=== PATIENT | female | born 1990 | race Caucasian/White ===

== ENCOUNTER 2016-11-18 11:09 | Inpatient (IN) | payer MEDICARE, MEDICAID ==
[~2016-11-18] VITALS: Ht 160 cm; Wt 78.8 kg
[~2016-11-18 11:09] MED LIST: /DIVA50TA PO; ABIL400I IM; ADDE10CA PO; AMBI10TA PO; AMBI6.25 PO; ATIV1TAB10 PO; ATIV1TAB7 PO; BENZ5TA PO; CIPRODEX AU; CITA20TA2 PO; COGENTIN PO; DEPA1TAB3 PO; DEPA500T2 PO; HALD5INJ2 IM; HALDOL PO; HALO1TA PO; LEVA750T PO; MINI1CAP PO; ORTHTAB5 PO; RISP1TAB21 PO; RISP1TAB3 PO; RISP1TAB41 PO; RISP25INJ IM; RISP4TAB33 PO; TRAZ50TA4 PO; TRIL1TAB PO; TYLE325T5 PO; ZIPR80CA12 PO; [UNRECOGNIZED DRUG - OTHER] PO; [UNRECOGNIZED DRUG - OTHER] PO; [UNRECOGNIZED DRUG - OTHER] PO; no home meds
[2016-11-18 12:23] LABS: MEAN CORPUSCULAR HEMOGLOBIN 28.3 pg (27.0-33.0); MEAN CORPUSCULAR HGB CONC 33.8 g/dl (32.0-36.5); MEAN CORPUSCULAR VOLUME 83.7 fl (80.0-96.0); RED CELL DISTRIBUTION WIDTH 12.8 % (11.5-14.5); WHITE BLOOD COUNT 10.8 K/mm3 (4.0-10.0)
[2016-11-18 12:34] LABS: CONTROL LINE HCG INT CTR LINE PRESENT
[2016-11-18] MEDS ORDERED: GEOD40CA2 PO (12:34)
[2016-11-18 12:39] LABS: METHADONE URINE NEGATIVE (NEGATIVE)
[2016-11-18 12:48] LABS: ALBUMIN 4.4 GM/DL (3.2-5.2); ALBUMIN/GLOBULIN RATIO 1.42 (1.00-1.93); ALKALINE PHOSPHATASE 72 U/L (45-117); ALT/SGPT 26 U/L (12-78); ANION GAP 10 MEQ/L (8-16); AST/SGOT 21 U/L (15-37); BILIRUBIN,DIRECT 0.1 MG/DL (0.0-0.2); BILIRUBIN,TOTAL 0.5 MG/DL (0.2-1.0); BLOOD UREA NITROGEN 12 MG/DL (7-18); CALCIUM LEVEL 9.2 MG/DL (8.5-10.1); CARBON DIOXIDE LEVEL 24 MEQ/L (21-32); CHLORIDE LEVEL 105 MEQ/L (98-107); CREATININE FOR GFR 0.75 MG/DL (0.55-1.02); GLOMERULAR FILTRATION RATE > 60.0 (>60); GLUCOSE, FASTING 132 MG/DL (70-105); POTASSIUM SERUM 3.9 MEQ/L (3.5-5.1); SODIUM LEVEL 139 MEQ/L (136-145); TOTAL PROTEIN 7.5 GM/DL (6.4-8.2)
[2016-11-18] MEDS ORDERED: ZIPR80CA12 PO (13:58)
[2016-11-18 15:35] VITALS: BP 130/90
[2016-11-18] MEDS ORDERED: traZODone 50 MG TAB PO PRN (16:30)
[2016-11-18] MEDS ORDERED: MAALOX 30 ML SUSP *UDC PO PRN (16:30)
[2016-11-18] MEDS ORDERED: ACETAMINOPHEN TAB 650MG DOSE (2X325MG) PO PRN (16:30)
[2016-11-18] MEDS ORDERED: MOM 30ML SUSPENSION UDC PO PRN (16:30)
[2016-11-18] MEDS: ZIPRASIDONE 80 MG CAP (GEODON) PO SCH (17:47)
[2016-11-19] MEDS ORDERED: diphenhydrAMINE INJ 50MG/ML VIAL (J1200) IM PRN (11:15)
[2016-11-19] MEDS ORDERED: HALOPERIDOL 5 MG/ML VIAL (J1630) IM PRN (11:15)
[2016-11-19] MEDS ORDERED: LORazepam 2 MG/ML VIAL (J2060) IM PRN (11:15)
[2016-11-19] MEDS ORDERED: HALOPERIDOL 5 MG TAB PO PRN (11:15)
[2016-11-19] MEDS ORDERED: LORazepam 2 MG TAB PO PRN (11:15)
[2016-11-19] MEDS ORDERED: diphenhydrAMINE 50 MG CAP PO PRN (11:15)
--- NOTE | 2016-11-19 11:38 | HPEPDOC ---
Medical History and Physical Date of Admission Nov 18, 2016 at 14:12 History and Physical PCP: None ATTENDING: Dr. Kam Hoffmann HPI: 26yoF admitted to [facility] for schizoaffective disorder, being medically examined today. Patient is currently lying on the floor next to her bed in her room. She is currently declining to participate with history or physical examination. History is taken from the chart. There were no verbalized complaints at this time. PMHx: Bipolar disorder Schizoaffective disorder Depression PTSD ADHD Chronic knee pain Chronic back pain PSHX: ear graft 1995 Tympanostomy tubes SOCHX: Resides in: [facility] Marital Status: Single Kids: [id number] son Employment: Unemployed Tobacco use: Prior smoker ETOH: denies Illicit Drugs: Denies IV Drug Use: Denies Tattoos done unprofessionally: Denies FAMHX: Mother: Alive, well Father: Alive, well Children: Alive, well ROS: Patient is unable to provide at this time. PE: Patient declines to participate at this time. EK04/05/16 Normal sinus rhythm with sinus arrhythmia Nonspecific ST-T wave abnormalities No significant change when compared to prior tracing of 06/04/2014 A&P: 26yoF admitted to [facility] for schizoaffective disorder. 1. Psych. Plan per Psychiatry. EKG on file. Will update. 2. History of Chronic knee pain and chronic back pain. Tylenol as needed. 3. Follow up. No Primary Care Provider. Will attempt to establish PCP on discharge. 4. Mild leukocytosis. Patient is afebrile. Likely stress response. Recheck CBC in a.m. 5. Staff member Abril MAYERS was present during attempt to complete history and physical exam. Vital Signs Vital Signs Date Time Temp Pulse Resp B/P Pulse Ox O2 Delivery O2 Flow Rate FiO2 11/18/16 15:35 99.0 90 16 130/90 98 Room Air Laboratory Data Labs 24H Laboratory Tests 2 11/18/16 12:02: Acetaminophen Level < 2.0L, Aspartate Amino Transf (AST/SGOT) 21, Alanine Aminotransferase (ALT/SGPT) 26, Alkaline Phosphatase 72, Total Bilirubin 0.5, Direct Bilirubin 0.1, Albumin 4.4, Albumin/Globulin Ratio 1.42, Anion Gap 10, Calcium Level 9.2, Ethyl Alcohol Level < 0.003, Glomerular Filtration Rate > 60.0, Human Chorionic Gonadotropin, Qual NEGATIVE, Salicylates Level < 1.7L, Thyroid Stimulating Hormone (TSH) 1.470, Total Protein 7.5, Urine Amphetamines Screen NEGATIVE, Urine Benzodiazepines Screen NEGATIVE, Urine Opiates Screen NEGATIVE, Urine Barbiturates Screen NEGATIVE, Urine Cannabinoids Screen NEGATIVE , Urine Cocaine Metabolite Screen NEGATIVE, Urine Methadone Screen NEGATIVE, Urine Phencyclidine Screen NEGATIVE CBC/BMP Laboratory Tests 11/18/16 12:02 Red Blood Count 5.30, Mean Corpuscular Volume 83.7, Mean Corpuscular Hemoglobin 28.3, Mean Corpuscular Hemoglobin Concent 33.8, Red Cell Distribution Width 12.8 Home Medications Scheduled Ziprasidone Hydrochloride (Ziprasidone HCl) 80 Mg Cap 80 MG PO QPM Allergies Coded Allergies: Amoxicillin (Verified Allergy, Intermediate, Hives , 11/01/13) Sulfa Drugs (Verified Allergy, Mild, Rash, fever, vomiting, 11/01/13) Azithromycin (Verified Allergy, Unknown, 11/18/16) interacts with Brittney Shrestha Nov 19, 2016 11:37
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
[2016-11-19] MEDS: ZIPRASIDONE 80 MG CAP (GEODON) PO SCH (17:41)
[2016-11-19 18:00] VITALS: BP 130/87
[2016-11-20 06:30] VITALS: BP 139/96
[2016-11-20 07:37] LABS: BASO % 0.4 % (0.0-1.0); EOS # 0.3 K/mm3 (0.0-0.50); EOS % 4.1 % (0.0-3.0); LARGE UNSTAINED CELL # 0.2 K/mm3 (0.0-0.4); LYMPH # 2.8 K/mm3 (1.5-6.5); MEAN CORPUSCULAR HEMOGLOBIN 28.6 pg (27.0-33.0); MEAN CORPUSCULAR HGB CONC 33.6 g/dl (32.0-36.5); MEAN CORPUSCULAR VOLUME 85.1 fl (80.0-96.0); MONO # 0.3 K/mm3 (0.0-0.8); MONO % 4.4 % (0.0-5.0); NEUTROPHILS # 3.8 K/mm3 (1.8-7.7); PLATELET COUNT, AUTOMATED 299 k/mm3 (150-450); RED CELL DISTRIBUTION WIDTH 12.9 % (11.5-14.5); WHITE BLOOD COUNT 7.3 K/mm3 (4.0-10.0)
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
[2016-11-20] MEDS: ZIPRASIDONE 80 MG CAP (GEODON) PO SCH (17:40)
[2016-11-20] MEDS ORDERED: ZIPRASIDONE 20MG CAPSULE (GEODON) PO SCH (18:00)
[2016-11-21 06:25] VITALS: BP 143/100
--- NOTE | 2016-11-21 13:52 | IPNPDOC ---
[facility] Progress Note Progress Note DATE OF SERVICE: 11/21/16 HISTORY: Day 4 of admission for Bipolar I disorder VITAL SIGNS: See below. NEW TEST RESULTS: na CURRENT MEDICATIONS: See below. MENTAL STATUS EXAMINATION: Patient is a 26-year old female, who is being treated for delusions and paranoia with fast onset earlier this week. Pt is observed on the unit pacing rapidly through the hallways much of the time. Speech: Is deliberate and fluent Language skills are very good Thought processes include: paranoia, suspicion, delusions of identify, persecution. Can be logical when talking about her past, or her education. Thought content: answered questions appropriately Abstract reasoning, and computation: good Description of abnormal or psychotic thoughts: persistent belief that she is here illegally, the "police illegally entered my home". Judgment: fair Insight: poor Orientation: oriented to day, time and situation and person Recent and remote memory: intact Attention span and concentration: about 10 minutes Fund of knowledge: very good Mood:"Okay. I'm stable". Affect: hyper DIAGNOSES: 1. bipolar I, current episode depressed with delusional features, denies voices or visions 2. 3. ASSESSMENT:Pt is complying with medication increase. She has taken 2 dose of Geodon at 100 mg (increased from 80 mg on admission). Will continue to titrate Geodon upwards. Outpatient provider, Lesa, at [facility] states that on the day prior to admission, Latrice was "really good, the best we have seen her". They are perplexed by her decompensation. To their knowledge she was taking her medications as prescribed. No release on file to contact family to see if they can verify this. Pt has tolerated the increase in geodon without difficulty. MANAGEMENT PLAN: Raise geodon to 120mg tonight with dinner. 80 mg and 40 mg. Pt was agreeable to talking with web content writer this morning but declined to talk this afternoon when she was going to be informed of her dose increase. We hope she will accept the increase without any difficulty. Dosing discussed with Dr. Bernal. TIME SPENT: 30 minutes. Vital Signs Vital Signs Date Time Temp Pulse Resp B/P Pulse Ox O2 Delivery O2 Flow Rate FiO2 11/21/16 06:25 98.5 76 16 143/100 11/18/16 15:35 98 Room Air Current Medications Current Medications Acetaminophen (Tylenol Tab) 650 mg Q6HP PRN PO HEADACHE or DISCOMFORT; Start at 16:30; Stop 12/18/16 at 16:29 Al Hydrox/Mg Hydrox/Simethicone (Mylanta) 30 ml Q4HP PRN PO HEARTBURN/ INDIGESTION; Start 11/18/16 at 16:30; Stop 12/18/16 at 16:29 Diphenhydramine HCl (Benadryl) 50 mg Q6HP PRN IM AGITATION; Start 11/19/16 at 11:15; Stop 12/19/16 at 11:14; Status Cancel Diphenhydramine HCl (Benadryl) 50 mg Q8HP PRN PO AGITATION; Start 11/19/16 at 11:15; Stop 12/19/16 at 11:14 Haloperidol (Haldol) 5 mg Q8HP PRN IM AGITATION; Start 11/19/16 at 11:15; Stop 12/19/16 at 11:14; Status Cancel Haloperidol (Haldol) 5 mg Q8HP PRN PO AGITATION; Start 11/19/16 at 11:15; Stop 12/19/16 at 11:14 Home Med (Med Rec Complete!) ASDIRECTED XX ; Start 11/18/16 at 14:00; Stop 05/27 at 14:01; Status DC Lorazepam (Ativan) 2 mg Q6HP PRN IM AGITATION; Start 11/19/16 at 11:15; Stop at 11:14; Status Cancel Lorazepam (Ativan) 2 mg Q8HP PRN PO AGITATION; Start 11/19/16 at 11:15; Stop at 11:14 Magnesium Hydroxide (Milk Of Magnesia) 30 ml DAILYPRN PRN PO CONSTIPATION; Start 11/18/16 at 16:30; Stop 12/18/16 at 16:29 Trazodone HCl (Desyrel) 50 mg QHSP PRN PO INSOMNIA; Start 11/18/16 at 16:30; Stop 12/18/16 at 16:29 Ziprasidone (Geodon) 20 mg DAILY@18 PO Last administered on 11/20/16t 17:40; Start 11/20/16 at 18:00; Stop 12/20/16 at 17:59 Ziprasidone (Geodon) 80 mg DAILY@18 PO Last administered on 11/20/16t 17:40; Start 11/18/16 at 18:00; Stop 12/18/16 at 17:59 Allergies Coded Allergies: Amoxicillin (Verified Allergy, Intermediate, Hives , 11/01/13) Sulfa Drugs (Verified Allergy, Mild, Rash, fever, vomiting, 11/01/13) Azithromycin (Verified Allergy, Unknown, 11/18/16) interacts with Leticia Hurley Nov 21, 2016 13:52
[2016-11-21] MEDS: ZIPRASIDONE 20MG CAPSULE (GEODON) PO SCH (17:58)
[2016-11-21] MEDS: ZIPRASIDONE 80 MG CAP (GEODON) PO SCH (17:58)
[2016-11-21 18:00] VITALS: BP 153/91
[2016-11-22] MEDS ORDERED: HALOPERIDOL 5 MG/ML VIAL (J1630) IM STA (01:57)
[2016-11-22] MEDS ORDERED: diphenhydrAMINE INJ 50MG/ML VIAL (J1200) IM STA (01:57)
[2016-11-22] MEDS ORDERED: LORazepam 2 MG/ML VIAL (J2060) IM STA (01:57)
[2016-11-22] MEDS: **PENDING PPD ENTRY XX SCH (09:00)
--- NOTE | 2016-11-22 10:19 | IPNPDOC ---
[facility] Progress Note Progress Note DATE OF SERVICE: 11/22/16 HISTORY: day 6 of admission VITAL SIGNS: See below. NEW TEST RESULTS: none CURRENT MEDICATIONS: See below. MENTAL STATUS EXAMINATION: Patient is a 26-year old female, who is being tx for bipolar disorder, current episode depressed with delusions. Pt had a very poor evening and night last night. She believed the med nurse was attempting to give her "a date rape drug" when in fact it was her Geodon. She states the medication was not taken out of the machine so she refused to take it. She became agitated later in the night, running toward the exit and had to be redirected by staff. She threatened to kill staff and picked up a chair. agitation orders were obtained from lead mason tender M.D. and pt was medicated with haldol 10 mg, ativan 2 mg and benadryl 50 mg IM. She was placed in the seclusion room and given time to calm and get her thoughts and behavior together. This morning she would not talk to advertising copy writer when initially assessed. Later after she slept more she asked to be returned to her room which nursing staff allowed. [employer] again attempted to engage her and she insists on being here illegally and accuses staff of trying to drug her. She does not offer any assurances that she will keep her behavior under control while on the unit. She began to talk very loudly. She is pacing. She remains delusional about staff intentions, medications and unit activities. Pt must have been concealing the fact she had stopped her medications prior to admission. She again denied advertising copy writer permission to speak with her family. It has been explained to her that her failure to cooperate with request for information is delaying her release from the hospital. She does not offer any insight into how sick she currently is. Speech: Is loud, rapid Language skills are spontaneous when she wants to be Thought processes include: delusions, fear, suspicions, persecution, identity theft. Thought content: "my parents have stolen my identity" "I am not an idiot. What you are ding here is illegal". Abstract reasoning, and computation: poor Description of associations: fair Description of abnormal or psychotic thoughts: delusions of persecution, denies SI, HI and hallucinations. she did appear at one time to be watching something not observed by advertising copy writer. Judgment: poor Insight: very limited, poor. Orientation: "I'm not an idiot". Recent and remote memory: good Attention span and concentration: fair Language: good Fund of knowledge: good Mood: angry/depressed Affect: irritable DIAGNOSES: 1. Bipolar II disorder, current episode depressed with delusions 2. Cluster B traits 3. ASSESSMENT: pt was not compliant to medication regime last night when she was to receive an increased dose of geodon. She received IM's last night as she was DTS/DTO. She denies any threats were made by her to the staff offering, "I was only trying to defend myself". Pt remains delusional and agitated. She is visible in the milieu and attending and participating in groups. Pt reports eating and sleeping well. Confirmed by staff. MANAGEMENT PLAN: will see about getting a geodon level, continue geodon at 120 mg with food at 1800, continue close observation, keep trying to get pts consent to speak with parents. Pt would benifit from IM medication as an outpatient but is not rationale or logical enough at this time to have this conversation about changing her meds. She cannot be trusted to take oral medications without strict supervision. This would include observing her after ingestion to make sure she does not vomit. Pt would benefit from supervised housing if she refuses IM meds to help with medication compliance. Will discuss with discharge planners. Pt will be referred to [facility] for ongoing treatment as it appears her inpatient stay will be prolonged. She is not demonstrating much progress since her admission and in fact seems to be getting more delusional. Her delusions are penetrating every area of her life and she is not cooperating with discharge planning. TIME SPENT: minutes. Vital Signs Vital Signs Date Time Temp Pulse Resp B/P Pulse Ox O2 Delivery O2 Flow Rate FiO2 11/21/16 18:00 99.2 95 16 153/91 11/18/16 15:35 98 Room Air Current Medications Current Medications Acetaminophen (Tylenol Tab) 650 mg Q6HP PRN PO HEADACHE or DISCOMFORT; Start at 16:30; Stop 12/18/16 at 16:29 Al Hydrox/Mg Hydrox/Simethicone (Mylanta) 30 ml Q4HP PRN PO HEARTBURN/ INDIGESTION; Start 11/18/16 at 16:30; Stop 12/18/16 at 16:29 Diphenhydramine HCl (Benadryl) 50 mg Q6HP PRN IM AGITATION; Start 11/19/16 at 11:15; Stop 12/19/16 at 11:14; Status Cancel Diphenhydramine HCl (Benadryl) 50 mg Q8HP PRN PO AGITATION; Start 11/19/16 at 11:15; Stop 12/19/16 at 11:14 Haloperidol (Haldol) 5 mg Q8HP PRN IM AGITATION; Start 11/19/16 at 11:15; Stop 12/19/16 at 11:14; Status Cancel Haloperidol (Haldol) 5 mg Q8HP PRN PO AGITATION; Start 11/19/16 at 11:15; Stop 12/19/16 at 11:14 Home Med (Med Rec Complete!) ASDIRECTED XX ; Start 11/18/16 at 14:00; Stop 05/27 at 14:01; Status DC Lorazepam (Ativan) 2 mg Q6HP PRN IM AGITATION; Start 11/19/16 at 11:15; Stop at 11:14; Status Cancel Lorazepam (Ativan) 2 mg Q8HP PRN PO AGITATION; Start 11/19/16 at 11:15; Stop at 11:14 Magnesium Hydroxide (Milk Of Magnesia) 30 ml DAILYPRN PRN PO CONSTIPATION; Start 11/18/16 at 16:30; Stop 12/18/16 at 16:29 Trazodone HCl (Desyrel) 50 mg QHSP PRN PO INSOMNIA; Start 11/18/16 at 16:30; Stop 12/18/16 at 16:29 Ziprasidone (Geodon) 20 mg DAILY@18 PO Last administered on 11/20/16 17:40; Start 11/20/16 at 18:00; Stop 11/21/16 at 14:14; Status DC Ziprasidone (Geodon) 40 mg DAILY@18 PO ; Start 11/21/16 at 18:00; Stop 12/21/16 at 17:59 Ziprasidone (Geodon) 80 mg DAILY@18 PO Last administered on 11/20/16 17:40; Start 11/18/16 at 18:00; Stop 12/18/16 at 17:59 Allergies Coded Allergies: Amoxicillin (Verified Allergy, Intermediate, Hives , 11/01/13) Sulfa Drugs (Verified Allergy, Mild, Rash, fever, vomiting, 11/01/13) Azithromycin (Verified Allergy, Unknown, 11/18/16) interacts with Leticia Hurley Nov 22, 2016 10:19
[2016-11-22] MEDS: ZIPRASIDONE 80 MG CAP (GEODON) PO SCH (17:29)
[2016-11-22] MEDS: ZIPRASIDONE 20MG CAPSULE (GEODON) PO SCH (17:29)
[2016-11-23 06:36] VITALS: BP 149/107
[2016-11-23] MEDS: **PENDING PPD ENTRY XX SCH (07:36)
[2016-11-23] MEDS ORDERED: TUBERCULIN PPD 5 UNITS/0.1 ML ID ONE (10:00)
[2016-11-23] MEDS: ZIPRASIDONE 80 MG CAP (GEODON) PO SCH (17:44)
[2016-11-23] MEDS: ZIPRASIDONE 20MG CAPSULE (GEODON) PO SCH (17:44)
[2016-11-23 18:00] VITALS: BP 157/101
[2016-11-24] MEDS: **PENDING PPD ENTRY XX SCH (09:00)
[2016-11-24] MEDS ORDERED: PPD DOCUMENTATION ENTRY MISC XX SCH (10:00)
[2016-11-24] MEDS: ZIPRASIDONE 20MG CAPSULE (GEODON) PO SCH (17:43)
[2016-11-24] MEDS: ZIPRASIDONE 80 MG CAP (GEODON) PO SCH (17:43)
[2016-11-25] MEDS: **PENDING PPD ENTRY XX SCH (09:00)
--- NOTE | 2016-11-25 13:50 | IPNPDOC ---
[facility] Progress Note Progress Note DATE OF SERVICE: 11/25/16 HISTORY:day 8 of admission. Pt admitted due to delusions with continue to be problematic. VITAL SIGNS: See below. Diastolic BP continues to record as elevated. Likely due to her persistent pacing. NEW TEST RESULTS: pt is refusing to allow ziprazodone level. CURRENT MEDICATIONS: See below. MENTAL STATUS EXAMINATION: Patient is a 26 year old female, who is being treated for bipolar I disorder. Pt is observed frequently pacing the hallways, not interacting with others. Speech: Is terse. Language skills are good Thought processes including: delusions. irrational and illogical Thought content: "there are no guidelines for that according to the [facility]. I'm going to call them right now", in reference to our discussion about her refusal to allow the blood draw. Abstract reasoning, and computation: poor Description of associations: good "I' m not an idiot". Description of abnormal or psychotic thoughts: delusions of persecution Judgment: poor Insight: very limited. Orientation: not assessed today. Recent and remote memory: intact Attention span and concentration: poor. Fund of knowledge: adequate Mood: irritable at times, pleasant other times. Affect: labile. DIAGNOSES: 1. bipolar I disorder, current episode depressed. 2. 3. ASSESSMENT:Pts affect remains labile but early in the day she was smiling and pleasant. She abruptly ended our conversation after about 3 mins when trying to discuss her refusal for labs. She got up and walked out of the room stating she was calling the [facility]. MANAGEMENT PLAN: will raise ziprazodone to 140 mg tonight and reassess for any improvement in thinking, rationalizing. Will add cogentin prn if pt has any c/o EPS. Needs to be converted to 2PC status and informed of plan to send her to [facility] but she will not remain engaged long enough to have the discussion. TIME SPENT: 30 minutes. Vital Signs Vital Signs Date Time Temp Pulse Resp B/P Pulse Ox O2 Delivery O2 Flow Rate FiO2 11/23/16 18:00 99.4 112 16 157/101 Current Medications Current Medications Acetaminophen (Tylenol Tab) 650 mg Q6HP PRN PO HEADACHE or DISCOMFORT; Start at 16:30; Stop 12/18/16 at 16:29 Al Hydrox/Mg Hydrox/Simethicone (Mylanta) 30 ml Q4HP PRN PO HEARTBURN/ INDIGESTION; Start 11/18/16 at 16:30; Stop 12/18/16 at 16:29 Diphenhydramine HCl (Benadryl) 50 mg Q6HP PRN IM AGITATION; Start 11/19/16 at 11:15; Stop 12/19/16 at 11:14; Status Cancel Diphenhydramine HCl (Benadryl) 50 mg Q8HP PRN PO AGITATION; Start 11/19/16 at 11:15; Stop 12/19/16 at 11:14 Haloperidol (Haldol) 5 mg Q8HP PRN IM AGITATION; Start 11/19/16 at 11:15; Stop 12/19/16 at 11:14; Status Cancel Haloperidol (Haldol) 5 mg Q8HP PRN PO AGITATION; Start 11/19/16 at 11:15; Stop 12/19/16 at 11:14 Home Med (Med Rec Complete!) ASDIRECTED XX ; Start 11/18/16 at 14:00; Stop 05/27 at 14:01; Status DC Lorazepam (Ativan) 2 mg Q6HP PRN IM AGITATION; Start 11/19/16 at 11:15; Stop at 11:14; Status Cancel Lorazepam (Ativan) 2 mg Q8HP PRN PO AGITATION; Start 11/19/16 at 11:15; Stop at 11:14 Magnesium Hydroxide (Milk Of Magnesia) 30 ml DAILYPRN PRN PO CONSTIPATION; Start 11/18/16 at 16:30; Stop 12/18/16 at 16:29 Non-Formulary Medication ( See Comment Field Below ) SEE COMMENTS SECT... 1T @10 XX ; Start 11/24/16 at 10:00; Stop 11/25/16 at 09:59; Status UNV Non-Formulary Medication ( See Comment Field Below ) SEE LABEL COMMENTS DAILY XX ; Start 11/22/16 at 09:00; Stop 12/22/16 at 08:59 Trazodone HCl (Desyrel) 50 mg QHSP PRN PO INSOMNIA; Start 11/18/16 at 16:30; Stop 12/18/16 at 16:29 Ziprasidone (Geodon) 20 mg DAILY@18 PO Last administered on 11/20/16 17:40; Start 11/20/16 at 18:00; Stop 11/21/16 at 14:14; Status DC Ziprasidone (Geodon) 40 mg DAILY@18 PO Last administered on 11/24/16 17:43; Start 11/21/16 at 18:00; Stop 12/21/16 at 17:59 Ziprasidone (Geodon) 80 mg DAILY@18 PO Last administered on 11/24/16 17:43; Start 11/18/16 at 18:00; Stop 12/18/16 at 17:59 Allergies Coded Allergies: Amoxicillin (Verified Allergy, Intermediate, Hives , 11/01/13) Sulfa Drugs (Verified Allergy, Mild, Rash, fever, vomiting, 11/01/13) Azithromycin (Verified Allergy, Unknown, 11/18/16) interacts with Leticia Hurley Nov 25, 2016 13:50
[2016-11-25] MEDS ORDERED: LORazepam 2 MG TAB PO PRN (14:00)
[2016-11-25] MEDS ORDERED: BENZTROPINE 1 MG TAB PO PRN (16:15)
[2016-11-25] MEDS: ZIPRASIDONE 80 MG CAP (GEODON) PO SCH (18:12)
[2016-11-25] MEDS: ZIPRASIDONE 20MG CAPSULE (GEODON) PO SCH (18:16)
[2016-11-26] MEDS: **PENDING PPD ENTRY XX SCH (08:53)
--- NOTE | 2016-11-26 16:15 | IPNPDOC ---
[facility] Progress Note Progress Note DATE OF SERVICE: 11/26/16 HISTORY: day 9 of admission. Pt remains non compliant with labs, pacing in cary , and continues to decompensate. VITAL SIGNS: See below. NEW TEST RESULTS: na CURRENT MEDICATIONS: See below. MENTAL STATUS EXAMINATION: Patient is a 26 year old female, who is under care for bipolar I disorder, current episode depressed with psychotic features. Speech: Is terse, spontaneous Language skills are grossly intact Thought processes including:delusions "I am a missing person. The [facility] troopers are looking for me". Thought content: distracted. Abstract reasoning, and computation: poor Description of associations: poor Description of abnormal or psychotic thoughts: persistent delusions, appears to be responding to internal stimuli today. Observed talking to self, giggling and smiling. Judgment: poor Insight: poor. Orientation: not assessed Recent and remote memory: intact Attention span and concentration: poor Fund of knowledge: unable to assess Mood: irritable, angry Affect: labile DIAGNOSES: Bipolar I disorder, current episode depressed. ASSESSMENT:Pt is no longer complying with medication increasing. Refused some of her meds yesterday at 1800 hrs. Mouth checks done as staff observes the same decline in pts mental status that engineering writer is documenting. She appears to be getting worse instead of better. She appears to be more psychotic than when she was admitted. Not compliant with request for geodon level. MANAGEMENT PLAN: 2 PC paperwork initiated today. Pt aware of plan to transfer her to long-term care. Would not discuss with engineering writer. Insists she is stable. Walks out in the middle of discussion. TIME SPENT: 15 minutes. Vital Signs Vital Signs Date Time Temp Pulse Resp B/P Pulse Ox O2 Delivery O2 Flow Rate FiO2 11/25/16 18:00 98.6 16 11/23/16 18:00 112 157/101 Current Medications Current Medications Acetaminophen (Tylenol Tab) 650 mg Q6HP PRN PO HEADACHE or DISCOMFORT; Start at 16:30; Stop 12/18/16 at 16:29 Al Hydrox/Mg Hydrox/Simethicone (Mylanta) 30 ml Q4HP PRN PO HEARTBURN/ INDIGESTION; Start 11/18/16 at 16:30; Stop 12/18/16 at 16:29 Benztropine Mesylate (Cogentin) 1 mg DAILY PRN PO EPS; Start 11/25/16 at 16:15 ; Stop 12/25/16 at 16:14 Diphenhydramine HCl (Benadryl) 50 mg Q6HP PRN IM AGITATION; Start 11/19/16 at 11:15; Stop 12/19/16 at 11:14; Status Cancel Diphenhydramine HCl (Benadryl) 50 mg Q8HP PRN PO AGITATION; Start 11/19/16 at 11:15; Stop 12/19/16 at 11:14 Haloperidol (Haldol) 5 mg Q8HP PRN IM AGITATION; Start 11/19/16 at 11:15; Stop 12/19/16 at 11:14; Status Cancel Haloperidol (Haldol) 5 mg Q8HP PRN PO AGITATION; Start 11/19/16 at 11:15; Stop 12/19/16 at 11:14 Home Med (Med Rec Complete!) ASDIRECTED XX ; Start 11/18/16 at 14:00; Stop 05/27 at 14:01; Status DC Lorazepam (Ativan) 2 mg Q6HP PRN IM AGITATION; Start 11/19/16 at 11:15; Stop at 11:14; Status Cancel Lorazepam (Ativan) 2 mg Q8HP PRN PO AGITATION; Start 11/19/16 at 11:15; Stop at 13:53; Status DC Lorazepam (Ativan) 2 mg Q8HP PRN PO AGITATION; Start 11/25/16 at 14:00; Stop at 11:14 Magnesium Hydroxide (Milk Of Magnesia) 30 ml DAILYPRN PRN PO CONSTIPATION; Start 11/18/16 at 16:30; Stop 12/18/16 at 16:29 Non-Formulary Medication ( See Comment Field Below ) SEE COMMENTS SECT... 1T @10 XX ; Start 11/24/16 at 10:00; Stop 11/25/16 at 09:59; Status UNV Non-Formulary Medication ( See Comment Field Below ) SEE LABEL COMMENTS DAILY XX ; Start 11/22/16 at 09:00; Stop 12/22/16 at 08:59 Trazodone HCl (Desyrel) 50 mg QHSP PRN PO INSOMNIA; Start 11/18/16 at 16:30; Stop 12/18/16 at 16:29 Ziprasidone (Geodon) 20 mg DAILY@18 PO Last administered on 11/20/16 17:40; Start 11/20/16 at 18:00; Stop 11/21/16 at 14:14; Status DC Ziprasidone (Geodon) 40 mg DAILY@18 PO Last administered on 11/24/16 17:43; Start 11/21/16 at 18:00; Stop 11/25/16 at 13:53; Status DC Ziprasidone (Geodon) 60 mg DAILY@18 PO Last administered on 11/25/16 18:16; Start 11/25/16 at 18:00; Stop 12/25/16 at 17:59 Ziprasidone (Geodon) 80 mg DAILY@18 PO Last administered on 11/25/16 18:12; Start 11/18/16 at 18:00; Stop 12/18/16 at 17:59 Allergies Coded Allergies: Amoxicillin (Verified Allergy, Intermediate, Hives , 11/01/13) Sulfa Drugs (Verified Allergy, Mild, Rash, fever, vomiting, 11/01/13) Azithromycin (Verified Allergy, Unknown, 11/18/16) interacts with Leticia Hurley Nov 26, 2016 16:15
[2016-11-26] MEDS: ZIPRASIDONE 20MG CAPSULE (GEODON) PO SCH (17:54)
[2016-11-26] MEDS: ZIPRASIDONE 80 MG CAP (GEODON) PO SCH (17:54)
[2016-11-27] MEDS: **PENDING PPD ENTRY XX SCH (08:57)
--- NOTE | 2016-11-27 09:51 | IPNPDOC ---
[facility] Progress Note Progress Note DATE OF SERVICE: 11/27/16 HISTORY: Day 10 of admission. Pt wanted to meet and talk in the cary today. Conversation did not last 5 minutes. VITAL SIGNS: See below. NEW TEST RESULTS: none CURRENT MEDICATIONS: See below. MENTAL STATUS EXAMINATION: Patient is a 26-year old female, who is dx with Bipolar I disorder. Today she tells me she understands why she is going to [place] and she also stated she was taking her medication everyday. She is dressed in hospital attire and pacing the halls frequently. Her demeanor was pleasant. Speech: Is spontaneous, reasonable rate and rhythm, good volume. Language skills are adequate Thought processes including: remains delusional and paranoid. Thought content: "I'm here illegally". Abstract reasoning, and computation: poor Description of associations: adequate. Description of abnormal or psychotic thoughts: Judgment: poor Insight: poor. Orientation: Recent and remote memory: good Attention span and concentration: poor attention span. concentration poor Fund of knowledge: adequate. Mood:euthymic. Affect: incongruent. DIAGNOSES: 1. Bipolar I disorder, depressed with delusions 2. Cluster B traits. ASSESSMENT:Pt states she is taking her medication and despite her persistent paranoia and delusions we cannot prove that she is not taking them. MANAGEMENT PLAN: 2 PC paperwork initiated. Pt is aware of plan to transfer and requests a hearing. This will take place tomorrow. TIME SPENT: minutes. Vital Signs Vital Signs Date Time Temp Pulse Resp B/P Pulse Ox O2 Delivery O2 Flow Rate FiO2 11/25/16 18:00 98.6 16 11/23/16 18:00 112 157/101 Current Medications Current Medications Acetaminophen (Tylenol Tab) 650 mg Q6HP PRN PO HEADACHE or DISCOMFORT; Start at 16:30; Stop 12/18/16 at 16:29 Al Hydrox/Mg Hydrox/Simethicone (Mylanta) 30 ml Q4HP PRN PO HEARTBURN/ INDIGESTION; Start 11/18/16 at 16:30; Stop 12/18/16 at 16:29 Benztropine Mesylate (Cogentin) 1 mg DAILY PRN PO EPS; Start 11/25/16 at 16:15 ; Stop 12/25/16 at 16:14 Diphenhydramine HCl (Benadryl) 50 mg Q6HP PRN IM AGITATION; Start 11/19/16 at 11:15; Stop 12/19/16 at 11:14; Status Cancel Diphenhydramine HCl (Benadryl) 50 mg Q8HP PRN PO AGITATION; Start 11/19/16 at 11:15; Stop 12/19/16 at 11:14 Haloperidol (Haldol) 5 mg Q8HP PRN IM AGITATION; Start 11/19/16 at 11:15; Stop 12/19/16 at 11:14; Status Cancel Haloperidol (Haldol) 5 mg Q8HP PRN PO AGITATION; Start 11/19/16 at 11:15; Stop 12/19/16 at 11:14 Home Med (Med Rec Complete!) ASDIRECTED XX ; Start 11/18/16 at 14:00; Stop 05/27 at 14:01; Status DC Lorazepam (Ativan) 2 mg Q6HP PRN IM AGITATION; Start 11/19/16 at 11:15; Stop at 11:14; Status Cancel Lorazepam (Ativan) 2 mg Q8HP PRN PO AGITATION; Start 11/19/16 at 11:15; Stop at 13:53; Status DC Lorazepam (Ativan) 2 mg Q8HP PRN PO AGITATION; Start 11/25/16 at 14:00; Stop at 11:14 Magnesium Hydroxide (Milk Of Magnesia) 30 ml DAILYPRN PRN PO CONSTIPATION; Start 11/18/16 at 16:30; Stop 12/18/16 at 16:29 Non-Formulary Medication ( See Comment Field Below ) SEE COMMENTS SECT... 1T @10 XX ; Start 11/24/16 at 10:00; Stop 11/25/16 at 09:59; Status UNV Non-Formulary Medication ( See Comment Field Below ) SEE LABEL COMMENTS DAILY XX ; Start 11/22/16 at 09:00; Stop 12/22/16 at 08:59 Trazodone HCl (Desyrel) 50 mg QHSP PRN PO INSOMNIA; Start 11/18/16 at 16:30; Stop 12/18/16 at 16:29 Ziprasidone (Geodon) 20 mg DAILY@18 PO Last administered on 11/20/16 17:40; Start 11/20/16 at 18:00; Stop 11/21/16 at 14:14; Status DC Ziprasidone (Geodon) 40 mg DAILY@18 PO Last administered on 11/24/16 17:43; Start 11/21/16 at 18:00; Stop 11/25/16 at 13:53; Status DC Ziprasidone (Geodon) 60 mg DAILY@18 PO Last administered on 11/26/16 17:54; Start 11/25/16 at 18:00; Stop 12/25/16 at 17:59 Ziprasidone (Geodon) 80 mg DAILY@18 PO Last administered on 11/26/16 17:54; Start 11/18/16 at 18:00; Stop 12/18/16 at 17:59 Allergies Coded Allergies: Amoxicillin (Verified Allergy, Intermediate, Hives , 11/01/13) Sulfa Drugs (Verified Allergy, Mild, Rash, fever, vomiting, 11/01/13) Azithromycin (Verified Allergy, Unknown, 11/18/16) interacts with Leticia Hurley Nov 27, 2016 09:51 Leticia Garcia Nov 27, 2016 09:51
[2016-11-27] MEDS: ZIPRASIDONE 20MG CAPSULE (GEODON) PO SCH (17:57)
[2016-11-27] MEDS: ZIPRASIDONE 80 MG CAP (GEODON) PO SCH (17:57)
[2016-11-28] MEDS: **PENDING PPD ENTRY XX SCH (08:00)
--- NOTE | 2016-11-28 10:54 | IPNPDOC ---
[facility] Progress Note Progress Note DATE OF SERVICE: 11/28/16 HISTORY: Day 11 of admission. Administrative hearing scheduled for today. VITAL SIGNS: See below. NEW TEST RESULTS: na CURRENT MEDICATIONS: See below. MENTAL STATUS EXAMINATION: Patient is a 26-year old female, who is dx with bipolar I disorder. attempted to engage her in conversation this morning. She is pacing and dressed in Hospital garb. Speech: Is spontaneous, terse Language skills are intact Thought processes: paranoid, delusional "I am here in illegally. The customer engagement representative got a ibanez to my house". Thought content: "I don't want a hearing. You can have a hearing. I don't want a rotary filter operator. I'm not going". Abstract reasoning, and computation: poor Description of associations: not addressed Description of abnormal or psychotic thoughts: delusions of persecution Judgment: poor Insight: poor. Orientation: oriented to person and place. Recent and remote memory: pt would not engage Attention span and concentration: limited Fund of knowledge: full Mood:irritable. Affect: anxious, hostile DIAGNOSES: 1. Bipolar I disorder 2. Cluster B traits ASSESSMENT:Pt is taking medication. Staff did mouth check yesterday and pt appears to be complying. She continues to refuse labs. She refuses to sign JOSE to contact family or CPS. Pt does not remain in conversation long enough to discuss plans for transfer or discharge. She does not present as ready for discharge as no improvement is noticeable. She is as delusional as she was on admission and we suspect she may be more psychotic with perceptual disturbances occurring. She will not address our concerns, refusing to speak and walking away. She is observed sleeping at night. She is eating at meal times. She is refusing vital signs about one a day. Pt was visited by the real estate attorney from mental hygiene legal services and refused to participate in the hearing today. MANAGEMENT PLAN: Will try to get her consent to raise the Geodon to 160 mg in the evening. Will attempt to get her cooperation to take 80 mg bid with food. Will attempt to discuss a change in medication with her. Would like to obtain BP when pt is at rest not pacing but she is not cooperative to this simple request. TIME SPENT: 30minutes. Vital Signs Vital Signs Date Time Temp Pulse Resp B/P Pulse Ox O2 Delivery O2 Flow Rate FiO2 11/25/16 18:00 98.6 16 4/15/17 18:00 112 157/101 Current Medications Current Medications Acetaminophen (Tylenol Tab) 650 mg Q6HP PRN PO HEADACHE or DISCOMFORT; Start at 16:30; Stop 12/18/16 at 16:29 Al Hydrox/Mg Hydrox/Simethicone (Mylanta) 30 ml Q4HP PRN PO HEARTBURN/ INDIGESTION; Start 11/18/16 at 16:30; Stop 12/18/16 at 16:29 Benztropine Mesylate (Cogentin) 1 mg DAILY PRN PO EPS; Start 11/25/16 at 16:15 ; Stop 12/25/16 at 16:14 Diphenhydramine HCl (Benadryl) 50 mg Q6HP PRN IM AGITATION; Start 11/19/16 at 11:15; Stop 12/19/16 at 11:14; Status Cancel Diphenhydramine HCl (Benadryl) 50 mg Q8HP PRN PO AGITATION; Start 11/19/16 at 11:15; Stop 12/19/16 at 11:14 Haloperidol (Haldol) 5 mg Q8HP PRN IM AGITATION; Start 11/19/16 at 11:15; Stop 12/19/16 at 11:14; Status Cancel Haloperidol (Haldol) 5 mg Q8HP PRN PO AGITATION; Start 11/19/16 at 11:15; Stop 12/19/16 at 11:14 Home Med (Med Rec Complete!) ASDIRECTED XX ; Start 11/18/16 at 14:00; Stop 05/27 at 14:01; Status DC Lorazepam (Ativan) 2 mg Q6HP PRN IM AGITATION; Start 11/19/16 at 11:15; Stop at 11:14; Status Cancel Lorazepam (Ativan) 2 mg Q8HP PRN PO AGITATION; Start 11/19/16 at 11:15; Stop at 13:53; Status DC Lorazepam (Ativan) 2 mg Q8HP PRN PO AGITATION; Start 11/25/16 at 14:00; Stop at 11:14 Magnesium Hydroxide (Milk Of Magnesia) 30 ml DAILYPRN PRN PO CONSTIPATION; Start 11/18/16 at 16:30; Stop 12/18/16 at 16:29 Non-Formulary Medication ( See Comment Field Below ) SEE COMMENTS SECT... 1T @10 XX ; Start 11/24/16 at 10:00; Stop 11/25/16 at 09:59; Status UNV Non-Formulary Medication ( See Comment Field Below ) SEE LABEL COMMENTS DAILY XX ; Start 11/22/16 at 09:00; Stop 12/22/16 at 08:59 Trazodone HCl (Desyrel) 50 mg QHSP PRN PO INSOMNIA; Start 11/18/16 at 16:30; Stop 12/18/16 at 16:29 Ziprasidone (Geodon) 20 mg DAILY@18 PO Last administered on 11/20/16 17:40; Start 11/20/16 at 18:00; Stop 11/21/16 at 14:14; Status DC Ziprasidone (Geodon) 40 mg DAILY@18 PO Last administered on 11/24/16 17:43; Start 11/21/16 at 18:00; Stop 11/25/16 at 13:53; Status DC Ziprasidone (Geodon) 60 mg DAILY@18 PO Last administered on 11/27/16 17:57; Start 11/25/16 at 18:00; Stop 12/25/16 at 17:59 Ziprasidone (Geodon) 80 mg DAILY@18 PO Last administered on 11/27/16 17:57; Start 11/18/16 at 18:00; Stop 12/18/16 at 17:59 Allergies Coded Allergies: Amoxicillin (Verified Allergy, Intermediate, Hives , 11/01/13) Sulfa Drugs (Verified Allergy, Mild, Rash, fever, vomiting, 11/01/13) Azithromycin (Verified Allergy, Unknown, 11/18/16) interacts with Leticia Hurley Nov 28, 2016 10:54
[2016-11-28] MEDS: ZIPRASIDONE 80 MG CAP (GEODON) PO SCH (18:00)
[2016-11-28] MEDS: ZIPRASIDONE 20MG CAPSULE (GEODON) PO SCH (18:00)
[2016-11-29] MEDS: **PENDING PPD ENTRY XX SCH (08:35)
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
[2016-11-29] MEDS ORDERED: diphenhydrAMINE INJ 50MG/ML VIAL (J1200) IM STA (13:44)
[2016-11-29] MEDS ORDERED: HALOPERIDOL 10 MG TAB PO STA (13:44)
[2016-11-29] MEDS ORDERED: LORazepam 2 MG/ML VIAL (J2060) IV STA (13:44)
[2016-11-29] MEDS ORDERED: HALOPERIDOL 5 MG/ML VIAL (J1630) IM ONE (14:00)
[2016-11-29] MEDS: ZIPRASIDONE 20MG CAPSULE (GEODON) PO SCH (18:00)
[2016-11-29] MEDS: ZIPRASIDONE 80 MG CAP (GEODON) PO SCH (18:00)
[2016-11-30 06:22] VITALS: BP 138/84
[2016-11-30] MEDS: **PENDING PPD ENTRY XX SCH (09:00)
[2016-11-30] MEDS: ZIPRASIDONE 20MG CAPSULE (GEODON) PO SCH (17:42)
[2016-11-30] MEDS: ZIPRASIDONE 80 MG CAP (GEODON) PO SCH (17:42)
[2016-12-01 06:59] VITALS: BP 157/94
[2016-12-01] MEDS: **PENDING PPD ENTRY XX SCH (08:49)
[2016-12-01] MEDS: ZIPRASIDONE 20MG CAPSULE (GEODON) PO SCH (17:47)
[2016-12-01] MEDS: ZIPRASIDONE 80 MG CAP (GEODON) PO SCH (17:47)
[2016-12-01 18:00] VITALS: BP 132/83
[2016-12-02 06:22] VITALS: BP 146/81
[2016-12-02] MEDS: **PENDING PPD ENTRY XX SCH (08:51)
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
[2016-12-02] MEDS: ZIPRASIDONE 80 MG CAP (GEODON) PO SCH (17:40)
[2016-12-02] MEDS: ZIPRASIDONE 20MG CAPSULE (GEODON) PO SCH (17:40)
[2016-12-03] MEDS: **PENDING PPD ENTRY XX SCH (09:00)
--- NOTE | 2016-12-03 17:37 | IPNPDOC ---
[facility] Progress Note Progress Note DATE OF SERVICE: 12/03/16 HISTORY: Day 16 of admission. Awaiting word of acceptance with transfer to [facility]. VITAL SIGNS: See below. NEW TEST RESULTS: na CURRENT MEDICATIONS: See below. MENTAL STATUS EXAMINATION: Patient is a 26 year old female, who is being treated for Bipolar I disorder, current episode mixed with psychotic features. Speech: Is spontaneous Language skills are good Thought processes : delusions persist. Thought content: "If you show me where the FDA has approved a Geodon level I will consider it." Abstract reasoning, and computation: poor. Description of associations: good. Description of abnormal or psychotic thoughts: "I am suing you. I am fine. I am stable and need to get out of here." Judgment:poor Insight: poor Orientation: good to person and place. Recent and remote memory: intact Attention span and concentration: limited, interactions are very short. Fund of knowledge: full but distorted Mood: "I'm fine" Affect: hostile. DIAGNOSES: 1. Bipolar I disorder current episode mixed 2. Cluster B traits ASSESSMENT:Pt is being most difficult and uncooperative with many aspects of treatment. Is not stable enough to participate in groups and unit milieu. MANAGEMENT PLAN: Pt has resumed taking Geodon at 1800 hrs. TIME SPENT: 15 minutes. Vital Signs Vital Signs Date Time Temp Pulse Resp B/P Pulse Ox O2 Delivery O2 Flow Rate FiO2 12/02/16 06:22 98.7 97 16 146/81 Room Air Current Medications Current Medications Acetaminophen (Tylenol Tab) 650 mg Q6HP PRN PO HEADACHE or DISCOMFORT; Start at 16:30; Stop 12/18/16 at 16:29 Al Hydrox/Mg Hydrox/Simethicone (Mylanta) 30 ml Q4HP PRN PO HEARTBURN/ INDIGESTION; Start 11/18/16 at 16:30; Stop 12/18/16 at 16:29 Benztropine Mesylate (Cogentin) 1 mg DAILY PRN PO EPS; Start 11/25/16 at 16:15 ; Stop 12/25/16 at 16:14 Diphenhydramine HCl (Benadryl) 50 mg Q6HP PRN IM AGITATION; Start 11/19/16 at 11:15; Stop 12/19/16 at 11:14; Status Cancel Diphenhydramine HCl (Benadryl) 50 mg Q8HP PRN PO AGITATION; Start 11/19/16 at 11:15; Stop 12/19/16 at 11:14 Haloperidol (Haldol) 5 mg Q8HP PRN IM AGITATION; Start 11/19/16 at 11:15; Stop 12/19/16 at 11:14; Status Cancel Haloperidol (Haldol) 5 mg Q8HP PRN PO AGITATION; Start 11/19/16 at 11:15; Stop 12/19/16 at 11:14 Home Med (Med Rec Complete!) ASDIRECTED XX ; Start 11/18/16 at 14:00; Stop 05/27 at 14:01; Status DC Lorazepam (Ativan) 2 mg Q6HP PRN IM AGITATION; Start 11/19/16 at 11:15; Stop at 11:14; Status Cancel Lorazepam (Ativan) 2 mg Q8HP PRN PO AGITATION; Start 11/19/16 at 11:15; Stop at 13:53; Status DC Lorazepam (Ativan) 2 mg Q8HP PRN PO AGITATION; Start 11/25/16 at 14:00; Stop at 11:14 Magnesium Hydroxide (Milk Of Magnesia) 30 ml DAILYPRN PRN PO CONSTIPATION; Start 11/18/16 at 16:30; Stop 12/18/16 at 16:29 Non-Formulary Medication ( See Comment Field Below ) SEE COMMENTS SECT... 1T @10 XX ; Start 11/24/16 at 10:00; Stop 11/25/16 at 09:59; Status UNV Non-Formulary Medication ( See Comment Field Below ) SEE LABEL COMMENTS DAILY XX ; Start 11/22/16 at 09:00; Stop 12/22/16 at 08:59 Trazodone HCl (Desyrel) 50 mg QHSP PRN PO INSOMNIA; Start 11/18/16 at 16:30; Stop 12/18/16 at 16:29 Ziprasidone (Geodon) 20 mg DAILY@18 PO Last administered on 11/20/16t 17:40; Start 11/20/16 at 18:00; Stop 11/21/16 at 14:14; Status DC Ziprasidone (Geodon) 40 mg DAILY@18 PO Last administered on 11/24/16 17:43; Start 11/21/16 at 18:00; Stop 11/25/16 at 13:53; Status DC Ziprasidone (Geodon) 60 mg DAILY@18 PO Last administered on 12/02/16 17:40; Start 11/25/16 at 18:00; Stop 12/25/16 at 17:59 Ziprasidone (Geodon) 80 mg DAILY@18 PO Last administered on 12/02/16 17:40; Start 11/18/16 at 18:00; Stop 12/18/16 at 17:59 Allergies Coded Allergies: Amoxicillin (Verified Allergy, Intermediate, Hives , 11/01/13) Sulfa Drugs (Verified Allergy, Mild, Rash, fever, vomiting, 11/01/13) Azithromycin (Verified Allergy, Unknown, 11/18/16) interacts with Leticia Hurley Dec 03, 2016 17:37
[2016-12-03] MEDS: ZIPRASIDONE 20MG CAPSULE (GEODON) PO SCH (17:48)
[2016-12-03] MEDS: ZIPRASIDONE 80 MG CAP (GEODON) PO SCH (17:48)
[2016-12-04] MEDS: **PENDING PPD ENTRY XX SCH (08:56)
--- NOTE | 2016-12-04 12:07 | IPNPDOC ---
[facility] Progress Note Progress Note DATE OF SERVICE: 12/04/16 HISTORY: Day 16 of admission. No improvement. VITAL SIGNS: See below. NEW TEST RESULTS: still refusing Geodon level. CURRENT MEDICATIONS: See below. MENTAL STATUS EXAMINATION: Patient is a 26-year old female, who is dx with Bipolar I disorder, current episode is determined to be mixed in presentation. Wearing hospital pj bottoms and a T-shirt. Long hair, clean, paces frequently. Speech: Is terse Language skills are adequate Thought processes : paranoid, suspicious, delusional. Thought content: "You are not my doctor anymore. I am going to emma you. I am fine. I am stable on my meds". Abstract reasoning, and computation: poor Description of associations: adequate. Description of abnormal or psychotic thoughts: denies SI, has resumed taking Geodon and does not show psychosis when observed. Judgment:poor Insight: poor. Orientation: refused to participate Recent and remote memory: appears intact Attention span and concentration: short span of attention, concentration adequate. Fund of knowledge: good Mood: pleasant Affect: angry DIAGNOSES: 1. Bipolar I with mixed features 2. Cluster B traits ASSESSMENT:Yesterday pt told magnetic tape typewriter operator she would consider a Geodon level if magnetic tape typewriter operator provided information from the FDA that it is approved. No such information exists as the FDA is not in the laboratory business. She then told magnetic tape typewriter operator she was going to emma. She is stable and wants to be discharged. She added "that's all we need to talk about today" and left the area. Tub Tender will ask nursing staff to talk to pt to make sure she is not having akathesia related to the increase in Geodon. Pt refuses to consider any other antipsychotic for treament of bipolar. She refuses to discuss medications at all with magnetic tape typewriter operator. MANAGEMENT PLAN: TIME SPENT:15 minutes. Vital Signs Vital Signs Date Time Temp Pulse Resp B/P (MAP) Pulse Ox O2 Delivery O2 Flow Rate FiO2 12/02/16 06:22 98.7 97 16 146/81 (102) Room Air Current Medications Current Medications Acetaminophen (Tylenol Tab) 650 mg Q6HP PRN PO HEADACHE or DISCOMFORT; Start at 16:30; Stop 12/18/16 at 16:29 Al Hydrox/Mg Hydrox/Simethicone (Mylanta) 30 ml Q4HP PRN PO HEARTBURN/ INDIGESTION; Start 11/18/16 at 16:30; Stop 12/18/16 at 16:29 Benztropine Mesylate (Cogentin) 1 mg DAILY PRN PO EPS; Start 11/25/16 at 16:15 ; Stop 12/25/16 at 16:14 Diphenhydramine HCl (Benadryl) 50 mg Q6HP PRN IM AGITATION; Start 11/19/16 at 11:15; Stop 12/19/16 at 11:14; Status Cancel Diphenhydramine HCl (Benadryl) 50 mg Q8HP PRN PO AGITATION; Start 11/19/16 at 11:15; Stop 12/19/16 at 11:14 Diphenhydramine HCl (Benadryl) 50 mg STAT STAT IM Last administered on 02:18; Start 11/22/16 at 01:57; Stop 11/22/16 at 01:59; Status DC Diphenhydramine HCl (Benadryl) 50 mg STAT STAT IM Last administered on 14:08; Start 11/29/16 at 13:44; Stop 11/29/16 at 13:48; Status DC Haloperidol (Haldol) 5 mg Q8HP PRN IM AGITATION; Start 11/19/16 at 11:15; Stop 12/19/16 at 11:14; Status Cancel Haloperidol (Haldol) 5 mg Q8HP PRN PO AGITATION; Start 11/19/16 at 11:15; Stop 12/19/16 at 11:14 Haloperidol (Haldol) 10 mg STAT STAT IM Last administered on 11/22/16 02:18; Start 11/22/16 at 01:57; Stop 11/22/16 at 01:59; Status DC Haloperidol (Haldol) 10 mg STAT STAT PO ; Start 11/29/16 at 13:44; Stop at 13:45; Status Cancel Home Med (Med Rec Complete!) ASDIRECTED XX ; Start 11/18/16 at 14:00; Stop 05/27 at 14:01; Status DC Lorazepam (Ativan) 1 mg STAT STAT IV Last administered on 11/29/16 14:08; Start 11/29/16 at 13:44; Stop 11/29/16 at 13:48; Status DC Lorazepam (Ativan) 2 mg Q6HP PRN IM AGITATION; Start 11/19/16 at 11:15; Stop at 11:14; Status Cancel Lorazepam (Ativan) 2 mg Q8HP PRN PO AGITATION; Start 11/19/16 at 11:15; Stop at 13:53; Status DC Lorazepam (Ativan) 2 mg Q8HP PRN PO AGITATION; Start 11/25/16 at 14:00; Stop at 11:14 Lorazepam (Ativan) 2 mg STAT STAT IM Last administered on 11/22/16 02:18; Start 11/22/16 at 01:57; Stop 11/22/16 at 01:59; Status DC Magnesium Hydroxide (Milk Of Magnesia) 30 ml DAILYPRN PRN PO CONSTIPATION; Start 11/18/16 at 16:30; Stop 12/18/16 at 16:29 Non-Formulary Medication ( See Comment Field Below ) SEE COMMENTS SECT... 1T @10 XX ; Start 11/24/16 at 10:00; Stop 11/25/16 at 09:59; Status UNV Non-Formulary Medication ( See Comment Field Below ) SEE LABEL COMMENTS DAILY XX ; Start 11/22/16 at 09:00; Stop 12/22/16 at 08:59 Trazodone HCl (Desyrel) 50 mg QHSP PRN PO INSOMNIA; Start 11/18/16 at 16:30; Stop 12/18/16 at 16:29 Ziprasidone (Geodon) 20 mg DAILY@18 PO Last administered on 11/20/16 17:40; Start 11/20/16 at 18:00; Stop 11/21/16 at 14:14; Status DC Ziprasidone (Geodon) 40 mg DAILY@18 PO Last administered on 11/24/16 17:43; Start 11/21/16 at 18:00; Stop 11/25/16 at 13:53; Status DC Ziprasidone (Geodon) 60 mg DAILY@18 PO Last administered on 12/03/16 17:48; Start 11/25/16 at 18:00; Stop 12/25/16 at 17:59 Ziprasidone (Geodon) 80 mg DAILY@18 PO Last administered on 12/03/16t 17:48; Start 11/18/16 at 18:00; Stop 12/18/16 at 17:59 Allergies Coded Allergies: Amoxicillin (Verified Allergy, Intermediate, Hives , 11/01/13) Sulfa Drugs (Verified Allergy, Mild, Rash, fever, vomiting, 11/01/13) Azithromycin (Verified Allergy, Unknown, 11/18/16) interacts with Leticia Hurley Dec 04, 2016 12:07
[2016-12-04] MEDS: ZIPRASIDONE 20MG CAPSULE (GEODON) PO SCH (18:15)
[2016-12-04] MEDS: ZIPRASIDONE 80 MG CAP (GEODON) PO SCH (18:15)
[2016-12-05] MEDS: **PENDING PPD ENTRY XX SCH (09:00)
--- NOTE | 2016-12-05 14:47 | IPNPDOC ---
[facility] Progress Note Progress Note DATE OF SERVICE: 12/05/16 HISTORY: Day 18 of admission. "I'm refusing all care". VITAL SIGNS: See below. NEW TEST RESULTS: na CURRENT MEDICATIONS: See below. MENTAL STATUS EXAMINATION: Patient is a 26-year old female, who is dressed in hospital attire, very long brown hair, pacing and keeping to herself. Speech: Is spontaneous. Language skills are good. Thought processes including: suspicions, paranoia Thought content: "I'm am refusing all care." Abstract reasoning, and computation : not addressed. Description of associations: not addressed. Description of abnormal or psychotic thoughts: Pt has started to refuse her vital signs. Staff is again reporting that pt is laughing and talking to herself. this has not been observed by the marine underwriter but marine underwriter has no reason to doubt the staff. Judgment: poor Insight: poor. Orientation:will not provide information Recent and remote memory: unable to assess. Attention span and concentration: poor. Fund of knowledge: unable to assess. Mood: angry Affect: calm. DIAGNOSES: 1. Bipolar I disorder, current episode mixed, severe. 2. Cluster B traits ASSESSMENT: continue treatment plan. marine underwriter has asked nursing staff to assess pt for akathesia due to increase in geodon dose. MANAGEMENT PLAN: awaiting transfer to [facility]. will continue to attempt to engage pts participation in treatment. TIME SPENT: 15 minutes. Vital Signs Vital Signs Date Time Temp Pulse Resp B/P (MAP) Pulse Ox O2 Delivery O2 Flow Rate FiO2 12/02/16 06:22 98.7 97 16 146/81 (102) Room Air Current Medications Current Medications Acetaminophen (Tylenol Tab) 650 mg Q6HP PRN PO HEADACHE or DISCOMFORT; Start at 16:30; Stop 12/18/16 at 16:29 Al Hydrox/Mg Hydrox/Simethicone (Mylanta) 30 ml Q4HP PRN PO HEARTBURN/ INDIGESTION; Start 11/18/16 at 16:30; Stop 12/18/16 at 16:29 Benztropine Mesylate (Cogentin) 1 mg DAILY PRN PO EPS; Start 11/25/16 at 16:15 ; Stop 12/25/16 at 16:14 Diphenhydramine HCl (Benadryl) 50 mg Q6HP PRN IM AGITATION; Start 11/19/16 at 11:15; Stop 12/19/16 at 11:14; Status Cancel Diphenhydramine HCl (Benadryl) 50 mg Q8HP PRN PO AGITATION; Start 11/19/16 at 11:15; Stop 12/19/16 at 11:14 Diphenhydramine HCl (Benadryl) 50 mg STAT STAT IM Last administered on 02:18; Start 11/22/16 at 01:57; Stop 11/22/16 at 01:59; Status DC Diphenhydramine HCl (Benadryl) 50 mg STAT STAT IM Last administered on 14:08; Start 11/29/16 at 13:44; Stop 11/29/16 at 13:48; Status DC Haloperidol (Haldol) 5 mg Q8HP PRN IM AGITATION; Start 11/19/16 at 11:15; Stop 12/19/16 at 11:14; Status Cancel Haloperidol (Haldol) 5 mg Q8HP PRN PO AGITATION; Start 11/19/16 at 11:15; Stop 12/19/16 at 11:14 Haloperidol (Haldol) 10 mg STAT STAT IM Last administered on 11/22/16 02:18; Start 11/22/16 at 01:57; Stop 11/22/16 at 01:59; Status DC Haloperidol (Haldol) 10 mg STAT STAT PO ; Start 11/29/16 at 13:44; Stop at 13:45; Status Cancel Home Med (Med Rec Complete!) ASDIRECTED XX ; Start 11/18/16 at 14:00; Stop 05/27 at 14:01; Status DC Lorazepam (Ativan) 1 mg STAT STAT IV Last administered on 11/29/16 14:08; Start 11/29/16 at 13:44; Stop 11/29/16 at 13:48; Status DC Lorazepam (Ativan) 2 mg Q6HP PRN IM AGITATION; Start 11/19/16 at 11:15; Stop at 11:14; Status Cancel Lorazepam (Ativan) 2 mg Q8HP PRN PO AGITATION; Start 11/19/16 at 11:15; Stop at 13:53; Status DC Lorazepam (Ativan) 2 mg Q8HP PRN PO AGITATION; Start 11/25/16 at 14:00; Stop at 11:14 Lorazepam (Ativan) 2 mg STAT STAT IM Last administered on 11/22/16 02:18; Start 11/22/16 at 01:57; Stop 11/22/16 at 01:59; Status DC Magnesium Hydroxide (Milk Of Magnesia) 30 ml DAILYPRN PRN PO CONSTIPATION; Start 11/18/16 at 16:30; Stop 12/18/16 at 16:29 Non-Formulary Medication ( See Comment Field Below ) SEE COMMENTS SECT... 1T @10 XX ; Start 11/24/16 at 10:00; Stop 11/25/16 at 09:59; Status UNV Non-Formulary Medication ( See Comment Field Below ) SEE LABEL COMMENTS DAILY XX ; Start 11/22/16 at 09:00; Stop 12/22/16 at 08:59 Trazodone HCl (Desyrel) 50 mg QHSP PRN PO INSOMNIA; Start 11/18/16 at 16:30; Stop 12/18/16 at 16:29 Ziprasidone (Geodon) 20 mg DAILY@18 PO Last administered on 11/20/16 17:40; Start 11/20/16 at 18:00; Stop 11/21/16 at 14:14; Status DC Ziprasidone (Geodon) 40 mg DAILY@18 PO Last administered on 11/24/16 17:43; Start 11/21/16 at 18:00; Stop 11/25/16 at 13:53; Status DC Ziprasidone (Geodon) 60 mg DAILY@18 PO Last administered on 12/04/16 18:15; Start 11/25/16 at 18:00; Stop 12/25/16 at 17:59 Ziprasidone (Geodon) 80 mg DAILY@18 PO Last administered on 12/04/16 18:15; Start 11/18/16 at 18:00; Stop 12/18/16 at 17:59 Allergies Coded Allergies: Amoxicillin (Verified Allergy, Intermediate, Hives , 11/01/13) Sulfa Drugs (Verified Allergy, Mild, Rash, fever, vomiting, 11/01/13) Azithromycin (Verified Allergy, Unknown, 11/18/16) interacts with Leticia Hurley Dec 05, 2016 14:47
[2016-12-05] MEDS: ZIPRASIDONE 20MG CAPSULE (GEODON) PO SCH (17:39)
[2016-12-05] MEDS: ZIPRASIDONE 80 MG CAP (GEODON) PO SCH (17:39)
[2016-12-05 18:00] VITALS: BP 141/102
[2016-12-06 07:17] VITALS: BP 132/77
[2016-12-06] MEDS: **PENDING PPD ENTRY XX SCH (09:00)
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
[2016-12-06] MEDS: ZIPRASIDONE 20MG CAPSULE (GEODON) PO SCH (17:41)
[2016-12-06] MEDS: ZIPRASIDONE 80 MG CAP (GEODON) PO SCH (17:41)
[2016-12-06 18:00] VITALS: BP 138/84
[2016-12-07 06:33] VITALS: BP 138/89
[2016-12-07] MEDS: **PENDING PPD ENTRY XX SCH (08:35)
[2016-12-07] MEDS: ZIPRASIDONE 80 MG CAP (GEODON) PO SCH (17:49)
[2016-12-07] MEDS: ZIPRASIDONE 20MG CAPSULE (GEODON) PO SCH (17:49)
[2016-12-08 07:00] VITALS: BP 153/105
[2016-12-08] MEDS: **PENDING PPD ENTRY XX SCH (08:53)
[2016-12-08] MEDS ORDERED: diphenhydrAMINE INJ 50MG/ML VIAL (J1200) As Ordered ONE (09:03)
[2016-12-08] MEDS ORDERED: HALOPERIDOL 5 MG/ML VIAL (J1630) As Ordered ONE (09:03)
[2016-12-08] MEDS ORDERED: LORazepam 2 MG/ML VIAL (J2060) As Ordered ONE (09:03)
[2016-12-08] MEDS: ZIPRASIDONE 80 MG CAP (GEODON) PO SCH (18:00)
[2016-12-08] MEDS: ZIPRASIDONE 20MG CAPSULE (GEODON) PO SCH (18:00)
[2016-12-09] MEDS: **PENDING PPD ENTRY XX SCH (08:40)
--- NOTE | 2016-12-09 15:54 | IPNPDOC ---
[facility] Progress Note Progress Note DATE OF SERVICE: 12/09/16 HISTORY: Day 22 of admission VITAL SIGNS: See below. NEW TEST RESULTS: na CURRENT MEDICATIONS: See below. MENTAL STATUS EXAMINATION: Patient is a 26-year old female, who is seclusive to her room, hollering when staff does the safety checks and once again decompensating. Speech: Is yelling Language skills are intact Thought processes including: delusions Thought content: "Get out of here you bitch". Abstract reasoning, and computation: poorDescription of associations: poor Description of abnormal or psychotic thoughts: pt unable to cooperate with exam today Judgment: poor Insight: poor Orientation: pt unable to participate in evaluation Recent and remote memory: unable to assess. Attention span and concentration: poor Fund of knowledge: poor. Mood:irritable. Affect: congruent DIAGNOSES: 1. Bipolar I disorder, most recent episode mixed. 2. Cluster B traits ASSESSMENT:Pt has refused her medications all weekend. She had some outburts over the weekend, yelling at staff, yelling when they knocked on her door for safety checks. Her mother came on the unit and she refused to see her. This may have been a trigger for her as she makes delusionary comments about how she stole her identity. Administrative Support Clerk knocked on door to try and confer with pt but she cursed and directed designer writer to leave. MANAGEMENT PLAN: continue to offer meds. continue observation, continue to encourage involvement with groups, awaiting transfer to [facility] [place]. TIME SPENT: 15 minutes. Vital Signs Vital Signs Date Time Temp Pulse Resp B/P (MAP) Pulse Ox O2 Delivery O2 Flow Rate FiO2 12/09/16 15:34 Room Air 12/08/16 07:00 98.0 103 20 153/105 (121) Current Medications Current Medications Acetaminophen (Tylenol Tab) 650 mg Q6HP PRN PO HEADACHE or DISCOMFORT; Start at 16:30; Stop 12/18/16 at 16:29 Al Hydrox/Mg Hydrox/Simethicone (Mylanta) 30 ml Q4HP PRN PO HEARTBURN/ INDIGESTION; Start 11/18/16 at 16:30; Stop 12/18/16 at 16:29 Benztropine Mesylate (Cogentin) 1 mg DAILY PRN PO EPS; Start 11/25/16 at 16:15 ; Stop 12/25/16 at 16:14 Diphenhydramine HCl (Benadryl) 50 mg Q6HP PRN IM AGITATION; Start 11/19/16 at 11:15; Stop 12/19/16 at 11:14; Status Cancel Diphenhydramine HCl (Benadryl) 50 mg Q8HP PRN PO AGITATION; Start 11/19/16 at 11:15; Stop 12/19/16 at 11:14 Diphenhydramine HCl (Benadryl) 50 mg STAT STAT IM Last administered on 02:18; Start 11/22/16 at 01:57; Stop 11/22/16 at 01:59; Status DC Diphenhydramine HCl (Benadryl) 50 mg STAT STAT IM Last administered on 14:08; Start 11/29/16 at 13:44; Stop 11/29/16 at 13:48; Status DC Haloperidol (Haldol) 5 mg Q8HP PRN IM AGITATION; Start 11/19/16 at 11:15; Stop 12/19/16 at 11:14; Status Cancel Haloperidol (Haldol) 5 mg Q8HP PRN PO AGITATION; Start 11/19/16 at 11:15; Stop 12/19/16 at 11:14 Haloperidol (Haldol) 10 mg STAT STAT IM Last administered on 11/22/16 02:18; Start 11/22/16 at 01:57; Stop 11/22/16 at 01:59; Status DC Haloperidol (Haldol) 10 mg STAT STAT PO ; Start 11/29/16 at 13:44; Stop at 13:45; Status Cancel Home Med (Med Rec Complete!) ASDIRECTED XX ; Start 11/18/16 at 14:00; Stop 05/27 at 14:01; Status DC Lorazepam (Ativan) 1 mg STAT STAT IV Last administered on 11/29/16 14:08; Start 11/29/16 at 13:44; Stop 11/29/16 at 13:48; Status DC Lorazepam (Ativan) 2 mg Q6HP PRN IM AGITATION; Start 11/19/16 at 11:15; Stop at 11:14; Status Cancel Lorazepam (Ativan) 2 mg Q8HP PRN PO AGITATION; Start 11/19/16 at 11:15; Stop at 13:53; Status DC Lorazepam (Ativan) 2 mg Q8HP PRN PO AGITATION; Start 11/25/16 at 14:00; Stop at 11:14; Status DC Lorazepam (Ativan) 2 mg STAT STAT IM Last administered on 11/22/16 02:18; Start 11/22/16 at 01:57; Stop 11/22/16 at 01:59; Status DC Magnesium Hydroxide (Milk Of Magnesia) 30 ml DAILYPRN PRN PO CONSTIPATION; Start 11/18/16 at 16:30; Stop 12/18/16 at 16:29 Non-Formulary Medication ( See Comment Field Below ) SEE COMMENTS SECT... 1T @10 XX ; Start 11/24/16 at 10:00; Stop 11/25/16 at 09:59; Status UNV Non-Formulary Medication ( See Comment Field Below ) SEE LABEL COMMENTS DAILY XX ; Start 11/22/16 at 09:00; Stop 12/22/16 at 08:59 Trazodone HCl (Desyrel) 50 mg QHSP PRN PO INSOMNIA; Start 11/18/16 at 16:30; Stop 12/18/16 at 16:29 Ziprasidone (Geodon) 20 mg DAILY@18 PO Last administered on 11/20/16 17:40; Start 11/20/16 at 18:00; Stop 11/21/16 at 14:14; Status DC Ziprasidone (Geodon) 40 mg DAILY@18 PO Last administered on 11/24/16 17:43; Start 11/21/16 at 18:00; Stop 11/25/16 at 13:53; Status DC Ziprasidone (Geodon) 60 mg DAILY@18 PO Last administered on 12/07/16 17:49; Start 11/25/16 at 18:00; Stop 12/25/16 at 17:59 Ziprasidone (Geodon) 80 mg DAILY@18 PO Last administered on 12/07/16 17:49; Start 11/18/16 at 18:00; Stop 12/18/16 at 17:59 Allergies Coded Allergies: Amoxicillin (Verified Allergy, Intermediate, Hives , 11/01/13) Sulfa Drugs (Verified Allergy, Mild, Rash, fever, vomiting, 11/01/13) Azithromycin (Verified Allergy, Unknown, 11/18/16) interacts with Leticia Hurley December 09, 2016 15:54
[2016-12-09] MEDS: ZIPRASIDONE 80 MG CAP (GEODON) PO SCH (18:15)
[2016-12-09] MEDS: ZIPRASIDONE 20MG CAPSULE (GEODON) PO SCH (18:15)
[2016-12-09] MEDS ORDERED: HALOPERIDOL 5 MG/ML VIAL (J1630) IM STA (18:58)
[2016-12-09] MEDS ORDERED: diphenhydrAMINE INJ 50MG/ML VIAL (J1200) IM STA (18:58)
[2016-12-09] MEDS ORDERED: LORazepam 2 MG/ML VIAL (J2060) IM STA (18:58)
[2016-12-09 19:25] VITALS: BP 139/82
[2016-12-09 19:35] VITALS: BP 127/78
[2016-12-09 19:50] VITALS: BP 137/83
[2016-12-09 20:05] VITALS: BP 134/80
[2016-12-09 20:20] VITALS: BP 131/78
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
[2016-12-09 21:10] VITALS: BP 134/72
[2016-12-10] MEDS: **PENDING PPD ENTRY XX SCH (09:00)
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
[2016-12-10] MEDS: ZIPRASIDONE 80 MG CAP (GEODON) PO SCH (17:49)
[2016-12-11 06:55] VITALS: BP 142/88
[2016-12-11] MEDS ORDERED: diphenhydrAMINE 25 MG CAP PO PRN (08:30)
[2016-12-11] MEDS: **PENDING PPD ENTRY XX SCH (08:38)
--- NOTE | 2016-12-11 11:42 | IPNPDOC ---
[facility] Progress Note Progress Note DATE OF SERVICE: 12/11/16 HISTORY: Day 24 of admission VITAL SIGNS: See below. NEW TEST RESULTS: PPD and Geodon level still pending as pt refuses CURRENT MEDICATIONS: See below. MENTAL STATUS EXAMINATION: Patient is a 26 year old female, who is dressed in hospital clothing, long dark hair, adequate hygiene who is being treated for Bipolar I disorder - mixed episode Speech: Is fluent Language skills are intact Thought processes including: persecution, delusions, suspicion and paranoia Thought content: "Can I go to groups today"? . Abstract reasoning, and computation: fair Description of associations: fair Description of abnormal or psychotic thoughts: denies dts or dto, denies suicidal or homicidal thoughts, denies voices or visions. Pt paces much of the day, does not engage with peers, rarely responds to staff. Sometimes observed laughing or talking to self. Judgment: poor Insight: poor. Orientation: Recent and remote memory: intact Attention span and concentration: poor Fund of knowledge: adequate/impaired Mood: euthymic. Affect: flat DIAGNOSES: 1. Bipolar I disorder, current episode mixed. 2. Cluster B traits. ASSESSMENT:Pt approached account underwriter asking to attend groups. Pt denies she will strike out at others or endanger others. Pt agrees to remain calm in group and demonstrate appropriate behavior. Will allow her to attend and will discontinue 1:1 observation now. Pt did take Geodon 80 mg last night. RN reports akathesia and benadryl order in place. Pt informed. She states she will use if she needs it but she does not feel she needs it now. Pt slept last night and is eating at most meals. MANAGEMENT PLAN: Pt is still awaitng transfer to [facility]. TOO discussed with Dr. Villeda however pt has once again resumed taking her antipsychotic. It jimenez snot appear that 1) the meds is helpful to her 1) that the dose of the medication is adequate. Was not able to get it up to 160 mg only got as high as 140 mg and pt seemed to tolerate but did not show any significant improvement on the higher dose. TOO has been discussed with another provider as well today. pt was informed that we may be taking her to court for treatment over objection. she declined to discuss this saying, "I refuse. I won't go to court and got up to leave. Lining Caser asked her to stay and discuss but she left. Will review her chart to see if she was ever offered a long acting injectable that may help her condition. TIME SPENT: 15minutes. Vital Signs Vital Signs Date Time Temp Pulse Resp B/P (MAP) Pulse Ox O2 Delivery O2 Flow Rate FiO2 12/11/16 06:55 98.1 100 142/88 (106) 12/09/16 21:10 20 Room Air 12/09/16 20:20 98 Current Medications Current Medications Acetaminophen (Tylenol Tab) 650 mg Q6HP PRN PO HEADACHE or DISCOMFORT; Start at 16:30; Stop 12/18/16 at 16:29 Al Hydrox/Mg Hydrox/Simethicone (Mylanta) 30 ml Q4HP PRN PO HEARTBURN/ INDIGESTION; Start 11/18/16 at 16:30; Stop 12/18/16 at 16:29 Benztropine Mesylate (Cogentin) 1 mg DAILY PRN PO EPS; Start 11/25/16 at 16:15 ; Stop 12/25/16 at 16:14; Status Cancel Diphenhydramine HCl (Benadryl) 25 mg Q4H PRN PO akathesia; Start 12/11/16 at 08: 30; Stop 01/10/17 at 08:29 Diphenhydramine HCl (Benadryl) 50 mg Q6HP PRN IM AGITATION; Start 11/19/16 at 11:15; Stop 12/19/16 at 11:14; Status Cancel Diphenhydramine HCl (Benadryl) 50 mg Q8HP PRN PO AGITATION; Start 11/19/16 at 11:15; Stop 12/19/16 at 11:14 Diphenhydramine HCl (Benadryl) 50 mg STAT STAT IM Last administered on t 02:18; Start 11/22/16 at 01:57; Stop 11/22/16 at 01:59; Status DC Diphenhydramine HCl (Benadryl) 50 mg STAT STAT IM Last administered on t 14:08; Start 11/29/16 at 13:44; Stop 11/29/16 at 13:48; Status DC Diphenhydramine HCl (Benadryl) 50 mg STAT STAT IM Last administered on 19:09; Start 12/09/16 at 18:58; Stop 12/09/16 at 19:01; Status DC Haloperidol (Haldol) 5 mg Q8HP PRN IM AGITATION; Start 11/19/16 at 11:15; Stop 12/19/16 at 11:14; Status Cancel Haloperidol (Haldol) 5 mg Q8HP PRN PO AGITATION; Start 11/19/16 at 11:15; Stop 12/19/16 at 11:14 Haloperidol (Haldol) 10 mg STAT STAT IM Last administered on 11/22/16 02:18; Start 11/22/16 at 01:57; Stop 11/22/16 at 01:59; Status DC Haloperidol (Haldol) 10 mg STAT STAT IM Last administered on 12/09/16 19:09; Start 12/09/16 at 18:58; Stop 12/09/16 at 19:01; Status DC Haloperidol (Haldol) 10 mg STAT STAT PO ; Start 11/29/16 at 13:44; Stop at 13:45; Status Cancel Home Med (Med Rec Complete!) ASDIRECTED XX ; Start 11/18/16 at 14:00; Stop 05/27 at 14:01; Status DC Lorazepam (Ativan) 1 mg STAT STAT IV Last administered on 11/29/16 14:08; Start 11/29/16 at 13:44; Stop 11/29/16 at 13:48; Status DC Lorazepam (Ativan) 2 mg Q6HP PRN IM AGITATION; Start 11/19/16 at 11:15; Stop at 11:14; Status Cancel Lorazepam (Ativan) 2 mg Q8HP PRN PO AGITATION; Start 11/19/16 at 11:15; Stop at 13:53; Status DC Lorazepam (Ativan) 2 mg Q8HP PRN PO AGITATION; Start 11/25/16 at 14:00; Stop at 11:14; Status DC Lorazepam (Ativan) 2 mg STAT STAT IM Last administered on 11/22/16 02:18; Start 11/22/16 at 01:57; Stop 11/22/16 at 01:59; Status DC Lorazepam (Ativan) 2 mg STAT STAT IM Last administered on 12/09/16 19:09; Start 12/09/16 at 18:58; Stop 12/09/16 at 19:01; Status DC Magnesium Hydroxide (Milk Of Magnesia) 30 ml DAILYPRN PRN PO CONSTIPATION; Start 11/18/16 at 16:30; Stop 12/18/16 at 16:29 Non-Formulary Medication ( See Comment Field Below ) SEE COMMENTS SECT... 1T @10 XX ; Start 11/24/16 at 10:00; Stop 11/25/16 at 09:59; Status UNV Non-Formulary Medication ( See Comment Field Below ) SEE LABEL COMMENTS DAILY XX ; Start 11/22/16 at 09:00; Stop 12/22/16 at 08:59 Trazodone HCl (Desyrel) 50 mg QHSP PRN PO INSOMNIA; Start 11/18/16 at 16:30; Stop 12/18/16 at 16:29 Ziprasidone (Geodon) 20 mg DAILY@18 PO Last administered on 11/20/16 17:40; Start 11/20/16 at 18:00; Stop 11/21/16 at 14:14; Status DC Ziprasidone (Geodon) 40 mg DAILY@18 PO Last administered on 11/24/16 17:43; Start 11/21/16 at 18:00; Stop 11/25/16 at 13:53; Status DC Ziprasidone (Geodon) 60 mg DAILY@18 PO Last administered on 12/07/16 17:49; Start 11/25/16 at 18:00; Stop 12/10/16 at 12:19; Status DC Ziprasidone (Geodon) 80 mg DAILY@18 PO Last administered on 12/10/16 17:49; Start 11/18/16 at 18:00; Stop 12/18/16 at 17:59 Allergies Coded Allergies: Amoxicillin (Verified Allergy, Intermediate, Hives , 11/01/13) Sulfa Drugs (Verified Allergy, Mild, Rash, fever, vomiting, 11/01/13) Azithromycin (Verified Allergy, Unknown, 11/18/16) interacts with Leticia Hurley December 11, 2016 11:42
[2016-12-11] MEDS: ZIPRASIDONE 80 MG CAP (GEODON) PO SCH (17:47)
[2016-12-12] MEDS: **PENDING PPD ENTRY XX SCH (09:00)
--- NOTE | 2016-12-12 16:09 | IPNPDOC ---
[facility] Progress Note Progress Note DATE OF SERVICE: 12/12/16 HISTORY: day 25 of admission. VITAL SIGNS: See below. NEW TEST RESULTS: na CURRENT MEDICATIONS: See below. MENTAL STATUS EXAMINATION: Patient is a 26-year old female, who is wearing hospital clothing, long dark hair, no eye contact, pacing prn. Speech: silent, refuses to speak or engage in discussion Language skills are intact Thought processes including: refuses to engage Thought content: not able to assess Abstract reasoning, and computation: unable to assess. Description of associations: refuses to talk. Description of abnormal or psychotic thoughts: refuses attempts to communicate Judgment: poor Insight: . poor Orientation: refuses to answer Recent and remote memory: unable to assess Attention span and concentration: refuses to engage Fund of knowledge: unable to assess Mood: euthymic. Affect:controlled. DIAGNOSES: 1. Bipolar I disorder, current episode mixed 2. Cluster B traits 3. h/o substance abuse 4. h/o nicotine dependence. ASSESSMENT:pt did take 80 mg of geodon last night. no episodes of violence toward others reported. pt is refusing to engage with ad copy writer but has kept her behavior under control. she is observed in the hallways and has been attending some of the therapeutic groups on the unit. She is eating at meal times. She is sleeping or appears to be during the nighttime. MANAGEMENT PLAN: TOO was started yesterday. Will order Risperidone M-Tab 2 mg qd to start and adjust as tolerated. Begin depakote 250 mg bid. Will begin Geodon taper TIME SPENT: 15 minutes. Vital Signs Vital Signs Date Time Temp Pulse Resp B/P (MAP) Pulse Ox O2 Delivery O2 Flow Rate FiO2 12/11/16 06:55 98.1 100 142/88 (106) 12/09/16 21:10 20 Room Air 12/09/16 20:20 98 Current Medications Current Medications Acetaminophen (Tylenol Tab) 650 mg Q6HP PRN PO HEADACHE or DISCOMFORT; Start at 16:30; Stop 12/18/16 at 16:29 Al Hydrox/Mg Hydrox/Simethicone (Mylanta) 30 ml Q4HP PRN PO HEARTBURN/ INDIGESTION; Start 11/18/16 at 16:30; Stop 12/18/16 at 16:29 Benztropine Mesylate (Cogentin) 1 mg DAILY PRN PO EPS; Start 11/25/16 at 16:15 ; Stop 12/25/16 at 16:14; Status Cancel Diphenhydramine HCl (Benadryl) 25 mg Q4H PRN PO akathesia; Start 12/11/16 at 08: 30; Stop 01/10/17 at 08:29 Diphenhydramine HCl (Benadryl) 50 mg Q6HP PRN IM AGITATION; Start 11/19/16 at 11:15; Stop 12/19/16 at 11:14; Status Cancel Diphenhydramine HCl (Benadryl) 50 mg Q8HP PRN PO AGITATION; Start 11/19/16 at 11:15; Stop 12/19/16 at 11:14 Diphenhydramine HCl (Benadryl) 50 mg STAT STAT IM Last administered on 02:18; Start 11/22/16 at 01:57; Stop 11/22/16 at 01:59; Status DC Diphenhydramine HCl (Benadryl) 50 mg STAT STAT IM Last administered on 14:08; Start 11/29/16 at 13:44; Stop 11/29/16 at 13:48; Status DC Diphenhydramine HCl (Benadryl) 50 mg STAT STAT IM Last administered on 19:09; Start 12/09/16 at 18:58; Stop 12/09/16 at 19:01; Status DC Haloperidol (Haldol) 5 mg Q8HP PRN IM AGITATION; Start 11/19/16 at 11:15; Stop 12/19/16 at 11:14; Status Cancel Haloperidol (Haldol) 5 mg Q8HP PRN PO AGITATION; Start 11/19/16 at 11:15; Stop 12/19/16 at 11:14 Haloperidol (Haldol) 10 mg STAT STAT IM Last administered on 11/22/16 02:18; Start 11/22/16 at 01:57; Stop 11/22/16 at 01:59; Status DC Haloperidol (Haldol) 10 mg STAT STAT IM Last administered on 12/09/16 19:09; Start 12/09/16 at 18:58; Stop 12/09/16 at 19:01; Status DC Haloperidol (Haldol) 10 mg STAT STAT PO ; Start 11/29/16 at 13:44; Stop at 13:45; Status Cancel Home Med (Med Rec Complete!) ASDIRECTED XX ; Start 11/18/16 at 14:00; Stop 05/27 at 14:01; Status DC Lorazepam (Ativan) 1 mg STAT STAT IV Last administered on 11/29/16t 14:08; Start 11/29/16 at 13:44; Stop 11/29/16 at 13:48; Status DC Lorazepam (Ativan) 2 mg Q6HP PRN IM AGITATION; Start 11/19/16 at 11:15; Stop at 11:14; Status Cancel Lorazepam (Ativan) 2 mg Q8HP PRN PO AGITATION; Start 11/19/16 at 11:15; Stop at 13:53; Status DC Lorazepam (Ativan) 2 mg Q8HP PRN PO AGITATION; Start 11/25/16 at 14:00; Stop at 11:14; Status DC Lorazepam (Ativan) 2 mg STAT STAT IM Last administered on 11/22/16 02:18; Start 11/22/16 at 01:57; Stop 11/22/16 at 01:59; Status DC Lorazepam (Ativan) 2 mg STAT STAT IM Last administered on 12/09/16 19:09; Start 12/09/16 at 18:58; Stop 12/09/16 at 19:01; Status DC Magnesium Hydroxide (Milk Of Magnesia) 30 ml DAILYPRN PRN PO CONSTIPATION; Start 11/18/16 at 16:30; Stop 12/18/16 at 16:29 Non-Formulary Medication ( See Comment Field Below ) SEE COMMENTS SECT... 1T @10 XX ; Start 11/24/16 at 10:00; Stop 11/25/16 at 09:59; Status UNV Non-Formulary Medication ( See Comment Field Below ) SEE LABEL COMMENTS DAILY XX ; Start 11/22/16 at 09:00; Stop 12/22/16 at 08:59 Trazodone HCl (Desyrel) 50 mg QHSP PRN PO INSOMNIA; Start 11/18/16 at 16:30; Stop 12/18/16 at 16:29 Ziprasidone (Geodon) 20 mg DAILY@18 PO Last administered on 11/20/16 17:40; Start 11/20/16 at 18:00; Stop 11/21/16 at 14:14; Status DC Ziprasidone (Geodon) 40 mg DAILY@18 PO Last administered on 11/24/16 17:43; Start 11/21/16 at 18:00; Stop 11/25/16 at 13:53; Status DC Ziprasidone (Geodon) 60 mg DAILY@18 PO Last administered on 12/07/16 17:49; Start 11/25/16 at 18:00; Stop 12/10/16 at 12:19; Status DC Ziprasidone (Geodon) 80 mg DAILY@18 PO Last administered on 12/11/16 17:47; Start 11/18/16 at 18:00; Stop 12/18/16 at 17:59 Allergies Coded Allergies: Amoxicillin (Verified Allergy, Intermediate, Hives , 11/01/13) Sulfa Drugs (Verified Allergy, Mild, Rash, fever, vomiting, 11/01/13) Azithromycin (Verified Allergy, Unknown, 11/18/16) interacts with Leticia Hurley December 12, 2016 16:09
[2016-12-12] MEDS: ZIPRASIDONE 20MG CAPSULE (GEODON) PO SCH (17:36)
[2016-12-12] MEDS: DIVALPROEX 250 MG TAB PO SCH (21:00)
[2016-12-12] MEDS: risperiDONE 1 MG M-TAB PO SCH (21:00)
[2016-12-13 06:34] VITALS: BP 157/94
[2016-12-13] MEDS: DIVALPROEX 250 MG TAB PO SCH ×2 (08:20→21:00)
[2016-12-13] MEDS: **PENDING PPD ENTRY XX SCH (08:20)
--- NOTE | 2016-12-13 15:04 | MHIPNPDOC ---
[facility] Progress Note Progress Note DATE OF SERVICE: 12/13/16 HISTORY: Day 26 of admission VITAL SIGNS: See below. NEW TEST RESULTS: na CURRENT MEDICATIONS: See below. MENTAL STATUS EXAMINATION: Patient is a 26-year old female, who is dressed in hospital attire with long brown hair, medium frame, poor eye contact, adequate hygiene. Speech: Is spontaneous Language skills are intact Thought processes including: appears internally preoccupied, not talking today, won't agree to an interview. Thought content: threats, called travel writer "dumb" Abstract reasoning, and computation: unable to assess Description of associations: unable to assess Description of abnormal or psychotic thoughts: won't participate in interview. Judgment: poor Insight: poor. Orientation: unable to assess, pt won't participate Recent and remote memory: unable to assess Attention span and concentration: poor Fund of knowledge: unable to assess Mood: no answer. Affect: flat DIAGNOSES: 1. bipolar I disorder, current episode mixed 2. Cluster B traits 3. h/o cannabis abuse 4. h/o nicotine dependence ASSESSMENT: pt is not cooperative with treatment plan. pt is at times a danger to others. her refusal to take the medications ordered for her put her at risk for worsening symptoms of bipolar disorder. Psychotic symptoms appear to be present but she is not forthcoming in discussing what she is thinking about. She is observed doing funny finger movements with her right hand. Is she counting? She will not answer questions or provide information. Everyday effort is made to engage her. She has minimal tolerance for interaction and cuts it off very quickly. She was pleasant on approach this a.m. When travel writer when to meet with her in the afternoon she was asleep. MANAGEMENT PLAN: continue to offer risperidone M-tab, depakote and geodon. Pt on the list for [facility]. TOO is being worked up. TIME SPENT: 15 minutes. Vital Signs Vital Signs Date Time Temp Pulse Resp B/P (MAP) Pulse Ox O2 Delivery O2 Flow Rate FiO2 12/13/16 06:34 98.0 107 20 157/94 (115) 12/09/16 21:10 Room Air 12/09/16 20:20 98 Current Medications Current Medications Acetaminophen (Tylenol Tab) 650 mg Q6HP PRN PO HEADACHE or DISCOMFORT; Start at 16:30; Stop 12/18/16 at 16:29 Al Hydrox/Mg Hydrox/Simethicone (Mylanta) 30 ml Q4HP PRN PO HEARTBURN/ INDIGESTION; Start 11/18/16 at 16:30; Stop 12/18/16 at 16:29 Benztropine Mesylate (Cogentin) 1 mg DAILY PRN PO EPS; Start 11/25/16 at 16:15 ; Stop 12/25/16 at 16:14; Status Cancel Diphenhydramine HCl (Benadryl) 25 mg Q4H PRN PO akathesia; Start 12/11/16 at 08: 30; Stop 01/10/17 at 08:29 Diphenhydramine HCl (Benadryl) 50 mg Q6HP PRN IM AGITATION; Start 11/19/16 at 11:15; Stop 12/19/16 at 11:14; Status Cancel Diphenhydramine HCl (Benadryl) 50 mg Q8HP PRN PO AGITATION; Start 11/19/16 at 11:15; Stop 12/19/16 at 11:14 Diphenhydramine HCl (Benadryl) 50 mg STAT STAT IM Last administered on 02:18; Start 11/22/16 at 01:57; Stop 11/22/16 at 01:59; Status DC Diphenhydramine HCl (Benadryl) 50 mg STAT STAT IM Last administered on 14:08; Start 11/29/16 at 13:44; Stop 11/29/16 at 13:48; Status DC Diphenhydramine HCl (Benadryl) 50 mg STAT STAT IM Last administered on 19:09; Start 12/09/16 at 18:58; Stop 12/09/16 at 19:01; Status DC Divalproex Sodium (Depakote) 250 mg BID PO ; Start 12/12/16 at 21:00; Stop at 20:59 Haloperidol (Haldol) 5 mg Q8HP PRN IM AGITATION; Start 11/19/16 at 11:15; Stop 12/19/16 at 11:14; Status Cancel Haloperidol (Haldol) 5 mg Q8HP PRN PO AGITATION; Start 11/19/16 at 11:15; Stop 12/19/16 at 11:14 Haloperidol (Haldol) 10 mg STAT STAT IM Last administered on 11/22/16 02:18; Start 11/22/16 at 01:57; Stop 11/22/16 at 01:59; Status DC Haloperidol (Haldol) 10 mg STAT STAT IM Last administered on 12/09/16 19:09; Start 12/09/16 at 18:58; Stop 12/09/16 at 19:01; Status DC Haloperidol (Haldol) 10 mg STAT STAT PO ; Start 11/29/16 at 13:44; Stop at 13:45; Status Cancel Home Med (Med Rec Complete!) ASDIRECTED XX ; Start 11/18/16 at 14:00; Stop 05/27 at 14:01; Status DC Lorazepam (Ativan) 1 mg STAT STAT IV Last administered on 11/29/16 14:08; Start 11/29/16 at 13:44; Stop 11/29/16 at 13:48; Status DC Lorazepam (Ativan) 2 mg Q6HP PRN IM AGITATION; Start 11/19/16 at 11:15; Stop at 11:14; Status Cancel Lorazepam (Ativan) 2 mg Q8HP PRN PO AGITATION; Start 11/19/16 at 11:15; Stop at 13:53; Status DC Lorazepam (Ativan) 2 mg Q8HP PRN PO AGITATION; Start 11/25/16 at 14:00; Stop at 11:14; Status DC Lorazepam (Ativan) 2 mg STAT STAT IM Last administered on 11/22/16 02:18; Start 11/22/16 at 01:57; Stop 11/22/16 at 01:59; Status DC Lorazepam (Ativan) 2 mg STAT STAT IM Last administered on 12/09/16 19:09; Start 12/09/16 at 18:58; Stop 12/09/16 at 19:01; Status DC Magnesium Hydroxide (Milk Of Magnesia) 30 ml DAILYPRN PRN PO CONSTIPATION; Start 11/18/16 at 16:30; Stop 12/18/16 at 16:29 Non-Formulary Medication ( See Comment Field Below ) SEE COMMENTS SECT... 1T @10 XX ; Start 11/24/16 at 10:00; Stop 11/25/16 at 09:59; Status UNV Non-Formulary Medication ( See Comment Field Below ) SEE LABEL COMMENTS DAILY XX ; Start 11/22/16 at 09:00; Stop 12/22/16 at 08:59 Risperidone (RisperDAL M-TAB) 2 mg QHS PO ; Start 12/12/16 at 21:00; Stop at 20:59 Trazodone HCl (Desyrel) 50 mg QHSP PRN PO INSOMNIA; Start 11/18/16 at 16:30; Stop 12/18/16 at 16:29 Ziprasidone (Geodon) 20 mg DAILY@18 PO Last administered on 11/20/16 17:40; Start 11/20/16 at 18:00; Stop 11/21/16 at 14:14; Status DC Ziprasidone (Geodon) 40 mg DAILY@18 PO Last administered on 11/24/16 17:43; Start 11/21/16 at 18:00; Stop 11/25/16 at 13:53; Status DC Ziprasidone (Geodon) 60 mg DAILY@18 PO Last administered on 12/07/16 17:49; Start 11/25/16 at 18:00; Stop 12/10/16 at 12:19; Status DC Ziprasidone (Geodon) 60 mg DAILY@18 PO Last administered on 12/12/16 17:36; Start 12/12/16 at 18:00; Stop 01/11/17 at 17:59 Ziprasidone (Geodon) 80 mg DAILY@18 PO Last administered on 12/11/16 17:47; Start 11/18/16 at 18:00; Stop 12/12/16 at 16:11; Status DC Allergies Coded Allergies: Amoxicillin (Verified Allergy, Intermediate, Hives , 11/01/13) Sulfa Drugs (Verified Allergy, Mild, Rash, fever, vomiting, 11/01/13) Azithromycin (Verified Allergy, Unknown, 11/18/16) interacts with Leticia Hurley December 13, 2016 15:04
[2016-12-13] MEDS: ZIPRASIDONE 20MG CAPSULE (GEODON) PO SCH (17:44)
[2016-12-13] MEDS: risperiDONE 1 MG M-TAB PO SCH (21:00)
[2016-12-14 06:03] VITALS: BP 133/93
[2016-12-14] MEDS: DIVALPROEX 250 MG TAB PO SCH ×2 (08:05→21:00)
[2016-12-14] MEDS: **PENDING PPD ENTRY XX SCH (08:06)
[2016-12-14] MEDS: ZIPRASIDONE 20MG CAPSULE (GEODON) PO SCH (17:58)
[2016-12-14] MEDS: risperiDONE 1 MG M-TAB PO SCH (21:00)
[2016-12-15] MEDS: **PENDING PPD ENTRY XX SCH (08:13)
[2016-12-15] MEDS: DIVALPROEX 250 MG TAB PO SCH ×2 (08:13→21:00)
[2016-12-15] MEDS: ZIPRASIDONE 20MG CAPSULE (GEODON) PO SCH (19:44)
[2016-12-15] MEDS: risperiDONE 1 MG M-TAB PO SCH (21:00)
[2016-12-16 07:00] VITALS: BP 138/98
[2016-12-16] MEDS: DIVALPROEX 250 MG TAB PO SCH ×2 (08:59→21:00)
[2016-12-16] MEDS: **PENDING PPD ENTRY XX SCH (08:59)
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
[2016-12-16] MEDS: ZIPRASIDONE 20MG CAPSULE (GEODON) PO SCH (17:34)
[2016-12-16] MEDS: risperiDONE 1 MG M-TAB PO SCH (21:00)
[2016-12-17] MEDS: **PENDING PPD ENTRY XX SCH (09:00)
[2016-12-17] MEDS: DIVALPROEX 250 MG TAB PO SCH ×2 (09:00→20:59)
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
[2016-12-17] MEDS: ZIPRASIDONE 80 MG CAP (GEODON) PO SCH (18:15)
[2016-12-17] MEDS: risperiDONE 1 MG M-TAB PO SCH (20:59)
[2016-12-18] MEDS: **PENDING PPD ENTRY XX SCH (09:00)
[2016-12-18] MEDS: DIVALPROEX 250 MG TAB PO SCH ×2 (09:00→20:20)
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
[2016-12-18] MEDS: ZIPRASIDONE 80 MG CAP (GEODON) PO SCH (18:00)
[2016-12-18] MEDS: risperiDONE 1 MG M-TAB PO SCH (20:20)
[2016-12-19] MEDS: DIVALPROEX 250 MG TAB PO SCH (09:00)
[2016-12-19] MEDS: **PENDING PPD ENTRY XX SCH (09:00)
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
[2016-12-19] MEDS ORDERED: HALOPERIDOL 5 MG/ML VIAL (J1630) IM STA (14:05)
[2016-12-19] MEDS ORDERED: LORazepam 2 MG/ML VIAL (J2060) IM STA (14:05)
[2016-12-19] MEDS ORDERED: diphenhydrAMINE INJ 50MG/ML VIAL (J1200) IM STA (14:05)
== END 2016-12-19 14:35 | DRG 885 ==
LOC: M ED 12:25 → M ED INP 14:12 → M PSY 15:28
PROVIDERS: ADMIT Psychiatry & Neurology Psychiatry; ATTEND Psychiatry & Neurology Child & Adolescent Psychiatry
DX: F31.64 Bipolar disorder, current episode mixed, severe, with psychotic features (principal); F43.10 Post-traumatic stress disorder, unspecified; Z87.891 Personal history of nicotine dependence; Z91.14 Patient's other noncompliance with medication regimen; Z88.0 Allergy status to penicillin; Z88.2 Allergy status to sulfonamides; Z88.8 Allergy status to other drugs, medicaments and biological substances; Z79.899 Other long term (current) drug therapy

== ENCOUNTER 2017-06-19 07:43 | Inpatient (IN) | payer MEDICARE, MEDICAID ==
[~2017-06-19 07:43] MED LIST changes: -ADDE10CA PO; +ADDE10CA3 PO; +GEOD40CA2 PO; +HALOPERIDOL 5 MG/ML VIAL (J1630) As Ordered ONE; -LEVA750T PO; +LEVA750T7 PO; -RISP1TAB41 PO; +RISP1TAB42 PO; +TRAZ50TA11 PO; -TRAZ50TA4 PO; +diphenhydrAMINE INJ 50MG/ML VIAL (J1200) As Ordered ONE
[2017-06-19] MEDS ORDERED: LORazepam 2 MG/ML VIAL (J2060) As Ordered ONE (07:44)
[2017-06-19] MEDS ORDERED: HALOPERIDOL 5 MG/ML VIAL (J1630) IM STA (07:47)
[2017-06-19] MEDS ORDERED: LORazepam 2 MG/ML VIAL (J2060) IM STA (07:47)
[2017-06-19] MEDS ORDERED: diphenhydrAMINE INJ 50MG/ML VIAL (J1200) IM STA (07:47)
[2017-06-19 09:01] LABS: MEAN CORPUSCULAR HEMOGLOBIN 28.5 pg (27.0-33.0); MEAN CORPUSCULAR HGB CONC 33.8 g/dl (32.0-36.5); MEAN CORPUSCULAR VOLUME 84.3 fl (80.0-96.0); PLATELET COUNT, AUTOMATED 359 10^3/uL (150-450); WHITE BLOOD COUNT 16.2 10^3/uL (4.0-10.0)
[2017-06-19 09:28] LABS: CONTROL LINE HCG INT CTR LINE PRESENT
[2017-06-19 09:45] LABS: ALBUMIN 4.1 GM/DL (3.2-5.2); ALBUMIN/GLOBULIN RATIO 1.46 (1.00-1.93); ALKALINE PHOSPHATASE 76 U/L (45-117); ALT/SGPT 21 U/L (12-78); ANION GAP 19 MEQ/L (8-16); AST/SGOT 21 U/L (7-37); BILIRUBIN,DIRECT 0.2 MG/DL (0.0-0.2); BILIRUBIN,TOTAL 0.6 MG/DL (0.2-1.0); BLOOD UREA NITROGEN 8 MG/DL (7-18); CALCIUM LEVEL 8.8 MG/DL (8.5-10.1); CARBON DIOXIDE LEVEL 17 MEQ/L (21-32); CHLORIDE LEVEL 106 MEQ/L (98-107); CREATININE FOR GFR 1.04 MG/DL (0.55-1.02); GLOMERULAR FILTRATION RATE > 60.0 (>60); GLUCOSE, FASTING 100 MG/DL (70-105); POTASSIUM SERUM 3.5 MEQ/L (3.5-5.1); SODIUM LEVEL 142 MEQ/L (136-145); TOTAL PROTEIN 6.9 GM/DL (6.4-8.2)
[2017-06-19] MEDS ORDERED: NS 1,000 ML IV ONE ×3 (10:00→11:45)
[2017-06-19] MEDS ORDERED: CLON0.5T (11:09)
[2017-06-19] MEDS ORDERED: HALO10AM (11:09)
[2017-06-19] MEDS ORDERED: NYST50SS (11:09)
[2017-06-19] MEDS ORDERED: BENZ-52 PO (11:09)
[2017-06-19] MEDS ORDERED: VITA400T15 PO (11:09)
[2017-06-19 13:13] LABS: ANION GAP 10 MEQ/L (8-16); BLOOD UREA NITROGEN 7 MG/DL (7-18); CARBON DIOXIDE LEVEL 22 MEQ/L (21-32); CHLORIDE LEVEL 112 MEQ/L (98-107); GLOMERULAR FILTRATION RATE > 60.0 (>60); GLUCOSE, FASTING 70 MG/DL (70-105); SODIUM LEVEL 144 MEQ/L (136-145)
[2017-06-19 13:18] LABS: METHADONE URINE NEGATIVE (NEGATIVE)
[2017-06-19] MEDS ORDERED: MOM 30ML SUSPENSION UDC PO PRN (16:45)
[2017-06-19] MEDS ORDERED: traZODone 50 MG TAB PO PRN (16:45)
[2017-06-19] MEDS ORDERED: MAALOX 30 ML SUSP *UDC PO PRN (16:45)
[2017-06-19] MEDS ORDERED: HALOPERIDOL 5 MG TAB PO PRN (16:45)
[2017-06-19] MEDS ORDERED: LORazepam 2 MG TAB PO PRN (17:00)
[2017-06-19] MEDS ORDERED: diphenhydrAMINE 50 MG CAP PO PRN (17:00)
[2017-06-19 18:44] VITALS: BP 136/92
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
[2017-06-20] MEDS: BENZTROPINE 1 MG TAB PO SCH ×2 (09:00→21:45)
[2017-06-20] MEDS: NYSTATIN 500,000 U/5 ML SUSP UDC SS SCH ×4 (09:00→21:46)
[2017-06-20] MEDS: DIVALPROEX 500MG *ER* TAB PO SCH ×2 (09:00→21:00)
[2017-06-20] MEDS: clonazePAM 0.5 MG TAB PO SCH ×2 (09:00→21:45)
[2017-06-20] MEDS ORDERED: LORazepam 2 MG/ML VIAL (J2060) IM STA (11:54)
[2017-06-20] MEDS ORDERED: OLANZapine INTRAMUSCULAR 10 MG VIAL (S0166) IM STA (11:54)
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
[2017-06-20 12:45] VITALS: BP 136/87
[2017-06-20 13:00] VITALS: BP 136/87
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
[2017-06-21] MEDS: DIVALPROEX 500MG *ER* TAB PO SCH ×2 (08:19→21:00)
[2017-06-21] MEDS ORDERED: OLANZapine INTRAMUSCULAR 10 MG VIAL (S0166) IM STA (08:25)
[2017-06-21] MEDS ORDERED: LORazepam 1 MG TAB PO STA (08:25)
[2017-06-21] MEDS ORDERED: LORazepam 2 MG/ML VIAL (J2060) IM STA (08:28)
[2017-06-21] MEDS: NYSTATIN 500,000 U/5 ML SUSP UDC SS SCH ×4 (09:25→21:00)
[2017-06-21] MEDS: clonazePAM 0.5 MG TAB PO SCH ×2 (09:27→21:23)
[2017-06-21] MEDS: BENZTROPINE 1 MG TAB PO SCH ×2 (09:28→21:23)
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
[2017-06-22] MEDS: BENZTROPINE 1 MG TAB PO SCH ×2 (08:52→20:36)
[2017-06-22] MEDS: clonazePAM 0.5 MG TAB PO SCH ×2 (08:53→20:36)
[2017-06-22] MEDS: NYSTATIN 500,000 U/5 ML SUSP UDC SS SCH ×4 (08:56→20:37)
[2017-06-22] MEDS: DIVALPROEX 500MG *ER* TAB PO SCH ×2 (08:56→20:37)
[2017-06-22] MEDS ORDERED: OLANZapine INTRAMUSCULAR 10 MG VIAL (S0166) IM ONE ×2 (10:15)
[2017-06-22] MEDS ORDERED: ZIPRASIDONE 20 MG/ML VIAL *GEODON* (J3486) IM ONE (10:15)
[2017-06-22] MEDS ORDERED: LORazepam 2 MG/ML VIAL (J2060) IM ONE ×2 (10:15)
[2017-06-22 18:00] VITALS: BP 148/97
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
[2017-06-23] MEDS: DIVALPROEX 500MG *ER* TAB PO SCH ×2 (09:00→21:00)
[2017-06-23] MEDS: NYSTATIN 500,000 U/5 ML SUSP UDC SS SCH ×4 (09:00→21:00)
[2017-06-23] MEDS: BENZTROPINE 1 MG TAB PO SCH ×2 (10:00→22:49)
[2017-06-23] MEDS: clonazePAM 0.5 MG TAB PO SCH ×2 (10:00→22:50)
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
[2017-06-23] MEDS: LORazepam 1 MG TAB PO PRN ×2 (16:37→22:48)
[2017-06-23] MEDS ORDERED: LORazepam 2 MG/ML VIAL (J2060) IM STA (16:57)
[2017-06-23] MEDS ORDERED: OLANZapine INTRAMUSCULAR 10 MG VIAL (S0166) IM ONE (17:00)
[2017-06-23] MEDS ORDERED: OLANZapine INTRAMUSCULAR 10 MG VIAL (S0166) As Ordered ONE (17:00)
[2017-06-23 17:15] VITALS: BP 154/89
[2017-06-23 17:30] VITALS: BP 180/116
[2017-06-23 17:45] VITALS: BP 154/89
[2017-06-23 18:00] VITALS: BP_SYST 140; BP_SYST 159; BP_DIAS 105; BP_DIAS 86
[2017-06-23 18:15] VITALS: BP 137/99
[2017-06-23] MEDS: LITHIUM CARBONATE 300 MG CAP PO SCH (21:00)
[2017-06-23] MEDS: OLANZapine 5 MG TAB PO PRN ×2 (22:49→22:51)
[2017-06-24 06:48] VITALS: BP 121/66
[2017-06-24] MEDS: **PENDING PPD ENTRY XX SCH (09:00)
[2017-06-24] MEDS: LITHIUM CARBONATE 300 MG CAP PO SCH ×2 (09:00→21:00)
[2017-06-24] MEDS: DIVALPROEX 500MG *ER* TAB PO SCH ×2 (09:00→21:00)
[2017-06-24] MEDS: clonazePAM 0.5 MG TAB PO SCH ×2 (09:00→21:00)
[2017-06-24] MEDS: NYSTATIN 500,000 U/5 ML SUSP UDC SS SCH ×4 (09:00→21:00)
[2017-06-24] MEDS: BENZTROPINE 1 MG TAB PO SCH ×2 (09:13→21:00)
[2017-06-24] MEDS ORDERED: MUPIROCIN 2% OINT 22 GM TUBE TOP PRN (10:00)
[2017-06-24] MEDS ORDERED: OLANZapine INTRAMUSCULAR 10 MG VIAL (S0166) IM STA (10:56)
[2017-06-24] MEDS ORDERED: LORazepam 2 MG/ML VIAL (J2060) IM STA ×2 (10:56→19:54)
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
[2017-06-24] MEDS ORDERED: HALOPERIDOL 5 MG/ML VIAL (J1630) IM STA (19:54)
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
[2017-06-24 21:30] VITALS: BP 143/91
[2017-06-25] MEDS: DIVALPROEX 500MG *ER* TAB PO SCH ×2 (09:00→21:00)
[2017-06-25] MEDS: BENZTROPINE 1 MG TAB PO SCH ×2 (09:00→21:00)
[2017-06-25] MEDS: LITHIUM CARBONATE 300 MG CAP PO SCH ×2 (09:00→21:00)
[2017-06-25] MEDS: clonazePAM 0.5 MG TAB PO SCH ×2 (09:00→21:00)
[2017-06-25] MEDS: **PENDING PPD ENTRY XX SCH (09:00)
[2017-06-25] MEDS: NYSTATIN 500,000 U/5 ML SUSP UDC SS SCH ×4 (09:00→21:00)
[2017-06-25] MEDS ORDERED: LORazepam 2 MG/ML VIAL (J2060) IM STA (09:29)
[2017-06-25] MEDS ORDERED: OLANZapine INTRAMUSCULAR 10 MG VIAL (S0166) IM STA (09:29)
[2017-06-25] MEDS ORDERED: TUBERCULIN PPD 5 UNITS/0.1 ML ID ONE (10:00)
[2017-06-25 12:09] VITALS: BP 143/91
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
[2017-06-26] MEDS ORDERED: ZIPRASIDONE 20 MG/ML VIAL *GEODON* (J3486) IM STA (06:39)
[2017-06-26] MEDS ORDERED: diphenhydrAMINE INJ 50MG/ML VIAL (J1200) IM STA (07:38)
[2017-06-26] MEDS: NYSTATIN 500,000 U/5 ML SUSP UDC SS SCH ×4 (09:00→21:00)
[2017-06-26] MEDS: BENZTROPINE 1 MG TAB PO SCH ×2 (09:00→21:00)
[2017-06-26] MEDS: DIVALPROEX 500MG *ER* TAB PO SCH ×2 (09:00→21:00)
[2017-06-26] MEDS: **PENDING PPD ENTRY XX SCH (09:00)
[2017-06-26] MEDS: LITHIUM CARBONATE 300 MG CAP PO SCH ×2 (09:00→21:00)
[2017-06-26] MEDS: clonazePAM 0.5 MG TAB PO SCH ×2 (09:00→21:00)
[2017-06-26 09:15] VITALS: BP 155/113
[2017-06-26] MEDS ORDERED: PPD DOCUMENTATION ENTRY MISC XX SCH (10:00)
[2017-06-26] MEDS: LORazepam 1 MG TAB PO PRN (14:29)
[2017-06-26 18:00] VITALS: BP 90/54
[2017-06-27] MEDS: LORazepam 1 MG TAB PO PRN (06:49)
[2017-06-27] MEDS: DIVALPROEX 500MG *ER* TAB PO SCH ×2 (09:00→21:00)
[2017-06-27] MEDS: clonazePAM 0.5 MG TAB PO SCH ×2 (09:00→21:00)
[2017-06-27] MEDS: LITHIUM CARBONATE 300 MG CAP PO SCH ×2 (09:00→21:00)
[2017-06-27] MEDS: **PENDING PPD ENTRY XX SCH (09:00)
[2017-06-27] MEDS: NYSTATIN 500,000 U/5 ML SUSP UDC SS SCH ×4 (09:00→21:00)
[2017-06-27] MEDS: BENZTROPINE 1 MG TAB PO SCH ×2 (09:00→21:00)
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
--- NOTE | 2017-06-27 16:00 | IPN ---
DATE: 06/27/2017 HISTORY: A 27-year-old female with history of biopolar disorder, admitted with a full-blown manic episode. The patient was exhibiting dangerous behavior on the highway. She was [place] walking [place] [address]foot and in her pajamas. She was delusional, paranoid, angry and uncooperative. MEDICATIONS: - Haldol decanoate 200 mg intramuscular (IM) every four weeks - Cogentin 1 mg by mouth twice a day - Klonopin 0.5 mg by mouth twice a day - Depakote ER 500 mg by mouth twice a day SUBJECTIVE: "I cannot take Zyprexa." OBJECTIVE: The patient continues manic, irritable and impulsive. At times is aggressive. Needs frequent redirection. She is in a one-to-one because of aggressive behavior. The patient has very little insight. Continues delusional and grandiose with pressured speech. MENTAL STATUS EXAMINATION: The patient is partially cooperative, irritable, at times angry. Has poor eye contact. Speech is pressured. Mood is manic. Affect is expansive. Continues grandiose and delusional. No evidence of auditory or visual hallucinations. Memory, attention and concentration are impaired. Insight and judgment are poor. ASSESSMENT: Bipolar disorder, manic episode. PLAN: 1. Continue Haldol decanoate 200 mg IM every four weeks. 2. Continue Cogentin 1 mg by mouth twice a day. 3. Continue Klonopin 0.5 mg by mouth twice a day. 4. Continue Depakote ER twice a day.
[2017-06-28] MEDS: LORazepam 1 MG TAB PO PRN ×2 (04:40→21:14)
[2017-06-28] MEDS: LITHIUM CARBONATE 300 MG CAP PO SCH ×2 (09:00→21:00)
[2017-06-28] MEDS: NYSTATIN 500,000 U/5 ML SUSP UDC SS SCH ×4 (09:00→21:00)
[2017-06-28] MEDS: DIVALPROEX 500MG *ER* TAB PO SCH ×2 (09:00→21:00)
[2017-06-28] MEDS: **PENDING PPD ENTRY XX SCH (09:00)
[2017-06-28] MEDS: clonazePAM 0.5 MG TAB PO SCH ×2 (09:00→21:00)
[2017-06-28] MEDS: BENZTROPINE 1 MG TAB PO SCH ×2 (09:00→21:13)
[2017-06-28] MEDS: OLANZapine 5 MG TAB PO PRN (21:14)
[2017-06-29] MEDS: DIVALPROEX 500MG *ER* TAB PO SCH ×2 (08:56→21:00)
[2017-06-29] MEDS: NYSTATIN 500,000 U/5 ML SUSP UDC SS SCH ×4 (08:56→21:00)
[2017-06-29] MEDS: BENZTROPINE 1 MG TAB PO SCH ×3 (08:56→22:36)
[2017-06-29] MEDS: LITHIUM CARBONATE 300 MG CAP PO SCH ×2 (08:56→21:00)
[2017-06-29] MEDS: clonazePAM 0.5 MG TAB PO SCH ×4 (08:56→21:00)
[2017-06-29] MEDS: **PENDING PPD ENTRY XX SCH (08:57)
[2017-06-29] MEDS: LORazepam 1 MG TAB PO PRN (09:28)
[2017-06-29] MEDS ORDERED: LORazepam 2 MG/ML VIAL (J2060) IM STA ×2 (16:29→23:18)
[2017-06-29] MEDS ORDERED: HALOPERIDOL 5 MG/ML VIAL (J1630) IM STA (16:29)
[2017-06-29] MEDS ORDERED: diphenhydrAMINE INJ 50MG/ML VIAL (J1200) IM STA ×2 (16:29→23:18)
--- NOTE | 2017-06-29 16:36 | MHIR ---
General Date: Jun 29, 2017 Time Initiated: 04:30 Restraint Documentation Order/Evaluation Face to Face: Yes. Physician Assessment: Patient was very agitated and threatening Date/Time of order initiated: 16:30 Reason for restraint: Patient poses imminent danger of harming others or self harm by: Aggressive 9verbally), agitated, pacing down the hallways, threatening De-escalation interventions attempted before use of restraints: Talked to her to calm her down but she requested meedications because she needed to calm down. Type of restraint used: Chemical Length of time ordered in restraint: It starts acting after 20 minutes approximately. patient will be monitored after administration When to discontinue restraint: When patient is not longer a danger to self or others. Post evaluation of restraint due for the next 6-8 hours LOBITO AGUERO MD Jun 29, 2017 16:36
[2017-06-29] MEDS: ACETAMINOPHEN TAB 650MG DOSE (2X325MG) PO PRN (22:39)
[2017-06-30] MEDS: **PENDING PPD ENTRY XX SCH (09:00)
[2017-06-30] MEDS: NYSTATIN 500,000 U/5 ML SUSP UDC SS SCH ×4 (09:00→21:00)
[2017-06-30] MEDS: LITHIUM CARBONATE 300 MG CAP PO SCH (09:00)
[2017-06-30] MEDS: BENZTROPINE 1 MG TAB PO SCH ×2 (09:00→21:00)
[2017-06-30] MEDS: DIVALPROEX 500MG *ER* TAB PO SCH (09:00)
[2017-06-30] MEDS: clonazePAM 0.5 MG TAB PO SCH ×2 (09:00→21:00)
[2017-06-30] MEDS: ACETAMINOPHEN TAB 650MG DOSE (2X325MG) PO PRN (10:30)
[2017-06-30] MEDS ORDERED: diphenhydrAMINE INJ 50MG/ML VIAL (J1200) IM ONE (13:00)
[2017-06-30] MEDS ORDERED: ZIPRASIDONE 20 MG/ML VIAL *GEODON* (J3486) IM ONE (13:00)
--- NOTE | 2017-06-30 17:25 | MHIPN ---
DATE: 06/30/2017 HISTORY: A 27-year-old female with a history of bipolar disorder, admitted with a full blown manic episode. The patient was exhibiting dangerous behavior on the highway. She was [place] walking [place] [address]foot and in her pajamas. She was delusional, paranoid, angry and uncooperative. MEDICATIONS: - Haldol decanoate 200 mg intramuscularly (IM) every 4 weeks - Cogentin 1 mg by mouth twice a day - Klonopin 0.5 mg by mouth twice a day - Depakote ER 500 mg by mouth twice a day SUBJECTIVE: "I only can take the medications that Dr. Miles prescribed." OBJECTIVE: The patient continues manic, impulsive, irritable and in need of one-to-one observation and in need of frequent redirection. The patient is delusional and grandiose, poor insight. The patient had to be medicated early this morning because of agitation. The patient received Geodon 20 mg IM plus Benadryl 100 mg IM. The patient was very agitated, threatening other patients and staff and yelling in the hallway. The patient could not be redirected and had to be medicated, as stated above. MENTAL STATUS EXAMINATION: The patient is partially cooperative, irritable, angry at times, has poor eye contact, unable to follow formal one-to-one or mental status. Speech is pressured. Mood is manic. Affect is expansive. Continues delusional and grandiose. There is no evidence of auditory or visual hallucinations. Memory, attention and concentration are poor. Insight and judgment are poor. ASSESSMENT: Bipolar disorder, manic episode. PLAN: Continue Haldol decanoate 200 mg IM every 4 weeks, Cogentin 1 mg by mouth twice a day, Klonopin 0.5 mg by mouth twice a day.
[2017-06-30] MEDS ORDERED: LORazepam 2 MG/ML VIAL (J2060) IM STA (20:48)
[2017-06-30] MEDS ORDERED: HALOPERIDOL 5 MG/ML VIAL (J1630) IM STA (20:48)
[2017-06-30] MEDS ORDERED: diphenhydrAMINE INJ 50MG/ML VIAL (J1200) IM STA (20:48)
[2017-07-01 06:41] VITALS: BP 110/59
[2017-07-01] MEDS: NYSTATIN 500,000 U/5 ML SUSP UDC SS SCH ×4 (09:00→21:00)
[2017-07-01] MEDS: clonazePAM 0.5 MG TAB PO SCH ×2 (09:00→21:00)
[2017-07-01] MEDS: **PENDING PPD ENTRY XX SCH (09:00)
[2017-07-01] MEDS: BENZTROPINE 1 MG TAB PO SCH ×2 (09:00→21:00)
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
[2017-07-01] MEDS ORDERED: HALOPERIDOL 5 MG/ML VIAL (J1630) IM STA (23:34)
[2017-07-01] MEDS ORDERED: diphenhydrAMINE INJ 50MG/ML VIAL (J1200) IM STA (23:34)
[2017-07-01] MEDS ORDERED: LORazepam 2 MG/ML VIAL (J2060) IM STA (23:34)
[2017-07-02] MEDS: clonazePAM 0.5 MG TAB PO SCH ×2 (09:00→21:00)
[2017-07-02] MEDS: **PENDING PPD ENTRY XX SCH (09:00)
[2017-07-02] MEDS: BENZTROPINE 1 MG TAB PO SCH ×2 (09:00→21:00)
[2017-07-02] MEDS: NYSTATIN 500,000 U/5 ML SUSP UDC SS SCH ×4 (09:00→21:00)
[2017-07-02] MEDS ORDERED: HALOPERIDOL DECANOATE 100 MG/ML VIAL (J1631) IM ONE (09:00)
--- NOTE | 2017-07-02 16:29 | MHIPN ---
DATE: 07/02/2017 HISTORY: A 27-year-old female with a history of bipolar disorder, admitted with a full blown manic episode. The patient was exhibiting dangerous behavior on the highway. She was found walking on [address]foot and in her pajamas. She was delusional, paranoid, angry and uncooperative. MEDICATIONS: - Haldol decanoate 200 mg intramuscularly (IM) every four weeks - Cogentin 1 mg by mouth twice a day - Klonopin 0.5 mg by mouth twice a day SUBJECTIVE: "I need to go to [place]." OBJECTIVE: The patient continues manic, impulsive, in need of one-to-one redirection, at times agitated, angry, irritable, pressured speech, flight of ideas, paranoid delusions, at times threatens other patients and staff. MENTAL STATUS EXAMINATION: The patient is not able to cooperative with formal mental status. The patient continues irritable, angry, with poor eye contact, flight of ideas, very poor judgment and insight. She is manic, expansive, delusional and grandiose. ASSESSMENT: Bipolar disorder, manic episode. PLAN: 1. Continue Haldol decanoate 200 mg intramuscular (IM) every four weeks. 2. Continue Cogentin 1 mg by mouth twice a day. 3. Continue Klonopin 0.5 mg by mouth twice a day.
[2017-07-03] MEDS: BENZTROPINE 1 MG TAB PO SCH ×2 (09:00→20:58)
[2017-07-03] MEDS: NYSTATIN 500,000 U/5 ML SUSP UDC SS SCH ×4 (09:00→20:59)
[2017-07-03] MEDS: clonazePAM 0.5 MG TAB PO SCH ×2 (09:00→20:58)
[2017-07-03] MEDS: **PENDING PPD ENTRY XX SCH (09:00)
[2017-07-03] MEDS ORDERED: HALOPERIDOL 5 MG/ML VIAL (J1630) IM STA (12:20)
[2017-07-03] MEDS ORDERED: diphenhydrAMINE INJ 50MG/ML VIAL (J1200) IM STA (12:20)
[2017-07-03] MEDS ORDERED: LORazepam 2 MG/ML VIAL (J2060) IM STA (12:20)
[2017-07-04] MEDS: BENZTROPINE 1 MG TAB PO SCH ×2 (08:26→19:00)
[2017-07-04] MEDS: clonazePAM 0.5 MG TAB PO SCH ×2 (08:26→21:00)
[2017-07-04] MEDS: **PENDING PPD ENTRY XX SCH (08:27)
[2017-07-04] MEDS: NYSTATIN 500,000 U/5 ML SUSP UDC SS SCH ×4 (08:27→21:00)
--- NOTE | 2017-07-04 12:00 | MHIPN ---
DATE: 07/03/2017 HISTORY: 27-year-old female with a history of bipolar disorder admitted with a full blown manic episode. The patient was exhibiting dangerous behavior on the highway. She was found walking on [address] barefoot and in her pajamas. She was delusional, paranoid, angry and uncooperative. MEDICATIONS: - Haldol decanoate 200 mg intramuscularly every 4 weeks - Cogentin 1 mg by mouth twice a day - Klonopin 0.5 mg by mouth twice a day SUBJECTIVE: "Hey dude, how are you doing?" OBJECTIVE: The patient continues manic, impulsive, in need of one-to-one, angry, irritable at times with pressured speech, flight of ideas, and paranoid delusions. The patient was very agitated and had to be medicated in the afternoon. The patient tolerated it well the medication and fell asleep shortly after. MENTAL STATUS EXAMINATION: The patient is not able to cooperate with formal mental status. Continues irritable, angry, manic with very poor judgment and insight. The patient continues to be expansive, delusional, and grandiose. ASSESSMENT: Bipolar disorder, manic episode. PLAN: 1. Continue Haldol decanoate 200 mg intramuscularly every 4 weeks. 2. Continue Cogentin 1 mg by mouth twice a day. 3. Continue Klonopin 0.5 mg by mouth twice a day.
[2017-07-04] MEDS ORDERED: HALOPERIDOL DECANOATE 100 MG/ML VIAL (J1631) IM SCH (14:00)
--- NOTE | 2017-07-05 04:10 | MHIPN ---
DATE OF SERVICE: 07/04/2017 HISTORY: 27-year-old female with a history of bipolar disorder admitted with a full blown manic episode. The patient was exhibiting dangerous behavior on the highway. Patient was barefoot and in her pajamas. She was delusional, paranoid, angry, and very uncooperative. MEDICATIONS: - Haldol decanoate 200 mg intramuscularly every 4 weeks - Cogentin 1 mg by mouth twice a day - Klonopin 0.5 mg by mouth twice a day SUBJECTIVE: "I want to go to [place]." OBJECTIVE: Patient continues displaying manic behavior, impulsive, needs frequent redirection and one-to-one, at times becomes angry and irritable, at times is agitated and needs to have medication for this agitation. Patient appears to tolerate the medication well. MENTAL STATUS EXAMINATION: Patient is mostly non-cooperative with the one-to-one. She is manic with pressured speech, irritable and impulsive, very poor judgment and insight. Patient continues paranoid, delusional, and grandiose. ASSESSMENT: Bipolar disorder, manic episode. PLAN: 1. Continue Haldol decanoate 200 mg intramuscularly every 4 weeks. 2. Continue Cogentin 1 mg by mouth twice a day. 3. Continue Klonopin 0.5 mg by mouth twice a day.
[2017-07-05] MEDS: clonazePAM 0.5 MG TAB PO SCH ×2 (08:30→21:00)
[2017-07-05] MEDS: NYSTATIN 500,000 U/5 ML SUSP UDC SS SCH ×4 (08:30→21:00)
[2017-07-05] MEDS: BENZTROPINE 1 MG TAB PO SCH ×2 (08:30→17:22)
[2017-07-05] MEDS: **PENDING PPD ENTRY XX SCH (08:30)
[2017-07-05] MEDS: ACETAMINOPHEN TAB 650MG DOSE (2X325MG) PO PRN (10:45)
[2017-07-06] MEDS: BENZTROPINE 1 MG TAB PO SCH ×2 (08:58→20:09)
[2017-07-06] MEDS: clonazePAM 0.5 MG TAB PO SCH ×2 (08:58→20:09)
[2017-07-06] MEDS: NYSTATIN 500,000 U/5 ML SUSP UDC SS SCH ×4 (08:58→20:09)
[2017-07-06] MEDS: **PENDING PPD ENTRY XX SCH (08:59)
[2017-07-07] MEDS: BENZTROPINE 1 MG TAB PO SCH ×2 (08:59→20:11)
[2017-07-07] MEDS: NYSTATIN 500,000 U/5 ML SUSP UDC SS SCH ×2 (08:59→13:00)
[2017-07-07] MEDS: clonazePAM 0.5 MG TAB PO SCH (08:59)
[2017-07-07] MEDS: **PENDING PPD ENTRY XX SCH (09:00)
--- NOTE | 2017-07-07 15:43 | MHIPN ---
DATE: 07/07/2017 HISTORY: A 27-year-old female with a history of bipolar disorder admitted with a full blown manic episode. The patient was exhibiting dangerous behavior on the highway. The patient was barefoot and in her pajamas. She was delusional, paranoid, angry, and uncooperative. MEDICATIONS: - Haldol decanoate 200 mg intramuscularly (IM) every four weeks - Cogentin 1 mg by mouth twice a day - Klonopin 0.5 mg by mouth twice a day SUBJECTIVE: "I had a seizure yesterday." OBJECTIVE: The patient has been in better behavior control for the last 48 hours. The patient continues displaying hypomanic behavior. However, she is less impulsive, although she is still delusional and paranoid. No side effects from the medication. MENTAL STATUS EXAMINATION: The patient is slightly more cooperative, although she is unable to hold one-to-one interaction. The patient has pressured speech and flight of ideas. She is delusional and paranoid, somewhat grandiose. Insight and judgment are very poor. ASSESSMENT: Bipolar disorder, manic episode. PLAN: 1. Continue Haldol decanoate 200 mg intramuscularly (IM) every four weeks. 2. Continue Cogentin 1 mg by mouth twice a day. 3. Continue Klonopin 0.5 mg by mouth twice a day.
[2017-07-08] MEDS: BENZTROPINE 1 MG TAB PO SCH ×3 (08:57→20:57)
[2017-07-08] MEDS: **PENDING PPD ENTRY XX SCH (08:58)
--- NOTE | 2017-07-08 16:33 | MHIPN ---
DATE: 07/08/2017 HISTORY: 27-year-old female with history of bipolar disorder admitted with a full blown manic episode. Patient was exhibiting dangerous behavior on the highway. Patient was barefoot and in her pajamas. She was delusional, paranoid, angry and uncooperative. MEDICATIONS: - Haldol decanoate 200 mg intramuscularly (IM) every four weeks - Cogentin 1 mg by mouth twice a day SUBJECTIVE: "I do not have bipolar." OBJECTIVE: The patient is improving as far as her behavior. Not as agitated. She has bene off the 1 to 1 close observation for 24-hours. She continues delusional, paranoid and impulsive but can be redirected better. MENTAL STATUS EXAMINATION: The patient is slightly more cooperative. Patient continues with flight of ideas, impulsive, pressure speech, paranoid, grandiose. Insight and judgment are very poor. ASSESSMENT: Bipolar disorder, manic episode. PLAN: 1. Continue Haldol decanoate 200 mg intramuscularly (IM) every four weeks. 2. Continue Cogentin 1 mg by mouth twice a day. 3. Continue medication management, individual, and group therapy.
[2017-07-08 18:00] VITALS: BP 133/83
[2017-07-09] MEDS: BENZTROPINE 1 MG TAB PO SCH ×2 (08:55→21:00)
[2017-07-09] MEDS: **PENDING PPD ENTRY XX SCH (08:55)
--- NOTE | 2017-07-09 16:12 | MHIPN ---
DATE: 07/09/2017 HISTORY: A 27-year-old female with history of bipolar disorder admitted with a full-blown manic episode. Patient was exhibiting dangerous behavior on the highway. Patient was barefoot and in her pajamas. She was delusional, paranoid, angry and uncooperative. MEDICATIONS: - Haldol Decanoate 200 mg intramuscularly (IM) every four weeks - Cogentin 1 mg by mouth twice a day SUBJECTIVE: "I need to go to [facility]." OBJECTIVE: Patient is improving slowly. Patient is no longer agitated, although she has very low insight about her illness. Continues with flight of ideas and pressured speech. Patient is compliant with the medication. MENTAL STATUS EXAMINATION: Patient is cooperative today during the interview. Patient continues with flight of ideas, is less impulsive. Continues with pressured speech. Continues delusional and paranoid. Insight and judgment continues to be poor. ASSESSMENT: Bipolar disorder, manic episode. PLAN: 1. Continue Haldol Decanoate 200 mg IM every four weeks. 2. Continue Cogentin 1 mg by mouth twice a day. 3. Continue medication management, individual and group therapy.
[2017-07-10 06:51] VITALS: BP 132/90
[2017-07-10] MEDS: BENZTROPINE 1 MG TAB PO SCH ×2 (09:00→21:00)
[2017-07-10] MEDS: **PENDING PPD ENTRY XX SCH (09:00)
--- NOTE | 2017-07-10 16:15 | MHIPN ---
DATE: 07/10/2017 HISTORY: 27-year-old female with a history of bipolar disorder, admitted to our unit with a full blown manic episode. The patient was [place] dangerous behavior on the highway. The patient was barefoot and in her pajamas. She was delusional, paranoid, angry and uncooperative. MEDICATIONS: - Haldol decanoate 200 mg intramuscularly every 4 weeks - Cogentin 1 mg by mouth twice a day SUBJECTIVE: "I am from [facility]." OBJECTIVE: Although the patient continues delusional and paranoid and has flight of ideas, the patient's manic behavior is significantly improved. The patient is more redirectable. She is talkative with pressured speech. Continues with low insight. She is compliant with the medications. MENTAL STATUS EXAMINATION: The patient is dressed in [facility]. The patient is partially cooperative. The patient continues having flight of ideas and being talkative, but she is less impulsive. Continues having pressured speech. Continues delusional and paranoid. Insight and judgment continues to be poor. ASSESSMENT: 1. Bipolar disorder, manic episode. PLAN: 1. Continue Haldol decanoate 200 mg intramuscularly every 4 weeks. 2. Continue Cogentin 1 mg by mouth twice a day. 3. Continue medication management, individual and group therapy.
[2017-07-11] MEDS: BENZTROPINE 1 MG TAB PO SCH ×2 (08:35→21:00)
[2017-07-11] MEDS: **PENDING PPD ENTRY XX SCH (08:36)
--- NOTE | 2017-07-11 15:40 | MHIPN ---
DATE OF SERVICE: 07/11/2017 HISTORY: A 27-year-old female with a history of bipolar disorder, admitted to our unit with a full blown manic episode. The patient was exhibiting dangerous behavior on the highway. The patient was barefoot and in her pajamas. She was delusional, paranoid, angry and uncooperative. MEDICATIONS: - Haldol decanoate 200 mg intramuscularly every 4 weeks - Cogentin 1 mg by mouth twice a day SUBJECTIVE: "How are you doing dude". OBJECTIVE: A Patient is improving slowly. She is redirectable. Continues to be impulsive with pressured speech and flight of ideas, but no longer angry and irritable. Patient continues with very low insight into her psychiatric illness. MENTAL STATUS EXAMINATION: The patient is dressed in [facility]. She is cooperative during the interview having continues with flight of ideas, she is talkative, she is less impulsive, continues with pressured speech, continues with paranoid delusions, somewhat grandiose. Insight and judgment is poor. ASSESSMENT: 1. Bipolar disorder, manic episode. PLAN: 1. Continue Haldol decanoate 200 mg intramuscularly every 4 weeks. 2. Continue Cogentin 1 mg by mouth twice a day. 3. Continue medication management, individual and group therapy.
[2017-07-12 07:02] VITALS: BP 129/70
[2017-07-12] MEDS: **PENDING PPD ENTRY XX SCH (09:00)
[2017-07-12] MEDS: BENZTROPINE 1 MG TAB PO SCH ×2 (09:00→21:00)
[2017-07-13 06:47] VITALS: BP 123/78
[2017-07-13] MEDS: **PENDING PPD ENTRY XX SCH (09:00)
[2017-07-13] MEDS: BENZTROPINE 1 MG TAB PO SCH ×2 (09:00→21:00)
[2017-07-14] MEDS: **PENDING PPD ENTRY XX SCH (08:29)
[2017-07-14] MEDS: BENZTROPINE 1 MG TAB PO SCH ×2 (08:29→21:00)
--- NOTE | 2017-07-14 18:41 | MHIPN ---
DATE OF SERVICE: 07/14/2017 HISTORY: 27-year-old female with a history of bipolar disorder, admitted to our unit with a full-blown manic episode. The patient was exhibiting dangerous behavior on the highway. The patient was barefoot and in her pajamas. She was delusional, paranoid, angry, and uncooperative. MEDICATIONS: - Haldol decanoate 200 mg intramuscularly every 4 weeks - Cogentin 1 mg by mouth twice a day SUBJECTIVE: "Am I going to [place]?" OBJECTIVE: The patient is improving very slowly. She is more redirectable. No anger or explosive behavior for several days. The patient continues with pressured speech and flight of ideas and continues to express paranoid delusions. There are no side effects from the medication. MENTAL STATUS EXAMINATION: The patient dressed in [facility]. The patient is partially cooperative but continues to have flight of ideas and being tangential. The patient is talkative, less impulsive, continues with pressured speech, continues with paranoid delusions, somewhat grandiose. Insight and judgment is poor. ASSESSMENT: Bipolar disorder, manic episode. PLAN: 1. Continue Haldol decanoate 200 mg intramuscularly every 4 weeks. 2. Continue Cogentin 1 mg by mouth twice a day. 3. Continue medication management, individual and group therapy. [facility]
[2017-07-15] MEDS: BENZTROPINE 1 MG TAB PO SCH ×2 (09:00→21:00)
[2017-07-15] MEDS: **PENDING PPD ENTRY XX SCH (09:00)
--- NOTE | 2017-07-15 16:44 | MHIPN ---
DATE: 07/15/2017 HISTORY: 27-year-old female with a history of bipolar disorder, admitted to our unit with a full blown manic episode. The patient was exhibiting dangerous behavior on the highway. THe patient was barefoot and in her pajamas. She was delusional, paranoid, angry, and uncooperative. MEDICATIONS: - Haldol decanoate 200 mg intramuscularly every 4 weeks - Cogentin 1 mg by mouth twice a day OBJECTIVE: The patient continues to improve very slow. She is redirectable and no longer manic, but hypomanic. She continues with flight of ideas and paranoid delusions. Denies side effects from the medication. MENTAL STATUS EXAMINATION: The patient is dressed in [facility]. The patient is partially cooperative. Continues with flight of ideas and pressured speech. She is talkative. She is less impulsive. Continues with paranoid delusions. Insight and judgment are poor. ASSESSMENT: 1. Bipolar disorder, manic episode. PLAN: 1. Continue Haldol decanoate 200 mg intramuscularly every 4 weeks. 2. Continue with Cogentin 1 mg by mouth twice a day. 3. Continue medication management, individual and group therapy. [facility]
[2017-07-16] MEDS: BENZTROPINE 1 MG TAB PO SCH ×2 (09:00→21:00)
[2017-07-16] MEDS: **PENDING PPD ENTRY XX SCH (09:00)
--- NOTE | 2017-07-16 15:31 | MHIPN ---
DATE OF SERVICE: 07/16/2017 HISTORY: 27-year-old female with history of bipolar disorder, admitted to our unit with a full blown manic episode. Patient was exhibiting dangerous behavior on the highway. Patient was barefoot and in her pajamas. She was delusional, paranoid, angry and uncooperative. MEDICATIONS: - Haldol decanoate 200 mg intramuscularly every 4 weeks - Cogentin 1 mg by mouth twice a day SUBJECTIVE: "I cannot take pills." OBJECTIVE: Patient is improving. She is no longer manic but continues with symptoms compatible with hypomania. Patient has flight of ideas. Continues being paranoid, tangential. Very low insight. MENTAL STATUS EXAMINATION: Patient dressed in [facility]. Patient is partially cooperative. Continues with flight of ideas, pressured speech. Been talkative, tangential. She is less impulsive. Can be easily redirected. Continues paranoid. Insight and judgment are poor. ASSESSMENT: Bipolar disorder, manic episode. PLAN: 1. Continue Haldol decanoate 200 mg IM every 4 weeks. 2. Continue Cogentin 1 mg by mouth twice a day. 3. Continue medication management, individual and group therapy.
[2017-07-17] MEDS: **PENDING PPD ENTRY XX SCH (08:39)
[2017-07-17] MEDS: BENZTROPINE 1 MG TAB PO SCH (08:39)
[2017-07-17] MEDS ORDERED: BENZTROPINE 1 MG TAB PO PRN (09:30)
[2017-07-17] MEDS ORDERED: BENZ-52 PO (09:34)
[2017-07-17] MEDS ORDERED: HALO10AM IM (09:34)
--- NOTE | 2017-07-17 09:39 | MHDS ---
DATE OF ADMISSION: 06/19/2017 DATE OF DISCHARGE: 07/17/2017 HISTORY OF PRESENT ILLNESS: 27-year-old female with a history of bipolar disorder admitted to our unit for treatment of full blown manic episode. According to the record, the patient was brought to our emergency department by the police. The patient was exhibiting dangerous behavior on the highway. Apparently, she was found walking on [address] barefoot in her pajamas. Her behavior is described as manic, delusional paranoid, hostile, uncooperative. The patient was required to be placed in four-point restraints and medicated during the emergency department evaluation. The patient was unable to cooperate with history and physical and mental status examination in our unit after admission. She continued to be very delusional, paranoids, hostile, angry with pressured speech, very expansive, walking the hallways back and fourth. She showed very poor insight and judgment. The patient was admitted to our service in November 2016 with similar symptoms. At that time, she was sent to [facility]. LABS AT ADMISSION: Her CBC showed WBC 16.2. The rest was unremarkable. CMP was unremarkable except CPK of 267. TSH was within normal limits. test was negative. Her blood alcohol level was negative and urine drug screen was also negative. HOSPITAL COURSE: After the evaluation, the patient had to be medicated several times for agitation and aggression. After a few days, she started to accept her outpatient treatment which was Haldol decanoate 200 mg IM every 28 days and Cogentin 1 mg by mouth twice a day. She has continued in manic behavior for more than 2 weeks. After she got her second IM Haldol decanoate injection, she started to improve slowly and progressively. At this point, the patient is no longer manic but continues to have pressured speech and flight of ideas. The patient is redirectable. The patient was in need of a one-to-one close observation but now she no longer needs this level of care. The patient remains with low insight on her psychiatric illness and continues to be paranoid, at times grandiose and at times laughs inappropriately. The patient is not having side effects from the Haldol decanoate. At this point, she wants to be transferred to [facility] under the care of Dr. Miles who was her psychiatrist during the last admission. From the medical point of view, she is stable. MENTAL STATUS EXAMINATION: The patient is dressed in casual clothes. The patient is partially cooperative. Speech is pressured, talkative, jumping from subject to subject. Has fair eye contact. Mood is hypomanic. Affect is congruent with mood. The patient is oriented to time, first person and situation. Attention, concentration and memory are still impaired due to her hypomania. No evidence of auditory or visual hallucinations. The patient continues with paranoid delusions. The patient denies suicidal or homicidal ideation. Judgment and insight are poor. DISCHARGE MEDICATIONS: - Haldol decanoate 200 mg IM every 4 weeks - Cogentin 1 mg by mouth twice a day as needed for extrapyramidal symptoms (EPS). DIAGNOSES: AXIS I: Bipolar disorder, manic episode. AXIS II: Deferred. AXIS III: None acute. INSTRUCTIONS TO THE PATIENT: The patient will be transferred to [facility] today.
== END 2017-07-17 12:10 | DRG 885 ==
LOC: M ED 07:43 → M ED INP 16:40 → M PSY 18:07
PROVIDERS: ADMIT Psychiatry & Neurology Psychiatry; ATTEND Psychiatry & Neurology Psychiatry
DX: F31.2 Bipolar disorder, current episode manic severe with psychotic features (principal); B37.0 Candidal stomatitis; D72.829 Elevated white blood cell count, unspecified; M54.5 Low back pain; Z88.2 Allergy status to sulfonamides; Z88.0 Allergy status to penicillin; Z88.8 Allergy status to other drugs, medicaments and biological substances; Z79.899 Other long term (current) drug therapy

== ENCOUNTER → 2017-11-04 | Outpatient (CLI) | payer MEDICARE, MEDICAID ==
[2017-11-04 19:54] LABS: HEMATOCRIT 46.3 % (36.0-47.0); HEMOGLOBIN 15.1 g/dl (12.0-16.0); MEAN CORPUSCULAR HEMOGLOBIN 28.2 pg (27.0-33.0); MEAN CORPUSCULAR HGB CONC 32.6 g/dl (32.0-36.5); MEAN CORPUSCULAR VOLUME 86.5 fl (80.0-96.0); PLATELET COUNT, AUTOMATED 359 10^3/uL (150-450); RED BLOOD COUNT 5.35 10^6/uL (4.00-5.40); RED CELL DISTRIBUTION WIDTH 12.3 % (11.5-14.5); WHITE BLOOD COUNT 9.9 10^3/uL (4.0-10.0)
[2017-11-04 20:13] LABS: ESTIMATED AVERAGE GLUCOSE 97 MG/DL (60-110)
[2017-11-04 20:16] LABS: ALBUMIN 4.3 GM/DL (3.2-5.2); ALKALINE PHOSPHATASE 76 U/L (45-117); ALT/SGPT 18 U/L (12-78); ANION GAP 10 MEQ/L (8-16); AST/SGOT 15 U/L (7-37); BILIRUBIN,TOTAL 0.6 MG/DL (0.2-1.0); BLOOD UREA NITROGEN 13 MG/DL (7-18); CALCIUM LEVEL 9.1 MG/DL (8.5-10.1); CARBON DIOXIDE LEVEL 26 MEQ/L (21-32); CHLORIDE LEVEL 104 MEQ/L (98-107); CHOLESTEROL LEVEL 201 MG/DL (<200); CREATININE FOR GFR 0.81 MG/DL (0.55-1.30); GLOMERULAR FILTRATION RATE > 60.0 (>60); GLUCOSE, FASTING 71 MG/DL (70-100); HDL CHOLESTEROL 67 MG/DL (>40); NON-HDL-C 134 MG/DL; POTASSIUM SERUM 4.4 MEQ/L (3.5-5.1); SODIUM LEVEL 140 MEQ/L (136-145); TOTAL PROTEIN 7.6 GM/DL (6.4-8.2); TRIGLYCERIDES LEVEL 90 MG/DL (<150)
== END ==
LOC: M WUC 15:22
DX: Z51.81 Encounter for therapeutic drug level monitoring (principal); Z79.899 Other long term (current) drug therapy
CPT/HCPCS: 80053

== ENCOUNTER → 2018-02-09 | Outpatient (REF) | payer MEDICARE, MEDICAID ==
[2018-02-09 17:33] LABS: CONTROL LINE UCG INT CTR LINE PRESENT; URINE PREG TEST NEGATIVE (NEGATIVE)
== END ==
LOC: M LAB REF 16:41
DX: Z32.00 Encounter for pregnancy test, result unknown (principal)
CPT/HCPCS: 84703

== ENCOUNTER → 2018-03-26 | Outpatient (REF) | payer MEDICARE, MEDICAID | LOC: M LAB REF 16:53 | DX: J02.9 Acute pharyngitis, unspecified (principal) | CPT/HCPCS: 87077 ==

== ENCOUNTER 2018-06-03 11:30 | Emergency (ER) | payer MEDICARE, MEDICAID ==
[2018-06-03] MEDS ORDERED: HALOPERIDOL 5 MG/ML VIAL (J1630) As Ordered (11:57)
[2018-06-03] MEDS ORDERED: LORazepam 2 MG/ML VIAL (J2060) As Ordered (11:58)
[2018-06-03] MEDS: HALOPERIDOL 5 MG/ML VIAL (J1630) IM (12:15)
[2018-06-03] MEDS: LORazepam 2 MG/ML VIAL (J2060) IM (12:16)
[2018-06-03] MEDS ORDERED: LORazepam 2 MG/ML VIAL (J2060) IM (13:50)
[2018-06-03 14:58] LABS: HEMATOCRIT 45.1 % (36.0-47.0); HEMOGLOBIN 15.1 g/dl (12.0-15.5); MEAN CORPUSCULAR HEMOGLOBIN 28.2 pg (27.0-33.0); MEAN CORPUSCULAR HGB CONC 33.5 g/dl (32.0-36.5); MEAN CORPUSCULAR VOLUME 84.1 fl (80.0-96.0); PLATELET COUNT, AUTOMATED 339 10^3/uL (150-450); RED BLOOD COUNT 5.36 10^6/uL (4.00-5.40); RED CELL DISTRIBUTION WIDTH 12.7 % (11.5-14.5); WHITE BLOOD COUNT 7.8 10^3/uL (4.0-10.0)
[2018-06-03 15:25] LABS: ACETAMINOPHEN LEVEL < 2.0 UG/ML (10.0-30.0); ALBUMIN 4.3 GM/DL (3.2-5.2); ALKALINE PHOSPHATASE 69 U/L (45-117); ALT/SGPT 21 U/L (12-78); ANION GAP 5 MEQ/L (8-16); AST/SGOT 20 U/L (7-37); BILIRUBIN,DIRECT 0.1 MG/DL (0.0-0.2); BILIRUBIN,TOTAL 0.4 MG/DL (0.2-1.0); BLOOD UREA NITROGEN 10 MG/DL (7-18); CALCIUM LEVEL 9.4 MG/DL (8.5-10.1); CARBON DIOXIDE LEVEL 30 MEQ/L (21-32); CHLORIDE LEVEL 108 MEQ/L (98-107); CREATININE FOR GFR 0.99 MG/DL (0.55-1.30); ETHYL ALCOHOL (ETHANOL) < 0.003 % (0.000-0.010); GLOMERULAR FILTRATION RATE > 60.0 (>60); GLUCOSE, FASTING 83 MG/DL (70-100); POTASSIUM SERUM 3.9 MEQ/L (3.5-5.1); SALICYLATE LEVEL < 1.7 MG/DL (5.0-30.0); SODIUM LEVEL 143 MEQ/L (136-145); TOTAL PROTEIN 7.6 GM/DL (6.4-8.2)
[2018-06-03 17:45] LABS: AMPHETAMINES LEVEL URINE NEGATIVE (NEGATIVE); BARBITURATES URINE NEGATIVE (NEGATIVE); BENZODIAZEPINES URINE POSITIVE (NEGATIVE); CANNABINOIDS URINE NEGATIVE (NEGATIVE); COCAINE METABOLITE URINE NEGATIVE (NEGATIVE); METHADONE URINE NEGATIVE (NEGATIVE); OPIATES URINE NEGATIVE (NEGATIVE); PHENCYCLIDINE URINE NEGATIVE (NEGATIVE)
[2018-06-04] MEDS: LORazepam 2 MG TAB PO (00:50)
[2018-06-04] MEDS: diphenhydrAMINE 50 MG CAP PO (04:00)
[2018-06-04] MEDS: HALOPERIDOL 5 MG TAB PO (04:00)
[2018-06-04 14:30] LABS: CONTROL LINE HCG INT CTR LINE PRESENT; HCG, SERUM QUALITATIVE NEGATIVE (NEGATIVE)
== END 2018-06-04 04:15 ==
LOC: M ED 06-04 04:15
DX: F31.9 Bipolar disorder, unspecified (principal); Z88.0 Allergy status to penicillin; Z88.1 Allergy status to other antibiotic agents; Z88.2 Allergy status to sulfonamides
CPT/HCPCS: J1630

== ENCOUNTER 2018-06-29 03:22 | Inpatient (IN) | payer MEDICARE, MEDICAID ==
[2018-06-29] MEDS: HALOPERIDOL 5 MG/ML VIAL (J1630) IM ×2 (03:54→05:00)
[2018-06-29] MEDS: diphenhydrAMINE INJ 50MG/ML VIAL (J1200) IM (03:54)
[2018-06-29 04:01] LABS: HEMOGLOBIN 14.3 g/dl (12.0-15.5); MEAN CORPUSCULAR HEMOGLOBIN 27.7 pg (27.0-33.0); MEAN CORPUSCULAR HGB CONC 32.5 g/dl (32.0-36.5); MEAN CORPUSCULAR VOLUME 85.1 fl (80.0-96.0); PLATELET COUNT, AUTOMATED 391 10^3/uL (150-450); RED BLOOD COUNT 5.17 10^6/uL (4.00-5.40); RED CELL DISTRIBUTION WIDTH 12.8 % (11.5-14.5); WHITE BLOOD COUNT 8.2 10^3/uL (4.0-10.0)
[2018-06-29 04:37] LABS: ACETAMINOPHEN LEVEL < 2.0 UG/ML (10.0-30.0); ALBUMIN/GLOBULIN RATIO 1.21 (1.00-1.93); ALKALINE PHOSPHATASE 84 U/L (45-117); ALT/SGPT 31 U/L (12-78); ANION GAP 11 MEQ/L (8-16); AST/SGOT 25 U/L (7-37); BILIRUBIN,DIRECT 0.1 MG/DL (0.0-0.2); BILIRUBIN,TOTAL 0.4 MG/DL (0.2-1.0); BLOOD UREA NITROGEN 10 MG/DL (7-18); CALCIUM LEVEL 8.9 MG/DL (8.5-10.1); CARBON DIOXIDE LEVEL 24 MEQ/L (21-32); CHLORIDE LEVEL 107 MEQ/L (98-107); CPK CREATINE PHOSPHOKINASE 241 U/L (26-192); CREATININE FOR GFR 1.08 MG/DL (0.55-1.30); ETHYL ALCOHOL (ETHANOL) < 0.003 % (0.000-0.010); GLOMERULAR FILTRATION RATE > 60.0 (>60); GLUCOSE, FASTING 108 MG/DL (70-100); POTASSIUM SERUM 4.7 MEQ/L (3.5-5.1); SALICYLATE LEVEL < 1.7 MG/DL (5.0-30.0); SODIUM LEVEL 142 MEQ/L (136-145); THYROID STIMULATING HORMONE 0.922 uIU/ML (0.358-3.740); TOTAL PROTEIN 7.3 GM/DL (6.4-8.2)
[2018-06-29 06:00] LABS: AMPHETAMINES LEVEL URINE NEGATIVE (NEGATIVE); BARBITURATES URINE NEGATIVE (NEGATIVE); BENZODIAZEPINES URINE NEGATIVE (NEGATIVE); CANNABINOIDS URINE NEGATIVE (NEGATIVE); COCAINE METABOLITE URINE NEGATIVE (NEGATIVE); METHADONE URINE NEGATIVE (NEGATIVE); OPIATES URINE NEGATIVE (NEGATIVE); PHENCYCLIDINE URINE NEGATIVE (NEGATIVE)
[2018-06-29] MEDS: chlorproMAZINE INJ 50MG/2ML AMP (J3230) IM (06:32)
[2018-06-29] MEDS ORDERED: MOM 30ML SUSPENSION UDC PO (13:30)
[2018-06-29] MEDS ORDERED: OLANZapine ORAL DISINTEGRATING TAB 5MG PO (13:30)
[2018-06-30] MEDS: ARIPiprazole 10 MG TAB PO ×3 (09:00→21:00)
[2018-06-30 10:55] LABS: CONTROL LINE HCG INT CTR LINE PRESENT; HCG, SERUM QUALITATIVE NEGATIVE (NEGATIVE)
[2018-06-30] MEDS: LORazepam 2 MG TAB PO ×2 (11:30→21:32)
[2018-06-30] MEDS: OLANZapine ORAL DISINTEGRATING TAB 5MG PO (11:31)
[2018-07-01] MEDS: LORazepam 2 MG TAB PO ×2 (06:43→15:19)
[2018-07-01] MEDS: ARIPiprazole 10 MG TAB PO (09:27)
[2018-07-01] MEDS: OLANZapine ORAL DISINTEGRATING TAB 5MG PO (09:56)
[2018-07-01] MEDS: MAALOX 30 ML SUSP *UDC PO (10:37)
[2018-07-01] MEDS: LITHIUM CARBONATE 450 MG **CR** TAB PO ×2 (15:29→21:00)
[2018-07-01] MEDS: PALIPERIDONE 3 MG ER TAB (INVEGA) PO ×2 (15:53→21:00)
[2018-07-02] MEDS: LORazepam 2 MG TAB PO ×3 (01:32→19:31)
[2018-07-02] MEDS: OLANZapine ORAL DISINTEGRATING TAB 5MG PO ×2 (05:06→19:31)
[2018-07-02] MEDS: LITHIUM CARBONATE 450 MG **CR** TAB PO ×2 (08:36→21:00)
[2018-07-02] MEDS: PALIPERIDONE 3 MG ER TAB (INVEGA) PO ×2 (09:00→21:00)
[2018-07-03] MEDS: LORazepam 2 MG TAB PO ×3 (02:27→16:01)
[2018-07-03] MEDS: LITHIUM CARBONATE 450 MG **CR** TAB PO ×2 (09:00→21:00)
[2018-07-03] MEDS: PALIPERIDONE 3 MG ER TAB (INVEGA) PO ×2 (09:00→21:00)
[2018-07-04] MEDS: LITHIUM CARBONATE 450 MG **CR** TAB PO ×2 (08:19→21:00)
[2018-07-04] MEDS: PALIPERIDONE 3 MG ER TAB (INVEGA) PO ×2 (08:19→21:00)
[2018-07-04] MEDS: LORazepam 2 MG TAB PO (22:30)
[2018-07-04] MEDS: HALOPERIDOL 5 MG/ML VIAL (J1630) IM (22:41)
[2018-07-04] MEDS: LORazepam 2 MG/ML VIAL (J2060) IM (22:41)
[2018-07-04] MEDS: diphenhydrAMINE INJ 50MG/ML VIAL (J1200) IM (22:41)
[2018-07-05] MEDS: cloNIDine 0.1 MG TAB PO (00:40)
[2018-07-05] MEDS: LITHIUM CARBONATE 450 MG **CR** TAB PO ×3 (09:00→21:42)
[2018-07-05] MEDS: PALIPERIDONE 3 MG ER TAB (INVEGA) PO ×2 (09:00→21:00)
[2018-07-05] MEDS: traZODone 50 MG TAB PO (21:42)
[2018-07-05] MEDS: LORazepam 2 MG TAB PO (21:42)
[2018-07-05] MEDS: OLANZapine ORAL DISINTEGRATING TAB 5MG PO (21:42)
[2018-07-06] MEDS: LITHIUM CARBONATE 450 MG **CR** TAB PO ×2 (09:00→21:00)
[2018-07-06] MEDS: PALIPERIDONE 3 MG ER TAB (INVEGA) PO ×2 (09:00→21:00)
[2018-07-06] MEDS: chlorproMAZINE INJ 50MG/2ML AMP (J3230) IM ×3 (12:10→20:35)
[2018-07-06] MEDS: LORazepam 2 MG/ML VIAL (J2060) IM ×4 (12:11→22:16)
[2018-07-06] MEDS: diphenhydrAMINE INJ 50MG/ML VIAL (J1200) IM ×3 (12:11→22:16)
[2018-07-06] MEDS: HALOPERIDOL 5 MG/ML VIAL (J1630) IM ×2 (20:10→22:16)
[2018-07-07] MEDS: LITHIUM CARBONATE 450 MG **CR** TAB PO ×2 (09:00→22:29)
[2018-07-07] MEDS: PALIPERIDONE 3 MG ER TAB (INVEGA) PO ×2 (09:00→21:00)
[2018-07-07] MEDS: LORazepam 2 MG TAB PO ×2 (16:11→22:29)
[2018-07-08] MEDS: LITHIUM CARBONATE 450 MG **CR** TAB PO ×2 (07:55→21:00)
[2018-07-08] MEDS: LORazepam 2 MG TAB PO ×2 (07:55→12:15)
[2018-07-08] MEDS: PALIPERIDONE 3 MG ER TAB (INVEGA) PO ×2 (09:00→21:00)
[2018-07-08] MEDS: chlorproMAZINE 25 MG TAB (Q0161) PO (12:15)
[2018-07-08] MEDS ORDERED: chlorproMAZINE INJ 50MG/2ML AMP (J3230) IM (12:18)
[2018-07-08] MEDS: LORazepam 2 MG/ML VIAL (J2060) IM (12:18)
[2018-07-08] MEDS: chlorproMAZINE INJ 50MG/2ML AMP (J3230) IM (15:20)
[2018-07-08] MEDS: ONDANSETRON 4MG/2ML VIAL (J2405) IM (15:30)
[2018-07-09] MEDS: PALIPERIDONE 3 MG ER TAB (INVEGA) PO ×2 (09:00→21:00)
[2018-07-09] MEDS: LITHIUM CARBONATE 450 MG **CR** TAB PO ×2 (09:00→21:00)
[2018-07-09] MEDS: LORazepam 2 MG/ML VIAL (J2060) IM ×3 (09:35→22:36)
[2018-07-09] MEDS: chlorproMAZINE INJ 50MG/2ML AMP (J3230) IM ×2 (09:35→22:35)
[2018-07-09] MEDS: ACETAMINOPHEN TAB 650MG DOSE (2X325MG) PO (18:17)
[2018-07-09] MEDS ORDERED: HALOPERIDOL 5 MG/ML VIAL (J1630) IM (23:52)
[2018-07-09] MEDS ORDERED: LORazepam 2 MG/ML VIAL (J2060) IM (23:52)
[2018-07-09] MEDS ORDERED: diphenhydrAMINE INJ 50MG/ML VIAL (J1200) IM (23:52)
[2018-07-10] MEDS: LITHIUM CARBONATE 450 MG **CR** TAB PO ×2 (09:00→21:00)
[2018-07-10] MEDS: PALIPERIDONE 3 MG ER TAB (INVEGA) PO ×2 (09:00→21:00)
[2018-07-10] MEDS: cefTRIAXone SOD 1 GM VIAL (J0696) IM (11:00)
[2018-07-10] MEDS: chlorproMAZINE INJ 50MG/2ML AMP (J3230) IM ×3 (11:11→22:16)
[2018-07-10] MEDS: LORazepam 2 MG/ML VIAL (J2060) IM (21:43)
[2018-07-11] MEDS: LORazepam 2 MG/ML VIAL (J2060) IM (00:16)
[2018-07-11] MEDS: LITHIUM CARBONATE 450 MG **CR** TAB PO ×2 (09:00→20:51)
[2018-07-11] MEDS: PALIPERIDONE 3 MG ER TAB (INVEGA) PO ×2 (09:00→20:51)
[2018-07-11] MEDS: LORazepam 2 MG TAB PO (20:49)
[2018-07-12] MEDS: LORazepam 2 MG TAB PO (05:14)
[2018-07-12] MEDS: MAALOX 30 ML SUSP *UDC PO (08:35)
[2018-07-12] MEDS: PALIPERIDONE 3 MG ER TAB (INVEGA) PO ×2 (09:00→21:00)
[2018-07-12] MEDS: LITHIUM CARBONATE 450 MG **CR** TAB PO ×3 (09:00→21:00)
[2018-07-12] MEDS: chlorproMAZINE INJ 50MG/2ML AMP (J3230) IM ×3 (12:56→19:15)
[2018-07-12] MEDS: ALPRAZolam 0.5 MG TAB PO (17:45)
[2018-07-13] MEDS: LITHIUM CARBONATE 450 MG **CR** TAB PO ×2 (07:40→21:06)
[2018-07-13] MEDS: PALIPERIDONE 3 MG ER TAB (INVEGA) PO ×2 (09:00→21:00)
[2018-07-13] MEDS: chlorproMAZINE INJ 50MG/2ML AMP (J3230) IM ×3 (09:10→22:48)
[2018-07-13] MEDS: OLANZapine INTRAMUSCULAR 10 MG VIAL (S0166) IM (10:39)
[2018-07-13] MEDS: LORazepam 2 MG/ML VIAL (J2060) IM ×2 (10:39→22:48)
[2018-07-14] MEDS: PALIPERIDONE 3 MG ER TAB (INVEGA) PO ×2 (09:00→21:00)
[2018-07-14] MEDS: LITHIUM CARBONATE 450 MG **CR** TAB PO ×2 (09:00→21:08)
[2018-07-14] MEDS: chlorproMAZINE 25 MG TAB (Q0161) PO (10:28)
[2018-07-14] MEDS: chlorproMAZINE INJ 50MG/2ML AMP (J3230) IM ×2 (15:32→20:05)
[2018-07-14] MEDS: LORazepam 2 MG/ML VIAL (J2060) IM (20:13)
[2018-07-15] MEDS: LITHIUM CARBONATE 450 MG **CR** TAB PO ×2 (10:50→21:15)
[2018-07-15] MEDS: PALIPERIDONE 3 MG ER TAB (INVEGA) PO ×2 (10:52→21:00)
[2018-07-15] MEDS: OLANZapine INTRAMUSCULAR 10 MG VIAL (S0166) IM ×2 (13:30→19:06)
[2018-07-15] MEDS: LORazepam 2 MG TAB PO (22:12)
[2018-07-16] MEDS: PALIPERIDONE 3 MG ER TAB (INVEGA) PO ×2 (09:00→21:00)
[2018-07-16] MEDS: LITHIUM CARBONATE 450 MG **CR** TAB PO ×2 (09:33→21:00)
[2018-07-16] MEDS: OLANZapine INTRAMUSCULAR 10 MG VIAL (S0166) IM (13:48)
[2018-07-16] MEDS: chlorproMAZINE 25 MG TAB (Q0161) PO (15:30)
[2018-07-16] MEDS: chlorproMAZINE INJ 50MG/2ML AMP (J3230) IM ×2 (16:28→21:54)
[2018-07-16] MEDS: LORazepam 2 MG/ML VIAL (J2060) IM (21:54)
[2018-07-17] MEDS: PALIPERIDONE 3 MG ER TAB (INVEGA) PO ×2 (09:00→21:28)
[2018-07-17] MEDS: LITHIUM CARBONATE 450 MG **CR** TAB PO ×2 (09:58→21:28)
[2018-07-17] MEDS: chlorproMAZINE INJ 50MG/2ML AMP (J3230) IM (12:27)
[2018-07-17] MEDS: LORazepam 2 MG TAB PO (19:16)
[2018-07-18] MEDS: PALIPERIDONE 3 MG ER TAB (INVEGA) PO ×2 (09:00→23:10)
[2018-07-18] MEDS: LITHIUM CARBONATE 450 MG **CR** TAB PO ×2 (09:05→23:10)
[2018-07-18] MEDS: chlorproMAZINE INJ 50MG/2ML AMP (J3230) IM (19:29)
[2018-07-19] MEDS: PALIPERIDONE 3 MG ER TAB (INVEGA) PO ×2 (09:00→21:00)
[2018-07-19] MEDS: LITHIUM CARBONATE 450 MG **CR** TAB PO ×2 (11:58→21:00)
[2018-07-20] MEDS: PALIPERIDONE 3 MG ER TAB (INVEGA) PO ×2 (09:00→21:00)
[2018-07-20] MEDS: LITHIUM CARBONATE 450 MG **CR** TAB PO ×2 (10:06→21:00)
[2018-07-20] MEDS: LORazepam 2 MG TAB PO (16:48)
[2018-07-21] MEDS: PALIPERIDONE 3 MG ER TAB (INVEGA) PO ×2 (09:00→20:42)
[2018-07-21] MEDS: LITHIUM CARBONATE 450 MG **CR** TAB PO ×2 (09:41→20:42)
[2018-07-21] MEDS: OLANZapine ORAL DISINTEGRATING TAB 5MG PO ×4 (10:20→20:41)
[2018-07-21] MEDS: chlorproMAZINE 25 MG TAB (Q0161) PO ×2 (11:11→20:58)
[2018-07-21] MEDS: LORazepam 2 MG TAB PO (18:13)
[2018-07-22] MEDS: LITHIUM CARBONATE 450 MG **CR** TAB PO ×2 (08:52→20:49)
[2018-07-22] MEDS: PALIPERIDONE 3 MG ER TAB (INVEGA) PO (08:53)
[2018-07-22] MEDS: OLANZapine ORAL DISINTEGRATING TAB 5MG PO (08:53)
[2018-07-22] MEDS: chlorproMAZINE 25 MG TAB (Q0161) PO ×4 (11:27→21:31)
[2018-07-23] MEDS: ACETAMINOPHEN TAB 650MG DOSE (2X325MG) PO (02:20)
[2018-07-23] MEDS: LORazepam 2 MG TAB PO (07:31)
[2018-07-23] MEDS: LITHIUM CARBONATE 450 MG **CR** TAB PO ×2 (08:03→21:00)
[2018-07-23] MEDS: chlorproMAZINE 25 MG TAB (Q0161) PO ×4 (11:00→21:00)
[2018-07-24] MEDS: LITHIUM CARBONATE 450 MG **CR** TAB PO ×2 (08:04→21:05)
[2018-07-24] MEDS: chlorproMAZINE 25 MG TAB (Q0161) PO ×4 (08:04→21:05)
[2018-07-25] MEDS: LITHIUM CARBONATE 450 MG **CR** TAB PO ×2 (08:54→20:35)
[2018-07-25] MEDS: chlorproMAZINE 25 MG TAB (Q0161) PO ×4 (08:54→21:05)
[2018-07-25 13:37] LABS: ANION GAP 8 MEQ/L (8-16); BLOOD UREA NITROGEN 7 MG/DL (7-18); CARBON DIOXIDE LEVEL 26 MEQ/L (21-32); CHLORIDE LEVEL 105 MEQ/L (98-107); CPK CREATINE PHOSPHOKINASE 82 U/L (26-192); CREATININE FOR GFR 0.68 MG/DL (0.55-1.30); GLOMERULAR FILTRATION RATE > 60.0 (>60); GLUCOSE, FASTING 92 MG/DL (70-100); LITHIUM LEVEL 0.57 MEQ/L (0.60-1.20); POTASSIUM SERUM 4.5 MEQ/L (3.5-5.1); SODIUM LEVEL 139 MEQ/L (136-145)
[2018-07-26] MEDS: LITHIUM CARBONATE 450 MG **CR** TAB PO ×2 (08:43→20:43)
[2018-07-26] MEDS: chlorproMAZINE 25 MG TAB (Q0161) PO ×4 (10:15→20:42)
[2018-07-27] MEDS: LITHIUM CARBONATE 450 MG **CR** TAB PO (08:51)
[2018-07-27] MEDS: chlorproMAZINE 25 MG TAB (Q0161) PO ×5 (08:51→20:08)
[2018-07-27] MEDS ORDERED: HALOPERIDOL 10 MG TAB PO (09:00)
[2018-07-27] MEDS: PALIPERIDONE PALMITATE 234 MG/1.5 ML INJ (INVEGA SUSTENNA)(J2426) IM (12:17)
[2018-07-27] MEDS: LITHIUM CARBONATE 300 MG **CR** TAB PO (20:08)
[2018-07-28] MEDS: LITHIUM CARBONATE 300 MG **CR** TAB PO ×2 (08:35→20:16)
[2018-07-28] MEDS: chlorproMAZINE 25 MG TAB (Q0161) PO ×4 (08:35→20:17)
[2018-07-28] MEDS ORDERED: MAALOX 30 ML SUSP *UDC PO (15:45)
[2018-07-28] MEDS ORDERED: MOM 30ML SUSPENSION UDC PO (15:45)
[2018-07-28] MEDS: LORazepam 2 MG TAB PO (20:16)
[2018-07-29] MEDS: LITHIUM CARBONATE 300 MG **CR** TAB PO ×2 (08:57→20:03)
[2018-07-29] MEDS: chlorproMAZINE 25 MG TAB (Q0161) PO ×4 (09:37→20:03)
[2018-07-30] MEDS: LITHIUM CARBONATE 300 MG **CR** TAB PO ×2 (08:14→20:45)
[2018-07-30] MEDS: chlorproMAZINE 25 MG TAB (Q0161) PO ×4 (08:15→20:45)
[2018-07-30] MEDS: PALIPERIDONE PALMITATE 156 MG/1ML INJ(INVEGA SUSTENNA)(J2426) IM (10:46)
[2018-07-30] MEDS: LORazepam 2 MG TAB PO (22:02)
[2018-07-31] MEDS: chlorproMAZINE 25 MG TAB (Q0161) PO ×3 (08:50→20:58)
[2018-07-31] MEDS: LITHIUM CARBONATE 300 MG **CR** TAB PO ×2 (08:50→20:58)
[2018-08-01] MEDS: chlorproMAZINE 25 MG TAB (Q0161) PO ×3 (08:24→20:19)
[2018-08-01] MEDS: LITHIUM CARBONATE 300 MG **CR** TAB PO ×2 (09:15→20:19)
[2018-08-02] MEDS: chlorproMAZINE 25 MG TAB (Q0161) PO ×3 (08:34→20:50)
[2018-08-02] MEDS: LITHIUM CARBONATE 300 MG **CR** TAB PO ×2 (08:35→20:51)
[2018-08-03] MEDS: chlorproMAZINE 25 MG TAB (Q0161) PO (08:56)
[2018-08-03] MEDS: LITHIUM CARBONATE 300 MG **CR** TAB PO ×2 (08:56→20:53)
[2018-08-03] MEDS ORDERED: chlorproMAZINE 25 MG TAB (Q0161) PO (10:45)
[2018-08-03 13:00] LABS: LITHIUM LEVEL 0.99 MEQ/L (0.60-1.20)
[2018-08-03] MEDS: LORazepam 2 MG TAB PO (21:53)
[2018-08-03] MEDS: traZODone 50 MG TAB PO (21:53)
[2018-08-04] MEDS: LITHIUM CARBONATE 300 MG **CR** TAB PO ×2 (09:00→20:48)
[2018-08-04] MEDS: ACETAMINOPHEN TAB 650MG DOSE (2X325MG) PO (15:25)
[2018-08-05] MEDS: LITHIUM CARBONATE 300 MG **CR** TAB PO (08:48)
== END 2018-08-05 11:55 | disposition home or self-care (01) | DRG 885 ==
LOC: M ED 03:22 → M ED INP 13:28 → M PSY 14:29
DX: F31.2 Bipolar disorder, current episode manic severe with psychotic features (principal); Z88.2 Allergy status to sulfonamides; Z88.0 Allergy status to penicillin; F43.10 Post-traumatic stress disorder, unspecified; F90.9 Attention-deficit hyperactivity disorder, unspecified type; F17.200 Nicotine dependence, unspecified, uncomplicated

== ENCOUNTER 2018-08-10 01:42 | Inpatient (IN) | payer MEDICARE, MEDICAID ==
[~2018-08-10] VITALS: Ht 160 cm; Wt 73.4 kg
[~2018-08-10 01:42] MED LIST changes: +ABIL10TA9; +ALPR0.5T3; +ARIP1TAB; +ARIP1TAB PO; +BENZ-52 PO; +CEFUROXIME; +CHLO25TA38 PO; +CHLOR25TA PO; +CLON0.5T8; +GEOD40CA13 PO; -GEOD40CA2 PO; +HALO10AM; +HALO10AM IM; -HALOPERIDOL 5 MG/ML VIAL (J1630) As Ordered ONE; +INVE234I IM; +LITH1TAB PO; +LITH300C PO; +NYST50SS; +TRAZ-160 PO; -TRAZ50TA11 PO; +TRAZO50TA PO; +VIST50CA PO; +VITA400T15 PO; +VITA50005; -diphenhydrAMINE INJ 50MG/ML VIAL (J1200) As Ordered ONE
[2018-08-10] MEDS ORDERED: HALOPERIDOL 5 MG/ML VIAL (J1630) IM ONE (02:00)
[2018-08-10] MEDS ORDERED: LORazepam 2 MG/ML VIAL (J2060) IM ONE ×2 (02:00→10:00)
[2018-08-10] MEDS ORDERED: diphenhydrAMINE INJ 50MG/ML VIAL (J1200) IM ONE (02:00)
[2018-08-10 02:50] LABS: HEMATOCRIT 45.6 % (36.0-47.0); HEMOGLOBIN 14.9 g/dl (12.0-15.5); MEAN CORPUSCULAR HEMOGLOBIN 26.9 pg (27.0-33.0); MEAN CORPUSCULAR HGB CONC 32.7 g/dl (32.0-36.5); MEAN CORPUSCULAR VOLUME 82.5 fl (80.0-96.0); PLATELET COUNT, AUTOMATED 380 10^3/uL (150-450); RED BLOOD COUNT 5.53 10^6/uL (4.00-5.40); WHITE BLOOD COUNT 15.4 10^3/uL (4.0-10.0)
[2018-08-10 03:12] LABS: HCG, SERUM QUALITATIVE NEGATIVE (NEGATIVE)
[2018-08-10 04:15] LABS: ALBUMIN 4.2 GM/DL (3.2-5.2); ALT/SGPT 66 U/L (12-78); BILIRUBIN,DIRECT < 0.1 MG/DL (0.0-0.2); BILIRUBIN,TOTAL 0.4 MG/DL (0.2-1.0); BLOOD UREA NITROGEN 12 MG/DL (7-18); CARBON DIOXIDE LEVEL 24 MEQ/L (21-32); CHLORIDE LEVEL 103 MEQ/L (98-107); CREATININE FOR GFR 0.96 MG/DL (0.55-1.30); GLOMERULAR FILTRATION RATE > 60.0 (>60); GLUCOSE, FASTING 50 MG/DL (70-100); LITHIUM LEVEL < 0.20 MEQ/L (0.60-1.20); POTASSIUM SERUM 3.2 MEQ/L (3.5-5.1); SALICYLATE LEVEL < 1.7 MG/DL (5.0-30.0); SODIUM LEVEL 137 MEQ/L (136-145); TOTAL PROTEIN 8.1 GM/DL (6.4-8.2)
[2018-08-10 04:16] LABS: ACETAMINOPHEN LEVEL < 2.0 UG/ML (10.0-30.0); ETHYL ALCOHOL (ETHANOL) < 0.003 % (0.000-0.010)
[2018-08-10 04:34] LABS: AMPHETAMINES LEVEL URINE POSITIVE (NEGATIVE); BARBITURATES URINE NEGATIVE (NEGATIVE); BENZODIAZEPINES URINE NEGATIVE (NEGATIVE); CANNABINOIDS URINE NEGATIVE (NEGATIVE); COCAINE METABOLITE URINE NEGATIVE (NEGATIVE); METHADONE URINE NEGATIVE (NEGATIVE); OPIATES URINE NEGATIVE (NEGATIVE); PHENCYCLIDINE URINE NEGATIVE (NEGATIVE)
[2018-08-10] MEDS ORDERED: traZODone 50 MG TAB PO PRN ×2 (06:45→09:45)
[2018-08-10] MEDS ORDERED: OLANZapine ORAL DISINTEGRATING TAB 5MG PO PRN (06:45)
[2018-08-10] MEDS ORDERED: MAALOX 30 ML SUSP *UDC PO PRN ×2 (06:45→09:45)
[2018-08-10] MEDS ORDERED: MOM 30ML SUSPENSION UDC PO PRN ×2 (06:45→09:45)
[2018-08-10] MEDS ORDERED: hydrOXYzine 50 MG TAB PO PRN ×2 (06:45→09:45)
[2018-08-10] MEDS ORDERED: CHLOR25TA PO (07:50)
[2018-08-10] MEDS ORDERED: HYDR50CA2 PO (07:50)
[2018-08-10] MEDS ORDERED: TRAZ-160 PO (07:50)
[2018-08-10] MEDS ORDERED: INVE234I IM (07:50)
[2018-08-10] MEDS ORDERED: LITH300C PO (07:50)
[2018-08-10] MEDS ORDERED: PATIENT COMMENTS (07:54)
[2018-08-10 08:45] VITALS: BP 134/100
--- NOTE | 2018-08-10 09:43 | MHHPEPDOC ---
General Date Of Admission: Aug 10, 2018 Legal Status: 9.39 Chief Complaint "psychotiic" History of Present Illness HISTORY OF THE PRESENT ILLNESS: Patient is a 28 -year-old , female, with a history of schizoaffective d/o just d/c [facility] last week after 1.5 month stay for linda with psychosis who brought to ED yesterday by police after 911 called for pt acting bizarre and paranoid in the community. In the ED pt was agitated and had to be medicated. She appeared psychotic, talking to herself with fight of ideas and tangential thought. Pt utox postive amphetamines. [place] subtherapeutic at 0.20 when it was 0.99 upon d/c last week. Pt seen today and appearing psychotic with fight of ideas, hyperverbal speech, and tangential thoughts. Delusional with pseudocyesis. Pt is a poor historian with poor ability to participate adequately with interview most likely due to methamphetamine/amphetamine use and medication noncompliance. History gathered from previous records. Psychiatric Review of Systems Depression (2 or more weeks): denies Linda (4 or more days of): irritable/elevated mood, expansive mood, grandiosity, decreased need for sleep, talkativity, pressured, flight of ideas, distractibility, goal-directed activities, engages in risky behavior Psychosis: auditory hallucination, delusions, paranoia, disorganization PTSD: denies Anxiety: situational anxiety, stressor related anxiety Anxiety/ 6 months or more of: restlessness, keyed up, difficulty concentrating, irritability, sleep disturbance Past Psychiatric History Previous Psychiatric Diagnosis: Schizoaffective d/o Previous Psychiatric Admissions: previous admissions [facility] 11/25 and 07/27 for linda, transferred to [facility] under court order during 11/25 admission. Just d/c [facility] 08/05/18 after 1.5mo stay for linda with psychosis Suicide Attempts: none known Psychiatric Follow-up: unknown Psychiatric medications: invega sustenna, lithium, thorazIne Past Medical History Medical Problems knee and back pain, neck C4-C5 injury ear graft in 1995 with tympanostomy. Head Injury: No Seizures: No Hospitalizations: Yes Surgeries: Yes Family Medical/Psychiatric HX Medical Problems noncontributory Psychiatric Disorders: No Addiction: No Suicide Attemps/Completions: No Addiction History amphetamines (u tox postive), methamphetamines (u tox positive) Social History Childhood: unable to assess Abuse/Trauma:unable to assess Current Living Situation: lives in [place] Education: unable to assess Employment: on disability Social Support: brother Legal: none known Marital: single, no kids Mental Status Examination General Appearance: well groomed, appears stated age, hospital scubs/clothing Build: average Demeanor: very figety, other (manic) Eye Contact: average Activity: anxious, other (manic) Behavior: cooperative, impulsive, hyperactive Speech: pressured, normal volume Mood: anxious, other (manic) Mood manic Affect: inappropriate, labile, anxious, disorganized Thought Process: tangential, loose, associative, flight of ideas, racing, derailment Thought Content (Delusions): bizarre, delusions (pseudocyesis, metal plates in body) Thought Content (Other): preoccupied, obsessional, ideas of reference, internal-stimuli, appears paranoid Thought Content (Aggressive): none reported Perception (Hallucinations): auditory Perception (Other): none reported Cognition (Impairment of): attention/concentration, ability to abstract Cognition(Intelligence Est.): average Oriented: Awake, Alert, Oriented times three Insight: poor Judgment: Poor Psychosis: Associations, Abstract Thinking, Psychotic Perceptions Diagnoses Schizoaffective d/o Assessment Pt is manic, uncooperative, and emotionally labile due to medication non- compliance most likely. Will restart lithium, thorazine, atarax, ativan. Initial Treatment Plan 1. Patient was admitted on a 9.39 status. 2. Complete history was obtained. 3. With patients permission, family will be contacted and database will be expanded. 4. Patients medication regimen will be reviewed and changed accordingly. 5. Patient will be provided with protected environment. 6. Patient will be treated with individual, group, and milieu therapies. 7. Patient will receive supportive psych-education. 8. Discharge planning will commence immediately. 9. Outpatient follow-up treatment will be strongly recommended. 10. The initial treatment plan will focus initially on: * Depression. * Risk for suicide. * Substance abuse 11. restart lithium, thorazine, atarax, ativan. ESTIMATED LENGTH OF STAY: 7-9 DAYS. TIME SPENT COUNSELING AND COORDINATING INITIAL CARE: 60 minutes. Vital Signs Vital Signs Date Time Temp Pulse Resp B/P (MAP) Pulse Ox O2 Delivery O2 Flow Rate FiO2 12/31/18 08:17 97.6 120 20 133/88 (103) 100 08/10/18 05:56 Room Air Laboratory Data 24H Labs Laboratory Tests 2 08/10/18 02:41: Nucleated Red Blood Cells % (auto) 0.0, Anion Gap 10, Glomerular Filtration Rate > 60.0, Calcium Level 9.0, Aspartate Amino Transf (AST/SGOT) 25, Alanine Am inotransferase (ALT/SGPT) 66, Alkaline Phosphatase 109, Total Bilirubin 0.4, Direct Bilirubin < 0.1, Total Protein 8.1, Albumin 4.2, Albumin/Globulin Ratio 1.08, Thyroid Stimulating Hormone (TSH) 5.680H, Human Chorionic Gonadotropin, Qual NEGATIVE, Salicylates Level < 1.7L, Urine Amphetamines Screen POSITIVEH, Urine Benzodiazepines Screen NEGATIVE, Urine Opiates Screen NEGATIVE, Urine Methadone Screen NEGATIVE, Acetaminophen Level < 2.0L, Urine Barbiturates Screen NEGATIVE, Urine Phencyclidine Screen NEGATIVE, [place] Level < 0.20L, Urine Cocaine Metabolite Screen NEGATIVE, Urine Cannabinoids Screen NEGATIVE, Ethyl Alcohol Level < 0.003 08/10/18 04:53: Bedside Glucose (Misc Panel) 121H CBC/BMP Laboratory Tests 08/10/18 02:41 Red Blood Count 5.53 H, Mean Corpuscular Volume 82.5, Mean Corpuscular Hemoglobin 26.9 L, Mean Corpuscular Hemoglobin Concent 32.7, Red Cell Distribution Width 14.0 Medications Scheduled Chlorpromazine HCl (Chlorpromazine HCl) 25 Mg Tab, 25 MG PO TID, (Reported) Hydroxyzine Pamoate (Hydroxyzine Pamoate) 50 Mg Cap, 50 MG PO TID, (Reported) [place] Carbonate ([place] Carbonate) 300 Mg Cap, 600 MG PO BID, (Reported) Paliperidone Palmitate (Invega Sustenna) 234 Mg/1.5 Ml Inj, 234 MG IM QMONTH, (Reported) Scheduled PRN Trazodone HCl (Trazodone HCl) 50 Mg Tab, 50 MG PO QHS PRN for INSOMNIA, (Reported) Miscellaneous Medications [Patient Comments] , (Reported) PATIENT IS POOR HISTORIAN. UNABLE AT THIS TIME TO HAVE A CONVERSATION ABOUT MEDICATION HISTORY Allergies Coded Allergies: Amoxicillin (Verified Allergy, Intermediate, Hives , 11/01/13) Sulfa Drugs (Verified Allergy, Mild, Rash, fever, vomiting, 11/01/13) Azithromycin (Verified Allergy, Unknown, 11/18/16) interacts with DUSTIN Ac DO Aug 10, 2018 9:43 am
[2018-08-10] MEDS ORDERED: ACETAMINOPHEN TAB 650MG DOSE (2X325MG) PO PRN (09:45)
[2018-08-10] MEDS ORDERED: chlorproMAZINE INJ 50MG/2ML AMP (J3230) IM ONE (10:00)
[2018-08-10] MEDS: LITHIUM CARBONATE 600 MG CAP PO SCH ×2 (10:38→21:44)
[2018-08-10] MEDS: chlorproMAZINE 25 MG TAB (Q0161) PO SCH ×2 (16:00→21:00)
[2018-08-11] MEDS: LITHIUM CARBONATE 600 MG CAP PO SCH ×2 (09:00→21:00)
[2018-08-11] MEDS: chlorproMAZINE 25 MG TAB (Q0161) PO SCH ×3 (09:31→21:00)
--- NOTE | 2018-08-11 15:27 | MHIPN ---
DATE: 08/11/2018 SUBJECTIVE: The patient is grossly psychotic, responding to internal stimuli, speaking incoherently. OBJECTIVE: She is a 28-year-old female with history of bipolar disorder with psychosis. She has been recently discharged and was re-admitted in four days. MENTAL STATUS EXAMINATION: Appearance is bizarre. Behavior is bizarre. She is cooperative but not able to focus on any topic of discussion. Poor eye contact. Speech is tangential, circumstantial. Thought process: Disorganized. Mood is anxious. Affect is blunted. Denied any suicidal or homicidal thoughts. Insight and judgment are impaired. VITAL SIGNS: Temperature 97.9, pulse is 131, respiratory rate is 20. Her blood pressure is 134/100. Pulse oximetry 97%. DIAGNOSIS: Bipolar disorder with psychosis. PLAN: Continue current medication. Continue individual and group therapy.
[2018-08-11 18:00] VITALS: BP 132/101
[2018-08-12] MEDS ORDERED: LORazepam 2 MG/ML VIAL (J2060) IM ONE (02:30)
[2018-08-12] MEDS ORDERED: diphenhydrAMINE INJ 50MG/ML VIAL (J1200) IM ONE (02:30)
[2018-08-12] MEDS ORDERED: HALOPERIDOL 5 MG/ML VIAL (J1630) IM STA (06:40)
[2018-08-12] MEDS ORDERED: diphenhydrAMINE INJ 50MG/ML VIAL (J1200) IM STA (06:40)
[2018-08-12] MEDS ORDERED: LORazepam 2 MG/ML VIAL (J2060) IM STA (06:40)
[2018-08-12] MEDS: chlorproMAZINE 25 MG TAB (Q0161) PO SCH ×3 (09:00→20:01)
[2018-08-12 09:02] LABS: BASO % 0.4 % (0.0-1.0); EOS # 0.4 10^3/uL (0.0-0.50); EOS % 4.7 % (0.0-3.0); HEMATOCRIT 34.3 % (36.0-47.0); HEMOGLOBIN 11.2 g/dl (12.0-15.5); LYMPH # 2.1 10^3/uL (1.5-4.5); LYMPH % 28.4 % (24.0-44.0); MEAN CORPUSCULAR HEMOGLOBIN 27.3 pg (27.0-33.0); MEAN CORPUSCULAR HGB CONC 32.7 g/dl (32.0-36.5); MEAN CORPUSCULAR VOLUME 83.5 fl (80.0-96.0); MONO # 0.5 10^3/uL (0.0-0.8); NEUTROPHILS # 4.4 10^3/uL (1.8-7.7); NEUTROPHILS % 59.1 % (36.0-66.0); PLATELET COUNT, AUTOMATED 270 10^3/uL (150-450); RED BLOOD COUNT 4.11 10^6/uL (4.00-5.40); WHITE BLOOD COUNT 7.5 10^3/uL (4.0-10.0)
[2018-08-12 09:40] LABS: FREE THYROXINE INDEX 3.2 % (1.3-4.8); THYROID STIMULATING HORMONE 4.52 uIU/ML (0.358-3.740); THYROXINE (T4) 9.5 UG/DL (4.5-12.0)
--- NOTE | 2018-08-12 12:23 | MHIPNPDOC ---
[facility] Progress Note Progress Note DATE OF SERVICE: 08/12/18 HISTORY:Patient is a 28 -year-old , female, with a history of schizoaffective d/o just d/c [facility] week after 1.5 month stay for wang with psychosis who brought to ED yesterday by police after 911 called for pt acting bizarre and paranoid in the community. In the ED pt was agitated and had to be medicated. She appeared psychotic, talking to herself with fight of ideas and tangential thought. Pt utox postive amphetamines. [place] subtherapeutic at 0.20 when it was 0.99 upon d/c last week. Pt seen today and appearing psychotic with fight of ideas, hyperverbal speech, and tangential thoughts. Delusional with pseudocyesis. Pt is a poor historian with poor ability to participate adequately with interview most likely due to methamphetamine/amphetamine use and medication noncompliance. History gathered from previous records. VITAL SIGNS: See below. NEW TEST RESULTS: See below. CURRENT MEDICATIONS: See below. MENTAL STATUS EXAMINATION: Unable to assess currently due to pt sleeping. Previous seen and: General Appearance: well groomed, appears stated age, hospital scrubs/clothing Build: average Demeanor: very figety, other (manic) Eye Contact: average Activity: anxious, other (manic) Behavior: cooperative, impulsive, hyperactive Speech: pressured, normal volume Mood: anxious, other (manic) Mood manic Affect: inappropriate, labile, anxious, disorganized Thought Process: tangential, loose, associative, flight of ideas, racing, derailment Thought Content (Delusions): bizarre, delusions (pseudocyesis, metal plates in body) Thought Content (Other): preoccupied, obsessional, ideas of reference, internal-stimuli, appears paranoid Thought Content (Aggressive): none reported Perception (Hallucinations): auditory Perception (Other): none reported Cognition (Impairment of): attention/concentration, ability to abstract Cognition(Intelligence Est.): average Oriented: Awake, Alert, Oriented times three Insight: poor Judgment: Poor Psychosis: Associations, Abstract Thinking, Psychotic Perceptions DIAGNOSES: Schizoaffective d/o Amphetamine/methamphetamine use d/o ASSESSMENT:Pt coded this morning for psychosis/agitation/attempting to start a fight with another pt. Pt seen in room sleeping and left sleeping due to severe psychosis and agitation. MANAGEMENT PLAN: Continue current plan. [place] level Friday. Medications: invega sustenna 234mg im qmonth next dose 08/30/18 thorazine 50mg tid lithium 600mg bid atarax 25mg q6hr prn anxiety trazodone 50mg qhs prn insomnia ativan 2mg q6hr prn anxiety agitation ZyPREXA ZYDIS 5 mg Q6HP PRN PO anxiety/agitation TIME SPENT: 30 minutes. Vital Signs Vital Signs Date Time Temp Pulse Resp B/P (MAP) Pulse Ox O2 Delivery O2 Flow Rate FiO2 08/11/18 18:00 97.7 118 16 132/101 (111) 08/10/18 08:45 97 08/10/18 05:56 Room Air Laboratory Data 24H Labs Laboratory Tests 2 08/12/18 08:39: Immature Granulocyte % (Auto) 0.4, White Blood Count 7.5, Red Blood Count 4.11, Hemoglobin 11.2L, Hematocrit 34.3L, Mean Corpuscular Volume 83.5, Mean Corpuscular Hemoglobin 27.3, Mean Corpuscular Hemoglobin Concent 32.7, Red Cell Distribution Width 13.9, Platelet Count 270, Neutrophils (%) (Auto) 59.1, Lymphocytes (%) (Auto) 28.4, Monocytes (%) (Auto) 7.0H, Eosinophils (%) (Auto) 4.7H, Basophils (%) (Auto) 0.4, Neutrophils # (Auto) 4.4, Lymphocytes # (Auto) 2.1, Monocytes # (Auto) 0.5, Eosinophils # (Auto) 0.4, Basophils # (Auto) 0.0, Nucleated Red Blood Cells % (auto) 0.0, Thyroid Stimulating Hormone (TSH) 4.520H, Free Thyroxine Index 3.2, Thyroxine (T4) 9.5, Triiodothyronine (T3) Uptake 34 CBC/BMP Laboratory Tests 08/12/18 08:39 Red Blood Count 4.11, Mean Corpuscular Volume 83.5, Mean Corpuscular Hemoglobin 27.3, Mean Corpuscular Hemoglobin Concent 32.7, Red Cell Distribution Width 13.9, Neutrophils (%) (Auto) 59.1, Lymphocytes (%) (Auto) 28.4, Monocytes (%) (Auto) 7.0 H, Eosinophils (%) (Auto) 4.7 H, Basophils (%) (Auto) 0.4, Neutrophils # (Auto) 4.4, Lymphocytes # (Auto) 2.1, Monocytes # (Auto) 0.5, Eosinophils # (Auto) 0.4, Basophils # (Auto) 0.0 Current Medications Current Medications Acetaminophen (Tylenol Tab) 650 mg Q6HP PRN PO HEADACHE or DISCOMFORT; Start 08/10/18 at 06:45 Acetaminophen (Tylenol Tab) 650 mg Q6HP PRN PO HEADACHE or DISCOMFORT; Start 08/10/18 at 09:45; Status UNV Al Hydrox/Mg Hydrox/Simethicone (Mylanta) 30 ml Q4HP PRN PO HEARTBURN/INDIGESTION; Start 08/10/18 at 06:45 Al Hydrox/Mg Hydrox/Simethicone (Mylanta) 30 ml Q4HP PRN PO HEARTBURN/INDIGESTION; Start 08/10/18 at 09:45; Status UNV Chlorpromazine HCl (Thorazine) 25 mg TID PO Last administered on 08/11/18at 21:00; Start 08/10/18 at 09:00; Status Future hold Diphenhydramine HCl (Benadryl) 50 mg STAT STAT IM Last administered on 08/12/18at 06:54; Start 08/12/18 at 06:40; Stop 08/12/18 at 06:44; Status DC Haloperidol (Haldol) 5 mg STAT STAT IM Last administered on 08/12/18at 06:54; Start 08/12/18 at 06:40; Stop 08/12/18 at 06:43; Status DC Home Med (Med Rec Complete!) ASDIRECTED XX ; Start 08/10/18 at 08:00; Stop 08/10/18 at 08:00; Status DC Hydroxyzine HCl (Atarax) 50 mg Q6HP PRN PO anxiety/agitation; Start 08/10/18 at 06:45; Stop 08/10/18 at 09:57; Status DC Hydroxyzine HCl (Atarax) 50 mg TIDP PRN PO ANXIETY/AGITATION; Start 08/10/18 at 09:45 [place] Carbonate ([place] Carbonate) 600 mg BID PO Last administered on 08/10/18at 21:44; Start 08/10/18 at 09:00 Lorazepam (Ativan) 2 mg STAT STAT IM Last administered on 08/12/18at 06:54; Start 08/12/18 at 06:40; Stop 08/12/18 at 06:43; Status DC Magnesium Hydroxide (Milk Of Magnesia) 30 ml DAILYPRN PRN PO CONSTIPATION; Start 08/10/18 at 06:45 Magnesium Hydroxide (Milk Of Magnesia) 30 ml DAILYPRN PRN PO CONSTIPATION; Start 08/10/18 at 09:45; Status UNV Olanzapine (ZyPREXA ZYDIS) 5 mg Q6HP PRN PO anxiety/agitation; Start 1 at 06:45 Paliperidone Palmitate (Invega Sustenna) 234 mg Q30D IM ; Start 08/27/18 at 09:00 Trazodone HCl (Desyrel) 50 mg QHSP PRN PO INSOMNIA; Start 08/10/18 at 06:45 Trazodone HCl (Desyrel) 50 mg QHSP PRN PO INSOMNIA; Start 08/10/18 at 09:45; Status UNV Allergies Coded Allergies: Amoxicillin (Verified Allergy, Intermediate, Hives , 11/01/13) Sulfa Drugs (Verified Allergy, Mild, Rash, fever, vomiting, 11/01/13) Azithromycin (Verified Allergy, Unknown, 11/18/16) interacts with DUSTIN Ac DO Aug 12, 2018 12:23 pm
[2018-08-12] MEDS: LITHIUM CARBONATE 600 MG CAP PO SCH ×2 (13:44→21:00)
--- NOTE | 2018-08-12 16:06 | HPE ---
DATE OF ADMISSION: 08/10/2018 HISTORY OF PRESENT ILLNESS (HPI): Please refer to psychiatric history and examination for further details on this admission. This examination and history is intended for medical issues, which may need treatment, followup or consult on this 28-year-old female who was discharged 5 days ago from the inpatient mental health unit. ALLERGIES: AMOXICILLIN, AZITHROMYCIN, SULFA DRUGS. PAST MEDICAL HISTORY: 1. Bipolar disorder. 2. Schizoaffective disorder. 3. Depression. 4. Post traumatic stress disorder (PTSD). 5. Attention deficit hyperactivity disorder (ADHD). 6. Chronic knee pain. 7. Chronic back pain. PAST SURGICAL HISTORY: Ear graft 1995, tympanostomy tubes. SOCIAL HISTORY: She is single. She lives in [place]. She has a 6-year-old son. She smokes approximately 10 cigarettes per day. Ethyl alcohol (EtOH) none. Recreational drug use none. EKG 04/05/2015, normal sinus rhythm with sinus with sinus arrhythmia. LABORATORY STUDIES: WBC 15.4, hemoglobin 14.9, hematocrit 45.6. Sodium 137, potassium 3.2, chloride 103, CO2 24, BUN 12, creatinine 0.96. TSH was slightly elevated at 5.681. Urine was positive for amphetamines. [place] was less than 0.20. HOME MEDICATIONS: - chlorpromazine 25 mg by mouth three times a day - hydroxyzine 50 mg by mouth three times a day - lithium 600 mg by mouth twice a day - Invega Sustenna 234 mg intramuscular monthly - trazodone 50 mg by mouth nightly as needed for sleep 10 systems review was done. Patient had no complaints at this time. PHYSICAL EXAMINATION: 28-year-old female, in no acute distress. Height 63 inches. Weight 67.7 kg. Body mass index (BMI) 26.4. Patient is currently alert and oriented. Pupils equal and reactive to light. Extraocular movements (EOMS) intact. Cornea and sclerae clear. Conjunctiva is normal. No facial asymmetry. Pharynx, tongue and gums pink and moist. Tongue is midline. Neck is supple, without lymphadenopathy. No thyromegaly. No goiter. Carotids 2+ without bruits. Chest clear to auscultation, without wheeze or retraction. Heart is regular. Abdomen benign. Bowel sounds positive. Genitourinary ()/rectal not done. Extremities show equal strength, full range of motion. No cyanosis, clubbing or edema. Peripheral pulse equal and palpable bilaterally. Skin is warm and dry. IMPRESSION/PLAN: 1. Leukocytosis. No signs or symptoms of infection. It may be from agitation. Will recheck in the a.m. 2. Abnormal thyroid-stimulating hormone (TSH). Will get a thyroid profile. 3. Chronic knee and back pain. Tylenol as needed. 4. No acute medical issues.
[2018-08-13 06:29] VITALS: BP 122/82
[2018-08-13] MEDS: chlorproMAZINE 25 MG TAB (Q0161) PO SCH ×3 (08:35→22:35)
--- NOTE | 2018-08-13 08:54 | MHIPNPDOC ---
[facility] Progress Note Progress Note DATE OF SERVICE: 08/13/18 HISTORY: Patient is a 28 -year-old , female, with a history of schizoaffective d/o just d/c [facility] last week after 1.5 month stay for wang with psychosis who brought to ED yesterday by police after 911 called for pt acting bizarre and paranoid in the community. In the ED pt was agitated and had to be medicated. She appeared psychotic, talking to herself with fight of ideas and tangential thought. Pt utox postive amphetamines. [place] subtherapeutic at 0.20 when it was 0.99 upon d/c last week. Pt seen today and appearing psychotic with fight of ideas, hyperverbal speech, and tangential thoughts. Delusional with pseudocyesis. Pt is a poor historian with poor ability to participate adequately with interview most likely due to methamphetamine/amphetamine use and medication noncompliance. History gathered from previous records. VITAL SIGNS: See below. NEW TEST RESULTS: See below. CURRENT MEDICATIONS: See below. MENTAL STATUS EXAMINATION: General Appearance: bizarre/messy hair, disheveled, wearing 3-4 t-shirts, appears stated age, hospital scrubs/clothing Build: average Demeanor: very fidgety, other (manic) Eye Contact: average Activity: anxious, other (manic) Behavior: cooperative, impulsive, hyperactive Speech: pressured, normal volume Mood: anxious, other (manic) Mood manic Affect: inappropriate, labile, anxious, disorganized Thought Process: tangential, loose, associative, flight of ideas, racing, derailment Thought Content (Delusions): bizarre, delusions (pseudocyesis, metal plates in body) Thought Content (Other): preoccupied, obsessional, ideas of reference, internal-stimuli, appears paranoid Thought Content (Aggressive): none reported Perception (Hallucinations): auditory Perception (Other): none reported Cognition (Impairment of): attention/concentration, ability to abstract Cognition(Intelligence Est.): average Oriented: Awake, Alert, Oriented times three Insight: poor Judgment: Poor Psychosis: Associations, Abstract Thinking, Psychotic Perceptions DIAGNOSES: Schizoaffective d/o Amphetamine/methamphetamine use d/o ASSESSMENT:No codes thru the night. Pt seen and hyperverbal, tangential, talking about some arely yelling at her and then some arely hitting her, calling for someone named "Christian" and saying "where are you at?" Not making sense. Hair is very bizarre and messy. Is manic with psychosis. Delusions of pseudocyesis. She is compliant with her medication. MANAGEMENT PLAN: Continue current plan. [place] level Friday. Medications: invega sustenna 234mg im qmonth next dose 08/30/18 thorazine 50mg tid lithium 600mg bid atarax 25mg q6hr prn anxiety trazodone 50mg qhs prn insomnia ativan 2mg q6hr prn anxiety agitation ZyPREXA ZYDIS 5 mg Q6HP PRN PO anxiety/agitation TIME SPENT: 30 minutes. Vital Signs Vital Signs Date Time Temp Pulse Resp B/P (MAP) Pulse Ox O2 Delivery O2 Flow Rate FiO2 08/13/18 06:29 97.5 107 20 122/82 (95) Room Air 08/10/18 08:45 97 Current Medications Current Medications Acetaminophen (Tylenol Tab) 650 mg Q6HP PRN PO HEADACHE or DISCOMFORT; Start 08/10/18 at 06:45 Acetaminophen (Tylenol Tab) 650 mg Q6HP PRN PO HEADACHE or DISCOMFORT; Start 08/10/18 at 09:45; Status UNV Al Hydrox/Mg Hydrox/Simethicone (Mylanta) 30 ml Q4HP PRN PO HE ARTBURN/INDIGESTION; Start 08/10/18 at 06:45 Al Hydrox/Mg Hydrox/Simethicone (Mylanta) 30 ml Q4HP PRN PO HEARTBURN/INDIGESTION; Start 08/10/18 at 09:45; Status UNV Chlorpromazine HCl (Thorazine) 25 mg TID PO Last administered on 08/11/18at 21:00; Start 08/10/18 at 09:00; Stop 08/12/18 at 12:25; Status DC Chlorpromazine HCl (Thorazine) 50 mg TID PO Last administered on 08/13/18at 08:35; Start 08/12/18 at 16:00 Diphenhydramine HCl (Benadryl) 50 mg STAT STAT IM Last administered on 08/12/18at 06:54; Start 08/12/18 at 06:40; Stop 08/12/18 at 06:44; Status DC Haloperidol (Haldol) 5 mg STAT STAT IM Last administered on 08/12/18at 06:54; Start 08/12/18 at 06:40; Stop 08/12/18 at 06:43; Status DC Home Med (Med Rec Complete!) ASDIRECTED XX ; Start 08/10/18 at 08:00; Stop 08/10/18 at 08:00; Status DC Hydroxyzine HCl (Atarax) 50 mg Q6HP PRN PO anxiety/agitation; Start 08/10/18 at 06:45; Stop 08/10/18 at 09:57; Status DC Hydroxyzine HCl (Atarax) 50 mg TIDP PRN PO ANXIETY/AGITATION; Start 08/10/18 at 09:45 [place] Carbonate ([place] Carbonate) 600 mg BID PO Last administered on 08/12/18at 13:44; Start 08/10/18 at 09:00 Lorazepam (Ativan) 2 mg STAT STAT IM Last administered on 08/12/18at 06:54; Start 08/12/18 at 06:40; Stop 08/12/18 at 06:43; Status DC Magnesium Hydroxide (Milk Of Magnesia) 30 ml DAILYPRN PRN PO CONSTIPATION; Start 08/10/18 at 06:45 Magnesium Hydroxide (Milk Of Magnesia) 30 ml DAILYPRN PRN PO CONSTIPATION; Start 08/10/18 at 09:45; Status UNV Olanzapine (ZyPREXA ZYDIS) 5 mg Q6HP PRN PO anxiety/agitation; Start 08/10/18 at 06:45 Paliperidone Palmitate (Invega Sustenna) 234 mg Q30D IM ; Start 08/27/18 at 09:00 Trazodone HCl (Desyrel) 50 mg QHSP PRN PO INSOMNIA; Start 08/10/18 at 06:45 Trazodone HCl (Desyrel) 50 mg QHSP PRN PO INSOMNIA; Start 08/10/18 at 09:45; Status UNV Allergies Coded Allergies: Amoxicillin (Verified Allergy, Intermediate, Hives , 11/01/13) Sulfa Drugs (Verified Allergy, Mild, Rash, fever, vomiting, 11/01/13) Azithromycin (Verified Allergy, Unknown, 11/18/16) interacts with DUSTIN Ac 3, 2019 8:54 am
[2018-08-13] MEDS: LITHIUM CARBONATE 600 MG CAP PO SCH ×2 (09:00→21:00)
[2018-08-13 18:00] VITALS: BP 146/90
[2018-08-14] MEDS: LITHIUM CARBONATE 600 MG CAP PO SCH ×3 (09:00→21:50)
[2018-08-14] MEDS: chlorproMAZINE 25 MG TAB (Q0161) PO SCH ×3 (09:01→21:50)
--- NOTE | 2018-08-14 09:36 | MHIPNPDOC ---
[facility] Progress Note Progress Note DATE OF SERVICE: 08/14/18 HISTORY: Patient is a 28 -year-old , female, with a history of schizoaffective d/o just d/[facility] week after 1.5 month stay for wnag with psychosis who brought to ED yesterday by police after 911 called for pt acting bizarre and paranoid in the community. In the ED pt was agitated and had to be medicated. She appeared psychotic, talking to herself with fight of ideas and tangential thought. Pt utox postive amphetamines. [place] subtherapeutic at 0.20 when it was 0.99 upon d/c last week. Pt seen today and appearing psychotic with fight of ideas, hyperverbal speech, and tangential thoughts. Delusional with pseudocyesis. Pt is a poor historian with poor ability to participate adequately with interview most likely due to methamphetamine/amphetamine use and medication noncompliance. History gathered from previous records. VITAL SIGNS: See below. NEW TEST RESULTS: See below. CURRENT MEDICATIONS: See below. MENTAL STATUS EXAMINATION: General Appearance: combed hair, disheveled, wearing 3-4 t-shirts, appears stated age, hospital scrubs/clothing Build: average Demeanor: cooperative Eye Contact: average Activity: manic at times Behavior: cooperative, occasionally impulsive, hyperactive Speech: less pressured, normal volume Mood: fatigued after taking medications Mood "I'm going to lay down" Affect: inappropriate, labile, anxious, disorganized Thought Process: less tangential, loose, associative, flight of ideas, racing, derailment Thought Content (Delusions): less bizarre, delusions (denies pseudocyesis, metal plates in body) Thought Content (Other): less preoccupied, obsessional, ideas of reference, internal-stimuli, appears paranoid Thought Content (Aggressive): none reported Perception (Hallucinations): auditory Perception (Other): none reported Cognition (Impairment of): attention/concentration, ability to abstract Cognition(Intelligence Est.): average Oriented: Awake, Alert, Oriented times three Insight: poor Judgment: Poor Psychosis: Associations, Abstract Thinking, Psychotic Perceptions DIAGNOSES: Schizoaffective d/o Amphetamine/methamphetamine use d/o ASSESSMENT:No codes thru the night. Pt seen and less hyperverbal, tangential. Attention is still poor. Took her thorazine this morning and states now she's going to clean her room or lay down. Hair is combed. Is less manic with less psychosis. Denies delusions of pseudocyesis. She is only partially compliant with her thorazine and if continues will proceed with TOO. Will refer pt to [facility] for long term care pharmacist psychiatric stabilization . MANAGEMENT PLAN: Continue current plan. [place] level Friday. Medications: invega sustenna 234mg im qmonth next dose 08/30/18 thorazine 100mg tid lithium 600mg bid atarax 25mg q6hr prn anxiety trazodone 50mg qhs prn insomnia ativan 2mg q6hr prn anxiety agitation ZyPREXA ZYDIS 5 mg Q6HP PRN PO anxiety/agitation TIME SPENT: 30 minutes. Vital Signs Vital Signs Date Time Temp Pulse Resp B/P (MAP) Pulse Ox O2 Delivery O2 Flow Rate FiO2 08/13/18 18:00 97.6 103 18 146/90 (108) 08/13/18 06:29 Room Air 08/10/18 08:45 97 Current Medications Current Medications Acetaminophen (Tylenol Tab) 650 mg Q6HP PRN PO HEADACHE or DISCOMFORT; Start 08/10/18 at 06:45 Acetaminophen (Tylenol Tab) 650 mg Q6HP PRN PO HEADACHE or DISCOMFORT; Start 08/10/18 at 09:45; Status UNV Al Hydrox/Mg Hydrox/Simethicone (Mylanta) 30 ml Q4HP PRN PO HEARTBURN/INDIGESTION; Start 08/10/18 at 06:45 Al Hydrox/Mg Hydrox/Simethicone (Mylanta) 30 ml Q4HP PRN PO HEARTBURN/INDIGESTION; Start 08/10/18 at 09:45; Status UNV Chlorpromazine HCl (Thorazine) 25 mg TID PO Last administered on 08/11/18at 21:00; Start 08/10/18 at 09:00; Stop 08/12/18 at 12:25; Status DC Chlorpromazine HCl (Thorazine) 50 mg TID PO Last administered on 08/13/18at 08:35; Start 08/12/18 at 16:00; Stop 08/13/18 at 08:56; Status DC Chlorpromazine HCl (Thorazine) 100 mg TID PO Last administered on 08/14/18at 09:01; Start 08/13/18 at 16:00 Diphenhydramine HCl (Benadryl) 50 mg STAT STAT IM Last administered on 08/12/18at 06:54; Start 08/12/18 at 06:40; Stop 08/12/18 at 06:44; Status DC Haloperidol (Haldol) 5 mg STAT STAT IM Last administered on 08/12/18at 06:54; Start 08/12/18 at 06:40; Stop 08/12/18 at 06:43; Status DC Home Med (Med Rec Complete!) ASDIRECTED XX ; Start 08/10/18 at 08:00; Stop at 08:00; Status DC Hydroxyzine HCl (Atarax) 50 mg Q6HP PRN PO anxiety/agitation; Start 08/10/18 at 06:45; Stop 08/10/18 at 09:57; Status DC Hydroxyzine HCl (Atarax) 50 mg TIDP PRN PO ANXIETY/AGITATION; Start 08/10/18 at 09:45 [place] Carbonate ([place] Carbonate) 600 mg BID PO Last administered on 08/12/18at 13:44; Start 08/10/18 at 09:00 Lorazepam (Ativan) 2 mg STAT STAT IM Last administered on 08/12/18at 06:54; Start 08/12/18 at 06:40; Stop 08/12/18 at 06:43; Status DC Magnesium Hydroxide (Milk Of Magnesia) 30 ml DAILYPRN PRN PO CONSTIPATION; Start 08/10/18 at 06:45 Magnesium Hydroxide (Milk Of Magnesia) 30 ml DAILYPRN PRN PO CONSTIPATION; Start 08/10/18 at 09:45; Status UNV Olanzapine (ZyPREXA ZYDIS) 5 mg Q6HP PRN PO anxiety/agitation; Start 08/10/18 at 06:45 Paliperidone Palmitate (Invega Sustenna) 234 mg Q30D IM ; Start 08/27/18 at 09:00 Trazodone HCl (Desyrel) 50 mg QHSP PRN PO INSOMNIA; Start 08/10/18 at 06:45 Trazodone HCl (Desyrel) 50 mg QHSP PRN PO INSOMNIA; Start 08/10/18 at 09:45; Status UNV Allergies Coded Allergies: Amoxicillin (Verified Allergy, Intermediate, Hives , 11/01/13) Sulfa Drugs (Verified Allergy, Mild, Rash, fever, vomiting, 11/01/13) Azithromycin (Verified Allergy, Unknown, 11/18/16) interacts with DUSTIN Ac DO Aug 14, 2018 9:36 am
[2018-08-15] MEDS: chlorproMAZINE 25 MG TAB (Q0161) PO SCH ×4 (07:41→21:00)
[2018-08-15] MEDS: LITHIUM CARBONATE 600 MG CAP PO SCH ×2 (09:00→23:53)
[2018-08-16] VITALS (7 sets, daily range): BP systolic 130–145; BP diastolic 74–94
[2018-08-16] MEDS ORDERED: chlorproMAZINE INJ 50MG/2ML AMP (J3230) IM STA (04:14)
[2018-08-16] MEDS ORDERED: LORazepam 2 MG/ML VIAL (J2060) IM STA ×2 (04:14→04:45)
--- NOTE | 2018-08-16 04:45 | MHIR ---
General Date: Aug 16, 2018 Time Initiated: 04:42 Restraint Documentation Order/Evaluation FACE TO FACE: yes PHYSICIAN ASSESSMENT: yelling and screaming on the unit jumping on her bed REASON FOR RESTRAINT: Patient poses imminent danger of harming self or others: jumping on her bed, slamming doors, urinating on self, taking clothes off in halls DE-ESCALATION INTERVENTIONS ATTEMPTED BEFORE USE OF RESTRAINTS: staff support and redirection [MECHANICAL AND/OR CHEMICAL] RESTRAINTS USED: chemical and mechanical. thorazine 100mg im and ativan 2mg im LENGTH OF TIME ORDERED IN RESTRAINTS: 4 hours WHEN TO DISCONTINUE RESTRAINTS: When the patient is no longer a threat to themselves or others. Post evaluation of restraint due in 24 hours. DUSTIN DINH DO Aug 16, 2018 4:45 am
[2018-08-16] MEDS: LITHIUM CARBONATE 600 MG CAP PO SCH ×2 (10:11→21:00)
[2018-08-16] MEDS ORDERED: LORazepam 2 MG/ML VIAL (J2060) IM ONE (10:30)
[2018-08-16] MEDS ORDERED: chlorproMAZINE INJ 50MG/2ML AMP (J3230) IM ONE (10:30)
[2018-08-16] MEDS: chlorproMAZINE 25 MG TAB (Q0161) PO SCH ×3 (12:20→21:00)
--- NOTE | 2018-08-16 14:43 | MHPR ---
General Date: Aug 16, 2018 Time: 09:00 Post-Restraint Evaluation THE OUTCOME OF THE RESTRAINT: good EFFECTIVENESS OF THE RESTRAINT: Mechanical and/or chemical: Positive. ANY EVIDENCE THAT THE PATIENT WAS AFFECTED EMOTIONALLY: no ANY NEED FOR COUNSELING/ASSISTANCE: no CHANGES IN TREATMENT PLAN: continue current treatment, meds, staff support RECOMMENDATIONS FOR FUTURE INCIDENTS: continue current practises DUSTIN DINH DO Aug 16, 2018 2:43 pm
[2018-08-16] MEDS: LORazepam 2 MG TAB PO SCH ×2 (16:00→21:00)
[2018-08-17] MEDS: LORazepam 2 MG TAB PO SCH ×4 (09:00→20:51)
[2018-08-17] MEDS ORDERED: **PENDING PPD ENTRY XX SCH (09:00)
[2018-08-17] MEDS: LITHIUM CARBONATE 600 MG CAP PO SCH (09:00)
[2018-08-17] MEDS: chlorproMAZINE 25 MG TAB (Q0161) PO SCH ×4 (09:00→20:51)
[2018-08-17] MEDS ORDERED: chlorproMAZINE INJ 50MG/2ML AMP (J3230) IM ONE ×3 (11:00→20:30)
[2018-08-17] MEDS ORDERED: TUBERCULIN PPD 5 UNITS/0.1 ML ID ONE ×3 (11:00→12:00)
[2018-08-17] MEDS ORDERED: LORazepam 2 MG/ML VIAL (J2060) IM ONE ×3 (11:00→22:30)
--- NOTE | 2018-08-17 11:23 | MHIPNPDOC ---
[facility] Progress Note Progress Note DATE OF SERVICE: 08/17/18 HISTORY: Patient is a 28 -year-old , female, with a history of schizoaffective d/o just d/c [facility] last week after 1.5 month stay for wang with psychosis who brought to ED yesterday by police after 911 called for pt acting bizarre and paranoid in the community. In the ED pt was agitated and had to be medicated. She appeared psychotic, talking to herself with fight of ideas and tangential thought. Pt utox postive amphetamines. [place] subtherapeutic at 0.20 when it was 0.99 upon d/c last week. Pt seen today and appearing psychotic with fight of ideas, hyperverbal speech, and tangential thoughts. Delusional with pseudocyesis. Pt is a poor historian with poor ability to participate adequately with interview most likely due to methamphetamine/amphetamine use and medication noncompliance. History gathered from previous records. VITAL SIGNS: See below. NEW TEST RESULTS: lithium level 0.29 not therapeutic due to lack of complete compliance with oral lithium CURRENT MEDICATIONS: See below. MENTAL STATUS EXAMINATION: General Appearance: bizarre/messy hair, disheveled, wearing 3-4 t-shirts, appears stated age, hospital scrubs/clothing Build: average Demeanor: cooperative Eye Contact: average Activity: manic at times Behavior: cooperative, occasionally impulsive, hyperactive Speech: pressured, variable volume, nonsensical at times Mood: manic/bizarre/fighting off sleep/reactive Mood not fully making sense and unable to answer question logically Affect: inappropriate, labile, anxious, disorganized Thought Process: tangential, loose, associative, flight of ideas, racing, derailment Thought Content (Delusions): bizarre, delusions (denies pseudocyesis, metal plates in body) Thought Content (Other): preoccupied, obsessional, ideas of reference, internal-stimuli, appears paranoid Thought Content (Aggressive): none reported Perception (Hallucinations): auditory Perception (Other): none reported Cognition (Impairment of): attention/concentration, ability to abstract Cognition(Intelligence Est.): average Oriented: Awake, Alert, Oriented times three Insight: poor Judgment: Poor Psychosis: Associations, Abstract Thinking, Psychotic Perceptions DIAGNOSES: Schizoaffective d/o Amphetamine/methamphetamine use d/o ASSESSMENT:No codes thru the night. Did code Friday AM at 4am requiring mechanical and chemical restraint as pt screaming and yelling in halls, jumping on bed, slamming doors, urinated on self, taking clothes off in halls. Pt tolerated restraints well and symptoms improved after, no longer agitated/bizarre. Pt seen today and getting easily activated by another pt yelling and screaming in halls requiring that other pt to be coded. Latrice was able to follow staff redirection and calm down. Refusing oral thorazine and ativan but agreeable to IM. Due to lack of full compliance with oral meds will proceed with TOO. Pt seen and continues to be hyperverbal, tangential, delusional, bizarre. Attention is still poor. Hair is bizarre and messing. Pt putting and leaving soap all over her body and hair, attempting to use and put honey in hair for unknown reason. Staff continually aiding pt and proper and completely daily showers. Is manic with psychotic. Denies delusions of pseu docyesis. 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 MANAGEMENT PLAN: Continue current plan. [place] level Friday. Medications: invega sustenna 234mg im qmonth next dose 08/30/18 thorazine 100mg qid lithium 600mg bid atarax 25mg q6hr prn anxiety trazodone 50mg qhs prn insomnia ativan 2mg tid ZyPREXA ZYDIS 5 mg Q6HP PRN PO anxiety/agitation TIME SPENT: 30 minutes. Vital Signs Vital Signs Date Time Temp Pulse Resp B/P (MAP) Pulse Ox O2 Delivery O2 Flow Rate FiO2 08/17/18 06:40 98.1 16 08/16/18 06:55 89 136/74 (94) 08/16/18 05:45 97 Room Air Current Medications Current Medications Acetaminophen (Tylenol Tab) 650 mg Q6HP PRN PO HEADACHE or DISCOMFORT; Start 08/10/18 at 06:45 Acetaminophen (Tylenol Tab) 650 mg Q6HP PRN PO HEADACHE or DISCOMFORT; Start 08/10/18 at 09:45; Status UNV Al Hydrox/Mg Hydrox/Simethicone (Mylanta) 30 ml Q4HP PRN PO HEARTBURN /INDIGESTION; Start 08/10/18 at 06:45 Al Hydrox/Mg Hydrox/Simethicone (Mylanta) 30 ml Q4HP PRN PO HEARTBURN/INDIGESTION; Start 08/10/18 at 09:45; Status UNV Chlorpromazine HCl (Thorazine) 25 mg TID PO Last administered on 08/11/18at 21:00; Start 08/10/18 at 09:00; Stop 08/12/18 at 12:25; Status DC Chlorpromazine HCl (Thorazine) 50 mg TID PO Last administered on 08/13/18at 08:35; Start 08/12/18 at 16:00; Stop 08/13/18 at 08:56; Status DC Chlorpromazine HCl (Thorazine) 100 mg QID PO ; Start 08/16/18 at 13:00 Chlorpromazine HCl (Thorazine) 100 mg STAT STAT IM Last administered on 08/16/18at 04:21; Start 08/16/18 at 04:14; Stop 08/16/18 at 04:16; Status DC Chlorpromazine HCl (Thorazine) 100 mg TID PO Last administered on 08/15/18at 09:52; Start 08/13/18 at 16:00; Stop 08/16/18 at 10:25; Status DC Diphenhydramine HCl (Benadryl) 50 mg STAT STAT IM Last administered on 08/12/18at 06:54; Start 08/12/18 at 06:40; Stop 08/12/18 at 06:44; Status DC Haloperidol (Haldol) 5 mg STAT STAT IM Last administered on 08/12/18at 06:54; Start 08/12/18 at 06:40; Stop 08/12/18 at 06:43; Status DC Home Med (Med Rec Complete!) ASDIRECTED XX ; Start 08/10/18 at 08:00; Stop 08/10/18 at 08:00; Status DC Hydroxyzine HCl (Atarax) 50 mg Q6HP PRN PO anxiety/agitation; Start 08/10/18 at 06:45; Stop 08/10/18 at 09:57; Status DC Hydroxyzine HCl (Atarax) 50 mg TIDP PRN PO ANXIETY/AGITATION; Start 08/10/18 at 09:45 [place] Carbonate ([place] Carbonate) 600 mg BID PO Last administered on 08/16/18at 10:11; Start 08/10/18 at 09:00 Lorazepam (Ativan) 2 mg STAT STAT IM Last administered on 08/12/18at 06:54; Start 08/12/18 at 06:40; Stop 08/12/18 at 06:43; Status DC Lorazepam (Ativan) 2 mg STAT STAT IM Last administered on 08/16/18at 04:21; Start 08/16/18 at 04:14; Stop 08/16/18 at 04:16; Status DC Lorazepam (Ativan) 2 mg STAT STAT IM Last administered on 08/16/18at 04:53; Start 08/16/18 at 04:45; Stop 08/16/18 at 04:47; Status DC Lorazepam (Ativan) 2 mg TID PO ; Start 08/16/18 at 16:00 Magnesium Hydroxide (Milk Of Magnesia) 30 ml DAILYPRN PRN PO CONSTIPATION; Start 08/10/18 at 06:45 Magnesium Hydroxide (Milk Of Magnesia) 30 ml DAILYPRN PRN PO CONSTIPATION; Start 08/10/18 at 09:45; Status UNV Non-Formulary Medication ( See Comment Field Below ) SEE COMMENTS SECTION 1T@10 XX ; Start 08/19/18 at 10:00; Stop 08/19/18 at 10:00; Status DC Non-Formulary Medication ( See Comment Field Below ) SEE LABEL COMMENTS DAILY XX ; Start 08/17/18 at 09:00 Olanzapine (ZyPREXA ZYDIS) 5 mg Q6HP PRN PO anxiety/agitation; Start 08/10/18 at 06:45 Paliperidone Palmitate (Invega Sustenna) 234 mg Q30D IM ; Start 08/27/18 at 09:00 Trazodone HCl (Desyrel) 50 mg QHSP PRN PO INSOMNIA; Start 08/10/18 at 06:45 Trazodone HCl (Desyrel) 50 mg QHSP PRN PO INSOMNIA; Start 08/10/18 at 09:45; Status UNV Allergies Coded Allergies: Amoxicillin (Verified Allergy, Intermediate, Hives , 11/01/13) Sulfa Drugs (Verified Allergy, Mild, Rash, fever, vomiting, 11/01/13) Azithromycin (Verified Allergy, Unknown, 11/18/16) interacts with DUSTIN Ac DO Aug 17, 2018 11:23 am
[2018-08-17 18:00] VITALS: BP 126/86
[2018-08-17] MEDS: LITHIUM CARBONATE 300MG/5ML(8MEQ/5ML)ORAL SOLUTION UDC PO SCH (19:48)
[2018-08-17] MEDS ORDERED: diphenhydrAMINE INJ 50MG/ML VIAL (J1200) IM ONE (22:30)
[2018-08-18] MEDS ORDERED: LORazepam 2 MG/ML VIAL (J2060) IM ONE ×2 (01:00→16:15)
[2018-08-18] MEDS ORDERED: diphenhydrAMINE INJ 50MG/ML VIAL (J1200) IM ONE (01:00)
[2018-08-18] MEDS ORDERED: LORazepam 2 MG/ML VIAL (J2060) IV ONE (09:45)
[2018-08-18] MEDS ORDERED: OLANZapine INTRAMUSCULAR 10 MG VIAL (S0166) IM ONE (09:45)
[2018-08-18] MEDS: LORazepam 2 MG TAB PO SCH ×3 (09:52→21:00)
[2018-08-18] MEDS: chlorproMAZINE 25 MG TAB (Q0161) PO SCH ×4 (09:53→21:00)
[2018-08-18] MEDS: LITHIUM CARBONATE 300MG/5ML(8MEQ/5ML)ORAL SOLUTION UDC PO SCH ×2 (09:53→23:03)
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
[2018-08-18] MEDS ORDERED: HALOPERIDOL 5 MG/ML VIAL (J1630) IM ONE (16:15)
[2018-08-18 18:00] VITALS: BP 138/82
--- NOTE | 2018-08-18 18:48 | NUR ---
Seen for confirmatory consult, see Certificate of Physician Examination
[2018-08-18] MEDS ORDERED: HALOPERIDOL 2 MG TAB PO ONE (22:45)
[2018-08-18] MEDS ORDERED: diphenhydrAMINE 50 MG CAP PO ONE (23:30)
[2018-08-19] MEDS: ACETAMINOPHEN TAB 650MG DOSE (2X325MG) PO PRN ×2 (05:43→18:17)
[2018-08-19 06:23] VITALS: BP 131/82
[2018-08-19] MEDS: LORazepam 2 MG TAB PO SCH ×3 (06:48→20:46)
[2018-08-19 07:11] LABS: BASO % 0.2 % (0.0-1.0); EOS # 0.3 10^3/uL (0.0-0.50); EOS % 3.7 % (0.0-3.0); HEMATOCRIT 36.1 % (36.0-47.0); HEMOGLOBIN 11.9 g/dl (12.0-15.5); LYMPH # 2.6 10^3/uL (1.5-4.5); LYMPH % 30.1 % (24.0-44.0); MEAN CORPUSCULAR HEMOGLOBIN 27.2 pg (27.0-33.0); MEAN CORPUSCULAR VOLUME 82.6 fl (80.0-96.0); MONO # 0.6 10^3/uL (0.0-0.8); MONO % 6.8 % (0.0-5.0); NEUTROPHILS # 5.2 10^3/uL (1.8-7.7); PLATELET COUNT, AUTOMATED 365 10^3/uL (150-450); RED BLOOD COUNT 4.37 10^6/uL (4.00-5.40); WHITE BLOOD COUNT 8.7 10^3/uL (4.0-10.0)
[2018-08-19 07:43] LABS: ALBUMIN 3.1 GM/DL (3.2-5.2); ALT/SGPT 28 U/L (12-78); BILIRUBIN,TOTAL 0.3 MG/DL (0.2-1.0); BLOOD UREA NITROGEN 14 MG/DL (7-18); CALCIUM LEVEL 8.7 MG/DL (8.5-10.1); CARBON DIOXIDE LEVEL 23 MEQ/L (21-32); CHLORIDE LEVEL 105 MEQ/L (98-107); CPK CREATINE PHOSPHOKINASE 627 U/L (26-192); CREATININE FOR GFR 0.85 MG/DL (0.55-1.30); GLOMERULAR FILTRATION RATE > 60.0 (>60); GLUCOSE, FASTING 111 MG/DL (70-100); POTASSIUM SERUM 4.1 MEQ/L (3.5-5.1); SODIUM LEVEL 137 MEQ/L (136-145); TOTAL PROTEIN 6.6 GM/DL (6.4-8.2)
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
[2018-08-19] MEDS: HALOPERIDOL 10 MG TAB PO SCH ×3 (09:00→21:00)
[2018-08-19] MEDS ORDERED: PPD DOCUMENTATION ENTRY MISC XX SCH (10:00)
[2018-08-19] MEDS: diphenhydrAMINE 50 MG CAP PO SCH ×3 (10:56→20:46)
[2018-08-19] MEDS: LITHIUM CARBONATE 300MG/5ML(8MEQ/5ML)ORAL SOLUTION UDC PO SCH ×2 (10:56→20:46)
[2018-08-19] MEDS ORDERED: PPD DOCUMENTATION ENTRY MISC XX ONE ×2 (11:00→12:00)
[2018-08-19] MEDS ORDERED: diphenhydrAMINE INJ 50MG/ML VIAL (J1200) IM ONE (13:00)
[2018-08-19] MEDS ORDERED: HALOPERIDOL 10 MG TAB PO ONE (13:00)
[2018-08-19] MEDS ORDERED: HALOPERIDOL 5 MG/ML VIAL (J1630) IM ONE (14:00)
[2018-08-19] MEDS ORDERED: HALOPERIDOL 5 MG/ML VIAL (J1630) IM STA (14:24)
[2018-08-19] MEDS ORDERED: diphenhydrAMINE INJ 50MG/ML VIAL (J1200) IM STA (14:24)
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
[2018-08-19 14:45] VITALS: BP 145/90
[2018-08-19 15:00] VITALS: BP 187/96
[2018-08-19 15:15] VITALS: BP 172/107
[2018-08-19 18:00] VITALS: BP 127/88
[2018-08-20] VITALS (11 sets, daily range): BP systolic 133–181; BP diastolic 81–114
[2018-08-20] MEDS: ACETAMINOPHEN TAB 650MG DOSE (2X325MG) PO PRN (03:40)
[2018-08-20] MEDS: LITHIUM CARBONATE 300MG/5ML(8MEQ/5ML)ORAL SOLUTION UDC PO SCH ×2 (08:36→20:46)
[2018-08-20] MEDS: diphenhydrAMINE 50 MG CAP PO SCH ×3 (09:00→21:00)
[2018-08-20] MEDS: LORazepam 2 MG TAB PO SCH ×3 (09:00→20:42)
[2018-08-20] MEDS: HALOPERIDOL 10 MG TAB PO SCH ×3 (09:00→20:42)
[2018-08-20] MEDS ORDERED: diphenhydrAMINE INJ 50MG/ML VIAL (J1200) IM STA (09:28)
[2018-08-20] MEDS ORDERED: OLANZapine INTRAMUSCULAR 10 MG VIAL (S0166) IM STA (09:28)
[2018-08-20] MEDS ORDERED: LORazepam 2 MG/ML VIAL (J2060) IM STA (09:28)
--- NOTE | 2018-08-20 09:41 | MHIPNPDOC ---
[facility] Progress Note Progress Note DATE OF SERVICE: 08/20/18 HISTORY: Patient is a 28 -year-old , female, with a history of schizoaffective d/o just d/c [facility] last week after 1.5 month stay for wang with psychosis who brought to ED yesterday by police after 911 called for pt acting bizarre and paranoid in the community. In the ED pt was agitated and had to be medicated. She appeared psychotic, talking to herself with fight of ideas and tangential thought. Pt utox postive amphetamines. [place] subtherapeutic at 0.20 when it was 0.99 upon d/c last week. Pt seen today and appearing psychotic with fight of ideas, hyperverbal speech, and tangential thoughts. Delusional with pseudocyesis. Pt is a poor historian with poor ability to participate adequately with interview most likely due to methamphetamine/amphetamine use and medication noncompliance. History gathered from previous records. VITAL SIGNS: See below. NEW TEST RESULTS: lithium level 0.29 CK 629, lfts and cbc wnl CURRENT MEDICATIONS: See below. MENTAL STATUS EXAMINATION: General Appearance: bizarre/messy hair, disheveled, wearing 3-4 t-shirts, appears stated age, hospital scrubs/clothing Build: average Demeanor: cooperative Eye Contact: average Activity: manic at times Behavior: cooperative, occasionally impulsive, hyperactive Speech: pressured, variable volume, nonsensical at times Mood: manic/bizarre/fighting off sleep/reactive Mood not fully making sense and unable to answer question logically Affect: inappropriate, labile, anxious, disorganized Thought Process: tangential, loose, associative, flight of ideas, racing, derailment Thought Content (Delusions): bizarre, delusions (denies pseudocyesis, metal plates in body) Thought Content (Other): preoccupied, obsessional, ideas of reference, internal-stimuli, appears paranoid Thought Content (Aggressive): none reported Perception (Hallucinations): auditory Perception (Other): none reported Cognition (Impairment of): attention/concentration, ability to abstract Cognition(Intelligence Est.): average Oriented: Awake, Alert, Oriented times three Insight: poor Judgment: Poor Psychosis: Associations, Abstract Thinking, Psychotic Perceptions DIAGNOSES: Schizoaffective d/o Amphetamine/methamphetamine use d/o ASSESSMENT:Pt had no codes thru out the night, but had code yesterday for manic/agitated behavior, hitting nurse. Mechanical hold and release after chemical restraint given. Pt tolerated well. Took lithium this am but refusing haldol saying she's (pseudocyesis), going to , "has the right to " Code called for mechanical and chemical restraint that pt was nonviolent thru. Gave zyprexa im instead of haldol this time with ativan and benadryl and will see if this concktail is more beneficial as haldol doesn't appear very affective to reduce wang, psychosis, impulsive lability/agitation. Pt is manic, delusional, paranoid, and is having a hard time following redirection. Will see if must proceed to TOO in future as pt only partially compliant on meds and needs a lot of staff support/continuous redirection to finally take them. Pt continues to be hyperverbal, tangential, delusional, bizarre. Attention is still poor. Hair is bizarre and messing. Pt putting and leaving soap all over her body, face, and hair, attempting to use and put honey in hair for unknown reason, yogurt on face she states as a mask. Staff continually aiding pt and proper and completely daily showers. Is manic and psychotic. Has delusions of pseudocyesis. Haldol doesn't appear very effective so will d/c and attempt Prolixin 10mg bid to see if more beneficial. Will refer pt to [facility] for detention psychiatric stabilization . MANAGEMENT PLAN: Continue current plan. d/c oral thorazine due to elevated CK and start haldol 10mg tid Medications: invega sustenna 234mg im qmonth next dose 08/30/18 Prolixin 10mg tid benadryl 50mg tid lithium 600mg bid atarax 25mg q6hr prn anxiety trazodone 50mg qhs prn insomnia ativan 2mg tid ZyPREXA ZYDIS 5 mg Q6HP PRN PO anxiety/agitation TIME SPENT: 30 minutes. Vital Signs Vital Signs Date Time Temp Pulse Resp B/P (MAP) Pulse Ox O2 Delivery O2 Flow Rate FiO2 08/20/18 07:17 98.4 18 08/19/18 18:00 88 127/88 (101) 08/19/18 15:15 Room Air 08/16/18 05:45 97 Current Medications Current Medications Acetaminophen (Tylenol Tab) 650 mg Q6HP PRN PO HEADACHE or DISCOMFORT Last administered on 08/20/18at 03:40; Start 08/10/18 at 06:45 Acetaminophen (Tylenol Tab) 650 mg Q6HP PRN PO HEADACHE or DISCOMFORT; Start 08/10/18 at 09:45; Status UNV Al Hydrox/Mg Hydrox/Simethicone (Mylanta) 30 ml Q4HP PRN PO HEARTBURN/INDIGESTION; Start 08/10/18 at 06:45 Al Hydrox/Mg Hydrox/Simethicone (Mylanta) 30 ml Q4HP PRN PO HEARTBURN/INDIGESTION; Start 08/10/18 at 09:45; Status UNV Chlorpromazine HCl (Thorazine) 25 mg TID PO Last administered on 08/11/18at 21:00; Start 08/10/18 at 09:00; Stop 08/12/18 at 12:25; Status DC Chlorpromazine HCl (Thorazine) 50 mg TID PO Last administered on 08/13/18at 08:35; Start 08/12/18 at 16:00; Stop 08/13/18 at 08:56; Status DC Chlorpromazine HCl (Thorazine) 100 mg QID PO Last administered on 08/18/18at 12:55; Start 08/16/18 at 13:00; Stop 08/19/18 at 10:01; Status DC Chlorpromazine HCl (Thorazine) 100 mg STAT STAT IM Last administered on 08/16/18at 04:21; Start 08/16/18 at 04:14; Stop 08/16/18 at 04:16; Status DC Chlorpromazine HCl (Thorazine) 100 mg TID PO Last administered on 08/15/18at 09:52; Start 08/13/18 at 16:00; Stop 08/16/18 at 10:25; Status DC Diphenhydramine HCl (Benadryl) 50 mg STAT STAT IM Last administered on 08/12/18at 06:54; Start 08/12/18 at 06:40; Stop 08/12/18 at 06:44; Status DC Diphenhydramine HCl (Benadryl) 50 mg TID PO Last administered on 08/19/18 20:46; Start 08/19/18 at 09:00 Diphenhydramine HCl (Benadryl) 100 mg STAT STAT IM Last administered on 08/19/18 14:30; Start 08/19/18 at 14:24; Stop 08/19/18 at 14:29; Status DC Haloperidol (Haldol) 5 mg STAT STAT IM Last administered on 08/12/18 06:54; Start 08/12/18 at 06:40; Stop 08/12/18 at 06:43; Status DC Haloperidol (Haldol) 10 mg STAT STAT IM Last administered on 08/19/18 14:31; Start 08/19/18 at 14:24; Stop 08/19/18 at 14:29; Status DC Haloperidol (Haldol) 10 mg TID PO Last administered on 08/19/18 15:51; Start 08/19/18 at 09:00 Home Med (Med Rec Complete!) ASDIRECTED XX ; Start 08/10/18 at 08:00; Stop 08/10/18 at 08:00; Status DC Hydroxyzine HCl (Atarax) 50 mg Q6HP PRN PO anxiety/agitation; Start 08/10/18 at 06:45; Stop 08/10/18 at 09:57; Status DC Hydroxyzine HCl (Atarax) 50 mg TIDP PRN PO ANXIETY/AGITATION; Start 08/10/18 at 09:45 [place] Carbonate (Eskalith Oral Solution) 600 mg BID PO Last administered on 08/20/18at 08:36; Start 08/17/18 at 21:00 [place] Carbonate ([place] Carbonate) 600 mg BID PO Last administered on 08/16/18 10:11; Start 08/10/18 at 09:00; Stop 08/17/18 at 13:42; Status DC Lorazepam (Ativan) 2 mg STAT STAT IM Last administered on 08/12/18 06:54; Start 08/12/18 at 06:40; Stop 08/12/18 at 06:43; Status DC Lorazepam (Ativan) 2 mg STAT STAT IM Last administered on 08/16/18 04:21; Start 08/16/18 at 04:14; Stop 08/16/18 at 04:16; Status DC Lorazepam (Ativan) 2 mg STAT STAT IM Last administered on 08/16/18at 04:53; Start 08/16/18 at 04:45; Stop 08/16/18 at 04:47; Status DC Lorazepam (Ativan) 2 mg TID PO Last administered on 08/19/18at 20:46; Start 08/16/18 at 16:00 Magnesium Hydroxide (Milk Of Magnesia) 30 ml DAILYPRN PRN PO CONSTIPATION; Start 08/10/18 at 06:45 Magnesium Hydroxide (Milk Of Magnesia) 30 ml DAILYPRN PRN PO CONSTIPATION; Start 08/10/18 at 09:45; Status UNV Non-Formulary Medication ( See Comment Field Below ) SEE COMMENTS SECTION 1T@10 XX ; Start 08/19/18 at 10:00; Stop 08/19/18 at 10:00; Status DC Non-Formulary Medication ( See Comment Field Below ) SEE LABEL COMMENTS DAILY XX ; Start 08/17/18 at 09:00; Stop 08/17/18 at 11:11; Status DC Olanzapine (ZyPREXA ZYDIS) 5 mg Q6HP PRN PO anxiety/agitation; Start 08/10/18 at 06:45 Paliperidone Palmitate (Invega Sustenna) 234 mg Q30D IM ; Start 08/27/18 at 09:00 Trazodone HCl (Desyrel) 50 mg QHSP PRN PO INSOMNIA; Start 08/10/18 at 06:45 Trazodone HCl (Desyrel) 50 mg QHSP PRN PO INSOMNIA; Start 08/10/18 at 09:45; Status UNV Allergies Coded Allergies: Amoxicillin (Verified Allergy, Intermediate, Hives , 11/01/13) Sulfa Drugs (Verified Allergy, Mild, Rash, fever, vomiting, 11/01/13) Azithromycin (Verified Allergy, Unknown, 11/18/16) interacts with DUSTIN Ac DO Aug 20, 2018 9:28 am
--- NOTE | 2018-08-20 09:44 | MHPR ---
General Date: Aug 19, 2018 Time: 17:30 Post-Restraint Evaluation TTHE OUTCOME OF THE RESTRAINT: good EFFECTIVENESS OF THE RESTRAINT: Mechanical and/or chemical: Positive. ANY EVIDENCE THAT THE PATIENT WAS AFFECTED EMOTIONALLY: no ANY NEED FOR COUNSELING/ASSISTANCE: no CHANGES IN TREATMENT PLAN: continue current treatment, meds, staff support RECOMMENDATIONS FOR FUTURE INCIDENTS: continue current practises DUSTIN DINH DO Aug 20, 2018 9:44 am
--- NOTE | 2018-08-20 09:46 | MHIR ---
General Date: Aug 20, 2018 Time Initiated: 09:44 Restraint Documentation Order/Evaluation FACE TO FACE: yes PHYSICIAN ASSESSMENT: manic, disruptive, yelling, slamming doors REASON FOR RESTRAINT: Patient poses imminent danger of harming self or others: slamming doors, agitated, psychotic [MECHANICAL AND/OR CHEMICAL] RESTRAINTS USED: chemical and mechanical. Zyprexa 10mg im, ativan 2mg im, and benadryl 100mg im LENGTH OF TIME ORDERED IN RESTRAINTS: until pt no longer a danger to self or others WHEN TO DISCONTINUE RESTRAINTS: until pt no longer a danger to self or others Post evaluation of restraint due in 24 hours. DUSTIN DINH DO Aug 20, 2018 9:46 am
[2018-08-20] MEDS ORDERED: LORazepam 2 MG/ML VIAL (J2060) IM ONE (11:30)
[2018-08-21] MEDS: diphenhydrAMINE 50 MG CAP PO SCH ×3 (09:00→21:00)
[2018-08-21] MEDS ORDERED: CEPACOL LOZENGE PO PRN (09:30)
[2018-08-21] MEDS: HALOPERIDOL 10 MG TAB PO SCH (09:42)
[2018-08-21] MEDS: LORazepam 2 MG TAB PO SCH ×3 (09:42→20:46)
[2018-08-21] MEDS: LITHIUM CARBONATE 300MG/5ML(8MEQ/5ML)ORAL SOLUTION UDC PO SCH ×2 (09:43→20:03)
--- NOTE | 2018-08-21 10:51 | MHPR ---
General Date: Aug 20, 2018 Time: 12:00 Post-Restraint Evaluation TTHE OUTCOME OF THE RESTRAINT: good EFFECTIVENESS OF THE RESTRAINT: Mechanical and/or chemical: Positive. ANY EVIDENCE THAT THE PATIENT WAS AFFECTED EMOTIONALLY: no ANY NEED FOR COUNSELING/ASSISTANCE: no CHANGES IN TREATMENT PLAN: continue current treatment, meds, staff support RECOMMENDATIONS FOR FUTURE INCIDENTS: continue current practises DUSTIN DINH DO Aug 21, 2018 10:51 am
--- NOTE | 2018-08-21 10:57 | MHIPNPDOC ---
[facility] Progress Note Progress Note DATE OF SERVICE: 08/21/18 HISTORY: Patient is a 28 -year-old , female, with a history of schizoaffective d/o just d/c [facility] last week after 1.5 month stay for wang with psychosis who brought to ED yesterday by police after 911 called for pt acting bizarre and paranoid in the community. In the ED pt was agitated and had to be medicated. She appeared psychotic, talking to herself with fight of ideas and tangential thought. Pt utox postive amphetamines. [place] subtherapeutic at 0.20 when it was 0.99 upon d/c last week. Pt seen today and appearing psychotic with fight of ideas, hyperverbal speech, and tangential thoughts. Delusional with pseudocyesis. Pt is a poor historian with poor ability to participate adequately with interview most likely due to methamphetamine/amphetamine use and medication noncompliance. History gathered from previous records. VITAL SIGNS: See below. NEW TEST RESULTS: lithium level 0.29 CK 629, lfts and cbc wnl CURRENT MEDICATIONS: See below. MENTAL STATUS EXAMINATION: Pt asleep and unable to assess currently Per yesterday's MSE: {General Appearance: bizarre/messy hair, disheveled, wearing 3-4 t-shirts, appears stated age, hospital scrubs/clothing Build: average Demeanor: cooperative Eye Contact: average Activity: manic at times Behavior: cooperative, occasionally impulsive, hyperactive Speech: pressured, variable volume, nonsensical at times Mood: manic/bizarre/fighting off sleep/reactive Mood not fully making sense and unable to answer question logically Affect: inappropriate, labile, anxious, disorganized Thought Process: tangential, loose, associative, flight of ideas, racing, derailment Thought Content (Delusions): bizarre, delusions (denies pseudocyesis, metal plates in body) Thought Content (Other): preoccupied, obsessional, ideas of reference, internal-stimuli, appears paranoid Thought Content (Aggressive): none reported Perception (Hallucinations): auditory Perception (Other): none reported Cognition (Impairment of): attention/concentration, ability to abstract Cognition(Intelligence Est.): average Oriented: Awake, Alert, Oriented times three Insight: poor Judgment: Poor Psychosis: Associations, Abstract Thinking, Psychotic Perceptions} DIAGNOSES: Schizoaffective d/o Amphetamine/methamphetamine use d/o ASSESSMENT:Per staff, pt showered this morning with clothes on, found to be w earing 3 bras from other female pts. Walking around this morning holding a sports bra. Took all her medications. Pt now sleeping with mattress off bed and on the floor. Prolixin appears to be beneficial for pt and will continue to monitor progress with all current meds. Per yesterday's note "Pt had no codes thru out the night, but had code yesterday for manic/agitated behavior, hitting nurse. Mechanical hold and release after chemical restraint given. Pt tolerated well. Took lithium this am but refusing haldol saying she's (pseudocyesis), going to , "has the right to " Code called for mechanical and chemical restraint that pt was nonviolent thru. Gave zyprexa im instead of haldol this time with ativan and benadryl and will see if this cocktail is more beneficial as haldol doesn't appear very affective to reduce wang, psychosis, impulsive lability/agitation. Pt is manic, delusional, paranoid, and is having a hard time following redirection. Will see if must proceed to TOO in future as pt only partially compliant on meds and needs a lot of staff support/continuous redirection to finally take them. Pt continues to be hyperverbal, tangential, delusional, bizarre. Attention is still poor. Hair is bizarre and messing. Pt putting and leaving soap all over her body, face, and hair, attempting to use and put honey in hair for unknown reason, yogurt on face she states as a mask. Staff continually aiding pt and proper and completely daily showers. Is manic and psychotic. Has delusions of pseudocyesis. Haldol doesn't appear very effective so will d/c and attempt Prolixin 10mg bid to see if more beneficial. Will refer pt to [facility] for nursing home psychiatric stabilization" . MANAGEMENT PLAN: Continue current plan. Yesterday I d/c haldol and started prolixin 10mg tid. Will recheck CPK level today and lithium level Medications: invega sustenna 234mg im qmonth next dose 08/30/18 Prolixin 10mg tid benadryl 50mg tid lithium 600mg bid atarax 25mg q6hr prn anxiety trazodone 50mg qhs prn insomnia ativan 2mg tid ZyPREXA ZYDIS 5 mg Q6HP PRN PO anxiety/agitation TIME SPENT: 30 minutes. Vital Signs Vital Signs Date Time Temp Pulse Resp B/P (MAP) Pulse Ox O2 Delivery O2 Flow Rate FiO2 08/20/18 22:00 18 08/20/18 11:45 101 153/99 Room Air 08/20/18 11:20 97.8 08/20/18 10:01 98 Current Medications Current Medications Acetaminophen (Tylenol Tab) 650 mg Q6HP PRN PO HEADACHE or DISCOMFORT Last administered on 08/20/18at 03:40; Start 08/10/18 at 06:45 Acetaminophen (Tylenol Tab) 650 mg Q6HP PRN PO HEADACHE or DISCOMFORT; Start 08/10/18 at 09:45; Status UNV Al Hydrox/Mg Hydrox/Simethicone (Mylanta) 30 ml Q4HP PRN PO HEARTBURN/INDIGESTION; Start 08/10/18 at 06:45 Al Hydrox/Mg Hydrox/Simethicone (Mylanta) 30 ml Q4HP PRN PO HEARTBURN/INDIGE STION; Start 08/10/18 at 09:45; Status UNV Cetylpyridinium Chloride (Cepacol) 1 yadi Q4HP PRN PO COUGH Last administered on 08/21/18at 09:43; Start 08/21/18 at 09:30 Chlorpromazine HCl (Thorazine) 25 mg TID PO Last administered on 08/11/18at 21:00; Start 08/10/18 at 09:00; Stop 08/12/18 at 12:25; Status DC Chlorpromazine HCl (Thorazine) 50 mg TID PO Last administered on 08/13/18at 08:35; Start 08/12/18 at 16:00; Stop 08/13/18 at 08:56; Status DC Chlorpromazine HCl (Thorazine) 100 mg QID PO Last administered on 08/18/18at 12:55; Start 08/16/18 at 13:00; Stop 08/19/18 at 10:01; Status DC Chlorpromazine HCl (Thorazine) 100 mg STAT STAT IM Last administered on 08/16/18at 04:21; Start 08/16/18 at 04:14; Stop 08/16/18 at 04:16; Status DC Chlorpromazine HCl (Thorazine) 100 mg TID PO Last administered on 08/15/18at 09:52; Start 08/13/18 at 16:00; Stop 08/16/18 at 10:25; Status DC Diphenhydramine HCl (Benadryl) 50 mg STAT STAT IM Last administered on 08/12/18at 06:54; Start 08/12/18 at 06:40; Stop 08/12/18 at 06:44; Status DC Diphenhydramine HCl (Benadryl) 50 mg TID PO Last administered on 08/19/18at 20:46; Start 08/19/18 at 09:00 Diphenhydramine HCl (Benadryl) 100 mg STAT STAT IM Last administered on 08/20/18at 09:38; Start 08/20/18 at 09:28; Stop 08/20/18 at 09:30; Status DC Diphenhydramine HCl (Benadryl) 100 mg STAT STAT IM Last administered on 08/19/18at 14:30; Start 08/19/18 at 14:24; Stop 08/19/18 at 14:29; Status DC Haloperidol (Haldol) 5 mg STAT STAT IM Last administered on 08/12/18at 06:54; Start 08/12/18 at 06:40; Stop 08/12/18 at 06:43; Status DC Haloperidol (Haldol) 10 mg STAT STAT IM Last administered on 08/19/18at 14:31; Start 08/19/18 at 14:24; Stop 08/19/18 at 14:29; Status DC Haloperidol (Haldol) 10 mg TID PO Last administered on 08/21/18at 09:42; Start 08/19/18 at 09:00 Home Med (Med Rec Complete!) ASDIRECTED XX ; Start 08/10/18 at 08:00; Stop 08/10/18 at 08:00; Status DC Hydroxyzine HCl (Atarax) 50 mg Q6HP PRN PO anxiety/agitation; Start 08/10/18 at 06:45; Stop 08/10/18 at 09:57; Status DC Hydroxyzine HCl (Atarax) 50 mg TIDP PRN PO ANXIETY/AGITATION; Start 08/10/18 at 09:45 [place] Carbonate (Eskalith Oral Solution) 600 mg BID PO Last administered on 08/21/18at 09:43; Start 08/17/18 at 21:00 [place] Carbonate ([place] Carbonate) 600 mg BID PO Last administered on 08/16/18at 10:11; Start 08/10/18 at 09:00; Stop 08/17/18 at 13:42; Status DC Lorazepam (Ativan) 2 mg STAT STAT IM Last administered on 08/20/18at 09:38; Start 08/20/18 at 09:28; Stop 08/20/18 at 09:30; Status DC Lorazepam (Ativan) 2 mg STAT STAT IM Last administered on 08/12/18at 06:54; Start 08/12/18 at 06:40; Stop 08/12/18 at 06:43; Status DC Lorazepam (Ativan) 2 mg STAT STAT IM Last administered on 08/16/18at 04:21; Start 08/16/18 at 04:14; Stop 08/16/18 at 04:16; Status DC Lorazepam (Ativan) 2 mg STAT STAT IM Last administered on 08/16/18at 04:53; Start 08/16/18 at 04:45; Stop 08/16/18 at 04:47; Status DC Lorazepam (Ativan) 2 mg TID PO Last administered on 08/21/18at 09:42; Start 08/16/18 at 16:00 Magnesium Hydroxide (Milk Of Magnesia) 30 ml DAILYPRN PRN PO CONSTIPATION; Start 08/10/18 at 06:45 Magnesium Hydroxide (Milk Of Magnesia) 30 ml DAILYPRN PRN PO CONSTIPATION; S tart 08/10/18 at 09:45; Status UNV Non-Formulary Medication ( See Comment Field Below ) SEE COMMENTS SECTION 1T@10 XX ; Start 08/19/18 at 10:00; Stop 08/19/18 at 10:00; Status DC Non-Formulary Medication ( See Comment Field Below ) SEE LABEL COMMENTS DAILY XX ; Start 08/17/18 at 09:00; Stop 08/17/18 at 11:11; Status DC Olanzapine (ZyPREXA ZYDIS) 5 mg Q6HP PRN PO anxiety/agitation; Start 08/10/18 at 06:45 Olanzapine (Zyprexa Intramuscular) 10 mg STAT STAT IM Last administered on 08/20/18at 09:37; Start 08/20/18 at 09:28; Stop 08/20/18 at 09:30; Status DC Paliperidone Palmitate (Invega Sustenna) 234 mg Q30D IM ; Start 08/27/18 at 09:00 Trazodone HCl (Desyrel) 50 mg QHSP PRN PO INSOMNIA; Start 08/10/18 at 06:45 Trazodone HCl (Desyrel) 50 mg QHSP PRN PO INSOMNIA; Start 08/10/18 at 09:45; Status UNV Allergies Coded Allergies: Amoxicillin (Verified Allergy, Intermediate, Hives , 11/01/13) Sulfa Drugs (Verified Allergy, Mild, Rash, fever, vomiting, 11/01/13) Azithromycin (Verified Allergy, Unknown, 11/18/16) interacts with DUSTIN Ac DO Aug 21, 2018 10:57 am
[2018-08-22] MEDS: diphenhydrAMINE 50 MG CAP PO SCH ×3 (09:00→21:00)
[2018-08-22] MEDS: LORazepam 2 MG TAB PO SCH ×3 (09:57→21:28)
[2018-08-22] MEDS: LITHIUM CARBONATE 300MG/5ML(8MEQ/5ML)ORAL SOLUTION UDC PO SCH ×2 (09:58→21:28)
[2018-08-23 06:42] VITALS: BP 142/104
[2018-08-23] MEDS ORDERED: cloNIDine 0.1 MG TAB PO ONE (07:15)
[2018-08-23] MEDS: diphenhydrAMINE 50 MG CAP PO SCH ×3 (09:00→21:00)
[2018-08-23] MEDS: LORazepam 2 MG TAB PO SCH ×3 (09:00→22:23)
[2018-08-23] MEDS: LITHIUM CARBONATE 300MG/5ML(8MEQ/5ML)ORAL SOLUTION UDC PO SCH ×2 (11:36→22:23)
[2018-08-23] MEDS ORDERED: BENZTROPINE 1 MG TAB PO ONE (17:00)
[2018-08-24] MEDS: diphenhydrAMINE 50 MG CAP PO SCH ×3 (09:00→20:07)
[2018-08-24] MEDS: LITHIUM CARBONATE 300MG/5ML(8MEQ/5ML)ORAL SOLUTION UDC PO SCH ×2 (09:20→20:06)
[2018-08-24] MEDS: LORazepam 2 MG TAB PO SCH ×3 (09:20→20:06)
--- NOTE | 2018-08-24 10:04 | MHIPNPDOC ---
[facility] Progress Note Progress Note DATE OF SERVICE: 08/24/18 HISTORY: Patient is a 28 -year-old , female, with a history of schizoaffective d/o just d/c [facility] last week after 1.5 month stay for wang with psychosis who brought to ED yesterday by police after 911 called for pt acting bizarre and paranoid in the community. In the ED pt was agitated and had to be medicated. She appeared psychotic, talking to herself with fight of ideas and tangential thought. Pt utox postive amphetamines. [place] subtherapeutic at 0.20 when it was 0.99 upon d/c last week. Pt seen today and appearing psychotic with fight of ideas, hyperverbal speech, and tangential thoughts. Delusional with pseudocyesis. Pt is a poor historian with poor ability to participate adequately with interview most likely due to methamphetamine/amphetamine use and medication noncompliance. History gathered from previous records. VITAL SIGNS: See below. NEW TEST RESULTS: lithium level 0.29 CK 629, lfts and cbc wnl CURRENT MEDICATIONS: See below. MENTAL STATUS EXAMINATION: Pt asleep and unable to assess currently Per ' MSE: {General Appearance: bizarre/messy hair, disheveled, wearing 3-4 t-shirts, appears stated age, hospital scrubs/clothing Build: average Demeanor: cooperative Eye Contact: average Activity: manic at times Behavior: cooperative, occasionally impulsive, hyperactive Speech: pressured, variable volume, nonsensical at times Mood: manic/bizarre/fighting off sleep/reactive Mood not fully making sense and unable to answer question logically Affect: inappropriate, labile, anxious, disorganized Thought Process: tangential, loose, associative, flight of ideas, racing, derailment Thought Content (Delusions): bizarre, delusions (denies pseudocyesis, metal plates in body) Thought Content (Other): preoccupied, obsessional, ideas of reference, internal-stimuli, appears paranoid Thought Content (Aggressive): none reported Perception (Hallucinations): auditory Perception (Other): none reported Cognition (Impairment of): attention/concentration, ability to abstract Cognition(Intelligence Est.): average Oriented: Awake, Alert, Oriented times three Insight: poor Judgment: Poor Psychosis: Associations, Abstract Thinking, Psychotic Perceptions} DIAGNOSES: Schizoaffective d/o Amphetamine/methamphetamine use d/o ASSESSMENT:Per staff, pt coded over the weekend and experienced an episode of EPS. Pt currently asleep so unable to assess. Left sleeping as sleep is still erratic and no complete. Will d/c prolixin as possible cause of EPS (eye rolling) and restart haldol 10mg tid. Will continue to assess pt daily and encourage med compliance. Did take her lithium this morning. Continues to be manic, delusional, paranoid, and having a hard time following redirection. Will see if must proceed to TOO in future as pt only partially compliant on meds and needs a lot of staff support/continuous redirection to finally take them. Pt continues to be hyperverbal, tangential, delusional, bizarre. Attention is still poor. Hair is bizarre and messing. Pt putting and leaving soap all over her body, face, and hair, attempting to use and put honey in hair for unknown reason, yogurt on face she states as a mask. Staff continually aiding pt and proper and completely daily showers. Is manic and psychotic. Has delusions of pseudocyesis. Haldol doesn't appear very effective so will d/c and attempt Prolixin 10mg bid to see if more beneficial. Will refer pt to [facility] for long-term psychiatric stabilization" . MANAGEMENT PLAN: Continue current plan. d/c prolixin due to EPSl and restart haldol 10mg tid. Will recheck CPK level today and lithium level Medications: invega sustenna 234mg im qmonth next dose 08/30/18 haldol 10mg tid benadryl 50mg tid lithium 600mg bid atarax 25mg q6hr prn anxiety trazodone 50mg qhs prn insomnia ativan 2mg tid ZyPREXA ZYDIS 5 mg Q6HP PRN PO anxiety/agitation TIME SPENT: 30 minutes. Vital Signs Vital Signs Date Time Temp Pulse Resp B/P (MAP) Pulse Ox O2 Delivery O2 Flow Rate FiO2 08/23/18 06:42 96.9 107 20 142/104 (117) 08/20/18 11:45 Room Air 08/20/18 10:01 98 Current Medications Current Medications Acetaminophen (Tylenol Tab) 650 mg Q6HP PRN PO HEADACHE or DISCOMFORT Last administered on 08/20/18at 03:40; Start 08/10/18 at 06:45 Acetaminophen (Tylenol Tab) 650 mg Q6HP PRN PO HEADACHE or DISCOMFORT; Start 08/10/18 at 09:45; Status UNV Al Hydrox/Mg Hydrox/Simethicone (Mylanta) 30 ml Q4HP PRN PO HEARTBURN/INDIGESTION; Start 08/10/18 at 06:45 Al Hydrox/Mg Hydrox/Simethicone (Mylanta) 30 ml Q4HP PRN PO HEARTBURN/INDIGESTION; Start 08/10/18 at 09:45; Status UNV Cetylpyridinium Chloride (Cepacol) 1 yadi Q4HP PRN PO COUGH Last administered on 08/21/18at 09:43; Start 08/21/18 at 09:30 Chlorpromazine HCl (Thorazine) 25 mg TID PO Last administered on 08/11/18at 21:00; Start 08/10/18 at 09:00; Stop 08/12/18 at 12:25; Status DC Chlorpromazine HCl (Thorazine) 50 mg TID PO Last administered on 08/13/18at 08:35; Start 08/12/18 at 16:00; Stop 08/13/18 at 08:56; Status DC Chlorpromazine HCl (Thorazine) 100 mg QID PO Last administered on 08/18/18at 12:55; Start 08/16/18 at 13:00; Stop 08/19/18 at 10:01; Status DC Chlorpromazine HCl (Thorazine) 100 mg STAT STAT IM Last administered on 08/16/18at 04:21; Start 08/16/18 at 04:14; Stop 08/16/18 at 04:16; Status DC Chlorpromazine HCl (Thorazine) 100 mg TID PO Last administered on 08/15/18at 09:52; Start 08/13/18 at 16:00; Stop 08/16/18 at 10:25; Status DC Diphenhydramine HCl (Benadryl) 50 mg STAT STAT IM Last administered on 08/12/18at 06:54; Start 08/12/18 at 06:40; Stop 08/12/18 at 06:44; Status DC Diphenhydramine HCl (Benadryl) 50 mg TID PO Last administered on 08/19/18at 20:46; Start 08/19/18 at 09:00 Diphenhydramine HCl (Benadryl) 100 mg STAT STAT IM Last administered on 08/20/18at 09:38; Start 08/20/18 at 09:28; Stop 08/20/18 at 09:30; Status DC Diphenhydramine HCl (Benadryl) 100 mg STAT STAT IM Last administered on 08/19/18at 14:30; Start 08/19/18 at 14:24; Stop 08/19/18 at 14:29; Status DC Fluphenazine HCl (Prolixin) 10 mg TID PO Last administered on 08/23/18at 16:05; Start 08/21/18 at 11:00 Haloperidol (Haldol) 5 mg STAT STAT IM Last administered on 08/12/18at 06:54; Start 08/12/18 at 06:40; Stop 08/12/18 at 06:43; Status DC Haloperidol (Haldol) 10 mg STAT STAT IM Last administered on 08/19/18at 14:31; Start 08/19/18 at 14:24; Stop 08/19/18 at 14:29; Status DC Haloperidol (Haldol) 10 mg TID PO Last administered on 08/21/18at 09:42; Start 08/19/18 at 09:00; Stop 08/21/18 at 11:00; Status DC Home Med (Med Rec Complete!) ASDIRECTED XX ; Start 08/10/18 at 08:00; Stop 08/10/18 at 08:00; Status DC Hydroxyzine HCl (Atarax) 50 mg Q6HP PRN PO anxiety/agitation; Start 08/10/18 at 06:45; Stop 08/10/18 at 09:57; Status DC Hydroxyzine HCl (Atarax) 50 mg TIDP PRN PO ANXIETY/AGITATION; Start 08/10/18 at 09:45 [place] Carbonate (Eskalith Oral Solution) 600 mg BID PO Last administered on 08/24/18at 09:20; Start 08/17/18 at 21:00 [place] Carbonate ([place] Carbonate) 600 mg BID PO Last administered on 08/16/18at 10:11; Start 08/10/18 at 09:00; Stop 08/17/18 at 13:42; Status DC Lorazepam (Ativan) 2 mg STAT STAT IM Last administered on 08/20/18at 09:38; Start 08/20/18 at 09:28; Stop 08/20/18 at 09:30; Status DC Lorazepam (Ativan) 2 mg STAT STAT IM Last administered on 08/12/18at 06:54; Start 08/12/18 at 06:40; Stop 08/12/18 at 06:43; Status DC Lorazepam (Ativan) 2 mg STAT STAT IM Last administered on 08/16/18at 04:21; Start 08/16/18 at 04:14; Stop 08/16/18 at 04:16; Status DC Lorazepam (Ativan) 2 mg STAT STAT IM Last administered on 08/16/18at 04:53; Start 08/16/18 at 04:45; Stop 08/16/18 at 04:47; Status DC Lorazepam (Ativan) 2 mg TID PO Last administered on 08/24/18at 09:20; Start 08/16/18 at 16:00 Magnesium Hydroxide (Milk Of Magnesia) 30 ml DAILYPRN PRN PO CONSTIPATION; Start 08/10/18 at 06:45 Magnesium Hydroxide (Milk Of Magnesia) 30 ml DAILYPRN PRN PO CONSTIPATION; Start 08/10/18 at 09:45; Status UNV Miscellaneous (Unresolved Clarification Entry) SEE LABEL COMMENTS DAILY XX ; Start 08/22/18 at 09:00; Stop 08/22/18 at 17:02; Status DC Non-Formulary Medication ( See Comment Field Below ) SEE COMMENTS SECTION 1T@10 XX ; Start 08/19/18 at 10:00; Stop 08/19/18 at 10:00; Status DC Non-Formulary Medication ( See Comment Field Below ) SEE LABEL COMMENTS DAILY XX ; Start 08/17/18 at 09:00; Stop 08/17/18 at 11:11; Status DC Olanzapine (ZyPREXA ZYDIS) 5 mg Q6HP PRN PO anxiety/agitation; Start 08/10/18 at 06:45 Olanzapine (Zyprexa Intramuscular) 10 mg STAT STAT IM Last administered on 08/20/18at 09:37; Start 08/20/18 at 09:28; Stop 08/20/18 at 09:30; Status DC Paliperidone Palmitate (Invega Sustenna) 234 mg Q30D IM ; Start 08/27/18 at 09:00 Trazodone HCl (Desyrel) 50 mg QHSP PRN PO INSOMNIA; Start 08/10/18 at 06:45 Trazodone HCl (Desyrel) 50 mg QHSP PRN PO INSOMNIA; Start 08/10/18 at 09:45; Status UNV Allergies Coded Allergies: Amoxicillin (Verified Allergy, Intermediate, Hives , 11/01/13) Sulfa Drugs (Verified Allergy, Mild, Rash, fever, vomiting, 11/01/13) Azithromycin (Verified Allergy, Unknown, 11/18/16) interacts with DUSTIN Ac DO Aug 24, 2018 10:03 am
[2018-08-24] MEDS: HALOPERIDOL 10 MG TAB PO SCH ×3 (10:33→20:06)
[2018-08-24] MEDS: ACETAMINOPHEN TAB 650MG DOSE (2X325MG) PO PRN (16:04)
[2018-08-24 18:00] VITALS: BP 128/86
[2018-08-25] MEDS: LORazepam 2 MG TAB PO SCH ×3 (08:12→20:53)
[2018-08-25] MEDS: LITHIUM CARBONATE 300MG/5ML(8MEQ/5ML)ORAL SOLUTION UDC PO SCH ×2 (08:12→20:53)
[2018-08-25] MEDS: diphenhydrAMINE 50 MG CAP PO SCH ×3 (08:13→20:54)
[2018-08-25] MEDS: HALOPERIDOL 10 MG TAB PO SCH ×3 (08:13→20:53)
[2018-08-25 08:21] LABS: LITHIUM LEVEL 0.47 MEQ/L (0.60-1.20)
[2018-08-25 18:00] VITALS: BP 136/80
[2018-08-26 06:43] VITALS: BP 126/63
[2018-08-26] MEDS: HALOPERIDOL 10 MG TAB PO SCH ×3 (08:52→20:04)
[2018-08-26] MEDS: LORazepam 2 MG TAB PO SCH ×3 (08:52→20:04)
[2018-08-26] MEDS: LITHIUM CARBONATE 300MG/5ML(8MEQ/5ML)ORAL SOLUTION UDC PO SCH ×2 (08:52→20:03)
[2018-08-26] MEDS: diphenhydrAMINE 50 MG CAP PO SCH ×3 (08:54→20:05)
--- NOTE | 2018-08-26 09:56 | MHIPNPDOC ---
[facility] Progress Note Progress Note DATE OF SERVICE: 08/26/18 HISTORY: Patient is a 28 -year-old , female, with a history of schizoaffective d/o just d/c [facility] last week after 1.5 month stay for wang with psychosis who brought to ED yesterday by police after 911 called for pt acting bizarre and paranoid in the community. In the ED pt was agitated and had to be medicated. She appeared psychotic, talking to herself with fight of ideas and tangential thought. Pt utox postive amphetamines. [place] subtherapeutic at 0.20 when it was 0.99 upon d/c last week. Pt seen today and appearing psychotic with fight of ideas, hyperverbal speech, and tangential thoughts. Delusional with pseudocyesis. Pt is a poor historian with poor ability to participate adequately with interview most likely due to methamphetamine/amphetamine use and medication noncompliance. History gathered from previous records. VITAL SIGNS: See below. NEW TEST RESULTS: lithium level 0.47 CK 72, lfts and cbc wnl CURRENT MEDICATIONS: See below. MENTAL STATUS EXAMINATION: General Appearance: brushed hair, disheveled, wearing 3-4 t-shirts, appears stated age, hospital scrubs/clothing Build: average Demeanor: cooperative Eye Contact: average Activity: manic at times Behavior: cooperative, occasionally impulsive, hyperactive Speech: less pressured, variable volume Mood: less manic/bizarre/reactive Mood good Affect: at times inappropriate, labile, anxious, disorganized Thought Process: improved tangential, loose, associative, flight of ideas, racing, derailment Thought Content (Delusions): improved bizarre, delusions (denies pseudocyesis, metal plates in body) Thought Content (Other): improved preoccupied, obsessional, ideas of reference, internal-stimuli, appears paranoid Thought Content (Aggressive): none reported Perception (Hallucinations): improved auditory Perception (Other): none reported Cognition (Impairment of): improved attention/concentration, ability to abstract Cognition(Intelligence Est.): average Oriented: Awake, Alert, Oriented times three Insight: poor Judgment: Poor Psychosis: improved Associations, Abstract Thinking, Psychotic Perceptions DIAGNOSES: Schizoaffective d/o Amphetamine/methamphetamine use d/o ASSESSMENT:No codes yesterday and thru the night. Pt seen in office and states she taking all her medication and finding that it's helpful. Per record pt is compliant on morning meds. CK normal and lithium almost therapeutic, should continue to rise with compliance as when last d/c on current dose was 0.99. Continues to have periods of manic, delusional, paranoid, hard time following redirection at times. Will see if must proceed to TOO in future as pt only partially compliant on meds and needs a lot of staff support/continuous redirection to finally take them. Pt is less hyperverbal but has periods of tangential, delusional, bizarre behavior usually when not compliant with her meds. Attention is improving slowly. She doesn't appear to be putting and leaving soap all over her body, face, and hair, attempting to use and put honey in hair for unknown reason, yogurt on face she states as a mask. Staff continually aiding pt and proper and completely daily showers. Has delusions of pseudocyesis. Will refer pt to [facility] for terminal clerk psychiatric stabilization" . MANAGEMENT PLAN: Continue current plan. Medications: invega sustenna 234mg im qmonth next dose 08/30/18 haldol 10mg tid benadryl 50mg tid lithium 600mg bid atarax 25mg q6hr prn anxiety trazodone 50mg qhs prn insomnia ativan 2mg tid ZyPREXA ZYDIS 5 mg Q6HP PRN PO anxiety/agitation TIME SPENT: 30 minutes. Vital Signs Vital Signs Date Time Temp Pulse Resp B/P (MAP) Pulse Ox O2 Delivery O2 Flow Rate FiO2 08/26/18 08:32 Room Air 08/26/18 06:43 97.8 96 16 126/63 (84) 08/20/18 10:01 98 Current Medications Current Medications Acetaminophen (Tylenol Tab) 650 mg Q6HP PRN PO HEADACHE or DISCOMFORT Last administered on 08/24/18at 16:04; Start 08/10/18 at 06:45 Acetaminophen (Tylenol Tab) 650 mg Q6HP PRN PO HEADACHE or DISCOMFORT; Start 08/10/18 at 09:45; Status UNV Al Hydrox/Mg Hydrox/Simethicone (Mylanta) 30 ml Q4HP PRN PO HEARTBURN/INDIGESTION; Start 08/10/18 at 06:45 Al Hydrox/Mg Hydrox/Simethicone (Mylanta) 30 ml Q4HP PRN PO HEARTBURN/INDIGESTION; Start 08/10/18 at 09:45; Status UNV Cetylpyridinium Chloride (Cepacol) 1 yadi Q4HP PRN PO COUGH Last administered on 08/21/18at 09:43; Start 08/21/18 at 09:30 Chlorpromazine HCl (Thorazine) 25 mg TID PO Last administered on 08/11/18at 21:00; Start 08/10/18 at 09:00; Stop 08/12/18 at 12:25; Status DC Chlorpromazine HCl (Thorazine) 50 mg TID PO Last administered on 08/13/18at 08:35; Start 08/12/18 at 16:00; Stop 08/13/18 at 08:56; Status DC Chlorpromazine HCl (Thorazine) 100 mg QID PO Last administered on 08/18/18at 12:55; Start 08/16/18 at 13:00; Stop 08/19/18 at 10:01; Status DC Chlorpromazine HCl (Thorazine) 100 mg STAT STAT IM Last administered on 08/16/18at 04:21; Start 08/16/18 at 04:14; Stop 08/16/18 at 04:16; Status DC Chlorpromazine HCl (Thorazine) 100 mg TID PO Last administered on 08/15/18at 09:52; Start 08/13/18 at 16:00; Stop 08/16/18 at 10:25; Status DC Diphenhydramine HCl (Benadryl) 50 mg STAT STAT IM Last administered on 08/12/18at 06:54; Start 08/12/18 at 06:40; Stop 08/12/18 at 06:44; Status DC Diphenhydramine HCl (Benadryl) 50 mg TID PO Last administered on 08/19/18at 20:46; Start 08/19/18 at 09:00 Diphenhydramine HCl (Benadryl) 100 mg STAT STAT IM Last administered on 08/20/18at 09:38; Start 08/20/18 at 09:28; Stop 08/20/18 at 09:30; Status DC Diphenhydramine HCl (Benadryl) 100 mg STAT STAT IM Last administered on 08/19/18 14:30; Start 08/19/18 at 14:24; Stop 08/19/18 at 14:29; Status DC Fluphenazine HCl (Prolixin) 10 mg TID PO Last administered on 08/23/18 16:05; Start 08/21/18 at 11:00; Stop 08/24/18 at 10:05; Status DC Haloperidol (Haldol) 5 mg STAT STAT IM Last administered on 08/12/18 06:54; Start 08/12/18 at 06:40; Stop 08/12/18 at 06:43; Status DC Haloperidol (Haldol) 10 mg STAT STAT IM Last administered on 08/19/18 14:31; Start 08/19/18 at 14:24; Stop 08/19/18 at 14:29; Status DC Haloperidol (Haldol) 10 mg TID PO Last administered on 08/26/18 08:52; Start 08/24/18 at 09:00 Haloperidol (Haldol) 10 mg TID PO Last administered on 08/21/18 09:42; Start 08/19/18 at 09:00; Stop 08/21/18 at 11:00; Status DC Home Med (Med Rec Complete!) ASDIRECTED XX ; Start 08/10/18 at 08:00; Stop 08/10/18 at 08:00; Status DC Hydroxyzine HCl (Atarax) 50 mg Q6HP PRN PO anxiety/agitation; Start 08/10/18 at 06:45; Stop 08/10/18 at 09:57; Status DC Hydroxyzine HCl (Atarax) 50 mg TIDP PRN PO ANXIETY/AGITATION; Start 08/10/18 at 09:45 [place] Carbonate (Eskalith Oral Solution) 600 mg BID PO Last administered on 08/26/18 08:52; Start 08/17/18 at 21:00 [place] Carbonate ([place] Carbonate) 600 mg BID PO Last administered on 08/16/18 10:11; Start 08/10/18 at 09:00; Stop 08/17/18 at 13:42; Status DC Lorazepam (Ativan) 2 mg STAT STAT IM Last administered on 08/20/18at 09:38; Start 08/20/18 at 09:28; Stop 08/20/18 at 09:30; Status DC Lorazepam (Ativan) 2 mg STAT STAT IM Last administered on 08/12/18at 06:54; Start 08/12/18 at 06:40; Stop 08/12/18 at 06:43; Status DC Lorazepam (Ativan) 2 mg STAT STAT IM Last administered on 08/16/18at 04:21; Start 08/16/18 at 04:14; Stop 08/16/18 at 04:16; Status DC Lorazepam (Ativan) 2 mg STAT STAT IM Last administered on 08/16/18at 04:53; Start 08/16/18 at 04:45; Stop 08/16/18 at 04:47; Status DC Lorazepam (Ativan) 2 mg TID PO Last administered on 08/26/18at 08:52; Start 08/16/18 at 16:00 Magnesium Hydroxide (Milk Of Magnesia) 30 ml DAILYPRN PRN PO CONSTIPATION; Start 08/10/18 at 06:45 Magnesium Hydroxide (Milk Of Magnesia) 30 ml DAILYPRN PRN PO CONSTIPATION; Start 08/10/18 at 09:45; Status UNV Miscellaneous (Unresolved Clarification Entry) SEE LABEL COMMENTS DAILY XX ; Start 08/22/18 at 09:00; Stop 08/22/18 at 17:02; Status DC Non-Formulary Medication ( See Comment Field Below ) SEE COMMENTS SECTION 1T@10 XX ; Start 08/19/18 at 10:00; Stop 08/19/18 at 10:00; Status DC Non-Formulary Medication ( See Comment Field Below ) SEE LABEL COMMENTS DAILY XX ; Start 08/17/18 at 09:00; Stop 08/17/18 at 11:11; Status DC Olanzapine (ZyPREXA ZYDIS) 5 mg Q6HP PRN PO anxiety/agitation; Start 08/10/18 at 06:45 Olanzapine (Zyprexa Intramuscular) 10 mg STAT STAT IM Last administered on 08/20/18at 09:37; Start 08/20/18 at 09:28; Stop 08/20/18 at 09:30; Status DC Paliperidone Palmitate (Invega Sustenna) 234 mg Q30D IM ; Start 08/27/18 at 09:00 Trazodone HCl (Desyrel) 50 mg QHSP PRN PO INSOMNIA; Start 08/10/18 at 06:45 Trazodone HCl (Desyrel) 50 mg QHSP PRN PO INSOMNIA; Start 08/10/18 at 09:45; Status UNV Allergies Coded Allergies: Amoxicillin (Verified Allergy, Intermediate, Hives , 11/01/13) Sulfa Drugs (Verified Allergy, Mild, Rash, fever, vomiting, 11/01/13) Azithromycin (Verified Allergy, Unknown, 11/18/16) interacts with DUSTIN Ac DO Aug 26, 2018 9:56 am
[2018-08-26] MEDS: ACETAMINOPHEN TAB 650MG DOSE (2X325MG) PO PRN (13:40)
[2018-08-26 18:00] VITALS: BP 142/83
[2018-08-27] MEDS: diphenhydrAMINE 50 MG CAP PO SCH ×3 (08:31→19:24)
[2018-08-27] MEDS: HALOPERIDOL 10 MG TAB PO SCH ×3 (08:31→19:24)
[2018-08-27] MEDS: LORazepam 2 MG TAB PO SCH ×3 (08:31→19:24)
[2018-08-27] MEDS: LITHIUM CARBONATE 300MG/5ML(8MEQ/5ML)ORAL SOLUTION UDC PO SCH ×2 (08:32→19:23)
[2018-08-27] MEDS ORDERED: PALIPERIDONE PALMITATE 234 MG/1.5 ML INJ (INVEGA SUSTENNA)(J2426) IM SCH (09:00)
--- NOTE | 2018-08-27 09:49 | MHIPNPDOC ---
[facility] Progress Note Progress Note DATE OF SERVICE: 08/27/18 HISTORY: Patient is a 28 -year-old , female, with a history of schizoaffective d/o just d/c [facility] last week after 1.5 month stay for wang with psychosis who brought to ED yesterday by police after 911 called for pt acting bizarre and paranoid in the community. In the ED pt was agitated and had to be medicated. She appeared psychotic, talking to herself with fight of ideas and tangential thought. Pt utox postive amphetamines. [place] subtherapeutic at 0.20 when it was 0.99 upon d/c last week. Pt seen today and appearing psychotic with fight of ideas, hyperverbal speech, and tangential thoughts. Delusional with pseudocyesis. Pt is a poor historian with poor ability to participate adequately with interview most likely due to methamphetamine/amphetamine use and medication noncompliance. History gathered from previous records. VITAL SIGNS: See below. NEW TEST RESULTS: lithium level 0.47 CK 72, lfts and cbc wnl CURRENT MEDICATIONS: See below. MENTAL STATUS EXAMINATION: General Appearance: brushed hair, clean, appears stated age, hospital scrubs/clothing Build: average Demeanor: cooperative Eye Contact: average Activity: improving to average Behavior: cooperative, occasionally impulsive, hyperactive Speech: less pressured, reg volume Mood: less manic/bizarre/reactive Mood good Affect: less inappropriate, labile, anxious, no longer disorganized Thought Process: improving tangential, loose, associative, flight of ideas, racing, derailment Thought Content (Delusions): improving bizarre, delusions (denies pseudocyesis, metal plates in body) Thought Content (Other): improving preoccupied, obsessional, ideas of r eference, internal-stimuli, appears paranoid Thought Content (Aggressive): none reported Perception (Hallucinations): improved auditory Perception (Other): none reported Cognition (Impairment of): improving attention/concentration, ability to abstract Cognition(Intelligence Est.): average Oriented: Awake, Alert, Oriented times three Insight: poor Judgment: Poor Psychosis: improving Associations, Abstract Thinking, Psychotic Perceptions DIAGNOSES: Schizoaffective d/o Amphetamine/methamphetamine use d/o ASSESSMENT:No codes yesterday and thru the night. Pt seen in office and states she's good, taking all her medication that appear to be beneficial helpful as wang and psychosis improving slowing and progressively. Per record pt is comp liant on morning meds. CK normal and lithium almost therapeutic. [place] should continue to rise with compliance as when last d/c on current dose was 0.99. She is having less periods of manic, delusional, paranoid behavior and they are less dramatic and severe as previous when not compliant on meds. She is able to follow redirection most of the time. Will see if must proceed to TOO in future if pt not compliant on meds. Pt is less hyperverbal than yesterday and is having less periods of tangential, delusional, bizarre behavior usually when not compliant with her meds. Attention is improving slowly. She doesn't appear to be putting and leaving soap all over her body, face, and hair, attempting to use and put honey in hair for unknown reason, yogurt on face she states as a mask. Staff continually aiding pt as needed with ADLs but is caring for them more on her own now. Denies delusions of pseudocyesis. 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 Insight and Judgement continue to be poor. . MANAGEMENT PLAN: Continue current plan. Medications: invega sustenna 234mg im qmonth next dose 08/30/18 haldol 10mg tid benadryl 50mg tid lithium 600mg bid atarax 25mg q6hr prn anxiety trazodone 50mg qhs prn insomnia ativan 2mg tid ZyPREXA ZYDIS 5 mg Q6HP PRN PO anxiety/agitation TIME SPENT: 30 minutes. Vital Signs Vital Signs Date Time Temp Pulse Resp B/P (MAP) Pulse Ox O2 Delivery O2 Flow Rate FiO2 08/26/18 18:00 97.9 80 18 142/83 (102) 08/26/18 08:32 Room Air Current Medications Current Medications Acetaminophen (Tylenol Tab) 650 mg Q6HP PRN PO HEADACHE or DISCOMFORT Last administered on 08/26/18at 13:40; Start 08/10/18 at 06:45 Acetaminophen (Tylenol Tab) 650 mg Q6HP PRN PO HEADACHE or DISCOMFORT; Start 08/10/18 at 09:45; Status UNV Al Hydrox/Mg Hydrox/Simethicone (Mylanta) 30 ml Q4HP PRN PO HEART BURN/INDIGESTION; Start 08/10/18 at 06:45 Al Hydrox/Mg Hydrox/Simethicone (Mylanta) 30 ml Q4HP PRN PO HEARTBURN/INDIGESTION; Start 08/10/18 at 09:45; Status UNV Cetylpyridinium Chloride (Cepacol) 1 yadi Q4HP PRN PO COUGH Last administered on 08/21/18at 09:43; Start 08/21/18 at 09:30 Chlorpromazine HCl (Thorazine) 25 mg TID PO Last administered on 08/11/18at 21:00; Start 08/10/18 at 09:00; Stop 08/12/18 at 12:25; Status DC Chlorpromazine HCl (Thorazine) 50 mg TID PO Last administered on 08/13/18at 08:35; Start 08/12/18 at 16:00; Stop 08/13/18 at 08:56; Status DC Chlorpromazine HCl (Thorazine) 100 mg QID PO Last administered on 08/18/18at 12:55; Start 08/16/18 at 13:00; Stop 08/19/18 at 10:01; Status DC Chlorpromazine HCl (Thorazine) 100 mg STAT STAT IM Last administered on 08/16/18at 04:21; Start 08/16/18 at 04:14; Stop 08/16/18 at 04:16; Status DC Chlorpromazine HCl (Thorazine) 100 mg TID PO Last administered on 08/15/18at 09:52; Start 08/13/18 at 16:00; Stop 08/16/18 at 10:25; Status DC Diphenhydramine HCl (Benadryl) 50 mg STAT STAT IM Last administered on 08/12/18at 06:54; Start 08/12/18 at 06:40; Stop 08/12/18 at 06:44; Status DC Diphenhydramine HCl (Benadryl) 50 mg TID PO Last administered on 08/27/18at 08:31; Start 08/19/18 at 09:00 Diphenhydramine HCl (Benadryl) 100 mg STAT STAT IM Last administered on 08/20/18at 09:38; Start 08/20/18 at 09:28; Stop 08/20/18 at 09:30; Status DC Diphenhydramine HCl (Benadryl) 100 mg STAT STAT IM Last administered on 08/19/18 14:30; Start 08/19/18 at 14:24; Stop 08/19/18 at 14:29; Status DC Fluphenazine HCl (Prolixin) 10 mg TID PO Last administered on 08/23/18at 16:05; Start 08/21/18 at 11:00; Stop 08/24/18 at 10:05; Status DC Haloperidol (Haldol) 5 mg STAT STAT IM Last administered on 08/12/18at 06:54; Start 08/12/18 at 06:40; Stop 08/12/18 at 06:43; Status DC Haloperidol (Haldol) 10 mg STAT STAT IM Last administered on 08/19/18 14:31; Start 08/19/18 at 14:24; Stop 08/19/18 at 14:29; Status DC Haloperidol (Haldol) 10 mg TID PO Last administered on 08/27/18at 08:31; Start 08/24/18 at 09:00 Haloperidol (Haldol) 10 mg TID PO Last administered on 08/21/18at 09:42; Start 08/19/18 at 09:00; Stop 08/21/18 at 11:00; Status DC Home Med (Med Rec Complete!) ASDIRECTED XX ; Start 08/10/18 at 08:00; Stop 08/10/18 at 08:00; Status DC Hydroxyzine HCl (Atarax) 50 mg Q6HP PRN PO anxiety/agitation; Start 08/10/18 at 06:45; Stop 08/10/18 at 09:57; Status DC Hydroxyzine HCl (Atarax) 50 mg TIDP PRN PO ANXIETY/AGITATION; Start 08/10/18 at 09:45 [place] Carbonate (Eskalith Oral Solution) 600 mg BID PO Last administered on 08/27/18at 08:32; Start 08/17/18 at 21:00 [place] Carbonate ([place] Carbonate) 600 mg BID PO Last administered on 08/16/18at 10:11; Start 08/10/18 at 09:00; Stop 08/17/18 at 13:42; Status DC Lorazepam (Ativan) 2 mg STAT STAT IM Last administered on 08/20/18at 09:38; Start 08/20/18 at 09:28; Stop 08/20/18 at 09:30; Status DC Lorazepam (Ativan) 2 mg STAT STAT IM Last administered on 08/12/18at 06:54; Start 08/12/18 at 06:40; Stop 08/12/18 at 06:43; Status DC Lorazepam (Ativan) 2 mg STAT STAT IM Last administered on 08/16/18at 04:21; Start 08/16/18 at 04:14; Stop 08/16/18 at 04:16; Status DC Lorazepam (Ativan) 2 mg STAT STAT IM Last administered on 08/16/18at 04:53; Start 08/16/18 at 04:45; Stop 08/16/18 at 04:47; Status DC Lorazepam (Ativan) 2 mg TID PO Last administered on 08/27/18at 08:31; Start 08/16/18 at 16:00 Magnesium Hydroxide (Milk Of Magnesia) 30 ml DAILYPRN PRN PO CONSTIPATION; Start 08/10/18 at 06:45 Magnesium Hydroxide (Milk Of Magnesia) 30 ml DAILYPRN PRN PO CONSTIPATION; Start 08/10/18 at 09:45; Status UNV Miscellaneous (Unresolved Clarification Entry) SEE LABEL COMMENTS DAILY XX ; Start 08/22/18 at 09:00; Stop 08/22/18 at 17:02; Status DC Non-Formulary Medication ( See Comment Field Below ) SEE COMMENTS SECTION 1T@10 XX ; Start 08/19/18 at 10:00; Stop 08/19/18 at 10:00; Status DC Non-Formulary Medication ( See Comment Field Below ) SEE LABEL COMMENTS DAILY XX ; Start 08/17/18 at 09:00; Stop 08/17/18 at 11:11; Status DC Olanzapine (ZyPREXA ZYDIS) 5 mg Q6HP PRN PO anxiety/agitation; Start 08/10/18 at 06:45 Olanzapine (Zyprexa Intramuscular) 10 mg STAT STAT IM Last administered on 08/20/18at 09:37; Start 08/20/18 at 09:28; Stop 08/20/18 at 09:30; Status DC Paliperidone Palmitate (Invega Sustenna) 234 mg Q30D IM ; Start 08/27/18 at 09:00 Trazodone HCl (Desyrel) 50 mg QHSP PRN PO INSOMNIA; Start 08/10/18 at 06:45 Trazodone HCl (Desyrel) 50 mg QHSP PRN PO INSOMNIA; Start 08/10/18 at 09:45; Status UNV Allergies Coded Allergies: Amoxicillin (Verified Allergy, Intermediate, Hives , 11/01/13) Sulfa Drugs (Verified Allergy, Mild, Rash, fever, vomiting, 11/01/13) Azithromycin (Verified Allergy, Unknown, 11/18/16) interacts with DUSTIN Ac DO Aug 27, 2018 9:49 am
[2018-08-27 18:00] VITALS: BP 137/77
[2018-08-28] MEDS: LITHIUM CARBONATE 300MG/5ML(8MEQ/5ML)ORAL SOLUTION UDC PO SCH ×2 (09:14→20:24)
[2018-08-28] MEDS: HALOPERIDOL 10 MG TAB PO SCH (09:14)
[2018-08-28] MEDS: diphenhydrAMINE 50 MG CAP PO SCH ×3 (09:14→20:24)
[2018-08-28] MEDS: LORazepam 2 MG TAB PO SCH ×3 (09:14→20:24)
--- NOTE | 2018-08-28 10:05 | MHIPNPDOC ---
[facility] Progress Note Progress Note DATE OF SERVICE: 08/28/18 HISTORY: Patient is a 28 -year-old , female, with a history of schizoaffective d/o just d/c [facility] last week after 1.5 month stay for wang with psychosis who brought to ED yesterday by police after 911 called for pt acting bizarre and paranoid in the community. In the ED pt was agitated and had to be medicated. She appeared psychotic, talking to herself with fight of ideas and tangential thought. Pt utox postive amphetamines. [place] subtherapeutic at 0.20 when it was 0.99 upon d/c last week. Pt seen today and appearing psychotic with fight of ideas, hyperverbal speech, and tangential thoughts. Delusional with pseudocyesis. Pt is a poor historian with poor ability to participate adequately with interview most likely due to methamphetamine/amphetamine use and medication noncompliance. History gathered from previous records. VITAL SIGNS: See below. NEW TEST RESULTS: lithium level 0.47 CK 72, lfts and cbc wnl CURRENT MEDICATIONS: See below. MENTAL STATUS EXAMINATION: General Appearance: brushed hair, clean, appears stated age, hospital scrubs/clothing Build: average Demeanor: cooperative Eye Contact: average Activity: improving to average Behavior: cooperative, no longer impulsive, hyperactive Speech: reg rate, reg volume Mood: more euthymic Mood good Affect: improving to appropriate Thought Process: improving to linear/logical, concrete Thought Content (Delusions): inone reported Thought Content (Other): none reported Thought Content (Aggressive): none reported Perception (Hallucinations): none reported Perception (Other): none reported Cognition (Impairment of): fair attention/concentration, ability to abstract Cognition(Intelligence Est.): average Oriented: Awake, Alert, Oriented times three Insight: improving to fair Judgment: improving to fair Psychosis: none reported DIAGNOSES: Schizoaffective d/o Amphetamine/methamphetamine use d/o ASSESSMENT:No codes yesterday and thru the night. Pt continues to by compliant with all her medications causing wang and psychosis to greatly improve progressively to now being able to maintain fair attention and think in a more logical, linear manor. Insight and judgement are improving. Pt seen in office and states she's good. She is having no periods of manic, delusional, paranoid behavior due to medication compliance. She is able to follow redirection. Attention is improving to fair. She is cleaning and maintaining her hygiene on her own without aid. Denies delusions of pseudocyesis. Stressed to pt the importance of her staying compliant with all her medications and not using any type of illicit substance for her to remain stable and not need readmission should she be d/c next week as pt progressing improving to point that [facility] admission most likely not necessary. Pt agrees to be compliant on meds but wants lithium liquid to take outpatient as it's easier for her to take. Agreeable to haldol decanoate today for compliance once d/c. . MANAGEMENT PLAN: Continue current plan. Will give haldol decanoate 100mg im today for compliance, decrease oral haldol to 5mg tid after decanoate given. Check lithium level now that pt compliant with it. Medications: invega sustenna 234mg im qmonth next dose 08/30/18 haldol 5mg tid benadryl 50mg tid lithium 600mg bid atarax 25mg q6hr prn anxiety trazodone 50mg qhs prn insomnia ativan 2mg tid ZyPREXA ZYDIS 5 mg Q6HP PRN PO anxiety/agitation Haldol decanoate 100mg im today TIME SPENT: 30 minutes. Vital Signs Vital Signs Date Time Temp Pulse Resp B/P (MAP) Pulse Ox O2 Delivery O2 Flow Rate FiO2 08/27/18 18:00 98.2 88 16 137/77 (97) 08/26/18 08:32 Room Air Current Medications Current Medications Acetaminophen (Tylenol Tab) 650 mg Q6HP PRN PO HEADACHE or DISCOMFORT Last administered on 08/26/18at 13:40; Start 08/10/18 at 06:45 Acetaminophen (Tylenol Tab) 650 mg Q6HP PRN PO HEADACHE or DISCOMFORT; Start 08/10/18 at 09:45; Status UNV Al Hydrox/Mg Hydrox/Simethicone (Mylanta) 30 ml Q4HP PRN PO HEARTBURN/INDIGESTION; Start 08/10/18 at 06:45 Al Hydrox/Mg Hydrox/Simethicone (Mylanta) 30 ml Q4HP PRN PO HEARTBURN/INDIGESTION; Start 08/10/18 at 09:45; Status UNV Cetylpyridinium Chloride (Cepacol) 1 yadi Q4HP PRN PO COUGH Last administered on 08/21/18at 09:43; Start 08/21/18 at 09:30 Chlorpromazine HCl (Thorazine) 25 mg TID PO Last administered on 08/11/18at 21:00; Start 08/10/18 at 09:00; Stop 08/12/18 at 12:25; Status DC Chlorpromazine HCl (Thorazine) 50 mg TID PO Last administered on 08/13/18at 08:35; Start 08/12/18 at 16:00; Stop 08/13/18 at 08:56; Status DC Chlorpromazine HCl (Thorazine) 100 mg QID PO Last administered on 08/18/18at 12:55; Start 08/16/18 at 13:00; Stop 08/19/18 at 10:01; Status DC Chlorpromazine HCl (Thorazine) 100 mg STAT STAT IM Last administered on 08/16/18at 04:21; Start 08/16/18 at 04:14; Stop 08/16/18 at 04:16; Status DC Chlorpromazine HCl (Thorazine) 100 mg TID PO Last administered on 08/15/18at 09:52; Start 08/13/18 at 16:00; Stop 08/16/18 at 10:25; Status DC Diphenhydramine HCl (Benadryl) 50 mg STAT STAT IM Last administered on 08/12/18at 06:54; Start 08/12/18 at 06:40; Stop 08/12/18 at 06:44; Status DC Diphenhydramine HCl (Benadryl) 50 mg TID PO Last administered on 08/28/18at 09:14; Start 08/19/18 at 09:00 Diphenhydramine HCl (Benadryl) 100 mg STAT STAT IM Last administered on 08/20/18at 09:38; Start 08/20/18 at 09:28; Stop 08/20/18 at 09:30; Status DC Diphenhydramine HCl (Benadryl) 100 mg STAT STAT IM Last administered on 08/19/18at 14:30; Start 08/19/18 at 14:24; Stop 08/19/18 at 14:29; Status DC Fluphenazine HCl (Prolixin) 10 mg TID PO Last administered on 08/23/18at 16:05; Start 08/21/18 at 11:00; Stop 08/24/18 at 10:05; Status DC Haloperidol (Haldol) 5 mg STAT STAT IM Last administered on 08/12/18 06:54; Start 08/12/18 at 06:40; Stop 08/12/18 at 06:43; Status DC Haloperidol (Haldol) 10 mg STAT STAT IM Last administered on 08/19/18at 14:31; Start 08/19/18 at 14:24; Stop 08/19/18 at 14:29; Status DC Haloperidol (Haldol) 10 mg TID PO Last administered on 08/28/18 09:14; Start 08/24/18 at 09:00 Haloperidol (Haldol) 10 mg TID PO Last administered on 08/21/18at 09:42; Start 08/19/18 at 09:00; Stop 08/21/18 at 11:00; Status DC Home Med (Med Rec Complete!) ASDIRECTED XX ; Start 08/10/18 at 08:00; Stop 08/10/18 at 08:00; Status DC Hydroxyzine HCl (Atarax) 50 mg Q6HP PRN PO anxiety/agitation; Start 08/10/18 at 06:45; Stop 08/10/18 at 09:57; Status DC Hydroxyzine HCl (Atarax) 50 mg TIDP PRN PO ANXIETY/AGITATION; Start 08/10/18 at 09:45 [place] Carbonate (Eskalith Oral Solution) 600 mg BID PO Last administered on 08/28/18at 09:14; Start 08/17/18 at 21:00 [place] Carbonate ([place] Carbonate) 600 mg BID PO Last administered on 08/16/18at 10:11; Start 08/10/18 at 09:00; Stop 08/17/18 at 13:42; Status DC Lorazepam (Ativan) 2 mg STAT STAT IM Last administered on 08/20/18at 09:38; Start 08/20/18 at 09:28; Stop 08/20/18 at 09:30; Status DC Lorazepam (Ativan) 2 mg STAT STAT IM Last administered on 08/12/18 06:54; Start 08/12/18 at 06:40; Stop 08/12/18 at 06:43; Status DC Lorazepam (Ativan) 2 mg STAT STAT IM Last administered on 08/16/18at 04:21; Start 08/16/18 at 04:14; Stop 08/16/18 at 04:16; Status DC Lorazepam (Ativan) 2 mg STAT STAT IM Last administered on 08/16/18at 04:53; Start 08/16/18 at 04:45; Stop 08/16/18 at 04:47; Status DC Lorazepam (Ativan) 2 mg TID PO Last administered on 08/28/18at 09:14; Start 08/16/18 at 16:00 Magnesium Hydroxide (Milk Of Magnesia) 30 ml DAILYPRN PRN PO CONSTIPATION; Start 08/10/18 at 06:45 Magnesium Hydroxide (Milk Of Magnesia) 30 ml DAILYPRN PRN PO CONSTIPATION; Start 08/10/18 at 09:45; Status UNV Miscellaneous (Unresolved Clarification Entry) SEE LABEL COMMENTS DAILY XX ; Start 08/22/18 at 09:00; Stop 08/22/18 at 17:02; Status DC Non-Formulary Medication ( See Comment Field Below ) SEE COMMENTS SECTION 1T@10 XX ; Start 08/19/18 at 10:00; Stop 08/19/18 at 10:00; Status DC Non-Formulary Medication ( See Comment Field Below ) SEE LABEL COMMENTS DAILY XX ; Start 08/17/18 at 09:00; Stop 08/17/18 at 11:11; Status DC Olanzapine (ZyPREXA ZYDIS) 5 mg Q6HP PRN PO anxiety/agitation; Start 08/10/18 at 06:45 Olanzapine (Zyprexa Intramuscular) 10 mg STAT STAT IM Last administered on 08/20/18at 09:37; Start 08/20/18 at 09:28; Stop 08/20/18 at 09:30; Status DC Paliperidone Palmitate (Invega Sustenna) 234 mg Q30D IM Last administered on 08/27/18at 09:57; Start 08/27/18 at 09:00 Trazodone HCl (Desyrel) 50 mg QHSP PRN PO INSOMNIA; Start 08/10/18 at 06:45 Trazodone HCl (Desyrel) 50 mg QHSP PRN PO INSOMNIA; Start 08/10/18 at 09:45; Status UNV Allergies Coded Allergies: Amoxicillin (Verified Allergy, Intermediate, Hives , 11/01/13) Sulfa Drugs (Verified Allergy, Mild, Rash, fever, vomiting, 11/01/13) Azithromycin (Verified Allergy, Unknown, 11/18/16) interacts with DUSTIN Ac DO Aug 28, 2018 10:05 am
[2018-08-28] MEDS ORDERED: HALOPERIDOL DECANOATE 100 MG/ML VIAL (J1631) IM ONE (11:00)
[2018-08-28] MEDS: HALOPERIDOL 5 MG TAB PO SCH ×2 (15:25→20:24)
[2018-08-29] MEDS: LORazepam 2 MG TAB PO SCH ×3 (09:21→20:13)
[2018-08-29] MEDS: diphenhydrAMINE 50 MG CAP PO SCH ×3 (09:21→20:13)
[2018-08-29] MEDS: LITHIUM CARBONATE 300MG/5ML(8MEQ/5ML)ORAL SOLUTION UDC PO SCH ×2 (09:21→20:13)
[2018-08-29] MEDS: HALOPERIDOL 5 MG TAB PO SCH ×3 (09:21→20:13)
[2018-08-29 18:00] VITALS: BP 136/77
[2018-08-30] MEDS: HALOPERIDOL 5 MG TAB PO SCH ×3 (09:30→20:20)
[2018-08-30] MEDS: LITHIUM CARBONATE 300MG/5ML(8MEQ/5ML)ORAL SOLUTION UDC PO SCH ×2 (09:30→20:19)
[2018-08-30] MEDS: LORazepam 2 MG TAB PO SCH ×3 (09:30→20:20)
[2018-08-30] MEDS: diphenhydrAMINE 50 MG CAP PO SCH ×3 (09:30→20:20)
[2018-08-30 18:05] VITALS: BP 125/86
[2018-08-31] MEDS: LITHIUM CARBONATE 300MG/5ML(8MEQ/5ML)ORAL SOLUTION UDC PO SCH ×2 (10:16→19:46)
[2018-08-31] MEDS: diphenhydrAMINE 50 MG CAP PO SCH ×3 (10:17→19:47)
[2018-08-31] MEDS: HALOPERIDOL 5 MG TAB PO SCH ×3 (10:17→19:47)
[2018-08-31] MEDS: LORazepam 2 MG TAB PO SCH ×3 (10:17→19:47)
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
[2018-09-01] MEDS: HALOPERIDOL 5 MG TAB PO SCH ×3 (09:23→20:06)
[2018-09-01] MEDS: LITHIUM CARBONATE 300MG/5ML(8MEQ/5ML)ORAL SOLUTION UDC PO SCH ×2 (09:23→20:06)
[2018-09-01] MEDS: diphenhydrAMINE 50 MG CAP PO SCH ×3 (09:23→20:06)
[2018-09-01] MEDS: LORazepam 2 MG TAB PO SCH ×3 (09:23→20:06)
--- NOTE | 2018-09-01 11:01 | MHIPNPDOC ---
[facility] Progress Note Progress Note DATE OF SERVICE: 09/01/18 HISTORY: Patient is a 28 -year-old , female, with a history of schizoaffective d/o just d/c [facility] last week after 1.5 month stay for wang with psychosis who brought to ED yesterday by police after 911 called for pt acting bizarre and paranoid in the community. In the ED pt was agitated and had to be medicated. She appeared psychotic, talking to herself with fight of ideas and tangential thought. Pt utox postive amphetamines. [place] subtherapeutic at 0.20 when it was 0.99 upon d/c last week. Pt seen today and appearing psychotic with fight of ideas, hyperverbal speech, and tangential thoughts. Delusional with pseudocyesis. Pt is a poor historian with poor ability to participate adequately with interview most likely due to methamphetamine/amphetamine use and medication noncompliance. History gathered from previous records. VITAL SIGNS: See below. NEW TEST RESULTS: lithium level 0.97 therapeutic CURRENT MEDICATIONS: See below. MENTAL STATUS EXAMINATION: General Appearance: brushed hair, clean, appears stated age, hospital scrubs/clothing Build: average Demeanor: cooperative Eye Contact: average Activity: improving to average Behavior: cooperative, no longer impulsive, hyperactive Speech: reg rate, reg volume Mood: more euthymic Mood good Affect: improving to appropriate Thought Process: improving to linear/logical, concrete Thought Content (Delusions): none reported Thought Content (Other): none reported Thought Content (Aggressive): none reported Perception (Hallucinations): none reported Perception (Other): none reported Cognition (Impairment of): fair attention/concentration, ability to abstract Cognition(Intelligence Est.): average Oriented: Awake, Alert, Oriented times three Insight: improving to fair Judgment: improving to fair Psychosis: none reported DIAGNOSES: Schizoaffective d/o Amphetamine/methamphetamine use d/o ASSESSMENT:No codes yesterday and thru the night. Pt continues to by compliant with all her medications causing wang and psychosis to greatly improve progressively to now being able to maintain good attention and think in a more logical, linear manor. Insight and judgement are improving. Pt seen with d/c wedding planner to discuss d/c tomorrow to [facility] for emergency housing and then [facility] housing. Greatly emphasized to pt that it is not a good idea for her to stay with a friend as that friend also has psychiatric problems. Pt had been staying with a friend prior to this admission which which led to med noncompliance, substance use, and decompensation. Pt is agreeable and acknowledges she understands reasonings. She is having no periods of manic, delusional, paranoid behavior due to medication compliance. She is able to follow redirection. Attention is improving to good. She is cleaning and maintaining her hygiene on her own without aid. Denies delusions of pseudocyesis. Stressed to pt the importance of her staying compliant with all her medications and not using any type of illicit substance for her to remain stable. Pt agrees to be compliant on meds but wants lithium liquid to take outpatient as it's easier for her to take. MANAGEMENT PLAN: Continue current plan. Medications: invega sustenna 234mg im qmonth next dose 08/30/18 haldol 5mg tid benadryl 50mg tid lithium 600mg bid atarax 25mg q6hr prn anxiety trazodone 50mg qhs prn insomnia ativan 2mg tid ZyPREXA ZYDIS 5 mg Q6HP PRN PO anxiety/agitation Haldol decanoate 100mg im 08/28/18 TIME SPENT: 30 minutes. Vital Signs Vital Signs Date Time Temp Pulse Resp B/P (MAP) Pulse Ox O2 Delivery O2 Flow Rate FiO2 09/01/18 07:00 14 08/30/18 18:05 98.7 110 125/86 (99) 08/26/18 08:32 Room Air Current Medications Current Medications Acetaminophen (Tylenol Tab) 650 mg Q6HP PRN PO HEADACHE or DISCOMFORT Last administered on 08/26/18at 13:40; Start 08/10/18 at 06:45 Acetaminophen (Tylenol Tab) 650 mg Q6HP PRN PO HEADACHE or DISCOMFORT; Start 08/10/18 at 09:45; Status UNV Al Hydrox/Mg Hydrox/Simethicone (Mylanta) 30 ml Q4HP PRN PO HEARTBURN/INDIGESTION; Start 08/10/18 at 06:45 Al Hydrox/Mg Hydrox/Simethicone (Mylanta) 30 ml Q4HP PRN PO HEARTBURN/INDIGESTION; Start 08/10/18 at 09:45; Status UNV Cetylpyridinium Chloride (Cepacol) 1 yadi Q4HP PRN PO COUGH Last administered on 08/21/18at 09:43; Start 08/21/18 at 09:30 Chlorpromazine HCl (Thorazine) 25 mg TID PO Last administered on 08/11/18at 21:00; Start 08/10/18 at 09:00; Stop 08/12/18 at 12:25; Status DC Chlorpromazine HCl (Thorazine) 50 mg TID PO Last administered on 08/13/18at 08:35; Start 08/12/18 at 16:00; Stop 08/13/18 at 08:56; Status DC Chlorpromazine HCl (Thorazine) 100 mg QID PO Last administered on 08/18/18at 12:55; Start 08/16/18 at 13:00; Stop 08/19/18 at 10:01; Status DC Chlorpromazine HCl (Thorazine) 100 mg STAT STAT IM Last administered on 08/16/18at 04:21; Start 08/16/18 at 04:14; Stop 08/16/18 at 04:16; Status DC Chlorpromazine HCl (Thorazine) 100 mg TID PO Last administered on 08/15/18at 09:52; Start 08/13/18 at 16:00; Stop 08/16/18 at 10:25; Status DC Diphenhydramine HCl (Benadryl) 50 mg STAT STAT IM Last administered on 08/12/18at 06:54; Start 08/12/18 at 06:40; Stop 08/12/18 at 06:44; Status DC Diphenhydramine HCl (Benadryl) 50 mg TID PO Last administered on 09/01/18at 09:23; Start 08/19/18 at 09:00 Diphenhydramine HCl (Benadryl) 100 mg STAT STAT IM Last administered on 08/20/18at 09:38; Start 08/20/18 at 09:28; Stop 08/20/18 at 09:30; Status DC Diphenhydramine HCl (Benadryl) 100 mg STAT STAT IM Last administered on 08/19/18at 14:30; Start 08/19/18 at 14:24; Stop 08/19/18 at 14:29; Status DC Fluphenazine HCl (Prolixin) 10 mg TID PO Last administered on 08/23/18 16:05; Start 08/21/18 at 11:00; Stop 08/24/18 at 10:05; Status DC Haloperidol (Haldol) 5 mg STAT STAT IM Last administered on 08/12/18 06:54; Start 08/12/18 at 06:40; Stop 08/12/18 at 06:43; Status DC Haloperidol (Haldol) 5 mg TID PO Last administered on 09/01/18 09:23; Start 08/28/18 at 16:00 Haloperidol (Haldol) 10 mg STAT STAT IM Last administered on 08/19/18 14:31; Start 08/19/18 at 14:24; Stop 08/19/18 at 14:29; Status DC Haloperidol (Haldol) 10 mg TID PO Last administered on 08/28/18at 09:14; Start 08/24/18 at 09:00; Stop 08/28/18 at 10:06; Status DC Haloperidol (Haldol) 10 mg TID PO Last administered on 08/21/18at 09:42; Start 08/19/18 at 09:00; Stop 08/21/18 at 11:00; Status DC Home Med (Med Rec Complete!) ASDIRECTED XX ; Start 08/10/18 at 08:00; Stop 08/10/18 at 08:00; Status DC Hydroxyzine HCl (Atarax) 50 mg Q6HP PRN PO anxiety/agitation; Start 08/10/18 at 06:45; Stop 08/10/18 at 09:57; Status DC Hydroxyzine HCl (Atarax) 50 mg TIDP PRN PO ANXIETY/AGITATION; Start 08/10/18 at 09:45 [place] Carbonate ([place]al[place] Oral Solution) 600 mg BID PO Last administered on 09/01/18 09:23; Start 08/17/18 at 21:00 [place] Carbonate ([place] Carbonate) 600 mg BID PO Last administered on 08/16/18at 10:11; Start 08/10/18 at 09:00; Stop 08/17/18 at 13:42; Status DC Lorazepam (Ativan) 2 mg STAT STAT IM Last administered on 08/20/18at 09:38; Start 08/20/18 at 09:28; Stop 08/20/18 at 09:30; Status DC Lorazepam (Ativan) 2 mg STAT STAT IM Last administered on 08/12/18at 06:54; Start 08/12/18 at 06:40; Stop 08/12/18 at 06:43; Status DC Lorazepam (Ativan) 2 mg STAT STAT IM Last administered on 08/16/18at 04:21; Start 08/16/18 at 04:14; Stop 08/16/18 at 04:16; Status DC Lorazepam (Ativan) 2 mg STAT STAT IM Last administered on 08/16/18at 04:53; Start 08/16/18 at 04:45; Stop 08/16/18 at 04:47; Status DC Lorazepam (Ativan) 2 mg TID PO Last administered on 09/01/18at 09:23; Start 08/29/18 at 21:00 Lorazepam (Ativan) 2 mg TID PO Last administered on 08/29/18at 16:06; Start 08/16/18 at 16:00; Stop 08/29/18 at 16:51; Status DC Magnesium Hydroxide (Milk Of Magnesia) 30 ml DAILYPRN PRN PO CONSTIPATION; Sta rt 08/10/18 at 06:45 [place] Hydroxide (Milk Of Magnesia) 30 ml DAILYPRN PRN PO CONSTIPATION; Start 08/10/18 at 09:45; Status UNV Miscellaneous (Unresolved Clarification Entry) SEE LABEL COMMENTS DAILY XX ; Start 08/22/18 at 09:00; Stop 08/22/18 at 17:02; Status DC Miscellaneous (Unresolved Clarification Entry) SEE LABEL COMMENTS DAILY XX ; Start 08/28/18 at 09:00; Stop 08/29/18 at 10:31; Status DC Miscellaneous (Unresolved Clarification Entry) SEE LABEL COMMENTS DAILY XX ; Start 08/29/18 at 09:00; Stop 08/29/18 at 17:21; Status DC Non-Formulary Medication ( See Comment Field Below ) SEE COMMENTS SECTION 1T@10 XX ; Start 08/19/18 at 10:00; Stop 08/19/18 at 10:00; Status DC Non-Formulary Medication ( See Comment Field Below ) SEE LABEL COMMENTS DAILY XX ; Start 08/17/18 at 09:00; Stop 08/17/18 at 11:11; Status DC Olanzapine (ZyPREXA ZYDIS) 5 mg Q6HP PRN PO anxiety/agitation; Start 08/10/18 at 06:45 Olanzapine (Zyprexa Intramuscular) 10 mg STAT STAT IM Last administered on 08/20/18at 09:37; Start 08/20/18 at 09:28; Stop 08/20/18 at 09:30; Status DC Paliperidone Palmitate (Invega Sustenna) 234 mg Q30D IM Last administered on 08/27/18at 09:57; Start 08/27/18 at 09:00 Trazodone HCl (Desyrel) 50 mg QHSP PRN PO INSOMNIA; Start 08/10/18 at 06:45 Trazodone HCl (Desyrel) 50 mg QHSP PRN PO INSOMNIA; Start 08/10/18 at 09:45; Status UNV Allergies Coded Allergies: Amoxicillin (Verified Allergy, Intermediate, Hives , 11/01/13) Sulfa Drugs (Verified Allergy, Mild, Rash, fever, vomiting, 11/01/13) Azithromycin (Verified Allergy, Unknown, 11/18/16) interacts with DUSTIN Ac DO Sep 01, 2018 11:01 am
[2018-09-02] MEDS: HALOPERIDOL 5 MG TAB PO SCH (09:08)
[2018-09-02] MEDS: diphenhydrAMINE 50 MG CAP PO SCH (09:08)
[2018-09-02] MEDS: LITHIUM CARBONATE 300MG/5ML(8MEQ/5ML)ORAL SOLUTION UDC PO SCH (09:08)
[2018-09-02] MEDS: LORazepam 2 MG TAB PO SCH (09:08)
--- NOTE | 2018-09-02 09:54 | MHDSPDOC ---
[facility] Discharge Summary Discharge Summary DATE OF ADMISSION: Aug 10, 2018 at 6:34 am DATE OF DISCHARGE: Sep 02, 2018 DISCHARGE DIAGNOSES: 1. Schizoaffective D/O 2. Amphetamine/methamphetamine use d/o REASON FOR ADMISSION: Patient is a 28 -year-old , female, with a history of schizoaffective d/o just d/c [facility] last week after 1.5 month stay for wang with psychosis who brought to ED yesterday by police after 911 called for pt acting bizarre and paranoid in the community. In the ED pt was agitated and had to be medicated. She appeared psychotic, talking to herself with fight of ideas and tangential thought. Pt utox postive amphetamines. [place] subtherapeutic at 0.20 when it was 0.99 upon d/c last week. Pt seen today and appearing psychotic with fight of ideas, hyperverbal speech, and tangential thoughts. Delusional with pseudocyesis. Pt is a poor historian with poor ability to participate adequately with interview most likely due to methamphetamine/amphetamine use and medication noncompliance. History gathered from previous records. CONSULTANTS INVOLVED: none TEST RESULTS: lithium level 0.97 therapeutic HOSPITAL COURSE: Pt was admitted to [facility], seen for psychiatric assessment and started on thorazine 100mg qid and lithium 600mg bid that she refused to take at first but would request to take thorazine 100mg IM and ativan 2mg IM for agitation/psychosis. Pt had to be given chemical and mechanical restraints multiple times during her admission for wang/psychosis/agitation. Pt was also very inconsistent with her compliance with medication refusing it frequently due to delusions it would poison her or she was allergic to it. Thorazine had to be discontined due to elevation on Ck greater than 600. CK decreased to normal limits once thorazine discontinued. She was started on haldol 10mg tid instead that she tolerated well and found beneficial once she started maintaining her compliance with medication. Her lithium was changed to liquid dosing which g reatly aided in her compliance of lithium as she didn't like to take the pills. With tolerance and benefit of haldol that improved psychosis she was administer haldol decanoate 100mg im that she was agreeable to, tolerated, and appeared to be beneficial. After haldol decanoate administered her oral haldol was decreased to 5mg tid that she tolerated w/o any emergence of psychosis. Her wang improved with lithium compliance and her lithium level was therapeutic at 0.97 upon d/c. Pt's symptoms of wang and psychosis improved greatly with medication treatment. During her stay she was provided zyprexa zydis 5mg q6hr prn agitation, ativan 2mg q6hr prn anxiety/agitation, vistaril 25mg q4hr prn anxiety, benadyl 50mg q6hr prn anxiety, and trazodone 50mg qhs prn insomnia. Pt found her medications beneficial and tolerated them well. She attended groups daily during her stay when her symptoms improved. Her symptoms improved greatly with treatment. On day of discharge she denied depression, anxiety, insomnia, SI/HI, hallucinations, delusions, wang, psychosis. She was discharged to [facility] for emergency housing with follow-up at [facility]. It was emphasized to pt multiple times to stay compliant on her medications and not use substances to prevent rehospitalization and to maintain psychiatric stability. She felt safe for discharge DISCHARGE ASSESSMENT: Pt continues to by compliant with all her medications causing wang and psychosis to greatly improve progressively to now being able to maintain good attention and think in a more logical, linear manor. Insight and judgement are improving. Pt seen today and states her mood is good, thoughts are clear, and she looking forward to being discharged to [facility] for emergency housing with eventual [facility] housing in the future. Greatly emphasized to pt that it is not a good idea for her to stay with a friend as that friend also has psychiatric problems. Pt had been staying with a friend prior to this admission which which led to med noncompliance, substance use, and decompensation. Pt is agreeable and acknowledges she understands reasonings. She is having no periods of manic, delusional, paranoid behavior due to medication compliance. She is able to follow redirection. Attention is good. She is cleaning and maintaining her hygiene on her own without aid. Denies delusions of pseudocyesis. Stressed to pt the importance of her staying compliant with all her medications and not using any type of illicit substance for her to remain stable. Pt agrees to be compliant on meds and sober for illicit substances. She feels safe to be discharged to [facility] for housing services. MENTAL STATUS EXAMINATION ON DISCHARGE: General Appearance: brushed hair, clean, appears stated age, hospital scrubs/clothing Build: average Demeanor: cooperative Eye Contact: average Activity: improving to average Behavior: cooperative, no longer impulsive, hyperactive Speech: reg rate, reg volume Mood: euthymic Mood good Affect: euthymic, appropriate Thought Process: linear/logical, concrete Thought Content (Delusions): none reported Thought Content (Other): none reported Thought Content (Aggressive): none reported Perception (Hallucinations): none reported Perception (Other): none reported Cognition (Impairment of): good Cognition(Intelligence Est.): average Oriented: Awake, Alert, Oriented times three Insight: fair to good Judgment: fair to good Psychosis: none reported MEDICATIONS ON DISCHARGE: invega sustenna 234mg im qmonth next dose 08/30/18 haldol 5mg tid benadryl 50mg tid lithium 600mg bid atarax 25mg q6hr prn anxiety trazodone 50mg qhs prn insomnia Haldol decanoate 100mg im 08/28/18 PLAN/FOLLOWUP ARRANGEMENTS: D/c home with follow-up at [facility]. The amount of time spent in the coordination of care for this patient was approximately 30 minutes. Vital Signs/I&Os Vital Signs Date Time Temp Pulse Resp B/P (MAP) Pulse Ox O2 Delivery O2 Flow Rate FiO2 09/01/18 18:26 16 08/30/18 18:05 98.7 110 125/86 (99) Medications Scheduled Chlorpromazine HCl (Chlorpromazine HCl) 25 Mg Tab, 25 MG PO TID, (Reported) Hydroxyzine Pamoate (Hydroxyzine Pamoate) 50 Mg Cap, 50 MG PO TID for 30 Days, (Reported) [place] Carbonate ([place] Carbonate) 300 Mg Cap, 600 MG PO BID, (Reported) Paliperidone Palmitate (Invega Sustenna) 234 Mg/1.5 Ml Inj, 234 MG IM QMONTH, (Reported) Scheduled PRN Trazodone HCl (Trazodone HCl) 50 Mg Tab, 50 MG PO QHS PRN for INSOMNIA, (Reported) Miscellaneous Medications [Patient Comments] , (Reported) PATIENT IS POOR HISTORIAN. UNABLE AT THIS TIME TO HAVE A CONVERSATION ABOUT MEDICATION HISTORY Allergies Coded Allergies: Amoxicillin (Verified Allergy, Intermediate, Hives , 11/01/13) Sulfa Drugs (Verified Allergy, Mild, Rash, fever, vomiting, 11/01/13) Azithromycin (Verified Allergy, Unknown, 11/18/16) interacts with DUSTIN Ac DO Sep 02, 2018 9:54 am
[2018-09-02] MEDS ORDERED: DIPH50CA PO (10:00)
[2018-09-02] MEDS ORDERED: LITHIUM PO (10:00)
[2018-09-02] MEDS ORDERED: TRAZO50TA PO (10:00)
[2018-09-02] MEDS ORDERED: HALO5TA PO (10:00)
[2018-09-02] MEDS ORDERED: HALD100I2 IM (10:00)
[2018-09-02] MEDS ORDERED: HYDRO50TAB PO (10:00)
[2018-09-02] MEDS ORDERED: INVE234I IM (10:00)
[2018-09-02] MEDS ORDERED: KLON0.5T PO (10:01)
== END 2018-09-02 11:23 | disposition home or self-care (01) | DRG 885 ==
LOC: M ED 01:42 → M ED INP 06:34 → M PSY 08:35
PROVIDERS: ADMIT Psychiatry & Neurology Psychiatry; ATTEND Psychiatry & Neurology Psychiatry
DX: F25.0 Schizoaffective disorder, bipolar type (principal); F17.210 Nicotine dependence, cigarettes, uncomplicated; F15.10 Other stimulant abuse, uncomplicated; Z79.899 Other long term (current) drug therapy; Z88.0 Allergy status to penicillin; Z88.2 Allergy status to sulfonamides; Z88.1 Allergy status to other antibiotic agents; Z91.14 Patient's other noncompliance with medication regimen

== ENCOUNTER 2018-09-08 23:18 | Inpatient (IN) | payer MEDICARE, MEDICAID ==
[~2018-09-08] VITALS: Ht 160 cm; Wt 76.0 kg
[~2018-09-08 23:18] MED LIST changes: +DIPH50CA PO; +HALD100I2 IM; +HALO5TA PO; +HYDR50CA2 PO; +HYDRO50TAB PO; +KLON0.5T PO; +LITHIUM PO; +PATIENT COMMENTS
[2018-09-08] MEDS ORDERED: chlorproMAZINE 25 MG TAB (Q0161) PO ONE (23:45)
[2018-09-09 00:33] LABS: HEMATOCRIT 39.5 % (36.0-47.0); MEAN CORPUSCULAR HEMOGLOBIN 27.1 pg (27.0-33.0); MEAN CORPUSCULAR HGB CONC 32.9 g/dl (32.0-36.5); MEAN CORPUSCULAR VOLUME 82.5 fl (80.0-96.0); PLATELET COUNT, AUTOMATED 422 10^3/uL (150-450); RED BLOOD COUNT 4.79 10^6/uL (4.00-5.40); WHITE BLOOD COUNT 11.5 10^3/uL (4.0-10.0)
[2018-09-09 00:46] LABS: AMPHETAMINES LEVEL URINE NEGATIVE (NEGATIVE); BARBITURATES URINE NEGATIVE (NEGATIVE); BENZODIAZEPINES URINE NEGATIVE (NEGATIVE); CANNABINOIDS URINE POSITIVE (NEGATIVE); COCAINE METABOLITE URINE NEGATIVE (NEGATIVE); METHADONE URINE NEGATIVE (NEGATIVE); OPIATES URINE NEGATIVE (NEGATIVE); PHENCYCLIDINE URINE NEGATIVE (NEGATIVE)
[2018-09-09 00:55] LABS: HCG, SERUM QUALITATIVE NEGATIVE (NEGATIVE)
[2018-09-09 00:56] LABS: ACETAMINOPHEN LEVEL < 2.0 UG/ML (10.0-30.0); ALT/SGPT 26 U/L (12-78); BILIRUBIN,DIRECT 0.1 MG/DL (0.0-0.2); BILIRUBIN,TOTAL 0.3 MG/DL (0.2-1.0); BLOOD UREA NITROGEN 8 MG/DL (7-18); CALCIUM LEVEL 8.1 MG/DL (8.5-10.1); CARBON DIOXIDE LEVEL 25 MEQ/L (21-32); CHLORIDE LEVEL 105 MEQ/L (98-107); CREATININE FOR GFR 0.91 MG/DL (0.55-1.30); ETHYL ALCOHOL (ETHANOL) 0.006 % (0.000-0.010); GLOMERULAR FILTRATION RATE > 60.0 (>60); GLUCOSE, FASTING 99 MG/DL (70-100); POTASSIUM SERUM 4.1 MEQ/L (3.5-5.1); SALICYLATE LEVEL < 1.7 MG/DL (5.0-30.0); SODIUM LEVEL 139 MEQ/L (136-145); TOTAL PROTEIN 7.3 GM/DL (6.4-8.2)
[2018-09-09 01:23] LABS: LITHIUM LEVEL < 0.20 MEQ/L (0.60-1.20)
[2018-09-09] MEDS ORDERED: HALOPERIDOL 10 MG TAB PO ONE (07:30)
[2018-09-09] MEDS ORDERED: diphenhydrAMINE 50 MG CAP PO ONE (07:30)
[2018-09-09] MEDS ORDERED: clonazePAM 0.5 MG TAB PO ONE (07:30)
[2018-09-09] MEDS ORDERED: MAALOX 30 ML SUSP *UDC PO PRN (14:30)
[2018-09-09] MEDS ORDERED: OLANZapine 5 MG TAB PO PRN (14:30)
[2018-09-09] MEDS ORDERED: MOM 30ML SUSPENSION UDC PO PRN (14:30)
[2018-09-09] MEDS ORDERED: HALOPERIDOL 5 MG TAB PO PRN (14:30)
[2018-09-09] MEDS: clonazePAM 0.5 MG TAB PO SCH ×2 (15:40→21:00)
[2018-09-09 15:45] VITALS: BP 124/79
[2018-09-09] MEDS: diphenhydrAMINE 50 MG CAP PO SCH ×2 (15:50→21:00)
[2018-09-09] MEDS: chlorproMAZINE 25 MG TAB (Q0161) PO SCH ×2 (16:31→21:00)
[2018-09-09 18:00] VITALS: BP 124/79
[2018-09-09] MEDS: LITHIUM CARBONATE 600 MG CAP PO SCH (21:00)
[2018-09-09] MEDS: ACETAMINOPHEN TAB 650MG DOSE (2X325MG) PO PRN (21:32)
[2018-09-10 06:00] VITALS: BP 128/70
[2018-09-10] MEDS: clonazePAM 0.5 MG TAB PO SCH ×3 (08:00→21:32)
[2018-09-10] MEDS: LITHIUM CARBONATE 600 MG CAP PO SCH (08:00)
--- NOTE | 2018-09-10 09:19 | HPEPDOC ---
[facility] Medical History & Physical Date of Admission Sep 10, 2018 History and Physical PCP: None ATTENDING: Dr. Mina Arroyo HPI: 28yoF admitted to [facility] for Bipolar disorder, being medically examined today. The patient had apparently been brought to the emergency department by police officers after attempting to get into someone else's apartment, walking with numerous bags and was found huddling in a store front doorway according to emergency department records. This morning the patient is noted to be ambulating around the hallways, agitated at times. The patient declines to participate with history of physical exam at this time. History is taken from the chart. PMHx: Bipolar disorder Schizoaffective disorder Depression PTSD ADHD Chronic knee pain Chronic back pain PSHX: ear graft 1996 Tympanostomy tubes SOCHX: Resides in: [facility] Marital Status: Single Kids: [id number] son Employment: Unemployed Tobacco use: 10 per day ETOH: denies Illicit Drugs: Denies IV Drug Use: Denies Tattoos done unprofessionally: Denies FAMHX: Mother: Alive, well Father: Alive, well Children: Alive, well ROS: Patient declines to participate with history at this time. PE: The patient is observed ambulating through the halls, agitated at times. Patient declines to participate with physical exam at this time. Vital Signs Label Value Date Time Patient Temperature 98.1 degrees F 09/10/18 0600 Temperature Source Temporal 09/10/18 0600 Pulse 62 09/10/18 0600 Respiratory Rate 16 bpm 09/10/18 0600 Blood Pressure Assessment 128/70 (89) 09/10/18 0600 Bedside Pulse Oximetry 98 % 09/09/18 1446 Item Value Date Time Oxygen Delivery Method Room Air 09/09/18 1545 EKG: Normal sinus rhythm with sinus arrhythmia Nonspecific ST-T wave abnormalities No significant change when compared to prior tracing of 06/04/2014 Electronically Signed On 04-07-2016 8:52:59 EDT by Leland Felix: 26yoF admitted to [facility] for unspecified psychotic disorder. 1. Psych. Plan per Psychiatry. EKG on file. 2. History of Chronic knee pain and chronic back pain. Tylenol as needed. 3. Arrange Follow up with PCP on discharge. 4. Leukocytosis. Patient is afebrile. No apparent symptoms. Recheck CBC in a.m. Possible stress response. 5. Staff member Ed was present during attempt to complete history and physical exam. Vital Signs Vital Signs Date Time Temp Pulse Resp B/P (MAP) Pulse Ox O2 Delivery O2 Flow Rate FiO2 09/10/18 06:00 98.1 62 16 128/70 (89) 09/09/18 15:45 Room Air 09/09/18 14:46 98 Laboratory Data Labs 24H Item Value Date Time White Blood Count 11.5 10^3/uL H 09/09/18 0011 Red Blood Count 4.79 10^6/uL 09/09/18 0011 Hemoglobin 13.0 g/dl 09/09/18 0011 Hematocrit 39.5 % 09/09/18 0011 Mean Corpuscular Volume 82.5 fl 09/09/18 0011 Mean Corpuscular Hemoglobin 27.1 pg 09/09/18 0011 Mean Corpuscular Hemoglobin Concent 32.9 g/dl 09/09/18 0011 Red Cell Distribution Width 14.1 % 09/09/18 0011 Platelet Count 422 10^3/uL 09/09/18 0011 Sodium Level 139 MEQ/L 09/09/18 0011 Potassium Level 4.1 MEQ/L 09/09/18 0011 Chloride Level 105 MEQ/L 09/09/18 0011 Carbon Dioxide Level 25 MEQ/L 09/09/18 0011 Anion Gap 9 MEQ/L 09/09/18 0011 Blood Urea Nitrogen 8 MG/DL 09/09/18 0011 Creatinine 0.91 MG/DL 09/09/18 0011 Glomerular Filtration Rate > 60.0 09/09/18 0011 Fasting Glucose 99 MG/DL 09/09/18 0011 Calcium Level 8.1 MG/DL L 09/09/18 0011 Total Bilirubin 0.3 MG/DL 09/09/18 0011 Direct Bilirubin 0.1 MG/DL 09/09/18 0011 Aspartate Amino Transf (AST/SGOT) 25 U/L 09/09/18 0011 Alanine Aminotransferase (ALT/SGPT) 26 U/L 09/09/18 0011 Alkaline Phosphatase 115 U/L 09/09/18 0011 Total Protein 7.3 GM/DL 09/09/18 0011 Albumin 4.0 GM/DL 09/09/18 0011 Albumin/Globulin Ratio 1.21 09/09/1810 Thyroid Stimulating Hormone (TSH) 2.220 uIU/ML 09/09/1810 Human Chorionic Gonadotropin, Qual NEGATIVE 09/09/1810 Salicylates Level < 1.7 MG/DL L 09/09/1810 Urine Opiates Screen NEGATIVE 09/09/1810 Urine Methadone Screen NEGATIVE 09/09/1810 Acetaminophen Level < 2.0 UG/ML L 09/09/1810 Urine Barbiturates Screen NEGATIVE 09/09/1810 Urine Phencyclidine Screen NEGATIVE 09/09/1810 Urine Amphetamines Screen NEGATIVE 09/09/1810 Urine Benzodiazepines Screen NEGATIVE 09/09/1810 Blunt Level < 0.20 MEQ/L L 09/09/1810 Urine Cocaine Metabolite Screen NEGATIVE 09/09/1810 Urine Cannabinoids Screen POSITIVE H 09/09/1810 Ethyl Alcohol Level 0.006 % 09/09/1810 Home Medications Scheduled Clonazepam (Klonopin) 0.5 Mg Tab, 0.5 MG PO TID for anxiety Diphenhydramine HCl (Diphenhydramine HCl) 50 Mg Cap, 50 MG PO TID for anxiety Haloperidol (Haloperidol) 5 Mg Tab, 5 MG PO TID for psychosis Haloperidol Decanoate (Haldol Decanoate 100) 100 Mg/Ml Inj, 100 MG IM QMONTH for psychosis Paliperidone Palmitate (Invega Sustenna) 234 Mg/1.5 Ml Inj, 234 MG IM QMONTH Paliperidone Palmitate (Invega Sustenna) 234 Mg/1.5 Ml Inj, 234 MG IM Q30D for psychosis [[place] Oral Solution] 300 MG/5 ML SOLN, 600 MG PO BID for mood Scheduled PRN Hydroxyzine HCl (Hydroxyzine HCl) 50 Mg Tab, 50 MG PO TIDP PRN for ANXIETY/AGITATION Trazodone HCl (Trazodone HCl) 50 Mg Tab, 50 MG PO QHSP PRN for INSOMNIA Miscellaneous Medications [Patient Comments] PATIENT IS POOR HISTORIAN. UNABLE AT THIS TIME TO HAVE A CONVERSATION ABOUT MEDICATION HISTORY Allergies Coded Allergies: Amoxicillin (Verified Allergy, Intermediate, Hives , 11/01/13) Sulfa Drugs (Verified Allergy, Mild, Rash, fever, vomiting, 11/01/13) Azithromycin (Verified Allergy, Unknown, 11/18/16) interacts with Brittney Shrestha Sep 10, 2018 09:19
[2018-09-10] MEDS: diphenhydrAMINE 50 MG CAP PO SCH ×3 (09:26→21:00)
[2018-09-10] MEDS: chlorproMAZINE 25 MG TAB (Q0161) PO SCH (09:26)
[2018-09-10] MEDS ORDERED: OLANZapine INTRAMUSCULAR 10 MG VIAL (S0166) IM ONE (09:30)
[2018-09-10] MEDS ORDERED: LORazepam 2 MG/ML VIAL (J2060) IM ONE (09:30)
--- NOTE | 2018-09-10 09:54 | MHHPEPDOC ---
General Date Of Admission: Sep 09, 2018 Legal Status: 9.39 Chief Complaint "psychosis" History of Present Illness HISTORY OF THE PRESENT ILLNESS: Patient is a 28 -year-old , female, with a history of schizoaffective d/o just d/c [facility] last week after 1 month stay for linda with psychosis 09/02/18 who brought to ED yesterday by police under9.41 order after friend called police stating pt was cutting herself and threatening suicide. Pt ED record pt attempted to break into an appt and was then spotted walking down road with numerous bags, found outside storefront huddled in the the cold having no place to go. Per ED, when pt arrived she was floridly psychotic, bizarre, talking to self in room, calling staff numerous names, having flight of ideas, rapid speech, tangential, and easily distracted. Pt did except medications in ED when offered. Pt also spit water on the floor. Pt utox positive cannabis. [place] subtherapeutic at 0.20 when it was 0.97 upon d/c last week. Pt obviously noncompliant on her medication again and abusing substances. Pt seen today and appearing psychotic with fight of ideas, hyperverbal speech, and tangential thoughts. Delusional with pseudocyesis and stating she has undiagnosed epilepsy. Pt behaviorally reactive throwing water in med room. Ag reeable to im zyprexa and ativan x1 when offered. Pt is a poor historian with poor ability to participate adequately with interview most likely due to linda/psychosis and medication noncompliance. History gathered from previous records. Psychiatric Review of Systems Depression (2 or more weeks): denies Linda (4 or more days of): irritable/elevated mood, expansive mood, grandiosity, decreased need for sleep, talkativity, pressured, flight of ideas, distractibility, goal-directed activities, engages in risky behavior Psychosis: auditory hallucination, delusions, paranoia, disorganization PTSD: denies Anxiety: situational anxiety, stressor related anxiety Anxiety/ 6 months or more of: restlessness, keyed up, difficulty concentrating, irritability Past Psychiatric History Previous Psychiatric Diagnosis: Schizoaffective d/o Previous Psychiatric Admissions: previous admissions [facility] 11/25 and 07/27 for linda/psychosis, transferred [place] [facility] under court order during 4/17 admission. Recent admissions [facility] 08/05/18 after 1.5mo stay and 09/02/18 for linda with psychosis Suicide Attempts: none known Psychiatric Follow-up: [facility] Psychiatric medications: invega sustenna, lithium, haldol decanoate Past Medical History Medical Problems knee and back pain, neck C4-C5 injury ear graft in 1995 with tympanostomy. Head Injury: No Seizures: No Hospitalizations: Yes Surgeries: Yes Family Medical/Psychiatric HX Medical Problems noncontributory Psychiatric Disorders: No Addiction: No Suicide Attemps/Completions: No Addiction History amphetamines, methamphetamines, other (utox positive cannabis) Social History Childhood: unable to assess Abuse/Trauma:unable to assess Current Living Situation: lives in [place] Education: unable to assess Employment: on disability Social Support: brother mother Legal: none known Marital: single, infant son living with pt's mother and pt's mother has custody of son Mental Status Examination General Appearance: unkempt, disheveled, appears stated age, hospital scubs/clothing Build: overweight Demeanor: mistrustful, preoccupied, very figety, other (bizarre, impulsive, manic) Eye Contact: poor Activity: agitated, anxious Behavior: uncooperative, agitated, impulsive, hyperactive, restless Speech: rapid, pressured Mood: anxious, elevated, hypomanic (manic), other (bizarre, reactive) Affect: inappropriate, labile, anxious, disorganized Thought Process: tangential, loose, associative, flight of ideas, racing, derailment Thought Content (Delusions): grandiose, bizarre, denies SI, HI, AVH (seen talking to self in room), paranoia, delusions Thought Content (Other): preoccupied, obsessional, ideas of reference, appears paranoid Thought Content (Aggressive): none reported Perception (Hallucinations): auditory Perception (Other): none reported Cognition (Impairment of): attention/concentration, ability to abstract, unable to assess Cognition(Intelligence Est.): borderline Oriented: Awake, Alert, Oriented times three Insight: poor Judgment: Poor Psychosis: Associations, Abstract Thinking, Psychotic Perceptions Diagnoses Schizoaffective d/o Cannabis use d/o Assessment Pt is manic/psychotic, bizarre, delusional, experiencing AH, uncooperative, and emotionally labile due to medication non-compliance most likely. Will restart lithium, haldol, atarax, ativan, zyprexa. Initial Treatment Plan 1. Patient was admitted on a 9.39 status. 2. Complete history was obtained. 3. With patients permission, family will be contacted and database will be expanded. 4. Patients medication regimen will be reviewed and changed accordingly. 5. Patient will be provided with protected environment. 6. Patient will be treated with individual, group, and milieu therapies. 7. Patient will receive supportive psych-education. 8. Discharge planning will commence immediately. 9. Outpatient follow-up treatment will be strongly recommended. 10. The initial treatment plan will focus initially on: Depression. Risk for suicide. Substance abuse 11. restart lithium, haldol, atarax, ativan, zyrexa. ESTIMATED LENGTH OF STAY: 7-9 DAYS. TIME SPENT COUNSELING AND COORDINATING INITIAL CARE: 60 minutes. Vital Signs Vital Signs Date Time Temp Pulse Resp B/P (MAP) Pulse Ox O2 Delivery O2 Flow Rate FiO2 09/10/18 06:00 98.1 62 16 128/70 (89) 09/09/18 15:45 Room Air 09/09/18 14:46 98 Medications Scheduled Clonazepam (Klonopin) 0.5 Mg Tab, 0.5 MG PO TID for anxiety Diphenhydramine HCl (Diphenhydramine HCl) 50 Mg Cap, 50 MG PO TID for anxiety Haloperidol (Haloperidol) 5 Mg Tab, 5 MG PO TID for psychosis Haloperidol Decanoate (Haldol Decanoate 100) 100 Mg/Ml Inj, 100 MG IM QMONTH for psychosis Paliperidone Palmitate (Invega Sustenna) 234 Mg/1.5 Ml Inj, 234 MG IM QMONTH, (Reported) Paliperidone Palmitate (Invega Sustenna) 234 Mg/1.5 Ml Inj, 234 MG IM Q30D for psychosis [[place] Oral Solution] 300 MG/5 ML SOLN, 600 MG PO BID for mood Scheduled PRN Hydroxyzine HCl (Hydroxyzine HCl) 50 Mg Tab, 50 MG PO TIDP PRN for ANXIETY/AGITATION Trazodone HCl (Trazodone HCl) 50 Mg Tab, 50 MG PO QHSP PRN for INSOMNIA Miscellaneous Medications [Patient Comments] , (Reported) PATIENT IS POOR HISTORIAN. UNABLE AT THIS TIME TO HAVE A CONVERSATION ABOUT MEDICATION HISTORY Allergies Coded Allergies: Amoxicillin (Verified Allergy, Intermediate, Hives , 11/01/13) Sulfa Drugs (Verified Allergy, Mild, Rash, fever, vomiting, 11/01/13) Azithromycin (Verified Allergy, Unknown, 11/18/16) interacts with DUSTIN Ac DO Sep 10, 2018 09:54
[2018-09-10] MEDS: HALOPERIDOL 10 MG TAB PO SCH ×4 (10:03→21:00)
[2018-09-10] MEDS: LITHIUM CARBONATE 300MG/5ML(8MEQ/5ML)ORAL SOLUTION UDC PO SCH (21:32)
[2018-09-11 07:48] VITALS: BP 143/89
[2018-09-11] MEDS: diphenhydrAMINE 50 MG CAP PO SCH (09:00)
[2018-09-11] MEDS: HALOPERIDOL 10 MG TAB PO SCH ×4 (09:00→21:00)
[2018-09-11] MEDS: clonazePAM 0.5 MG TAB PO SCH ×3 (10:53→21:00)
[2018-09-11] MEDS: LITHIUM CARBONATE 300MG/5ML(8MEQ/5ML)ORAL SOLUTION UDC PO SCH ×2 (10:57→21:00)
--- NOTE | 2018-09-11 10:59 | MHIPNPDOC ---
[facility] [place] DATE OF SERVICE: 09/11/18 HISTORY: Patient is a 28 -year-old , female, with a history of schizoaffective d/o just d/c [facility] last week after 1 month stay for wang with psychosis 09/02/18 who brought to ED yesterday by police under9.41 order after friend called police stating pt was cutting herself and threatening suicide. Pt ED record pt attempted to break into an appt and was then spotted walking down road with numerous bags, found outside storefront huddled in the the cold having no place to go. Per ED, when pt arrived she was floridly psychotic, bizarre, talking to self in room, calling staff numerous names, having flight of ideas, rapid speech, tangential, and easily distracted. Pt did except medications in ED when offered. Pt also spit water on the floor. Pt utox positive cannabis. [place] subtherapeutic at 0.20 when it was 0.97 upon d/c last week. Pt obviously noncompliant on her medication again and abusing substances. Pt seen today and appearing psychotic with fight of ideas, hyperverbal speech, and tangential thoughts. Delusional with pseudocyesis and stating she has undiagnosed epilepsy. Pt behaviorally reactive throwing water in med room. Agreeable to im zyprexa and ativan x1 when offered. Pt is a poor historian with poor ability to participate adequately with interview most likely due to wang/psychosis and medication noncompliance. History gathered from previous records. VITAL SIGNS: See below. NEW TEST RESULTS: See below. CURRENT MEDICATIONS: See below. MENTAL STATUS EXAMINATION: General Appearance: unkempt, disheveled, appears stated age, hospital scrubs/clothing Build: overweight Demeanor: preoccupied, very fidgety, other (bizarre, impulsive, manic) Eye Contact: poor Activity: agitated, anxious Behavior: cooperative, impulsive, hyperactive, restless Speech: rapid, pressured, mumbling unintelligibly, disorganized Mood: anxious, elevated, hypomanic (manic), other (bizarre, reactive) Affect: inappropriate, labile, anxious, disorganized Thought Process: tangential, loose, associative, flight of ideas, racing, derailment Thought Content (Delusions): grandiose, bizarre, denies SI, HI, AVH (mumbling to self), paranoia, delusions (somatic, states has "undiagnosed epilepsy") Thought Content (Other): preoccupied, obsessional, ideas of reference, appears paranoid Thought Content (Aggressive): none reported Perception (Hallucinations): auditory, mumbling to self Perception (Other): none reported Cognition (Impairment of): attention/concentration, ability to abstract, unable to assess Cognition(Intelligence Est.): borderline Oriented: Awake, Alert, Oriented times three Insight: poor Judgment: Poor Psychosis: Associations, Abstract Thinking, Psychotic Perceptions DIAGNOSES: Schizoaffective d/o Cannabis use d/o ASSESSMENT: No codes thru the night. Pt seen mumbling to self unintelligibly and disorganized, spilling coffee on the floor that got on a pillow that she then tore off the cover and attempted to wash it with water from the cooling. States someone "stole my Klonopin" that she was prescribed the last time she left the hospital. Had to be redirected a few times to throw the cover away when I asked her as she attempted to walk off stating "No this is clean." She is very bizarre. Hair is messy. [place]aines manic/psychotic, bizarre, delusional, experiencing AH, uncooperative, and emotionally labile. Delusions of "undiagnosed epilepsy." She is compliant with her medication except oral haldol and encouraged to maintain compliance with all her meds. Took haldol decanoate yesterday and tolerating well. MANAGEMENT PLAN: Continue current plan. [place] level Friday. Medications: invega sustenna 234mg im qmonth given 08/30/18 haldol decanoate 100mg im given 09/10/18 haldol 10mg tid lithium 600mg bid atarax 25mg q6hr prn anxiety trazodone 50mg qhs prn insomnia ativan 2mg q6hr prn anxiety agitation ZyPREXA ZYDIS 5 mg Q6HP PRN PO anxiety/agitation TIME SPENT: 30 minutes. Vital Signs Vital Signs Date Time Temp Pulse Resp B/P (MAP) Pulse Ox O2 Delivery O2 Flow Rate FiO2 09/11/18 07:48 97.6 79 16 143/89 (107) 09/09/18 15:45 Room Air 09/09/18 14:46 98 Current Medications Current Medications Acetaminophen (Tylenol Tab) 650 mg Q6HP PRN PO HEADACHE or DISCOMFORT Last administered on 09/09/18at 21:32; Start 09/09/18 at 14:30 Al Hydrox/Mg Hydrox/Simethicone (Mylanta) 30 ml Q4HP PRN PO HEARTBURN/INDIGESTION; Start 09/09/18 at 14:30 Chlorpromazine HCl (Thorazine) 25 mg TID PO Last administered on 09/10/18at 09:26; Start 09/09/18 at 16:00; Stop 09/10/18 at 09:31; Status DC Clonazepam (KlonoPIN) 0.5 mg TID PO Last administered on 09/10/18at 21:32; Start 09/09/18 at 16:00 Diphenhydramine HCl (Benadryl) 50 mg TID PO Last administered on 09/10/18at 09:26; Start 09/09/18 at 16:00 Haloperidol (Haldol) 5 mg TID PRN PO ANXIETY/AGITATION; Start 09/09/18 at 14:30 Haloperidol (Haldol) 10 mg QID PO Last administered on 09/10/18at 16:11; Start 09/10/18 at 09:00 Haloperidol Decanoate (Haldol Decanoate) 100 mg Q28D IM ; Start 09/25/18 at 09:00 Hydroxyzine HCl (Atarax) 50 mg TIDP PRN PO ANXIETY; Start 09/09/18 at 14:30 [place] Carbonate (Eskalith Oral Solution) 600 mg BID PO Last administered on 09/10/18at 21:32; Start 09/10/18 at 21:00 [place] Carbonate ([place] Carbonate) 600 mg BID PO Last administered on 09/10/18at 08:00; Start 09/09/18 at 21:00; Stop 09/10/18 at 09:31; Status DC Magnesium Hydroxide (Milk Of Magnesia) 30 ml DAILYPRN PRN PO CONSTIPATION; Start 09/09/18 at 14:30 Olanzapine (ZyPREXA) 5 mg Q4HP PRN PO AGITATION; Start 09/09/18 at 14:30 Paliperidone Palmitate (Invega Sustenna) 234 mg Q30D@0900 IM ; Start 09/24/18 at 09:00 Trazodone HCl (Desyrel) 50 mg QHSP PRN PO INSOMNIA; Start 09/09/18 at 14:30 Allergies Coded Allergies: Amoxicillin (Verified Allergy, Intermediate, Hives , 11/01/13) Sulfa Drugs (Verified Allergy, Mild, Rash, fever, vomiting, 11/01/13) Azithromycin (Verified Allergy, Unknown, 11/18/16) interacts with DUSTIN Ac DO Sep 11, 2018 10:59 am
[2018-09-11] MEDS ORDERED: OLANZapine INTRAMUSCULAR 10 MG VIAL (S0166) IM STA ×2 (12:19→21:09)
[2018-09-11] MEDS ORDERED: LORazepam 2 MG/ML VIAL (J2060) IM STA ×2 (12:19→21:09)
[2018-09-11] MEDS ORDERED: LORazepam 2 MG/ML VIAL (J2060) As Ordered ONE (12:25)
[2018-09-11] MEDS ORDERED: HALOPERIDOL 10 MG TAB PO STA (15:47)
[2018-09-11] MEDS ORDERED: HALOPERIDOL 5 MG/ML VIAL (J1630) IM STA (15:55)
[2018-09-11] MEDS ORDERED: diphenhydrAMINE 12.5MG/5ML ELIXIR UDC PO ONE (17:00)
[2018-09-11 18:00] VITALS: BP 146/87
[2018-09-11] MEDS ORDERED: diphenhydrAMINE INJ 50MG/ML VIAL (J1200) IM STA (21:09)
[2018-09-11 22:15] VITALS: BP 138/22
[2018-09-12] MEDS: ACETAMINOPHEN TAB 650MG DOSE (2X325MG) PO PRN ×2 (04:50→19:48)
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
[2018-09-12] MEDS: LITHIUM CARBONATE 300MG/5ML(8MEQ/5ML)ORAL SOLUTION UDC PO SCH ×2 (09:57→19:48)
[2018-09-12] MEDS: clonazePAM 0.5 MG TAB PO SCH ×3 (09:57→19:43)
[2018-09-12] MEDS: HALOPERIDOL 10 MG TAB PO SCH ×4 (09:57→19:51)
[2018-09-12] MEDS ORDERED: OLANZapine INTRAMUSCULAR 10 MG VIAL (S0166) IM ONE ×2 (11:00→23:30)
[2018-09-12] MEDS ORDERED: diphenhydrAMINE INJ 50MG/ML VIAL (J1200) IM ONE ×2 (11:00→23:45)
[2018-09-12] MEDS ORDERED: LORazepam 2 MG/ML VIAL (J2060) IM ONE ×2 (11:00→23:30)
[2018-09-12] MEDS: hydrOXYzine 50 MG TAB PO PRN ×2 (12:36→15:21)
[2018-09-12 18:00] VITALS: BP 142/92
[2018-09-12] MEDS ORDERED: diphenhydrAMINE 50 MG CAP PO ONE (23:30)
[2018-09-12] MEDS ORDERED: diphenhydrAMINE INJ 50MG/ML VIAL (J1200) As Ordered ONE (23:43)
[2018-09-13] MEDS: ACETAMINOPHEN TAB 650MG DOSE (2X325MG) PO PRN ×2 (02:08→16:31)
[2018-09-13] MEDS ORDERED: chlorproMAZINE INJ 50MG/2ML AMP (J3230) IM ONE ×2 (02:30→17:30)
[2018-09-13] MEDS: clonazePAM 0.5 MG TAB PO SCH ×3 (10:03→21:00)
[2018-09-13] MEDS: HALOPERIDOL 10 MG TAB PO SCH ×4 (10:10→21:00)
[2018-09-13] MEDS: LITHIUM CARBONATE 300MG/5ML(8MEQ/5ML)ORAL SOLUTION UDC PO SCH ×2 (10:10→21:00)
[2018-09-13] MEDS ORDERED: ONDANSETRON 4 MG ORAL DISINTEGRATING TAB (Q0162 PER 1MG) PO PRN (12:00)
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
[2018-09-14] MEDS: HALOPERIDOL 10 MG TAB PO SCH ×4 (09:00→20:26)
[2018-09-14] MEDS: **PENDING PPD ENTRY XX SCH (09:00)
--- NOTE | 2018-09-14 09:30 | MHIPNPDOC ---
[facility] Progress Note Progress Note DATE OF SERVICE: 09/14/18 HISTORY: Patient is a 28 -year-old , female, with a history of schizoaffective d/o just d/c [facility] last week after 1 month stay for wang with psychosis 09/02/18 who brought to ED yesterday by police under9.41 order after friend called police stating pt was cutting herself and threatening suicide. Pt ED record pt attempted to break into an appt and was then spotted walking down road with numerous bags, found outside storefront huddled in the the cold having no place to go. Per ED, when pt arrived she was floridly psychotic, bizarre, talking to self in room, calling staff numerous names, having flight of ideas, rapid speech, tangential, and easily distracted. Pt did except medications in ED when offered. Pt also spit water on the floor. Pt utox positive cannabis. Christiana subtherapeutic at 0.20 when it was 0.97 upon d/c last week. Pt obviously noncompliant on her medication again and abusing substances. Pt seen today and appearing psychotic with fight of ideas, hyperverbal speech, and tangential thoughts. Delusional with pseudocyesis and stating she has undiagnosed epilepsy. Pt behaviorally reactive throwing water in med room. Agreeable to im zyprexa and ativan x1 when offered. Pt is a poor historian with poor ability to participate adequately with interview most likely due to wang/psychosis and medication noncompliance. History gathered from previous records. VITAL SIGNS: See below. NEW TEST RESULTS: lithium level 0.39 subtherapeutic but should improve with compliance once N/V improves. Pending u/a and urine culture. CURRENT MEDICATIONS: See below. MENTAL STATUS EXAMINATION: (unable to assess as pt sleeping so below is 09/11/18 MSE) General Appearance: unkempt, disheveled, appears stated age, hospital scrubs/clothing Build: overweight Demeanor: preoccupied, very fidgety, other (bizarre, impulsive, manic) Eye Contact: poor Activity: agitated, anxious Behavior: cooperative, impulsive, hyperactive, restless Speech: rapid, pressured, mumbling unintelligibly, disorganized Mood: anxious, elevated, hypomanic (manic), other (bizarre, reactive) Affect: inappropriate, labile, anxious, disorganized Thought Process: tangential, loose, associative, flight of ideas, racing, derailment Thought Content (Delusions): grandiose, bizarre, denies SI, HI, AVH (mumbling to self), paranoia, delusions (somatic, states has "undiagnosed epilepsy") Thought Content (Other): preoccupied, obsessional, ideas of reference, appears paranoid Thought Content (Aggressive): none reported Perception (Hallucinations): auditory, mumbling to self Perception (Other): none reported Cognition (Impairment of): attention/concentration, ability to abstract, unable to assess Cognition(Intelligence Est.): borderline Oriented: Awake, Alert, Oriented times three Insight: poor Judgment: Poor Psychosis: Associations, Abstract Thinking, Psychotic Perceptions DIAGNOSES: Schizoaffective d/o Cannabis use d/o ASSESSMENT: Pt vomited multiple times yesterday all over herself and the floor refusing to go to the bathroom. She refused many of her oral medication due to being sick. Pt current asleep with her matrass on the floor which usually means she plans to sleep for a long time. Pt most likely exhausted due to being physically ill yesterday. She is currently on liquid diet until N/V improve and is receiving zofran prn to improve symptoms. Will put in order for transfer to [facility] as this is the second time pt has had rapid readmission with severe wang and psychosis secondary to med noncompliance despite deaconate meds given prior to last d/c. Had no codes last night and is willingly accept im medication. Pt placed on 1:1 sitter still. Unable to assess fully. MANAGEMENT PLAN: Continue current plan. Medications: zofran q4hr prn N/V haldol decanoate 100mg im given 09/10/18 haldol 10mg tid lithium 600mg bid atarax 25mg q6hr prn anxiety trazodone 50mg qhs prn insomnia ativan 2mg q6hr prn anxiety agitation zyprexa zydis 5mg qam and 10mg qhs ZyPREXA ZYDIS 5 mg Q6HP PRN PO anxiety/agitation TIME SPENT: 30 minutes. Vital Signs Vital Signs Date Time Temp Pulse Resp B/P (MAP) Pulse Ox O2 Delivery O2 Flow Rate FiO2 09/13/18 18:00 99.8 09/12/18 18:00 86 20 142/92 (109) 09/09/18 15:45 Room Air 09/09/18 14:46 98 Laboratory Data 24H Labs Laboratory Tests 2 09/13/18 12:05: Urine Color STRAW, Urine Appearance CLEAR, Urine pH 7.0, Urine Specific [place] 1.011, Urine Protein NEGATIVE, Urine Glucose (UA) NEGATIVE, Urine Ketones NEGATIVE, Urine Blood 2+H, Urine Nitrite NEGATIVE, Urine Bilirubin NEGATIVE, Urine Urobilinogen 0.2, Urine Leukocyte Esterase TRACEH, Urine WBC (Auto) 4H, Urine RBC (Auto) 0, Urine Hyaline Casts (Auto) 0, Urine Bacteria (Auto) NEGATIVE, Urine Squamous Epithelial Cells 1, Urine Sperm (Auto) 09/13/18 16:54: Christiana Level 0.39L Current Medications Current Medications Acetaminophen (Tylenol Tab) 650 mg Q6HP PRN PO HEADACHE or DISCOMFORT Last administered on 09/13/18 16:31; Start 09/09/18 at 14:30 Al Hydrox/Mg Hydrox/Simethicone (Mylanta) 30 ml Q4HP PRN PO HEARTBURN/I NDIGESTION; Start 09/09/18 at 14:30 Chlorpromazine HCl (Thorazine) 25 mg TID PO Last administered on 09/10/18 09:26; Start 09/09/18 at 16:00; Stop 09/10/18 at 09:31; Status DC Clonazepam (KlonoPIN) 0.5 mg TID PO Last administered on 09/13/18 16:25; Start 09/09/18 at 16:00 Diphenhydramine HCl (Benadryl) 50 mg TID PO Last administered on 09/10/18 09:26; Start 09/09/18 at 16:00; Stop 09/11/18 at 15:28; Status DC Diphenhydramine HCl (Benadryl) 100 mg STAT STAT IM Last administered on 09/11/18 21:54; Start 09/11/18 at 21:09; Stop 09/11/18 at 21:11; Status DC Haloperidol (Haldol) 5 mg TID PRN PO ANXIETY/AGITATION Last administered on 09/12/18 19:03; Start 09/09/18 at 14:30 Haloperidol (Haldol) 10 mg QID PO Last administered on 09/12/18 17:13; Start 09/10/18 at 09:00 Haloperidol (Haldol) 10 mg STAT STAT IM Last administered on 09/11/18at 16:08; Start 09/11/18 at 15:55; Stop 09/11/18 at 15:57; Status DC Haloperidol (Haldol) 10 mg STAT STAT PO ; Start 09/11/18 at 15:47; Stop 09/11/18 at 15:48; Status DC Haloperidol Decanoate (Haldol Decanoate) 100 mg Q28D IM ; Start 09/25/18 at 09:00 Hydroxyzine HCl (Atarax) 50 mg TIDP PRN PO ANXIETY Last administered on 09/12/18 15:21; Start 09/09/18 at 14:30 Christiana Carbonate (Eskalith Oral Solution) 600 mg BID PO Last administered on 09/13/18 10:10; Start 09/10/18 at 21:00 Christiana Carbonate (Christiana Carbonate) 600 mg BID PO Last administered on at 08:00; Start 09/09/18 at 21:00; Stop 09/10/18 at 09:31; Status DC Lorazepam (Ativan) 2 mg STAT STAT IM Last administered on 09/11/18 12:32; Start 09/11/18 at 12:19; Stop 09/11/18 at 12:27; Status DC Lorazepam (Ativan) 2 mg STAT STAT IM Last administered on 09/11/18at 21:53; Start 09/11/18 at 21:09; Stop 09/11/18 at 21:11; Status DC Magnesium Hydroxide (Milk Of Magnesia) 30 ml DAILYPRN PRN PO CONSTIPATION; Start 09/09/18 at 14:30 Olanzapine (ZyPREXA) 5 mg Q4HP PRN PO AGITATION; Start 09/09/18 at 14:30 Olanzapine (Zyprexa Intramuscular) 10 mg STAT STAT IM Last administered on 09/11/18at 12:32; Start 09/11/18 at 12:19; Stop 09/11/18 at 12:21; Status DC Olanzapine (Zyprexa Intramuscular) 10 mg STAT STAT IM Last administered on 09/11/18at 21:55; Start 09/11/18 at 21:09; Stop 09/11/18 at 21:11; Status DC Ondansetron HCl (Zofran Odt) 4 mg Q6HP PRN PO NAUSEA OR VOMITING; Start 09/13/18 at 12:00 Paliperidone Palmitate (Invega Sustenna) 234 mg Q30D@0900 IM ; Start 09/24/18 at 09:00; Status Cancel Trazodone HCl (Desyrel) 50 mg QHSP PRN PO INSOMNIA; Start 09/09/18 at 14:30 Allergies Coded Allergies: Amoxicillin (Verified Allergy, Intermediate, Hives , 11/01/13) Sulfa Drugs (Verified Allergy, Mild, Rash, fever, vomiting, 11/01/13) Azithromycin (Verified Allergy, Unknown, 11/18/16) interacts with DUSTIN Ac DO Sep 14, 2018 9:30 am
[2018-09-14] MEDS ORDERED: TUBERCULIN PPD 5 UNITS/0.1 ML ID ONE (10:00)
[2018-09-14] MEDS: clonazePAM 0.5 MG TAB PO SCH ×3 (10:10→20:00)
[2018-09-14] MEDS: LITHIUM CARBONATE 300MG/5ML(8MEQ/5ML)ORAL SOLUTION UDC PO SCH ×2 (10:16→20:00)
[2018-09-14] MEDS ORDERED: chlorproMAZINE INJ 50MG/2ML AMP (J3230) IM ONE ×2 (15:30→20:00)
[2018-09-14] MEDS ORDERED: diphenhydrAMINE INJ 50MG/ML VIAL (J1200) IM ONE ×3 (15:30→22:00)
[2018-09-14 18:00] VITALS: BP 140/90
[2018-09-14] MEDS: hydrOXYzine 50 MG TAB PO PRN (20:46)
[2018-09-14] MEDS: traZODone 50 MG TAB PO PRN (20:48)
[2018-09-14] MEDS ORDERED: OLANZapine INTRAMUSCULAR 10 MG VIAL (S0166) IM ONE (22:00)
[2018-09-15] VITALS (12 sets, daily range): BP systolic 112–162; BP diastolic 70–99
[2018-09-15] MEDS ORDERED: HALOPERIDOL 5 MG/ML VIAL (J1630) IM ONE (01:45)
[2018-09-15] MEDS ORDERED: LORazepam 2 MG TAB PO STA (02:25)
[2018-09-15] MEDS: hydrOXYzine 50 MG TAB PO PRN ×2 (06:54→21:34)
[2018-09-15] MEDS: clonazePAM 0.5 MG TAB PO SCH ×3 (08:08→21:34)
[2018-09-15] MEDS: HALOPERIDOL 10 MG TAB PO SCH ×4 (08:11→21:34)
[2018-09-15] MEDS: LITHIUM CARBONATE 300MG/5ML(8MEQ/5ML)ORAL SOLUTION UDC PO SCH ×2 (08:11→19:40)
[2018-09-15] MEDS: **PENDING PPD ENTRY XX SCH (08:12)
--- NOTE | 2018-09-15 09:48 | MHIPNPDOC ---
[facility] Progress Note Progress Note DATE OF SERVICE: 09/15/18 HISTORY: Patient is a 28 -year-old , female, with a history of schizoaffective d/o just d/c [facility] last week after 1 month stay for wang with psychosis 09/02/18 who brought to ED yesterday by police under9.41 order after friend called police stating pt was cutting herself and threatening suicide. Pt ED record pt attempted to break into an appt and was then spotted walking down road with numerous bags, found outside storefront huddled in the the cold having no place to go. Per ED, when pt arrived she was floridly psychotic, bizarre, talking to self in room, calling staff numerous names, having flight of ideas, rapid speech, tangential, and easily distracted. Pt did except medications in ED when offered. Pt also spit water on the floor. Pt utox positive cannabis. Lesage subtherapeutic at 0.20 when it was 0.97 upon d/c last week. Pt obviously noncompliant on her medication again and abusing substances. Pt seen today and appearing psychotic with fight of ideas, hyperverbal speech, and tangential thoughts. Delusional with pseudocyesis and stating she has undiagnosed epilepsy. Pt behaviorally reactive throwing water in med room. Agreeable to im zyprexa and ativan x1 when offered. Pt is a poor historian with poor ability to participate adequately with interview most likely due to wang/psychosis and medication noncompliance. History gathered from previous records. VITAL SIGNS: See below. NEW TEST RESULTS: lithium level 0.39 subtherapeutic but should improve with compliance once N/V improves. Pending u/a and urine culture. CURRENT MEDICATIONS: See below. MENTAL STATUS EXAMINATION: (unable to assess, MSE from last week) General Appearance: unkempt, disheveled, appears stated age, hospital scrubs/clothing Build: overweight Demeanor: preoccupied, very fidgety, other (bizarre, impulsive, manic) Eye Contact: poor Activity: agitated, anxious Behavior: cooperative, impulsive, hyperactive, restless Speech: rapid, pressured, mumbling unintelligibly, disorganized Mood: anxious, elevated, hypomanic (manic), other (bizarre, reactive) Affect: inappropriate, labile, anxious, disorganized Thought Process: tangential, loose, associative, flight of ideas, racing, derailment Thought Content (Delusions): grandiose, bizarre, denies SI, HI, AVH (mumbling to self), paranoia, delusions (somatic, states has "undiagnosed epilepsy") Thought Content (Other): preoccupied, obsessional, ideas of reference, appears paranoid Thought Content (Aggressive): none reported Perception (Hallucinations): auditory, mumbling to self Perception (Other): none reported Cognition (Impairment of): attention/concentration, ability to abstract, unable to assess Cognition(Intelligence Est.): borderline Oriented: Awake, Alert, Oriented times three Insight: poor Judgment: Poor Psychosis: Associations, Abstract Thinking, Psychotic Perceptions DIAGNOSES: Schizoaffective d/o Cannabis use d/o ASSESSMENT: Pt slept most of the day yesterday. Did get up in afternoon and was manic, psychotic, agitated. Took thorazine 50mg im and benadryl 100mg im willingly and calmed down, went back to bed. Pt currently sleeping again today, per 1:1 sitter went to bed 30min ago. Pt left sleeping as has had N/V recently and been manic and psychotic so most likely needs sleep. Per 1:1 sitter pt also not sleeping well at night and was given meds at 2:30am this morning to calm her psychosis, wang, and agitation. Pt with no N/V yesterday or this morning. Will order cmp and cbc to ensure pt not dehydrated. Put in order for transfer to [facility] [place]ster[place] as this is the second time pt has had rapid readmission with severe wang and psychosis secondary to med noncompliance despite deaconate meds given prior to last d/c. Had no codes last night and is willingly accept im medication. Pt placed on 1:1 sitter still. Unable to assess fully. MANAGEMENT PLAN: Continue current plan. Medications: zofran q4hr prn N/V haldol decanoate 100mg im given 09/10/18 haldol 10mg tid lithium 600mg bid atarax 25mg q6hr prn anxiety trazodone 50mg qhs prn insomnia ativan 2mg q6hr prn anxiety agitation zyprexa zydis 5mg qam and 10mg qhs ZyPREXA ZYDIS 5 mg Q6HP PRN PO anxiety/agitation TIME SPENT: 30 minutes. Vital Signs Vital Signs Date Time Temp Pulse Resp B/P (MAP) Pulse Ox O2 Delivery O2 Flow Rate FiO2 09/14/18 18:00 98.9 108 16 140/90 (107) 09/09/18 15:45 Room Air 09/09/18 14:46 98 Current Medications Current Medications Acetaminophen (Tylenol Tab) 650 mg Q6HP PRN PO HEADACHE or DISCOMFORT Last administered on 09/13/18 16:31; Start 09/09/18 at 14:30 Al Hydrox/Mg Hydrox/Simethicone (Mylanta) 30 ml Q4HP PRN PO HEARTBURN/INDIGESTION; Start 09/09/18 at 14:30 Chlorpromazine HCl (Thorazine) 25 mg TID PO Last administered on 09/10/18 09:26; Start 09/09/18 at 16:00; Stop 09/10/18 at 09:31; Status DC Clonazepam (KlonoPIN) 0.5 mg TID PO Last administered on 09/15/18 08:08; Start 09/09/18 at 16:00 Diphenhydramine HCl (Benadryl) 50 mg TID PO Last administered on 09/10/18 09: 26; Start 09/09/18 at 16:00; Stop 09/11/18 at 15:28; Status DC Diphenhydramine HCl (Benadryl) 100 mg STAT STAT IM Last administered on 09/11/18 21:54; Start 09/11/18 at 21:09; Stop 09/11/18 at 21:11; Status DC Haloperidol (Haldol) 5 mg TID PRN PO ANXIETY/AGITATION Last administered on 09/12/18 19:03; Start 09/09/18 at 14:30 Haloperidol (Haldol) 10 mg QID PO Last administered on 09/12/18 17:13; Start 09/10/18 at 09:00 Haloperidol (Haldol) 10 mg STAT STAT IM Last administered on 09/11/18 16:08; Start 09/11/18 at 15:55; Stop 09/11/18 at 15:57; Status DC Haloperidol (Haldol) 10 mg STAT STAT PO ; Start 09/11/18 at 15:47; Stop 09/11/18 at 15:48; Status DC Haloperidol Decanoate (Haldol Decanoate) 100 mg Q28D IM ; Start 09/25/18 at 09:00 Hydroxyzine HCl (Atarax) 50 mg TIDP PRN PO ANXIETY Last administered on 09/15/18at 06:54; Start 09/09/18 at 14:30 Lesage Carbonate (Eskalith Oral Solution) 600 mg BID PO Last administered on 09/15/18at 08:11; Start 09/10/18 at 21:00 Lesage Carbonate (Lesage Carbonate) 600 mg BID PO Last administered on 09/10/18at 08:00; Start 09/09/18 at 21:00; Stop 09/10/18 at 09:31; Status DC Lorazepam (Ativan) 2 mg STAT STAT IM Last administered on 09/11/18at 12:32; Start 09/11/18 at 12:19; Stop 09/11/18 at 12:27; Status DC Lorazepam (Ativan) 2 mg STAT STAT IM Last administered on 09/11/18at 21:53; Start 09/11/18 at 21:09; Stop 09/11/18 at 21:11; Status DC Lorazepam (Ativan) 2 mg STAT STAT PO Last administered on 09/15/18at 02:25; Start 09/15/18 at 02:25; Stop 09/15/18 at 02:26; Status DC Magnesium Hydroxide (Milk Of Magnesia) 30 ml DAILYPRN PRN PO CONSTIPATION; Start 09/09/18 at 14:30 Non-Formulary Medication ( See Comment Field Below ) SEE COMMENTS SECTION 1T@10 XX ; Start 09/16/18 at 10:00; Stop 09/16/18 at 10:00; Status DC Non-Formulary Medication ( See Comment Field Below ) SEE LABEL COMMENTS DAILY XX ; Start 09/14/18 at 09:00 Olanzapine (ZyPREXA) 5 mg Q4HP PRN PO AGITATION; Start 09/09/18 at 14:30 Olanzapine (Zyprexa Intramuscular) 10 mg STAT STAT IM Last administered on 09/11/18at 12:32; Start 09/11/18 at 12:19; Stop 09/11/18 at 12:21; Status DC Olanzapine (Zyprexa Intramuscular) 10 mg STAT STAT IM Last administered on 09/11/18at 21:55; Start 09/11/18 at 21:09; Stop 09/11/18 at 21:11; Status DC Ondansetron HCl (Zofran Odt) 4 mg Q6HP PRN PO NAUSEA OR VOMITING; Start 09/13/18 at 12:00 Paliperidone Palmitate (Invega Sustenna) 234 mg Q30D@0900 IM ; Start 09/24/18 at 09:00; Status Cancel Trazodone HCl (Desyrel) 50 mg QHSP PRN PO INSOMNIA Last administered on 09/14/18at 20:48; Start 09/09/18 at 14:30 Allergies Coded Allergies: Amoxicillin (Verified Allergy, Intermediate, Hives , 11/01/13) Sulfa Drugs (Verified Allergy, Mild, Rash, fever, vomiting, 11/01/13) Azithromycin (Verified Allergy, Unknown, 11/18/16) interacts with DUSTIN Ac DO Sep 15, 2018 09:48
[2018-09-15 10:56] LABS: BASO % 0.2 % (0.0-1.0); EOS # 0.2 10^3/uL (0.0-0.50); EOS % 2.9 % (0.0-3.0); HEMATOCRIT 38.8 % (36.0-47.0); HEMOGLOBIN 12.4 g/dl (12.0-15.5); LYMPH % 23.5 % (24.0-44.0); MEAN CORPUSCULAR HEMOGLOBIN 26.6 pg (27.0-33.0); MEAN CORPUSCULAR VOLUME 83.1 fl (80.0-96.0); MONO # 0.7 10^3/uL (0.0-0.8); MONO % 7.8 % (0.0-5.0); NEUTROPHILS # 5.4 10^3/uL (1.8-7.7); NEUTROPHILS % 65.2 % (36.0-66.0); PLATELET COUNT, AUTOMATED 267 10^3/uL (150-450); RED BLOOD COUNT 4.67 10^6/uL (4.00-5.40); WHITE BLOOD COUNT 8.3 10^3/uL (4.0-10.0)
[2018-09-15 11:31] LABS: ALBUMIN 3.5 GM/DL (3.2-5.2); ALT/SGPT 30 U/L (12-78); BILIRUBIN,TOTAL 0.2 MG/DL (0.2-1.0); BLOOD UREA NITROGEN 11 MG/DL (7-18); CALCIUM LEVEL 8.7 MG/DL (8.5-10.1); CARBON DIOXIDE LEVEL 27 MEQ/L (21-32); CHLORIDE LEVEL 107 MEQ/L (98-107); CREATININE FOR GFR 0.68 MG/DL (0.55-1.30); GLOMERULAR FILTRATION RATE > 60.0 (>60); GLUCOSE, FASTING 87 MG/DL (70-100); POTASSIUM SERUM 4.4 MEQ/L (3.5-5.1); SODIUM LEVEL 140 MEQ/L (136-145); TOTAL PROTEIN 6.4 GM/DL (6.4-8.2)
[2018-09-15] MEDS ORDERED: cefTRIAXone SOD 2 GM VIAL (J0696) IM ONE (13:00)
[2018-09-15] MEDS ORDERED: LIDOCAINE 1% SDV 5 ML VIAL DILUENT ONE (13:00)
[2018-09-15] MEDS: ACETAMINOPHEN TAB 650MG DOSE (2X325MG) PO PRN (15:56)
--- NOTE | 2018-09-15 18:45 | NUR ---
Seen for confirmatory consult. See Certificate of Examining Physician.
[2018-09-15] MEDS ORDERED: LORazepam 2 MG/ML VIAL (J2060) IM STA (20:23)
[2018-09-15] MEDS ORDERED: chlorproMAZINE INJ 50MG/2ML AMP (J3230) IM STA (20:23)
[2018-09-15] MEDS ORDERED: chlorproMAZINE INJ 50MG/2ML AMP (J3230) IM ONE (21:00)
[2018-09-15] MEDS: traZODone 50 MG TAB PO PRN (21:34)
[2018-09-16] VITALS (10 sets, daily range): BP systolic 120–161; BP diastolic 73–99
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
[2018-09-16] MEDS: LITHIUM CARBONATE 300MG/5ML(8MEQ/5ML)ORAL SOLUTION UDC PO SCH ×2 (09:00→21:20)
[2018-09-16] MEDS: clonazePAM 0.5 MG TAB PO SCH (09:00)
[2018-09-16] MEDS: **PENDING PPD ENTRY XX SCH (09:00)
[2018-09-16] MEDS: HALOPERIDOL 10 MG TAB PO SCH (09:00)
[2018-09-16] MEDS ORDERED: chlorproMAZINE 25 MG TAB (Q0161) PO PRN (09:15)
--- NOTE | 2018-09-16 09:17 | MHIPNPDOC ---
[facility] Progress Note Progress Note DATE OF SERVICE: 09/16/18 HISTORY:Patient is a 28 -year-old , female, with a history of schizoaffective d/o just d/c [facility] last week after 1 month stay for wang with psychosis 09/02/18 who brought to ED yesterday by police under9.41 order after friend called police stating pt was cutting herself and threatening suicide. Pt ED record pt attempted to break into an appt and was then spotted walking down road with numerous bags, found outside storefront huddled in the the cold having no place to go. Per ED, when pt arrived she was floridly psychotic, bizarre, talking to self in room, calling staff numerous names, having flight of ideas, rapid speech, tangential, and easily distracted. Pt did except medications in ED when offered. Pt also spit water on the floor. Pt utox positive cannabis. [place] subtherapeutic at 0.20 when it was 0.97 upon d/c last week. Pt obviously noncompliant on her medication again and abusing substances. Pt seen today and appearing psychotic with fight of ideas, hyperverbal speech, and tangential thoughts. Delusional with pseudocyesis and stating she has undiagnosed epilepsy. Pt behaviorally reactive throwing water in med room. Agreeable to im zyprexa and ativan x1 when offered. Pt is a poor historian with poor ability to participate adequately with interview most likely due to wang/psychosis and medication noncompliance. History gathered from previous records. VITAL SIGNS: See below. NEW TEST RESULTS: lithium level 0.39 subtherapeutic but should improve with c ompliance once N/V improves. Pending urine culture. CMP and CBC wnl. Pending HIV screening. CURRENT MEDICATIONS: See below. MENTAL STATUS EXAMINATION: General Appearance: unkempt, disheveled, appears stated age, hospital scrubs/clothing Build: overweight Demeanor: preoccupied, very fidgety, other (bizarre, impulsive, manic) Eye Contact: poor Activity: agitated, anxious Behavior: cooperative, impulsive, hyperactive, restless Speech: rapid, pressured, mumbling unintelligibly, disorganized Mood: anxious, elevated, hypomanic (manic), other (bizarre, reactive) Affect: inappropriate, labile, anxious, disorganized Thought Process: tangential, loose, associative, flight of ideas, racing, derailment Thought Content (Delusions): grandiose, bizarre, denies SI, HI, AVH (mumbling to self), paranoia, delusions (somatic, states has "undiagnosed epilepsy") Thought Content (Other): preoccupied, obsessional, ideas of reference, appears paranoid Thought Content (Aggressive): none reported Perception (Hallucinations): auditory, mumbling to self Perception (Other): none reported Cognition (Impairment of): attention/concentration, ability to abstract, unable to assess Cognition(Intelligence Est.): borderline Oriented: Awake, Alert, Oriented times three Insight: poor Judgment: Poor Psychosis: Associations, Abstract Thinking, Psychotic Perceptions DIAGNOSES: Schizoaffective d/o Cannabis use d/o ASSESSMENT: Per Dr. Samson: "I was called by staff, RIANA Brandon, she informed me that the patient had been agitated, and was willing to take injectable medication, and 50 mg of Thorazine was ordered. I was called later, informed that she had been given the injection by the nurse, Rakan, but that as he was pulling the needle out, she apparently grabbed the injection from him and stuck him with it, and was agitated even further. In view of this, and the agitation, she was placed on four point restraints. I came in to see her soon afterwards, she had just been placed in restraints, she was talking rapidly, trying to get out of the restraints, and tangential in thought, and has been given further Thorazine, 50 mg, as well as Ativan 1 mg intramuscular, to help decrease the agitation. She will be monitored according to protocol, and the patient will be monitored, and restraints will be removed as soon as possible, per protocol, and clinical need." Pt asleep currently after restrained chemical and mechanical due to stated event above. Got consent from pt this am for HIV testing after sticking needle in nurse Rakan after receiving im thorazine willingly. Pt remains manic, psychotic, agitated, and impulsive. Only partially compliant on medication and will encourage full compliance. Pt with no N/V last 2 days. Received Rocephin 2gm IM for UTI. Will order cmp and cbc to ensure pt not dehydrated. Put in order for transfer to [facility] Friday as this is the second time pt has had rapid readmission with severe wang and psychosis secondary to med noncompliance despite deaconate meds given prior to last d/c. Had no codes last night and is willingly accept im medication. Pt placed on 1:1 sitter still. Will have pts hands held each time administered medicine IM for now on. MANAGEMENT PLAN: Pending HIV screening. D/c oral haldol and start thorzaine 50mg qid and q6hr prn anxiety/agitation as haldol appears ineffective currently. Medications: zofran q4hr prn N/V haldol decanoate 100mg im given 09/10/18 thorazine 50mg qid lithium 600mg bid atarax 25mg q6hr prn anxiety trazodone 50mg qhs prn insomnia ativan 2mg q6hr prn anxiety agitation zyprexa zydis 5mg qam and 10mg qhs ZyPREXA ZYDIS 5 mg Q6HP PRN PO anxiety/agitation TIME SPENT: 30 minutes. Vital Signs Vital Signs Date Time Temp Pulse Resp B/P (MAP) Pulse Ox O2 Delivery O2 Flow Rate FiO2 09/16/18 06:19 97.8 97 20 136/73 (94) Laboratory Data 24H Labs Laboratory Tests 2 09/15/18 10:27: Immature Granulocyte % (Auto) 0.4, White Blood Count 8.3, Red Blood Count 4.67, Hemoglobin 12.4, Hematocrit 38.8, Mean Corpuscular Volume 83.1, Mean Corpuscular Hemoglobin 26.6L, Mean Corpuscular Hemoglobin Concent 32.0, Red Cell Distribution Width 14.2, Platelet Count 267, Neutrophils (%) (Auto) 65.2, Lymphocytes (%) (Auto) 23.5L, Monocytes (%) (Auto) 7.8H, Eosinophils (%) (Auto) 2.9, Basophils (%) (Auto) 0.2, Neutrophils # (Auto) 5.4, Lymphocytes # (Auto) 2.0, Monocytes # (Auto) 0.7, Eosinophils # (Auto) 0.2, Basophils # (Auto) 0.0, Nucleated Red Blood Cells % (auto) 0.0, Anion Gap 6L, Glomerular Filtration Rate > 60.0, Blood Urea Nitrogen 11, Creatinine 0.68, Sodium Level 140, Potassium Level 4.4, Chloride Level 107, Carbon Dioxide Level 27, Calcium Level 8.7, Aspartate Amino Transf (AST/SGOT) 39H, Alanine Aminotransferase (ALT/SGPT) 30, Alkaline Phosphatase 80, Total Bilirubin 0.2, Total Protein 6.4, Albumin 3.5, Albumin/Globulin Ratio 1.21 CBC/BMP Laboratory Tests 09/15/18 10:27 Red Blood Count 4.67, Mean Corpuscular Volume 83.1, Mean Corpuscular Hemoglobin 26.6 L, Mean Corpuscular Hemoglobin Concent 32.0, Red Cell Distribution Width 14.2, Neutrophils (%) (Auto) 65.2, Lymphocytes (%) (Auto) 23.5 L, Monocytes (%) (Auto) 7.8 H, Eosinophils (%) (Auto) 2.9, Basophils (%) (Auto) 0.2, Neutrophils # (Auto) 5.4, Lymphocytes # (Auto) 2.0, Monocytes # (Auto) 0.7, Eosinophils # (Auto) 0.2, Basophils # (Auto) 0.0, Calcium Level 8.7, Aspartate Amino Transf (AST/SGOT) 39 H, Alanine Aminotransferase (ALT/SGPT) 30, Alkaline Phosphatase 80, Total Bilirubin 0.2, Total Protein 6.4, Albumin 3.5 Current Medications Current Medications Acetaminophen (Tylenol Tab) 650 mg Q6HP PRN PO HEADACHE or DISCOMFORT Last administered on 09/15/18at 15:56; Start 09/09/18 at 14:30 Al Hydrox/Mg Hydrox/Simethicone (Mylanta) 30 ml Q4HP PRN PO HEARTBURN/INDIGESTION; Start 09/09/18 at 14:30 Chlorpromazine HCl (Thorazine) 25 mg TID PO Last administered on 09/10/18at 09:26; Start 09/09/18 at 16:00; Stop 09/10/18 at 09:31; Status DC Chlorpromazine HCl (Thorazine) 50 mg STAT STAT IM Last administered on 09/15/18at 20:34; Start 09/15/18 at 20:23; Stop 09/15/18 at 20:27; Status DC Clonazepam (KlonoPIN) 0.5 mg TID PO Last administered on 09/15/18at 21:34; Start 09/09/18 at 16:00 Diphenhydramine HCl (Benadryl) 50 mg TID PO Last administered on 09/10/18at 09:26; Start 09/09/18 at 16:00; Stop 09/11/18 at 15:28; Status DC Diphenhydramine HCl (Benadryl) 100 mg STAT STAT IM Last administered on 09/11/18 at 21:54; Start 09/11/18 at 21:09; Stop 09/11/18 at 21:11; Status DC Haloperidol (Haldol) 5 mg TID PRN PO ANXIETY/AGITATION Last administered on 09/12/18 19:03; Start 09/09/18 at 14:30 Haloperidol (Haldol) 10 mg QID PO Last administered on 09/15/18 21:34; Start 09/10/18 at 09:00 Haloperidol (Haldol) 10 mg STAT STAT IM Last administered on 09/11/18at 16:08; Start 09/11/18 at 15:55; Stop 09/11/18 at 15:57; Status DC Haloperidol (Haldol) 10 mg STAT STAT PO ; Start 09/11/18 at 15:47; Stop 09/11/18 at 15:48; Status DC Haloperidol Decanoate (Haldol Decanoate) 100 mg Q28D IM ; Start 09/25/18 at 09:00 Hydroxyzine HCl (Atarax) 50 mg TIDP PRN PO ANXIETY Last administered on 09/15/18 21:34; Start 09/09/18 at 14:30 [place] Carbonate (Eskalith Oral Solution) 600 mg BID PO Last administered on 09/15/18at 19:40; Start 09/10/18 at 21:00 [place] Carbonate ([place] Carbonate) 600 mg BID PO Last administered on 09/10/18at 08:00; Start 09/09/18 at 21:00; Stop 09/10/18 at 09:31; Status DC Lorazepam (Ativan) 1 mg STAT STAT IM Last administered on 09/15/18at 20:34; Start 09/15/18 at 20:23; Stop 09/15/18 at 20:27; Status DC Lorazepam (Ativan) 2 mg STAT STAT IM Last administered on 09/11/18at 12:32; Start 09/11/18 at 12:19; Stop 09/11/18 at 12:27; Status DC Lorazepam (Ativan) 2 mg STAT STAT IM Last administered on 09/11/18at 21:53; Start 09/11/18 at 21:09; Stop 09/11/18 at 21:11; Status DC Lorazepam (Ativan) 2 mg STAT STAT PO Last administered on 09/15/18at 02:25; Start 09/15/18 at 02:25; Stop 09/15/18 at 02:26; Status DC Magnesium Hydroxide (Milk Of Magnesia) 30 ml DAILYPRN PRN PO CONSTIPATION; Sta rt 09/09/18 at 14:30 Miscellaneous (Unresolved Clarification Entry) SEE LABEL COMMENTS DAILY XX ; St art 09/15/18 at 09:00; Stop 09/16/18 at 06:38; Status DC Miscellaneous (Unresolved Clarification Entry) SEE LABEL COMMENTS DAILY XX ; Start 09/16/18 at 09:00 Non-Formulary Medication ( See Comment Field Below ) SEE COMMENTS SECTION 1T@10 XX ; Start 09/16/18 at 10:00; Stop 09/16/18 at 10:00; Status DC Non-Formulary Medication ( See Comment Field Below ) SEE LABEL COMMENTS DAILY XX ; Start 09/14/18 at 09:00 Olanzapine (ZyPREXA) 5 mg Q4HP PRN PO AGITATION; Start 09/09/18 at 14:30 Olanzapine (Zyprexa Intramuscular) 10 mg STAT STAT IM Last administered on 09/11/18at 12:32; Start 09/11/18 at 12:19; Stop 09/11/18 at 12:21; Status DC Olanzapine (Zyprexa Intramuscular) 10 mg STAT STAT IM Last administered on 09/11/18at 21:55; Start 09/11/18 at 21:09; Stop 09/11/18 at 21:11; Status DC Ondansetron HCl (Zofran Odt) 4 mg Q6HP PRN PO NAUSEA OR VOMITING; Start 09/13/18 at 12:00 Paliperidone Palmitate (Invega Sustenna) 234 mg Q30D@0900 IM ; Start 09/24/18 at 09:00; Status Cancel Trazodone HCl (Desyrel) 50 mg QHSP PRN PO INSOMNIA Last administered on 09/15/18at 21:34; Start 09/09/18 at 14:30 Allergies Coded Allergies: Amoxicillin (Verified Allergy, Intermediate, Hives , 11/01/13) Sulfa Drugs (Verified Allergy, Mild, Rash, fever, vomiting, 11/01/13) Azithromycin (Verified Allergy, Unknown, 11/18/16) interacts with DUSTIN Ac DO Sep 16, 2018 9:17 am
[2018-09-16] MEDS ORDERED: PPD DOCUMENTATION ENTRY MISC XX SCH (10:00)
[2018-09-16 11:14] LABS: HEP C VIRUS AB INDEX SOURCE PT 0.1 INDEX (0.0-0.8); HEPATITIS B SURFACE ANTIGEN NEGATIVE (NEGATIVE)
[2018-09-16] MEDS: chlorproMAZINE 25 MG TAB (Q0161) PO SCH ×3 (13:00→21:28)
[2018-09-16] MEDS ORDERED: cefTRIAXone SOD 2 GM in D5W MINI-BAG PLUS 50 ML IV ONE (14:00)
[2018-09-16] MEDS ORDERED: cefTRIAXone SOD 2 GM VIAL (J0696) IM ONE (14:00)
[2018-09-16] MEDS ORDERED: LIDOCAINE 1% SDV 5 ML VIAL IM ONE (14:00)
[2018-09-16] MEDS ORDERED: chlorproMAZINE INJ 50MG/2ML AMP (J3230) IM STA ×2 (18:21→18:58)
[2018-09-16] MEDS ORDERED: diphenhydrAMINE INJ 50MG/ML VIAL (J1200) IM ONE ×2 (18:30→20:45)
--- NOTE | 2018-09-16 19:02 | MHIR ---
General Date: Sep 16, 2018 Time Initiated: 19:00 Restraint Documentation Order/Evaluation FACE TO FACE: yes. PHYSICIAN ASSESSMENT: throwing things at staff and attempting to kick staff, set 2 fire alarms off, and threw herself on the floor REASON FOR RESTRAINT: Patient poses imminent danger of harming self or others: yes as described above DE-ESCALATION INTERVENTIONS ATTEMPTED BEFORE USE OF RESTRAINTS: redirection, staff support, prn medication [MECHANICAL AND/OR CHEMICAL] RESTRAINTS USED: chemical and mechanical. LENGTH OF TIME ORDERED IN RESTRAINTS: When the patient is no longer a threat to themselves or others WHEN TO DISCONTINUE RESTRAINTS: When the patient is no longer a threat to themselves or others. Post evaluation of restraint due in 24 hours. DUSTIN DINH DO Sep 16, 2018 7:02 pm
[2018-09-17] MEDS: traZODone 50 MG TAB PO PRN ×2 (00:15→22:43)
[2018-09-17] MEDS: ACETAMINOPHEN TAB 650MG DOSE (2X325MG) PO PRN (03:47)
[2018-09-17] MEDS ORDERED: LORazepam 2 MG/ML VIAL (J2060) IM ONE (04:30)
[2018-09-17] MEDS ORDERED: diphenhydrAMINE INJ 50MG/ML VIAL (J1200) IM ONE (04:30)
[2018-09-17] MEDS ORDERED: chlorproMAZINE INJ 50MG/2ML AMP (J3230) IM ONE (04:30)
[2018-09-17 06:23] VITALS: BP 149/92
[2018-09-17] MEDS: **PENDING PPD ENTRY XX SCH (09:00)
[2018-09-17] MEDS: LITHIUM CARBONATE 300MG/5ML(8MEQ/5ML)ORAL SOLUTION UDC PO SCH ×2 (09:02→20:29)
[2018-09-17] MEDS: chlorproMAZINE 25 MG TAB (Q0161) PO SCH ×4 (09:02→20:27)
--- NOTE | 2018-09-17 09:56 | MHPR ---
General Date: Sep 16, 2018 Time: 22:30 Post-Restraint Evaluation THE OUTCOME OF THE RESTRAINT: good EFFECTIVENESS OF THE RESTRAINT: Mechanical and/or chemical: both positive ANY EVIDENCE THAT THE PATIENT WAS AFFECTED EMOTIONALLY: no ANY NEED FOR COUNSELING/ASSISTANCE: no CHANGES IN TREATMENT PLAN: no RECOMMENDATIONS FOR FUTURE INCIDENTS: continue redirection, prn medication DUSTIN DINH DO Sep 17, 2018 9:56 am
--- NOTE | 2018-09-17 10:06 | MHIPNPDOC ---
[facility] Progress Note Progress Note DATE OF SERVICE: 09/17/18 HISTORY: Patient is a 28 -year-old , female, with a history of schizoaffective d/o just d/c [facility] last week after 1 month stay for wang with psychosis 09/02/18 who brought to ED yesterday by police under9.41 order after friend called police stating pt was cutting herself and threatening suicide. Pt ED record pt attempted to break into an appt and was then spotted walking down road with numerous bags, found outside storefront huddled in the the cold having no place to go. Per ED, when pt arrived she was floridly psychotic, bizarre, talking to self in room, calling staff numerous names, having flight of ideas, rapid speech, tangential, and easily distracted. Pt did except medications in ED when offered. Pt also spit water on the floor. Pt utox positive cannabis. [place] subtherapeutic at 0.20 when it was 0.97 upon d/c last week. Pt obviously noncompliant on her medication again and abusing substances. Pt seen today and appearing psychotic with fight of ideas, hyperverbal speech, and tangential thoughts. Delusional with pseudocyesis and stating she has undiagnosed epilepsy. Pt behaviorally reactive throwing water in med room. Agreeable to im zyprexa and ativan x1 when offered. Pt is a poor historian with poor ability to participate adequately with interview most likely due to wang/psychosis and medication noncompliance. History gathered from previous records. VITAL SIGNS: See below. NEW TEST RESULTS: lithium level 0.39 subtherapeutic but should improve with compliance once N/V improves. Pending urine culture. CMP and CBC wnl. Pending HIV screening. CURRENT MEDICATIONS: See below. MENTAL STATUS EXAMINATION: General Appearance: unkempt, disheveled, appears stated age, hospital scrubs/clothing Build: overweight Demeanor: preoccupied, very fidgety, other (bizarre, impulsive, manic) Eye Contact: fair Activity: agitated, anxious Behavior: cooperative, impulsive, hyperactive, restless Speech: rapid, pressured, disorganized Mood: anxious, elevated, hypomanic (manic), other (bizarre, reactive) Affect: inappropriate, labile, anxious, disorganized Thought Process: tangential, loose, associative, flight of ideas, racing, derailment Thought Content (Delusions): grandiose, bizarre, denies SI, HI, AVH , paranoia, delusions (somatic, states has "metal plates in body") Thought Content (Other): preoccupied, obsessional, ideas of reference, appears paranoid Thought Content (Aggressive): none reported Perception (Hallucinations): auditory, mumbling to self Perception (Other): none reported Cognition (Impairment of): attention/concentration, ability to abstract, unable to assess Cognition(Intelligence Est.): borderline Oriented: Awake, Alert, Oriented times three Insight: poor Judgment: Poor Psychosis: Associations, Abstract Thinking, Psychotic Perceptions DIAGNOSES: Schizoaffective d/o Cannabis use d/o ASSESSMENT: Pt restrained chemical and mechanical last night due to throwing things at staff, attempting to kick staff, throwing self to floor, being a danger to herself and others due to agitation and aggression. Pt tolerated restraints well with improvement in agitation and aggression. Pt did not sleep during the night though. Pt up this am and manic with pressured, disorganized speech and psychosis stating she has metal plates in her body and has been diagnosed with anorexia and bulimia (no history of this). Pt did take all her medication with my support to aid med nurse. Easily distracted and had to be redirected multiple times to take meds. Med nurse has been mixing pt's lithium into her yogurt for her to take so not getting whole does. Informed nurse that pt must drink her lithium first and then take her lithium to make sure she getti ng her whole does of lithium. Pt remains manic, psychotic, delusion, and impulsive. She is less agitated and not aggressive this am. Only partially compliant on medication and will encourage full compliance. Does take meds when I'm am there to make sure she takes them. Pt with no N/V last 3 days. Received Rocephin 2gm IM for UTI again yesterday. Will check cpk as pt has been getting a lot of thorazine recently for agitation and aggression. Put in order for transfer to [facility] Friday as this is the second time pt has had rapid readmission with severe wang and psychosis secondary to med noncompliance despite deaconate meds given prior to last d/c. Pt placed on 1:1 sitter still. Will have pts hands held each time administered medicine IM for now on. MANAGEMENT PLAN: Pending HIV screening. D/c oral haldol and start thorzaine 50mg qid and q6hr prn anxiety/agitation as haldol appears ineffective currently. Medications: zofran q4hr prn N/V haldol decanoate 100mg im given 09/10/18 thorazine 50mg qid lithium 600mg bid atarax 25mg q6hr prn anxiety trazodone 50mg qhs prn insomnia ativan 2mg q6hr prn anxiety agitation zyprexa zydis 5mg qam and 10mg qhs ZyPREXA ZYDIS 5 mg Q6HP PRN PO anxiety/agitation TIME SPENT: 30 minutes. Vital Signs Vital Signs Date Time Temp Pulse Resp B/P (MAP) Pulse Ox O2 Delivery O2 Flow Rate FiO2 09/17/18 06:23 97.8 97 20 149/92 (111) Current Medications Current Medications Acetaminophen (Tylenol Tab) 650 mg Q6HP PRN PO HEADACHE or DISCOMFORT Last administered on 09/17/18at 03:47; Start 09/09/18 at 14:30 Al Hydrox/Mg Hydrox/Simethicone (Mylanta) 30 ml Q4HP PRN PO HEARTBURN/INDIGESTION; Start 09/09/18 at 14:30 Chlorpromazine HCl (Thorazine) 25 mg TID PO Last administered on 09/10/18at 09:26; Start 09/09/18 at 16:00; Stop 09/10/18 at 09:31; Status DC Chlorpromazine HCl (Thorazine) 50 mg Q6HP PRN PO AGITATION; Start 09/16/18 at 09:15 Chlorpromazine HCl (Thorazine) 50 mg QID PO Last administered on 09/17/18at 09:02; Start 09/16/18 at 13:00 Chlorpromazine HCl (Thorazine) 50 mg STAT STAT IM Last administered on 09/15/18at 20:34; Start 09/15/18 at 20:23; Stop 09/15/18 at 20:27; Status DC Chlorpromazine HCl (Thorazine) 100 mg STAT STAT IM Last administered on 09/16/18at 18:48; Start 09/16/18 at 18:21; Stop 09/16/18 at 18:24; Status DC Chlorpromazine HCl (Thorazine) 100 mg STAT STAT IM Last administered on 09/16/18at 20:31; Start 09/16/18 at 18:58; Stop 09/16/18 at 19:00; Status DC Clonazepam (KlonoPIN) 0.5 mg TID PO Last administered on 09/15/18 21:34; Start 09/09/18 at 16:00; Stop 09/16/18 at 13:10; Status DC Diphenhydramine HCl (Benadryl) 50 mg TID PO Last administered on 09/10/18at 09:26; Start 09/09/18 at 16:00; Stop 09/11/18 at 15:28; Status DC Diphenhydramine HCl (Benadryl) 100 mg STAT STAT IM Last administered on 09/11/18at 21:54; Start 09/11/18 at 21:09; Stop 09/11/18 at 21:11; Status DC Haloperidol (Haldol) 5 mg TID PRN PO ANXIETY/AGITATION Last administered on 09/12/18 19:03; Start 09/09/18 at 14:30; Stop 09/16/18 at 09:15; Status DC Haloperidol (Haldol) 10 mg QID PO Last administered on 09/15/18 21:34; Start 09/10/18 at 09:00; Stop 09/16/18 at 09:15; Status DC Haloperidol (Haldol) 10 mg STAT STAT IM Last administered on 09/11/18at 16:08; Start 09/11/18 at 15:55; Stop 09/11/18 at 15:57; Status DC Haloperidol (Haldol) 10 mg STAT STAT PO ; Start 09/11/18 at 15:47; Stop 09/11/18 at 15:48; Status DC Haloperidol Decanoate (Haldol Decanoate) 100 mg Q28D IM ; Start 09/25/18 at 09:00 Hydroxyzine HCl (Atarax) 50 mg TIDP PRN PO ANXIETY Last administered on 09/15/18 21:34; Start 09/09/18 at 14:30 [place] Carbonate ([place]al[place] Oral Solution) 600 mg BID PO Last administered on 09/17/18at 09:02; Start 09/10/18 at 21:00 [place] Carbonate ([place] Carbonate) 600 mg BID PO Last administered on 09/10/18at 08:00; Start 09/09/18 at 21:00; Stop 09/10/18 at 09:31; Status DC Lorazepam (Ativan) 1 mg STAT STAT IM Last administered on 09/15/18at 20:34; Start 09/15/18 at 20:23; Stop 09/15/18 at 20:27; Status DC Lorazepam (Ativan) 2 mg STAT STAT IM Last administered on 09/11/18at 12:32; Start 09/11/18 at 12:19; Stop 09/11/18 at 12:27; Status DC Lorazepam (Ativan) 2 mg STAT STAT IM Last administered on 09/11/18at 21:53; Start 09/11/18 at 21:09; Stop 09/11/18 at 21:11; Status DC Lorazepam (Ativan) 2 mg STAT STAT PO Last administered on 09/15/18at 02:25; Start 09/15/18 at 02:25; Stop 09/15/18 at 02:26; Status DC Magnesium Hydroxide (Milk Of Magnesia) 30 ml DAILYPRN PRN PO CONSTIPATION; Start 09/09/18 at 14:30 Miscellaneous (Unresolved Clarification Entry) SEE LABEL COMMENTS DAILY XX ; Start 09/15/18 at 09:00; Stop 09/16/18 at 06:38; Status DC Miscellaneous (Unresolved Clarification Entry) SEE LABEL COMMENTS DAILY XX ; Start 09/16/18 at 09:00; Stop 09/16/18 at 09:25; Status DC Non-Formulary Medication ( See Comment Field Below ) SEE COMMENTS SECTION 1T@10 XX ; Start 09/16/18 at 10:00; Stop 09/16/18 at 10:00; Status DC Non-Formulary Medication ( See Comment Field Below ) SEE LABEL COMMENTS DAILY XX ; Start 09/14/18 at 09:00 Olanzapine (ZyPREXA) 5 mg Q4HP PRN PO AGITATION; Start 09/09/18 at 14:30 Olanzapine (Zyprexa Intramuscular) 10 mg STAT STAT IM Last administered on 09/11/18at 12:32; Start 09/11/18 at 12:19; Stop 09/11/18 at 12:21; Status DC Olanzapine (Zyprexa Intramuscular) 10 mg STAT STAT IM Last administered on 09/11/18at 21:55; Start 09/11/18 at 21:09; Stop 09/11/18 at 21:11; Status DC Ondansetron HCl (Zofran Odt) 4 mg Q6HP PRN PO NAUSEA OR VOMITING; Start 09/13/18 at 12:00 Paliperidone Palmitate (Invega Sustenna) 234 mg Q30D@0900 IM ; Start 09/24/18 at 09:00; Status Cancel Trazodone HCl (Desyrel) 50 mg QHSP PRN PO INSOMNIA Last administered on 09/17/18at 00:15; Start 09/09/18 at 14:30 Allergies Coded Allergies: Amoxicillin (Verified Allergy, Intermediate, Hives , 11/01/13) Sulfa Drugs (Verified Allergy, Mild, Rash, fever, vomiting, 11/01/13) Azithromycin (Verified Allergy, Unknown, 11/18/16) interacts with DUSTIN Ac DO Sep 17, 2018 10:06 am
[2018-09-17] MEDS: diphenhydrAMINE 12.5MG/5ML ELIXIR UDC PO SCH ×3 (11:28→20:30)
[2018-09-17] MEDS: hydrOXYzine 50 MG TAB PO PRN (22:44)
[2018-09-18] MEDS: **PENDING PPD ENTRY XX SCH (09:00)
[2018-09-18] MEDS: chlorproMAZINE 25 MG TAB (Q0161) PO SCH ×4 (09:55→21:45)
[2018-09-18] MEDS: diphenhydrAMINE 12.5MG/5ML ELIXIR UDC PO SCH ×3 (09:55→21:45)
[2018-09-18] MEDS: LITHIUM CARBONATE 300MG/5ML(8MEQ/5ML)ORAL SOLUTION UDC PO SCH ×2 (09:55→21:06)
[2018-09-18] MEDS: ACETAMINOPHEN TAB 650MG DOSE (2X325MG) PO PRN ×2 (10:14→18:28)
--- NOTE | 2018-09-18 10:22 | MHIPNPDOC ---
[facility] Progress Note Progress Note DATE OF SERVICE: 09/18/18 HISTORY: Patient is a 28 -year-old , female, with a history of schizoaffective d/o just d/c [facility] last week after 1 month stay for wang with psychosis 09/02/18 who brought to ED yesterday by police under9.41 order after friend called police stating pt was cutting herself and threatening suicide. Pt ED record pt attempted to break into an appt and was then spotted walking down road with numerous bags, found outside storefront huddled in the the cold having no place to go. Per ED, when pt arrived she was floridly psychotic, bizarre, talking to self in room, calling staff numerous names, having flight of ideas, rapid speech, tangential, and easily distracted. Pt did except medications in ED when offered. Pt also spit water on the floor. Pt utox positive cannabis. [place] subtherapeutic at 0.20 when it was 0.97 upon d/c last week. Pt obviously noncompliant on her medication again and abusing substances. Pt seen today and appearing psychotic with fight of ideas, hyperverbal speech, and tangential thoughts. Delusional with pseudocyesis and stating she has undiagnosed epilepsy. Pt behaviorally reactive throwing water in med room. Agreeable to im zyprexa and ativan x1 when offered. Pt is a poor historian with poor ability to participate adequately with interview most likely due to wang/psychosis and medication noncompliance. History gathered from previous records. VITAL SIGNS: See below. NEW TEST RESULTS: lithium level 0.39 subtherapeutic but should improve with compliance once N/V improves. urine culture negative. CMP and CBC wnl. HIV and hep C and B screening negative. CURRENT MEDICATIONS: See below. MENTAL STATUS EXAMINATION: General Appearance: unkempt, disheveled, appears stated age, hospital scrubs/clothing Build: overweight Demeanor: preoccupied, very fidgety, other (bizarre, impulsive, manic) Eye Contact: fair Activity: agitated, anxious Behavior: cooperative, impulsive, hyperactive, restless Speech: rapid, pressured, disorganized Mood: anxious, elevated, hypomanic (manic), other (bizarre, reactive) Affect: inappropriate, labile, anxious, disorganized Thought Process: tangential, loose, associative, flight of ideas, racing, derailment Thought Content (Delusions): grandiose, bizarre, denies SI, HI, AVH , paranoia, delusions (somatic, states has "metal plates in body") Thought Content (Other): preoccupied, obsessional, ideas of reference, appears paranoid Thought Content (Aggressive): none reported Perception (Hallucinations): auditory, mumbling to self Perception (Other): none reported Cognition (Impairment of): attention/concentration, ability to abstract, unable to assess Cognition(Intelligence Est.): borderline Oriented: Awake, Alert, Oriented times three Insight: poor Judgment: Poor Psychosis: Associations, Abstract Thinking, Psychotic Perceptions DIAGNOSES: Schizoaffective d/o Cannabis use d/o ASSESSMENT: No codes during the night. Per staff pt slept from 11pm to roughly 10am this am after being awake all day. Got pt up with med nurse and aided nurse in having pt take all her meds. Had to be redirected numerous times but did take them willingly. Pt encouraged to stay awake all day again today to promote full sleep at night and reduce codes during the night. Pt continues to be manic with pressured, disorganized speech and psychosis stating she is anorexic and bulimic still. Does deny pseudocyesis this admission. Pt remains manic, psychotic, delusion, and impulsive. She is less agitated and not aggressive this am. Compliant on all medication but does require continually redirection to take them. Does take meds when I'm am there to make sure she takes them. Pt with no N/V last 4 days. Received Rocephin 2gm IM for UTI again yesterday. Urine culture negative. Will check cpk as pt has been getting a lot of thorazine recently for agitation and aggression. Had administrative meeting yesterday for admission to [facility] [place] and agreed to go. This is the second time pt has had rapid readmission with severe wang and psychosis secondary to med noncompliance despite deaconate meds given prior to last d/c. Pt placed on 1:1 sitter still. Will have pts hands held each time administered medicine IM for now on. MANAGEMENT PLAN: Pending HIV screening. D/c oral haldol and start thorzaine 50mg qid and q6hr prn anxiety/agitation as haldol appears ineffective currently. Pending CPK Medications: zofran q4hr prn N/V haldol decanoate 100mg im given 09/10/18 thorazine 50mg qid lithium 600mg bid atarax 25mg q6hr prn anxiety trazodone 50mg qhs prn insomnia ativan 2mg q6hr prn anxiety agitation zyprexa zydis 5mg qam and 10mg qhs ZyPREXA ZYDIS 5 mg Q6HP PRN PO anxiety/agitation TIME SPENT: 30 minutes. Vital Signs Vital Signs Date Time Temp Pulse Resp B/P (MAP) Pulse Ox O2 Delivery O2 Flow Rate FiO2 09/17/18 06:23 97.8 97 20 149/92 (111) Current Medications Current Medications Acetaminophen (Tylenol Tab) 650 mg Q6HP PRN PO HEADACHE or DISCOMFORT Last administered on 09/17/18at 03:47; Start 09/09/18 at 14:30 Al Hydrox/Mg Hydrox/Simethicone (Mylanta) 30 ml Q4HP PRN PO HEARTBURN/INDIGESTION; Start 09/09/18 at 14:30 Cetylpyridinium Chloride (Cepacol) 1 yadi Q2HP PRN PO COUGH; Start 09/17/18 at 14:30 Chlorpromazine HCl (Thorazine) 25 mg TID PO Last administered on 09/10/18at 09:26; Start 09/09/18 at 16:00; Stop 09/10/18 at 09:31; Status DC Chlorpromazine HCl (Thorazine) 50 mg Q6HP PRN PO AGITATION; Start 09/16/18 at 09:15 Chlorpromazine HCl (Thorazine) 50 mg QID PO Last administered on 09/17/18at 20:27; Start 09/16/18 at 13:00 Chlorpromazine HCl (Thorazine) 50 mg STAT STAT IM Last administered on 09/15/18at 20:34; Start 09/15/18 at 20:23; Stop 09/15/18 at 20:27; Status DC Chlorpromazine HCl (Thorazine) 100 mg STAT STAT IM Last administered on 09/16/18at 18:48; Start 09/16/18 at 18:21; Stop 09/16/18 at 18:24; Status DC Chlorpromazine HCl (Thorazine) 100 mg STAT STAT IM Last administered on 09/16/18at 20:31; Start 09/16/18 at 18:58; Stop 09/16/18 at 19:00; Status DC Clonazepam (KlonoPIN) 0.5 mg TID PO Last administered on 09/15/18 21:34; Start 09/09/18 at 16:00; Stop 09/16/18 at 13:10; Status DC Diphenhydramine HCl (Benadryl Elixir) 50 mg Q6HP PRN PO ANXIETY; Start 09/17/18 at 10:45 Diphenhydramine HCl (Benadryl Elixir) 50 mg TID PO Last administered on 09/17/18at 20:30; Start 09/17/18 at 09:00 Diphenhydramine HCl (Benadryl) 50 mg TID PO Last administered on 09/10/18at 09:26; Start 09/09/18 at 16:00; Stop 09/11/18 at 15:28; Status DC Diphenhydramine HCl (Benadryl) 100 mg STAT STAT IM Last administered on 09/11/18at 21:54; Start 09/11/18 at 21:09; Stop 09/11/18 at 21:11; Status DC Haloperidol (Haldol) 5 mg TID PRN PO ANXIETY/AGITATION Last administered on 09/12/18 19:03; Start 09/09/18 at 14:30; Stop 09/16/18 at 09:15; Status DC Haloperidol (Haldol) 10 mg QID PO Last administered on 09/15/18 21:34; Start 09/10/18 at 09:00; Stop 09/16/18 at 09:15; Status DC Haloperidol (Haldol) 10 mg STAT STAT IM Last administered on 09/11/18at 16:08; Start 09/11/18 at 15:55; Stop 09/11/18 at 15:57; Status DC Haloperidol (Haldol) 10 mg STAT STAT PO ; Start 09/11/18 at 15:47; Stop 09/11/18 at 15:48; Status DC Haloperidol Decanoate (Haldol Decanoate) 100 mg Q28D IM ; Start 09/25/18 at 09:00 Hydroxyzine HCl (Atarax) 50 mg TIDP PRN PO ANXIETY Last administered on 09/17/18at 22:44; Start 09/09/18 at 14:30 [place]upora Carbonate (Eskalith Oral Solution) 600 mg BID PO Last administered on 09/17/18at 20:29; Start 09/10/18 at 21:00 Eupora Carbonate (Eupora Carbonate) 600 mg BID PO Last administered on 09/10/18at 08:00; Start 09/09/18 at 21:00; Stop 09/10/18 at 09:31; Status DC Lorazepam (Ativan) 1 mg STAT STAT IM Last administered on 09/15/18at 20:34; Start 09/15/18 at 20:23; Stop 09/15/18 at 20:27; Status DC Lorazepam (Ativan) 2 mg STAT STAT IM Last administered on 09/11/18at 12:32; Start 09/11/18 at 12:19; Stop 09/11/18 at 12:27; Status DC Lorazepam (Ativan) 2 mg STAT STAT IM Last administered on 09/11/18at 21:53; Start 09/11/18 at 21:09; Stop 09/11/18 at 21:11; Status DC Lorazepam (Ativan) 2 mg STAT STAT PO Last administered on 09/15/18at 02:25; Start 09/15/18 at 02:25; Stop 09/15/18 at 02:26; Status DC Magnesium Hydroxide (Milk Of Magnesia) 30 ml DAILYPRN PRN PO CONSTIPATION; Sta rt 09/09/18 at 14:30 Miscellaneous (Unresolved Clarification Entry) SEE LABEL COMMENTS DAILY XX ; Start 09/15/18 at 09:00; Stop 09/16/18 at 06:38; Status DC Miscellaneous (Unresolved Clarification Entry) SEE LABEL COMMENTS DAILY XX ; Start 09/16/18 at 09:00; Stop 09/16/18 at 09:25; Status DC Non-Formulary Medication ( See Comment Field Below ) SEE COMMENTS SECTION 1T@10 XX ; Start 09/16/18 at 10:00; Stop 09/16/18 at 10:00; Status DC Non-Formulary Medication ( See Comment Field Below ) SEE LABEL COMMENTS DAILY XX ; Start 09/14/18 at 09:00 Olanzapine (ZyPREXA) 5 mg Q4HP PRN PO AGITATION; Start 09/09/18 at 14:30 Olanzapine (Zyprexa Intramuscular) 10 mg STAT STAT IM Last administered on 09/11/18at 12:32; Start 09/11/18 at 12:19; Stop 09/11/18 at 12:21; Status DC Olanzapine (Zyprexa Intramuscular) 10 mg STAT STAT IM Last administered on 09/11/18at 21:55; Start 09/11/18 at 21:09; Stop 09/11/18 at 21:11; Status DC Ondansetron HCl (Zofran Odt) 4 mg Q6HP PRN PO NAUSEA OR VOMITING; Start 09/13/18 at 12:00 Paliperidone Palmitate (Invega Sustenna) 234 mg Q30D@0900 IM ; Start 09/24/18 at 09:00; Status Cancel Trazodone HCl (Desyrel) 50 mg QHSP PRN PO INSOMNIA Last administered on 09/17/18at 22:43; Start 09/09/18 at 14:30 Allergies Coded Allergies: Amoxicillin (Verified Allergy, Intermediate, Hives , 11/01/13) Sulfa Drugs (Verified Allergy, Mild, Rash, fever, vomiting, 11/01/13) Azithromycin (Verified Allergy, Unknown, 11/18/16) interacts with DUSTIN Ac DO Sep 18, 2018 9:03 am
[2018-09-18] MEDS: hydrOXYzine 50 MG TAB PO PRN ×3 (10:57→21:06)
[2018-09-18 18:00] VITALS: BP 136/84
[2018-09-19] MEDS: ACETAMINOPHEN TAB 650MG DOSE (2X325MG) PO PRN ×4 (02:14→23:34)
[2018-09-19] MEDS: CEPACOL LOZENGE PO PRN ×3 (02:17→15:28)
[2018-09-19] MEDS: diphenhydrAMINE 12.5MG/5ML ELIXIR UDC PO PRN (02:38)
[2018-09-19] MEDS ORDERED: hydrOXYzine 50 MG TAB PO ONE (02:45)
[2018-09-19] MEDS ORDERED: LORazepam 1 MG TAB PO ONE (03:15)
[2018-09-19] MEDS ORDERED: chlorproMAZINE INJ 50MG/2ML AMP (J3230) IM ONE ×2 (03:15→17:00)
[2018-09-19] MEDS: LITHIUM CARBONATE 300MG/5ML(8MEQ/5ML)ORAL SOLUTION UDC PO SCH ×2 (08:45→20:10)
[2018-09-19] MEDS: diphenhydrAMINE 12.5MG/5ML ELIXIR UDC PO SCH ×3 (08:46→21:42)
[2018-09-19] MEDS: **PENDING PPD ENTRY XX SCH (08:48)
[2018-09-19] MEDS: chlorproMAZINE 25 MG TAB (Q0161) PO SCH ×3 (09:00→21:41)
[2018-09-19] MEDS: hydrOXYzine 50 MG TAB PO PRN ×2 (13:26→20:11)
[2018-09-19] MEDS ORDERED: zolPIDEM TARTRATE 5 MG TAB PO ONE (21:00)
[2018-09-20] MEDS: hydrOXYzine 50 MG TAB PO PRN ×3 (03:21→21:21)
[2018-09-20] MEDS: **PENDING PPD ENTRY XX SCH (09:00)
[2018-09-20] MEDS: chlorproMAZINE 25 MG TAB (Q0161) PO SCH ×4 (09:00→21:00)
[2018-09-20] MEDS: LITHIUM CARBONATE 300MG/5ML(8MEQ/5ML)ORAL SOLUTION UDC PO SCH ×2 (11:19→21:21)
[2018-09-20] MEDS: diphenhydrAMINE 12.5MG/5ML ELIXIR UDC PO SCH ×3 (11:21→21:00)
[2018-09-20] MEDS: diphenhydrAMINE 12.5MG/5ML ELIXIR UDC PO PRN (13:41)
[2018-09-20] MEDS: ACETAMINOPHEN TAB 650MG DOSE (2X325MG) PO PRN ×2 (16:23→22:41)
[2018-09-20] MEDS ORDERED: OLANZapine INTRAMUSCULAR 10 MG VIAL (S0166) IM STA (18:47)
[2018-09-20] MEDS ORDERED: diphenhydrAMINE INJ 50MG/ML VIAL (J1200) IM STA (21:51)
[2018-09-20] MEDS ORDERED: chlorproMAZINE INJ 50MG/2ML AMP (J3230) IM STA (21:51)
[2018-09-20] MEDS ORDERED: LORazepam 2 MG/ML VIAL (J2060) IM ONE (22:45)
[2018-09-20 23:00] VITALS: BP 140/91
[2018-09-20 23:15] VITALS: BP 150/89
[2018-09-20 23:30] VITALS: BP 138/86
[2018-09-20 23:45] VITALS: BP 146/90
[2018-09-21] VITALS: BP 132/74
[2018-09-21 00:15] VITALS: BP 138/82
[2018-09-21] MEDS: chlorproMAZINE 25 MG TAB (Q0161) PO SCH ×3 (10:27→16:22)
[2018-09-21] MEDS: diphenhydrAMINE 12.5MG/5ML ELIXIR UDC PO SCH ×2 (10:27→16:00)
[2018-09-21] MEDS: **PENDING PPD ENTRY XX SCH (10:27)
[2018-09-21] MEDS: hydrOXYzine 50 MG TAB PO PRN ×3 (10:27→21:33)
[2018-09-21] MEDS: LITHIUM CARBONATE 300MG/5ML(8MEQ/5ML)ORAL SOLUTION UDC PO SCH ×2 (10:27→20:03)
--- NOTE | 2018-09-21 10:29 | MHIPNPDOC ---
[facility] [place] Progress Note DATE OF SERVICE: 09/21/18 HISTORY: Patient is a 28 -year-old , female, with a history of schizoaffective d/o just d/c [facility] last week after 1 month stay for wang with psychosis 09/02/18 who brought to ED yesterday by police under9.41 order after friend called police stating pt was cutting herself and threatening suicide. Pt ED record pt attempted to break into an appt and was then spotted walking down road with numerous bags, found outside storefront huddled in the the cold having no place to go. Per ED, when pt arrived she was floridly psychotic, bizarre, talking to self in room, calling staff numerous names, having flight of ideas, rapid speech, tangential, and easily distracted. Pt did except medications in ED when offered. Pt also spit water on the floor. Pt utox positive cannabis. [place] subtherapeutic at 0.20 when it was 0.97 upon d/c last week. Pt obviously noncompliant on her medication again and abusing substances. Pt seen today and appearing psychotic with fight of ideas, hyperverbal speech, and tangential thoughts. Delusional with pseudocyesis and stating she has undiagnosed epilepsy. Pt behaviorally reactive throwing water in med room. Agreeable to im zyprexa and ativan x1 when offered. Pt is a poor historian with poor ability to participate adequately with interview most likely due to wang/psychosis and medication noncompliance. History gathered from previous records. VITAL SIGNS: See below. NEW TEST RESULTS: lithium level 0.39 subtherapeutic but should improve with compliance once N/V improves. urine culture negative. CMP and CBC wnl. HIV and hep C and B screening negative. CURRENT MEDICATIONS: See below. MENTAL STATUS EXAMINATION: General Appearance: unkempt, disheveled, appears stated age, hospital scrubs/clothing Build: overweight Demeanor: less preoccupied, less fidgety, other (bizarre, impulsive, less manic) Eye Contact: fair Activity: annoyed I'm waking her up, irritable Behavior: cooperative, impulsive, less hyperactive, less restless Speech: less rapid, pressured, disorganized Mood: irritable, less elevated, hypomanic, other (bizarre, reactive) Affect: inappropriate, labile, disorganized at times Thought Process: tangential, loose, associative, flight of ideas, racing, derailment Thought Content (Delusions): grandiose, bizarre, denies SI, HI, AVH , paranoia, delusions (somatic, states has "metal plates in body") Thought Content (Other): preoccupied, obsessional, ideas of reference, appears paranoid Thought Content (Aggressive): none reported Perception (Hallucinations): auditory, mumbling to self Perception (Other): none reported Cognition (Impairment of): attention/concentration, ability to abstract, unable to assess Cognition(Intelligence Est.): borderline Oriented: Awake, Alert, Oriented times three Insight: poor Judgment: Poor Psychosis: Associations, Abstract Thinking, Psychotic Perceptions DIAGNOSES: Schizoaffective d/o Cannabis use d/o ASSESSMENT: Pt coded (chemical and mechanical) Friday afternoon for agitation, aggression toward staff, and psychosis. Refused po meds but did take im meds willingly. NO codes last night. Got pt up this morning which took a few times of redirection to get her up for the day. Continuing to awake pt every morning as shown beneficial in preventing agitation, psychosis, codes in afternoon and night as well as gives pt the ability to sleep at night. Pt encouraged to stay awake all day again today to promote full sleep at night and reduce codes during the night. Pt appears less manic with pressured, disorganized speech but remains psychotic and reactive at times. Does deny pseudocyesis this admission. Pt remains psychotic, delusion, and impulsive. She is less agitated and not aggressive this am. Compliant on all medication but does require continually redirection to take them. Does take meds when I'm am there to make sure she takes them. Will check cpk as pt refused first lab order as pt has been getting a lot of thorazine recently for agitation and aggression. Pt has agreed on admission to [facility]. This is the second time pt has had rapid readmission with severe wang and psychosis secondary to med noncompliance despite deaconate meds given prior to last d/c. Pt placed on 1:1 sitter still. Will have pts hands held each time administered medicine IM for now on. MANAGEMENT PLAN: Pending HIV screening. D/c oral haldol and start thorzaine 50mg qid and q6hr prn anxiety/agitation as haldol appears ineffective currently. Pending CPK and lithium level. Medications: zofran q4hr prn N/V haldol decanoate 100mg im given 09/10/18 thorazine 50mg qid lithium 600mg bid atarax 25mg q6hr prn anxiety trazodone 50mg qhs prn insomnia ativan 2mg q6hr prn anxiety agitation zyprexa zydis 5mg qam and 10mg qhs ZyPREXA ZYDIS 5 mg Q6HP PRN PO anxiety/agitation TIME SPENT: 30 minutes. Vital Signs Vital Signs Date Time Temp Pulse Resp B/P (MAP) Pulse Ox O2 Delivery O2 Flow Rate FiO2 09/21/18 00:15 101 16 138/82 09/20/18 23:30 98.0 Current Medications Current Medications Acetaminophen (Tylenol Tab) 650 mg Q6HP PRN PO HEADACHE or DISCOMFORT Last administered on 09/20/18at 22:41; Start 09/09/18 at 14:30 Al Hydrox/Mg Hydrox/Simethicone (Mylanta) 30 ml Q4HP PRN PO HEARTBURN/INDIGESTION; Start 09/09/18 at 14:30 Cetylpyridinium Chloride (Cepacol) 1 yadi Q2HP PRN PO COUGH Last administered on 09/19/18at 15:28; Start 09/17/18 at 14:30 Chlorpromazine HCl (Thorazine) 25 mg TID PO Last administered on 09/10/18at 09:26; Start 09/09/18 at 16:00; Stop 09/10/18 at 09:31; Status DC Chlorpromazine HCl (Thorazine) 50 mg Q6HP PRN PO AGITATION; Start 09/16/18 at 09:15 Chlorpromazine HCl (Thorazine) 50 mg QID PO Last administered on 09/19/18at 21:41; Start 09/16/18 at 13:00; Status Future hold Chlorpromazine HCl (Thorazine) 50 mg STAT STAT IM Last administered on 09/20/18at 22:06; Start 09/20/18 at 21:51; Stop 09/20/18 at 21:53; Status DC Chlorpromazine HCl (Thorazine) 50 mg STAT STAT IM Last administered on 09/15/18at 20:34; Start 09/15/18 at 20:23; Stop 09/15/18 at 20:27; Status DC Chlorpromazine HCl (Thorazine) 100 mg STAT STAT IM Last administered on 09/16/18 18:48; Start 09/16/18 at 18:21; Stop 09/16/18 at 18:24; Status DC Chlorpromazine HCl (Thorazine) 100 mg STAT STAT IM Last administered on 09/16/18 20:31; Start 09/16/18 at 18:58; Stop 09/16/18 at 19:00; Status DC Clonazepam (KlonoPIN) 0.5 mg TID PO Last administered on 09/15/18 21:34; Start 09/09/18 at 16:00; Stop 09/16/18 at 13:10; Status DC Diphenhydramine HCl (Benadryl Elixir) 50 mg Q6HP PRN PO ANXIETY Last administered on 09/20/18 13:41; Start 09/17/18 at 10:45 Diphenhydramine HCl (Benadryl Elixir) 50 mg TID PO Last administered on 09/20/18 11:21; Start 09/17/18 at 09:00 Diphenhydramine HCl (Benadryl) 50 mg STAT STAT IM Last administered on 09/20/18 22:06; Start 09/20/18 at 21:51; Stop 09/20/18 at 21:53; Status DC Diphenhydramine HCl (Benadryl) 50 mg TID PO Last administered on 09/10/18 09:26; Start 09/09/18 at 16:00; Stop 09/11/18 at 15:28; Status DC Diphenhydramine HCl (Benadryl) 100 mg STAT STAT IM Last administered on 09/11/18 21:54; Start 09/11/18 at 21:09; Stop 09/11/18 at 21:11; Status DC Haloperidol (Haldol) 5 mg TID PRN PO ANXIETY/AGITATION Last administered on 09/12/18 19:03; Start 09/09/18 at 14:30; Stop 09/16/18 at 09:15; Status DC Haloperidol (Haldol) 10 mg QID PO Last administered on 09/15/18at 21:34; Start 09/10/18 at 09:00; Stop 09/16/18 at 09:15; Status DC Haloperidol (Haldol) 10 mg STAT STAT IM Last administered on 09/11/18at 16:08; Start 09/11/18 at 15:55; Stop 09/11/18 at 15:57; Status DC Haloperidol (Haldol) 10 mg STAT STAT PO ; Start 09/11/18 at 15:47; Stop 09/11/18 at 15:48; Status DC Haloperidol Decanoate (Haldol Decanoate) 100 mg Q28D IM ; Start 09/25/18 at 09:00 Hydroxyzine HCl (Atarax) 50 mg TIDP PRN PO ANXIETY Last administered on 9at 21:21; Start 09/09/18 at 14:30 Universal Carbonate (Eskalith Oral Solution) 600 mg BID PO Last administered on 09/20/18at 21:21; Start 09/10/18 at 21:00 Universal Carbonate (Universal Carbonate) 600 mg BID PO Last administered on 09/10/18at 08:00; Start 09/09/18 at 21:00; Stop 09/10/18 at 09:31; Status DC Lorazepam (Ativan) 1 mg STAT STAT IM Last administered on 09/15/18at 20:34; S tart 09/15/18 at 20:23; Stop 09/15/18 at 20:27; Status DC Lorazepam (Ativan) 2 mg STAT STAT IM Last administered on 09/11/18at 12:32; Start 09/11/18 at 12:19; Stop 09/11/18 at 12:27; Status DC Lorazepam (Ativan) 2 mg STAT STAT IM Last administered on 09/11/18at 21:53; Start 09/11/18 at 21:09; Stop 09/11/18 at 21:11; Status DC Lorazepam (Ativan) 2 mg STAT STAT PO Last administered on 09/15/18at 02:25; Start 09/15/18 at 02:25; Stop 09/15/18 at 02:26; Status DC Magnesium Hydroxide (Milk Of Magnesia) 30 ml DAILYPRN PRN PO CONSTIPATION; Start 09/09/18 at 14:30 Miscellaneous (Unresolved Clarification Entry) SEE LABEL COMMENTS DAILY XX ; Start 09/15/18 at 09:00; Stop 09/16/18 at 06:38; Status DC Miscellaneous (Unresolved Clarification Entry) SEE LABEL COMMENTS DAILY XX ; Start 09/16/18 at 09:00; Stop 09/16/18 at 09:25; Status DC Non-Formulary Medication ( See Comment Field Below ) SEE COMMENTS SECTION 1T@10 XX ; Start 09/16/18 at 10:00; Stop 09/16/18 at 10:00; Status DC Non-Formulary Medication ( See Comment Field Below ) SEE LABEL COMMENTS DAILY XX ; Start 09/14/18 at 09:00 Olanzapine (ZyPREXA) 5 mg Q4HP PRN PO AGITATION; Start 09/09/18 at 14:30 Olanzapine (Zyprexa Intramuscular) 10 mg STAT STAT IM Last administered on 09/11/18at 12:32; Start 09/11/18 at 12:19; Stop 09/11/18 at 12:21; Status DC Olanzapine (Zyprexa Intramuscular) 10 mg STAT STAT IM Last administered on 09/11/18at 21:55; Start 09/11/18 at 21:09; Stop 09/11/18 at 21:11; Status DC Olanzapine (Zyprexa Intramuscular) 10 mg STAT STAT IM Last administered on 09/20/18at 19:00; Start 09/20/18 at 18:47; Stop 09/20/18 at 18:49; Status DC Ondansetron HCl (Zofran Odt) 4 mg Q6HP PRN PO NAUSEA OR VOMITING; Start 09/13/18 at 12:00 Paliperidone Palmitate (Invega Sustenna) 234 mg Q30D@0900 IM ; Start 09/24/18 at 09:00; Status Cancel Trazodone HCl (Desyrel) 50 mg QHSP PRN PO INSOMNIA Last administered on 09/17/18at 22:43; Start 09/09/18 at 14:30 Allergies Coded Allergies: Amoxicillin (Verified Allergy, Intermediate, Hives , 11/01/13) Sulfa Drugs (Verified Allergy, Mild, Rash, fever, vomiting, 11/01/13) Azithromycin (Verified Allergy, Unknown, 11/18/16) interacts with DUSTIN Ac 11, 2019 10:29 am
[2018-09-21] MEDS ORDERED: OLANZapine INTRAMUSCULAR 10 MG VIAL (S0166) IM ONE (14:15)
[2018-09-21] MEDS ORDERED: chlorproMAZINE INJ 50MG/2ML AMP (J3230) IM ONE (14:15)
[2018-09-21] MEDS: CEPACOL LOZENGE PO PRN (21:24)
[2018-09-21] MEDS: ACETAMINOPHEN TAB 650MG DOSE (2X325MG) PO PRN (21:24)
[2018-09-22] MEDS: diphenhydrAMINE 12.5MG/5ML ELIXIR UDC PO SCH ×4 (01:03→21:00)
[2018-09-22] MEDS: chlorproMAZINE 25 MG TAB (Q0161) PO SCH ×5 (03:07→21:00)
[2018-09-22 06:44] VITALS: BP 122/62
--- NOTE | 2018-09-22 06:45 | MHIPN ---
DATE OF VISIT: 09/20/2018 I was called this evening, the patient has been agitated, aggressive and not amenable to directions, had been offered the day's medications and received them including diphenhydramine 50 mg she received intramuscular during the day, had declined the oral diphenhydramine, and later on, agitated and was given further anti-agitation medications which included chlorpromazine 50 mg intramuscularly at 4 p.m., but has essentially not responded to these measures. She became further agitated, aggressive, not amenable to further redirection and in order to maintain her safety and those of others, was placed in 4-point restraints. I came to see her soon afterwards, within about 15 minutes, and she was in restraints by then, was calmer than she had been during the day. She had displayed a labile affect, somewhat less labile at present. She will be monitored in the setting, and will be assessed. The restraints will be removed at the earliest possible time, as long as it is safe. She had taken oral [place] earlier today. She received Atarax 50 mg by mouth as well. She was given Zyprexa 10 mg intramuscularly this evening, at about 7 p.m. The most recent medications she has received include lorazepam 2 mg intramuscular, chlorpromazine 50 mg intramuscular, diphenhydramine 50 mg intramuscular. Vital signs are being monitored, most recent ones include: Blood pressure 140/91, pulse 104, temperature 97.7. She has required regular interventions, daily, and essentially needs long-term care given her recent several hospitalizations, outpatient care is not effective for this patient. Given the patterns of her clinical condition, the agitation, the intrusiveness and her inability to maintain safety, I strongly recommend considering treatment over objection as well, and making an application for it.
[2018-09-22] MEDS: **PENDING PPD ENTRY XX SCH (09:00)
[2018-09-22] MEDS: hydrOXYzine 50 MG TAB PO PRN ×3 (09:20→22:17)
[2018-09-22] MEDS: LITHIUM CARBONATE 300MG/5ML(8MEQ/5ML)ORAL SOLUTION UDC PO SCH ×2 (09:21→21:06)
--- NOTE | 2018-09-22 11:56 | MHIPNPDOC ---
[facility] Progress Note Progress Note DATE OF SERVICE: 09/22/18 HISTORY: Patient is a 28 -year-old , female, with a history of schizoaffective d/o just d/c [facility] last week after 1 month stay for wang with psychosis 09/02/18 who brought to ED yesterday by police under9.41 order after friend called police stating pt was cutting herself and threatening suicide. Pt ED record pt attempted to break into an appt and was then spotted walking down road with numerous bags, found outside storefront huddled in the the cold having no place to go. Per ED, when pt arrived she was floridly psychotic, bizarre, talking to self in room, calling staff numerous names, having flight of ideas, rapid speech, tangential, and easily distracted. Pt did except medications in ED when offered. Pt also spit water on the floor. Pt utox positive cannabis. [place] subtherapeutic at 0.20 when it was 0.97 upon d/c last week. Pt obviously noncompliant on her medication again and abusing substances. Pt seen today and appearing psychotic with fight of ideas, hyperverbal speech, and tangential thoughts. Delusional with pseudocyesis and stating she has undiagnosed epilepsy. Pt behaviorally reactive throwing water in med room. Agreeable to im zyprexa and ativan x1 when offered. Pt is a poor historian with poor ability to participate adequately with interview most likely due to wang/psychosis and medication noncompliance. History gathered from previous records. VITAL SIGNS: See below. NEW TEST RESULTS: lithium level 0.39 subtherapeutic but should improve with compliance once N/V improves. urine culture negative. CMP and CBC wnl. HIV and hep C and B screening negative. CURRENT MEDICATIONS: See below. MENTAL STATUS EXAMINATION: General Appearance: improved cleanliness, appears stated age, hospital scrubs/clothing Build: overweight Demeanor: less preoccupied, less fidgety, other (bizarre, impulsive, less manic) Eye Contact: fair Activity: annoyed I'm waking her up, irritable Behavior: cooperative, impulsive, less hyperactive, less restless Speech: less rapid, pressured, disorganized, unable to make out at times due to rambling Mood: irritable, less elevated, hypomanic, other (bizarre, reactive) Affect: inappropriate, labile, disorganized at times Thought Process: tangential, loose, associative, flight of ideas, racing, derailment Thought Content (Delusions): grandiose, bizarre, denies SI, HI, AVH , paranoia, delusions (somatic, states has "metal plates in body") Thought Content (Other): preoccupied, obsessional, ideas of reference, appears paranoid Thought Content (Aggressive): none reported Perception (Hallucinations): auditory, mumbling to self Perception (Other): none reported Cognition (Impairment of): attention/concentration, ability to abstract, unable to assess Cognition(Intelligence Est.): borderline Oriented: Awake, Alert, Oriented times three Insight: poor Judgment: Poor Psychosis: Associations, Abstract Thinking, Psychotic Perceptions DIAGNOSES: Schizoaffective d/o Cannabis use d/o ASSESSMENT: Pt was not coded last night. She was compliant with all her medication yesterday. Encouraged to take oral meds each time due. Pt encouraged to get up this am which she did w/o redirection multiple times to get up out of bed. Still rambling nonsensically to no one in particular in the milieu. Continuing to awake pt every morning as shown beneficial in preventing agitation, psychosis, codes in afternoon and night as well as gives pt the ability to sleep at night. Pt encouraged to stay awake all day again today to promote full sleep at night and reduce codes during the night. Pt appears less manic with pressured, disorganized speech but remains psychotic and reactive at times. Does deny pseudocyesis this admission. Pt remains psychotic, delusion, and impulsive. She is less agitated and not aggressive this am. Compliant on most medication but does require continually redirection to take them. Does take meds when I'm am there to make sure she takes them. Will check cpk and lithium as pt refused first lab orders on Friday or Friday. (states will do today) as pt has been getting a lot of thorazine recently for agitation and aggression. Pt also encouraged to have labs done as she's endorsing foot pain per nurse (possibly due to hard floors) and will have slippers brought in to pt by family and need CK level to make sure it's not elevated and causing muscle pain. Pt has agreed on admission to [facility]. This is the second time pt has had rapid readmission with severe wang and psychosis secondary to med noncompliance despite deaconate meds given prior to last d/c. Pt placed on 1:1 sitter still. Will have pts hands held each time administered medicine IM for now on. MANAGEMENT PLAN: Pending HIV screening. D/c oral haldol and start thorzaine 50mg qid and q6hr prn anxiety/agitation as haldol appears ineffective currently. Pending CPK and lithium level. Medications: zofran q4hr prn N/V haldol decanoate 100mg im given 09/10/18 thorazine 50mg qid lithium 600mg bid atarax 25mg q6hr prn anxiety trazodone 50mg qhs prn insomnia ativan 2mg q6hr prn anxiety agitation zyprexa zydis 5mg qam and 10mg qhs ZyPREXA ZYDIS 5 mg Q6HP PRN PO anxiety/agitation TIME SPENT: 30 minutes. Vital Signs Vital Signs Date Time Temp Pulse Resp B/P (MAP) Pulse Ox O2 Delivery O2 Flow Rate FiO2 09/22/18 06:44 98.0 66 12 122/62 (82) Current Medications Current Medications Acetaminophen (Tylenol Tab) 650 mg Q6HP PRN PO HEADACHE or DISCOMFORT Last administered on 09/21/18at 21:24; Start 09/09/18 at 14:30 Al Hydrox/Mg Hydrox/Simethicone (Mylanta) 30 ml Q4HP PRN PO HEARTBURN/INDIGESTION; Start 09/09/18 at 14:30 Cetylpyridinium Chloride (Cepacol) 1 yadi Q2HP PRN PO COUGH Last administered on 09/21/18at 21:24; Start 09/17/18 at 14:30 Chlorpromazine HCl (Thorazine) 25 mg TID PO Last administered on 09/10/18at 09:26; Start 09/09/18 at 16:00; Stop 09/10/18 at 09:31; Status DC Chlorpromazine HCl (Thorazine) 50 mg Q6HP PRN PO AGITATION; Start 09/16/18 at 09:15 Chlorpromazine HCl (Thorazine) 50 mg QID PO Last administered on 09/21/18at 16:22; Start 09/16/18 at 13:00; Status Future hold Chlorpromazine HCl (Thorazine) 50 mg STAT STAT IM Last administered on 22:06; Start 09/20/18 at 21:51; Stop 09/20/18 at 21:53; Status DC Chlorpromazine HCl (Thorazine) 50 mg STAT STAT IM Last administered on 09/15/18 20:34; Start 09/15/18 at 20:23; Stop 09/15/18 at 20:27; Status DC Chlorpromazine HCl (Thorazine) 100 mg STAT STAT IM Last administered on 09/16/18at 18:48; Start 09/16/18 at 18:21; Stop 09/16/18 at 18:24; Status DC Chlorpromazine HCl (Thorazine) 100 mg STAT STAT IM Last administered on 09/16/18 20:31; Start 09/16/18 at 18:58; Stop 09/16/18 at 19:00; Status DC Clonazepam (KlonoPIN) 0.5 mg TID PO Last administered on 09/15/18 21:34; Start 09/09/18 at 16:00; Stop 09/16/18 at 13:10; Status DC Diphenhydramine HCl (Benadryl Elixir) 50 mg Q6HP PRN PO ANXIETY Last administered on 09/20/18at 13:41; Start 09/17/18 at 10:45 Diphenhydramine HCl (Benadryl Elixir) 50 mg TID PO Last administered on 09/22/18at 01:03; Start 09/17/18 at 09:00 Diphenhydramine HCl (Benadryl) 50 mg STAT STAT IM Last administered on 09/20/18at 22:06; Start 09/20/18 at 21:51; Stop 09/20/18 at 21:53; Status DC Diphenhydramine HCl (Benadryl) 50 mg TID PO Last administered on 09/10/18at 09:26; Start 09/09/18 at 16:00; Stop 09/11/18 at 15:28; Status DC Diphenhydramine HCl (Benadryl) 100 mg STAT STAT IM Last administered on 09/11/18at 21:54; Start 09/11/18 at 21:09; Stop 09/11/18 at 21:11; Status DC Haloperidol (Haldol) 5 mg TID PRN PO ANXIETY/AGITATION Last administered on 09/12/18 19:03; Start 09/09/18 at 14:30; Stop 09/16/18 at 09:15; Status DC Haloperidol (Haldol) 10 mg QID PO Last administered on 09/15/18at 21:34; Start 09/10/18 at 09:00; Stop 09/16/18 at 09:15; Status DC Haloperidol (Haldol) 10 mg STAT STAT IM Last administered on 09/11/18at 16:08; Start 09/11/18 at 15:55; Stop 09/11/18 at 15:57; Status DC Haloperidol (Haldol) 10 mg STAT STAT PO ; Start 09/11/18 at 15:47; Stop 09/11/18 at 15:48; Status DC Haloperidol Decanoate (Haldol Decanoate) 100 mg Q28D IM ; Start 09/25/18 at 09:00 Hydroxyzine HCl (Atarax) 50 mg TIDP PRN PO ANXIETY Last administered on 09/22/18at 09:20; Start 09/09/18 at 14:30 [place]ony Carbonate (Eskalith Oral Solution) 600 mg BID PO Last administered on 09/22/18at 09:21; Start 09/10/18 at 21:00 [place]ony Carbonate ([place] Carbonate) 600 mg BID PO Last administered on 09/10/18at 08:00; Start 09/09/18 at 21:00; Stop 09/10/18 at 09:31; Status DC Lorazepam (Ativan) 1 mg STAT STAT IM Last administered on 09/15/18at 20:34; Start 09/15/18 at 20:23; Stop 09/15/18 at 20:27; Status DC Lorazepam (Ativan) 2 mg STAT STAT IM Last administered on 09/11/18at 12:32; Start 09/11/18 at 12:19; Stop 09/11/18 at 12:27; Status DC Lorazepam (Ativan) 2 mg STAT STAT IM Last administered on 09/11/18at 21:53; Start 09/11/18 at 21:09; Stop 09/11/18 at 21:11; Status DC Lorazepam (Ativan) 2 mg STAT STAT PO Last administered on 09/15/18at 02:25; Start 09/15/18 at 02:25; Stop 09/15/18 at 02:26; Status DC Magnesium Hydroxide (Milk Of Magnesia) 30 ml DAILYPRN PRN PO CONSTIPATION; Start 09/09/18 at 14:30 Miscellaneous (Unresolved Clarification Entry) SEE LABEL COMMENTS DAILY XX ; Start 09/15/18 at 09:00; Stop 09/16/18 at 06:38; Status DC Miscellaneous (Unresolved Clarification Entry) SEE LABEL COMMENTS DAILY XX ; Start 09/16/18 at 09:00; Stop 09/16/18 at 09:25; Status DC Non-Formulary Medication ( See Comment Field Below ) SEE COMMENTS SECTION 1T@10 XX ; Start 09/16/18 at 10:00; Stop 09/16/18 at 10:00; Status DC Non-Formulary Medication ( See Comment Field Below ) SEE LABEL COMMENTS DAILY XX ; Start 09/14/18 at 09:00 Olanzapine (ZyPREXA) 5 mg Q4HP PRN PO AGITATION; Start 09/09/18 at 14:30 Olanzapine (Zyprexa Intramuscular) 10 mg STAT STAT IM Last administered on 09/11/18at 12:32; Start 09/11/18 at 12:19; Stop 09/11/18 at 12:21; Status DC Olanzapine (Zyprexa Intramuscular) 10 mg STAT STAT IM Last administered on 09/11/18at 21:55; Start 09/11/18 at 21:09; Stop 09/11/18 at 21:11; Status DC Olanzapine (Zyprexa Intramuscular) 10 mg STAT STAT IM Last administered on 09/20/18at 19:00; Start 09/20/18 at 18:47; Stop 09/20/18 at 18:49; Status DC Ondansetron HCl (Zofran Odt) 4 mg Q6HP PRN PO NAUSEA OR VOMITING; Start 09/13/18 at 12:00 Paliperidone Palmitate (Invega Sustenna) 234 mg Q30D@0900 IM ; Start 09/24/18 at 09:00; Status Cancel Trazodone HCl (Desyrel) 50 mg QHSP PRN PO INSOMNIA Last administered on 09/17/18at 22:43; Start 09/09/18 at 14:30 Allergies Coded Allergies: Amoxicillin (Verified Allergy, Intermediate, Hives , 11/01/13) Sulfa Drugs (Verified Allergy, Mild, Rash, fever, vomiting, 11/01/13) Azithromycin (Verified Allergy, Unknown, 11/18/16) interacts with DUSTIN Ac DO Sep 22, 2018 11:56 am
[2018-09-22] MEDS: ACETAMINOPHEN TAB 650MG DOSE (2X325MG) PO PRN (12:38)
[2018-09-23] MEDS: chlorproMAZINE 25 MG TAB (Q0161) PO SCH ×4 (09:00→20:30)
[2018-09-23] MEDS: diphenhydrAMINE 12.5MG/5ML ELIXIR UDC PO SCH ×3 (09:00→20:32)
[2018-09-23] MEDS: **PENDING PPD ENTRY XX SCH (09:00)
[2018-09-23] MEDS: hydrOXYzine 50 MG TAB PO PRN ×2 (10:32→20:30)
[2018-09-23] MEDS: LITHIUM CARBONATE 300MG/5ML(8MEQ/5ML)ORAL SOLUTION UDC PO SCH ×2 (10:33→20:31)
[2018-09-23] MEDS: ACETAMINOPHEN TAB 650MG DOSE (2X325MG) PO PRN (11:32)
[2018-09-23 12:24] LABS: ALBUMIN 3.7 GM/DL (3.2-5.2); BILIRUBIN,DIRECT 0.1 MG/DL (0.0-0.2); BILIRUBIN,TOTAL 0.4 MG/DL (0.2-1.0); LITHIUM LEVEL 1.23 MEQ/L (0.60-1.20); TOTAL PROTEIN 6.8 GM/DL (6.4-8.2)
[2018-09-24] MEDS: chlorproMAZINE 25 MG TAB (Q0161) PO SCH ×4 (08:03→20:59)
[2018-09-24] MEDS: LITHIUM CARBONATE 300MG/5ML(8MEQ/5ML)ORAL SOLUTION UDC PO SCH (08:03)
[2018-09-24] MEDS: hydrOXYzine 50 MG TAB PO PRN ×2 (08:03→20:30)
[2018-09-24] MEDS: diphenhydrAMINE 12.5MG/5ML ELIXIR UDC PO SCH ×3 (08:04→21:00)
[2018-09-24] MEDS ORDERED: PALIPERIDONE PALMITATE 234 MG/1.5 ML INJ (INVEGA SUSTENNA)(J2426) IM SCH (09:00)
[2018-09-24] MEDS: **PENDING PPD ENTRY XX SCH (09:00)
--- NOTE | 2018-09-24 10:08 | MHIPNPDOC ---
[facility] Progress Note Progress Note DATE OF SERVICE: 09/24/18 HISTORY: Patient is a 28 -year-old , female, with a history of schizoaffective d/o just d/c [facility] last week after 1 month stay for wang with psychosis 09/02/18 who brought to ED yesterday by police under9.41 order after friend called police stating pt was cutting herself and threatening suicide. Pt ED record pt attempted to break into an appt and was then spotted walking down road with numerous bags, found outside storefront huddled in the the cold having no place to go. Per ED, when pt arrived she was floridly psychotic, bizarre, talking to self in room, calling staff numerous names, having flight of ideas, rapid speech, tangential, and easily distracted. Pt did except medications in ED when offered. Pt also spit water on the floor. Pt utox positive cannabis. [place] subtherapeutic at 0.20 when it was 0.97 upon d/c last week. Pt obviously noncompliant on her medication again and abusing substances. Pt seen today and appearing psychotic with fight of ideas, hyperverbal speech, and tangential thoughts. Delusional with pseudocyesis and stating she has undiagnosed epilepsy. Pt behaviorally reactive throwing water in med room. Agreeable to im zyprexa and ativan x1 when offered. Pt is a poor historian with poor ability to participate adequately with interview most likely due to wang/psychosis and medication noncompliance. History gathered from previous records. VITAL SIGNS: See below. NEW TEST RESULTS: lithium level 123 to high will hold evening dose and change to 900mg qhs starting 09/25/18. urine culture negative. CMP and CBC wnl. HIV and hep C and B screening negative. CK 192, liver profile wnl CURRENT MEDICATIONS: See below. MENTAL STATUS EXAMINATION: General Appearance: improved cleanliness, appears stated age, hospital scrubs/clothing Build: overweight Demeanor: less preoccupied, less fidgety, other (bizarre, impulsive, less manic) Eye Contact: fair Activity: in bed asking for 5 min more before she gets up Behavior: cooperative, impulsive, less hyperactive, less restless Speech: less rapid, pressured, disorganized, unable to make out at times due to rambling Mood: irritable, less elevated, hypomanic, other (bizarre, reactive) Affect: inappropriate, labile, disorganized at times Thought Process: tangential, loose, associative, flight of ideas, racing, aubree ailment Thought Content (Delusions): grandiose, bizarre, denies SI, HI, AVH , paranoia, delusions (somatic, states has "metal plates in body") Thought Content (Other): preoccupied, obsessional, ideas of reference, appears paranoid Thought Content (Aggressive): none reported Perception (Hallucinations): auditory, mumbling to self Perception (Other): none reported Cognition (Impairment of): attention/concentration, ability to abstract, unable to assess Cognition(Intelligence Est.): borderline Oriented: Awake, Alert, Oriented times three Insight: poor Judgment: Poor Psychosis: Associations, Abstract Thinking, Psychotic Perceptions DIAGNOSES: Schizoaffective d/o Cannabis use d/o ASSESSMENT: Pt was not coded last night. She was compliant with all her medication again yesterday. Encouraged to take oral meds each time due. Pt encouraged to get up this am which she did w/o redirection multiple times to get up out of bed. Still rambling nonsensically to no one in particular in the milieu at times. Continuing to awake pt every morning as shown beneficial in preventing agitation, psychosis, codes in afternoon and night as well as gives pt the ability to sleep at night. Pt is sleeping thru the night currently. Pt encouraged to stay awake all day again today to promote full sleep at night and reduce codes during the night. Pt appears less manic with pressured, disorganized speech but remains psychotic and reactive at times. Does deny pseudocyesis this admission. Pt remains psychotic, delusion, and impulsive. She is less agitated and not aggressive this am. Compliant on most medication but does require continually redirection to take them. Does take meds when I'm am there to make sure she takes them. Will check cpk and lithium as pt refused first lab orders on Friday or Friday. (states will do today) as pt has been getting a lot of thorazine recently for agitation and aggression. Pt also encouraged to have labs done as she's endorsing foot pain per nurse (possibly due to hard floors) and will have slippers brought in to pt by family and need CK level to make sure it's not elevated and causing muscle pain. Pt has agreed on admission to [facility]. This is the second time pt has had rapid readmission with severe wang and psychosis secondary to med noncompliance despite deaconate meds given prior to last d/c. Pt placed on 1:1 sitter still. Will have pts hands held each time administered medicine IM for now on. MANAGEMENT PLAN: Pending HIV screening. D/c oral haldol and start thorzaine 50mg qid and q6hr prn anxiety/agitation as haldol appears ineffective currently. Medications: zofran q4hr prn N/V haldol decanoate 100mg im given 09/22/18 thorazine 50mg qid lithium 900mg qhs starting 09/25/18 atarax 25mg q6hr prn anxiety trazodone 50mg qhs prn insomnia ativan 2mg q6hr prn anxiety agitation zyprexa zydis 5mg qam and 10mg qhs ZyPREXA ZYDIS 5 mg Q6HP PRN PO anxiety/agitation TIME SPENT: 30 minutes. Vital Signs Vital Signs Date Time Temp Pulse Resp B/P (MAP) Pulse Ox O2 Delivery O2 Flow Rate FiO2 09/22/18 06:44 98.0 66 12 122/62 (82) Laboratory Data 24H Labs Laboratory Tests 2 09/23/18 11:24: Aspartate Amino Transf (AST/SGOT) 20, Alanine Aminotransferase (ALT/SGPT) 32, Alkaline Phosphatase 82, Total Bilirubin 0.4, Direct Bilirubin 0.1, Total Creatine Kinase 172, Total Protein 6.8, Albumin 3.7, Albumin/Globulin Ratio 1.19, [place] Level 1.23H Current Medications Current Medications Acetaminophen (Tylenol Tab) 650 mg Q6HP PRN PO HEADACHE or DISCOMFORT Last admi nistered on 09/23/18at 11:32; Start 09/09/18 at 14:30 Al Hydrox/Mg Hydrox/Simethicone (Mylanta) 30 ml Q4HP PRN PO HEARTBURN/LAURA GESTION; Start 09/09/18 at 14:30 Cetylpyridinium Chloride (Cepacol) 1 yadi Q2HP PRN PO COUGH Last administered on 09/21/18at 21:24; Start 09/17/18 at 14:30 Chlorpromazine HCl (Thorazine) 25 mg TID PO Last administered on 09/10/18 09:26; Start 09/09/18 at 16:00; Stop 09/10/18 at 09:31; Status DC Chlorpromazine HCl (Thorazine) 50 mg Q6HP PRN PO AGITATION; Start 09/16/18 at 09:15 Chlorpromazine HCl (Thorazine) 50 mg QID PO Last administered on 09/24/18 08:03; Start 09/16/18 at 13:00; Status Future hold Chlorpromazine HCl (Thorazine) 50 mg STAT STAT IM Last administered on 09/20/18 22:06; Start 09/20/18 at 21:51; Stop 09/20/18 at 21:53; Status DC Chlorpromazine HCl (Thorazine) 50 mg STAT STAT IM Last administered on 09/15/18 20:34; Start 09/15/18 at 20:23; Stop 09/15/18 at 20:27; Status DC Chlorpromazine HCl (Thorazine) 100 mg STAT STAT IM Last administered on 09/16/18 18:48; Start 09/16/18 at 18:21; Stop 09/16/18 at 18:24; Status DC Chlorpromazine HCl (Thorazine) 100 mg STAT STAT IM Last administered on 09/16/18 20:31; Start 09/16/18 at 18:58; Stop 09/16/18 at 19:00; Status DC Clonazepam (KlonoPIN) 0.5 mg TID PO Last administered on 09/15/18 21:34; Start 09/09/18 at 16:00; Stop 09/16/18 at 13:10; Status DC Diphenhydramine HCl (Benadryl Elixir) 50 mg Q6HP PRN PO ANXIETY Last administered on 09/20/18 13:41; Start 09/17/18 at 10:45 Diphenhydramine HCl (Benadryl Elixir) 50 mg TID PO Last administered on 09/24/18 08:04; Start 09/17/18 at 09:00 Diphenhydramine HCl (Benadryl) 50 mg STAT STAT IM Last administered on 09/20/18 22:06; Start 09/20/18 at 21:51; Stop 09/20/18 at 21:53; Status DC Diphenhydramine HCl (Benadryl) 50 mg TID PO Last administered on 09/10/18 09:26; Start 09/09/18 at 16:00; Stop 09/11/18 at 15:28; Status DC Diphenhydramine HCl (Benadryl) 100 mg STAT STAT IM Last administered on 09/11/18at 21:54; Start 09/11/18 at 21:09; Stop 09/11/18 at 21:11; Status DC Haloperidol (Haldol) 5 mg TID PRN PO ANXIETY/AGITATION Last administered on 09/12/18 19:03; Start 09/09/18 at 14:30; Stop 09/16/18 at 09:15; Status DC Haloperidol (Haldol) 10 mg QID PO Last administered on 09/15/18 21:34; Start 09/10/18 at 09:00; Stop 09/16/18 at 09:15; Status DC Haloperidol (Haldol) 10 mg STAT STAT IM Last administered on 09/11/18at 16:08; Start 09/11/18 at 15:55; Stop 09/11/18 at 15:57; Status DC Haloperidol (Haldol) 10 mg STAT STAT PO ; Start 09/11/18 at 15:47; Stop 09/11/18 at 15:48; Status DC Haloperidol Decanoate (Haldol Decanoate) 100 mg Q28D IM ; Start 09/25/18 at 09:00 Hydroxyzine HCl (Atarax) 50 mg TIDP PRN PO ANXIETY Last administered on 09/24/18at 08:03; Start 09/09/18 at 14:30 [place] Carbonate (Eskalith Oral Solution) 600 mg BID PO Last administered on 09/24/18 08:03; Start 09/10/18 at 21:00 [place] Carbonate ([place] Carbonate) 600 mg BID PO Last administered on 09/10/18at 08:00; Start 09/09/18 at 21:00; Stop 09/10/18 at 09:31; Status DC Lorazepam (Ativan) 1 mg STAT STAT IM Last administered on 09/15/18 20:34; Start 09/15/18 at 20:23; Stop 09/15/18 at 20:27; Status DC Lorazepam (Ativan) 2 mg STAT STAT IM Last administered on 09/11/18at 12:32; Start 09/11/18 at 12:19; Stop 09/11/18 at 12:27; Status DC Lorazepam (Ativan) 2 mg STAT STAT IM Last administered on 09/11/18at 21:53; Start 09/11/18 at 21:09; Stop 09/11/18 at 21:11; Status DC Lorazepam (Ativan) 2 mg STAT STAT PO Last administered on 09/15/18at 02:25; Start 09/15/18 at 02:25; Stop 09/15/18 at 02:26; Status DC Magnesium Hydroxide (Milk Of Magnesia) 30 ml DAILYPRN PRN PO CONSTIPATION; Start 09/09/18 at 14:30 Miscellaneous (Unresolved Clarification Entry) SEE LABEL COMMENTS DAILY XX ; Start 09/15/18 at 09:00; Stop 09/16/18 at 06:38; Status DC Miscellaneous (Unresolved Clarification Entry) SEE LABEL COMMENTS DAILY XX ; Start 09/16/18 at 09:00; Stop 09/16/18 at 09:25; Status DC Non-Formulary Medication ( See Comment Field Below ) SEE COMMENTS SECTION 1T@10 XX ; Start 09/16/18 at 10:00; Stop 09/16/18 at 10:00; Status DC Non-Formulary Medication ( See Comment Field Below ) SEE LABEL COMMENTS DAILY XX ; Start 09/14/18 at 09:00 Olanzapine (ZyPREXA) 5 mg Q4HP PRN PO AGITATION; Start 09/09/18 at 14:30 Olanzapine (Zyprexa Intramuscular) 10 mg STAT STAT IM Last administered on 09/11/18at 12:32; Start 09/11/18 at 12:19; Stop 09/11/18 at 12:21; Status DC Olanzapine (Zyprexa Intramuscular) 10 mg STAT STAT IM Last administered on 09/11/18at 21:55; Start 09/11/18 at 21:09; Stop 09/11/18 at 21:11; Status DC Olanzapine (Zyprexa Intramuscular) 10 mg STAT STAT IM Last administered on 09/20/18at 19:00; Start 09/20/18 at 18:47; Stop 09/20/18 at 18:49; Status DC Ondansetron HCl (Zofran Odt) 4 mg Q6HP PRN PO NAUSEA OR VOMITING; Start 09/13/18 at 12:00 Paliperidone Palmitate (Invega Sustenna) 234 mg Q30D@0900 IM ; Start 09/24/18 at 09:00; Status Cancel Trazodone HCl (Desyrel) 50 mg QHSP PRN PO INSOMNIA Last administered on at 22:43; Start 09/09/18 at 14:30 Allergies Coded Allergies: Amoxicillin (Verified Allergy, Intermediate, Hives , 11/01/13) Sulfa Drugs (Verified Allergy, Mild, Rash, fever, vomiting, 11/01/13) Azithromycin (Verified Allergy, Unknown, 11/18/16) interacts with DUSTIN Ac DO Sep 24, 2018 10:08 am
--- NOTE | 2018-09-24 10:13 | MHPR ---
General Date: Sep 12, 2018 Time: 00:30 Post-Restraint Evaluation THE OUTCOME OF THE RESTRAINT: reduction in harmful behavior toward staff and self, reduction in agitation/aggression EFFECTIVENESS OF THE RESTRAINT: Mechanical and/or chemical: both Positive ANY EVIDENCE THAT THE PATIENT WAS AFFECTED EMOTIONALLY: no ANY NEED FOR COUNSELING/ASSISTANCE: no CHANGES IN TREATMENT PLAN: no RECOMMENDATIONS FOR FUTURE INCIDENTS: redirection, prn medication DUSTIN DINH DO Sep 24, 2018 10:13 am
[2018-09-24 18:00] VITALS: BP 130/87
[2018-09-25] MEDS: **PENDING PPD ENTRY XX SCH (09:00)
[2018-09-25] MEDS ORDERED: HALOPERIDOL DECANOATE 100 MG/ML VIAL (J1631) IM SCH (09:00)
[2018-09-25] MEDS: chlorproMAZINE 25 MG TAB (Q0161) PO SCH ×4 (09:43→20:24)
[2018-09-25] MEDS: diphenhydrAMINE 12.5MG/5ML ELIXIR UDC PO SCH ×3 (09:44→20:24)
--- NOTE | 2018-09-25 10:08 | MHIPNPDOC ---
[facility] Progress Note Progress Note DATE OF SERVICE: 09/25/18 HISTORY: Patient is a 28 -year-old , female, with a history of schizoaffective d/o just d/c [facility] last week after 1 month stay for wang with psychosis 09/02/18 who brought to ED yesterday by police under9.41 order after friend called police stating pt was cutting herself and threatening suicide. Pt ED record pt attempted to break into an appt and was then spotted walking down road with numerous bags, found outside storefront huddled in the the cold having no place to go. Per ED, when pt arrived she was floridly psychotic, bizarre, talking to self in room, calling staff numerous names, having flight of ideas, rapid speech, tangential, and easily distracted. Pt did except medications in ED when offered. Pt also spit water on the floor. Pt utox positive cannabis. [place] subtherapeutic at 0.20 when it was 0.97 upon d/c last week. Pt obviously noncompliant on her medication again and abusing substances. Pt seen today and appearing psychotic with fight of ideas, hyperverbal speech, and tangential thoughts. Delusional with pseudocyesis and stating she has undiagnosed epilepsy. Pt behaviorally reactive throwing water in med room. Agreeable to im zyprexa and ativan x1 when offered. Pt is a poor historian with poor ability to participate adequately with interview most likely due to wang/psychosis and medication noncompliance. History gathered from previous records. VITAL SIGNS: See below. NEW TEST RESULTS: lithium level 123 to high will hold evening dose and change to 900mg qhs starting 09/25/18. urine culture negative. CMP and CBC wnl. HIV and hep C and B screening negative. CK 192, liver profile wnl CURRENT MEDICATIONS: See below. MENTAL STATUS EXAMINATION: General Appearance: improved cleanliness, appears stated age, hospital scrubs/clothing Build: overweight Demeanor: less preoccupied, less fidgety, other (bizarre, impulsive, less manic) Eye Contact: fair Activity: in bed asking for 10 min more before she gets up Behavior: cooperative, less impulsive, less hyperactive, less restless Speech: more normal and regulate rate, with improved rambling/mumbling Mood: calm and cooperative, more euthymic, other (less reactive) Affect: more euthymic and calm Thought Process: improved tangential, loose, associative, flight of ideas, racing, derailment Thought Content (Delusions): improved grandiose, bizarre, denies SI, HI, AVH , paranoia, delusions Thought Content (Other): improved preoccupied, obsessional, ideas of reference, appears paranoid Thought Content (Aggressive): none reported Perception (Hallucinations): auditory, mumbling to self Perception (Other): none reported Cognition (Impairment of): improved attention/concentration, ability to abstract, unable to assess Cognition(Intelligence Est.): borderline Oriented: Awake, Alert, Oriented times three Insight: poor Judgment: Poor Psychosis: improved Associations, Abstract Thinking, Psychotic Perceptions DIAGNOSES: Schizoaffective d/o Cannabis use d/o ASSESSMENT: Pt was not coded last night. She was compliant with all her medication again yesterday. Encouraged to take oral meds each time due. Pt encouraged to get up this am which she did after asking for 10min more. Improved rambling nonsensically. Continuing to awake pt every morning as shown beneficial in preventing agitation, psychosis, codes in afternoon and night as well as gives pt the ability to sleep at night. Pt is sleeping thru the night currently. Pt encouraged to stay awake all day again today to promote full sleep at night and reduce codes during the night. Pt appears more euthymic, less psychotic, and less reactive. Pt has improved psychosis, delusion, and impulsivity. She is more calm and cooperative. Compliant on most medication but does require continually redirection to take them. Pt [place] agreed [place] [facility] [place] been accepted there just waiting for a bed there as they are currently full. This is the second time pt has had rapid readmission with severe wang and psychosis secondary to med noncompliance despite deaconate meds given prior to last d/c. Pt placed on 1:1 sitter still. Will have pts hands held each time administered medicine IM for now on. [place] [facility] [place] Medications: zofran q4hr prn N/V haldol decanoate 100mg im given 09/22/18 thorazine 50mg qid lithium 900mg qhs starting 09/25/18 atarax 25mg q6hr prn anxiety trazodone 50mg qhs prn insomnia ativan 2mg q6hr prn anxiety agitation zyprexa zydis 5mg qam and 10mg qhs ZyPREXA ZYDIS 5 mg Q6HP PRN PO anxiety/agitation TIME SPENT: 30 minutes. Vital Signs Vital Signs Date Time Temp Pulse Resp B/P (MAP) Pulse Ox O2 Delivery O2 Flow Rate FiO2 09/24/18 18:00 98.8 97 16 130/87 (101) Current Medications Current Medications Acetaminophen (Tylenol Tab) 650 mg Q6HP PRN PO HEADACHE or DISCOMFORT Last administered on 09/23/18at 11:32; Start 09/09/18 at 14:30 Al Hydrox/Mg Hydrox/Simethicone (Mylanta) 30 ml Q4HP PRN PO HEARTBURN/INDIGESTION; Start 09/09/18 at 14:30 Cetylpyridinium Chloride (Cepacol) 1 yadi Q2HP PRN PO COUGH Last administered on 09/21/18at 21:24; Start 09/17/18 at 14:30 Chlorpromazine HCl (Thorazine) 25 mg TID PO Last administered on 09/10/18at 09:26; Start 09/09/18 at 16:00; Stop 09/10/18 at 09:31; Status DC Chlorpromazine HCl (Thorazine) 50 mg Q6HP PRN PO AGITATION; Start 09/16/18 at 09:15 Chlorpromazine HCl (Thorazine) 50 mg QID PO Last administered on 09/24/18at 20:59; Start 09/16/18 at 13:00; Status Future hold Chlorpromazine HCl (Thorazine) 50 mg STAT STAT IM Last administered on 09/20/18at 22:06; Start 09/20/18 at 21:51; Stop 09/20/18 at 21:53; Status DC Chlorpromazine HCl (Thorazine) 50 mg STAT STAT IM Last administered on 09/15/18at 20:34; Start 09/15/18 at 20:23; Stop 09/15/18 at 20:27; Status DC Chlorpromazine HCl (Thorazine) 100 mg STAT STAT IM Last administered on 09/16/18at 18:48; Start 09/16/18 at 18:21; Stop 09/16/18 at 18:24; Status DC Chlorpromazine HCl (Thorazine) 100 mg STAT STAT IM Last administered on 09/16/18 20:31; Start 09/16/18 at 18:58; Stop 09/16/18 at 19:00; Status DC Clonazepam (KlonoPIN) 0.5 mg TID PO Last administered on 09/15/18 21:34; Start 09/09/18 at 16:00; Stop 09/16/18 at 13:10; Status DC Diphenhydramine HCl (Benadryl Elixir) 50 mg Q6HP PRN PO ANXIETY Last administered on 09/20/18 13:41; Start 09/17/18 at 10:45 Diphenhydramine HCl (Benadryl Elixir) 50 mg TID PO Last administered on 09/24/18 21:00; Start 09/17/18 at 09:00 Diphenhydramine HCl (Benadryl) 50 mg STAT STAT IM Last administered on 09/20/18 22:06; Start 09/20/18 at 21:51; Stop 09/20/18 at 21:53; Status DC Diphenhydramine HCl (Benadryl) 50 mg TID PO Last administered on 09/10/18at 09:26; Start 09/09/18 at 16:00; Stop 09/11/18 at 15:28; Status DC Diphenhydramine HCl (Benadryl) 100 mg STAT STAT IM Last administered on 09/11/18 21:54; Start 09/11/18 at 21:09; Stop 09/11/18 at 21:11; Status DC Haloperidol (Haldol) 5 mg TID PRN PO ANXIETY/AGITATION Last administered on 09/12/18 19:03; Start 09/09/18 at 14:30; Stop 09/16/18 at 09:15; Status DC Haloperidol (Haldol) 10 mg QID PO Last administered on 09/15/18 21:34; Start 09/10/18 at 09:00; Stop 09/16/18 at 09:15; Status DC Haloperidol (Haldol) 10 mg STAT STAT IM Last administered on 09/11/18 16:08; Start 09/11/18 at 15:55; Stop 09/11/18 at 15:57; Status DC Haloperidol (Haldol) 10 mg STAT STAT PO ; Start 09/11/18 at 15:47; Stop 09/11/18 at 15:48; Status DC Haloperidol Decanoate (Haldol Decanoate) 100 mg Q28D IM ; Start 09/25/18 at 09:00 Hydroxyzine HCl (Atarax) 50 mg TIDP PRN PO ANXIETY Last administered on 09/24/18at 20:30; Start 09/09/18 at 14:30 [place] Carbonate (Eskalith Oral Solution) 600 mg BID PO Last administered on 09/24/18at 08:03; Start 09/10/18 at 21:00; Stop 09/24/18 at 10:09; Status DC [place] Carbonate (Eskalith Oral Solution) 900 mg QHS PO ; Start 09/25/18 at 21:00 [place] Carbonate ([place] Carbonate) 600 mg BID PO Last administered on 09/10/18at 08:00; Start 09/09/18 at 21:00; Stop 09/10/18 at 09:31; Status DC Lorazepam (Ativan) 1 mg STAT STAT IM Last administered on 09/15/18at 20:34; Start 09/15/18 at 20:23; Stop 09/15/18 at 20:27; Status DC Lorazepam (Ativan) 2 mg STAT STAT IM Last administered on 09/11/18at 12:32; Start 09/11/18 at 12:19; Stop 09/11/18 at 12:27; Status DC Lorazepam (Ativan) 2 mg STAT STAT IM Last administered on 09/11/18at 21:53; Start 09/11/18 at 21:09; Stop 09/11/18 at 21:11; Status DC Lorazepam (Ativan) 2 mg STAT STAT PO Last administered on 09/15/18at 02:25; Start 09/15/18 at 02:25; Stop 09/15/18 at 02:26; Status DC Magnesium Hydroxide (Milk Of Magnesia) 30 ml DAILYPRN PRN PO CONSTIPATION; Start 09/09/18 at 14:30 Miscellaneous (Unresolved Clarification Entry) SEE LABEL COMMENTS DAILY XX ; Start 09/15/18 at 09:00; Stop 09/16/18 at 06:38; Status DC Miscellaneous (Unresolved Clarification Entry) SEE LABEL COMMENTS DAILY XX ; Start 09/16/18 at 09:00; Stop 09/16/18 at 09:25; Status DC Non-Formulary Medication ( See Comment Field Below ) SEE COMMENTS SECTION 1T@10 XX ; Start 09/16/18 at 10:00; Stop 09/16/18 at 10:00; Status DC Non-Formulary Medication ( See Comment Field Below ) SEE LABEL COMMENTS D AILY XX ; Start 09/14/18 at 09:00 Olanzapine (ZyPREXA) 5 mg Q4HP PRN PO AGITATION; Start 09/09/18 at 14:30 Olanzapine (Zyprexa Intramuscular) 10 mg STAT STAT IM Last administered on 09/11/18at 12:32; Start 09/11/18 at 12:19; Stop 09/11/18 at 12:21; Status DC Olanzapine (Zyprexa Intramuscular) 10 mg STAT STAT IM Last administered on 09/11/18at 21:55; Start 09/11/18 at 21:09; Stop 09/11/18 at 21:11; Status DC Olanzapine (Zyprexa Intramuscular) 10 mg STAT STAT IM Last administered on 09/20/18at 19:00; Start 09/20/18 at 18:47; Stop 09/20/18 at 18:49; Status DC Ondansetron HCl (Zofran Odt) 4 mg Q6HP PRN PO NAUSEA OR VOMITING; Start 09/13/18 at 12:00 Paliperidone Palmitate (Invega Sustenna) 234 mg Q30D@0900 IM ; Start 09/24/18 at 09:00; Status Cancel Trazodone HCl (Desyrel) 50 mg QHSP PRN PO INSOMNIA Last administered on 09/17/18at 22:43; Start 09/09/18 at 14:30 Allergies Coded Allergies: Amoxicillin (Verified Allergy, Intermediate, Hives , 11/01/13) Sulfa Drugs (Verified Allergy, Mild, Rash, fever, vomiting, 11/01/13) Azithromycin (Verified Allergy, Unknown, 11/18/16) interacts with DUSTIN Ac DO Sep 25, 2018 9:15 am
[2018-09-25] MEDS: ACETAMINOPHEN TAB 650MG DOSE (2X325MG) PO PRN (13:55)
[2018-09-25] MEDS: hydrOXYzine 50 MG TAB PO PRN (16:54)
[2018-09-25] MEDS: LITHIUM CARBONATE 300MG/5ML(8MEQ/5ML)ORAL SOLUTION UDC PO SCH (20:24)
[2018-09-26] MEDS: diphenhydrAMINE 12.5MG/5ML ELIXIR UDC PO SCH ×3 (09:00→21:37)
[2018-09-26] MEDS: **PENDING PPD ENTRY XX SCH (09:00)
[2018-09-26] MEDS: chlorproMAZINE 25 MG TAB (Q0161) PO SCH ×4 (10:56→21:37)
[2018-09-26] MEDS: traZODone 50 MG TAB PO PRN (21:37)
[2018-09-26] MEDS: LITHIUM CARBONATE 300MG/5ML(8MEQ/5ML)ORAL SOLUTION UDC PO SCH (21:40)
[2018-09-27] MEDS: diphenhydrAMINE 12.5MG/5ML ELIXIR UDC PO SCH ×3 (09:00→21:00)
[2018-09-27] MEDS: **PENDING PPD ENTRY XX SCH (09:00)
[2018-09-27] MEDS: chlorproMAZINE 25 MG TAB (Q0161) PO SCH ×4 (09:13→21:00)
[2018-09-27] MEDS: ACETAMINOPHEN TAB 650MG DOSE (2X325MG) PO PRN (12:39)
[2018-09-27] MEDS: LITHIUM CARBONATE 300MG/5ML(8MEQ/5ML)ORAL SOLUTION UDC PO SCH (21:00)
[2018-09-28] MEDS: **PENDING PPD ENTRY XX SCH (09:00)
[2018-09-28] MEDS: diphenhydrAMINE 12.5MG/5ML ELIXIR UDC PO SCH ×3 (09:00→20:05)
[2018-09-28] MEDS: chlorproMAZINE 25 MG TAB (Q0161) PO SCH ×4 (09:26→20:03)
--- NOTE | 2018-09-28 10:48 | MHIPNPDOC ---
[facility] Progress Note Progress Note DATE OF SERVICE: 09/28/18 HISTORY: Patient is a 28 -year-old , female, with a history of schizoaffective d/o just d/c [facility] last week after 1 month stay for wang with psychosis 09/02/18 who brought to ED yesterday by police under9.41 order after friend called police stating pt was cutting herself and threatening suicide. Pt ED record pt attempted to break into an appt and was then spotted walking down road with numerous bags, found outside storefront huddled in the the cold having no place to go. Per ED, when pt arrived she was floridly psychotic, bizarre, talking to self in room, calling staff numerous names, having flight of ideas, rapid speech, tangential, and easily distracted. Pt did except medications in ED when offered. Pt also spit water on the floor. Pt utox positive cannabis. [place] subtherapeutic at 0.20 when it was 0.97 upon d/c last week. Pt obviously noncompliant on her medication again and abusing substances. Pt seen today and appearing psychotic with fight of ideas, hyperverbal speech, and tangential thoughts. Delusional with pseudocyesis and stating she has undiagnosed epilepsy. Pt behaviorally reactive throwing water in med room. Agreeable to im zyprexa and ativan x1 when offered. Pt is a poor historian with poor ability to participate adequately with interview most likely due to wang/psychosis and medication noncompliance. History gathered from previous records. VITAL SIGNS: See below. NEW TEST RESULTS: lithium level 123 to high will hold evening dose and change to 900mg qhs starting 09/25/18. urine culture negative. CMP and CBC wnl. HIV and hep C and B screening negative. CK 192, liver profile wnl CURRENT MEDICATIONS: See below. MENTAL STATUS EXAMINATION: General Appearance: improved cleanliness, appears stated age, hospital scrubs/clothing Build: overweight Demeanor: cooperative and calm Eye Contact: fair Activity: in bed asking for 10 min more before she gets up Behavior: cooperative, less impulsive, less hyperactive, less restless Speech: more normal and regulate rate, no longer rambling/mumbling Mood: calm and cooperative, more euthymic, other (less reactive) Affect: more euthymic and calm Thought Process: improved tangential, loose, associative, flight of ideas, racing, derailment Thought Content (Delusions): improving grandiose, bizarre, denies SI, HI, AVH , denies paranoia, denies delusions Thought Content (Other): improved preoccupation, denies paranoid Thought Content (Aggressive): none reported Perception (Hallucinations): improved auditory, no longer mumbling to self Perception (Other): none reported Cognition (Impairment of): improved attention/concentration, ability to abstract, unable to assess Cognition(Intelligence Est.): borderline Oriented: Awake, Alert, Oriented times three Insight: poor Judgment: Poor Psychosis: improved Associations, Abstract Thinking, Psychotic Perceptions DIAGNOSES: Schizoaffective d/o Cannabis use d/o ASSESSMENT: Pt was not coded last night. She was compliant with all her medication again except benadryl last night. More cooperative and able to stay focused on taking meds per med nurse. Encouraged to take oral meds each time due. Pt encouraged to get up this am which she did after asking for 10min more. Continued improved rambling nonsensically. Continuing to awake pt every morning as shown beneficial in preventing agitation, psychosis, codes in afternoon and night as well as gives pt the ability to sleep at night. Pt is sleeping thru the night currently. Pt encouraged to stay awake all day again today to promote full sleep at night and reduce codes during the night. Pt appears more euthymic, less psychotic, and less reactive. Pt has improved psychosis, delusion, and impulsivity. She is more calm and cooperative. Compliant on most medication but does require continually redirection to take them. Pt has agreed on [place] [facility] [place] been accepted there just waiting for a bed there as they are currently full. This is the second time pt has had rapid readmission with severe wang and psychosis secondary to med noncompliance despite deaconate meds given prior to last d/c. Pt placed on 1:1 sitter still. Will have pts hands held each time administered medicine IM for now on. MANAG[place] PLAN[place] [facility] [place] Medications: zofran q4hr prn N/V haldol decanoate 100mg im given 09/22/18 thorazine 50mg qid lithium 900mg qhs starting 09/25/18 atarax 25mg q6hr prn anxiety trazodone 50mg qhs prn insomnia ativan 2mg q6hr prn anxiety agitation zyprexa zydis 5mg qam and 10mg qhs ZyPREXA ZYDIS 5 mg Q6HP PRN PO anxiety/agitation TIME SPENT: 30 minutes. Vital Signs Vital Signs Date Time Temp Pulse Resp B/P (MAP) Pulse Ox O2 Delivery O2 Flow Rate FiO2 09/24/18 18:00 98.8 97 16 130/87 (101) Current Medications Current Medications Acetaminophen (Tylenol Tab) 650 mg Q6HP PRN PO HEADACHE or DISCOMFORT Last administered on 09/27/18at 12:39; Start 09/09/18 at 14:30 Al Hydrox/Mg Hydrox/Simethicone (Mylanta) 30 ml Q4HP PRN PO HEARTBURN/INDIGESTION; Start 09/09/18 at 14:30 Cetylpyridinium Chloride (Cepacol) 1 yadi Q2HP PRN PO COUGH Last administered on 09/21/18at 21:24; Start 09/17/18 at 14:30 Chlorpromazine HCl (Thorazine) 25 mg TID PO Last administered on 09/10/18at 09:26; Start 09/09/18 at 16:00; Stop 09/10/18 at 09:31; Status DC Chlorpromazine HCl (Thorazine) 50 mg Q6HP PRN PO AGITATION; Start 09/16/18 at 09:15 Chlorpromazine HCl (Thorazine) 50 mg QID PO Last administered on 09/28/18at 09:26; Start 09/16/18 at 13:00; Status Future hold Chlorpromazine HCl (Thorazine) 50 mg STAT STAT IM Last administered on 09/20/18at 22:06; Start 09/20/18 at 21:51; Stop 09/20/18 at 21:53; Status DC Chlorpromazine HCl (Thorazine) 50 mg STAT STAT IM Last administered on 09/15/18at 20:34; Start 09/15/18 at 20:23; Stop 09/15/18 at 20:27; Status DC Chlorpromazine HCl (Thorazine) 100 mg STAT STAT IM Last administered on 09/16/18at 18:48; Start 09/16/18 at 18:21; Stop 09/16/18 at 18:24; Status DC Chlorpromazine HCl (Thorazine) 100 mg STAT STAT IM Last administered on 09/16 20:31; Start 09/16/18 at 18:58; Stop 09/16/18 at 19:00; Status DC Clonazepam (KlonoPIN) 0.5 mg TID PO Last administered on 09/15/18 21:34; Start 09/09/18 at 16:00; Stop 09/16/18 at 13:10; Status DC Diphenhydramine HCl (Benadryl Elixir) 50 mg Q6HP PRN PO ANXIETY Last administered on 09/20/18at 13:41; Start 09/17/18 at 10:45 Diphenhydramine HCl (Benadryl Elixir) 50 mg TID PO Last administered on 09/26/18 21:37; Start 09/17/18 at 09:00 Diphenhydramine HCl (Benadryl) 50 mg STAT STAT IM Last administered on 09/20/18 22:06; Start 09/20/18 at 21:51; Stop 09/20/18 at 21:53; Status DC Diphenhydramine HCl (Benadryl) 50 mg TID PO Last administered on 09/10/18at 09:26; Start 09/09/18 at 16:00; Stop 09/11/18 at 15:28; Status DC Diphenhydramine HCl (Benadryl) 100 mg STAT STAT IM Last administered on 09/11/18at 21:54; Start 09/11/18 at 21:09; Stop 09/11/18 at 21:11; Status DC Haloperidol (Haldol) 5 mg TID PRN PO ANXIETY/AGITATION Last administered on 09/12/18 19:03; Start 09/09/18 at 14:30; Stop 09/16/18 at 09:15; Status DC Haloperidol (Haldol) 10 mg QID PO Last administered on 09/15/18 21:34; Start 09/10/18 at 09:00; Stop 09/16/18 at 09:15; Status DC Haloperidol (Haldol) 10 mg STAT STAT IM Last administered on 09/11/18 16:08; Start 09/11/18 at 15:55; Stop 09/11/18 at 15:57; Status DC Haloperidol (Haldol) 10 mg STAT STAT PO ; Start 09/11/18 at 15:47; Stop 09/11/18 at 15:48; Status DC Haloperidol Decanoate (Haldol Decanoate) 100 mg Q28D IM Last administered on 09/25/18at 10:05; Start 09/25/18 at 09:00 Hydroxyzine HCl (Atarax) 50 mg TIDP PRN PO ANXIETY Last administered on 09/25/18 16:54; Start 09/09/18 at 14:30 [place] Carbonate (Eskalith Oral Solution) 600 mg BID PO Last administered on 09/24/18at 08:03; Start 09/10/18 at 21:00; Stop 09/24/18 at 10:09; Status DC [place] Carbonate (Eskalith Oral Solution) 900 mg QHS PO Last administered on 09/26/18at 21:40; Start 09/25/18 at 21:00 [place] Carbonate ([place] Carbonate) 600 mg BID PO Last administered on 09/10/18at 08:00; Start 09/09/18 at 21:00; Stop 09/10/18 at 09:31; Status DC Lorazepam (Ativan) 1 mg STAT STAT IM Last administered on 09/15/18at 20:34; Start 09/15/18 at 20:23; Stop 09/15/18 at 20:27; Status DC Lorazepam (Ativan) 2 mg STAT STAT IM Last administered on 09/11/18at 12:32; Start 09/11/18 at 12:19; Stop 09/11/18 at 12:27; Status DC Lorazepam (Ativan) 2 mg STAT STAT IM Last administered on 09/11/18at 21:53; Start 09/11/18 at 21:09; Stop 09/11/18 at 21:11; Status DC Lorazepam (Ativan) 2 mg STAT STAT PO Last administered on 09/15/18at 02:25; Start 09/15/18 at 02:25; Stop 09/15/18 at 02:26; Status DC Magnesium Hydroxide (Milk Of Magnesia) 30 ml DAILYPRN PRN PO CONSTIPATION; Start 09/09/18 at 14:30 Miscellaneous (Unresolved Clarification Entry) SEE LABEL COMMENTS DAILY XX ; Start 09/15/18 at 09:00; Stop 09/16/18 at 06:38; Status DC Miscellaneous (Unresolved Clarification Entry) SEE LABEL COMMENTS DAILY XX ; Start 09/16/18 at 09:00; Stop 09/16/18 at 09:25; Status DC Non-Formulary Medication ( See Comment Field Below ) SEE COMMENTS SECTION 1T@10 XX ; Start 09/16/18 at 10:00; Stop 09/16/18 at 10:00; Status DC Non-Formulary Medication ( See Comment Field Below ) SEE LABEL COMMENTS DAILY XX ; Start 09/14/18 at 09:00 Olanzapine (ZyPREXA) 5 mg Q4HP PRN PO AGITATION; Start 09/09/18 at 14:30 Olanzapine (Zyprexa Intramuscular) 10 mg STAT STAT IM Last administered on 09/11/18at 12:32; Start 09/11/18 at 12:19; Stop 09/11/18 at 12:21; Status DC Olanzapine (Zyprexa Intramuscular) 10 mg STAT STAT IM Last administered on 09/11/18at 21:55; Start 09/11/18 at 21:09; Stop 09/11/18 at 21:11; Status DC Olanzapine (Zyprexa Intramuscular) 10 mg STAT STAT IM Last administered on 09/20/18at 19:00; Start 09/20/18 at 18:47; Stop 09/20/18 at 18:49; Status DC Ondansetron HCl (Zofran Odt) 4 mg Q6HP PRN PO NAUSEA OR VOMITING; Start 09/13/18 at 12:00 Paliperidone Palmitate (Invega Sustenna) 234 mg Q30D@0900 IM ; Start 09/24/18 at 09:00; Status Cancel Trazodone HCl (Desyrel) 50 mg QHSP PRN PO INSOMNIA Last administered on 09/26/18at 21:37; Start 09/09/18 at 14:30 Allergies Coded Allergies: Amoxicillin (Verified Allergy, Intermediate, Hives , 11/01/13) Sulfa Drugs (Verified Allergy, Mild, Rash, fever, vomiting, 11/01/13) Azithromycin (Verified Allergy, Unknown, 11/18/16) interacts with DUSTIN Ac DO Sep 28, 2018 10:48 am
[2018-09-28] MEDS: LITHIUM CARBONATE 300MG/5ML(8MEQ/5ML)ORAL SOLUTION UDC PO SCH (20:03)
[2018-09-29 08:10] LABS: LITHIUM LEVEL 0.65 MEQ/L (0.60-1.20)
[2018-09-29] MEDS: chlorproMAZINE 25 MG TAB (Q0161) PO SCH ×4 (08:46→21:44)
[2018-09-29] MEDS: **PENDING PPD ENTRY XX SCH (08:46)
[2018-09-29] MEDS: diphenhydrAMINE 12.5MG/5ML ELIXIR UDC PO SCH (08:46)
--- NOTE | 2018-09-29 09:22 | MHIPNPDOC ---
[facility] Progress Note Progress Note DATE OF SERVICE: 09/29/18 HISTORY: Patient is a 28 -year-old , female, with a history of schizoaffective d/o just d/c [facility] last week after 1 month stay for wang with psychosis 09/02/18 who brought to ED yesterday by police under9.41 order after friend called police stating pt was cutting herself and threatening suicide. Pt ED record pt attempted to break into an appt and was then spotted walking down road with numerous bags, found outside storefront huddled in the the cold having no place to go. Per ED, when pt arrived she was floridly psychotic, bizarre, talking to self in room, calling staff numerous names, having flight of ideas, rapid speech, tangential, and easily distracted. Pt did except medications in ED when offered. Pt also spit water on the floor. Pt utox positive cannabis. [place] subtherapeutic at 0.20 when it was 0.97 upon d/c last week. Pt obviously noncompliant on her medication again and abusing substances. Pt seen today and appearing psychotic with fight of ideas, hyperverbal speech, and tangential thoughts. Delusional with pseudocyesis and stating she has undiagnosed epilepsy. Pt behaviorally reactive throwing water in med room. Agreeable to im zyprexa and ativan x1 when offered. Pt is a poor historian with poor ability to participate adequately with interview most likely due to wang/psychosis and medication noncompliance. History gathered from previous records. VITAL SIGNS: See below. NEW TEST RESULTS: lithium level 0.65 low will resume 600mg bid. urine culture negative. CMP and CBC wnl. HIV and hep C and B screening negative. CK 42, liver profile wnl CURRENT MEDICATIONS: See below. MENTAL STATUS EXAMINATION: General Appearance: clean, appears stated age, hospital scrubs/clothing Build: overweight Demeanor: cooperative and calm Eye Contact: good Activity: calm, cooperative Behavior: cooperative, less impulsive, less hyperactive, less restless Speech: more normal and regulate rate, no longer rambling/mumbling Mood: calm and cooperative, more euthymic, other (less reactive) Affect: more euthymic and calm Thought Process: improved tangential, loose, associative, flight of ideas, racing, derailment Thought Content (Delusions): improving grandiose, bizarre, denies SI, HI, AVH , denies paranoia, denies delusions Thought Content (Other): improved preoccupation, denies paranoid Thought Content (Aggressive): none reported Perception (Hallucinations): improved auditory, no longer mumbling to self Perception (Other): none reported Cognition (Impairment of): improved attention/concentration, ability to abstract, unable to assess Cognition(Intelligence Est.): borderline Oriented: Awake, Alert, Oriented times three Insight: poor Judgment: Poor Psychosis: improved Associations, Abstract Thinking, Psychotic Perceptions DIAGNOSES: Schizoaffective d/o Cannabis use d/o ASSESSMENT: Pt was not coded last night. She was compliant with all her medication again except benadryl and would like to take it at night only which she was told is possible. More cooperative and able to stay focused on taking meds per med nurse. Encouraged to take oral meds each time due. Pt encouraged to get up this am which she did after asked. Continuing to awake pt every morning as shown beneficial in preventing agitation, psychosis, codes in afternoon and night as well as gives pt the ability to sleep at night. Pt is sleeping thru the night currently. Pt encouraged to stay awake all day again today to promote full sleep at night and reduce codes during the night. Pt appears more euthymic, less psychotic, and less reactive. Pt has improved psychosis, delusion, and impulsivity. She is more calm and cooperative. Pt has agreed on admission to [facility] [place] and has been accepted there just waiting for a bed there as they are currently full. This is the second time pt has had rapid readmission with severe wang and psychosis secondary to med noncompliance despite deaconate meds given prior to last d/c. Will have pts hands held each time administered medicine IM for now on. MANAGEMENT PLAN: awaiting [facility] [place] admission. Medications: zofran q4hr prn N/V haldol decanoate 100mg im given 09/22/18 thorazine 50mg qid lithium 600mg bid atarax 25mg q6hr prn anxiety trazodone 50mg qhs prn insomnia ativan 2mg q6hr prn anxiety agitation zyprexa zydis 5mg qam and 10mg qhs ZyPREXA ZYDIS 5 mg Q6HP PRN PO anxiety/agitation benadryl 50ml qhs TIME SPENT: 30 minutes. Vital Signs Vital Signs Date Time Temp Pulse Resp B/P (MAP) Pulse Ox O2 Delivery O2 Flow Rate FiO2 09/24/18 18:00 98.8 97 16 130/87 (101) Laboratory Data 24H Labs Laboratory Tests 2 09/29/18 07:15: Total Creatine Kinase 42, [place] Level 0.65 Current Medications Current Medications Acetaminophen (Tylenol Tab) 650 mg Q6HP PRN PO HEADACHE or DISCOMFORT Last administered on 09/27/18at 12:39; Start 09/09/18 at 14:30 Al Hydrox/Mg Hydrox/Simethicone (Mylanta) 30 ml Q4HP PRN PO HEARTBURN/INDIGESTION; Start 09/09/18 at 14:30 Cetylpyridinium Chloride (Cepacol) 1 yadi Q2HP PRN PO COUGH Last administered on 09/21/18at 21:24; Start 09/17/18 at 14:30 Chlorpromazine HCl (Thorazine) 25 mg TID PO Last administered on 09/10/18at 09:26; Start 09/09/18 at 16:00; Stop 09/10/18 at 09:31; Status DC Chlorpromazine HCl (Thorazine) 50 mg Q6HP PRN PO AGITATION; Start 09/16/18 at 09:15 Chlorpromazine HCl (Thorazine) 50 mg QID PO Last administered on 09/29/18at 08:46; Start 09/16/18 at 13:00; Status Future hold Chlorpromazine HCl (Thorazine) 50 mg STAT STAT IM Last administered on 09/20/18at 22:06; Start 09/20/18 at 21:51; Stop 09/20/18 at 21:53; Status DC Chlorpromazine HCl (Thorazine) 50 mg STAT STAT IM Last administered on 09/15/18at 20:34; Start 09/15/18 at 20:23; Stop 09/15/18 at 20:27; Status DC Chlorpromazine HCl (Thorazine) 100 mg STAT STAT IM Last administered on 09/16/18at 18:48; Start 09/16/18 at 18:21; Stop 09/16/18 at 18:24; Status DC Chlorpromazine HCl (Thorazine) 100 mg STAT STAT IM Last administered on 2/6/19at 20:31; Start 09/16/18 at 18:58; Stop 09/16/18 at 19:00; Status DC Clonazepam (KlonoPIN) 0.5 mg TID PO Last administered on 09/15/18 21:34; Start 09/09/18 at 16:00; Stop 09/16/18 at 13:10; Status DC Diphenhydramine HCl (Benadryl Elixir) 50 mg Q6HP PRN PO ANXIETY Last administered on 09/20/18at 13:41; Start 09/17/18 at 10:45 Diphenhydramine HCl (Benadryl Elixir) 50 mg TID PO Last administered on 09/28/18at 20:05; Start 09/17/18 at 09:00 Diphenhydramine HCl (Benadryl) 50 mg STAT STAT IM Last administered on 09/20/18 22:06; Start 09/20/18 at 21:51; Stop 09/20/18 at 21:53; Status DC Diphenhydramine HCl (Benadryl) 50 mg TID PO Last administered on 09/10/18at 09:26; Start 09/09/18 at 16:00; Stop 09/11/18 at 15:28; Status DC Diphenhydramine HCl (Benadryl) 100 mg STAT STAT IM Last administered on 09/11/18 at 21:54; Start 09/11/18 at 21:09; Stop 09/11/18 at 21:11; Status DC Haloperidol (Haldol) 5 mg TID PRN PO ANXIETY/AGITATION Last administered on 09/12/18 19:03; Start 09/09/18 at 14:30; Stop 09/16/18 at 09:15; Status DC Haloperidol (Haldol) 10 mg QID PO Last administered on 09/15/18 21:34; Start 09/10/18 at 09:00; Stop 09/16/18 at 09:15; Status DC Haloperidol (Haldol) 10 mg STAT STAT IM Last administered on 09/11/18at 16:08; Start 09/11/18 at 15:55; Stop 09/11/18 at 15:57; Status DC Haloperidol (Haldol) 10 mg STAT STAT PO ; Start 09/11/18 at 15:47; Stop 09/11/18 at 15:48; Status DC Haloperidol Decanoate (Haldol Decanoate) 100 mg Q28D IM Last administered on 09/25/18at 10:05; Start 09/25/18 at 09:00 Hydroxyzine HCl (Atarax) 50 mg TIDP PRN PO ANXIETY Last administered on 09/25/18at 16:54; Start 09/09/18 at 14:30 [place] Carbonate (Eskalith Oral Solution) 600 mg BID PO Last administered on 09/24/18at 08:03; Start 09/10/18 at 21:00; Stop 09/24/18 at 10:09; Status DC [place] Carbonate (Eskalith Oral Solution) 900 mg QHS PO Last administered on 09/28/18at 20:03; Start 09/25/18 at 21:00 [place] Carbonate ([place] Carbonate) 600 mg BID PO Last administered on 09/10/18at 08:00; Start 09/09/18 at 21:00; Stop 09/10/18 at 09:31; Status DC Lorazepam (Ativan) 1 mg STAT STAT IM Last administered on 09/15/18at 20:34; Start 09/15/18 at 20:23; Stop 09/15/18 at 20:27; Status DC Lorazepam (Ativan) 2 mg STAT STAT IM Last administered on 09/11/18at 12:32; Start 09/11/18 at 12:19; Stop 09/11/18 at 12:27; Status DC Lorazepam (Ativan) 2 mg STAT STAT IM Last administered on 09/11/18at 21:53; Start 09/11/18 at 21:09; Stop 09/11/18 at 21:11; Status DC Lorazepam (Ativan) 2 mg STAT STAT PO Last administered on 09/15/18at 02:25; Start 09/15/18 at 02:25; Stop 09/15/18 at 02:26; Status DC Magnesium Hydroxide (Milk Of Magnesia) 30 ml DAILYPRN PRN PO CONSTIPATION; Start 09/09/18 at 14:30 Miscellaneous (Unresolved Clarification Entry) SEE LABEL COMMENTS DAILY XX ; Start 09/15/18 at 09:00; Stop 09/16/18 at 06:38; Status DC Miscellaneous (Unresolved Clarification Entry) SEE LABEL COMMENTS DAILY XX ; Start 09/16/18 at 09:00; Stop 09/16/18 at 09:25; Status DC Non-Formulary Medication ( See Comment Field Below ) SEE COMMENTS SECTION 1T@10 XX ; Start 09/16/18 at 10:00; Stop 09/16/18 at 10:00; Status DC Non-Formulary Medication ( See Comment Field Below ) SEE LABEL COMMENTS DAILY XX ; Start 09/14/18 at 09:00 Olanzapine (ZyPREXA) 5 mg Q4HP PRN PO AGITATION; Start 09/09/18 at 14:30 Olanzapine (Zyprexa Intramuscular) 10 mg STAT STAT IM Last administered on 09/11/18at 12:32; Start 09/11/18 at 12:19; Stop 09/11/18 at 12:21; Status DC Olanzapine (Zyprexa Intramuscular) 10 mg STAT STAT IM Last administered on 09/11/18at 21:55; Start 09/11/18 at 21:09; Stop 09/11/18 at 21:11; Status DC Olanzapine (Zyprexa Intramuscular) 10 mg STAT STAT IM Last administered on 09/20/18at 19:00; Start 09/20/18 at 18:47; Stop 09/20/18 at 18:49; Status DC Ondansetron HCl (Zofran Odt) 4 mg Q6HP PRN PO NAUSEA OR VOMITING; Start 09/13/18 at 12:00 Paliperidone Palmitate (Invega Sustenna) 234 mg Q30D@0900 IM ; Start 09/24/18 at 09:00; Status Cancel Trazodone HCl (Desyrel) 50 mg QHSP PRN PO INSOMNIA Last administered on 09/26/18at 21:37; Start 09/09/18 at 14:30 Allergies Coded Allergies: Amoxicillin (Verified Allergy, Intermediate, Hives , 11/01/13) Sulfa Drugs (Verified Allergy, Mild, Rash, fever, vomiting, 11/01/13) Azithromycin (Verified Allergy, Unknown, 11/18/16) interacts with DUSTIN Ac DO Sep 29, 2018 9:22 am
[2018-09-29] MEDS ORDERED: diphenhydrAMINE 12.5MG/5ML ELIXIR UDC PO PRN (09:30)
[2018-09-29] MEDS ORDERED: LITHIUM CARBONATE 300MG/5ML(8MEQ/5ML)ORAL SOLUTION UDC PO ONE (10:00)
[2018-09-29 18:00] VITALS: BP 126/84
[2018-09-29] MEDS: traZODone 50 MG TAB PO PRN (21:44)
[2018-09-29] MEDS: LITHIUM CARBONATE 300MG/5ML(8MEQ/5ML)ORAL SOLUTION UDC PO SCH (21:45)
[2018-09-30] MEDS: **PENDING PPD ENTRY XX SCH (09:00)
[2018-09-30] MEDS: LITHIUM CARBONATE 300MG/5ML(8MEQ/5ML)ORAL SOLUTION UDC PO SCH ×2 (09:11→22:02)
[2018-09-30] MEDS: chlorproMAZINE 25 MG TAB (Q0161) PO SCH ×4 (09:11→22:01)
--- NOTE | 2018-09-30 09:27 | MHIPNPDOC ---
[facility] Progress Note Progress Note DATE OF SERVICE: 09/30/18 HISTORY: Patient is a 28 -year-old , female, with a history of schizoaffective d/o just d/c [facility] last week after 1 month stay for wang with psychosis 09/02/18 who brought to ED yesterday by police under9.41 order after friend called police stating pt was cutting herself and threatening suicide. Pt ED record pt attempted to break into an appt and was then spotted walking down road with numerous bags, found outside storefront huddled in the the cold having no place to go. Per ED, when pt arrived she was floridly psychotic, bizarre, talking to self in room, calling staff numerous names, having flight of ideas, rapid speech, tangential, and easily distracted. Pt did except medications in ED when offered. Pt also spit water on the floor. Pt utox positive cannabis. [place] subtherapeutic at 0.20 when it was 0.97 upon d/c last week. Pt obviously noncompliant on her medication again and abusing substances. Pt seen today and appearing psychotic with fight of ideas, hyperverbal speech, and tangential thoughts. Delusional with pseudocyesis and stating she has undiagnosed epilepsy. Pt behaviorally reactive throwing water in med room. Agreeable to im zyprexa and ativan x1 when offered. Pt is a poor historian with poor ability to participate adequately with interview most likely due to wang/psychosis and medication noncompliance. History gathered from previous records. VITAL SIGNS: See below. NEW TEST RESULTS: lithium level 0.65 low will resume 600mg bid. urine culture negative. CMP and CBC wnl. HIV and hep C and B screening negative. CK 42, liver profile wnl CURRENT MEDICATIONS: See below. MENTAL STATUS EXAMINATION: General Appearance: clean, appears stated age, hospital scrubs/clothing Build: overweight Demeanor: cooperative and calm Eye Contact: good Activity: calm, cooperative Behavior: cooperative, less impulsive, less hyperactive, less restless Speech: more normal and regulate rate, no longer rambling/mumbling Mood: calm and cooperative, more euthymic, other (less reactive) Affect: more euthymic and calm Thought Process: improved tangential, loose, associative, flight of ideas, racing, derailment Thought Content (Delusions): improving grandiose, bizarre, denies SI, HI, AVH , denies paranoia, denies delusions Thought Content (Other): improved preoccupation, denies paranoid Thought Content (Aggressive): none reported Perception (Hallucinations): improved auditory, no longer mumbling to self Perception (Other): none reported Cognition (Impairment of): improved attention/concentration, ability to abstract, unable to assess Cognition(Intelligence Est.): borderline Oriented: Awake, Alert, Oriented times three Insight: poor Judgment: Poor Psychosis: improved Associations, Abstract Thinking, Psychotic Perceptions DIAGNOSES: Schizoaffective d/o Cannabis use d/o ASSESSMENT: Pt was not coded last night. She was compliant with all her medication again except benadryl and would like to take it at night only which she was told is possible. More cooperative and able to stay focused on taking meds per med nurse. Encouraged to take oral meds each time due. Pt up this morning without encouragement and eating breakfast. Continuing to awake pt every morning as shown beneficial in preventing agitation, psychosis, codes in afternoon and night as well as gives pt the ability to sleep at night. Pt is sleeping thru the night currently. Pt encouraged to stay awake all day again today to promote full sleep at night and reduce codes during the night. Pt appears more euthymic, less psychotic, and less reactive. Pt has improved psychosis, delusion, and impulsivity. She is more calm and cooperative. Pt has agreed on admission to [facility] [place] and has been accepted there just waiting for a bed there as they are currently full. This is the second time pt has had rapid readmission with severe wang and psychosis secondary to med noncompliance despite deaconate meds given prior to last d/c. Will have pts hands held each time administered medicine IM for now on. MANAGEMENT PLAN: awaiting [facility] [place] admission. Medications: zofran q4hr prn N/V haldol decanoate 100mg im given 09/22/18 thorazine 50mg qid lithium 600mg bid atarax 25mg q6hr prn anxiety trazodone 50mg qhs prn insomnia ativan 2mg q6hr prn anxiety agitation zyprexa zydis 5mg qam and 10mg qhs ZyPREXA ZYDIS 5 mg Q6HP PRN PO anxiety/agitation benadryl 50ml qhs TIME SPENT: 30 minutes. Vital Signs Vital Signs Date Time Temp Pulse Resp B/P (MAP) Pulse Ox O2 Delivery O2 Flow Rate FiO2 09/29/18 18:00 98.1 84 18 126/84 (98) Current Medications Current Medications Acetaminophen (Tylenol Tab) 650 mg Q6HP PRN PO HEADACHE or DISCOMFORT Last administered on 09/27/18at 12:39; Start 09/09/18 at 14:30 Al Hydrox/Mg Hydrox/Simethicone (Mylanta) 30 ml Q4HP PRN PO HEARTBURN/INDIGESTION; Start 09/09/18 at 14:30 Cetylpyridinium Chloride (Cepacol) 1 yadi Q2HP PRN PO COUGH Last administered on 09/21/18at 21:24; Start 09/17/18 at 14:30 Chlorpromazine HCl (Thorazine) 25 mg TID PO Last administered on 09/10/18at 09:26; Start 09/09/18 at 16:00; Stop 09/10/18 at 09:31; Status DC Chlorpromazine HCl (Thorazine) 50 mg Q6HP PRN PO AGITATION; Start 09/16/18 at 09:15 Chlorpromazine HCl (Thorazine) 50 mg QID PO Last administered on 09/30/18at 09:11; Start 09/16/18 at 13:00; Status Future hold Chlorpromazine HCl (Thorazine) 50 mg STAT STAT IM Last administered on 09/20/18at 22:06; Start 09/20/18 at 21:51; Stop 09/20/18 at 21:53; Status DC Chlorpromazine HCl (Thorazine) 50 mg STAT STAT IM Last administered on 09/15/18at 20:34; Start 09/15/18 at 20:23; Stop 09/15/18 at 20:27; Status DC Chlorpromazine HCl (Thorazine) 100 mg STAT STAT IM Last administered on 09/16/18at 18:48; Start 09/16/18 at 18:21; Stop 09/16/18 at 18:24; Status DC Chlorpromazine HCl (Thorazine) 100 mg STAT STAT IM Last administered on 09/16/18at 20:31; Start 09/16/18 at 18:58; Stop 09/16/18 at 19:00; Status DC Clonazepam (KlonoPIN) 0.5 mg TID PO Last administered on 09/15/18 21:34; Start 09/09/18 at 16:00; Stop 09/16/18 at 13:10; Status DC Diphenhydramine HCl (Benadryl Elixir) 25 mg QHSP PRN PO INSOMNIA/AGITATION; Start 09/29/18 at 09:30 Diphenhydramine HCl (Benadryl Elixir) 50 mg Q6HP PRN PO ANXIETY Last administered on 09/20/18at 13:41; Start 09/17/18 at 10:45 Diphenhydramine HCl (Benadryl Elixir) 50 mg TID PO Last administered on 09/28/18at 20:05; Start 09/17/18 at 09:00; Stop 09/29/18 at 09:25; Status DC Diphenhydramine HCl (Benadryl) 50 mg STAT STAT IM Last administered on 09/20/18 22:06; Start 09/20/18 at 21:51; Stop 09/20/18 at 21:53; Status DC Diphenhydramine HCl (Benadryl) 50 mg TID PO Last administered on 09/10/18at 09:26; Start 09/09/18 at 16:00; Stop 09/11/18 at 15:28; Status DC Diphenhydramine HCl (Benadryl) 100 mg STAT STAT IM Last administered on 09/11/18 21:54; Start 09/11/18 at 21:09; Stop 09/11/18 at 21:11; Status DC Haloperidol (Haldol) 5 mg TID PRN PO ANXIETY/AGITATION Last administered on 19:03; Start 09/09/18 at 14:30; Stop 09/16/18 at 09:15; Status DC Haloperidol (Haldol) 10 mg QID PO Last administered on 09/15/18 21:34; Start 09/10/18 at 09:00; Stop 09/16/18 at 09:15; Status DC Haloperidol (Haldol) 10 mg STAT STAT IM Last administered on 09/11/18 16:08; Start 09/11/18 at 15:55; Stop 09/11/18 at 15:57; Status DC Haloperidol (Haldol) 10 mg STAT STAT PO ; Start 09/11/18 at 15:47; Stop 09/11/18 at 15:48; Status DC Haloperidol Decanoate (Haldol Decanoate) 100 mg Q28D IM Last administered on 09/25/18at 10:05; Start 09/25/18 at 09:00 Hydroxyzine HCl (Atarax) 50 mg TIDP PRN PO ANXIETY Last administered on 9at 16:54; Start 09/09/18 at 14:30 [place] Carbonate (Eskalith Oral Solution) 600 mg BID PO Last administered on 09/24/18at 08:03; Start 09/10/18 at 21:00; Stop 09/24/18 at 10:09; Status DC [place] Carbonate (Eskalith Oral Solution) 600 mg BID PO Last administered on 09/30/18at 09:11; Start 09/29/18 at 21:00 [place] Carbonate (Eskalith Oral Solution) 900 mg QHS PO Last administered on 09/28/18at 20:03; Start 09/25/18 at 21:00; Stop 09/29/18 at 09:25; Status DC [place] Carbonate ([place] Carbonate) 600 mg BID PO Last administered on 09/10/18at 08:00; Start 09/09/18 at 21:00; Stop 09/10/18 at 09:31; Status DC Lorazepam (Ativan) 1 mg STAT STAT IM Last administered on 09/15/18at 20:34; Start 09/15/18 at 20:23; Stop 09/15/18 at 20:27; Status DC Lorazepam (Ativan) 2 mg STAT STAT IM Last administered on 09/11/18at 12:32; Start 09/11/18 at 12:19; Stop 09/11/18 at 12:27; Status DC Lorazepam (Ativan) 2 mg STAT STAT IM Last administered on 09/11/18at 21:53; Start 09/11/18 at 21:09; Stop 09/11/18 at 21:11; Status DC Lorazepam (Ativan) 2 mg STAT STAT PO Last administered on 09/15/18at 02:25; Start 09/15/18 at 02:25; Stop 09/15/18 at 02:26; Status DC Magnesium Hydroxide (Milk Of Magnesia) 30 ml DAILYPRN PRN PO CONSTIPATION; Start 09/09/18 at 14:30 Miscellaneous (Unresolved Clarification Entry) SEE LABEL COMMENTS DAILY XX ; Start 09/15/18 at 09:00; Stop 09/16/18 at 06:38; Status DC Miscellaneous (Unresolved Clarification Entry) SEE LABEL COMMENTS DAILY XX ; Start 09/16/18 at 09:00; Stop 09/16/18 at 09:25; Status DC Non-Formulary Medication ( See Comment Field Below ) SEE COMMENTS SECTION 1T@10 XX ; Start 09/16/18 at 10:00; Stop 09/16/18 at 10:00; Status DC Non-Formulary Medication ( See Comment Field Below ) SEE LABEL COMMENTS DAILY XX ; Start 09/14/18 at 09:00 Olanzapine (ZyPREXA) 5 mg Q4HP PRN PO AGITATION; Start 09/09/18 at 14:30 Olanzapine (Zyprexa Intramuscular) 10 mg STAT STAT IM Last administered on 09/11/18at 12:32; Start 09/11/18 at 12:19; Stop 09/11/18 at 12:21; Status DC Olanzapine (Zyprexa Intramuscular) 10 mg STAT STAT IM Last administered on 09/11/18at 21:55; Start 09/11/18 at 21:09; Stop 09/11/18 at 21:11; Status DC Olanzapine (Zyprexa Intramuscular) 10 mg STAT STAT IM Last administered on 09/20/18at 19:00; Start 09/20/18 at 18:47; Stop 09/20/18 at 18:49; Status DC Ondansetron HCl (Zofran Odt) 4 mg Q6HP PRN PO NAUSEA OR VOMITING; Start 09/13/18 at 12:00 Paliperidone Palmitate (Invega Sustenna) 234 mg Q30D@0900 IM ; Start 09/24/18 at 09:00; Status Cancel Trazodone HCl (Desyrel) 50 mg QHSP PRN PO INSOMNIA Last administered on 09/29/18at 21:44; Start 09/09/18 at 14:30 Allergies Coded Allergies: Amoxicillin (Verified Allergy, Intermediate, Hives , 11/01/13) Sulfa Drugs (Verified Allergy, Mild, Rash, fever, vomiting, 11/01/13) Azithromycin (Verified Allergy, Unknown, 11/18/16) interacts with DUSTIN Ac DO Sep 30, 2018 9:27 am
[2018-09-30 18:00] VITALS: BP 110/75
[2018-10-01] MEDS: **PENDING PPD ENTRY XX SCH (09:00)
[2018-10-01] MEDS: LITHIUM CARBONATE 300MG/5ML(8MEQ/5ML)ORAL SOLUTION UDC PO SCH ×2 (09:19→22:06)
[2018-10-01] MEDS: chlorproMAZINE 25 MG TAB (Q0161) PO SCH ×4 (09:20→22:06)
--- NOTE | 2018-10-01 09:44 | MHIPNPDOC ---
[facility] Progress Note Progress Note DATE OF SERVICE: 10/01/18 HISTORY: Patient is a 28 -year-old , female, with a history of schizoaffective d/o just d/c [facility] last week after 1 month stay for wang with psychosis 09/02/18 who brought to ED yesterday by police under9.41 order after friend called police stating pt was cutting herself and threatening suicide. Pt ED record pt attempted to break into an appt and was then spotted walking down road with numerous bags, found outside storefront huddled in the the cold having no place to go. Per ED, when pt arrived she was floridly psychotic, bizarre, talking to self in room, calling staff numerous names, having flight of ideas, rapid speech, tangential, and easily distracted. Pt did except medications in ED when offered. Pt also spit water on the floor. Pt utox positive cannabis. [place] subtherapeutic at 0.20 when it was 0.97 upon d/c last week. Pt obviously noncompliant on her medication again and abusing substances. Pt seen today and appearing psychotic with fight of ideas, hyperverbal speech, and tangential thoughts. Delusional with pseudocyesis and stating she has undiagnosed epilepsy. Pt behaviorally reactive throwing water in med room. Agreeable to im zyprexa and ativan x1 when offered. Pt is a poor historian with poor ability to participate adequately with interview most likely due to wang/psychosis and medication noncompliance. History gathered from previous records. VITAL SIGNS: See below. NEW TEST RESULTS: lithium level 0.65 low will resume 600mg bid. urine culture negative. CMP and CBC wnl. HIV and hep C and B screening negative. CK 42, liver profile wnl CURRENT MEDICATIONS: See below. MENTAL STATUS EXAMINATION: General Appearance: clean, appears stated age, hospital scrubs/clothing Build: overweight Demeanor: cooperative and calm Eye Contact: good Activity: calm, cooperative Behavior: cooperative, less impulsive, less hyperactive, less restless Speech: more normal and regulate rate, no longer rambling/mumbling Mood: calm and cooperative, more euthymic, other (less reactive) Affect: more euthymic and calm Thought Process: improved tangential, loose, associative, flight of ideas, racing, derailment Thought Content (Delusions): improving grandiose, bizarre, denies SI, HI, AVH , denies paranoia, denies delusions Thought Content (Other): improved preoccupation, denies paranoid Thought Content (Aggressive): none reported Perception (Hallucinations): improved auditory, no longer mumbling to self Perception (Other): none reported Cognition (Impairment of): improved attention/concentration, ability to abstract, unable to assess Cognition(Intelligence Est.): borderline Oriented: Awake, Alert, Oriented times three Insight: poor Judgment: Poor Psychosis: improved Associations, Abstract Thinking, Psychotic Perceptions DIAGNOSES: Schizoaffective d/o Cannabis use d/o ASSESSMENT: Pt was not coded last night. She was compliant with all her medication . More cooperative and able to stay focused on taking meds per med nurse. Encouraged to take oral meds each time due. Pt up this morning without encouragement and eating breakfast. Continuing to awake pt every morning as shown beneficial in preventing agitation, psychosis, codes in afterno on and night as well as gives pt the ability to sleep at night. Pt is sleeping thru the night currently. Pt encouraged to stay awake all day again today to promote full sleep at night and reduce codes during the night. Pt appears more euthymic, less psychotic, and less reactive. Pt has improved psychosis, delusion, and impulsivity. She is more calm and cooperative. Pt has agreed on admission to [facility] and has been accepted there just waiting for a bed there as they are currently full. This is the second time pt has had rapid readmission with severe wang and psychosis secondary to med noncompliance despite deaconate meds given prior to last d/c. Will have pts hands held each time administered medicine IM for now on. MANAGEMENT PLAN: awaiting [facility] admission. Medications: zofran q4hr prn N/V haldol decanoate 100mg im given 09/22/18 thorazine 50mg qid lithium 600mg bid atarax 25mg q6hr prn anxiety trazodone 50mg qhs prn insomnia ativan 2mg q6hr prn anxiety agitation zyprexa zydis 5mg qam and 10mg qhs ZyPREXA ZYDIS 5 mg Q6HP PRN PO anxiety/agitation benadryl 50ml qhs TIME SPENT: 30 minutes. Vital Signs Vital Signs Date Time Temp Pulse Resp B/P (MAP) Pulse Ox O2 Delivery O2 Flow Rate FiO2 10/01/18 09:35 Room Air 09/30/18 18:00 99.0 102 18 110/75 (87) Current Medications Current Medications Acetaminophen (Tylenol Tab) 650 mg Q6HP PRN PO HEADACHE or DISCOMFORT Last administered on 09/27/18at 12:39; Start 09/09/18 at 14:30 Al Hydrox/Mg Hydrox/Simethicone (Mylanta) 30 ml Q4HP PRN PO HEARTBURN/INDIGESTION; Start 09/09/18 at 14:30 Cetylpyridinium Chloride (Cepacol) 1 yadi Q2HP PRN PO COUGH Last administered on 09/21/18at 21:24; Start 09/17/18 at 14:30 Chlorpromazine HCl (Thorazine) 25 mg TID PO Last administered on 09/10/18at 09:26; Start 09/09/18 at 16:00; Stop 09/10/18 at 09:31; Status DC Chlorpromazine HCl (Thorazine) 50 mg Q6HP PRN PO AGITATION; Start 09/16/18 at 09:15 Chlorpromazine HCl (Thorazine) 50 mg QID PO Last administered on 10/01/18at 09:20; Start 09/16/18 at 13:00; Status Future hold Chlorpromazine HCl (Thorazine) 50 mg STAT STAT IM Last administered on 09/20/18at 22:06; Start 09/20/18 at 21:51; Stop 09/20/18 at 21:53; Status DC Chlorpromazine HCl (Thorazine) 50 mg STAT STAT IM Last administered on 09/15/18at 20:34; Start 09/15/18 at 20:23; Stop 09/15/18 at 20:27; Status DC Chlorpromazine HCl (Thorazine) 100 mg STAT STAT IM Last administered on 09/16/18at 18:48; Start 09/16/18 at 18:21; Stop 09/16/18 at 18:24; Status DC Chlorpromazine HCl (Thorazine) 100 mg STAT STAT IM Last administered on 09/16/18at 20:31; Start 09/16/18 at 18:58; Stop 09/16/18 at 19:00; Status DC Clonazepam (KlonoPIN) 0.5 mg TID PO Last administered on 09/15/18 21:34; Start 09/09/18 at 16:00; Stop 09/16/18 at 13:10; Status DC Diphenhydramine HCl (Benadryl Elixir) 25 mg QHSP PRN PO INSOMNIA/AGITATION; Start 09/29/18 at 09:30 Diphenhydramine HCl (Benadryl Elixir) 50 mg Q6HP PRN PO ANXIETY Last administered on 09/20/18at 13:41; Start 09/17/18 at 10:45 Diphenhydramine HCl (Benadryl Elixir) 50 mg TID PO Last administered on 09/28/18at 20:05; Start 09/17/18 at 09:00; Stop 09/29/18 at 09:25; Status DC Diphenhydramine HCl (Benadryl) 50 mg STAT STAT IM Last administered on 09/20/18 22:06; Start 09/20/18 at 21:51; Stop 09/20/18 at 21:53; Status DC Diphenhydramine HCl (Benadryl) 50 mg TID PO Last administered on 09/10/18at 09:26; Start 09/09/18 at 16:00; Stop 09/11/18 at 15:28; Status DC Diphenhydramine HCl (Benadryl) 100 mg STAT STAT IM Last administered on 09/11/18 21:54; Start 09/11/18 at 21:09; Stop 09/11/18 at 21:11; Status DC Haloperidol (Haldol) 5 mg TID PRN PO ANXIETY/AGITATION Last administered on 09/12/18 19:03; Start 09/09/18 at 14:30; Stop 09/16/18 at 09:15; Status DC Haloperidol (Haldol) 10 mg QID PO Last administered on 09/15/18 21:34; Start 09/10/18 at 09:00; Stop 09/16/18 at 09:15; Status DC Haloperidol (Haldol) 10 mg STAT STAT IM Last administered on 09/11/18at 16:08; Start 09/11/18 at 15:55; Stop 09/11/18 at 15:57; Status DC Haloperidol (Haldol) 10 mg STAT STAT PO ; Start 09/11/18 at 15:47; Stop 09/11/18 at 15:48; Status DC Haloperidol Decanoate (Haldol Decanoate) 100 mg Q28D IM Last administered on 09/25/18at 10:05; Start 09/25/18 at 09:00 Hydroxyzine HCl (Atarax) 50 mg TIDP PRN PO ANXIETY Last administered on 09/25/18at 16:54; Start 09/09/18 at 14:30 [place] Carbonate (Eskalith Oral Solution) 600 mg BID PO Last administered on 09/24/18 08:03; Start 09/10/18 at 21:00; Stop 09/24/18 at 10:09; Status DC [place] Carbonate (Eskalith Oral Solution) 600 mg BID PO Last administered on 10/01/18at 09:19; Start 09/29/18 at 21:00 [place] Carbonate (Eskalith Oral Solution) 900 mg QHS PO Last administered on 09/28/18at 20:03; Start 09/25/18 at 21:00; Stop 09/29/18 at 09:25; Status DC [place] Carbonate ([place] Carbonate) 600 mg BID PO Last administered on 09/10/18at 08:00; Start 09/09/18 at 21:00; Stop 09/10/18 at 09:31; Status DC Lorazepam (Ativan) 1 mg STAT STAT IM Last administered on 09/15/18 20:34; Start 09/15/18 at 20:23; Stop 09/15/18 at 20:27; Status DC Lorazepam (Ativan) 2 mg STAT STAT IM Last administered on 09/11/18at 12:32; Start 09/11/18 at 12:19; Stop 09/11/18 at 12:27; Status DC Lorazepam (Ativan) 2 mg STAT STAT IM Last administered on 09/11/18at 21:53; Start 09/11/18 at 21:09; Stop 09/11/18 at 21:11; Status DC Lorazepam (Ativan) 2 mg STAT STAT PO Last administered on 09/15/18at 02:25; Start 09/15/18 at 02:25; Stop 09/15/18 at 02:26; Status DC Magnesium Hydroxide (Milk Of Magnesia) 30 ml DAILYPRN PRN PO CONSTIPATION; Start 09/09/18 at 14:30 Miscellaneous (Unresolved Clarification Entry) SEE LABEL COMMENTS DAILY XX ; Start 09/15/18 at 09:00; Stop 09/16/18 at 06:38; Status DC Miscellaneous (Unresolved Clarification Entry) SEE LABEL COMMENTS DAILY XX ; Start 09/16/18 at 09:00; Stop 09/16/18 at 09:25; Status DC Non-Formulary Medication ( See Comment Field Below ) SEE COMMENTS SECTION 1T@10 XX ; Start 09/16/18 at 10:00; Stop 09/16/18 at 10:00; Status DC Non-Formulary Medication ( See Comment Field Below ) SEE LABEL COMMENTS DAILY XX ; Start 09/14/18 at 09:00 Olanzapine (ZyPREXA) 5 mg Q4HP PRN PO AGITATION; Start 09/09/18 at 14:30 Olanzapine (Zyprexa Intramuscular) 10 mg STAT STAT IM Last administered on 09/11/18at 12:32; Start 09/11/18 at 12:19; Stop 09/11/18 at 12:21; Status DC Olanzapine (Zyprexa Intramuscular) 10 mg STAT STAT IM Last administered on 09/11/18at 21:55; Start 09/11/18 at 21:09; Stop 09/11/18 at 21:11; Status DC Olanzapine (Zyprexa Intramuscular) 10 mg STAT STAT IM Last administered on at 19:00; Start 09/20/18 at 18:47; Stop 09/20/18 at 18:49; Status DC Ondansetron HCl (Zofran Odt) 4 mg Q6HP PRN PO NAUSEA OR VOMITING; Start 09/13/18 at 12:00 Paliperidone Palmitate (Invega Sustenna) 234 mg Q30D@0900 IM ; Start 09/24/18 at 09:00; Status Cancel Trazodone HCl (Desyrel) 50 mg QHSP PRN PO INSOMNIA Last administered on 09/29/18at 21:44; Start 09/09/18 at 14:30 Allergies Coded Allergies: Amoxicillin (Verified Allergy, Intermediate, Hives , 11/01/13) Sulfa Drugs (Verified Allergy, Mild, Rash, fever, vomiting, 11/01/13) Azithromycin (Verified Allergy, Unknown, 11/18/16) interacts with DUSTIN Ac DO Oct 01, 2018 9:44 am
[2018-10-01 18:00] VITALS: BP 133/80
[2018-10-02] MEDS: **PENDING PPD ENTRY XX SCH (09:00)
[2018-10-02] MEDS: chlorproMAZINE 25 MG TAB (Q0161) PO SCH ×4 (09:24→21:57)
[2018-10-02] MEDS: LITHIUM CARBONATE 300MG/5ML(8MEQ/5ML)ORAL SOLUTION UDC PO SCH ×2 (09:24→21:58)
--- NOTE | 2018-10-02 09:50 | MHIPNPDOC ---
[facility] Progress Note Progress Note DATE OF SERVICE: 10/02/18 HISTORY: Patient is a 28 -year-old , female, with a history of schizoaffective d/o just d/c [facility] last week after 1 month stay for wang with psychosis 09/02/18 who brought to ED yesterday by police under9.41 order after friend called police stating pt was cutting herself and threatening suicide. Pt ED record pt attempted to break into an appt and was then spotted walking down road with numerous bags, found outside storefront huddled in the the cold having no place to go. Per ED, when pt arrived she was floridly psychotic, bizarre, talking to self in room, calling staff numerous names, having flight of ideas, rapid speech, tangential, and easily distracted. Pt did except medications in ED when offered. Pt also spit water on the floor. Pt utox positive cannabis. [place] subtherapeutic at 0.20 when it was 0.97 upon d/c last week. Pt obviously noncompliant on her medication again and abusing substances. Pt seen today and appearing psychotic with fight of ideas, hyperverbal speech, and tangential thoughts. Delusional with pseudocyesis and stating she has undiagnosed epilepsy. Pt behaviorally reactive throwing water in med room. Agreeable to im zyprexa and ativan x1 when offered. Pt is a poor historian with poor ability to participate adequately with interview most likely due to wang/psychosis and medication noncompliance. History gathered from previous records. VITAL SIGNS: See below. NEW TEST RESULTS: lithium level 0.65 low will resume 600mg bid. urine culture negative. CMP and CBC wnl. HIV and hep C and B screening negative. CK 42, liver profile wnl CURRENT MEDICATIONS: See below. MENTAL STATUS EXAMINATION: General Appearance: clean, appears stated age, hospital scrubs/clothing Build: overweight Demeanor: cooperative and calm Eye Contact: good Activity: calm, cooperative Behavior: cooperative, less impulsive, less hyperactive, less restless Speech: more normal and regulate rate, no longer rambling/mumbling Mood: calm and cooperative, more euthymic, other (less reactive) Affect: more euthymic and calm Thought Process: improved tangential, loose, associative, flight of ideas, racing, derailment Thought Content (Delusions): improving grandiose, bizarre, denies SI, HI, AVH , denies paranoia, denies delusions Thought Content (Other): improved preoccupation, denies paranoid Thought Content (Aggressive): none reported Perception (Hallucinations): improved auditory, no longer mumbling to self Perception (Other): none reported Cognition (Impairment of): improved attention/concentration, ability to abstract, unable to assess Cognition(Intelligence Est.): borderline Oriented: Awake, Alert, Oriented times three Insight: poor Judgment: Poor Psychosis: improved Associations, Abstract Thinking, Psychotic Perceptions DIAGNOSES: Schizoaffective d/o Cannabis use d/o ASSESSMENT: No change since yesterday. Pt was not coded last night. Pt states she's doing well and hopes to go [place] [facility] [place] She is being very patient while wait to go. She was compliant with all her medication. More cooperative and able to stay focused on taking meds per med nurse. Encouraged to take oral meds each time due. Pt up this morning without encouragement and eating breakfast. Continuing to awake pt every morning as shown beneficial in preventing agitation, psychosis, codes in afternoon and night as well as gives pt the ability to sleep at night. Pt is sleeping thru the night currently. Pt encouraged to stay awake all day again today to promote full sleep at night and reduce codes during the night. Pt appears more euthymic, less psychotic, and less reactive. Pt has improved psychosis, delusion, and impulsivity. She is more calm and cooperative. Pt has agreed on admission [place] [facility] and has been accepted there just waiting for a bed there as they are currently full. This is the second time pt has had rapid readmission with severe wang and psychosis secondary to med noncompliance despite deaconate meds given prior to last d/c. Will have pts hands held each time administered medicine IM for now on. MANAGEMENT PLAN: awaiting [facility] admission. Medications: zofran q4hr prn N/V haldol decanoate 100mg im given 09/22/18 thorazine 50mg qid lithium 600mg bid atarax 25mg q6hr prn anxiety trazodone 50mg qhs prn insomnia ativan 2mg q6hr prn anxiety agitation zyprexa zydis 5mg qam and 10mg qhs ZyPREXA ZYDIS 5 mg Q6HP PRN PO anxiety/agitation benadryl 50ml qhs TIME SPENT: 30 minutes. Vital Signs Vital Signs Date Time Temp Pulse Resp B/P (MAP) Pulse Ox O2 Delivery O2 Flow Rate FiO2 10/01/18 18:00 98.0 118 18 133/80 (97) 10/01/18 09:35 Room Air Current Medications Current Medications Acetaminophen (Tylenol Tab) 650 mg Q6HP PRN PO HEADACHE or DISCOMFORT Last administered on 09/27/18at 12:39; Start 09/09/18 at 14:30 Al Hydrox/Mg Hydrox/Simethicone (Mylanta) 30 ml Q4HP PRN PO HEARTBURN/INDIGESTION; Start 09/09/18 at 14:30 Cetylpyridinium Chloride (Cepacol) 1 yadi Q2HP PRN PO COUGH Last administered on 09/21/18at 21:24; Start 09/17/18 at 14:30 Chlorpromazine HCl (Thorazine) 25 mg TID PO Last administered on 09/10/18at 09:26; Start 09/09/18 at 16:00; Stop 09/10/18 at 09:31; Status DC Chlorpromazine HCl (Thorazine) 50 mg Q6HP PRN PO AGITATION; Start 09/16/18 at 09:15 Chlorpromazine HCl (Thorazine) 50 mg QID PO Last administered on 10/02/18at 09:24; Start 09/16/18 at 13:00; Status Future hold Chlorpromazine HCl (Thorazine) 50 mg STAT STAT IM Last administered on 09/20/18at 22:06; Start 09/20/18 at 21:51; Stop 09/20/18 at 21:53; Status DC Chlorpromazine HCl (Thorazine) 50 mg STAT STAT IM Last administered on 09/15/18at 20:34; Start 09/15/18 at 20:23; Stop 09/15/18 at 20:27; Status DC Chlorpromazine HCl (Thorazine) 100 mg STAT STAT IM Last administered on 09/16/18at 18:48; Start 09/16/18 at 18:21; Stop 09/16/18 at 18:24; Status DC Chlorpromazine HCl (Thorazine) 100 mg STAT STAT IM Last administered on 09/16/18at 20:31; Start 09/16/18 at 18:58; Stop 09/16/18 at 19:00; Status DC Clonazepam (KlonoPIN) 0.5 mg TID PO Last administered on 09/15/18 21:34; Start 09/09/18 at 16:00; Stop 09/16/18 at 13:10; Status DC Diphenhydramine HCl (Benadryl Elixir) 25 mg QHSP PRN PO INSOMNIA/AGITATION; Start 09/29/18 at 09:30 Diphenhydramine HCl (Benadryl Elixir) 50 mg Q6HP PRN PO ANXIETY Last administered on 09/20/18 13:41; Start 09/17/18 at 10:45 Diphenhydramine HCl (Benadryl Elixir) 50 mg TID PO Last administered on 09/28/18 20:05; Start 09/17/18 at 09:00; Stop 09/29/18 at 09:25; Status DC Diphenhydramine HCl (Benadryl) 50 mg STAT STAT IM Last administered on 09/20/18 22:06; Start 09/20/18 at 21:51; Stop 09/20/18 at 21:53; Status DC Diphenhydramine HCl (Benadryl) 50 mg TID PO Last administered on 09/10/18 09:26; Start 09/09/18 at 16:00; Stop 09/11/18 at 15:28; Status DC Diphenhydramine HCl (Benadryl) 100 mg STAT STAT IM Last administered on 09/11/18 21:54; Start 09/11/18 at 21:09; Stop 09/11/18 at 21:11; Status DC Haloperidol (Haldol) 5 mg TID PRN PO ANXIETY/AGITATION Last administered on 09/12/18 19:03; Start 09/09/18 at 14:30; Stop 09/16/18 at 09:15; Status DC Haloperidol (Haldol) 10 mg QID PO Last administered on 09/15/18 21:34; Start 09/10/18 at 09:00; Stop 09/16/18 at 09:15; Status DC Haloperidol (Haldol) 10 mg STAT STAT IM Last administered on 09/11/18 16:08; Start 09/11/18 at 15:55; Stop 09/11/18 at 15:57; Status DC Haloperidol (Haldol) 10 mg STAT STAT PO ; Start 09/11/18 at 15:47; Stop 09/11/18 at 15:48; Status DC Haloperidol Decanoate (Haldol Decanoate) 100 mg Q28D IM Last administered on 09/25/18 10:05; Start 09/25/18 at 09:00 Hydroxyzine HCl (Atarax) 50 mg TIDP PRN PO ANXIETY Last administered on 09/25/18 16:54; Start 09/09/18 at 14:30 [place] Carbonate (Eskalith Oral Solution) 600 mg BID PO Last administered on 09/24/18 08:03; Start 09/10/18 at 21:00; Stop 09/24/18 at 10:09; Status DC [place] Carbonate (Eskalith Oral Solution) 600 mg BID PO Last administered on 10/02/18 09:24; Start 09/29/18 at 21:00 [place] Carbonate (Eskalith Oral Solution) 900 mg QHS PO Last administered on 09/28/18 20:03; Start 09/25/18 at 21:00; Stop 09/29/18 at 09:25; Status DC [place] Carbonate ([place] Carbonate) 600 mg BID PO Last administered on 09/10/18 08:00; Start 09/09/18 at 21:00; Stop 09/10/18 at 09:31; Status DC Lorazepam (Ativan) 1 mg STAT STAT IM Last administered on 09/15/18 20:34; Start 09/15/18 at 20:23; Stop 09/15/18 at 20:27; Status DC Lorazepam (Ativan) 2 mg STAT STAT IM Last administered on 09/11/18 12:32; Start 09/11/18 at 12:19; Stop 09/11/18 at 12:27; Status DC Lorazepam (Ativan) 2 mg STAT STAT IM Last administered on 09/11/18 21:53; Start 09/11/18 at 21:09; Stop 09/11/18 at 21:11; Status DC Lorazepam (Ativan) 2 mg STAT STAT PO Last administered on 2/5/19at 02:25; Start 09/15/18 at 02:25; Stop 09/15/18 at 02:26; Status DC Magnesium Hydroxide (Milk Of Magnesia) 30 ml DAILYPRN PRN PO CONSTIPATION; Start 09/09/18 at 14:30 Miscellaneous (Unresolved Clarification Entry) SEE LABEL COMMENTS DAILY XX ; Start 09/15/18 at 09:00; Stop 09/16/18 at 06:38; Status DC Miscellaneous (Unresolved Clarification Entry) SEE LABEL COMMENTS DAILY XX ; Start 09/16/18 at 09:00; Stop 09/16/18 at 09:25; Status DC Non-Formulary Medication ( See Comment Field Below ) SEE COMMENTS SECTION 1T@10 XX ; Start 09/16/18 at 10:00; Stop 09/16/18 at 10:00; Status DC Non-Formulary Medication ( See Comment Field Below ) SEE LABEL COMMENTS DAILY XX ; Start 09/14/18 at 09:00 Olanzapine (ZyPREXA) 5 mg Q4HP PRN PO AGITATION; Start 09/09/18 at 14:30 Olanzapine (Zyprexa Intramuscular) 10 mg STAT STAT IM Last administered on 09/11/18at 12:32; Start 09/11/18 at 12:19; Stop 09/11/18 at 12:21; Status DC Olanzapine (Zyprexa Intramuscular) 10 mg STAT STAT IM Last administered on 09/11/18at 21:55; Start 09/11/18 at 21:09; Stop 09/11/18 at 21:11; Status DC Olanzapine (Zyprexa Intramuscular) 10 mg STAT STAT IM Last administered on at 19:00; Start 09/20/18 at 18:47; Stop 09/20/18 at 18:49; Status DC Ondansetron HCl (Zofran Odt) 4 mg Q6HP PRN PO NAUSEA OR VOMITING; Start 09/13/18 at 12:00 Paliperidone Palmitate (Invega Sustenna) 234 mg Q30D@0900 IM ; Start 09/24/18 at 09:00; Status Cancel Trazodone HCl (Desyrel) 50 mg QHSP PRN PO INSOMNIA Last administered on 09/29/18at 21:44; Start 09/09/18 at 14:30 Allergies Coded Allergies: Amoxicillin (Verified Allergy, Intermediate, Hives , 11/01/13) Sulfa Drugs (Verified Allergy, Mild, Rash, fever, vomiting, 11/01/13) Azithromycin (Verified Allergy, Unknown, 11/18/16) interacts with DUSTIN Ac DO Oct 02, 2018 09:50
[2018-10-02 18:00] VITALS: BP 116/73
[2018-10-03] MEDS: **PENDING PPD ENTRY XX SCH (08:36)
[2018-10-03] MEDS: chlorproMAZINE 25 MG TAB (Q0161) PO SCH ×4 (08:37→21:00)
[2018-10-03] MEDS: LITHIUM CARBONATE 300MG/5ML(8MEQ/5ML)ORAL SOLUTION UDC PO SCH ×2 (08:38→21:00)
[2018-10-03 18:46] VITALS: BP 122/73
[2018-10-04] MEDS: LITHIUM CARBONATE 300MG/5ML(8MEQ/5ML)ORAL SOLUTION UDC PO SCH ×2 (08:38→20:44)
[2018-10-04] MEDS: chlorproMAZINE 25 MG TAB (Q0161) PO SCH ×4 (08:38→20:44)
[2018-10-04] MEDS: **PENDING PPD ENTRY XX SCH (08:39)
[2018-10-04 18:00] VITALS: BP 126/72
[2018-10-05] MEDS: **PENDING PPD ENTRY XX SCH (09:00)
[2018-10-05] MEDS: LITHIUM CARBONATE 300MG/5ML(8MEQ/5ML)ORAL SOLUTION UDC PO SCH ×2 (09:27→20:41)
[2018-10-05] MEDS: chlorproMAZINE 25 MG TAB (Q0161) PO SCH ×4 (09:27→20:41)
--- NOTE | 2018-10-05 10:26 | MHIPNPDOC ---
[facility] Progress Note Progress Note DATE OF SERVICE: 10/05/18 HISTORY: Patient is a 28 -year-old , female, with a history of schizoaffective d/o just d/c [facility] last week after 1 month stay for wang with psychosis 09/02/18 who brought to ED yesterday by police under9.41 order after friend called police stating pt was cutting herself and threatening suicide. Pt ED record pt attempted to break into an appt and was then spotted walking down road with numerous bags, found outside storefront huddled in the the cold having no place to go. Per ED, when pt arrived she was floridly psychotic, bizarre, talking to self in room, calling staff numerous names, having flight of ideas, rapid speech, tangential, and easily distracted. Pt did except medications in ED when offered. Pt also spit water on the floor. Pt utox positive cannabis. [place] subtherapeutic at 0.20 when it was 0.97 upon d/c last week. Pt obviously noncompliant on her medication again and abusing substances. Pt seen today and appearing psychotic with fight of ideas, hyperverbal speech, and tangential thoughts. Delusional with pseudocyesis and stating she has undiagnosed epilepsy. Pt behaviorally reactive throwing water in med room. Agreeable to im zyprexa and ativan x1 when offered. Pt is a poor historian with poor ability to participate adequately with interview most likely due to wang/psychosis and medication noncompliance. History gathered from previous records. VITAL SIGNS: See below. NEW TEST RESULTS: lithium level 0.65 low will resume 600mg bid. urine culture negative. CMP and CBC wnl. HIV and hep C and B screening negative. CK 42, liver profile wnl CURRENT MEDICATIONS: See below. MENTAL STATUS EXAMINATION: General Appearance: clean, appears stated age, hospital scrubs/clothing Build: overweight Demeanor: cooperative and calm Eye Contact: good Activity: calm, cooperative Behavior: cooperative, less impulsive, less hyperactive, less restless Speech: more normal and regulate rate, no longer rambling/mumbling Mood: calm and cooperative, more euthymic, other (less reactive) Affect: more euthymic and calm Thought Process: improved tangential, loose, associative, flight of ideas, racing, derailment Thought Content (Delusions): improving grandiose, bizarre, denies SI, HI, AVH , denies paranoia, denies delusions Thought Content (Other): improved preoccupation, denies paranoid Thought Content (Aggressive): none reported Perception (Hallucinations): improved auditory, no longer mumbling to self Perception (Other): none reported Cognition (Impairment of): improved attention/concentration, ability to abstract, unable to assess Cognition(Intelligence Est.): borderline Oriented: Awake, Alert, Oriented times three Insight: poor Judgment: Poor Psychosis: improved Associations, Abstract Thinking, Psychotic Perceptions DIAGNOSES: Schizoaffective d/o Cannabis use d/o ASSESSMENT: No change since yesterday. Pt was not coded last night. Pt states she's doing well and hopes to go to [facility] soon. She is being very patient while wait to go. She was compliant with all her medication. More cooperative and able to stay focused on taking meds per med nurse. Encouraged to take oral meds each time due. Pt up this morning without encouragement and eating breakfast. Continuing to awake pt every morning as shown beneficial in preventing agitation, psychosis, codes in afternoon and night as well as gives pt the ability to sleep at night. Pt is sleeping thru the night currently. Pt encouraged to stay awake all day again today to promote full sleep at night and reduce codes during the night. Pt appears more euthymic, less psychotic, and less reactive. Pt has improved psychosis, delusion, and impulsivity. She is more calm and cooperative. Pt has agreed on admission to [facility] and has been accepted there just waiting for a bed there hopefully later this week. This is the second time pt has had rapid readmission with severe wang and psychosis secondary to med noncompliance despite deaconate meds given prior to last d/c. Will have pts hands held each time administered medicine IM for now on. MANAGEMENT PLAN: awaiting [facility] [place]. Medications: zofran q4hr prn N/V haldol decanoate 100mg im given 09/22/18 thorazine 50mg qid lithium 600mg bid atarax 25mg q6hr prn anxiety trazodone 50mg qhs prn insomnia ativan 2mg q6hr prn anxiety agitation zyprexa zydis 5mg qam and 10mg qhs ZyPREXA ZYDIS 5 mg Q6HP PRN PO anxiety/agitation benadryl 50ml qhs TIME SPENT: 30 minutes. Vital Signs Vital Signs Date Time Temp Pulse Resp B/P (MAP) Pulse Ox O2 Delivery O2 Flow Rate FiO2 10/04/18 18:00 98.7 104 16 126/72 (90) 10/01/18 09:35 Room Air Current Medications Current Medications Acetaminophen (Tylenol Tab) 650 mg Q6HP PRN PO HEADACHE or DISCOMFORT Last administered on 09/27/18at 12:39; Start 09/09/18 at 14:30 Al Hydrox/Mg Hydrox/Simethicone (Mylanta) 30 ml Q4HP PRN PO HEARTBURN/INDIGESTION; Start 09/09/18 at 14:30 Cetylpyridinium Chloride (Cepacol) 1 yadi Q2HP PRN PO COUGH Last administered on 09/21/18at 21:24; Start 09/17/18 at 14:30 Chlorpromazine HCl (Thorazine) 25 mg TID PO Last administered on 09/10/18at 09:26; Start 09/09/18 at 16:00; Stop 09/10/18 at 09:31; Status DC Chlorpromazine HCl (Thorazine) 50 mg Q6HP PRN PO AGITATION; Start 09/16/18 at 09:15 Chlorpromazine HCl (Thorazine) 50 mg QID PO Last administered on 10/05/18at 09:27; Start 09/16/18 at 13:00; Status Future hold Chlorpromazine HCl (Thorazine) 50 mg STAT STAT IM Last administered on 09/20/18at 22:06; Start 09/20/18 at 21:51; Stop 09/20/18 at 21:53; Status DC Chlorpromazine HCl (Thorazine) 50 mg STAT STAT IM Last administered on 09/15/18at 20:34; Start 09/15/18 at 20:23; Stop 09/15/18 at 20:27; Status DC Chlorpromazine HCl (Thorazine) 100 mg STAT STAT IM Last administered on 09/16/18at 18:48; Start 09/16/18 at 18:21; Stop 09/16/18 at 18:24; Status DC Chlorpromazine HCl (Thorazine) 100 mg STAT STAT IM Last administered on 09/16/18at 20:31; Start 09/16/18 at 18:58; Stop 09/16/18 at 19:00; Status DC Clonazepam (KlonoPIN) 0.5 mg TID PO Last administered on 09/15/18 21:34; Start 09/09/18 at 16:00; Stop 09/16/18 at 13:10; Status DC Diphenhydramine HCl (Benadryl Elixir) 25 mg QHSP PRN PO INSOMNIA/AGITATION; Start 09/29/18 at 09:30 Diphenhydramine HCl (Benadryl Elixir) 50 mg Q6HP PRN PO ANXIETY Last administered on 09/20/18 13:41; Start 09/17/18 at 10:45 Diphenhydramine HCl (Benadryl Elixir) 50 mg TID PO Last administered on 09/28/18 20:05; Start 09/17/18 at 09:00; Stop 09/29/18 at 09:25; Status DC Diphenhydramine HCl (Benadryl) 50 mg STAT STAT IM Last administered on 09/20/18 22:06; Start 09/20/18 at 21:51; Stop 09/20/18 at 21:53; Status DC Diphenhydramine HCl (Benadryl) 50 mg TID PO Last administered on 09/10/18 09:26; Start 09/09/18 at 16:00; Stop 09/11/18 at 15:28; Status DC Diphenhydramine HCl (Benadryl) 100 mg STAT STAT IM Last administered on 09/11/18 21:54; Start 09/11/18 at 21:09; Stop 09/11/18 at 21:11; Status DC Haloperidol (Haldol) 5 mg TID PRN PO ANXIETY/AGITATION Last administered on 09/12/18 19:03; Start 09/09/18 at 14:30; Stop 09/16/18 at 09:15; Status DC Haloperidol (Haldol) 10 mg QID PO Last administered on 09/15/18 21:34; Start 09/10/18 at 09:00; Stop 09/16/18 at 09:15; Status DC Haloperidol (Haldol) 10 mg STAT STAT IM Last administered on 09/11/18 16:08; Start 09/11/18 at 15:55; Stop 09/11/18 at 15:57; Status DC Haloperidol (Haldol) 10 mg STAT STAT PO ; Start 09/11/18 at 15:47; Stop 09/11/18 at 15:48; Status DC Haloperidol Decanoate (Haldol Decanoate) 100 mg Q28D IM Last administered on 09/25/18 10:05; Start 09/25/18 at 09:00 Hydroxyzine HCl (Atarax) 50 mg TIDP PRN PO ANXIETY Last administered on 09/25/18 16:54; Start 09/09/18 at 14:30 [place] Carbonate (Eskalith Oral Solution) 600 mg BID PO Last administered on 09/24/18 08:03; Start 09/10/18 at 21:00; Stop 09/24/18 at 10:09; Status DC [place] Carbonate (Eskalith Oral Solution) 600 mg BID PO Last administered on 10/05/18 09:27; Start 09/29/18 at 21:00 [place] Carbonate (Eskalith Oral Solution) 900 mg QHS PO Last administered on 09/28/18 20:03; Start 09/25/18 at 21:00; Stop 09/29/18 at 09:25; Status DC [place] Carbonate ([place] Carbonate) 600 mg BID PO Last administered on 09/10/18 08:00; Start 09/09/18 at 21:00; Stop 09/10/18 at 09:31; Status DC Lorazepam (Ativan) 1 mg STAT STAT IM Last administered on 09/15/18 20:34; Start 09/15/18 at 20:23; Stop 09/15/18 at 20:27; Status DC Lorazepam (Ativan) 2 mg STAT STAT IM Last administered on 09/11/18 12:32; Start 09/11/18 at 12:19; Stop 09/11/18 at 12:27; Status DC Lorazepam (Ativan) 2 mg STAT STAT IM Last administered on 09/11/18 21:53; Start 09/11/18 at 21:09; Stop 09/11/18 at 21:11; Status DC Lorazepam (Ativan) 2 mg STAT STAT PO Last administered on 2/5/19at 02:25; Start 09/15/18 at 02:25; Stop 09/15/18 at 02:26; Status DC Magnesium Hydroxide (Milk Of Magnesia) 30 ml DAILYPRN PRN PO CONSTIPATION; Start 09/09/18 at 14:30 Miscellaneous (Unresolved Clarification Entry) SEE LABEL COMMENTS DAILY XX ; Start 09/15/18 at 09:00; Stop 09/16/18 at 06:38; Status DC Miscellaneous (Unresolved Clarification Entry) SEE LABEL COMMENTS DAILY XX ; S tart 09/16/18 at 09:00; Stop 09/16/18 at 09:25; Status DC Non-Formulary Medication ( See Comment Field Below ) SEE COMMENTS SECTION 1T@10 XX ; Start 09/16/18 at 10:00; Stop 09/16/18 at 10:00; Status DC Non-Formulary Medication ( See Comment Field Below ) SEE LABEL COMMENTS DAILY XX ; Start 09/14/18 at 09:00 Olanzapine (ZyPREXA) 5 mg Q4HP PRN PO AGITATION; Start 09/09/18 at 14:30 Olanzapine (Zyprexa Intramuscular) 10 mg STAT STAT IM Last administered on 09/11/18at 12:32; Start 09/11/18 at 12:19; Stop 09/11/18 at 12:21; Status DC Olanzapine (Zyprexa Intramuscular) 10 mg STAT STAT IM Last administered on 09/11/18at 21:55; Start 09/11/18 at 21:09; Stop 09/11/18 at 21:11; Status DC Olanzapine (Zyprexa Intramuscular) 10 mg STAT STAT IM Last administered on 05/29at 19:00; Start 09/20/18 at 18:47; Stop 09/20/18 at 18:49; Status DC Ondansetron HCl (Zofran Odt) 4 mg Q6HP PRN PO NAUSEA OR VOMITING; Start 09/13/18 at 12:00 Paliperidone Palmitate (Invega Sustenna) 234 mg Q30D@0900 IM ; Start 09/24/18 at 09:00; Status Cancel Trazodone HCl (Desyrel) 50 mg QHSP PRN PO INSOMNIA Last administered on 09/29/18at 21:44; Start 09/09/18 at 14:30 Allergies Coded Allergies: Amoxicillin (Verified Allergy, Intermediate, Hives , 11/01/13) Sulfa Drugs (Verified Allergy, Mild, Rash, fever, vomiting, 11/01/13) Azithromycin (Verified Allergy, Unknown, 11/18/16) interacts with DUSTIN Ac DO Oct 05, 2018 10:26 am
[2018-10-05 18:00] VITALS: BP 119/85
[2018-10-05] MEDS: hydrOXYzine 50 MG TAB PO PRN (23:11)
[2018-10-05] MEDS ORDERED: chlorproMAZINE INJ 50MG/2ML AMP (J3230) IM ONE (23:30)
[2018-10-05] MEDS ORDERED: diphenhydrAMINE INJ 50MG/ML VIAL (J1200) IM ONE (23:30)
[2018-10-06] MEDS: chlorproMAZINE 25 MG TAB (Q0161) PO SCH ×4 (08:54→21:00)
[2018-10-06] MEDS: LITHIUM CARBONATE 300MG/5ML(8MEQ/5ML)ORAL SOLUTION UDC PO SCH ×2 (08:55→20:19)
[2018-10-06] MEDS: hydrOXYzine 50 MG TAB PO PRN ×2 (08:55→15:25)
[2018-10-06] MEDS: **PENDING PPD ENTRY XX SCH (09:00)
--- NOTE | 2018-10-06 09:24 | MHIPNPDOC ---
[facility] Progress Note Progress Note DATE OF SERVICE: 10/06/18 HISTORY: Patient is a 28 -year-old , female, with a history of schizoaffective d/o just d/c [facility] last week after 1 month stay for wang with psychosis 09/02/18 who brought to ED yesterday by police under9.41 order after friend called police stating pt was cutting herself and threatening suicide. Pt ED record pt attempted to break into an appt and was then spotted walking down road with numerous bags, found outside storefront huddled in the the cold having no place to go. Per ED, when pt arrived she was floridly psychotic, bizarre, talking to self in room, calling staff numerous names, having flight of ideas, rapid speech, tangential, and easily distracted. Pt did except medications in ED when offered. Pt also spit water on the floor. Pt utox positive cannabis. [place] subtherapeutic at 0.20 when it was 0.97 upon d/c last week. Pt obviously noncompliant on her medication again and abusing substances. Pt seen today and appearing psychotic with fight of ideas, hyperverbal speech, and tangential thoughts. Delusional with pseudocyesis and stating she has undiagnosed epilepsy. Pt behaviorally reactive throwing water in med room. Agreeable to im zyprexa and ativan x1 when offered. Pt is a poor historian with poor ability to participate adequately with interview most likely due to wang/psychosis and medication noncompliance. History gathered from previous records. VITAL SIGNS: See below. NEW TEST RESULTS: lithium level 0.65 low will resume 600mg bid. urine culture negative. CMP and CBC wnl. HIV and hep C and B screening negative. CK 42, liver profile wnl CURRENT MEDICATIONS: See below. MENTAL STATUS EXAMINATION: General Appearance: clean, appears stated age, hospital scrubs/clothing Build: overweight Demeanor: cooperative and calm Eye Contact: good Activity: calm, cooperative Behavior: cooperative, hyperactive, restless Speech: hyperverbal Mood: "good" Affect: hypomanic Thought Process: tangential, loose, associative, flight of ideas, racing Thought Content (Delusions): igrandiose, bizarre, denies SI, HI, AVH , denies paranoia, denies delusions Thought Content (Other): preoccupation, denies paranoid Thought Content (Aggressive): none reported Perception (Hallucinations): auditory Perception (Other): none reported Cognition (Impairment of): attention/concentration, ability to abstract Cognition(Intelligence Est.): borderline Oriented: Awake, Alert, Oriented times three Insight: poor Judgment: Poor Psychosis: improved Associations, Abstract Thinking, Psychotic Perceptions DIAGNOSES: Schizoaffective d/o Cannabis use d/o ASSESSMENT:. Pt received thorazine and benadryl IM last night for psychosis and hypomania. Pt seen in med room speaking to med nurse sounding hyperverbal, tangential, associative, and appearing hypomanic. Will get lithium level today. Pt has been compliant on all her medications. Pt hopes to go to [place] soon. Encouraged to take oral meds each time due. Pt is sleeping thru the night currently. Pt encouraged to stay awake all day again today to promote full sleep at night and reduce codes during the night. Pt appears more hypomanic and psychotic, reactive. Pt has worsened psychosis, delusion, and impulsivity. May need to change haldol dec to q2wk dosing as appears to be wearing off in 2wks as last dose given 09/22. Will make q2wk and give today. She is cooperative. Pt has agreed on admission to [facility] and has been accepted there just waiting for a bed there hopefully later this week. This is the second time pt has had rapid readmission with severe wang and psychosis secondary to med noncompliance despite deaconate meds given prior to last d/c. Will have pts hands held each time administered medicine IM for now on. MANAGEMENT PLAN: awaiting [facility] admission. Medications: zofran q4hr prn N/V haldol decanoate 100mg im q2wk given 09/22/18 thorazine 50mg qid lithium 600mg bid atarax 25mg q6hr prn anxiety trazodone 50mg qhs prn insomnia ativan 2mg q6hr prn anxiety agitation zyprexa zydis 5mg qam and 10mg qhs ZyPREXA ZYDIS 5 mg Q6HP PRN PO anxiety/agitation benadryl 50ml qhs TIME SPENT: 30 minutes. Vital Signs Vital Signs Date Time Temp Pulse Resp B/P (MAP) Pulse Ox O2 Delivery O2 Flow Rate FiO2 10/06/18 07:46 Room Air 10/05/18 18:00 99.0 99 18 119/85 (96) Current Medications Current Medications Acetaminophen (Tylenol Tab) 650 mg Q6HP PRN PO HEADACHE or DISCOMFORT Last administered on 09/27/18 12:39; Start 09/09/18 at 14:30 Al Hydrox/Mg Hydrox/Simethicone (Mylanta) 30 ml Q4HP PRN PO HEARTBURN/INDIGESTION; Start 09/09/18 at 14:30 Cetylpyridinium Chloride (Cepacol) 1 yadi Q2HP PRN PO COUGH Last administered on 09/21/18 21:24; Start 09/17/18 at 14:30 Chlorpromazine HCl (Thorazine) 25 mg TID PO Last administered on 09/10/18 09:26; Start 09/09/18 at 16:00; Stop 09/10/18 at 09:31; Status DC Chlorpromazine HCl (Thorazine) 50 mg Q6HP PRN PO AGITATION; Start 09/16/18 at 09:15 Chlorpromazine HCl (Thorazine) 50 mg QID PO Last administered on 10/06/18 08:54; Start 09/16/18 at 13:00; Status Future hold Chlorpromazine HCl (Thorazine) 50 mg STAT STAT IM Last administered on 09/20/18 22:06; Start 09/20/18 at 21:51; Stop 09/20/18 at 21:53; Status DC Chlorpromazine HCl (Thorazine) 50 mg STAT STAT IM Last administered on 09/15/18 20:34; Start 09/15/18 at 20:23; Stop 09/15/18 at 20:27; Status DC Chlorpromazine HCl (Thorazine) 100 mg STAT STAT IM Last administered on 09/16/18 18:48; Start 09/16/18 at 18:21; Stop 09/16/18 at 18:24; Status DC Chlorpromazine HCl (Thorazine) 100 mg STAT STAT IM Last administered on 09/16/18 20:31; Start 09/16/18 at 18:58; Stop 09/16/18 at 19:00; Status DC Clonazepam (KlonoPIN) 0.5 mg TID PO Last administered on 09/15/18 21:34; Start 09/09/18 at 16:00; Stop 09/16/18 at 13:10; Status DC Diphenhydramine HCl (Benadryl Elixir) 25 mg QHSP PRN PO INSOMNIA/AGITATION; Start 09/29/18 at 09:30 Diphenhydramine HCl (Benadryl Elixir) 50 mg Q6HP PRN PO ANXIETY Last administered on 09/20/18at 13:41; Start 09/17/18 at 10:45 Diphenhydramine HCl (Benadryl Elixir) 50 mg TID PO Last administered on 09/28/18at 20:05; Start 09/17/18 at 09:00; Stop 09/29/18 at 09:25; Status DC Diphenhydramine HCl (Benadryl) 50 mg STAT STAT IM Last administered on 09/20/18 22:06; Start 09/20/18 at 21:51; Stop 09/20/18 at 21:53; Status DC Diphenhydramine HCl (Benadryl) 50 mg TID PO Last administered on 09/10/18at 09:26; Start 09/09/18 at 16:00; Stop 09/11/18 at 15:28; Status DC Diphenhydramine HCl (Benadryl) 100 mg STAT STAT IM Last administered on 09/11/18at 21:54; Start 09/11/18 at 21:09; Stop 09/11/18 at 21:11; Status DC Haloperidol (Haldol) 5 mg TID PRN PO ANXIETY/AGITATION Last administered on 09/12/18 19:03; Start 09/09/18 at 14:30; Stop 09/16/18 at 09:15; Status DC Haloperidol (Haldol) 10 mg QID PO Last administered on 09/15/18 21:34; Start 09/10/18 at 09:00; Stop 09/16/18 at 09:15; Status DC Haloperidol (Haldol) 10 mg STAT STAT IM Last administered on 09/11/18at 16:08; Start 09/11/18 at 15:55; Stop 09/11/18 at 15:57; Status DC Haloperidol (Haldol) 10 mg STAT STAT PO ; Start 09/11/18 at 15:47; Stop 09/11/18 at 15:48; Status DC Haloperidol Decanoate (Haldol Decanoate) 100 mg Q28D IM Last administered on 09/25/18at 10:05; Start 09/25/18 at 09:00 Hydroxyzine HCl (Atarax) 50 mg TIDP PRN PO ANXIETY Last administered on 10/06/18 08:55; Start 09/09/18 at 14:30 [place] Carbonate (Eskal[place] Oral Solution) 600 mg BID PO Last administered on 09/24/18 08:03; Start 09/10/18 at 21:00; Stop 09/24/18 at 10:09; Status DC [place] Carbonate (Eskalith Oral Solution) 600 mg BID PO Last administered on 10/06/18 08:55; Start 09/29/18 at 21:00 [place] Carbonate (Eskalith Oral Solution) 900 mg QHS PO Last administered on 09/28/18at 20:03; Start 09/25/18 at 21:00; Stop 09/29/18 at 09:25; Status DC [place] Carbonate ([place] Carbonate) 600 mg BID PO Last administered on 09/10/18at 08:00; Start 09/09/18 at 21:00; Stop 09/10/18 at 09:31; Status DC Lorazepam (Ativan) 1 mg STAT STAT IM Last administered on 09/15/18 20:34; Start 09/15/18 at 20:23; Stop 09/15/18 at 20:27; Status DC Lorazepam (Ativan) 2 mg STAT STAT IM Last administered on 09/11/18at 12:32; Start 09/11/18 at 12:19; Stop 09/11/18 at 12:27; Status DC Lorazepam (Ativan) 2 mg STAT STAT IM Last administered on 09/11/18 21:53; Start 09/11/18 at 21:09; Stop 09/11/18 at 21:11; Status DC Lorazepam (Ativan) 2 mg STAT STAT PO Last administered on 09/15/18 02:25; Start 09/15/18 at 02:25; Stop 09/15/18 at 02:26; Status DC Magnesium Hydroxide (Milk Of Magnesia) 30 ml DAILYPRN PRN PO CONSTIPATION; Start 09/09/18 at 14:30 Miscellaneous (Unresolved Clarification Entry) SEE LABEL COMMENTS DAILY XX ; Start 09/15/18 at 09:00; Stop 09/16/18 at 06:38; Status DC Miscellaneous (Unresolved Clarification Entry) SEE LABEL COMMENTS DAILY XX ; Start 09/16/18 at 09:00; Stop 09/16/18 at 09:25; Status DC Non-Formulary Medication ( See Comment Field Below ) SEE COMMENTS SECTION 1T@10 XX ; Start 09/16/18 at 10:00; Stop 09/16/18 at 10:00; Status DC Non-Formulary Medication ( See Comment Field Below ) SEE LABEL COMMENTS DAILY XX ; Start 09/14/18 at 09:00 Olanzapine (ZyPREXA) 5 mg Q4HP PRN PO AGITATION; Start 09/09/18 at 14:30 Olanzapine (Zyprexa Intramuscular) 10 mg STAT STAT IM Last administered on 09/11/18at 12:32; Start 09/11/18 at 12:19; Stop 09/11/18 at 12:21; Status DC Olanzapine (Zyprexa Intramuscular) 10 mg STAT STAT IM Last administered on 09/11/18at 21:55; Start 09/11/18 at 21:09; Stop 09/11/18 at 21:11; Status DC Olanzapine (Zyprexa Intramuscular) 10 mg STAT STAT IM Last administered on 09/20/18at 19:00; Start 09/20/18 at 18:47; Stop 09/20/18 at 18:49; Status DC Ondansetron HCl (Zofran Odt) 4 mg Q6HP PRN PO NAUSEA OR VOMITING; Start 09/13/18 at 12:00 Paliperidone Palmitate (Invega Sustenna) 234 mg Q30D@0900 IM ; Start 09/24/18 at 09:00; Status Cancel Trazodone HCl (Desyrel) 50 mg QHSP PRN PO INSOMNIA Last administered on 09/29/18at 21:44; Start 09/09/18 at 14:30 Allergies Coded Allergies: Amoxicillin (Verified Allergy, Intermediate, Hives , 11/01/13) Sulfa Drugs (Verified Allergy, Mild, Rash, fever, vomiting, 11/01/13) Azithromycin (Verified Allergy, Unknown, 11/18/16) interacts with DUSTIN Ac DO Oct 06, 2018 9:23 am
[2018-10-06] MEDS ORDERED: HALOPERIDOL DECANOATE 100 MG/ML VIAL (J1631) IM ONE (10:00)
[2018-10-06] MEDS ORDERED: LORazepam 2 MG/ML VIAL (J2060) IM STA (13:34)
[2018-10-06] MEDS ORDERED: chlorproMAZINE INJ 50MG/2ML AMP (J3230) IM STA (13:34)
[2018-10-06 18:14] VITALS: BP 118/80
[2018-10-07] MEDS: **PENDING PPD ENTRY XX SCH (09:00)
[2018-10-07] MEDS: chlorproMAZINE 25 MG TAB (Q0161) PO SCH ×4 (09:48→21:17)
[2018-10-07] MEDS: LITHIUM CARBONATE 300MG/5ML(8MEQ/5ML)ORAL SOLUTION UDC PO SCH ×2 (09:48→21:18)
--- NOTE | 2018-10-07 09:59 | MHIPNPDOC ---
[facility] Progress Note Progress Note DATE OF SERVICE: 10/07/18 HISTORY: Patient is a 28 -year-old , female, with a history of schizoaffective d/o just d/c [facility] last week after 1 month stay for wang with psychosis 09/02/18 who brought to ED yesterday by police under9.41 order after friend called police stating pt was cutting herself and threatening suicide. Pt ED record pt attempted to break into an appt and was then spotted walking down road with numerous bags, found outside storefront huddled in the the cold having no place to go. Per ED, when pt arrived she was floridly psychotic, bizarre, talking to self in room, calling staff numerous names, having flight of ideas, rapid speech, tangential, and easily distracted. Pt did except medications in ED when offered. Pt also spit water on the floor. Pt utox positive cannabis. [place] subtherapeutic at 0.20 when it was 0.97 upon d/c last week. Pt obviously noncompliant on her medication again and abusing substances. Pt seen today and appearing psychotic with fight of ideas, hyperverbal speech, and tangential thoughts. Delusional with pseudocyesis and stating she has undiagnosed epilepsy. Pt behaviorally reactive throwing water in med room. Agreeable to im zyprexa and ativan x1 when offered. Pt is a poor historian with poor ability to participate adequately with interview most likely due to wang/psychosis and medication noncompliance. History gathered from previous records. VITAL SIGNS: See below. NEW TEST RESULTS: lithium level 0.91. urine culture negative. CMP and CBC wnl. HIV and hep C and B screening negative. CK 42, liver profile wnl CURRENT MEDICATIONS: See below. MENTAL STATUS EXAMINATION: General Appearance: clean, appears stated age, hospital scrubs/clothing Build: overweight Demeanor: cooperative and calm Eye Contact: good Activity: calm, cooperative Behavior: cooperative, less hyperactive, restless Speech: more reg rate and volume Mood: "good" Affect: less hypomanic Thought Process: improved tangential, loose, associative, flight of ideas, racing Thought Content (Delusions): improved grandiose, bizarre, denies SI, HI, AVH , denies paranoia, denies delusions Thought Content (Other): improved preoccupation, denies paranoid Thought Content (Aggressive): none reported Perception (Hallucinations): auditory Perception (Other): none reported Cognition (Impairment of): improved attention/concentration, ability to abstract Cognition(Intelligence Est.): borderline Oriented: Awake, Alert, Oriented times three Insight: poor Judgment: Poor Psychosis: improved Associations, Abstract Thinking, Psychotic Perceptions DIAGNOSES: Schizoaffective d/o Cannabis use d/o ASSESSMENT:. No episodes during the night. Pt seen in room appearing no longer manic and hyperverbal since recieving haldo dec 100mg im (changed to q14d dosing) that she tolerated well. Pt slept well thru the night. Endorses sore throat this am and encourage to take cepacol prn. Will get lithium level 0.91 and therapeutic. Pt has been compliant on all her medications. Pt hopes to go to [facility] soon. Encouraged to take oral meds each time due. Pt encouraged to stay awake all day again today to promote full sleep at night and reduce codes during the night. Pt appears to have improved hypomania and psychosis, reactivity. Pt has improved psychosis, delusion, and impulsivity. She is cooperative. Pt has agreed on admission to [facility] and has been accepted there just waiting for a bed there hopefully later this week. This is the second time pt has had rapid readmission with severe wang and psychosis secondary to med noncompliance despite deaconate meds given prior to last d/c. Will have pts hands held each time administered medicine IM for now on. MANAGEMENT PLAN: awaiting [facility] admission. Medications: zofran q4hr prn N/V haldol decanoate 100mg im q2wk given 09/22/18 thorazine 50mg qid lithium 600mg bid atarax 25mg q6hr prn anxiety trazodone 50mg qhs prn insomnia ativan 2mg q6hr prn anxiety agitation zyprexa zydis 5mg qam and 10mg qhs ZyPREXA ZYDIS 5 mg Q6HP PRN PO anxiety/agitation benadryl 50ml qhs TIME SPENT: 30 minutes. Vital Signs Vital Signs Date Time Temp Pulse Resp B/P (MAP) Pulse Ox O2 Delivery O2 Flow Rate FiO2 10/07/18 07:55 Room Air 10/06/18 18:14 97.4 112 16 118/80 (93) Current Medications Current Medications Acetaminophen (Tylenol Tab) 650 mg Q6HP PRN PO HEADACHE or DISCOMFORT Last administered on 09/27/18at 12:39; Start 09/09/18 at 14:30 Al Hydrox/Mg Hydrox/Simethicone (Mylanta) 30 ml Q4HP PRN PO HEARTBURN/INDIGESTI ON; Start 09/09/18 at 14:30 Cetylpyridinium Chloride (Cepacol) 1 yadi Q2HP PRN PO COUGH Last administered on 09/21/18at 21:24; Start 09/17/18 at 14:30 Chlorpromazine HCl (Thorazine) 25 mg TID PO Last administered on 09/10/18 09:26; Start 09/09/18 at 16:00; Stop 09/10/18 at 09:31; Status DC Chlorpromazine HCl (Thorazine) 50 mg Q6HP PRN PO AGITATION; Start 09/16/18 at 09:15 Chlorpromazine HCl (Thorazine) 50 mg QID PO Last administered on 10/07/18at 09:48; Start 09/16/18 at 13:00; Status Future hold Chlorpromazine HCl (Thorazine) 50 mg STAT STAT IM Last administered on 09/20/18at 22:06; Start 09/20/18 at 21:51; Stop 09/20/18 at 21:53; Status DC Chlorpromazine HCl (Thorazine) 50 mg STAT STAT IM Last administered on 09/15/18at 20:34; Start 09/15/18 at 20:23; Stop 09/15/18 at 20:27; Status DC Chlorpromazine HCl (Thorazine) 100 mg STAT STAT IM Last administered on 10/06/18at 14:06; Start 10/06/18 at 13:34; Stop 10/06/18 at 13:38; Status DC Chlorpromazine HCl (Thorazine) 100 mg STAT STAT IM Last administered on 09/16/18at 18:48; Start 09/16/18 at 18:21; Stop 09/16/18 at 18:24; Status DC Chlorpromazine HCl (Thorazine) 100 mg STAT STAT IM Last administered on 09/16/18at 20:31; Start 09/16/18 at 18:58; Stop 09/16/18 at 19:00; Status DC Clonazepam (KlonoPIN) 0.5 mg TID PO Last administered on 09/15/18 21:34; Start 09/09/18 at 16:00; Stop 09/16/18 at 13:10; Status DC Diphenhydramine HCl (Benadryl Elixir) 25 mg QHSP PRN PO INSOMNIA/AGITATION; Start 09/29/18 at 09:30 Diphenhydramine HCl (Benadryl Elixir) 50 mg Q6HP PRN PO ANXIETY Last administered on 09/20/18 13:41; Start 09/17/18 at 10:45 Diphenhydramine HCl (Benadryl Elixir) 50 mg TID PO Last administered on 09/28/18 20:05; Start 09/17/18 at 09:00; Stop 09/29/18 at 09:25; Status DC Diphenhydramine HCl (Benadryl) 50 mg STAT STAT IM Last administered on 09/20/18 22:06; Start 09/20/18 at 21:51; Stop 09/20/18 at 21:53; Status DC Diphenhydramine HCl (Benadryl) 50 mg TID PO Last administered on 09/10/18 09:26; Start 09/09/18 at 16:00; Stop 09/11/18 at 15:28; Status DC Diphenhydramine HCl (Benadryl) 100 mg STAT STAT IM Last administered on 09/11/18 21:54; Start 09/11/18 at 21:09; Stop 09/11/18 at 21:11; Status DC Haloperidol (Haldol) 5 mg TID PRN PO ANXIETY/AGITATION Last administered on 09/12/18 19:03; Start 09/09/18 at 14:30; Stop 09/16/18 at 09:15; Status DC Haloperidol (Haldol) 10 mg QID PO Last administered on 09/15/18 21:34; Start 09/10/18 at 09:00; Stop 09/16/18 at 09:15; Status DC Haloperidol (Haldol) 10 mg STAT STAT IM Last administered on 09/11/18at 16:08; Start 09/11/18 at 15:55; Stop 09/11/18 at 15:57; Status DC Haloperidol (Haldol) 10 mg STAT STAT PO ; Start 09/11/18 at 15:47; Stop 09/11/18 at 15:48; Status DC Haloperidol Decanoate (Haldol Decanoate) 100 mg Q28D IM Last administered on 09/25/18at 10:05; Start 09/25/18 at 09:00; Stop 10/06/18 at 09:27; Status DC Hydroxyzine HCl (Atarax) 50 mg TIDP PRN PO ANXIETY Last administered on 10/06/18at 15:25; Start 09/09/18 at 14:30 [place] Carbonate (Eskalith Oral Solution) 600 mg BID PO Last administered on 09/24/18 08:03; Start 09/10/18 at 21:00; Stop 09/24/18 at 10:09; Status DC [place] Carbonate (Eskalith Oral Solution) 600 mg BID PO Last administered on 10/07/18 09:48; Start 09/29/18 at 21:00 [place] Carbonate (Eskalith Oral Solution) 900 mg QHS PO Last administered on 09/28/18at 20:03; Start 09/25/18 at 21:00; Stop 09/29/18 at 09:25; Status DC [place] Carbonate ([place] Carbonate) 600 mg BID PO Last administered on 09/10/18at 08:00; Start 09/09/18 at 21:00; Stop 09/10/18 at 09:31; Status DC Lorazepam (Ativan) 1 mg STAT STAT IM Last administered on 09/15/18 20:34; Start 09/15/18 at 20:23; Stop 09/15/18 at 20:27; Status DC Lorazepam (Ativan) 2 mg STAT STAT IM Last administered on 09/11/18at 12:32; Start 09/11/18 at 12:19; Stop 09/11/18 at 12:27; Status DC Lorazepam (Ativan) 2 mg STAT STAT IM Last administered on 09/11/18 21:53; Start 09/11/18 at 21:09; Stop 09/11/18 at 21:11; Status DC Lorazepam (Ativan) 2 mg STAT STAT IM Last administered on 10/06/18at 14:05; Start 10/06/18 at 13:34; Stop 10/06/18 at 13:38; Status DC Lorazepam (Ativan) 2 mg STAT STAT PO Last administered on 09/15/18at 02:25; Start 09/15/18 at 02:25; Stop 09/15/18 at 02:26; Status DC Magnesium Hydroxide (Milk Of Magnesia) 30 ml DAILYPRN PRN PO CONSTIPATION; Start 09/09/18 at 14:30 Miscellaneous (Unresolved Clarification Entry) SEE LABEL COMMENTS DAILY XX ; Start 09/15/18 at 09:00; Stop 09/16/18 at 06:38; Status DC Miscellaneous (Unresolved Clarification Entry) SEE LABEL COMMENTS DAILY XX ; Start 09/16/18 at 09:00; Stop 09/16/18 at 09:25; Status DC Non-Formulary Medication ( See Comment Field Below ) SEE COMMENTS SECTION 1T@10 XX ; Start 09/16/18 at 10:00; Stop 09/16/18 at 10:00; Status DC Non-Formulary Medication ( See Comment Field Below ) SEE LABEL COMMENTS DAILY XX ; Start 09/14/18 at 09:00 Olanzapine (ZyPREXA) 5 mg Q4HP PRN PO AGITATION; Start 09/09/18 at 14:30 Olanzapine (Zyprexa Intramuscular) 10 mg STAT STAT IM Last administered on 09/11/18at 12:32; Start 09/11/18 at 12:19; Stop 09/11/18 at 12:21; Status DC Olanzapine (Zyprexa Intramuscular) 10 mg STAT STAT IM Last administered on 09/11/18at 21:55; Start 09/11/18 at 21:09; Stop 09/11/18 at 21:11; Status DC Olanzapine (Zyprexa Intramuscular) 10 mg STAT STAT IM Last administered on 09/20/18at 19:00; Start 09/20/18 at 18:47; Stop 09/20/18 at 18:49; Status DC Ondansetron HCl (Zofran Odt) 4 mg Q6HP PRN PO NAUSEA OR VOMITING; Start 09/13/18 at 12:00 Paliperidone Palmitate (Invega Sustenna) 234 mg Q30D@0900 IM ; Start 09/24/18 at 09:00; Status Cancel Trazodone HCl (Desyrel) 50 mg QHSP PRN PO INSOMNIA Last administered on 09/29/18at 21:44; Start 09/09/18 at 14:30 Allergies Coded Allergies: Amoxicillin (Verified Allergy, Intermediate, Hives , 11/01/13) Sulfa Drugs (Verified Allergy, Mild, Rash, fever, vomiting, 11/01/13) Azithromycin (Verified Allergy, Unknown, 11/18/16) interacts with DUSTIN Ac DO Oct 07, 2018 9:59 am
[2018-10-07] MEDS: hydrOXYzine 50 MG TAB PO PRN (13:24)
[2018-10-08] MEDS: **PENDING PPD ENTRY XX SCH (09:00)
--- NOTE | 2018-10-08 09:02 | MHIPNPDOC ---
[facility] Progress Note Progress Note DATE OF SERVICE: 10/08/18 HISTORY: Patient is a 28 -year-old , female, with a history of schizoaffective d/o just d/c [facility] last week after 1 month stay for wang with psychosis 09/02/18 who brought to ED yesterday by police under9.41 order after friend called police stating pt was cutting herself and threatening suicide. Pt ED record pt attempted to break into an appt and was then spotted walking down road with numerous bags, found outside storefront huddled in the the cold having no place to go. Per ED, when pt arrived she was floridly psychotic, bizarre, talking to self in room, calling staff numerous names, having flight of ideas, rapid speech, tangential, and easily distracted. Pt did except medications in ED when offered. Pt also spit water on the floor. Pt utox positive cannabis. [place] subtherapeutic at 0.20 when it was 0.97 upon d/c last week. Pt obviously noncompliant on her medication again and abusing substances. Pt seen today and appearing psychotic with fight of ideas, hyperverbal speech, and tangential thoughts. Delusional with pseudocyesis and stating she has undiagnosed epilepsy. Pt behaviorally reactive throwing water in med room. Agreeable to im zyprexa and ativan x1 when offered. Pt is a poor historian with poor ability to participate adequately with interview most likely due to wang/psychosis and medication noncompliance. History gathered from previous records. VITAL SIGNS: See below. NEW TEST RESULTS: lithium level 0.91. urine culture negative. CMP and CBC wnl. HIV and hep C and B screening negative. CK 42, liver profile wnl CURRENT MEDICATIONS: See below. MENTAL STATUS EXAMINATION: General Appearance: clean, appears stated age, hospital scrubs/clothing Build: overweight Demeanor: cooperative and calm Eye Contact: good Activity: calm, cooperative Behavior: cooperative, less hyperactive, restless Speech: more reg rate and volume Mood: "good" Affect: less hypomanic Thought Process: improved tangential, loose, associative, flight of ideas, racing Thought Content (Delusions): improved grandiose, bizarre, denies SI, HI, AVH , denies paranoia, denies delusions Thought Content (Other): improved preoccupation, denies paranoid Thought Content (Aggressive): none reported Perception (Hallucinations): auditory Perception (Other): none reported Cognition (Impairment of): improved attention/concentration, ability to abstract Cognition(Intelligence Est.): borderline Oriented: Awake, Alert, Oriented times three Insight: poor Judgment: Poor Psychosis: improved Associations, Abstract Thinking, Psychotic Perceptions DIAGNOSES: Schizoaffective d/o Cannabis use d/o ASSESSMENT:. No episodes during the night. Pt seen in room appearing no longer manic and hyperverbal since recieving haldo dec 100mg im (changed to q14d dosing) that she tolerated well. Pt slept well thru the night. [place] level 0.91 and therapeutic. Pt has been compliant on all her medications. Pt hopes to go to [facility] soon. Encouraged to take oral meds each time due. Pt encouraged to stay awake all day again today to promote full sleep at night and reduce codes during the night. Pt appears to have improved hypomania and psychosis, reactivity. Pt has improved psychosis, delusion, and impulsivity. She is cooperative. Pt has agreed on admission to [facility] and has been accepted there just waiting for a bed there hopefully later this week. This is the second time pt has had rapid readmission with severe wang and psychosis secondary to med noncompliance despite deaconate meds given prior to last d/c. Will have pts hands held each time administered medicine IM for now on. MANAGEMENT PLAN[place] [facility] [place] Medications: zofran q4hr prn N/V haldol decanoate 100mg im q2wk given 09/22/18 thorazine 50mg qid lithium 600mg bid atarax 25mg q6hr prn anxiety trazodone 50mg qhs prn insomnia ativan 2mg q6hr prn anxiety agitation zyprexa zydis 5mg qam and 10mg qhs ZyPREXA ZYDIS 5 mg Q6HP PRN PO anxiety/agitation benadryl 50ml qhs TIME SPENT: 30 minutes. Vital Signs Vital Signs Date Time Temp Pulse Resp B/P (MAP) Pulse Ox O2 Delivery O2 Flow Rate FiO2 10/07/18 07:55 Room Air 10/06/18 18:14 97.4 112 16 118/80 (93) Current Medications Current Medications Acetaminophen (Tylenol Tab) 650 mg Q6HP PRN PO HEADACHE or DISCOMFORT Last administered on 09/27/18at 12:39; Start 09/09/18 at 14:30 Al Hydrox/Mg Hydrox/Simethicone (Mylanta) 30 ml Q4HP PRN PO HEARTBURN/INDIGESTION; Start 09/09/18 at 14:30 Cetylpyridinium Chloride (Cepacol) 1 yadi Q2HP PRN PO COUGH Last administered on 09/21/18at 21:24; Start 09/17/18 at 14:30 Chlorpromazine HCl (Thorazine) 25 mg TID PO Last administered on 09/10/18at 09:26; Start 09/09/18 at 16:00; Stop 09/10/18 at 09:31; Status DC Chlorpromazine HCl (Thorazine) 50 mg Q6HP PRN PO AGITATION; Start 09/16/18 at 09:15 Chlorpromazine HCl (Thorazine) 50 mg QID PO Last administered on 10/07/18at 21:17; Start 09/16/18 at 13:00; Status Future hold Chlorpromazine HCl (Thorazine) 50 mg STAT STAT IM Last administered on 09/20/18at 22:06; Start 09/20/18 at 21:51; Stop 09/20/18 at 21:53; Status DC Chlorpromazine HCl (Thorazine) 50 mg STAT STAT IM Last administered on 09/15/18at 20:34; Start 09/15/18 at 20:23; Stop 09/15/18 at 20:27; Status DC Chlorpromazine HCl (Thorazine) 100 mg STAT STAT IM Last administered on 10/06/18at 14:06; Start 10/06/18 at 13:34; Stop 10/06/18 at 13:38; Status DC Chlorpromazine HCl (Thorazine) 100 mg STAT STAT IM Last administered on 09/16/18at 18:48; Start 09/16/18 at 18:21; Stop 09/16/18 at 18:24; Status DC Chlorpromazine HCl (Thorazine) 100 mg STAT STAT IM Last administered on 09/16/18at 20:31; Start 09/16/18 at 18:58; Stop 09/16/18 at 19:00; Status DC Clonazepam (KlonoPIN) 0.5 mg TID PO Last administered on 09/15/18 21:34; Start 09/09/18 at 16:00; Stop 09/16/18 at 13:10; Status DC Diphenhydramine HCl (Benadryl Elixir) 25 mg QHSP PRN PO INSOMNIA/AGITATION; Start 09/29/18 at 09:30 Diphenhydramine HCl (Benadryl Elixir) 50 mg Q6HP PRN PO ANXIETY Last administered on 09/20/18at 13:41; Start 09/17/18 at 10:45 Diphenhydramine HCl (Benadryl Elixir) 50 mg TID PO Last administered on 09/28/18at 20:05; Start 09/17/18 at 09:00; Stop 09/29/18 at 09:25; Status DC Diphenhydramine HCl (Benadryl) 50 mg STAT STAT IM Last administered on 09/20/18at 22:06; Start 09/20/18 at 21:51; Stop 09/20/18 at 21:53; Status DC Diphenhydramine HCl (Benadryl) 50 mg TID PO Last administered on 09/10/18at 09:26; Start 09/09/18 at 16:00; Stop 09/11/18 at 15:28; Status DC Diphenhydramine HCl (Benadryl) 100 mg STAT STAT IM Last administered on 09/11/18 21:54; Start 09/11/18 at 21:09; Stop 09/11/18 at 21:11; Status DC Haloperidol (Haldol) 5 mg TID PRN PO ANXIETY/AGITATION Last administered on 09/12/18 19:03; Start 09/09/18 at 14:30; Stop 09/16/18 at 09:15; Status DC Haloperidol (Haldol) 10 mg QID PO Last administered on 09/15/18 21:34; Start 09/10/18 at 09:00; Stop 09/16/18 at 09:15; Status DC Haloperidol (Haldol) 10 mg STAT STAT IM Last administered on 09/11/18at 16:08; Start 09/11/18 at 15:55; Stop 09/11/18 at 15:57; Status DC Haloperidol (Haldol) 10 mg STAT STAT PO ; Start 09/11/18 at 15:47; Stop 09/11/18 at 15:48; Status DC Haloperidol Decanoate (Haldol Decanoate) 100 mg Q28D IM Last administered on 09/25/18 10:05; Start 09/25/18 at 09:00; Stop 10/06/18 at 09:27; Status DC Hydroxyzine HCl (Atarax) 50 mg TIDP PRN PO ANXIETY Last administered on 10/07/18 13:24; Start 09/09/18 at 14:30 [place] Carbonate (Eskalith Oral Solution) 600 mg BID PO Last administered on 09/24/18 08:03; Start 09/10/18 at 21:00; Stop 09/24/18 at 10:09; Status DC [place] Carbonate (Eskalith Oral Solution) 600 mg BID PO Last administered on 10/07/18 21:18; Start 09/29/18 at 21:00 [place] Carbonate (Eskalith Oral Solution) 900 mg QHS PO Last administered on 09/28/18at 20:03; Start 09/25/18 at 21:00; Stop 09/29/18 at 09:25; Status DC [place] Carbonate ([place] Carbonate) 600 mg BID PO Last administered on 09/10/18at 08:00; Start 09/09/18 at 21:00; Stop 09/10/18 at 09:31; Status DC Lorazepam (Ativan) 1 mg STAT STAT IM Last administered on 09/15/18 20:34; Start 09/15/18 at 20:23; Stop 09/15/18 at 20:27; Status DC Lorazepam (Ativan) 2 mg STAT STAT IM Last administered on 09/11/18at 12:32; Start 09/11/18 at 12:19; Stop 09/11/18 at 12:27; Status DC Lorazepam (Ativan) 2 mg STAT STAT IM Last administered on 09/11/18at 21:53; Start 09/11/18 at 21:09; Stop 09/11/18 at 21:11; Status DC Lorazepam (Ativan) 2 mg STAT STAT IM Last administered on 10/06/18at 14:05; Start 10/06/18 at 13:34; Stop 10/06/18 at 13:38; Status DC Lorazepam (Ativan) 2 mg STAT STAT PO Last administered on 09/15/18at 02:25; Start 09/15/18 at 02:25; Stop 09/15/18 at 02:26; Status DC Magnesium Hydroxide (Milk Of Magnesia) 30 ml DAILYPRN PRN PO CONSTIPATION; Start 09/09/18 at 14:30 Miscellaneous (Unresolved Clarification Entry) SEE LABEL COMMENTS DAILY XX ; Start 09/15/18 at 09:00; Stop 09/16/18 at 06:38; Status DC Miscellaneous (Unresolved Clarification Entry) SEE LABEL COMMENTS DAILY XX ; Start 09/16/18 at 09:00; Stop 09/16/18 at 09:25; Status DC Non-Formulary Medication ( See Comment Field Below ) SEE COMMENTS SECTION 1T@10 XX ; Start 09/16/18 at 10:00; Stop 09/16/18 at 10:00; Status DC Non-Formulary Medication ( See Comment Field Below ) SEE LABEL COMMENTS DAILY XX ; Start 09/14/18 at 09:00 Olanzapine (ZyPREXA) 5 mg Q4HP PRN PO AGITATION; Start 09/09/18 at 14:30 Olanzapine (Zyprexa Intramuscular) 10 mg STAT STAT IM Last administered on 09/11/18at 12:32; Start 09/11/18 at 12:19; Stop 09/11/18 at 12:21; Status DC Olanzapine (Zyprexa Intramuscular) 10 mg STAT STAT IM Last administered on 09/11/18at 21:55; Start 09/11/18 at 21:09; Stop 09/11/18 at 21:11; Status DC Olanzapine (Zyprexa Intramuscular) 10 mg STAT STAT IM Last administered on 09/20/18at 19:00; Start 09/20/18 at 18:47; Stop 09/20/18 at 18:49; Status DC Ondansetron HCl (Zofran Odt) 4 mg Q6HP PRN PO NAUSEA OR VOMITING; Start 09/13/18 at 12:00 Paliperidone Palmitate (Invega Sustenna) 234 mg Q30D@0900 IM ; Start 09/24/18 at 09:00; Status Cancel Trazodone HCl (Desyrel) 50 mg QHSP PRN PO INSOMNIA Last administered on 09/29/18at 21:44; Start 09/09/18 at 14:30 Allergies Coded Allergies: Amoxicillin (Verified Allergy, Intermediate, Hives , 11/01/13) Sulfa Drugs (Verified Allergy, Mild, Rash, fever, vomiting, 11/01/13) Azithromycin (Verified Allergy, Unknown, 11/18/16) interacts with DUSTIN Ac DO Oct 08, 2018 9:02 am
[2018-10-08] MEDS: LITHIUM CARBONATE 300MG/5ML(8MEQ/5ML)ORAL SOLUTION UDC PO SCH ×2 (09:22→20:59)
[2018-10-08] MEDS: chlorproMAZINE 25 MG TAB (Q0161) PO SCH ×4 (09:22→20:58)
[2018-10-08] MEDS: hydrOXYzine 50 MG TAB PO PRN ×3 (09:22→22:09)
[2018-10-08 18:00] VITALS: BP 126/77
[2018-10-09] MEDS: ACETAMINOPHEN TAB 650MG DOSE (2X325MG) PO PRN ×3 (03:50→20:52)
[2018-10-09] MEDS: CEPACOL LOZENGE PO PRN (03:51)
[2018-10-09] MEDS: **PENDING PPD ENTRY XX SCH (09:00)
[2018-10-09] MEDS: hydrOXYzine 50 MG TAB PO PRN ×3 (09:49→20:50)
[2018-10-09] MEDS: chlorproMAZINE 25 MG TAB (Q0161) PO SCH ×4 (09:49→20:51)
[2018-10-09] MEDS: LITHIUM CARBONATE 300MG/5ML(8MEQ/5ML)ORAL SOLUTION UDC PO SCH ×2 (09:49→20:53)
--- NOTE | 2018-10-09 10:49 | MHIPNPDOC ---
[facility] Progress Note Progress Note DATE OF SERVICE: 10/09/18 HISTORY: Patient is a 28 -year-old , female, with a history of schizoaffective d/o just d/c [facility] last week after 1 month stay for wang with psychosis 09/02/18 who brought to ED yesterday by police under9.41 order after friend called police stating pt was cutting herself and threatening suicide. Pt ED record pt attempted to break into an appt and was then spotted walking down road with numerous bags, found outside storefront huddled in the the cold having no place to go. Per ED, when pt arrived she was floridly psychotic, bizarre, talking to self in room, calling staff numerous names, having flight of ideas, rapid speech, tangential, and easily distracted. Pt did except medications in ED when offered. Pt also spit water on the floor. Pt utox positive cannabis. [place] subtherapeutic at 0.20 when it was 0.97 upon d/c last week. Pt obviously noncompliant on her medication again and abusing substances. Pt seen today and appearing psychotic with fight of ideas, hyperverbal speech, and tangential thoughts. Delusional with pseudocyesis and stating she has undiagnosed epilepsy. Pt behaviorally reactive throwing water in med room. Agreeable to im zyprexa and ativan x1 when offered. Pt is a poor historian with poor ability to participate adequately with interview most likely due to wang/psychosis and medication noncompliance. History gathered from previous records. VITAL SIGNS: See below. NEW TEST RESULTS: lithium level 0.91. urine culture negative. CMP and CBC wnl. HIV and hep C and B screening negative. CK 42, liver profile wnl CURRENT MEDICATIONS: See below. MENTAL STATUS EXAMINATION: General Appearance: clean, appears stated age, hospital scrubs/clothing Build: overweight Demeanor: cooperative and calm Eye Contact: good Activity: calm, cooperative Behavior: cooperative, less hyperactive, restless Speech: slightly hyperverbal Mood: "anxious" Affect: less hypomanic Thought Process: slightly hyperverbal, tangential, loose, associative, flight of ideas, racing Thought Content (Delusions): improved grandiose, bizarre, denies SI, HI, AVH , denies paranoia, denies delusions Thought Content (Other): improved preoccupation, denies paranoid Thought Content (Aggressive): none reported Perception (Hallucinations): auditory Perception (Other): none reported Cognition (Impairment of): improved attention/concentration, ability to abstract Cognition(Intelligence Est.): borderline Oriented: Awake, Alert, Oriented times three Insight: poor Judgment: Poor Psychosis: improved Associations, Abstract Thinking, Psychotic Perceptions DIAGNOSES: Schizoaffective d/o Cannabis use d/o ASSESSMENT:. No episodes during the night. Pt seen in room appearing no longer manic and but is slightly hyperverbal since receiving haldo dec 100mg im (changed to q14d dosing) that she tolerated well. Pt slept well thru the night. [place] level 0.91 and therapeutic. Pt has been compliant on all her medications. Complaint on anxiety and asking to increase vistaril which is ok. Pt to go to [facility] Friday. Encouraged to take oral meds each time due. Pt encouraged to stay awake all day again today to promote full sleep at night and reduce codes during the night. Pt appears to have improved hypomania and psychosis, reactivity. Pt has improved psychosis, delusion, and impulsivity. She is cooperative. Pt has agreed on admission to [facility] and has been accepted there just waiting for a bed there hopefully later this week. This is the second time pt has had rapid readmission with severe wang and psychosis secondary to med noncompliance despite deaconate meds given prior to last d/c. Will have pts hands held each time administered medicine IM for now on. MANAGEMENT PLAN: awaiting [facility] admission Friday. Medications: zofran q4hr prn N/V haldol decanoate 100mg im q2wk given 09/22/18 thorazine 50mg qid lithium 600mg bid atarax 100mg q6hr prn anxiety trazodone 50mg qhs prn insomnia ativan 2mg q6hr prn anxiety agitation zyprexa zydis 5mg qam and 10mg qhs ZyPREXA ZYDIS 5 mg Q6HP PRN PO anxiety/agitation benadryl 50ml qhs TIME SPENT: 30 minutes. Vital Signs Vital Signs Date Time Temp Pulse Resp B/P (MAP) Pulse Ox O2 Delivery O2 Flow Rate FiO2 10/08/18 18:00 98.8 92 16 126/77 (93) 10/07/18 07:55 Room Air Current Medications Current Medications Acetaminophen (Tylenol Tab) 650 mg Q6HP PRN PO HEADACHE or DISCOMFORT Last administered on 10/09/18 09:49; Start 09/09/18 at 14:30 Al Hydrox/Mg Hydrox/Simethicone (Mylanta) 30 ml Q4HP PRN PO HEARTBURN/INDIGESTION; Start 09/09/18 at 14:30 Cetylpyridinium Chloride (Cepacol) 1 yadi Q2HP PRN PO COUGH Last administered on 10/09/18 03:51; Start 09/17/18 at 14:30 Chlorpromazine HCl (Thorazine) 25 mg TID PO Last administered on 09/10/18 09:26; Start 09/09/18 at 16:00; Stop 09/10/18 at 09:31; Status DC Chlorpromazine HCl (Thorazine) 50 mg Q6HP PRN PO AGITATION; Start 09/16/18 at 09:15 Chlorpromazine HCl (Thorazine) 50 mg QID PO Last administered on 10/09/18at 09:49; Start 09/16/18 at 13:00; Status Future hold Chlorpromazine HCl (Thorazine) 50 mg STAT STAT IM Last administered on 09/20/18at 22:06; Start 09/20/18 at 21:51; Stop 09/20/18 at 21:53; Status DC Chlorpromazine HCl (Thorazine) 50 mg STAT STAT IM Last administered on 09/15/18at 20:34; Start 09/15/18 at 20:23; Stop 09/15/18 at 20:27; Status DC Chlorpromazine HCl (Thorazine) 100 mg STAT STAT IM Last administered on at 14:06; Start 10/06/18 at 13:34; Stop 10/06/18 at 13:38; Status DC Chlorpromazine HCl (Thorazine) 100 mg STAT STAT IM Last administered on 09/16/18 18:48; Start 09/16/18 at 18:21; Stop 09/16/18 at 18:24; Status DC Chlorpromazine HCl (Thorazine) 100 mg STAT STAT IM Last administered on 09/16/18at 20:31; Start 09/16/18 at 18:58; Stop 09/16/18 at 19:00; Status DC Clonazepam (KlonoPIN) 0.5 mg TID PO Last administered on 09/15/18 21:34; Start 09/09/18 at 16:00; Stop 09/16/18 at 13:10; Status DC Diphenhydramine HCl (Benadryl Elixir) 25 mg QHSP PRN PO INSOMNIA/AGITATION; Start 09/29/18 at 09:30 Diphenhydramine HCl (Benadryl Elixir) 50 mg Q6HP PRN PO ANXIETY Last administered on 09/20/18 13:41; Start 09/17/18 at 10:45 Diphenhydramine HCl (Benadryl Elixir) 50 mg TID PO Last administered on 09/28/18 20:05; Start 09/17/18 at 09:00; Stop 09/29/18 at 09:25; Status DC Diphenhydramine HCl (Benadryl) 50 mg STAT STAT IM Last administered on 09/20/18 22:06; Start 09/20/18 at 21:51; Stop 09/20/18 at 21:53; Status DC Diphenhydramine HCl (Benadryl) 50 mg TID PO Last administered on 09/10/18 09:26; Start 09/09/18 at 16:00; Stop 09/11/18 at 15:28; Status DC Diphenhydramine HCl (Benadryl) 100 mg STAT STAT IM Last administered on 09/11/18 21:54; Start 09/11/18 at 21:09; Stop 09/11/18 at 21:11; Status DC Haloperidol (Haldol) 5 mg TID PRN PO ANXIETY/AGITATION Last administered on 09/12/18 19:03; Start 09/09/18 at 14:30; Stop 09/16/18 at 09:15; Status DC Haloperidol (Haldol) 10 mg QID PO Last administered on 09/15/18 21:34; Start 09/10/18 at 09:00; Stop 09/16/18 at 09:15; Status DC Haloperidol (Haldol) 10 mg STAT STAT IM Last administered on 09/11/18at 16:08; Start 09/11/18 at 15:55; Stop 09/11/18 at 15:57; Status DC Haloperidol (Haldol) 10 mg STAT STAT PO ; Start 09/11/18 at 15:47; Stop 09/11/18 at 15:48; Status DC Haloperidol Decanoate (Haldol Decanoate) 100 mg Q28D IM Last administered on at 10:05; Start 09/25/18 at 09:00; Stop 10/06/18 at 09:27; Status DC Hydroxyzine HCl (Atarax) 50 mg TIDP PRN PO ANXIETY Last administered on 10/09/18 09:49; Start 09/09/18 at 14:30 [place] Carbonate (Eskalith Oral Solution) 600 mg BID PO Last administered on 09/24/18 08:03; Start 09/10/18 at 21:00; Stop 09/24/18 at 10:09; Status DC [place] Carbonate (Eskalith Oral Solution) 600 mg BID PO Last administered on 10/09/18 09:49; Start 09/29/18 at 21:00 [place] Carbonate (Eskalith Oral Solution) 900 mg QHS PO Last administered on 09/28/18at 20:03; Start 09/25/18 at 21:00; Stop 09/29/18 at 09:25; Status DC [place] Carbonate ([place] Carbonate) 600 mg BID PO Last administered on 09/10/18at 08:00; Start 09/09/18 at 21:00; Stop 09/10/18 at 09:31; Status DC Lorazepam (Ativan) 1 mg STAT STAT IM Last administered on 09/15/18 20:34; Start 09/15/18 at 20:23; Stop 09/15/18 at 20:27; Status DC Lorazepam (Ativan) 2 mg STAT STAT IM Last administered on 09/11/18at 12:32; Start 09/11/18 at 12:19; Stop 09/11/18 at 12:27; Status DC Lorazepam (Ativan) 2 mg STAT STAT IM Last administered on 09/11/18 21:53; Start 09/11/18 at 21:09; Stop 09/11/18 at 21:11; Status DC Lorazepam (Ativan) 2 mg STAT STAT IM Last administered on 10/06/18at 14:05; Start 10/06/18 at 13:34; Stop 10/06/18 at 13:38; Status DC Lorazepam (Ativan) 2 mg STAT STAT PO Last administered on 09/15/18at 02:25; Start 09/15/18 at 02:25; Stop 09/15/18 at 02:26; Status DC Magnesium Hydroxide (Milk Of Magnesia) 30 ml DAILYPRN PRN PO CONSTIPATION; Start 09/09/18 at 14:30 Miscellaneous (Unresolved Clarification Entry) SEE LABEL COMMENTS DAILY XX ; Start 10/08/18 at 09:00; Stop 10/09/18 at 10:31; Status DC Miscellaneous (Unresolved Clarification Entry) SEE LABEL COMMENTS DAILY XX ; Start 09/15/18 at 09:00; Stop 09/16/18 at 06:38; Status DC Miscellaneous (Unresolved Clarification Entry) SEE LABEL COMMENTS DAILY XX ; Start 09/16/18 at 09:00; Stop 09/16/18 at 09:25; Status DC Non-Formulary Medication ( See Comment Field Below ) SEE COMMENTS SECTION 1T@10 XX ; Start 09/16/18 at 10:00; Stop 09/16/18 at 10:00; Status DC Non-Formulary Medication ( See Comment Field Below ) SEE LABEL COMMENTS BARBARA LY XX ; Start 09/14/18 at 09:00 Olanzapine (ZyPREXA) 5 mg Q4HP PRN PO AGITATION; Start 09/09/18 at 14:30 Olanzapine (Zyprexa Intramuscular) 10 mg STAT STAT IM Last administered on 09/11/18at 12:32; Start 09/11/18 at 12:19; Stop 09/11/18 at 12:21; Status DC Olanzapine (Zyprexa Intramuscular) 10 mg STAT STAT IM Last administered on 09/11/18at 21:55; Start 09/11/18 at 21:09; Stop 09/11/18 at 21:11; Status DC Olanzapine (Zyprexa Intramuscular) 10 mg STAT STAT IM Last administered on 09/20/18at 19:00; Start 09/20/18 at 18:47; Stop 09/20/18 at 18:49; Status DC Ondansetron HCl (Zofran Odt) 4 mg Q6HP PRN PO NAUSEA OR VOMITING; Start 09/13/18 at 12:00 Paliperidone Palmitate (Invega Sustenna) 234 mg Q30D@0900 IM ; Start 09/24/18 at 09:00; Status Cancel Trazodone HCl (Desyrel) 50 mg QHSP PRN PO INSOMNIA Last administered on 09/29/18at 21:44; Start 09/09/18 at 14:30 Allergies Coded Allergies: Amoxicillin (Verified Allergy, Intermediate, Hives , 11/01/13) Sulfa Drugs (Verified Allergy, Mild, Rash, fever, vomiting, 11/01/13) Azithromycin (Verified Allergy, Unknown, 11/18/16) interacts with DUSTIN Ac DO Oct 09, 2018 10:49 am
[2018-10-09 18:00] VITALS: BP 121/86
[2018-10-10] MEDS: ACETAMINOPHEN TAB 650MG DOSE (2X325MG) PO PRN ×3 (05:54→22:29)
[2018-10-10] MEDS: hydrOXYzine 50 MG TAB PO PRN ×4 (05:56→22:27)
[2018-10-10 06:15] VITALS: BP 116/78
[2018-10-10] MEDS: **PENDING PPD ENTRY XX SCH (09:00)
[2018-10-10] MEDS: chlorproMAZINE 25 MG TAB (Q0161) PO SCH ×4 (09:08→22:26)
[2018-10-10] MEDS: LITHIUM CARBONATE 300MG/5ML(8MEQ/5ML)ORAL SOLUTION UDC PO SCH ×2 (09:09→22:26)
[2018-10-10 18:14] VITALS: BP 135/92
[2018-10-10] MEDS ORDERED: OLANZapine INTRAMUSCULAR 10 MG VIAL (S0166) IM ONE (23:45)
[2018-10-10] MEDS ORDERED: diphenhydrAMINE INJ 50MG/ML VIAL (J1200) IM ONE (23:45)
[2018-10-11] MEDS ORDERED: HALOPERIDOL 5 MG/ML VIAL (J1630) IM STA (01:09)
[2018-10-11] MEDS ORDERED: LORazepam 2 MG/ML VIAL (J2060) IM STA (01:09)
[2018-10-11] MEDS ORDERED: diphenhydrAMINE INJ 50MG/ML VIAL (J1200) IM STA ×2 (01:09→22:42)
[2018-10-11] MEDS: LITHIUM CARBONATE 300MG/5ML(8MEQ/5ML)ORAL SOLUTION UDC PO SCH ×2 (10:54→21:00)
[2018-10-11] MEDS: chlorproMAZINE 25 MG TAB (Q0161) PO SCH ×4 (10:54→21:00)
[2018-10-11] MEDS: hydrOXYzine 50 MG TAB PO PRN ×3 (10:55→22:28)
[2018-10-11] MEDS: ACETAMINOPHEN TAB 650MG DOSE (2X325MG) PO PRN ×2 (10:56→16:38)
[2018-10-11] MEDS: **PENDING PPD ENTRY XX SCH (10:56)
--- NOTE | 2018-10-11 13:06 | MHPR ---
General Date: Oct 11, 2018 Time: 10:00 Post-Restraint Evaluation THE OUTCOME OF THE RESTRAINT: it was positive, patient was able to calm down, she fell asleep EFFECTIVENESS OF THE RESTRAINT: [chemical] it was positive, patient was able to calm down, she stopped yelling at staff and allowed other patients to sleep. ANY EVIDENCE THAT THE PATIENT WAS AFFECTED EMOTIONALLY: Not in a negative way, she had a good response to medications and she went to sleep. ANY NEED FOR COUNSELING/ASSISTANCE: she has been re directed by staff, she has been receiving advise to talk to staff when she feels overwhelmed instead of displaying verbally aggressive behavior. CHANGES IN TREATMENT PLAN: Anti psychotic and mood stabilizers might need to be increased/changed. RECOMMENDATIONS FOR FUTURE INCIDENTS: Encourage medication compliance, report to staff when not feeling well an encourage group attendance when she feels calm LOBITO AGUERO MD Oct 11, 2018 13:06
[2018-10-11] MEDS: CEPACOL LOZENGE PO PRN ×2 (17:19→22:31)
[2018-10-11] MEDS ORDERED: OLANZapine ORAL DISINTEGRATING TAB 5MG PO STA (22:42)
[2018-10-11] MEDS ORDERED: OLANZapine INTRAMUSCULAR 10 MG VIAL (S0166) IM STA (22:42)
[2018-10-11] MEDS ORDERED: clonazePAM 1 MG TAB PO ONE (23:00)
--- NOTE | 2018-10-11 23:12 | MHIR ---
General Date: Oct 11, 2018 Time Initiated: 22:45 Restraint Documentation Order/Evaluation FACE TO FACE: Yes PHYSICIAN ASSESSMENT: Patient was very agitated, very anxious, she was yelling, screaming, she was trying to call the [employer] on the phone, she was slamming the win dows at the medication room and at the Nurse's station. When i came to see her she was yelling, she seemed to be responding to internal stimuli, her eyes were opened wide opened. When she was put on restraints she kept yelling and she said her mother used to put her on restrints. REASON FOR RESTRAINT: Patient poses imminent danger of harming self or others: Patient is psychotic and visibly manic. She is angry/aggressive (verbally aggressive), agitated. Her judgment and impulse control are very poor at this moment. She is psychotic. She's a danger to self and others. DE-ESCALATION INTERVENTIONS ATTEMPTED BEFORE USE OF RESTRAINTS: Staff gave her support, tried to de escalate her, they offered her her PRN medication and in fact, gave her 100 mgs of Atarax. She didn't calm down and her emotions, out of control, kept escalating to the point where she had to be chemically and mechanically restrained. [MECHANICAL AND/OR CHEMICAL] RESTRAINTS USED: Mechanical and chemical. She was given 20 mgs of Zyprexa and 50 mgs of Benadryl IM. Didn't give her Ativan with Zyprexa because Zyprexa and Ativan interact and could very dangerous interactions. We offered Klonopin 2 mgs but she didn't accept it, we offered Diazepam 5 mgs Im and she refused. She will receive Thorazine 50 mgs IM LENGTH OF TIME ORDERED IN RESTRAINTS: 2 hours. WHEN TO DISCONTINUE RESTRAINTS: when she is not longer dangerous to self or others. Post evaluation of restraint due in 24 hours. LOBITO AGUERO MD Oct 11, 2018 23:12
[2018-10-11] MEDS ORDERED: chlorproMAZINE INJ 50MG/2ML AMP (J3230) IM ONE (23:15)
[2018-10-12] MEDS ORDERED: chlorproMAZINE INJ 50MG/2ML AMP (J3230) IM ONE (00:30)
[2018-10-12] MEDS ORDERED: LORazepam 2 MG/ML VIAL (J2060) IM ONE (00:30)
[2018-10-12] MEDS ORDERED: LORazepam 2 MG/ML VIAL (J2060) IM STA (06:05)
[2018-10-12] MEDS ORDERED: chlorproMAZINE INJ 50MG/2ML AMP (J3230) IM STA (06:05)
--- NOTE | 2018-10-12 06:41 | MHPR ---
General Date: Oct 12, 2018 Time: 22:00 Post-Restraint Evaluation THE OUTCOME OF THE RESTRAINT: The patient was calm and went to her room EFFECTIVENESS OF THE RESTRAINT: Mechanical and/or chemical: Positive ANY EVIDENCE THAT THE PATIENT WAS AFFECTED EMOTIONALLY: Not in a negative way. She received support, she was on a 1:1. She was abl to calm down ANY NEED FOR COUNSELING/ASSISTANCE: She has been receiving emotional support, she has not been left alone. CHANGES IN TREATMENT PLAN: She is going today to [facility] for continuation of treatment. RECOMMENDATIONS FOR FUTURE INCIDENTS: She's reacting like this because she is going to [facility] today, she is anxious foor that reason, so, mayb she will need more frequent PRN's if she would find herself in thi situation again. Part of all of this situation is behavioral. LOBITO AGUERO MD Oct 12, 2018 06:41
--- NOTE | 2018-10-12 06:49 | MHIR ---
General Date: Oct 12, 2018 Time Initiated: 06:00 Restraint Documentation Order/Evaluation FACE TO FACE: Yes PHYSICIAN ASSESSMENT: She is laying in bed in the restraining room, she is still loud, yelling, her spech is rapid and pressured, she is agitated, non cooperativ e, manic. REASON FOR RESTRAINT: Patient poses imminent danger of harming self or others: Patient woke up soaked and wet, she had urinated on herself, she kept telling staff it was sweat. She came out of her room, she refused toiletring nd hygiene. She was screaming, she tried to call the FBI as she had tried to do last night, she scared the rest of the patients because she keeps yelling, screaming. She has been spitting out the water she was offered. DE-ESCALATION INTERVENTIONS ATTEMPTED BEFORE USE OF RESTRAINTS: Re direction, support, PRN's, medications (she was coded at 10:45 pm), she is next to the Nurse station [MECHANICAL AND/OR CHEMICAL] RESTRAINTS USED: Both LENGTH OF TIME ORDERED IN RESTRAINTS: 240 minutes or less if she is in behavioral control WHEN TO DISCONTINUE RESTRAINTS: When the patient is no longer a threat to themselves or others Post evaluation of restraint due in 24 hours. LOBITO AGUERO MD Oct 12, 2018 06:49
[2018-10-12 08:00] VITALS: BP 126/79
[2018-10-12] MEDS: chlorproMAZINE 25 MG TAB (Q0161) PO SCH ×2 (09:00→13:00)
[2018-10-12] MEDS: LITHIUM CARBONATE 300MG/5ML(8MEQ/5ML)ORAL SOLUTION UDC PO SCH (09:00)
[2018-10-12] MEDS: **PENDING PPD ENTRY XX SCH (09:00)
--- NOTE | 2018-10-12 09:18 | MHDSPDOC ---
[facility] Discharge Summary Discharge Summary DATE OF ADMISSION: Sep 09, 2018 at 2:18 pm DATE OF DISCHARGE: Oct 12, 2018 DISCHARGE DIAGNOSES: Schizoaffective d/o Cannabis use d/o REASON FOR ADMISSION: Patient is a 28 -year-old , female, with a history of schizoaffective d/o just d/c [facility] last week after 1 month stay for wang with psychosis 09/02/18 who brought to ED yesterday by police under9.41 order after friend called police stating pt was cutting herself and threatening suicide. Pt ED record pt attempted to break into an appt and was then spotted walking down road with numerous bags, found outside storefront huddled in the the cold having no place to go. Per ED, when pt arrived she was floridly psychotic, bizarre, talking to self in room, calling staff numerous names, having flight of ideas, rapid speech, tangential, and easily distracted. Pt did except medications in ED when offered. Pt also spit water on the floor. Pt utox positive cannabis. [place] subtherapeutic at 0.20 when it was 0.97 upon d/c last week. Pt obviously noncompliant on her medication again and abusing substances. Pt seen today and appearing psychotic with fight of ideas, hyperverbal speech, and tangential thoughts. Delusional with pseudocyesis and stating she has undiagnosed epilepsy. Pt behaviorally reactive throwing water in med room. Agreeable to im zyprexa and ativan x1 when offered. Pt is a poor historian with poor ability to participate adequately with interview most likely due to wang/psychosis and medication noncompliance. History gathered from previous records. CONSULTANTS INVOLVED: none TEST RESULTS: lithium level 0.91. urine culture negative. CMP and CBC wnl. HIV and hep C and B screening negative. CK 42, liver profile wnl TREATMENT AND PROGRESS ON THE UNIT : Pt was admitted to [facility], seen for psychiatric assessment and started on thorazine 50mg qid, lithium 600mg liquid bid, haldol decanoate 100mg im q2wks, zyprexa 5mg qam and 10mg qhs. When pt refused routine meds she requested to take thorazine 100mg q6hr prn psychosis/agitation and ativan 2mg im Q6hr prn wang/agitation. Pt had to be given chemical and mechanical restraints multiple times during her admission for wang/psychosis/agitation. Pt was also very inconsistent with her compliance with medication at first then become more compliant on it. Pt's symptoms of wang and psychosis improved with medication treatment until just prior transfer when she had to be place in mechanical restraints and given chemical restraints twice that she tolerated well. Pt found her medications beneficial and tolerated them well. On day of discharge she remained reactive, hypomanic, responding to internal stimuli, and delusional. She was transferred to [facility] for long term treatment and stabilization. DISCHARGE ASSESSMENT: Pt is currently sedated after receiving chemical and mecha nical restraints when she had to be coded due to manic, psychosis, paranoia, and agitation. MENTAL STATUS EXAMINATION ON DISCHARGE: Pt is currently sedated after receiving chemical and mechanical restraints when she had to be coded due to manic, psychosis, paranoia, and agitation. MEDICATIONS ON DISCHARGE: zofran q4hr prn N/V haldol decanoate 100mg im q2wk given 09/22/18 thorazine 50mg qid lithium 600mg bid atarax 100mg q6hr prn anxiety trazodone 50mg qhs prn insomnia ativan 2mg q6hr prn anxiety agitation zyprexa zydis 5mg qam and 10mg qhs ZyPREXA ZYDIS 5 mg Q6HP PRN PO anxiety/agitation benadryl 50ml qhs PLAN/FOLLOWUP ARRANGEMENTS: Transfer to [facility] for long term treatment. The amount of time spent in the coordination of care for this patient was approximately 30 minutes. Vital Signs/I&Os Vital Signs Date Time Temp Pulse Resp B/P (MAP) Pulse Ox O2 Delivery O2 Flow Rate FiO2 10/12/18 08:00 94 18 126/79 10/10/18 18:14 99.0 10/07/18 07:55 Room Air Medications Scheduled Clonazepam (Klonopin) 0.5 Mg Tab, 0.5 MG PO TID for anxiety, #90 Diphenhydramine HCl (Diphenhydramine HCl) 50 Mg Cap, 50 MG PO TID for anxiety, #30 Haloperidol (Haloperidol) 5 Mg Tab, 5 MG PO TID for psychosis, #30 Haloperidol Decanoate (Haldol Decanoate 100) 100 Mg/Ml Inj, 100 MG IM QMONTH for psychosis, #1 Paliperidone Palmitate (Invega Sustenna) 234 Mg/1.5 Ml Inj, 234 MG IM QMONTH, (Reported) Paliperidone Palmitate (Invega Sustenna) 234 Mg/1.5 Ml Inj, 234 MG IM Q30D for psychosis, #1 [[place] Oral Solution] 300 MG/5 ML SOLN, 600 MG PO BID for mood, #1 Scheduled PRN Hydroxyzine HCl (Hydroxyzine HCl) 50 Mg Tab, 50 MG PO TIDP PRN for ANXIETY/AGITATION, #30 Trazodone HCl (Trazodone HCl) 50 Mg Tab, 50 MG PO QHSP PRN for INSOMNIA, #10 Miscellaneous Medications [Patient Comments] , (Reported) PATIENT IS POOR HISTORIAN. UNABLE AT THIS TIME TO HAVE A CONVERSATION ABOUT MEDICATION HISTORY Allergies Coded Allergies: Amoxicillin (Verified Allergy, Intermediate, Hives , 11/01/13) Sulfa Drugs (Verified Allergy, Mild, Rash, fever, vomiting, 11/01/13) Azithromycin (Verified Allergy, Unknown, 11/18/16) interacts with DUSTIN Ac DO Oct 12, 2018 9:18 am
[2018-10-12] MEDS: hydrOXYzine 50 MG TAB PO PRN (11:47)
[2018-10-12] MEDS: ACETAMINOPHEN TAB 650MG DOSE (2X325MG) PO PRN (11:48)
[2018-10-12] MEDS: CEPACOL LOZENGE PO PRN (11:48)
== END 2018-10-12 13:15 | DRG 885 ==
LOC: M ED 23:18 → M ED INP 09-09 14:18 → M PSY 09-09 14:55 → M ED INP 09-10 11:22 → M PSY 09-10 11:24
PROVIDERS: ADMIT Psychiatry & Neurology Psychiatry; ATTEND Psychiatry & Neurology Psychiatry
DX: F25.0 Schizoaffective disorder, bipolar type (principal); F12.10 Cannabis abuse, uncomplicated; Z79.899 Other long term (current) drug therapy; Z88.0 Allergy status to penicillin; Z88.1 Allergy status to other antibiotic agents; Z88.2 Allergy status to sulfonamides; Z91.5 Personal history of self-harm; Z91.14 Patient's other noncompliance with medication regimen

== ENCOUNTER 2019-04-25 09:56 | Inpatient (IN) | payer MEDICAID, MEDICARE ==
[~2019-04-25] VITALS: Ht 158.8 cm; Wt 61.4 kg
[~2019-04-25 09:56] MED LIST changes: -/DIVA50TA PO; +HYDR1TAB33 PO; -HYDRO50TAB PO; -TRAZ-160 PO; +TRAZ-252 PO; +TRAZ1TAB10 PO; -TRAZO50TA PO
[2019-04-25] MEDS ORDERED: LORA0.5T11 PO (10:29)
[2019-04-25] MEDS ORDERED: BENZ0.5T23 PO (10:29)
[2019-04-25] MEDS ORDERED: HALO10AM IM (10:29)
[2019-04-25] MEDS ORDERED: LITH600C PO (10:29)
[2019-04-25] MEDS ORDERED: LORazepam 2 MG TAB PO STA (11:36)
[2019-04-25 12:06] LABS: ACETAMINOPHEN LEVEL < 2.0 UG/ML (10.0-30.0); ALBUMIN 5.3 GM/DL (3.2-5.2); ALT/SGPT 32 U/L (12-78); BILIRUBIN,DIRECT 0.2 MG/DL (0.0-0.2); BILIRUBIN,TOTAL 1.3 MG/DL (0.2-1.0); BLOOD UREA NITROGEN 10 MG/DL (7-18); CARBON DIOXIDE LEVEL 16 MEQ/L (21-32); CHLORIDE LEVEL 101 MEQ/L (98-107); CREATININE FOR GFR 1.41 MG/DL (0.55-1.30); ETHYL ALCOHOL (ETHANOL) < 0.003 % (0.000-0.010); GLOMERULAR FILTRATION RATE 46.6 (>60); GLUCOSE, FASTING 87 MG/DL (70-100); POTASSIUM SERUM 4.9 MEQ/L (3.5-5.1); SALICYLATE LEVEL < 1.7 MG/DL (5.0-30.0); SODIUM LEVEL 134 MEQ/L (136-145); TOTAL PROTEIN 9.1 GM/DL (6.4-8.2)
[2019-04-25] MEDS ORDERED: HALOPERIDOL 10 MG TAB PO ONE (13:15)
[2019-04-25 15:07] LABS: AMPHETAMINES LEVEL URINE POSITIVE (NEGATIVE); BARBITURATES URINE NEGATIVE (NEGATIVE); BENZODIAZEPINES URINE NEGATIVE (NEGATIVE); CANNABINOIDS URINE NEGATIVE (NEGATIVE); COCAINE METABOLITE URINE POSITIVE (NEGATIVE); METHADONE URINE NEGATIVE (NEGATIVE); OPIATES URINE NEGATIVE (NEGATIVE); PHENCYCLIDINE URINE NEGATIVE (NEGATIVE)
[2019-04-25 15:42] LABS: HEMATOCRIT 40.2 % (36.0-47.0); HEMOGLOBIN 13.7 g/dl (12.0-15.5); MEAN CORPUSCULAR HEMOGLOBIN 28.8 pg (27.0-33.0); MEAN CORPUSCULAR HGB CONC 34.1 g/dl (32.0-36.5); MEAN CORPUSCULAR VOLUME 84.6 fl (80.0-96.0); PLATELET COUNT, AUTOMATED 351 10^3/uL (150-450); RED BLOOD COUNT 4.75 10^6/uL (4.00-5.40); WHITE BLOOD COUNT 13.1 10^3/uL (4.0-10.0)
[2019-04-25 16:07] LABS: URINE PREG TEST NEGATIVE (NEGATIVE)
[2019-04-25 19:49] LABS: FREE T4 0.93 NG/DL (0.76-1.46); LITHIUM LEVEL 0.39 MEQ/L (0.60-1.20)
[2019-04-26] MEDS ORDERED: BENA25CA4 PO (08:40)
[2019-04-26] MEDS ORDERED: COMMENTS (08:41)
[2019-04-26] MEDS ORDERED: LITHIUM CARBONATE 600 MG CAP PO ONE (10:45)
[2019-04-26] MEDS ORDERED: LORazepam 0.5 MG TAB PO ONE (10:45)
[2019-04-26] MEDS ORDERED: MOM 30ML SUSPENSION UDC PO PRN (15:45)
[2019-04-26] MEDS ORDERED: ACETAMINOPHEN TAB 650MG DOSE (2X325MG) PO PRN (15:45)
[2019-04-26] MEDS ORDERED: MAALOX 30 ML SUSP *UDC PO PRN (15:45)
[2019-04-26] MEDS ORDERED: traZODone 50 MG TAB PO PRN (15:45)
[2019-04-26 17:38] VITALS: BP 114/75
[2019-04-26] MEDS: LORazepam 0.5 MG TAB PO SCH (20:24)
[2019-04-26] MEDS: LITHIUM CARBONATE 300MG/5ML(8MEQ/5ML)ORAL SOLUTION UDC PO SCH (20:24)
--- NOTE | 2019-04-27 04:23 | ECGEPIP ---
[facility] - ED Test Date: 2019-04-25 Pat Name: BRANDON CUELLAR Department: Room: - Gender: Female Customer Service Administrator: JULIANNE : [id number] Requested By: Catalino Fry Order Number: [id number] Reading MD: Catalino Wilkerson Measurements Intervals [place] Rate: 105 P: 66 TX: 146 QRS: 39 QRSD: 84 T: 41 QT: 345 QTc: 457 Interpretive Statements SINUS TACHYCARDIA MODERATE T-WAVE ABNORMALITY, CONSIDER ANTERIOR ISCHEMIA Electronically Signed on 04-27-2019 4:23:29 EDT by Catalino Wilkerson
[2019-04-27] MEDS: LITHIUM CARBONATE 300MG/5ML(8MEQ/5ML)ORAL SOLUTION UDC PO SCH ×2 (09:41→20:34)
[2019-04-27] MEDS: LORazepam 0.5 MG TAB PO SCH ×2 (09:41→20:32)
[2019-04-27] MEDS: BENZTROPINE 0.5 MG TAB PO SCH (09:41)
--- NOTE | 2019-04-27 11:06 | MHHPEPDOC ---
[facility] History & Physical History and Physical Date of Service: 04/27/2019 Chief Complaint "I just had a seizure that's the only reason I'm here." History of Present Illness The patient a 28 year old woman with a fairly long and extensive history of psychosis presents to [facility] psychotic only 4 days after leaving long-term care at [place]. She was too psychotic to interview in the ER and she had been noticed that she was talking to herself and talking to a phone that was not on. She was still somewhat psychotic when I attempted to interview her on the unit and continually was intrusive about this provider's personal information and thus the interview was curtailed. However, she has presented much less agitated and pacing than she has in the past. She did have some episodes of pacing up and down the hallway, but nothing significant to how she's presented in the past. Review Of Systems Unable to complete a full and comprehensive review of systems due to the patient's thought process. Past Psychiatric History Long history of psychotic illness with multiple inpatient admissions recently left long-term treatment four days ago. She is currently on Haldol Decanoate on assisted outpatient treatment as well as lithium. Her lithium levels on admission were fairly low suggesting non-compliance. She currently follows with [facility]. Allergies Please see below. Family Psychiatric History Per chart. Social History The patient is homeless prior to admission. She was reportedly staying in different friend's home. She's never . Reportedly has children, but is not in contact with them. Has no legal history. Reportedly in the past had parents that were with no significant trauma reported. Reportedly per staff her parents are quite supportive of her. Denies any history of involvement. Substance Abuse History The patient tested positive for cocaine and methamphetamine and does have a significant problem with stimulant use in the past. It's unclear if she's used other substances before. Medical History Reportedly has a seizure history. However, it's unclear if this is pseudoseizures with no formal diagnosis, history of chronic bronchitis and back pain. Mental Status Examination General: Fair hygiene Speech: Pressured Thought processes: Tangential MSK: Mild pacing Thought content: Intrusive, mildly paranoid Abstract reasoning, and computation: Impaired Description of associations: Impaired Description of abnormal or psychotic thoughts: Denies any suicidal or homicidal ideation Judgment: Impaired Insight: Impaired Orientation: Alert and orientated 3 Cognition: Grossly normal Recent and remote memory: Intact Attention span and concentration: Intact Fund of knowledge: Adequate Mood: "fine" Affect: Flat with little reactivity Diagnoses Schizoaffective affective disorder, bipolar type, most current episode manic. Methamphetamine use disorder, severe. Cocaine use disorder, severe. Noncompliance with treatment. Assessment and Plan The patient a 28 year old woman with a long psychiatric history and poor compliance with treatment, presents with new emergent psychosis shortly after she had presented to the [facility] treatment facility and had left likely suggesting that she had stopped taking her lithium as she is on Haldol injectable. Disposition The patient will need further inpatient admission likely lasting longer than two midnights in order to treat her psychosis. Problem List Restarting home lithium dose monitoring levels and observation. Initial Treatment Plan 1. Patient was admitted on a 9.39 legal status. 2. Complete history was obtained. 3. With patients permission, family will be contacted and database will be expanded. 4. Patients medication regimen will be reviewed and changed accordingly. 5. Patient will be provided with protected environment. 6. Patient will be treated with individual, group, and milieu therapies. 7. Patient will receive supportive psych-education. 8. Discharge planning will commence immediately. 9. Outpatient follow-up treatment will be strongly recommended. 10. The initial treatment plan will focus initially on: Estimated Length Of Stay 4 days. Time Spent 15 minutes [id number] with 25 minutes coordination of care. Friday Vital Signs Vital Signs Date Time Temp Pulse Resp B/P (MAP) Pulse Ox O2 Delivery O2 Flow Rate FiO2 04/26/19 17:38 97.8 16 114/75 (88) 96 04/25/19 15:40 91 Room Air Medications Scheduled Benztropine Mesylate (Benztropine Mesylate) 0.5 Mg Tablet, 0.5 MG PO QHS, (Reported) Diphenhydramine HCl (Benadryl) 25 Mg Capsule, 25 MG PO QHS, (Reported) Haloperidol Decanoate (Haloperidol Decanoate) 100 Mg/1 Ml Vial, 3 ML IM MTHLY, (Reported) [place] Carbonate ([place] Carbonate) 600 Mg Capsule, 600 MG PO BID, (Reported) Lorazepam (Lorazepam) 0.5 Mg Tablet, 0.5 MG PO BID, (Reported) Miscellaneous Medications [Comments] , (Reported) PT UNABLE TO REPORT MEDICATIONS. MED LIST OBTAINED FROM [facility] AND [facility] Allergies Coded Allergies: Sulfa (Sulfonamide Antibiotics) (Verified Allergy, Severe, hives, 04/25/19) amoxicillin (Verified Allergy, Intermediate, rash, 04/25/19) azithromycin (Verified Allergy, Intermediate, rash, 04/25/19) LYRIC REID DO Apr 27, 2019 11:06
[2019-04-27 13:00] LABS: BASO % 0.4 % (0.0-1.0); EOS # 0.2 10^3/uL (0.0-0.5); EOS % 2.9 % (0.0-3.0); HEMOGLOBIN 13.3 g/dl (12.0-15.5); LYMPH # 1.8 10^3/uL (1.5-5.0); LYMPH % 23.8 % (24.0-44.0); MEAN CORPUSCULAR HEMOGLOBIN 28.8 pg (27.0-33.0); MEAN CORPUSCULAR HGB CONC 33.3 g/dl (32.0-36.5); MEAN CORPUSCULAR VOLUME 86.6 fl (80.0-96.0); MONO # 0.4 10^3/uL (0.0-0.8); MONO % 5.3 % (0.0-5.0); NEUTROPHILS # 5.1 10^3/uL (1.5-8.5); NEUTROPHILS % 67.3 % (36.0-66.0); PLATELET COUNT, AUTOMATED 340 10^3/uL (150-450); RED BLOOD COUNT 4.62 10^6/uL (4.00-5.40); WHITE BLOOD COUNT 7.6 10^3/uL (4.0-10.0)
[2019-04-27 13:33] LABS: ALBUMIN 3.9 GM/DL (3.2-5.2); ALT/SGPT 24 U/L (12-78); BILIRUBIN,TOTAL 0.3 MG/DL (0.2-1.0); BLOOD UREA NITROGEN 7 MG/DL (7-18); CARBON DIOXIDE LEVEL 27 MEQ/L (21-32); CHLORIDE LEVEL 104 MEQ/L (98-107); CREATININE FOR GFR 0.72 MG/DL (0.55-1.30); FREE THYROXINE INDEX 1.8 % (1.3-4.8); GLOMERULAR FILTRATION RATE > 60.0 (>60); GLUCOSE, FASTING 75 MG/DL (70-100); LITHIUM LEVEL 1.26 MEQ/L (0.60-1.20); POTASSIUM SERUM 4.3 MEQ/L (3.5-5.1); SODIUM LEVEL 136 MEQ/L (136-145); T UPTAKE 30 % (30-39); THYROXINE (T4) 6.1 UG/DL (4.5-12.0); TOTAL PROTEIN 6.5 GM/DL (6.4-8.2)
--- NOTE | 2019-04-27 13:41 | HPE ---
DATE OF ADMISSION: 04/27/2019 CHIEF COMPLAINT: Neck pain. HISTORY OF PRESENT ILLNESS: This is a 28-year-old female with a history of schizoaffective disorder, chronic neck and back pain, knee pain, attention deficit hyperactivity disorder (ADHD), posttraumatic stress disorder (PTSD), depression, bipolar disorder, admitted to the inpatient mental health unit, hospitalist service was called for evaluation of medical issues. Patient complains of neck pain without fever or chills. Able to touch her chin to her chest. No complaints of bilateral hand weakness, paresthesias. States that the pain is mostly in the upper neck without any changes in vision. Previously evaluated with MRI but refuses to see a pain sap ppm consultant, physical therapy and orthopaedic surgeon. States that tramadol and Tylenol #3 works with the pain but apparently admitted to inpatient psychiatric unit for schizoaffective disorder. Patient describes pain as a 5/6 stating it was worse when she turns her head to the left. She otherwise has had no weakness or sensory disturbances and is able to sleep at night. PAST MEDICAL HISTORY: Schizoaffective disorder. Bipolar disorder. Depression. Posttraumatic stress disorder (PTSD). Attention deficit hyperactivity disorder (ADHD) Chronic pain and back pain. PAST SURGICAL HISTORY: Tympanostomy tubes. Ear graft 1995. HOSPITAL MEDICATIONS: - benztropine - lithium - Ativan - trazodone - Milk of Magnesia - Mylanta - Tylenol SOCIAL HISTORY: Lives in [place]. Unemployed. Smokes 10 cigarettes a day. Has a 6-year-old son. Currently single. FAMILY HISTORY: Unknown. Mother and father alive and well. REVIEW OF SYSTEMS: Per history of present illness (HPI). 10-point systems otherwise negative. PHYSICAL EXAMINATION: Temperature 97.8, pulse 91, respiratory rate 16, blood pressure 114/75, 96% on room air. Generally, awake, alert, oriented times three. Answering questions appropriately. No use of accessory or respiratory muscles. Anicteric sclerae, no jaundice. Lungs are clear to auscultation. No wheezing, rales or rhonchi. Heart S1, S2 sinus rhythm. No murmurs, rubs or gallops. Abdomen is soft, nontender, nondistended. Extremities: No cyanosis, clubbing or pitting edema. The patient is able to flex and extend the neck without difficulty, able to gradually rotated without any changes. Motor function is 5/5 times 4 extremities. Gait is normal. LABORATORY DATA: White count 13, hemoglobin 13, hematocrit 40, platelet count 351. Sodium 134, potassium 4.5, chloride 101, bicarbonate 16, BUN 10, creatinine 1.41, glucose 87. Total bilirubin 1.3, direct bilirubin 0.2, AST 59, ALT 32, alkaline phosphatase 98, TSH 14.8, free T4 0.93. IMAGING STUDIES: None. ASSESSMENT/PLAN: 28-year-old female with a history of schizoaffective disorder, PTSD, bipolar disorder on chronic lithium, depression, ADHD, chronic neck and back pain who currently complains of neck pain with normal neurologic function. Found to have acute kidney injury on routine metabolic panel and some metabolic acidosis. CURRENT ISSUES ARE FOLLOWS: 1. Acute kidney injury: Recheck basic metabolic panel today. If worsening metabolic acidosis, may need to adjust lithium dosage and check lithium levels. Renally dose al medications. Encourage oral intake. May need transfer to medical/surgical floor for IV fluid hydration and renal ultrasound. 2. Elevated TSH: Will check thyroid profile. The patient is not exhibiting any hypothyroid complaints at this time. 3. Metabolic acidosis secondary to acute kidney injury: Encourage oral fluid intake. Recheck metabolic panel. 4. Schizoaffective disorder, PTSD, bipolar disorder: Management per psychiatrist. DISPOSITION: Await repeat blood testing. If worsening renal failure, metabolic acidosis, may need to adjust lithium level. Rule out toxicity and transfer to medical/surgical floor for IV fluids and renal ultrasound. [facility]
[2019-04-28] MEDS: BENZTROPINE 0.5 MG TAB PO SCH (08:33)
[2019-04-28] MEDS: LORazepam 0.5 MG TAB PO SCH ×2 (08:33→20:46)
[2019-04-28] MEDS: LITHIUM CARBONATE 300MG/5ML(8MEQ/5ML)ORAL SOLUTION UDC PO SCH ×2 (08:34→20:46)
--- NOTE | 2019-04-28 09:22 | MHIPNPDOC ---
[facility] Progress Note Progress Note Date of Service: 04/28/2019 History of Present Illness The patient a 28 year old woman with a fairly long and extensive history of psychosis presents to [facility] psychotic only 4 days after leaving long-term care at [place]. She was too psychotic to interview in the ER and she had been noticed that she was talking to herself and talking to a phone that was not on. She was still somewhat psychotic when I attempted to interview her on the unit and continually was intrusive about this provider's personal information and thus the interview was curtailed. However, she has presented much less agitated and pacing than she has in the past. She did have some episodes of pacing up and down the hallway, but nothing significant to how she's presented in the past. Interval History The patient is met with today and she is much improved. She is able to sit down in this provider's office, relayed that she's doing well on her lithium. She reports that she had stopped taking the oral lithium because she prefers things in a liquid form as she feels that it's easier for her to "digest." She generally has been very well behaved on this admission and she is known to this provider and many other staff, refused admissions where she has been much less well. She has had no major behavioral problems and has actually attended some groups. She is doing fairly well and reports that her medications are doing well for at this time. She describes that she does wish to eventually change off the Haldol as she reports that it does give her a reported rash, but she does not have at this time and sometimes report EPS. However, there does not appear to be any demonstration of these symptoms on current admission. Review Of Systems Denies any GI upset, nausea, vomiting, constipation, diarrhea. Denies any tremors or dizziness from her medications at this time. Psychotherapy None on this visit. Vital Signs Reviewed. Mental Status Examination General: Well dressed with good hygiene Speech: Spontaneous and fluid Thought processes: Linear and logical MSK: Smooth and coordinated gait, no signs of tremors or involuntary orofacial movements Thought content: Future orientated Abstract reasoning, and computation: Improved. Description of associations: Improved. Description of abnormal or psychotic thoughts: Denies any suicidal or homicidal ideation. Denies any auditory or visual hallucinations. Does not appear to be responding to internal stimuli. Some mild chronic overvalued ideas, but no overt statements of paranoid ideation. Judgment: fair Insight: Chronically poor. Orientation: Alert and orientated 3 Cognition: Grossly normal Recent and remote memory: Intact Attention span and concentration: Intact Fund of knowledge: Adequate Mood: "okay" Affect: Euthymic with a full range Diagnoses Schizoaffective affective disorder, bipolar type, most current episode manic. Methamphetamine use disorder, severe. Cocaine use disorder, severe. Noncompliance with treatment. Assessment and Plan The patient appears to be making some progress. We'll get a trough level of lithium with a decrease to 300 mg in the morning and 600 mg at night of oral solution as the patient reports taking them. We'll need to inquire whether AOT requires her to live at [facility] prior to discharge. However, she is approaching stability and has been fairly well behaved on this admission. Disposition We'll need further time to contact the patient's AOT coordinator, ascertain the parts that need to be put in place for a discharge, and ensure that she's in compliance with her outpatient treatment. Time Spent 15 minutes face to face. Friday Vital Signs Vital Signs Date Time Temp Pulse Resp B/P (MAP) Pulse Ox O2 Delivery O2 Flow Rate FiO2 04/26/19 17:38 97.8 16 114/75 (88) 96 04/25/19 15:40 91 Room Air Laboratory Data 24H Labs Laboratory Tests 2 04/27/19 12:37: Immature Granulocyte % (Auto) 0.3, White Blood Count 7.6, Red Blood Count 4.62, Hemoglobin 13.3, Hematocrit 40.0, Mean Corpuscular Volume 86.6, Mean Corpuscular Hemoglobin 28.8, Mean Corpuscular Hemoglobin Concent 33.3, Red Cell Distribution Width 13.1, Platelet Count 340, Neutrophils (%) (Auto) 67.3H, Lymphocytes (%) (Auto) 23.8L, Monocytes (%) (Auto) 5.3H, Eosinophils (%) (Auto) 2.9, Basophils (%) (Auto) 0.4, Neutrophils # (Auto) 5.1, Lymphocytes # (Auto) 1.8, Monocytes # (Auto) 0.4, Eosinophils # (Auto) 0.2, Basophils # (Auto) 0.0, Nucleated Red Blood Cells % (auto) 0.0, Anion Gap 5L, Glomerular Filtration Rate > 60.0, Blood Urea Nitrogen 7, Creatinine 0.72, Sodium Level 136, Potassium Level 4.3, Chloride Level 104, Carbon Dioxide Level 27, Calcium Level 9.0, Aspartate Amino Transf (AST/SGOT) 17, Alanine Aminotransferase (ALT/SGPT) 24, Alkaline Phosphatase 71, Total Bilirubin 0.3#, Total Protein 6.5#, Albumin 3.9#, Albumin/Globulin Ratio 1.50, Thyroid Stimulating Hormone (TSH) 29.200H, Free Thyroxine Index 1.8, Thyroxine (T4) 6.1, Triiodothyronine (T3) Uptake 30, [place] Level 1.26H CBC/BMP Laboratory Tests 04/27/19 12:37 Red Blood Count 4.62, Mean Corpuscular Volume 86.6, Mean Corpuscular Hemoglobin 28.8, Mean Corpuscular Hemoglobin Concent 33.3, Red Cell Distribution Width 13.1, Neutrophils (%) (Auto) 67.3 H, Lymphocytes (%) (Auto) 23.8 L, Monocytes (%) (Auto) 5.3 H, Eosinophils (%) (Auto) 2.9, Basophils (%) (Auto) 0.4, Neutrophils # (Auto) 5.1, Lymphocytes # (Auto) 1.8, Monocytes # (Auto) 0.4, Eosinophils # (Auto) 0.2, Basophils # (Auto) 0.0, Calcium Level 9.0, Aspartate Amino Transf (AST/SGOT) 17, Alanine Aminotransferase (ALT/SGPT) 24, Alkaline Phosphatase 71, Total Bilirubin 0.3 #, Total Protein 6.5 #, Albumin 3.9 # Current Medications Current Medications Medications (Trade) Dose Ordered Sig/Ruth Route PRN Reason Start Time Stop Time Status Last Admin Dose Admin Acetaminophen (Tylenol Tab) 650 mg Q6HP PRN PO HEADACHE or DISCOMFORT 04/26/19 15:45 Al Hydrox/Mg Hydrox/Simethicone (Mylanta) 30 ml Q4HP PRN PO HEARTBURN/INDIGESTION 04/26/19 15:45 Benztropine Mesylate (Cogentin) 0.5 mg DAILY PO 04/27/19 09:00 04/28/19 08:33 Home Med (Med Rec Complete!) ASDIRECTED XX 04/26/19 08:45 04/26/19 08:46 DC [place] Carbonate (Eskalith Oral Solution) 600 mg BID PO 04/26/19 21:00 04/28/19 08:34 Lorazepam (Ativan) 0.5 mg BID PO 04/26/19 21:00 04/28/19 08:33 Lorazepam (Ativan) 2 mg STAT STAT PO 04/25/19 11:36 04/25/19 11:37 DC 04/25/19 12:19 Magnesium Hydroxide (Milk Of Magnesia) 30 ml DAILYPRN PRN PO CONSTIPATION 04/26/19 15:45 Trazodone HCl (Desyrel) 50 mg QHSP PRN PO INSOMNIA 04/26/19 15:45 Allergies Coded Allergies: Sulfa (Sulfonamide Antibiotics) (Verified Allergy, Severe, hives, 04/25/19) amoxicillin (Verified Allergy, Intermediate, rash, 04/25/19) azithromycin (Verified Allergy, Intermediate, rash, 04/25/19) LYRIC REID DO Apr 28, 2019 09:22
[2019-04-28] MEDS: chlorproMAZINE INJ 50MG/2ML AMP (J3230) IM PRN (15:46)
[2019-04-29] MEDS: LORazepam 0.5 MG TAB PO SCH ×2 (07:57→20:05)
[2019-04-29] MEDS: BENZTROPINE 0.5 MG TAB PO SCH (07:57)
[2019-04-29] MEDS ORDERED: LITHIUM CARBONATE 300MG/5ML(8MEQ/5ML)ORAL SOLUTION UDC PO SCH ×2 (09:00→21:00)
--- NOTE | 2019-04-29 12:40 | MHIPNPDOC ---
[facility] Progress Note Progress Note Date of Service: 04/29/2019 History of Present Illness The patient, a 28-year-old woman, with a fairly long and extensive history of psychosis presents to [facility] psychotic only 4 days after leaving long-term care at [place]. She was too psychotic to interview in the ER and she had been noticed that she was talking to herself and talking to a phone that was not on. She was still somewhat psychotic when I attempted to interview her on the unit and continually was intrusive about this provider's personal information and thus the interview was curtailed. However, she has presented much less agitated and pacing than she has in the past. She did have some episodes of pacing up and down the hallway, but nothing significant to how she's presented in the past. Interval History The patient described she is doing well on the lithium. Her lithium trough level was 1, which is ideal. She was decreased to 300 this morning, however, she describes that she is prescribed the 600 as an outpatient and her levels are likely within normal range as she was on the 600 twice a day with the lithium at 1. No major behavioral problems, has attended some groups, very pleasant by nursing report, which is a significant improvement from how she has been on previous admissions. She does not appear to be endorsing any bizarre ideation and is interested in when she might be able to go. She has been pleasant and applicable. Denies any problems with her Haldol or lithium at this time. Review Of Systems Denies any GI upset, nausea, vomiting, constipation, diarrhea. Denies any rashes currently. Denies tremors or dizziness. Psychotherapy None on this visit. Vital Signs Reviewed. Mental Status Examination General: Well dressed with good hygiene Speech: Spontaneous and fluid Thought processes: Linear and logical MSK: Smooth and coordinated gait, no signs of tremors or involuntary orofacial movements Thought content: Future orientated Abstract reasoning, and computation: Improved. Description of associations: Improved. Description of abnormal or psychotic thoughts: Denies any suicidal or homicidal ideation. Denies any auditory or visual hallucinations. Does not appear to be responding to internal stimuli. Some mild chronic overvalued ideas, but no overt statements of paranoid ideation. Judgment: fair Insight: Chronically poor. Orientation: Alert and orientated 3 Cognition: Grossly normal Recent and remote memory: Intact Attention span and concentration: Intact Fund of knowledge: Adequate Mood: "okay" Affect: Euthymic with a full range Diagnoses Schizoaffective affective disorder, bipolar type, most current episode manic. Methamphetamine use disorder, severe. Cocaine use disorder, severe. Noncompliance with treatment. Assessment and Plan The patient will be resumed on her 600 mg of oral liquid lithium as it has done well. She is on Haldol decanoate and is on the AOT. We will ascertain whether patient needs to be in [facility] by court order or not. However, she is approaching psychiatric stability and will likely not benefit from further hospitalization. Disposition Discharge tomorrow if stability is maintained. Time Spent Ten minutes [id number]. T Vital Signs Vital Signs Date Time Temp Pulse Resp B/P (MAP) Pulse Ox O2 Delivery O2 Flow Rate FiO2 04/26/19 17:38 97.8 16 114/75 (88) 96 04/25/19 15:40 91 Room Air Current Medications Current Medications Medications (Trade) Dose Ordered Sig/Ruth Route PRN Reason Start Time Stop Time Status Last Admin Dose Admin Acetaminophen (Tylenol Tab) 650 mg Q6HP PRN PO HEADACHE or DISCOMFORT 04/26/19 15:45 Al Hydrox/Mg Hydrox/Simethicone (Mylanta) 30 ml Q4HP PRN PO HEARTBURN/INDIGESTION 04/26/19 15:45 Benztropine Mesylate (Cogentin) 0.5 mg DAILY PO 04/27/19 09:00 04/29/19 07:57 Chlorpromazine HCl (Thorazine) 100 mg Q8HP PRN IM AGITATION 04/28/19 15:15 04/28/19 15:46 Home Med (Med Rec Complete!) ASDIRECTED XX 04/26/19 08:45 04/26/19 08:46 DC [place] Carbonate (Eskalith Oral Solution) 300 mg DAILY PO 04/29/19 09:00 04/29/19 11:43 [place] Carbonate (Eskalith Oral Solution) 600 mg BID PO 04/26/19 21:00 04/29/19 11:27 DC 04/28/19 20:46 [place] Carbonate (Eskalith Oral Solution) 600 mg QHS PO 04/29/19 21:00 Lorazepam (Ativan) 0.5 mg BID PO 04/26/19 21:00 04/29/19 07:57 Lorazepam (Ativan) 2 mg STAT STAT PO 04/25/19 11:36 04/25/19 11:37 DC 04/25/19 12:19 Magnesium Hydroxide (Milk Of Magnesia) 30 ml DAILYPRN PRN PO CONSTIPATION 04/26/19 15:45 Trazodone HCl (Desyrel) 50 mg QHSP PRN PO INSOMNIA 04/26/19 15:45 Allergies Coded Allergies: Sulfa (Sulfonamide Antibiotics) (Verified Allergy, Severe, hives, 04/25/19) amoxicillin (Verified Allergy, Intermediate, rash, 04/25/19) azithromycin (Verified Allergy, Intermediate, rash, 04/25/19) LYRIC REID DO Apr 29, 2019 12:40
[2019-04-29] MEDS: chlorproMAZINE INJ 50MG/2ML AMP (J3230) IM PRN (15:07)
[2019-04-29] MEDS: LITHIUM CARBONATE 300MG/5ML(8MEQ/5ML)ORAL SOLUTION UDC PO SCH (20:05)
--- NOTE | 2019-04-30 09:32 | MHDSPDOC ---
[facility] Discharge Summary Vital Signs/I&Os Vital Signs Date Time Temp Pulse Resp B/P (MAP) Pulse Ox O2 Delivery O2 Flow Rate FiO2 04/26/19 17:38 97.8 16 114/75 (88) 96 04/25/19 15:40 91 Room Air Laboratory Data Labs 24H Laboratory Tests 2 04/29/19 12:31: [place] Level 1.07 Medications Scheduled Benztropine Mesylate (Benztropine Mesylate) 0.5 Mg Tablet, 0.5 MG PO QHS, (Reported) Diphenhydramine HCl (Benadryl) 25 Mg Capsule, 25 MG PO QHS, (Reported) Haloperidol Decanoate (Haloperidol Decanoate) 100 Mg/1 Ml Vial, 3 ML IM MTHLY, (Reported) [place] Carbonate ([place] Carbonate) 600 Mg Capsule, 600 MG PO BID, (Reported) Lorazepam (Lorazepam) 0.5 Mg Tablet, 0.5 MG PO BID, (Reported) Miscellaneous Medications [Comments] , (Reported) PT UNABLE TO REPORT MEDICATIONS. MED LIST OBTAINED FROM [facility] Allergies Coded Allergies: Sulfa (Sulfonamide Antibiotics) (Verified Allergy, Severe, hives, 04/25/19) amoxicillin (Verified Allergy, Intermediate, rash, 04/25/19) azithromycin (Verified Allergy, Intermediate, rash, 04/25/19) LYRIC REID DO Apr 30, 2019 09:32
[2019-04-30] MEDS: BENZTROPINE 0.5 MG TAB PO SCH (09:56)
[2019-04-30] MEDS: LORazepam 0.5 MG TAB PO SCH ×2 (09:56→20:19)
[2019-04-30] MEDS: LITHIUM CARBONATE 300MG/5ML(8MEQ/5ML)ORAL SOLUTION UDC PO SCH ×2 (09:56→20:20)
[2019-04-30] MEDS: chlorproMAZINE INJ 50MG/2ML AMP (J3230) IM PRN (10:49)
--- NOTE | 2019-04-30 19:19 | MHIPNPDOC ---
[facility] Progress Note Progress Note Date of Service: 04/30/2019 History of Present Illness The patient, a 28-year-old woman, with a fairly long and extensive history of psychosis presents to [facility] psychotic only 4 days after leaving long-term care at [place]. She was too psychotic to interview in the ER and she had been noticed that she was talking to herself and talking to a phone that was not on. She was still somewhat psychotic when I attempted to interview her on the unit and continually was intrusive about this provider's personal information and thus the interview was curtailed. However, she has presented much less agitated and pacing than she has in the past. She did have some episodes of pacing up and down the hallway, but nothing significant to how she's presented in the past. Interval History The patient is met with today. She was initially planned to be sent home. However, she reports that she is mandate to go to [facility] due to the outpatient assisted outpatient treatment program. 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 A meeting set on Friday for patient's treatment team. Review Of Systems Patient denies any side effects from medications at this time. Psychotherapy None on this visit. Vital Signs Reviewed. Mental Status Examination General: Well dressed with good hygiene Speech: Spontaneous and fluid Thought processes: Linear and logical MSK: Smooth and coordinated gait, no signs of tremors or involuntary orofacial movements Thought content: Future orientated Abstract reasoning, and computation: Intact Description of associations: Intact Description of abnormal or psychotic thoughts: Denies any suicidal or homicidal ideation. Denies any auditory or visual hallucinations. Does not appear to be responding to internal stimuli. Does not appear to be endorsing any bizarre or paranoid ideation. Judgment: fair Insight: fair Orientation: Alert and orientated 3 Cognition: Grossly normal Recent and remote memory: Intact Attention span and concentration: Intact Fund of knowledge: Adequate Mood: "okay" Affect: Euthymic with a full range Diagnoses Schizoaffective disorder, bipolar type, most current episode manic. Methamphetamine use disorder, severe. Cocaine use disorder, severe. Noncompliance with treatment. Assessment and Plan Continue medications as below, meeting on Friday to determine disposition. Disposition Friday disposition will be determined. Time Spent 15 minutes [id number]. Friday Vital Signs Vital Signs Date Time Temp Pulse Resp B/P (MAP) Pulse Ox O2 Delivery O2 Flow Rate FiO2 04/26/19 17:38 97.8 16 114/75 (88) 96 04/25/19 15:40 91 Room Air Current Medications Current Medications Medications (Trade) Dose Ordered Sig/Ruth Route PRN Reason Start Time Stop Time Status Last Admin Dose Admin Acetaminophen (Tylenol Tab) 650 mg Q6HP PRN PO HEADACHE or DISCOMFORT 04/26/19 15:45 Al Hydrox/Mg Hydrox/Simethicone (Mylanta) 30 ml Q4HP PRN PO HEARTBURN/INDIGESTION 04/26/19 15:45 Benztropine Mesylate (Cogentin) 0.5 mg DAILY PO 04/27/19 09:00 04/30/19 09:56 Chlorpromazine HCl (Thorazine) 100 mg Q8HP PRN IM AGITATION 04/28/19 15:15 04/30/19 10:49 Home Med (Med Rec Complete!) ASDIRECTED XX 04/26/19 08:45 04/26/19 08:46 DC [place] Carbonate (Eskalith Oral Solution) 300 mg DAILY PO 04/29/19 09:00 04/29/19 17:40 DC 04/29/19 11:43 [place] Carbonate (Eskalith Oral Solution) 600 mg BID PO 04/26/19 21:00 04/29/19 11:27 DC 04/28/19 20:46 [place] Carbonate (Eskalith Oral Solution) 600 mg BID PO 04/29/19 21:00 04/30/19 09:56 [place] Carbonate (Eskalith Oral Solution) 600 mg QHS PO 04/29/19 21:00 04/29/19 21:00 DC Lorazepam (Ativan) 0.5 mg BID PO 04/26/19 21:00 04/30/19 09:56 Lorazepam (Ativan) 2 mg STAT STAT PO 04/25/19 11:36 04/25/19 11:37 DC 04/25/19 12:19 Magnesium Hydroxide (Milk Of Magnesia) 30 ml DAILYPRN PRN PO CONSTIPATION 04/26/19 15:45 Trazodone HCl (Desyrel) 50 mg QHSP PRN PO INSOMNIA 04/26/19 15:45 Allergies Coded Allergies: Sulfa (Sulfonamide Antibiotics) (Verified Allergy, Severe, hives, 04/25/19) amoxicillin (Verified Allergy, Intermediate, rash, 04/25/19) azithromycin (Verified Allergy, Intermediate, rash, 04/25/19) LYRIC REID DO Apr 30, 2019 19:19
[2019-05-01] MEDS: LORazepam 0.5 MG TAB PO SCH ×2 (09:16→21:52)
[2019-05-01] MEDS: BENZTROPINE 0.5 MG TAB PO SCH (09:16)
[2019-05-01] MEDS: LITHIUM CARBONATE 300MG/5ML(8MEQ/5ML)ORAL SOLUTION UDC PO SCH ×2 (09:16→21:52)
[2019-05-01] MEDS: chlorproMAZINE INJ 50MG/2ML AMP (J3230) IM PRN (13:47)
[2019-05-01 16:31] VITALS: BP 117/70
[2019-05-02 06:57] VITALS: BP 98/54
[2019-05-02] MEDS: LITHIUM CARBONATE 300MG/5ML(8MEQ/5ML)ORAL SOLUTION UDC PO SCH ×2 (09:56→21:13)
[2019-05-02] MEDS: BENZTROPINE 0.5 MG TAB PO SCH (09:56)
[2019-05-02] MEDS: LORazepam 0.5 MG TAB PO SCH ×2 (09:56→21:12)
[2019-05-02 16:10] VITALS: BP 123/75
[2019-05-03 06:30] VITALS: BP 107/69
[2019-05-03] MEDS: BENZTROPINE 0.5 MG TAB PO SCH (08:28)
[2019-05-03] MEDS: LITHIUM CARBONATE 300MG/5ML(8MEQ/5ML)ORAL SOLUTION UDC PO SCH ×2 (08:28→21:32)
[2019-05-03] MEDS: LORazepam 0.5 MG TAB PO SCH (08:28)
--- NOTE | 2019-05-03 10:02 | MHIPNPDOC ---
[facility] Progress Note Progress Note Date of Service: 05/03/2019 History of Present Illness The patient, a 28-year-old woman, with a fairly long and extensive history of psychosis presents to [facility] psychotic only 4 days after leaving long-term care at [place]. She was too psychotic to interview in the ER and she had been noticed that she was talking to herself and talking to a phone that was not on. She was still somewhat psychotic when I attempted to interview her on the unit and continually was intrusive about this provider's personal information and thus the interview was curtailed. However, she has presented much less agitated and pacing than she has in the past. She did have some episodes of pacing up and down the hallway, but nothing significant to how she's presented in the past. Interval History The patient is met with today. She reports that she's disappointed at the [facility] meeting and AOT meeting was cancelled due to re ported staff sickness. She reports that she wishes to go. Staff report she has been doing very well. She's amenable, pleasant, and has made no behavioral problems. She describes her thought process as clear, although she describes she is not pleased about being forced to go to TLS. However, she does remain on AOT. She was amenable to the explanation and demonstrated no behavioral problems. Review Of Systems The patient denies any side effects from her medications and reports she is doing "well." Psychotherapy None on this visit. Vital Signs Reviewed. Mental Status Examination General: Well dressed with good hygiene Speech: Spontaneous and fluid Thought processes: Linear and logical MSK: Smooth and coordinated gait, no signs of tremors or involuntary orofacial movements Thought content: Future orientated Abstract reasoning, and computation: Intact Description of associations: Intact Description of abnormal or psychotic thoughts: Denies any suicidal or homicidal ideation. Denies any auditory or visual hallucinations. Does not appear to be responding to internal stimuli. Does not appear to be endorsing any bizarre or paranoid ideation. Judgment: fair Insight: fair Orientation: Alert and orientated 3 Cognition: Grossly normal Recent and remote memory: Intact Attention span and concentration: Intact Fund of knowledge: Adequate Mood: "okay" Affect: Euthymic with a full range Diagnoses Schizo-affective disorder, bipolar type, most current episode manic. Methamphetamine use disorder, severe. Cocaine use disorder, severe. Noncompliance with treatment. Assessment and Plan The patient will be continued on medications below. Disposition planning is in process with meeting tomorrow with AOT and [facility] services to ascertain a discharge plan. Disposition Will continue to advocate for discharge tomorrow, meeting with AOT. Time Spent 20 minutes [id number]. Friday Vital Signs Vital Signs Date Time Temp Pulse Resp B/P (MAP) Pulse Ox O2 Delivery O2 Flow Rate FiO2 05/03/19 06:30 97.0 86 14 107/69 (82) Current Medications Current Medications Medications (Trade) Dose Ordered Sig/Ruth Route PRN Reason Start Time Stop Time Status Last Admin Dose Admin Acetaminophen (Tylenol Tab) 650 mg Q6HP PRN PO HEADACHE or DISCOMFORT 04/26/19 15:45 Al Hydrox/Mg Hydrox/Simethicone (Mylanta) 30 ml Q4HP PRN PO HEARTBURN/INDIGESTION 04/26/19 15:45 Benztropine Mesylate (Cogentin) 0.5 mg DAILY PO 04/27/19 09:00 05/03/19 08:28 Chlorpromazine HCl (Thorazine) 100 mg Q8HP PRN IM AGITATION 04/28/19 15:15 05/01/19 13:47 Home Med (Med Rec Complete!) ASDIRECTED XX 04/26/19 08:45 04/26/19 08:46 DC [employer] Carbonate (Eskalith Oral Solution) 300 mg DAILY PO 04/29/19 09:00 04/29/19 17:40 DC 04/29/19 11:43 [place] [place] [employer] Carbonate (Eskalith Oral Solution) 600 mg BID PO 04/26/19 21:00 04/29/19 11:27 DC 04/28/19 20:46 [place] Carbonate (Eskalith Oral Solution) 600 mg BID PO 04/29/19 21:00 05/03/19 08:28 [place] Carbonate (Eskalith Oral Solution) 600 mg QHS PO 04/29/19 21:00 04/29/19 21:00 DC Lorazepam (Ativan) 0.5 mg BID PO 04/26/19 21:00 05/03/19 08:28 Lorazepam (Ativan) 2 mg STAT STAT PO 04/25/19 11:36 04/25/19 11:37 DC 04/25/19 12:19 Magnesium Hydroxide (Milk Of Magnesia) 30 ml DAILYPRN PRN PO CONSTIPATION 04/26/19 15:45 Miscellaneous (Unresolved Clarification Entry) SEE LABEL COMMENTS DAILY XX 05/03/19 09:00 Trazodone HCl (Desyrel) 50 mg QHSP PRN PO INSOMNIA 04/26/19 15:45 Allergies Coded Allergies: Sulfa (Sulfonamide Antibiotics) (Verified Allergy, Severe, hives, 04/25/19) amoxicillin (Verified Allergy, Intermediate, rash, 04/25/19) azithromycin (Verified Allergy, Intermediate, rash, 04/25/19) LYRIC REID DO May 03, 2019 10:02
[2019-05-04] MEDS: BENZTROPINE 0.5 MG TAB PO SCH (08:30)
[2019-05-04] MEDS: LITHIUM CARBONATE 300MG/5ML(8MEQ/5ML)ORAL SOLUTION UDC PO SCH (08:31)
--- NOTE | 2019-05-04 09:29 | MHDSPDOC ---
[facility] Discharge Summary Discharge Summary DATE OF ADMISSION: Apr 26, 2019 at 15:39 DATE OF DISCHARGE: 05/04/19 Date of Service: 05/04/2019 Diagnoses Schizo-affective disorder, bipolar type, most current episode manic. Methamphetamine use disorder, severe. Cocaine use disorder, severe. Noncompliance with treatment. History of Present Illness The patient, a 28-year-old woman, with a fairly long and extensive history of psychosis presents to [facility] psychotic only 4 days after leaving long-term care at [place]. She was too psychotic to interview in the ER and she had been noticed that she was talking to herself and talking to a phone that was not on. She was still somewhat psychotic when I attempted to interview her on the unit and continually was intrusive about this provider's personal information and thus the interview was curtailed. However, she has presented much less agitated and pacing than she has in the past. She did have some episodes of pacing up and down the hallway, but nothing significant to how she's presented in the past. Consultants Involved Hospitalist/PCP screening Treatment and Progress On The Unit The patient was admitted to the inpatient unit and restarted on her home medications. Her lithium level was fairly low suggesting that she was not compliant with it. After restarting her home lithium with 600 mg BID of the liquid form, as she has preferred liquid in the past, she reports that she made significant improvement, was pleasant and amenable much to the surprise of the treatment team, as she has previously been seen on the unit before in a much more decompensated state. After monitoring, her lithium level was taken and was in the therapeutic range. Subsequently, discharge planning was undertaken as she was not demonstrating any suicidal or homicidal ideation, was in behavioral control. Despite some mildly bizarre ideation, she did not meet involuntary criteria and declined for the voluntary. However, due to being on assisted ou tpatient treatment, she was required to go back to TLS, however, after meeting with AOT and TLS, the patient did agree to return to TLS contention upon further reconsideration as she was not happy there. She was discharged in good patti as she no longer met involuntary criteria due to the proponents of the information above. Discharge Assessment The patient, a 28-year-old woman, with a long history of mental illness on assisted outpatient treatment presents in a fairly behaviorally controlled state. She was brought in under her assisted outpatient treatment as she had left the [facility] a condition of her assisted outpatient treatment and was brought on a pickup order. She was restarted on her home meds and did fairly well. She's on injectable Haldol that has done well for her in the past. She at times will demonstrate some mild bizarre thoughts, however, they were quickly not apparent after her admission. Mental Status Examination General: Well dressed with good hygiene Speech: Spontaneous and fluid Thought processes: Linear and logical MSK: Smooth and coordinated gait, no signs of tremors or involuntary orofacial movements Thought content: Future orientated Abstract reasoning, and computation: Intact Description of associations: Intact Description of abnormal or psychotic thoughts: Denies any suicidal or homicidal ideation. Denies any auditory or visual hallucinations. Does not appear to be responding to internal stimuli. Does not appear to be endorsing any bizarre or paranoid ideation. Judgment: fair Insight: fair Orientation: Alert and orientated 3 Cognition: Grossly normal Recent and remote memory: Intact Attention span and concentration: Intact Fund of knowledge: Adequate Mood: "okay" Affect: Euthymic with a full range Follow Up The social work team worked during the predischarge meeting in order to evaluate for further issues of lethality address them fully before discharge. They worked on safety planning with the patient's family members in order to ensure that the patient will have a safe and effective discharge. Time Spent The amount of time spent in the coordination of care for this patient was approximately 60 minutes. Friday Vital Signs/I&Os Vital Signs Date Time Temp Pulse Resp B/P (MAP) Pulse Ox O2 Delivery O2 Flow Rate FiO2 05/03/19 06:30 97.0 86 14 107/69 (82) Medications Scheduled Benztropine Mesylate (Benztropine Mesylate) 0.5 Mg Tablet, 0.5 MG PO QHS, (Reported) Diphenhydramine HCl (Benadryl) 25 Mg Capsule, 25 MG PO QHS, (Reported) Haloperidol Decanoate (Haloperidol Decanoate) 100 Mg/1 Ml Vial, 3 ML IM MTHLY, (Reported) [place] Carbonate ([place] Carbonate) 600 Mg Capsule, 600 MG PO BID, (Reported) Lorazepam (Lorazepam) 0.5 Mg Tablet, 0.5 MG PO BID, (Reported) Miscellaneous Medications [Comments] , (Reported) PT UNABLE TO REPORT MEDICATIONS. MED LIST OBTAINED FROM [facility] Allergies Coded Allergies: Sulfa (Sulfonamide Antibiotics) (Verified Allergy, Severe, hives, 04/25/19) amoxicillin (Verified Allergy, Intermediate, rash, 04/25/19) azithromycin (Verified Allergy, Intermediate, rash, 04/25/19) LYRIC REID DO May 04, 2019 09:29
== END 2019-05-04 10:05 | disposition home or self-care (01) | DRG 885 ==
LOC: M ED 09:56 → M ED INP 04-26 15:39 → M PSY 04-26 17:32
PROVIDERS: ADMIT Psychiatry & Neurology Psychiatry; ATTEND Psychiatry & Neurology Addiction Medicine
DX: F25.0 Schizoaffective disorder, bipolar type (principal); F14.20 Cocaine dependence, uncomplicated; F15.20 Other stimulant dependence, uncomplicated; N17.9 Acute kidney failure, unspecified; R94.6 Abnormal results of thyroid function studies; Z79.899 Other long term (current) drug therapy; Z91.14 Patient's other noncompliance with medication regimen; Z59.0 Homelessness; J42 Unspecified chronic bronchitis; M54.9 Dorsalgia, unspecified; Z91.19 Patient's noncompliance with other medical treatment and regimen; Z88.0 Allergy status to penicillin; Z88.2 Allergy status to sulfonamides; Z88.1 Allergy status to other antibiotic agents; F32.9 Major depressive disorder, single episode, unspecified; F43.10 Post-traumatic stress disorder, unspecified; F90.9 Attention-deficit hyperactivity disorder, unspecified type; F17.210 Nicotine dependence, cigarettes, uncomplicated; N25.89 Other disorders resulting from impaired renal tubular function

== ENCOUNTER → 2019-06-16 | Outpatient (REF) | payer MEDICARE ==
[~2019-06-16] MED LIST changes: +BENA25CA4 PO; +BENZ0.5T23 PO; +COMMENTS; +LITH600C PO; +LORA0.5T11 PO
== END ==
LOC: M LABDRAWC 16:34
PROVIDERS: ATTEND Nurse Practitioner Psychiatric/Mental Health
DX: F31.2 Bipolar disorder, current episode manic severe with psychotic features (principal)

== ENCOUNTER 2019-08-04 16:25 | Emergency (ER) | payer MEDICARE ==
[~2019-08-04 16:25] MED LIST changes: +CLON0.5T2; -CLON0.5T8; +LEVO100T5 PO
[2019-08-04 17:04] LABS: HEMATOCRIT 43.6 % (36.0-47.0); MEAN CORPUSCULAR HEMOGLOBIN 28.9 pg (27.0-33.0); MEAN CORPUSCULAR HGB CONC 32.1 g/dl (32.0-36.5); MEAN CORPUSCULAR VOLUME 90.1 fl (80.0-96.0); PLATELET COUNT, AUTOMATED 440 10^3/uL (150-450); RED BLOOD COUNT 4.84 10^6/uL (4.00-5.40); WHITE BLOOD COUNT 9.6 10^3/uL (4.0-10.0)
[2019-08-04 17:19] LABS: HCG, SERUM QUALITATIVE NEGATIVE (NEGATIVE)
[2019-08-04 17:19] LABS: AMPHETAMINES LEVEL URINE NEGATIVE (NEGATIVE); BARBITURATES URINE NEGATIVE (NEGATIVE); BENZODIAZEPINES URINE NEGATIVE (NEGATIVE); CANNABINOIDS URINE NEGATIVE (NEGATIVE); COCAINE METABOLITE URINE NEGATIVE (NEGATIVE); METHADONE URINE NEGATIVE (NEGATIVE); OPIATES URINE NEGATIVE (NEGATIVE); PHENCYCLIDINE URINE NEGATIVE (NEGATIVE)
[2019-08-04 17:37] LABS: ACETAMINOPHEN LEVEL < 2.0 UG/ML (10.0-30.0); ALBUMIN 4.5 GM/DL (3.2-5.2); ALT/SGPT 18 U/L (12-78); BILIRUBIN,DIRECT 0.2 MG/DL (0.0-0.2); BILIRUBIN,TOTAL 0.5 MG/DL (0.2-1.0); BLOOD UREA NITROGEN 5 MG/DL (7-18); CALCIUM LEVEL 9.6 MG/DL (8.5-10.1); CARBON DIOXIDE LEVEL 22 MEQ/L (21-32); CHLORIDE LEVEL 107 MEQ/L (98-107); CREATININE FOR GFR 0.86 MG/DL (0.55-1.30); ETHYL ALCOHOL (ETHANOL) < 0.003 % (0.000-0.010); GLOMERULAR FILTRATION RATE > 60.0 (>60); GLUCOSE, FASTING 90 MG/DL (70-100); LITHIUM LEVEL 0.65 MEQ/L (0.60-1.20); POTASSIUM SERUM 3.7 MEQ/L (3.5-5.1); SALICYLATE LEVEL 1.9 MG/DL (5.0-30.0); SODIUM LEVEL 138 MEQ/L (136-145); TOTAL PROTEIN 8.1 GM/DL (6.4-8.2)
[2019-08-04] MEDS ORDERED: LORazepam 1 MG TAB PO STA (18:08)
[2019-08-04] MEDS ORDERED: diphenhydrAMINE 25 MG CAP PO ONE (18:15)
[2019-08-04] MEDS ORDERED: LITH600C PO (23:09)
[2019-08-04] MEDS ORDERED: HALO10AM IM (23:09)
[2019-08-04] MEDS ORDERED: BENZ0.5T23 PO (23:09)
[2019-08-04] MEDS ORDERED: BENA25CA4 PO (23:09)
[2019-08-04] MEDS ORDERED: SYNT100T PO (23:09)
[2019-08-05 08:13] LABS: FREE T4 1.31 NG/DL (0.76-1.46)
[2019-08-05 09:15] VITALS: BP 130/75
== END 2019-08-05 09:19 ==
LOC: M ED 16:25
DX: F29 Unspecified psychosis not due to a substance or known physiological condition (principal); F25.0 Schizoaffective disorder, bipolar type; F31.9 Bipolar disorder, unspecified; Z79.899 Other long term (current) drug therapy; Z88.2 Allergy status to sulfonamides; Z88.1 Allergy status to other antibiotic agents
CPT/HCPCS: 80048; 80076; 80178; 80307; 84439; 84443; 84703; 85027; 99285; G0480

== ENCOUNTER 2019-09-02 13:04 | Emergency (ER) | payer MEDICARE ==
[~2019-09-02 13:04] MED LIST changes: -LORA0.5T11 PO; +LORA0.5T5 PO; +SYNT100T PO
[2019-09-02] MEDS ORDERED: TRAZ-252 (14:37)
[2019-09-02] MEDS ORDERED: HYDR50TA70 (14:37)
[2019-09-02] MEDS ORDERED: HALO5TA PO (14:37)
[2019-09-02 17:27] LABS: HEMATOCRIT 45.6 % (36.0-47.0); HEMOGLOBIN 14.8 g/dl (12.0-15.5); MEAN CORPUSCULAR HEMOGLOBIN 28.7 pg (27.0-33.0); MEAN CORPUSCULAR HGB CONC 32.5 g/dl (32.0-36.5); MEAN CORPUSCULAR VOLUME 88.4 fl (80.0-96.0); PLATELET COUNT, AUTOMATED 380 10^3/uL (150-450); RED BLOOD COUNT 5.16 10^6/uL (4.00-5.40); WHITE BLOOD COUNT 8.4 10^3/uL (4.0-10.0)
[2019-09-02 18:23] LABS: HCG, SERUM QUALITATIVE NEGATIVE (NEGATIVE)
[2019-09-02 18:54] LABS: ALT/SGPT 16 U/L (12-78); BLOOD UREA NITROGEN 5 MG/DL (7-18); CALCIUM LEVEL 9.5 MG/DL (8.5-10.1); CARBON DIOXIDE LEVEL 20 MEQ/L (21-32); CHLORIDE LEVEL 107 MEQ/L (98-107); CREATININE FOR GFR 0.73 MG/DL (0.55-1.30); GLOMERULAR FILTRATION RATE > 60.0 (>60); GLUCOSE, FASTING 92 MG/DL (70-100); POTASSIUM SERUM 4.2 MEQ/L (3.5-5.1); SODIUM LEVEL 139 MEQ/L (136-145)
[2019-09-02 18:55] LABS: ACETAMINOPHEN LEVEL < 2.0 UG/ML (10.0-30.0); ALBUMIN 4.6 GM/DL (3.2-5.2); BILIRUBIN,DIRECT < 0.1 MG/DL (0.0-0.2); BILIRUBIN,TOTAL 0.4 MG/DL (0.2-1.0); ETHYL ALCOHOL (ETHANOL) < 0.003 % (0.000-0.010); TOTAL PROTEIN 7.8 GM/DL (6.4-8.2)
[2019-09-02 18:56] LABS: SALICYLATE LEVEL < 1.7 MG/DL (5.0-30.0)
[2019-09-02] MEDS ORDERED: haloperidoL 5 MG TAB PO ONE (20:00)
[2019-09-02] MEDS ORDERED: LITHIUM CARBONATE 600 MG CAP PO ONE (20:00)
[2019-09-02] MEDS ORDERED: TRAZ-252 PO (21:28)
[2019-09-02] MEDS ORDERED: HYDR50TA70 PO (21:28)
[2019-09-02] MEDS ORDERED: LITH300T2 PO ×2 (21:34)
[2019-09-02 21:53] LABS: LITHIUM LEVEL 0.65 MEQ/L (0.60-1.20)
[2019-09-02 22:40] VITALS: BP 140/79
[2019-09-03 01:05] LABS: AMPHETAMINES LEVEL URINE NEGATIVE (NEGATIVE); BARBITURATES URINE NEGATIVE (NEGATIVE); BENZODIAZEPINES URINE NEGATIVE (NEGATIVE); CANNABINOIDS URINE NEGATIVE (NEGATIVE); COCAINE METABOLITE URINE NEGATIVE (NEGATIVE); METHADONE URINE NEGATIVE (NEGATIVE); OPIATES URINE NEGATIVE (NEGATIVE); PHENCYCLIDINE URINE NEGATIVE (NEGATIVE)
[2019-09-03 02:18] LABS: APPEARANCE, URINE CLEAR (CLEAR); BACTERIA, URINE AUTO 2+ (NEGATIVE); BILIRUBIN, URINE AUTO NEGATIVE (NEGATIVE); BLOOD, URINE BLOOD NEGATIVE (NEGATIVE); COLOR, URINE STRAW (YELLOW); GLUCOSE, URINE (UA) AUTO NEGATIVE (NEGATIVE); KETONE, URINE AUTO TRACE mg/dL (NEGATIVE); LEUKOCYTE ESTERASE, URINE AUTO NEGATIVE (NEGATIVE); NITRITE, URINE AUTO NEGATIVE (NEGATIVE); PROTEIN, URINE AUTO NEGATIVE (NEGATIVE); RBC, URINE AUTO 0 /HPF (0-3); SPECIFIC GRAVITY URINE AUTO 1.004 (1.002-1.035); SQUAMOUS EPITHELIAL CELL UR AU 2 /HPF (0-6); UROBILINOGEN, URINE AUTO 0.2 mg/dL (0.0-2.0); WBC, URINE AUTO 0 /HPF (0-3)
== END 2019-09-03 08:59 ==
LOC: M ED 13:04
DX: F29 Unspecified psychosis not due to a substance or known physiological condition (principal); F31.9 Bipolar disorder, unspecified; F43.10 Post-traumatic stress disorder, unspecified; F90.9 Attention-deficit hyperactivity disorder, unspecified type; G89.29 Other chronic pain; Z79.899 Other long term (current) drug therapy; Z88.0 Allergy status to penicillin; Z88.1 Allergy status to other antibiotic agents; Z88.2 Allergy status to sulfonamides; F17.210 Nicotine dependence, cigarettes, uncomplicated
CPT/HCPCS: 36415; 80048; 80076; 80178; 80307; 81001; 84443; 84703; 85027; 99284; G0480

== ENCOUNTER 2019-12-22 19:16 | Inpatient (IN) | payer MEDICARE, MEDICAID ==
[~2019-12-22] VITALS: Ht 157.5 cm; Wt 75.8 kg
[~2019-12-22 19:16] MED LIST changes: +HYDR50TA70; +HYDR50TA70 PO; +LITH300T2 PO; +TRAZ-252
[2019-12-22 21:19] LABS: HEMATOCRIT 38.4 % (36.0-47.0); HEMOGLOBIN 12.9 g/dl (12.0-15.5); MEAN CORPUSCULAR HEMOGLOBIN 28.9 pg (27.0-33.0); MEAN CORPUSCULAR HGB CONC 33.6 g/dl (32.0-36.5); MEAN CORPUSCULAR VOLUME 85.9 fl (80.0-96.0); PLATELET COUNT, AUTOMATED 257 10^3/uL (150-450); RED BLOOD COUNT 4.47 10^6/uL (4.00-5.40); WHITE BLOOD COUNT 6.3 10^3/uL (4.0-10.0)
[2019-12-22] MEDS ORDERED: diphenhydrAMINE 50MG/ML VIAL (J1200) IM STA (21:28)
[2019-12-22 21:33] LABS: HCG, SERUM QUALITATIVE NEGATIVE (NEGATIVE)
[2019-12-22 21:53] LABS: ACETAMINOPHEN LEVEL < 2.0 UG/ML (10.0-30.0); ALBUMIN 3.7 GM/DL (3.2-5.2); ALT/SGPT 26 U/L (12-78); BILIRUBIN,DIRECT 0.2 MG/DL (0.0-0.2); BILIRUBIN,TOTAL 0.4 MG/DL (0.2-1.0); BLOOD UREA NITROGEN 5 MG/DL (7-18); CALCIUM LEVEL 8.5 MG/DL (8.5-10.1); CARBON DIOXIDE LEVEL 22 MEQ/L (21-32); CHLORIDE LEVEL 109 MEQ/L (98-107); CREATININE FOR GFR 0.64 MG/DL (0.55-1.30); ETHYL ALCOHOL (ETHANOL) < 0.003 % (0.000-0.010); GLOMERULAR FILTRATION RATE > 60.0 (>60); GLUCOSE, FASTING 91 MG/DL (70-100); LITHIUM LEVEL < 0.20 MEQ/L (0.60-1.20); SALICYLATE LEVEL < 1.7 MG/DL (5.0-30.0); SODIUM LEVEL 140 MEQ/L (136-145); TOTAL PROTEIN 6.7 GM/DL (6.4-8.2)
[2019-12-22 22:29] LABS: AMPHETAMINES LEVEL URINE NEGATIVE (NEGATIVE); BARBITURATES URINE NEGATIVE (NEGATIVE); BENZODIAZEPINES URINE NEGATIVE (NEGATIVE); CANNABINOIDS URINE NEGATIVE (NEGATIVE); COCAINE METABOLITE URINE POSITIVE (NEGATIVE); METHADONE URINE NEGATIVE (NEGATIVE); OPIATES URINE NEGATIVE (NEGATIVE); PHENCYCLIDINE URINE NEGATIVE (NEGATIVE)
[2019-12-23] MEDS ORDERED: MAALOX 30 ML SUSP *UDC PO PRN (01:00)
[2019-12-23] MEDS ORDERED: MOM 30ML SUSPENSION UDC PO PRN (01:00)
[2019-12-23 03:31] VITALS: BP 129/78
[2019-12-23] MEDS ORDERED: diphenhydrAMINE 50MG/ML VIAL (J1200) IM ONE (09:45)
--- NOTE | 2019-12-23 09:56 | MHHPEPDOC ---
[facility] History & Physical History and Physical DATE OF ADMISSION: December 23, 2019 at 00:52 New Patient Zandra Lee MRN: N/A Date of : N/A Date of Service: 12/23/2019 Chief Complaint "I am niche." History of Present Illness The patient, a 29-year-old woman with a well known history of schizophrenia presents after using cocaine and various synthetic drugs after leaving her senior care. She is quite distorted and psychotic, unable to engage in any meaningful interview other than to ask for injections. Psychosocial information is taken from previous assessments and updated as appropriate. Review Of Systems Unable to engage due to mental status. Past Psychiatric History Has a history of reported schizoaffective bipolar type, recently left [facility] for [facility] and psychosis after being admitted in June 2019. No known suicidal attempts. Follows up at both [facility] in [facility]. Previously on Haldol, lithium and Cogentin. Allergies Please see below. Family Psychiatric History No notable history of family problems. Social History Patient grew up with parents. Reported that patient is quite intelligent and highly educated. No notable trauma history . Lives in the [facility]. Has a college education, currently on disability, supported by mother and brother. No known legal problems and is currently single with an infant son living with patient's mother who has custody. Substance Abuse History Has a notable history of nicotine, amphetamine and cocaine use. Medical History Non-contributory. Mental Status Examination General: Disheveled. Speech: Rapid. Thought processes: Tangential. MSK: Restlessness. Thought content: Bizarre and paranoid. Abstract reasoning, and computation: Impaired. Description of associations: Impaired. Description of abnormal or psychotic thoughts: Paranoid thoughts. Judgment: Impaired. Insight: Impaired. Orientation: Alert and orientated 3 Cognition: Grossly normal Recent and remote memory: Intact Attention span and concentration: Impaired. Fund of knowledge: Adequate Mood: "okay" Affect: Flat. Diagnoses Schizoaffective disorder, bipolar type, most recent episode manic. Cocaine use disorder, severe. Methamphetamine use disorder, severe. Tobacco use disorder, unspecified. Cannabis use disorder, unspecified. Assessment and Plan Schizoaffective disorder: We will attempt to resume patient on Prolixin and lithium 10 mg BID and 150 mg twice daily of oral medicine of which he is willing to take. The patient is focused on trying to get injectable meds. Cocaine/methamphetamine/cannabis use disorder: Recommend outpatient treatment. Tobacco use disorder: Offer nicotine replacement. Disposition Patient will need to be retained on an involuntary stay as he is still fairly psychotic and distorted. Problem List 1. Altered thoughts. 2. Substance use. Initial Treatment Plan 1. Patient was admitted on a 9.39 legal status. 2. Complete history was obtained. 3. With patients permission, family will be contacted and database will be expanded. 4. Patients medication regimen will be reviewed and changed accordingly. 5. Patient will be provided with protected environment. 6. Patient will be treated with individual, group, and milieu therapies. 7. Patient will receive supportive psych-education. 8. Discharge planning will commence immediately. 9. Outpatient follow-up treatment will be strongly recommended. 10. The initial treatment plan will focus initially on: Estimated Length Of Stay 3 days. Time Spent 70 minutes, greater than 50% spent on counseling/coordination of care. Vital Signs Vital Signs Date Time Temp Pulse Resp B/P (MAP) Pulse Ox O2 Delivery O2 Flow Rate FiO2 12/23/19 03:31 97.5 115 16 129/78 (95) 96 Room Air Laboratory Data 24H Labs Laboratory Tests 2 12/22/19 20:41: Nucleated Red Blood Cells % (auto) 0.0, Anion Gap 9, Glomerular Filtration Rate > 60.0, Calcium Level 8.5, Total Bilirubin 0.4, Direct Bilirubin 0.2, Aspartate Amino Transf (AST/SGOT) 22, Alanine Aminotransferase (ALT/SGPT) 26, Alkaline Phosphatase 70, Total Protein 6.7, Albumin 3.7, Albumin/Globulin Ratio 1.23, Thyroid Stimulating Hormone (TSH) 1.410, Human Chorionic Gonadotropin, Qual NEGATIVE, Salicylates Level < 1.7L, Urine Opiates Screen NEGATIVE, Urine Methadone Screen NEGATIVE, Acetaminophen Level < 2.0L, Urine Barbiturates Screen NEGATIVE, Urine Phencyclidine Screen NEGATIVE, Urine Amphetamines Screen NEGATIVE, Urine Benzodiazepines Screen NEGATIVE, Rafael Hernandez Level < 0.20L, Urine Cocaine Metabolite Screen POSITIVEH, Urine Cannabinoids Screen NEGATIVE, Ethyl Alcohol Level < 0.003 CBC/BMP Laboratory Tests 12/22/19 20:41 Medications Scheduled Benztropine Mesylate (Benztropine Mesylate) 0.5 Mg Tablet, 0.5 MG PO QHS, (Reported) Haloperidol (Haloperidol) 5 Mg Tablet, 5 MG PO BID, (Reported) Haloperidol Decanoate (Haloperidol Decanoate) 100 Mg/1 Ml Vial, 300 MG IM QMONTH, (Reported) Levothyroxine Sodium (Synthroid) 100 Mcg Tablet, 100 MCG PO DAILY, (Reported) [place] Carbonate ([place] Carbonate) 300 Mg Tablet, 300 MG PO DAILY, (Reported) [place] Carbonate ([place] Carbonate) 300 Mg Tablet, 600 MG PO QPM, (Reported) Trazodone HCl (Trazodone HCl) 50 Mg Tablet, 50 MG PO QHS, (Reported) Scheduled PRN Hydroxyzine HCl (Hydroxyzine HCl) 50 Mg Tablet, 50 MG PO Q4H PRN for ANXIETY/AGITATION, (Reported) Allergies Coded Allergies: Sulfa (Sulfonamide Antibiotics) (Verified Allergy, Severe, hives, 04/25/19) amoxicillin (Verified Allergy, Intermediate, rash, 04/25/19) azithromycin (Verified Allergy, Intermediate, rash, 04/25/19) levothyroxine (Verified Allergy, Unknown, 12/22/19) pt states it makes her collapse LYRIC REID DO December 23, 2019 09:56
[2019-12-23] MEDS: LITHIUM CARBONATE 300MG/5ML(8MEQ/5ML)ORAL SOLUTION UDC PO SCH ×2 (12:14→20:29)
[2019-12-23] MEDS ORDERED: chlorproMAZINE INJ 50MG/2ML AMP (J3230) IM ONE (13:00)
[2019-12-23] MEDS ORDERED: diphenhydrAMINE 25MG CAP PO PRN (15:00)
[2019-12-23 16:25] VITALS: BP 128/81
--- NOTE | 2019-12-23 19:58 | HPEPDOC ---
General Date of Admission December 23, 2019 at 00:52 Date of Service: December 23, 2019 Chief Complaint The patient is a 29-year-old female admitted with a reason for visit of Unspecified Psychotic Disorder. History of Present Illness The patient a 29 year old woman with a long psychiatric history and poor compliance with treatment, presents with emergent psychosis. When I saw the patient, she denied any fever or chills, palpitations, shortness of breath, diarrhea or dysuria. Patient stated that she had multiple seizures in the past and she was diagnosed with epilepsy, but I did not find any records about it. Home Medications Scheduled Benztropine Mesylate (Benztropine Mesylate) 0.5 Mg Tablet, 0.5 MG PO QHS, (Reported) Haloperidol (Haloperidol) 5 Mg Tablet, 5 MG PO BID, (Reported) Haloperidol Decanoate (Haloperidol Decanoate) 100 Mg/1 Ml Vial, 300 MG IM QMONTH, (Reported) Levothyroxine Sodium (Synthroid) 100 Mcg Tablet, 100 MCG PO DAILY, (Reported) [place] Carbonate ([place] Carbonate) 300 Mg Tablet, 300 MG PO DAILY, (Reported) [place] Carbonate ([place] Carbonate) 300 Mg Tablet, 600 MG PO QPM, (Reported) Trazodone HCl (Trazodone HCl) 50 Mg Tablet, 50 MG PO QHS, (Reported) Scheduled PRN Hydroxyzine HCl (Hydroxyzine HCl) 50 Mg Tablet, 50 MG PO Q4H PRN for ANXIETY/AGITATION, (Reported) Allergies Coded Allergies: Sulfa (Sulfonamide Antibiotics) (Verified Allergy, Severe, hives, 04/25/19) amoxicillin (Verified Allergy, Intermediate, rash, 04/25/19) azithromycin (Verified Allergy, Intermediate, rash, 04/25/19) levothyroxine (Verified Allergy, Unknown, 12/22/19) pt states it makes her collapse Past Medical History Medical History Schizoaffective disorder. Bipolar depression. PTSD. ADHD. Chronic neck and back pain. Surgical History Tympanostomy tubes. Ear graft. Family History I personally reviewed family history and found not pertinent Social History * Smoker: current smoker Alcohol: heavy Drugs: other ( positive for cocaine and methamphetamine ) A-FIB/CHADSVASC A-FIB History Current/History of A-Fib/PAF?: No Current PO Anticoag Therapy: No Review of Systems Constitutional: Denies: Chills, Fever, Night Sweats Eyes: Denies: Pain, Vision change ENT: Denies: Head Aches, Ear Pain, Dysphagia Skin: Denies: Rash, Lesions, Breakdown Pulmonary: Denies: Dyspnea, Cough Cardiovascular: Denies: Chest Pain, Palpitations, Orthopnea, Paroxysmal Noc. Dyspnea, Lt Headedness Gastrointestinal: Denies: Nausea, Vomiting, Abdominal Pain, Diarrhea Genitourinary: Denies: Dysuria, Frequency, Incontinence, Retention Hematologic: Denies: Bruising, Bleeding Excessively Endocrine: Denies: Polyphagia Musculoskeletal: Denies: Neck Pain, Back Pain, Joint Pain, Muscle Pain, Spasms Neurological: Denies: Weakness, Numbness, Change in speech, Confusion Psych: Reports: Anxiety; Denies: Mood Normal Physical Examination General Exam: Positive: Alert, Cooperative Eye Exam: Positive: PERRLA ENT Exam: Positive: Atraumatic Neck Exam: Positive: Supple; Negative: JVD Chest Exam: Positive: Clear to auscultation Heart Exam: Positive: Rate Normal Telemetry: Positive: No significant arrhythmia Abdomen Exam: Positive: Normal bowel sounds Extremity Exam: Negative: Clubbing, Cyanosis Skin Exam: Positive: Nl turgor and temperature Neuro Exam: Positive: Normal Gait, Strength at 5/5 X4 ext, Cranial Nerves 3-12 NL Psych Exam: Positive: Anxiety Vital Signs Vital Signs Date Time Temp Pulse Resp B/P (MAP) Pulse Ox O2 Delivery O2 Flow Rate FiO2 12/23/19 16:25 98.9 86 16 128/81 (97) 12/23/19 03:31 96 Room Air Laboratory Data Labs 24H Laboratory Tests 2 12/22/19 20:41: Nucleated Red Blood Cells % (auto) 0.0, Anion Gap 9, Glomerular Filtration Rate > 60.0, Calcium Level 8.5, Total Bilirubin 0.4, Direct Bilirubin 0.2, Aspartate Amino Transf (AST/SGOT) 22, Alanine Aminotransferase (ALT/SGPT) 26, Alkaline Phosphatase 70, Total Protein 6.7, Albumin 3.7, Albumin/Globulin Ratio 1.23, Thyroid Stimulating Hormone (TSH) 1.410, Human Chorionic Gonadotropin, Qual NEGATIVE, Salicylates Level < 1.7L, Urine Opiates Screen NEGATIVE, Urine Met hadone Screen NEGATIVE, Acetaminophen Level < 2.0L, Urine Barbiturates Screen NEGATIVE, Urine Phencyclidine Screen NEGATIVE, Urine Amphetamines Screen NEGATIVE, Urine Benzodiazepines Screen NEGATIVE, [place] Level < 0.20L, Urine Cocaine Metabolite Screen POSITIVEH, Urine Cannabinoids Screen NEGATIVE, Ethyl Alcohol Level < 0.003 CBC/BMP Laboratory Tests 12/22/19 20:41 Assessment/Plan This is a 29-year-old female with history of schizoaffective disorder, bipolar disorder, PTSD on chronic lithium, depression ADHD, chronic neck and back pain, admitted to the psych unit for unspecified psychosis. Problems (1) Psychosis Status: Acute Problem Text: Deferred to psychiatrist for adjustment of medications. (2) Hypothyroidism Status: Chronic Problem Text: Most likely secondary to lithium therapy Continue Synthroid Plan / VTE VTE Prophylaxis Ordered?: No VTE Exclusion Mechanical Proph: Low Risk for VTE RAHUL PARKER DO December 23, 2019 19:58
[2019-12-24] MEDS: LEVOTHYROXINE 100MCG TABLET (0.1MG) PO SCH ×2 (05:57→06:00)
--- NOTE | 2019-12-24 09:14 | MHIPNPDOC ---
[facility] Progress Note Progress Note Inpatient Progress Note Zandra Lee MRN: N/A Date of : N/A Date of Service: 12/24/2019 History of Present Illness The patient, a 29-year-old woman with a well known history of schizophrenia presents after using cocaine and various synthetic drugs after leaving her intermediate. She is quite distorted and psychotic, unable to engage in any meaningful interview other than to ask for injections. Psychosocial information is taken from previous assessments and updated as appropriate. Interval History The patient is attempt to met with today. She is still quite bizarre and unable to be interviewed, primarily asking for injections. She generally engages in little else. She has been quite bizarre, only taking medication by injections. Very rapid in speech, unable to be effectively redirected. Review Of Systems Unable to determine due to mental status. Psychotherapy None on this visit. Vital Signs Reviewed. Mental Status Examination General: Disheveled. Speech: Rapid. Thought processes: Tangential. MSK: Restlessness. Thought content: Bizarre and paranoid. Abstract reasoning, and computation: Impaired. Description of associations: Impaired. Description of abnormal or psychotic thoughts: Paranoid thoughts. Judgment: Impaired. Insight: Impaired. Orientation: Alert and orientated 3 Cognition: Grossly normal Recent and remote memory: Intact Attention span and concentration: Impaired. Fund of knowledge: Adequate Mood: "okay" Affect: Flat. Diagnoses Schizoaffective disorder, bipolar type, most recent episode manic. Cocaine use disorder, severe. Methamphetamine use disorder, severe. Tobacco use disorder, unspecified. Cannabis use disorder, unspecified. Assessment and Plan Schizoaffective disorder: We will attempt to resume patient on Prolixin and lithium 10 mg BID and 150 mg twice daily of oral medicine of which he is willing to take. The patient is focused on trying to get injectable meds. Cocaine/methamphetamine/cannabis use disorder: Recommend outpatient treatment. Tobacco use disorder: Offer nicotine replacement. Disposition Patient will need to be retained on an involuntary stay as he is still fairly psychotic and distorted. Time Spent 15 minutes. Friday Vital Signs Vital Signs Date Time Temp Pulse Resp B/P (MAP) Pulse Ox O2 Delivery O2 Flow Rate FiO2 12/23/19 16:25 98.9 86 16 128/81 (97) 12/23/19 03:31 96 Room Air Current Medications Current Medications Medications (Trade) Dose Ordered Sig/Ruth Route PRN Reason Start Time Stop Time Status Last Admin Dose Admin Acetaminophen (Tylenol Tab) 650 mg Q6HP PRN PO HEADACHE or DISCOMFORT 12/23/19 01:00 Al Hydrox/Mg Hydrox/Simethicone (Mylanta) 30 ml Q4HP PRN PO HEARTBURN/INDIGESTION 12/23/19 01:00 Diphenhydramine HCl (Benadryl) 50 mg Q4HP PRN PO ANXIETY/AGITATION 12/23/19 15:00 Diphenhydramine HCl (Benadryl) 50 mg STAT STAT IM 12/22/19 21:28 12/22/19 21:30 DC 12/22/19 22:03 Fluphenazine HCl (Prolixin) 10 mg BID PO 12/23/19 09:00 Levothyroxine Sodium (Synthroid) 100 mcg DAILY@06 PO 12/24/19 06:00 [place] Carbonate (Eskalith Oral Solution) 300 mg BID PO 12/23/19 09:00 12/23/19 20:29 Magnesium Hydroxide (Milk Of Magnesia) 30 ml DAILYPRN PRN PO CONSTIPATION 12/23/19 01:00 Trazodone HCl (Desyrel) 50 mg QHSP PRN PO INSOMNIA 12/23/19 01:00 Allergies Coded Allergies: Sulfa (Sulfonamide Antibiotics) (Verified Allergy, Severe, hives, 04/25/19) amoxicillin (Verified Allergy, Intermediate, rash, 04/25/19) azithromycin (Verified Allergy, Intermediate, rash, 04/25/19) levothyroxine (Verified Allergy, Unknown, 12/22/19) pt states it makes her collapse LYRIC REID DO December 24, 2019 09:14
[2019-12-24] MEDS: LITHIUM CARBONATE 300MG/5ML(8MEQ/5ML)ORAL SOLUTION UDC PO SCH ×2 (09:33→20:19)
[2019-12-24 16:06] VITALS: BP 132/84
[2019-12-24] MEDS ORDERED: chlorproMAZINE INJ 50MG/2ML AMP (J3230) IM ONE (20:45)
[2019-12-25] MEDS: LEVOTHYROXINE 100MCG TABLET (0.1MG) PO SCH (06:00)
[2019-12-25] MEDS: LITHIUM CARBONATE 300MG/5ML(8MEQ/5ML)ORAL SOLUTION UDC PO SCH ×2 (09:37→20:06)
[2019-12-25] MEDS ORDERED: chlorproMAZINE INJ 50MG/2ML AMP (J3230) IM ONE ×2 (13:45→20:30)
[2019-12-26] MEDS: LEVOTHYROXINE 100MCG TABLET (0.1MG) PO SCH (06:00)
[2019-12-26] MEDS: LITHIUM CARBONATE 300MG/5ML(8MEQ/5ML)ORAL SOLUTION UDC PO SCH ×2 (09:05→20:03)
--- NOTE | 2019-12-26 09:57 | MHIPN ---
DATE: 12/25/2019 The patient today tells me that she is doing fine. She basically states that there is nothing wrong with her. That she just needs to get her Thorazine because it helps her with seizures, posttraumatic stress disorder (PTSD) and panic attacks. She has actually been requesting to get Thorazine to receive it intramuscular (IM). She says that this is the only way the medication works for her. She is refusing to take her Prolixin because she says that her insurance will not approve the Prolixin. She is taking her lithium. MENTAL STATUS EXAMINATION: This patient is alert and oriented times three. Eye contact is good. She has pressured speech and flight of ideas. She says her mood is fine. Affect appears to be stable at this point. She is denying suicidal or homicidal ideations. I am not eliciting any psychotic symptoms at this point but I suspect that she is just minimizing. Her insight and judgment is poor. Concentration is fair. Memory intact. DIAGNOSIS: Schizoaffective disorder, bipolar type, manic episode with psychotic symptoms. TREATMENT PLAN: At this point, will continue to monitor the patient for her psychotic symptoms and manic-like symptoms. We will continue to encourage her to take her Prolixin but in the meantime, since she is requesting Thorazine IM, we will treat her with the Thorazine 50 mg IM. MEREDITH
[2019-12-26] MEDS ORDERED: chlorproMAZINE INJ 50MG/2ML AMP (J3230) IM ONE ×2 (16:15→22:00)
[2019-12-27] MEDS: LEVOTHYROXINE 100MCG TABLET (0.1MG) PO SCH (05:52)
[2019-12-27] MEDS: LITHIUM CARBONATE 300MG/5ML(8MEQ/5ML)ORAL SOLUTION UDC PO SCH ×2 (09:56→20:22)
[2019-12-27] MEDS ORDERED: chlorproMAZINE INJ 50MG/2ML AMP (J3230) IM ONE ×2 (17:15→21:00)
--- NOTE | 2019-12-27 17:30 | MHIPNPDOC ---
[facility] Progress Note Progress Note DATE OF SERVICE: 12/27/2019 Latrice De Paz is a well known patient, she has a h/o multiple admissions to [facility]. She has a h/o bipolar disorder and she has been encouraged to take Fluphenazine 10 mgs Po BID, [place] 300 mgs PO BID. She has taken [place] but she has refused to take Fluphenazine. She has requested Chlorpromazine via IM, she refuses to take it PO and during the weekend she received it via IM as per her request. This afternoon she has requested another dose of Chlorpromazine via IM, the staff encouraged her to take it PO or to take her fluphenazine PO but she refused to. As per patient request this press writer has ordered this medication via IM at 5:15 PM because, as per patient, it makes er feel better. Vital Signs Vital Signs Date Time Temp Pulse Resp B/P (MAP) Pulse Ox O2 Delivery O2 Flow Rate FiO2 12/24/19 16:06 98.3 89 18 132/84 (100) 12/23/19 03:31 96 Room Air Current Medications Current Medications Medications (Trade) Dose Ordered Sig/Ruth Route PRN Reason Start Time Stop Time Status Last Admin Dose Admin Acetaminophen (Tylenol Tab) 650 mg Q6HP PRN PO HEADACHE or DISCOMFORT 12/23/19 01:00 Al Hydrox/Mg Hydrox/Simethicone (Mylanta) 30 ml Q4HP PRN PO HEARTBURN/INDIGESTION 12/23/19 01:00 Diphenhydramine HCl (Benadryl) 50 mg Q4HP PRN PO ANXIETY/AGITATION 12/23/19 15:00 Diphenhydramine HCl (Benadryl) 50 mg STAT STAT IM 12/22/19 21:28 12/22/19 21:30 DC 12/22/19 22:03 Fluphenazine HCl (Prolixin) 10 mg BID PO 12/23/19 09:00 Levothyroxine Sodium (Synthroid) 100 mcg DAILY@06 PO 12/24/19 06:00 [place] Carbonate (Eskalith Oral Solution) 300 mg BID PO 12/23/19 09:00 12/27/19 09:56 Magnesium Hydroxide (Milk Of Magnesia) 30 ml DAILYPRN PRN PO CONSTIPATION 12/23/19 01:00 Trazodone HCl (Desyrel) 50 mg QHSP PRN PO INSOMNIA 12/23/19 01:00 Allergies Coded Allergies: Sulfa (Sulfonamide Antibiotics) (Verified Allergy, Severe, hives, 04/25/19) amoxicillin (Verified Allergy, Intermediate, rash, 04/25/19) azithromycin (Verified Allergy, Intermediate, rash, 04/25/19) levothyroxine (Verified Allergy, Unknown, 12/22/19) pt states it makes her collapse LOBITO AGUERO MD December 27, 2019 17:30
--- NOTE | 2019-12-27 23:19 | MHIPN ---
DATE: 12/26/2019 The patient today asked me to "call me Ciarra." Her only concern was make sure that I continue to give melendez, which she always insists has to be given intramuscularly. She tells me that the Thorazine helps her with her seizure disorder, with her panic disorder, and she really feels it helps with that. MENTAL STATUS EXAM: The patient is alert and oriented times three, pleasant, cooperative, verbally spontaneous. There is no formal thought disorder noted. She says that she is doing okay. Affect is labile. The patient continues to be psychotic. She denies suicidal or homicidal ideation. Concentration fair. Memory intact. Insight and judgment is poor. DIAGNOSIS: Schizoaffective disorder, bipolar type, manic. TREATMENT PLAN: At this point, we will continue to monitor for her ongoing psychotic symptoms and poor insight about her illness, and so far I have given her the Thorazine intramuscularly at her request, especially since she has been refusing to take her Prolixin. MEREDITH
[2019-12-28] MEDS: LEVOTHYROXINE 100MCG TABLET (0.1MG) PO SCH (06:00)
--- NOTE | 2019-12-28 09:19 | MHIPNPDOC ---
[facility] Progress Note Progress Note Inpatient Progress Note Zandra Lee MRN: N/A Date of : N/A Date of Service: 12/28/2019 History of Present Illness The patient, a 29-year-old woman with a well known history of schizophrenia presents after using cocaine and various synthetic drugs after leaving her longterm. She is quite distorted and psychotic, unable to engage in any meaningful interview other than to ask for injections. Psychosocial information is taken from previous assessments and updated as appropriate. Interval History The patient is met with today. However, she is still quite distorted referring to herself as "Nike." She generally is still unable to engage in any meaningful discussion. Although some staff report she is at her baseline, she appears highly distorted primarily wanting to get injections of Thorazine. She did consent to an EKG yesterday, of which the QTc was normal. She received some IM Thorazine at her request. She continues to take the lithium. Review Of Systems Unable to obtain due to mental state. Psychotherapy None on this visit. Vital Signs Reviewed. Mental Status Examination General: Disheveled. Speech: Rapid. Thought processes: Tangential. MSK: Restlessness. Thought content: Bizarre and paranoid. Abstract reasoning, and computation: Impaired. Description of associations: Impaired. Description of abnormal or psychotic thoughts: Paranoid thoughts. Judgment: Impaired. Insight: Impaired. Orientation: Alert and orientated 3 Cognition: Grossly normal Recent and remote memory: Intact Attention span and concentration: Impaired. Fund of knowledge: Adequate Mood: "okay" Affect: Flat. Diagnoses Schizoaffective disorder, bipolar type, most recent episode manic. Cocaine use disorder, severe. Methamphetamine use disorder, severe. Tobacco use disorder, unspecified. Cannabis use disorder, unspecified. Assessment and Plan Schizoaffective disorder: We will discontinue Prolixin at this time, increase lithium to 450 mg daily, we will try to get more Thorazine in order to obtain more insight. Cocaine/methamphetamine/cannabis use disorder: Recommend outpatient treatment. Tobacco use disorder: Offer nicotine replacement. Disposition Patient will need to be retained on an involuntary stay as he is still fairly psychotic and distorted. Time Spent 15 minutes. Friday Vital Signs Vital Signs Date Time Temp Pulse Resp B/P (MAP) Pulse Ox O2 Delivery O2 Flow Rate FiO2 12/24/19 16:06 98.3 89 18 132/84 (100) 12/23/19 03:31 96 Room Air Current Medications Current Medications Medications (Trade) Dose Ordered Sig/Ruth Route PRN Reason Start Time Stop Time Status Last Admin Dose Admin Acetaminophen (Tylenol Tab) 650 mg Q6HP PRN PO HEADACHE or DISCOMFORT 12/23/19 01:00 Al Hydrox/Mg Hydrox/Simethicone (Mylanta) 30 ml Q4HP PRN PO HEARTBURN/INDIGESTION 12/23/19 01:00 Diphenhydramine HCl (Benadryl) 50 mg Q4HP PRN PO ANXIETY/AGITATION 12/23/19 15:00 Diphenhydramine HCl (Benadryl) 50 mg STAT STAT IM 12/22/19 21:28 12/22/19 21:30 DC 12/22/19 22:03 Fluphenazine HCl (Prolixin) 10 mg BID PO 12/23/19 09:00 Levothyroxine Sodium (Synthroid) 100 mcg DAILY@06 PO 12/24/19 06:00 [place] Carbonate (Eskalith Oral Solution) 300 mg BID PO 12/23/19 09:00 12/27/19 20:22 Magnesium Hydroxide (Milk Of Magnesia) 30 ml DAILYPRN PRN PO CONSTIPATION 12/23/19 01:00 Trazodone HCl (Desyrel) 50 mg QHSP PRN PO INSOMNIA 12/23/19 01:00 Allergies Coded Allergies: Sulfa (Sulfonamide Antibiotics) (Verified Allergy, Severe, hives, 04/25/19) amoxicillin (Verified Allergy, Intermediate, rash, 04/25/19) azithromycin (Verified Allergy, Intermediate, rash, 04/25/19) levothyroxine (Verified Allergy, Unknown, 12/22/19) pt states it makes her collapse LYRIC REID DO December 28, 2019 09:19
[2019-12-28] MEDS: LITHIUM CARBONATE 300MG/5ML(8MEQ/5ML)ORAL SOLUTION UDC PO SCH ×2 (09:35→20:39)
[2019-12-28] MEDS ORDERED: chlorproMAZINE 25 MG TABLET PO PRN (14:00)
[2019-12-28] MEDS ORDERED: chlorproMAZINE INJ 50MG/2ML AMP (J3230) IM ONE ×2 (16:15→20:00)
[2019-12-28 16:46] VITALS: BP 136/76
--- NOTE | 2019-12-28 16:47 | ECGEPIP ---
[facility] Test Date: 2019-12-28 Pat Name: BRANDON CUELLAR Department: Room: [place] [address] Gender: Female Medical Scheduler: VASILE : 1990 Requested By: LYRIC REID Order Number: [id number] Reading MD: Marielle Wang Measurements Intervals [place] Rate: 98 P: 55 CO: 137 QRS: 42 QRSD: 84 T: 36 QT: 340 QTc: 435 Interpretive Statements SINUS RHYTHM ANT T WAVE ABN IMPROVED C/W04/25/19 Electronically Signed on 12-28-2019 16:46:33 EDT by Marielle Wang
[2019-12-29] MEDS: LEVOTHYROXINE 100MCG TABLET (0.1MG) PO SCH (05:49)
[2019-12-29] MEDS: LITHIUM CARBONATE 300MG/5ML(8MEQ/5ML)ORAL SOLUTION UDC PO SCH ×2 (09:46→20:33)
--- NOTE | 2019-12-29 09:55 | MHIPNPDOC ---
[facility] Progress Note Progress Note Inpatient Progress Note Zandra Lee MRN: N/A Date of : N/A Date of Service: 12/29/2019 History of Present Illness The patient, a 29-year-old woman with a well known history of schizophrenia presents after using cocaine and various synthetic drugs after leaving her [facility]. She is quite distorted and psychotic, unable to engage in any meaningful interview other than to ask for injections. Psychosocial information is taken from previous assessments and updated as appropriate. Interval History The patient is met with today. She is less hyperactive and more focussed. She continues to want the injectable chlorpromazine. She reports she does not want to take the oral medicine as her insurance "does not cover it". The patient reports that she is still taking the lithium without trouble. EKG is still normal. She has notably become less attention seeking since taking the higher dose of chlorpromazine. Review Of Systems General: Denies fever or appetite changes Cardiovascular: Denies Chest pain or palpations GI: Denies Nausea, vomiting, or bowel changes Respiratory: Denies shortness of breath or cough Neuro: Denies dizziness, tremors Derm: Denies any rashes or pruritus : Denies any dysuria or urinary problems MSK: Denies any muscle tightness or stiffness HEENT: Denies any vision changes or headaches Psychotherapy None on this visit. Vital Signs Reviewed. Mental Status Examination General: Disheveled. Speech: Rapid. Thought processes: More linear. MSK: Restlessness. Thought content: Less bizarre. Abstract reasoning, and computation: Impaired. Description of associations: Impaired. Description of abnormal or psychotic thoughts: Paranoid thoughts. Judgment: Improved. Insight: Improved. Orientation: Alert and orientated 3 Cognition: Grossly normal Recent and remote memory: Intact Attention span and concentration: Impaired. Fund of knowledge: Adequate Mood: "okay" Affect: More reactive. Diagnoses Schizoaffective disorder, bipolar type, most recent episode manic. Cocaine use disorder, severe. Methamphetamine use disorder, severe. Tobacco use disorder, unspecified. Cannabis use disorder, unspecified. Assessment and Plan Schizoaffective disorder: Continue lithium 450 mg daily, we'll give second dose of Thorazine 150 mg IM as patient will only take this, it does appear to be making her better, we'll judiciously monitor with EKGs. Cocaine/methamphetamine/cannabis use disorder: Recommend outpatient treatment. Tobacco use disorder: Offer nicotine replacement. Disposition Patient will need to be further monitored. Her ability to return home is going to be difficult as her environment will likely lead to her readmission if not appropriately assessed and treated. Time Spent 15 minutes. Friday Vital Signs Vital Signs Date Time Temp Pulse Resp B/P (MAP) Pulse Ox O2 Delivery O2 Flow Rate FiO2 12/28/19 16:46 98.0 100 20 136/76 (96) 12/23/19 03:31 96 Room Air Current Medications Current Medications Medications (Trade) Dose Ordered Sig/Ruth Route PRN Reason Start Time Stop Time Status Last Admin Dose Admin Acetaminophen (Tylenol Tab) 650 mg Q6HP PRN PO HEADACHE or DISCOMFORT 12/23/19 01:00 Al Hydrox/Mg Hydrox/Simethicone (Mylanta) 30 ml Q4HP PRN PO HEARTBURN/INDIGESTION 12/23/19 01:00 Chlorpromazine HCl (Thorazine) 100 mg Q6HP PRN PO AGITATION 12/28/19 14:00 12/28/19 14:00 DC Chlorpromazine HCl (Thorazine) 150 mg Q6HP PRN PO AGITATION/anxiety 12/28/19 14:00 Diphenhydramine HCl (Benadryl) 50 mg Q4HP PRN PO ANXIETY/AGITATION 12/23/19 15:00 Diphenhydramine HCl (Benadryl) 50 mg STAT STAT IM 12/22/19 21:28 12/22/19 21:30 DC 12/22/19 22:03 Fluphenazine HCl (Prolixin) 10 mg BID PO 12/23/19 09:00 12/28/19 09:42 DC Levothyroxine Sodium (Synthroid) 100 mcg DAILY@06 PO 12/24/19 06:00 [place] Carbonate (Eskalith Oral Solution) 300 mg BID PO 12/23/19 09:00 12/28/19 09:41 DC 12/28/19 09:35 [place] Carbonate (Eskalith Oral Solution) 450 mg BID PO 12/28/19 21:00 12/29/19 09:46 Magnesium Hydroxide (Milk Of Magnesia) 30 ml DAILYPRN PRN PO CONSTIPATION 12/23/19 01:00 Trazodone HCl (Desyrel) 50 mg QHSP PRN PO INSOMNIA 12/23/19 01:00 Allergies Coded Allergies: Sulfa (Sulfonamide Antibiotics) (Verified Allergy, Severe, hives, 04/25/19) amoxicillin (Verified Allergy, Intermediate, rash, 04/25/19) azithromycin (Verified Allergy, Intermediate, rash, 04/25/19) levothyroxine (Verified Allergy, Unknown, 12/22/19) pt states it makes her collapse LYRIC REID DO December 29, 2019 09:55
[2019-12-29] MEDS ORDERED: chlorproMAZINE INJ 50MG/2ML AMP (J3230) IM STA (13:02)
[2019-12-29 18:14] VITALS: BP 143/84
[2019-12-29] MEDS ORDERED: chlorproMAZINE INJ 50MG/2ML AMP (J3230) IM ONE (21:00)
[2019-12-30] MEDS: LEVOTHYROXINE 100MCG TABLET (0.1MG) PO SCH (06:00)
[2019-12-30] MEDS: LITHIUM CARBONATE 300MG/5ML(8MEQ/5ML)ORAL SOLUTION UDC PO SCH ×2 (09:33→21:30)
[2019-12-30] MEDS ORDERED: chlorproMAZINE INJ 50MG/2ML AMP (J3230) IM ONE (16:00)
[2019-12-30] MEDS ORDERED: diphenhydrAMINE 50MG/ML VIAL (J1200) IM ONE (22:00)
[2019-12-31] MEDS: LEVOTHYROXINE 100MCG TABLET (0.1MG) PO SCH (06:00)
[2019-12-31] MEDS: LITHIUM CARBONATE 300MG/5ML(8MEQ/5ML)ORAL SOLUTION UDC PO SCH (08:37)
--- NOTE | 2019-12-31 09:41 | MHIPNPDOC ---
[facility] Progress Note Progress Note Inpatient Progress Note Zandra Lee MRN: N/A Date of : N/A Date of Service: 12/31/2019 History of Present Illness The patient, a 29-year-old woman with a well known history of schizophrenia presents after using cocaine and various synthetic drugs after leaving her [facility]. She is quite distorted and psychotic, unable to engage in any meaningful interview other than to ask for injections. Psychosocial information is taken from previous assessments and updated as appropriate. Interval History The patient has met with today. She is still quite distorted, although she is less hyperverbal, she continues to want injections, nursing has reported concerns that these injections are causing knots and other signs of potential tissue damage. The patient generally continues to ask me for benzodiazepines and other medications in a bizarre away. Review Of Systems Denies any physical problems. Psychotherapy None on this visit. Vital Signs Reviewed. Mental Status Examination General: Disheveled. Speech: Rapid. Thought processes: Linear at times MSK: Restlessness. Thought content: More bizarre. Abstract reasoning, and computation: Impaired. Description of associations: Impaired. Description of abnormal or psychotic thoughts: Paranoid thoughts. Judgment: Baseline. Insight: Baseline Orientation: Alert and orientated 3 Cognition: Grossly normal Recent and remote memory: Intact Attention span and concentration: Impaired. Fund of knowledge: Adequate Mood: "okay" Affect: Flat. Diagnoses Schizoaffective disorder, bipolar type, most recent episode manic. Cocaine use disorder, severe. Methamphetamine use disorder, severe. Tobacco use disorder, unspecified. Cannabis use disorder, unspecified. Assessment and Plan Schizoaffective disorder: Continue lithium 450 mg daily, we'll give second dose of Thorazine 150 mg IM as patient will only take this, it does appear to be making her better, we'll judiciously monitor with EKGs. Cocaine/methamphetamine/cannabis use disorder: Recommend outpatient treatment. Tobacco use disorder: Offer nicotine replacement. Chain schizoaffective disorder will change lithium 450 mg b.i.d. of regular lithium as liquid lithium will not be restocked. Will offer equivalent dose the thorazine oral, however it does not make sense to continue her on these injections. Disposition Patient will need to be retained longer to be placed on appropriate medications, she is too sick to realize that her injections are not appropriate for an outpatient setting and it is unclear she will recover well enough to be able to be discharged back to [facility] or will need to go to a long-term setting. Time Spent 15 minutes Friday Vital Signs Vital Signs Date Time Temp Pulse Resp B/P (MAP) Pulse Ox O2 Delivery O2 Flow Rate FiO2 12/29/19 18:14 100.0 91 16 143/84 (103) 99 Room Air Current Medications Current Medications Medications (Trade) Dose Ordered Sig/Ruth Route PRN Reason Start Time Stop Time Status Last Admin Dose Admin Acetaminophen (Tylenol Tab) 650 mg Q6HP PRN PO HEADACHE or DISCOMFORT 12/23/19 01:00 Al Hydrox/Mg Hydrox/Simethicone (Mylanta) 30 ml Q4HP PRN PO HEARTBURN/INDIGESTION 12/23/19 01:00 Chlorpromazine HCl (Thorazine) 100 mg Q6HP PRN PO AGITATION 12/28/19 14:00 12/28/19 14:00 DC Chlorpromazine HCl (Thorazine) 100 mg STAT STAT IM 12/29/19 13:02 12/29/19 13:04 DC 12/29/19 13:32 Chlorpromazine HCl (Thorazine) 150 mg Q6HP PRN PO AGITATION/anxiety 12/28/19 14:00 Diphenhydramine HCl (Benadryl) 50 mg Q4HP PRN PO ANXIETY/AGITATION 12/23/19 15:00 Diphenhydramine HCl (Benadryl) 50 mg STAT STAT IM 12/22/19 21:28 12/22/19 21:30 DC 12/22/19 22:03 Fluphenazine HCl (Prolixin) 10 mg BID PO 12/23/19 09:00 12/28/19 09:42 DC Levothyroxine Sodium (Synthroid) 100 mcg DAILY@06 PO 12/24/19 06:00 [place] Carbonate (Eskalith Oral Solution) 300 mg BID PO 12/23/19 09:00 12/28/19 09:41 DC 12/28/19 09:35 [place] Carbonate (Eskalith Oral Solution) 450 mg BID PO 12/28/19 21:00 12/31/19 08:37 Magnesium Hydroxide (Milk Of Magnesia) 30 ml DAILYPRN PRN PO CONSTIPATION 12/23/19 01:00 Trazodone HCl (Desyrel) 50 mg QHSP PRN PO INSOMNIA 5/14/20 01:00 Allergies Coded Allergies: Sulfa (Sulfonamide Antibiotics) (Verified Allergy, Severe, hives, 04/25/19) amoxicillin (Verified Allergy, Intermediate, rash, 04/25/19) azithromycin (Verified Allergy, Intermediate, rash, 04/25/19) levothyroxine (Verified Allergy, Unknown, 12/22/19) pt states it makes her collapse LYRIC REID DO December 31, 2019 09:41
[2019-12-31] MEDS: chlorproMAZINE 25 MG TABLET PO PRN ×2 (11:10→18:11)
[2019-12-31] MEDS: LITHIUM CARBONATE 150 MG CAP PO SCH (20:05)
[2020-01-01] MEDS: LEVOTHYROXINE 100MCG TABLET (0.1MG) PO SCH ×4 (05:48→06:48)
[2020-01-01] MEDS: LITHIUM CARBONATE 150 MG CAP PO SCH ×2 (08:24→20:02)
[2020-01-01] MEDS: chlorproMAZINE 25 MG TABLET PO PRN ×3 (08:32→21:21)
[2020-01-02] MEDS: LEVOTHYROXINE 100MCG TABLET (0.1MG) PO SCH (05:37)
[2020-01-02] MEDS: LITHIUM CARBONATE 150 MG CAP PO SCH ×2 (08:14→20:19)
[2020-01-02] MEDS: chlorproMAZINE 25 MG TABLET PO PRN ×3 (09:54→22:13)
[2020-01-03] MEDS: LEVOTHYROXINE 100MCG TABLET (0.1MG) PO SCH (05:32)
[2020-01-03] MEDS: LITHIUM CARBONATE 150 MG CAP PO SCH ×2 (09:23→20:25)
[2020-01-03] MEDS: chlorproMAZINE 25 MG TABLET PO PRN ×2 (11:22→18:06)
[2020-01-04] MEDS: chlorproMAZINE 25 MG TABLET PO PRN ×2 (00:18→09:25)
[2020-01-04] MEDS: LEVOTHYROXINE 100MCG TABLET (0.1MG) PO SCH (05:02)
--- NOTE | 2020-01-04 09:07 | MHIPNPDOC ---
[facility] Progress Note Progress Note DATE OF SERVICE: 01/04/20 29-year-old woman with a history of schizoaffective disorder is seen in follow- up, she still quite distorted and is unable to answer questions in any great deg ree. She has been generally distorted asking for injections, she refuses to take her thyroxine, reporting that she is currently allergic to it. She is been bizarre and generally unable to engage in care staying in her room for the majority of the day. Vital Signs Vital Signs Date Time Temp Pulse Resp B/P (MAP) Pulse Ox O2 Delivery O2 Flow Rate FiO2 01/03/20 09:36 98.6 12/29/19 18:14 91 16 143/84 (103) 99 Room Air Current Medications Current Medications Medications (Trade) Dose Ordered Sig/Ruth Route PRN Reason Start Time Stop Time Status Last Admin Dose Admin Acetaminophen (Tylenol Tab) 650 mg Q6HP PRN PO HEADACHE or DISCOMFORT 12/23/19 01:00 Al Hydrox/Mg Hydrox/Simethicone (Mylanta) 30 ml Q4HP PRN PO HEARTBURN/INDIGESTION 12/23/19 01:00 Chlorpromazine HCl (Thorazine) 100 mg Q6HP PRN PO AGITATION 12/28/19 14:00 12/28/19 14:00 DC Chlorpromazine HCl (Thorazine) 100 mg STAT STAT IM 12/29/19 13:02 12/29/19 13:04 DC 12/29/19 13:32 Chlorpromazine HCl (Thorazine) 150 mg Q6HP PRN PO AGITATION/anxiety 12/28/19 14:00 01/04/20 00:18 Diphenhydramine HCl (Benadryl) 50 mg Q4HP PRN PO ANXIETY/AGITATION 12/23/19 15:00 Diphenhydramine HCl (Benadryl) 50 mg STAT STAT IM 12/22/19 21:28 12/22/19 21:30 DC 12/22/19 22:03 Fluphenazine HCl (Prolixin) 10 mg BID PO 12/23/19 09:00 12/28/19 09:42 DC Levothyroxine Sodium (Synthroid) 100 mcg DAILY@06 PO 12/24/19 06:00 01/01/20 06:32 [place] Carbonate (Eskalith Oral Solution) 300 mg BID PO 12/23/19 09:00 12/28/19 09:41 DC 12/28/19 09:35 [place] Carbonate (Eskalith Oral Solution) 450 mg BID PO 12/28/19 21:00 12/31/19 10:58 DC 12/31/19 08:37 [place] Carbonate ([place] Carbonate) 450 mg BID PO 12/31/19 21:00 01/03/20 20:25 Magnesium Hydroxide (Milk Of Magnesia) 30 ml DAILYPRN PRN PO CONSTIPATION 12/23/19 01:00 Trazodone HCl (Desyrel) 50 mg QHSP PRN PO INSOMNIA 12/23/19 01:00 Allergies Coded Allergies: Sulfa (Sulfonamide Antibiotics) (Verified Allergy, Severe, hives, 04/25/19) amoxicillin (Verified Allergy, Intermediate, rash, 04/25/19) azithromycin (Verified Allergy, Intermediate, rash, 04/25/19) levothyroxine (Verified Allergy, Unknown, 12/22/19) pt states it makes her collapse Review of Systems Review of Systems General: Reports: ROS Unobtainable Assessment 29-year-old woman with a history of schizoaffective disorder is seen in follow- up, she will likely need scheduled Thorazine, however, I'm not optimistic whether this will actually produce reasonable results. Problem List Problems: (1) Schizoaffective disorder, bipolar type Status: Acute Response to Treatment: Uncompensated Discussed With: Nurse Problem Specific Plan: Monitor Clinically Problem Text: Continue to offer Thorazine and lithium, might need to change to clozapine as not improving. Avoid using IM injections. Convert to 9.27, will likely need to referral to tool sharpener care (2) Cocaine abuse Status: Chronic Problem Text: Likley more important as outpatient (3) Hypothyroidism Status: Chronic Problem Specific Plan: Repeat Labs Problem Text: continue to offer thryoid hormone, will repeat tsh Medications Scheduled Benztropine Mesylate (Benztropine Mesylate) 0.5 Mg Tablet, 0.5 MG PO QHS, (Reported) Haloperidol (Haloperidol) 5 Mg Tablet, 5 MG PO BID, (Reported) Haloperidol Decanoate (Haloperidol Decanoate) 100 Mg/1 Ml Vial, 300 MG IM QMONTH, (Reported) Levothyroxine Sodium (Synthroid) 100 Mcg Tablet, 100 MCG PO DAILY, (Reported) [place] Carbonate ([place] Carbonate) 300 Mg Tablet, 300 MG PO DAILY, (Reported) [place] Carbonate ([place] Carbonate) 300 Mg Tablet, 600 MG PO QPM, (Reported) Trazodone HCl (Trazodone HCl) 50 Mg Tablet, 50 MG PO QHS, (Reported) Scheduled PRN Hydroxyzine HCl (Hydroxyzine HCl) 50 Mg Tablet, 50 MG PO Q4H PRN for ANXIETY/AGITATION, (Reported) LYRIC REID DO January 04, 2020 09:07
[2020-01-04] MEDS: LITHIUM CARBONATE 150 MG CAP PO SCH ×2 (09:25→20:11)
[2020-01-04 15:38] LABS: FREE T4 1.05 NG/DL (0.76-1.46); THYROID STIMULATING HORMONE 5.55 uIU/ML (0.358-3.740)
[2020-01-04] MEDS: chlorproMAZINE 25 MG TABLET PO SCH ×2 (16:01→20:11)
[2020-01-05] MEDS: LEVOTHYROXINE 100MCG TABLET (0.1MG) PO SCH (05:17)
--- NOTE | 2020-01-05 09:06 | MHIPNPDOC ---
[facility] Progress Note Progress Note DATE OF SERVICE: 01/05/20 Patient seen in follow-up today. She is still preferring to go by the name "Kristy". She still is quite distorted. Although discussion is attempt to be undertaken about her presentation and her parents attempting to get custody of her child, she is wholly unreceptive. She is generally flat and simply states "the not my parents". She still is been quite bizarre staying in her room attempting to convince staff to let her go. Vital Signs Vital Signs Date Time Temp Pulse Resp B/P (MAP) Pulse Ox O2 Delivery O2 Flow Rate FiO2 01/05/20 07:52 Room Air 01/03/20 09:36 98.6 Laboratory Data 24H Labs Laboratory Tests 2 01/04/20 14:40: Thyroid Stimulating Hormone (TSH) 5.550H, Free Thyroxine 1.05 Current Medications Current Medications Medications (Trade) Dose Ordered Sig/Ruth Route PRN Reason Start Time Stop Time Status Last Admin Dose Admin Acetaminophen (Tylenol Tab) 650 mg Q6HP PRN PO HEADACHE or DISCOMFORT 12/23/19 01:00 Al Hydrox/Mg Hydrox/Simethicone (Mylanta) 30 ml Q4HP PRN PO HEARTBURN/INDIGESTION 12/23/19 01:00 Chlorpromazine HCl (Thorazine) 100 mg Q6HP PRN PO AGITATION 12/28/19 14:00 12/28/19 14:00 DC Chlorpromazine HCl (Thorazine) 100 mg STAT STAT IM 12/29/19 13:02 12/29/19 13:04 DC 12/29/19 13:32 Chlorpromazine HCl (Thorazine) 150 mg Q6HP PRN PO AGITATION/anxiety 12/28/19 14:00 01/04/20 13:34 DC 01/04/20 09:25 Chlorpromazine HCl (Thorazine) 150 mg TID PO 01/04/20 16:00 01/04/20 20:11 Diphenhydramine HCl (Benadryl) 50 mg Q4HP PRN PO ANXIETY/AGITATION 12/23/19 15:00 Diphenhydramine HCl (Benadryl) 50 mg STAT STAT IM 12/22/19 21:28 12/22/19 21:30 DC 5/13/20 22:03 Fluphenazine HCl (Prolixin) 10 mg BID PO 12/23/19 09:00 12/28/19 09:42 DC Levothyroxine Sodium (Synthroid) 100 mcg DAILY@06 PO 12/24/19 06:00 01/01/20 06:32 [place] Carbonate (Eskalith Oral Solution) 300 mg BID PO 12/23/19 09:00 12/28/19 09:41 DC 12/28/19 09:35 [place] Carbonate (Eskalith Oral Solution) 450 mg BID PO 12/28/19 21:00 12/31/19 10:58 DC 12/31/19 08:37 [place] Carbonate ([place] Carbonate) 450 mg BID PO 12/31/19 21:00 01/04/20 20:11 Magnesium Hydroxide (Milk Of Magnesia) 30 ml DAILYPRN PRN PO CONSTIPATION 12/23/19 01:00 Trazodone HCl (Desyrel) 50 mg QHSP PRN PO INSOMNIA 12/23/19 01:00 Allergies Coded Allergies: Sulfa (Sulfonamide Antibiotics) (Verified Allergy, Severe, hives, 04/25/19) amoxicillin (Verified Allergy, Intermediate, rash, 04/25/19) azithromycin (Verified Allergy, Intermediate, rash, 04/25/19) levothyroxine (Verified Allergy, Unknown, 12/22/19) pt states it makes her collapse Review of Systems Review of Systems HEENT: Denies: Head Aches Skin: Denies: Rash Pulmonary: Denies: Dyspnea, Cough Cardiovascular: Denies: Chest Pain, Palpitations Gastrointestinal: Denies: Vomiting, Diarrhea, Constipation Neurological: Denies: Weakness, Numbness Mental Status Examination General Appearance: unkempt Build: average Demeanor: preoccupied Eye Contact: intense Activity: average Behavior: cooperative Speech: pressured Mood: other (Flat) Mood "Great." Affect: flat Thought Process: logical/linear Thought Content (Delusions): denies SI, HI, AVH Thought Content (Other): none reported Thought Content (Aggressive): none reported Perception (Hallucinations): none reported Perception (Other): none reported Cognition (Impairment of): none reported Cognition(Intelligence Est.): average Oriented: Awake, Alert, Oriented times three Insight: poor Judgment: Poor Psychosis: Psychotic Perceptions Assessment 29-year-old woman with likely significant schizoaffective disorder is seen in follow-up, she still doing quite poorly and will need augmentation of her antipsychotic. She is still quite distorted and will likely need some form of long-term treatment or very judicious outpatient coordination. Problem List Problems: (1) Schizoaffective disorder, bipolar type Status: Acute Response to Treatment: Uncompensated Discussed With: Nurse Problem Specific Plan: Monitor Clinically Problem Text: Continue to offer Thorazine and lithium, clozapine to be considered. 9.27 in progress (2) Cocaine abuse Status: Chronic Problem Text: Likley more important as outpatient (3) Hypothyroidism Status: Chronic Problem Specific Plan: Repeat Labs Problem Text: TSH rising, patient refuses thyroid meds. Initial Treatment Plan 1. Patient was admitted on a [9.39] status. 2. Complete history was obtained. 3. With patients permission, family will be contacted and database will be expanded. 4. Patients medication regimen will be reviewed and changed accordingly. 5. Patient will be provided with protected environment. 6. Patient will be treated with individual, group, and milieu therapies. 7. Patient will receive supportive psych-education. 8. Discharge planning will commence immediately. 9. Outpatient follow-up treatment will be strongly recommended. 10. The initial treatment plan will focus initially on: * Depression. * Risk for suicide. ESTIMATED LENGTH OF STAY: - DAYS. TIME SPENT COUNSELING AND COORDINATING INITIAL CARE: minutes. Vital Signs Vital Signs Date Time Temp Pulse Resp B/P (MAP) Pulse Ox O2 Delivery O2 Flow Rate FiO2 01/05/20 07:52 Room Air 01/03/20 09:36 98.6 Laboratory Data 24H Labs Laboratory Tests 2 01/04/20 14:40: Thyroid Stimulating Hormone (TSH) 5.550H, Free Thyroxine 1.05 Medications Scheduled Benztropine Mesylate (Benztropine Mesylate) 0.5 Mg Tablet, 0.5 MG PO QHS, (Reported) Haloperidol (Haloperidol) 5 Mg Tablet, 5 MG PO BID, (Reported) Haloperidol Decanoate (Haloperidol Decanoate) 100 Mg/1 Ml Vial, 300 MG IM QMONTH, (Reported) Levothyroxine Sodium (Synthroid) 100 Mcg Tablet, 100 MCG PO DAILY, (Reported) [place] Carbonate ([place] Carbonate) 300 Mg Tablet, 300 MG PO DAILY, (Reported) [place] Carbonate ([place] Carbonate) 300 Mg Tablet, 600 MG PO QPM, (Reported) Trazodone HCl (Trazodone HCl) 50 Mg Tablet, 50 MG PO QHS, (Reported) Scheduled PRN Hydroxyzine HCl (Hydroxyzine HCl) 50 Mg Tablet, 50 MG PO Q4H PRN for ANXIETY/AGITATION, (Reported) LYRIC REID DO January 05, 2020 09:06
[2020-01-05] MEDS: chlorproMAZINE 25 MG TABLET PO SCH ×3 (09:49→20:43)
[2020-01-05] MEDS: LITHIUM CARBONATE 150 MG CAP PO SCH ×2 (09:50→20:43)
[2020-01-06] MEDS: LEVOTHYROXINE 100MCG TABLET (0.1MG) PO SCH (05:57)
[2020-01-06] MEDS: LITHIUM CARBONATE 150 MG CAP PO SCH ×2 (10:16→20:22)
[2020-01-06] MEDS: chlorproMAZINE 25 MG TABLET PO SCH ×3 (10:17→20:22)
--- NOTE | 2020-01-06 10:19 | MHIPNPDOC ---
[facility] Progress Note Progress Note DATE OF SERVICE: 01/06/20 The patient is met with today. She reports that she is "fine". She is been taking the Thorazine but consistently asking for injections of Benadryl. The patient has been unengaged in treatment. Generally staying in her room. She is still quite bizarre and unable to engage in any realistic discussion today. She still considers her thyroid medication to be an allergy and is unable to describe anything beyond simple statements. Vital Signs Vital Signs Date Time Temp Pulse Resp B/P (MAP) Pulse Ox O2 Delivery O2 Flow Rate FiO2 01/06/20 08:00 Room Air 01/03/20 09:36 98.6 Current Medications Current Medications Medications (Trade) Dose Ordered Sig/Ruth Route PRN Reason Start Time Stop Time Status Last Admin Dose Admin Acetaminophen (Tylenol Tab) 650 mg Q6HP PRN PO HEADACHE or DISCOMFORT 12/23/19 01:00 Al Hydrox/Mg Hydrox/Simethicone (Mylanta) 30 ml Q4HP PRN PO HEARTBURN/INDIGESTION 12/23/19 01:00 Chlorpromazine HCl (Thorazine) 100 mg Q6HP PRN PO AGITATION 12/28/19 14:00 12/28/19 14:00 DC Chlorpromazine HCl (Thorazine) 100 mg STAT STAT IM 12/29/19 13:02 12/29/19 13:04 DC 12/29/19 13:32 Chlorpromazine HCl (Thorazine) 150 mg Q6HP PRN PO AGITATION/anxiety 12/28/19 14:00 01/04/20 13:34 DC 01/04/20 09:25 Chlorpromazine HCl (Thorazine) 150 mg TID PO 01/04/20 16:00 01/05/20 20:43 Diphenhydramine HCl (Benadryl) 50 mg Q4HP PRN PO ANXIETY/AGITATION 12/23/19 15:00 Diphenhydramine HCl (Benadryl) 50 mg STAT STAT IM 12/22/19 21:28 12/22/19 21:30 DC 12/22/19 22:03 Fluphenazine HCl (Prolixin) 10 mg BID PO 12/23/19 09:00 12/28/19 09:42 DC Levothyroxine Sodium (Synthroid) 100 mcg DAILY@06 PO 12/24/19 06:00 01/06/20 05:57 [place] Carbonate (Eskalith Oral Solution) 300 mg BID PO 12/23/19 09:00 12/28/19 09:41 DC 12/28/19 09:35 [place] Carbonate (Eskalith Oral Solution) 450 mg BID PO 12/28/19 21:00 12/31/19 10:58 DC 12/31/19 08:37 [place] Carbonate ([place] Carbonate) 450 mg BID PO 12/31/19 21:00 01/05/20 20:43 [place] Hydroxide (Milk Of Magnesia) 30 ml DAILYPRN PRN PO CONSTIPATION 12/23/19 01:00 Trazodone HCl (Desyrel) 50 mg QHSP PRN PO INSOMNIA 12/23/19 01:00 Allergies Coded Allergies: Sulfa (Sulfonamide Antibiotics) (Verified Allergy, Severe, hives, 04/25/19) amoxicillin (Verified Allergy, Intermediate, rash, 04/25/19) azithromycin (Verified Allergy, Intermediate, rash, 04/25/19) levothyroxine (Verified Allergy, Unknown, 12/22/19) pt states it makes her collapse Review of Systems Review of Systems Constitutional: Denies: Fever Skin: Denies: Rash Pulmonary: Denies: Dyspnea, Cough Cardiovascular: Denies: Chest Pain, Palpitations Gastrointestinal: Denies: Nausea, Vomiting, Abdominal Pain, Diarrhea, Constipation Neurological: Denies: Weakness, Numbness Mental Status Examination General Appearance: unkempt Build: average Demeanor: preoccupied Eye Contact: intense Activity: slowed Behavior: cooperative Speech: pressured Mood: elevated Mood "Great." Affect: flat Thought Process: circumstantial Thought Content (Delusions): denies SI, HI, AVH Thought Content (Other): preoccupied Cognition (Impairment of): ability to abstract Cognition(Intelligence Est.): average Oriented: Awake, Alert Insight: poor Judgment: Poor Psychosis: Psychotic Perceptions Assessment 29-year-old woman with a history of schizoaffective disorder is making slow progress on Thorazine and lithium. She likely need augmentation with the higher end agent such as cause of pain. Problem List Problems: (1) Schizoaffective disorder, bipolar type Status: Acute Response to Treatment: Uncompensated Discussed With: Nurse Problem Specific Plan: Monitor Clinically Problem Text: Continue lithium at Thorazine a current dose, will add clz 12.5 mg nightly as augmentation (2) Cocaine abuse Status: Chronic Problem Text: Likley more important as outpatient (3) Hypothyroidism Status: Chronic Problem Specific Plan: Repeat Labs Problem Text: TSH rising, patient refuses thyroid meds. Medications Scheduled Benztropine Mesylate (Benztropine Mesylate) 0.5 Mg Tablet, 0.5 MG PO QHS, (Reported) Haloperidol (Haloperidol) 5 Mg Tablet, 5 MG PO BID, (Reported) Haloperidol Decanoate (Haloperidol Decanoate) 100 Mg/1 Ml Vial, 300 MG IM QMONTH, (Reported) Levothyroxine Sodium (Synthroid) 100 Mcg Tablet, 100 MCG PO DAILY, (Reported) [place] Carbonate ([place] Carbonate) 300 Mg Tablet, 300 MG PO DAILY, (Reported) [place] Carbonate ([place] Carbonate) 300 Mg Tablet, 600 MG PO QPM, (Reported) Trazodone HCl (Trazodone HCl) 50 Mg Tablet, 50 MG PO QHS, (Reported) Scheduled PRN Hydroxyzine HCl (Hydroxyzine HCl) 50 Mg Tablet, 50 MG PO Q4H PRN for ANXIETY/AGITATION, (Reported) LYRIC REID DO January 06, 2020 10:19
[2020-01-06] MEDS: cloZAPine 25 MG TAB (S0136) PO SCH (20:22)
[2020-01-06] MEDS: PILL CUTTER 1 EACH XX PRN (20:23)
[2020-01-07] MEDS: LEVOTHYROXINE 100MCG TABLET (0.1MG) PO SCH (05:49)
[2020-01-07] MEDS: LITHIUM CARBONATE 150 MG CAP PO SCH ×2 (09:18→20:30)
[2020-01-07] MEDS: chlorproMAZINE 25 MG TABLET PO SCH ×3 (09:18→20:29)
--- NOTE | 2020-01-07 09:18 | MHIPNPDOC ---
[facility] Progress Note Progress Note DATE OF SERVICE: 01/07/20 The patient is met with today. She appears to be doing somewhat better, she is less distorted and has been taking her thyroid medications. She reports she is had no ill effects from her new medications and generally remains isolative to room. She continually asked about when she will leave, she is notably less distorted and pressured than yesterday. No behavioral problems overnight. Vital Signs Vital Signs Date Time Temp Pulse Resp B/P (MAP) Pulse Ox O2 Delivery O2 Flow Rate FiO2 01/06/20 08:00 Room Air 01/03/20 09:36 98.6 Current Medications Current Medications Medications (Trade) Dose Ordered Sig/Ruth Route PRN Reason Start Time Stop Time Status Last Admin Dose Admin Acetaminophen (Tylenol Tab) 650 mg Q6HP PRN PO HEADACHE or DISCOMFORT 12/23/19 01:00 Al Hydrox/Mg Hydrox/Simethicone (Mylanta) 30 ml Q4HP PRN PO HEARTBURN/INDIGESTION 12/23/19 01:00 Chlorpromazine HCl (Thorazine) 100 mg Q6HP PRN PO AGITATION 12/28/19 14:00 12/28/19 14:00 DC Chlorpromazine HCl (Thorazine) 100 mg STAT STAT IM 12/29/19 13:02 12/29/19 13:04 DC 12/29/19 13:32 Chlorpromazine HCl (Thorazine) 150 mg Q6HP PRN PO AGITATION/anxiety 12/28/19 14:00 01/04/20 13:34 DC 01/04/20 09:25 Chlorpromazine HCl (Thorazine) 150 mg TID PO 01/04/20 16:00 01/06/20 20:22 Clozapine (Clozaril) 12.5 mg QHS PO 01/06/20 21:00 01/06/20 20:22 Diphenhydramine HCl (Benadryl) 50 mg Q4HP PRN PO ANXIETY/AGITATION 12/23/19 15:00 Diphenhydramine HCl (Benadryl) 50 mg STAT STAT IM 12/22/19 21:28 12/22/19 21:30 DC 12/22/19 22:03 Fluphenazine HCl (Prolixin) 10 mg BID PO 12/23/19 09:00 12/28/19 09:42 DC Levothyroxine Sodium (Synthroid) 100 mcg DAILY@06 PO 12/24/19 06:00 01/07/20 05:49 [place] Carbonate (Eskalith Oral Solution) 300 mg BID PO 12/23/19 09:00 12/28/19 09:41 DC 12/28/19 09:35 [place] Carbonate (Eskalith Oral Solution) 450 mg BID PO 12/28/19 21:00 12/31/19 10:58 DC 12/31/19 08:37 [place] Carbonate ([place] Carbonate) 450 mg BID PO 12/31/19 21:00 01/06/20 20:22 Magnesium Hydroxide (Milk Of Magnesia) 30 ml DAILYPRN PRN PO CONSTIPATION 12/23/19 01:00 Trazodone HCl (Desyrel) 50 mg QHSP PRN PO INSOMNIA 12/23/19 01:00 Allergies Coded Allergies: Sulfa (Sulfonamide Antibiotics) (Verified Allergy, Severe, hives, 04/25/19) amoxicillin (Verified Allergy, Intermediate, rash, 04/25/19) azithromycin (Verified Allergy, Intermediate, rash, 04/25/19) levothyroxine (Verified Allergy, Unknown, 12/22/19) pt states it makes her collapse Review of Systems Review of Systems General: Reports: Normal Appetite Constitutional: Denies: Fever HEENT: Denies: Head Aches Skin: Denies: Rash Cardiovascular: Denies: Chest Pain, Palpitations Gastrointestinal: Denies: Nausea, Vomiting, Diarrhea, Constipation Neurological: Denies: Weakness Mental Status Examination General Appearance: well groomed Build: average Demeanor: preoccupied Eye Contact: average Activity: average Behavior: cooperative Speech: pressured Mood: euphoric Mood "i'm sang" Thought Process: concrete Thought Content (Delusions): bizarre, denies SI, HI, AVH Cognition(Intelligence Est.): average Oriented: Awake, Alert, Oriented times three Insight: improving Judgment: Improving Psychosis: Psychotic Perceptions Assessment 29-year-old woman with history of schizoaffective disorder is seen in follow-up, she appears making some progress on clozapine. Problem List Problems: (1) Schizoaffective disorder, bipolar type Status: Acute Response to Treatment: Uncompensated Discussed With: Nurse Problem Specific Plan: Monitor Clinically Problem Text: Continue lithium, Thorazine and Clozaril at current doses, prophylactic laxatives started in order to avoid constipation. (2) Cocaine abuse Status: Chronic Problem Text: [place] more important as outpatient (3) Hypothyroidism Status: Chronic Problem Specific Plan: Repeat Labs Problem Text: TSH rising, patient refuses thyroid meds. Medications Scheduled Benztropine Mesylate (Benztropine Mesylate) 0.5 Mg Tablet, 0.5 MG PO QHS, (Reported) Haloperidol (Haloperidol) 5 Mg Tablet, 5 MG PO BID, (Reported) Haloperidol Decanoate (Haloperidol Decanoate) 100 Mg/1 Ml Vial, 300 MG IM QMONTH, (Reported) Levothyroxine Sodium (Synthroid) 100 Mcg Tablet, 100 MCG PO DAILY, (Reported) [place] Carbonate ([place] Carbonate) 300 Mg Tablet, 300 MG PO DAILY, (Reported) [place] Carbonate ([place] Carbonate) 300 Mg Tablet, 600 MG PO QPM, (Reported) Trazodone HCl (Trazodone HCl) 50 Mg Tablet, 50 MG PO QHS, (Reported) Scheduled PRN Hydroxyzine HCl (Hydroxyzine HCl) 50 Mg Tablet, 50 MG PO Q4H PRN for ANXIETY/LEISA TATION, (Reported) LYRIC REID DO January 07, 2020 09:18
[2020-01-07] MEDS: cloZAPine 25 MG TAB (S0136) PO SCH (20:29)
[2020-01-08] MEDS: LEVOTHYROXINE 100MCG TABLET (0.1MG) PO SCH (06:02)
[2020-01-08] MEDS: DOCUSATE SODIUM 100 MG CAP PO SCH (09:00)
[2020-01-08] MEDS: LITHIUM CARBONATE 150 MG CAP PO SCH ×2 (09:42→21:00)
[2020-01-08] MEDS: chlorproMAZINE 25 MG TABLET PO SCH ×3 (09:43→21:00)
[2020-01-08] MEDS: cloZAPine 25 MG TAB (S0136) PO SCH (21:00)
[2020-01-09] MEDS: LEVOTHYROXINE 100MCG TABLET (0.1MG) PO SCH (06:01)
[2020-01-09] MEDS: DOCUSATE SODIUM 100 MG CAP PO SCH (09:00)
[2020-01-09] MEDS: LITHIUM CARBONATE 150 MG CAP PO SCH ×2 (10:20→20:36)
[2020-01-09] MEDS: chlorproMAZINE 25 MG TABLET PO SCH ×3 (10:20→20:35)
[2020-01-09] MEDS: cloZAPine 25 MG TAB (S0136) PO SCH (20:36)
[2020-01-10] MEDS: LEVOTHYROXINE 100MCG TABLET (0.1MG) PO SCH (05:49)
[2020-01-10] MEDS: LITHIUM CARBONATE 150 MG CAP PO SCH ×2 (08:53→20:49)
[2020-01-10] MEDS: DOCUSATE SODIUM 100 MG CAP PO SCH (08:54)
[2020-01-10] MEDS: chlorproMAZINE 25 MG TABLET PO SCH ×3 (08:54→20:50)
--- NOTE | 2020-01-10 10:07 | MHIPNPDOC ---
[facility] Progress Note Progress Note DATE OF SERVICE: 01/10/20 29-year-old woman seen in follow-up today, she reports she is doing better. Staff note, the patient generally at her baseline, she refers to herself as "Kristy", however she is not had any threatening behavior and has generally been isolate to her room except for meals and occasional engagements. The patient generally reports that she is doing much better has been taking her medications without problems, she is generally amenable to suggestions. Vital Signs Vital Signs Date Time Temp Pulse Resp B/P (MAP) Pulse Ox O2 Delivery O2 Flow Rate FiO2 01/06/20 08:00 Room Air Current Medications Current Medications Medications (Trade) Dose Ordered Sig/Ruth Route PRN Reason Start Time Stop Time Status Last Admin Dose Admin Acetaminophen (Tylenol Tab) 650 mg Q6HP PRN PO HEADACHE or DISCOMFORT 12/23/19 01:00 Al Hydrox/Mg Hydrox/Simethicone (Mylanta) 30 ml Q4HP PRN PO HEARTBURN/INDIGESTION 12/23/19 01:00 Chlorpromazine HCl (Thorazine) 100 mg Q6HP PRN PO AGITATION 12/28/19 14:00 12/28/19 14:00 DC Chlorpromazine HCl (Thorazine) 100 mg STAT STAT IM 12/29/19 13:02 12/29/19 13:04 DC 12/29/19 13:32 Chlorpromazine HCl (Thorazine) 150 mg Q6HP PRN PO AGITATION/anxiety 12/28/19 14:00 01/04/20 13:34 DC 01/04/20 09:25 Chlorpromazine HCl (Thorazine) 150 mg TID PO 01/04/20 16:00 01/10/20 08:54 Clozapine (Clozaril) 12.5 mg QHS PO 01/06/20 21:00 01/09/20 20:36 Diphenhydramine HCl (Benadryl) 50 mg Q4HP PRN PO ANXIETY/AGITATION 12/23/19 15:00 Diphenhydramine HCl (Benadryl) 50 mg STAT STAT IM 12/22/19 21:28 12/22/19 21:30 DC 12/22/19 22:03 Docusate Sodium (Colace) 100 mg DAILY PO 01/08/20 09:00 Fluphenazine HCl (Prolixin) 10 mg BID PO 12/23/19 09:00 12/28/19 09:42 DC Levothyroxine Sodium (Synthroid) 100 mcg DAILY@06 PO 12/24/19 06:00 01/10/20 05:49 [place] Carbonate (Eskalith Oral Solution) 300 mg BID PO 12/23/19 09:00 12/28/19 09:41 DC 12/28/19 09:35 [place] Carbonate (Eskalith Oral Solution) 450 mg BID PO 12/28/19 21:00 12/31/19 10:58 DC 12/31/19 08:37 [place] Carbonate ([place] Carbonate) 450 mg BID PO 12/31/19 21:00 01/10/20 08:53 Magnesium Hydroxide (Milk Of Magnesia) 30 ml DAILYPRN PRN PO CONSTIPATION 12/23/19 01:00 Trazodone HCl (Desyrel) 50 mg QHSP PRN PO INSOMNIA 12/23/19 01:00 Allergies Coded Allergies: Sulfa (Sulfonamide Antibiotics) (Verified Allergy, Severe, hives, 04/25/19) amoxicillin (Verified Allergy, Intermediate, rash, 04/25/19) azithromycin (Verified Allergy, Intermediate, rash, 04/25/19) levothyroxine (Verified Allergy, Unknown, 12/22/19) pt states it makes her collapse Review of Systems Review of Systems Constitutional: Denies: Chills, Fever HEENT: Denies: Head Aches Skin: Denies: Rash Pulmonary: Denies: Dyspnea, Cough Cardiovascular: Denies: Chest Pain, Palpitations Gastrointestinal: Denies: Nausea, Vomiting, Diarrhea, Constipation Neurological: Denies: Weakness, Numbness Mental Status Examination General Appearance: well groomed Build: average Demeanor: average Eye Contact: intense Activity: average Behavior: cooperative Speech: pressured Mood: hypomanic Affect: constricted Thought Process: associative Thought Content (Delusions): denies SI, HI, AVH Thought Content (Other): none reported Cognition(Intelligence Est.): average Oriented: Awake, Alert Insight: improving Judgment: Improving Psychosis: Denies Assessment 29-year-old woman with likely schizoaffective disorder is making some progress on clozapine she will likely field be discharged once effective outpatient plan can be done, contact with her outpatient AOT team should help arrange for smooth transfer. Problem List Problems: (1) Schizoaffective disorder, bipolar type Status: Acute Response to Treatment: Improving Discussed With: Nurse Problem Specific Plan: Monitor Clinically Problem Text: Continue lithium, Thorazine and Clozaril at current doses, prophylactic laxatives started in order to avoid constipation. (2) Cocaine abuse Status: Chronic Problem Text: [place] more important as outpatient (3) Hypothyroidism Status: Chronic Response to Treatment: Improving Problem Specific Plan: Monitor Clinically Problem Text: now taking meds Medications Scheduled Benztropine Mesylate (Benztropine Mesylate) 0.5 Mg Tablet, 0.5 MG PO QHS, (Reported) Haloperidol (Haloperidol) 5 Mg Tablet, 5 MG PO BID, (Reported) Haloperidol Decanoate (Haloperidol Decanoate) 100 Mg/1 Ml Vial, 300 MG IM QMONTH, (Reported) Levothyroxine Sodium (Synthroid) 100 Mcg Tablet, 100 MCG PO DAILY, (Reported) [place] Carbonate ([place] Carbonate) 300 Mg Tablet, 300 MG PO DAILY, (Reported) [place] Carbonate ([place] Carbonate) 300 Mg Tablet, 600 MG PO QPM, (Reported) Trazodone HCl (Trazodone HCl) 50 Mg Tablet, 50 MG PO QHS, (Reported) Scheduled PRN Hydroxyzine HCl (Hydroxyzine HCl) 50 Mg Tablet, 50 MG PO Q4H PRN for ANXIETY/AGITATION, (Reported) LYRIC REID DO Jan 10, 2020 10:07
[2020-01-10] MEDS: cloZAPine 25 MG TAB (S0136) PO SCH (20:50)
[2020-01-10] MEDS: PILL CUTTER 1 EACH XX PRN (20:51)
[2020-01-11] MEDS: LEVOTHYROXINE 100MCG TABLET (0.1MG) PO SCH (06:00)
--- NOTE | 2020-01-11 09:15 | MHIPNPDOC ---
[facility] Progress Note Progress Note DATE OF SERVICE: 01/11/20 29-year-old woman with a history of significant schizophrenia is seen in follow- up today. She continues to ask about discharge, she is still distorted and stay s isolate have to her room. She still prefers to go by another name and has generally been unable to engage in any realistic treatment. Vital Signs Vital Signs Date Time Temp Pulse Resp B/P (MAP) Pulse Ox O2 Delivery O2 Flow Rate FiO2 01/06/20 08:00 Room Air Current Medications Current Medications Medications (Trade) Dose Ordered Sig/Ruth Route PRN Reason Start Time Stop Time Status Last Admin Dose Admin Acetaminophen (Tylenol Tab) 650 mg Q6HP PRN PO HEADACHE or DISCOMFORT 12/23/19 01:00 Al Hydrox/Mg Hydrox/Simethicone (Mylanta) 30 ml Q4HP PRN PO HEARTBURN/INDIGESTION 12/23/19 01:00 Chlorpromazine HCl (Thorazine) 100 mg Q6HP PRN PO AGITATION 12/28/19 14:00 12/28/19 14:00 DC Chlorpromazine HCl (Thorazine) 100 mg STAT STAT IM 12/29/19 13:02 12/29/19 13:04 DC 12/29/19 13:32 Chlorpromazine HCl (Thorazine) 150 mg Q6HP PRN PO AGITATION/anxiety 12/28/19 14:00 01/04/20 13:34 DC 01/04/20 09:25 Chlorpromazine HCl (Thorazine) 150 mg TID PO 01/04/20 16:00 01/10/20 20:50 Clozapine (Clozaril) 12.5 mg QHS PO 01/06/20 21:00 01/10/20 20:50 Diphenhydramine HCl (Benadryl) 50 mg Q4HP PRN PO ANXIETY/AGITATION 12/23/19 15:00 Diphenhydramine HCl (Benadryl) 50 mg STAT STAT IM 12/22/19 21:28 12/22/19 21:30 DC 12/22/19 22:03 Docusate Sodium (Colace) 100 mg DAILY PO 01/08/20 09:00 Fluphenazine HCl (Prolixin) 10 mg BID PO 12/23/19 09:00 12/28/19 09:42 DC Levothyroxine Sodium (Synthroid) 100 mcg DAILY@06 PO 12/24/19 06:00 01/11/20 06:00 [place] Carbonate (Eskalith Oral Solution) 300 mg BID PO 12/23/19 09:00 12/28/19 09:41 DC 12/28/19 09:35 [place] Carbonate (Eskalith Oral Solution) 450 mg BID PO 12/28/19 21:00 12/31/19 10:58 DC 12/31/19 08:37 [place] Carbonate ([place] Carbonate) 450 mg BID PO 12/31/19 21:00 01/10/20 20:49 Magnesium Hydroxide (Milk Of Magnesia) 30 ml DAILYPRN PRN PO CONSTIPATION 12/23/19 01:00 Trazodone HCl (Desyrel) 50 mg QHSP PRN PO INSOMNIA 12/23/19 01:00 Allergies Coded Allergies: Sulfa (Sulfonamide Antibiotics) (Verified Allergy, Severe, hives, 04/25/19) amoxicillin (Verified Allergy, Intermediate, rash, 04/25/19) azithromycin (Verified Allergy, Intermediate, rash, 04/25/19) levothyroxine (Verified Allergy, Unknown, 12/22/19) pt states it makes her collapse Review of Systems Review of Systems General: Denies: Fatigue Constitutional: Denies: Fever Pulmonary: Denies: Dyspnea, Cough Cardiovascular: Denies: Chest Pain, Palpitations Gastrointestinal: Denies: Nausea, Vomiting, Diarrhea, Constipation Neurological: Denies: Weakness, Numbness Mental Status Examination General Appearance: unkempt Build: average Demeanor: average Eye Contact: intense Activity: average Behavior: cooperative Speech: pressured Mood: elevated Affect: constricted, flat Thought Process: circumstantial Thought Content (Delusions): none reported Thought Content (Other): preoccupied Thought Content (Aggressive): none reported Perception (Hallucinations): none reported Perception (Other): none reported Cognition(Intelligence Est.): average Oriented: Awake, Alert Insight: poor Judgment: Poor Psychosis: Psychotic Perceptions Problem List Problems: (1) Schizoaffective disorder, bipolar type Status: Acute Response to Treatment: Improving Discussed With: Nurse Problem Specific Plan: Monitor Clinically Problem Text: Continue lithium, Thorazine and Clozaril at current doses, prophylactic laxatives started in order to avoid constipation. (2) Cocaine abuse Status: Chronic Problem Text: [place] more important as outpatient (3) Hypothyroidism Status: Chronic Response to Treatment: Improving Problem Specific Plan: Monitor Clinically Problem Text: now taking meds (4) Discharge planning issues Status: Chronic Problem Text: Discussed with AOT coordinator, potentially will see about transferring to long-term facility, as patient has very poor ability to stay safe is in outpatient stills quite symptomatic Medications Scheduled Benztropine Mesylate (Benztropine Mesylate) 0.5 Mg Tablet, 0.5 MG PO QHS, (Reported) Haloperidol (Haloperidol) 5 Mg Tablet, 5 MG PO BID, (Reported) Haloperidol Decanoate (Haloperidol Decanoate) 100 Mg/1 Ml Vial, 300 MG IM QMONTH, (Reported) Levothyroxine Sodium (Synthroid) 100 Mcg Tablet, 100 MCG PO DAILY, (Reported) [place] Carbonate ([place] Carbonate) 300 Mg Tablet, 300 MG PO DAILY, (Reported) [place] Carbonate ([place] Carbonate) 300 Mg Tablet, 600 MG PO QPM, (Reported) Trazodone HCl (Trazodone HCl) 50 Mg Tablet, 50 MG PO QHS, (Reported) Scheduled PRN Hydroxyzine HCl (Hydroxyzine HCl) 50 Mg Tablet, 50 MG PO Q4H PRN for ANXIETY/AGITATION, (Reported) LYRIC REID DO Jan 11, 2020 09:15
[2020-01-11] MEDS: LITHIUM CARBONATE 150 MG CAP PO SCH ×2 (10:17→20:12)
[2020-01-11] MEDS: chlorproMAZINE 25 MG TABLET PO SCH ×3 (10:17→20:13)
[2020-01-11] MEDS: DOCUSATE SODIUM 100 MG CAP PO SCH (10:17)
[2020-01-11] MEDS: cloZAPine 25 MG TAB (S0136) PO SCH (20:13)
[2020-01-11] MEDS: PILL CUTTER 1 EACH XX PRN (20:15)
[2020-01-12] MEDS: LEVOTHYROXINE 100MCG TABLET (0.1MG) PO SCH (06:12)
[2020-01-12] MEDS: DOCUSATE SODIUM 100 MG CAP PO SCH (09:00)
[2020-01-12] MEDS: chlorproMAZINE 25 MG TABLET PO SCH ×3 (09:10→21:25)
[2020-01-12] MEDS: LITHIUM CARBONATE 150 MG CAP PO SCH ×2 (09:10→21:25)
--- NOTE | 2020-01-12 09:16 | MHIPNPDOC ---
[facility] Progress Note Progress Note DATE OF SERVICE: 01/12/20 Events Overnight: none Group Attendance:: none Symptom changes (psych ROS): denies any symptoms, but is still quite distorted and psychotic Staff Report: reportedly still isolate to, unengaged and bizarre Medical ROS: Gen: -fevers, chills Cardio: -chest pain, palpations [place]: -SOB, cough GI: -N,V,D,C Neuro: -tremors, msk stiffness Derm: -rash MSE: General: poor Speech: rapid Thought processes: tangential Thought content: psychotic delusions Abstract reasoning, and computation: impaired Description of associations: imparied Description of abnormal or psychotic thoughts:Unclear, appears to have psychotic processes going on. Judgment: poor Insight: poor Orientation: Alert and orientated 3 Recent and remote memory: Intact Attention span and concentration: impaired secondary to thought process Fund of knowledge: unable to determine Mood: "Kristy" Affect: flat, little reactivity Vital Signs Vital Signs Date Time Temp Pulse Resp B/P (MAP) Pulse Ox O2 Delivery O2 Flow Rate FiO2 01/06/20 08:00 Room Air Current Medications Current Medications Medications (Trade) Dose Ordered Sig/Ruth Route PRN Reason Start Time Stop Time Status Last Admin Dose Admin Acetaminophen (Tylenol Tab) 650 mg Q6HP PRN PO HEADACHE or DISCOMFORT 12/23/19 01:00 Al Hydrox/Mg Hydrox/Simethicone (Mylanta) 30 ml Q4HP PRN PO HEARTBURN/INDIGESTION 12/23/19 01:00 Chlorpromazine HCl (Thorazine) 100 mg Q6HP PRN PO AGITATION 12/28/19 14:00 12/28/19 14:00 DC Chlorpromazine HCl (Thorazine) 100 mg STAT STAT IM 12/29/19 13:02 12/29/19 13:04 DC 12/29/19 13:32 Chlorpromazine HCl (Thorazine) 150 mg Q6HP PRN PO AGITATION/anxiety 12/28/19 14:00 01/04/20 13:34 DC 01/04/20 09:25 Chlorpromazine HCl (Thorazine) 150 mg TID PO 01/04/20 16:00 01/12/20 09:10 Clozapine (Clozaril) 12.5 mg QHS PO 01/06/20 21:00 01/11/20 20:13 Diphenhydramine HCl (Benadryl) 50 mg Q4HP PRN PO ANXIETY/AGITATION 12/23/19 15:00 Diphenhydramine HCl (Benadryl) 50 mg STAT STAT IM 12/22/19 21:28 12/22/19 21:30 DC 12/22/19 22:03 Docusate Sodium (Colace) 100 mg DAILY PO 01/08/20 09:00 Fluphenazine HCl (Prolixin) 10 mg BID PO 12/23/19 09:00 12/28/19 09:42 DC Levothyroxine Sodium (Synthroid) 100 mcg DAILY@06 PO 12/24/19 06:00 01/12/20 06:12 [place] Carbonate (Eskalith Oral Solution) 300 mg BID PO 12/23/19 09:00 12/28/19 09:41 DC 12/28/19 09:35 [place] Carbonate (Eskalith Oral Solution) 450 mg BID PO 12/28/19 21:00 12/31/19 10:58 DC 12/31/19 08:37 [place] Carbonate ([place] Carbonate) 450 mg BID PO 12/31/19 21:00 01/12/20 09:10 Magnesium Hydroxide (Milk Of Magnesia) 30 ml DAILYPRN PRN PO CONSTIPATION 12/23/19 01:00 Trazodone HCl (Desyrel) 50 mg QHSP PRN PO INSOMNIA 12/23/19 01:00 Allergies Coded Allergies: Sulfa (Sulfonamide Antibiotics) (Verified Allergy, Severe, hives, 04/25/19) amoxicillin (Verified Allergy, Intermediate, rash, 04/25/19) azithromycin (Verified Allergy, Intermediate, rash, 04/25/19) levothyroxine (Verified Allergy, Unknown, 12/22/19) pt states it makes her collapse Problems (1) Schizoaffective disorder, bipolar type Status: Acute Response to Treatment: Improving Discussed With: Nurse Problem Specific Plan: Monitor Clinically, Repeat Tests Problem Text: Continue Thorazine and lithium at current doses, will increase clozapine to 25 mg, CBC today (2) Cocaine abuse Status: Chronic (3) Hypothyroidism Status: Chronic Response to Treatment: Improving Problem Specific Plan: Monitor Clinically (4) Discharge planning issues Status: Chronic Problem Text: Likely will be referred to long-term treatment after discussion w art AOT coordinator Plan / VTE VTE Prophylaxis Ordered?: No Plan Diet: Continue Current Activity: Continue Current Diagnostics: Check Labs Anticipated Discharge: Psych LYRIC REID DO Jan 12, 2020 09:16
[2020-01-12 10:01] LABS: BASO % 0.3 % (0.0-1.0); EOS # 0.2 10^3/uL (0.0-0.5); EOS % 2.8 % (0.0-3.0); HEMATOCRIT 42.1 % (36.0-47.0); HEMOGLOBIN 13.8 g/dl (12.0-15.5); LYMPH # 2.3 10^3/uL (1.5-5.0); LYMPH % 34.5 % (24.0-44.0); MEAN CORPUSCULAR HEMOGLOBIN 28.3 pg (27.0-33.0); MEAN CORPUSCULAR HGB CONC 32.8 g/dl (32.0-36.5); MEAN CORPUSCULAR VOLUME 86.4 fl (80.0-96.0); MONO # 0.2 10^3/uL (0.0-0.8); MONO % 3.4 % (0.0-5.0); NEUTROPHILS % 58.7 % (36.0-66.0); PLATELET COUNT, AUTOMATED 342 10^3/uL (150-450); RED BLOOD COUNT 4.87 10^6/uL (4.00-5.40); WHITE BLOOD COUNT 6.8 10^3/uL (4.0-10.0)
[2020-01-12] MEDS: cloZAPine 25 MG TAB (S0136) PO SCH (21:25)
[2020-01-13] MEDS: LEVOTHYROXINE 100MCG TABLET (0.1MG) PO SCH (06:10)
[2020-01-13] MEDS: DOCUSATE SODIUM 100 MG CAP PO SCH (09:00)
[2020-01-13] MEDS: chlorproMAZINE 25 MG TABLET PO SCH ×3 (09:47→22:43)
[2020-01-13] MEDS: LITHIUM CARBONATE 150 MG CAP PO SCH ×2 (09:48→22:43)
[2020-01-13] MEDS: cloZAPine 25 MG TAB (S0136) PO SCH (22:43)
[2020-01-14] MEDS ORDERED: chlorproMAZINE INJ 50MG/2ML AMP (J3230) IM ONE (00:15)
[2020-01-14] MEDS ORDERED: diphenhydrAMINE 50MG/ML VIAL (J1200) IM ONE (00:15)
[2020-01-14] MEDS: LEVOTHYROXINE 100MCG TABLET (0.1MG) PO SCH (05:50)
[2020-01-14] MEDS: DOCUSATE SODIUM 100 MG CAP PO SCH (09:00)
--- NOTE | 2020-01-14 10:05 | MHIPNPDOC ---
[facility] Progress Note Progress Note DOS 01/14/2020 Patient met with today with nurse present for telehealth evaluation due to COVID Crisis Events Overnight: still bizarre, asking for injections becoming fairly upset w hen not given them Group Attendance:: at times Symptom changes (psych ROS): Affective:. Denies Psychotic: denies, but is still bizarre and paranoid saying that she is a "doctor and psychologist" Anxiety: denies Staff Report: staff report that the patient is still quite bizarre, paranoid and continually asked for injections Medical ROS: [Gen: -fevers, chills] [Cardio: -chest pain, palpations] [[place]: -SOB, cough] [GI: -N,V,D,C] [Neuro: -tremors, msk stiffness] [Derm: -rash] MSE: Vitals: Below General: poor Speech: rapid Thought processes: tangential Thought content: psychotic delusions Abstract reasoning, and computation: impaired Description of associations: imparied Description of abnormal or psychotic thoughts:Unclear, appears to have psychotic processes going on. Judgment: poor Insight: poor Orientation: Alert and orientated 3 Recent and remote memory: Intact Attention span and concentration: impaired secondary to thought process Fund of knowledge: unable to determine Mood: "I have seizures" Affect: flat, little reactivity Current Medications Current Medications Medications (Trade) Dose Ordered Sig/Ruth Route PRN Reason Start Time Stop Time Status Last Admin Dose Admin Acetaminophen (Tylenol Tab) 650 mg Q6HP PRN PO HEADACHE or DISCOMFORT 12/23/19 01:00 Al Hydrox/Mg Hydrox/Simethicone (Mylanta) 30 ml Q4HP PRN PO HEARTBURN/INDIGESTION 12/23/19 01:00 Chlorpromazine HCl (Thorazine) 100 mg Q6HP PRN PO AGITATION 12/28/19 14:00 12/28/19 14:00 DC Chlorpromazine HCl (Thorazine) 100 mg STAT STAT IM 12/29/19 13:02 12/29/19 13:04 DC 12/29/19 13:32 Chlorpromazine HCl (Thorazine) 150 mg Q6HP PRN PO AGITATION/anxiety 12/28/19 14:00 01/04/20 13:34 DC 01/04/20 09:25 Chlorpromazine HCl (Thorazine) 150 mg TID PO 01/04/20 16:00 01/13/20 22:43 Clozapine (Clozaril) 12.5 mg QHS PO 01/06/20 21:00 01/12/20 09:29 DC 01/11/20 20:13 Clozapine (Clozaril) 25 mg QHS PO 01/12/20 21:00 01/13/20 22:43 Diphenhydramine HCl (Benadryl) 50 mg Q4HP PRN PO ANXIETY/AGITATION 12/23/19 15:00 Diphenhydramine HCl (Benadryl) 50 mg STAT STAT IM 12/22/19 21:28 12/22/19 21:30 DC 12/22/19 22:03 Docusate Sodium (Colace) 100 mg DAILY PO 01/08/20 09:00 Fluphenazine HCl (Prolixin) 10 mg BID PO 12/23/19 09:00 12/28/19 09:42 DC Levothyroxine Sodium (Synthroid) 100 mcg DAILY@06 PO 12/24/19 06:00 01/14/20 05:50 [place] Carbonate (Eskalith Oral Solution) 300 mg BID PO 12/23/19 09:00 12/28/19 09:41 DC 12/28/19 09:35 [place] Carbonate (Eskalith Oral Solution) 450 mg BID PO 12/28/19 21:00 12/31/19 10:58 DC 12/31/19 08:37 [place] Carbonate ([place] Carbonate) 450 mg BID PO 12/31/19 21:00 01/13/20 22:43 Magnesium Hydroxide (Milk Of Magnesia) 30 ml DAILYPRN PRN PO CONSTIPATION 12/23/19 01:00 Trazodone HCl (Desyrel) 50 mg QHSP PRN PO INSOMNIA 12/23/19 01:00 Allergies Coded Allergies: Sulfa (Sulfonamide Antibiotics) (Verified Allergy, Severe, hives, 04/25/19) amoxicillin (Verified Allergy, Intermediate, rash, 04/25/19) azithromycin (Verified Allergy, Intermediate, rash, 04/25/19) levothyroxine (Verified Allergy, Unknown, 12/22/19) pt states it makes her collapse Problems (1) Schizoaffective disorder, bipolar type Status: Acute Response to Treatment: Improving Discussed With: Nurse Problem Specific Plan: Monitor Clinically, Repeat Tests Problem Text: continue Thorazine, lithium, CBC normal today, will increase Clozaril in accordance, patient not taking about prophylaxis, will monitor closely for any signs of constipation (2) Cocaine abuse Status: Chronic (3) Hypothyroidism Status: Chronic Response to Treatment: Improving Problem Specific Plan: Monitor Clinically (4) Discharge planning issues Status: Chronic Problem Text: currently seeking long-term placement Plan / VTE VTE Prophylaxis Ordered?: No Plan Diet: Continue Current Activity: Continue Current Anticipated Discharge: Psych (long-term treatment being sought) LYRIC REID DO Jan 14, 2020 10:05
[2020-01-14] MEDS: LITHIUM CARBONATE 150 MG CAP PO SCH ×2 (11:09→20:57)
[2020-01-14] MEDS: chlorproMAZINE 25 MG TABLET PO SCH ×3 (11:09→20:58)
[2020-01-14] MEDS: cloZAPine 25 MG TAB (S0136) PO SCH (20:57)
[2020-01-15] MEDS: LEVOTHYROXINE 100MCG TABLET (0.1MG) PO SCH (06:26)
[2020-01-15] MEDS: cloZAPine 25 MG TAB (S0136) PO SCH ×2 (09:53→21:03)
[2020-01-15] MEDS: chlorproMAZINE 25 MG TABLET PO SCH ×3 (09:54→21:03)
[2020-01-15] MEDS: LITHIUM CARBONATE 150 MG CAP PO SCH ×2 (09:54→21:03)
[2020-01-15] MEDS: DOCUSATE SODIUM 100 MG CAP PO SCH (10:00)
[2020-01-16] MEDS: LEVOTHYROXINE 100MCG TABLET (0.1MG) PO SCH (06:00)
[2020-01-16] MEDS: LITHIUM CARBONATE 150 MG CAP PO SCH ×3 (09:00→21:17)
[2020-01-16] MEDS: DOCUSATE SODIUM 100 MG CAP PO SCH (09:00)
[2020-01-16] MEDS: cloZAPine 25 MG TAB (S0136) PO SCH ×3 (09:00→21:17)
[2020-01-16] MEDS: chlorproMAZINE 25 MG TABLET PO SCH ×4 (09:20→21:17)
[2020-01-17] MEDS: LEVOTHYROXINE 100MCG TABLET (0.1MG) PO SCH (06:17)
[2020-01-17] MEDS: chlorproMAZINE 25 MG TABLET PO SCH ×3 (09:00→21:00)
[2020-01-17] MEDS: DOCUSATE SODIUM 100 MG CAP PO SCH (09:00)
[2020-01-17] MEDS: LITHIUM CARBONATE 150 MG CAP PO SCH ×2 (09:00→21:00)
[2020-01-17] MEDS: cloZAPine 25 MG TAB (S0136) PO SCH ×2 (09:00→21:00)
--- NOTE | 2020-01-17 10:04 | MHIPNPDOC ---
[facility] Progress Note Progress Note DOS: 01/17/2020 Patient met with today with nurse present for telehealth evaluation due to COVID Crisis Events Overnight: continues to demand Suboxone and injections Group Attendance:: none Symptom changes (psych ROS): Affective: patient refuses interview Psychotic: patient refuses interview Anxiety: patient refuses interview Staff Report: bizarre, poor hygiene Medical ROS: Patient refuses interview MSE: Vitals: Below Refused interview Current Medications Current Medications Medications (Trade) Dose Ordered Sig/Ruth Route PRN Reason Start Time Stop Time Status Last Admin Dose Admin Acetaminophen (Tylenol Tab) 650 mg Q6HP PRN PO HEADACHE or DISCOMFORT 12/23/19 01:00 Al Hydrox/Mg Hydrox/Simethicone (Mylanta) 30 ml Q4HP PRN PO HEARTBURN/INDIGESTION 12/23/19 01:00 Chlorpromazine HCl (Thorazine) 100 mg Q6HP PRN PO AGITATION 12/28/19 14:00 12/28/19 14:00 DC Chlorpromazine HCl (Thorazine) 100 mg STAT STAT IM 12/29/19 13:02 12/29/19 13:04 DC 12/29/19 13:32 Chlorpromazine HCl (Thorazine) 150 mg Q6HP PRN PO AGITATION/anxiety 12/28/19 14:00 01/04/20 13:34 DC 01/04/20 09:25 Chlorpromazine HCl (Thorazine) 150 mg TID PO 01/04/20 16:00 01/16/20 21:17 Clozapine (Clozaril) 12.5 mg QHS PO 01/06/20 21:00 01/12/20 09:29 DC 01/11/20 20:13 Clozapine (Clozaril) 25 mg BID PO 01/14/20 21:00 01/16/20 21:17 Clozapine (Clozaril) 25 mg QHS PO 01/12/20 21:00 01/14/20 10:58 DC 01/13/20 22:43 Diphenhydramine HCl (Benadryl) 50 mg Q4HP PRN PO ANXIETY/AGITATION 12/23/19 15:00 Diphenhydramine HCl (Benadryl) 50 mg STAT STAT IM 12/22/19 21:28 12/22/19 21:30 DC 12/22/19 22:03 Docusate Sodium (Colace) 100 mg DAILY PO 01/08/20 09:00 Fluphenazine HCl (Prolixin) 10 mg BID PO 12/23/19 09:00 12/28/19 09:42 DC Levothyroxine Sodium (Synthroid) 100 mcg DAILY@06 PO 12/24/19 06:00 01/17/20 06:17 [place] Carbonate (Eskalith Oral Solution) 300 mg BID PO 12/23/19 09:00 12/28/19 09:41 DC 12/28/19 09:35 [place] Carbonate (Eskalith Oral Solution) 450 mg BID PO 12/28/19 21:00 12/31/19 10:58 DC 12/31/19 08:37 [place] Carbonate ([place] Carbonate) 450 mg BID PO 12/31/19 21:00 01/16/20 21:17 Magnesium Hydroxide (Milk Of Magnesia) 30 ml DAILYPRN PRN PO CONSTIPATION 12/23/19 01:00 Trazodone HCl (Desyrel) 50 mg QHSP PRN PO INSOMNIA 12/23/19 01:00 Allergies Coded Allergies: Sulfa (Sulfonamide Antibiotics) (Verified Allergy, Severe, hives, 04/25/19) amoxicillin (Verified Allergy, Intermediate, rash, 04/25/19) azithromycin (Verified Allergy, Intermediate, rash, 04/25/19) levothyroxine (Verified Allergy, Unknown, 12/22/19) pt states it makes her collapse Problems (1) Schizoaffective disorder, bipolar type Status: Acute Response to Treatment: Worse Discussed With: Nurse Problem Specific Plan: Monitor Clinically, Repeat Tests Problem Text: Continue Thorazine, lithium and clozapine this time, will monitor CBC at the end of the week monitor for constipation (2) Cocaine abuse Status: Chronic (3) Hypothyroidism Status: Chronic Response to Treatment: Stable (4) Discharge planning issues Status: Chronic Problem Text: currently seeking long-term placement Plan / VTE VTE Prophylaxis Ordered?: No Plan Diet: Continue Current Activity: Continue Current Anticipated Discharge: Psych (long-term treatment being sought) LYRIC REID DO Jan 17, 2020 10:04
[2020-01-18] MEDS: LEVOTHYROXINE 100MCG TABLET (0.1MG) PO SCH (06:00)
[2020-01-18] MEDS: cloZAPine 25 MG TAB (S0136) PO SCH (09:00)
[2020-01-18] MEDS: DOCUSATE SODIUM 100 MG CAP PO SCH (09:00)
[2020-01-18] MEDS: LITHIUM CARBONATE 150 MG CAP PO SCH ×2 (09:00→21:00)
[2020-01-18] MEDS: chlorproMAZINE 25 MG TABLET PO SCH ×3 (09:00→21:00)
[2020-01-18] MEDS: haloperidoL 5 MG TAB PO SCH ×2 (09:00→21:00)
--- NOTE | 2020-01-18 09:29 | MHIPNPDOC ---
[facility] Progress Note Progress Note DOS: 01/17/2022 any Patient met with today with nurse present for telehealth evaluation due to COVID Crisis Events Overnight:[none] Group Attendance:: none Symptom changes (psych ROS): refuses interview Medical ROS: refuses interview MSE: Vitals: Below Refuses interview Current Medications Current Medications Medications (Trade) Dose Ordered Sig/Ruth Route PRN Reason Start Time Stop Time Status Last Admin Dose Admin Acetaminophen (Tylenol Tab) 650 mg Q6HP PRN PO HEADACHE or DISCOMFORT 12/23/19 01:00 Al Hydrox/Mg Hydrox/Simethicone (Mylanta) 30 ml Q4HP PRN PO HEARTBURN/INDIGESTION 12/23/19 01:00 Chlorpromazine HCl (Thorazine) 100 mg Q6HP PRN PO AGITATION 12/28/19 14:00 12/28/19 14:00 DC Chlorpromazine HCl (Thorazine) 100 mg STAT STAT IM 12/29/19 13:02 12/29/19 13:04 DC 12/29/19 13:32 Chlorpromazine HCl (Thorazine) 150 mg Q6HP PRN PO AGITATION/anxiety 12/28/19 14:00 01/04/20 13:34 DC 01/04/20 09:25 Chlorpromazine HCl (Thorazine) 150 mg TID PO 01/04/20 16:00 01/16/20 21:17 Clozapine (Clozaril) 12.5 mg QHS PO 01/06/20 21:00 01/12/20 09:29 DC 01/11/20 20:13 Clozapine (Clozaril) 25 mg BID PO 01/14/20 21:00 01/16/20 21:17 Clozapine (Clozaril) 25 mg QHS PO 01/12/20 21:00 01/14/20 10:58 DC 01/13/20 22:43 Diphenhydramine HCl (Benadryl) 50 mg Q4HP PRN PO ANXIETY/AGITATION 12/23/19 15:00 Diphenhydramine HCl (Benadryl) 50 mg STAT STAT IM 12/22/19 21:28 12/22/19 21:30 DC 12/22/19 22:03 Docusate Sodium (Colace) 100 mg DAILY PO 01/08/20 09:00 Fluphenazine HCl (Prolixin) 10 mg BID PO 12/23/19 09:00 12/28/19 09:42 DC Levothyroxine Sodium (Synthroid) 100 mcg DAILY@06 PO 12/24/19 06:00 01/17/20 06:17 [place] Carbonate (Eskalith Oral Solution) 300 mg BID PO 12/23/19 09:00 12/28/19 09:41 DC 12/28/19 09:35 [place] Carbonate (Eskalith Oral Solution) 450 mg BID PO 12/28/19 21:00 12/31/19 10:58 DC 12/31/19 08:37 [place] Carbonate ([place] Carbonate) 450 mg BID PO 12/31/19 21:00 01/16/20 21:17 Magnesium Hydroxide (Milk Of Magnesia) 30 ml DAILYPRN PRN PO CONSTIPATION 12/23/19 01:00 Trazodone HCl (Desyrel) 50 mg QHSP PRN PO INSOMNIA 12/23/19 01:00 Allergies Coded Allergies: Sulfa (Sulfonamide Antibiotics) (Verified Allergy, Severe, hives, 04/25/19) amoxicillin (Verified Allergy, Intermediate, rash, 04/25/19) azithromycin (Verified Allergy, Intermediate, rash, 04/25/19) levothyroxine (Verified Allergy, Unknown, 12/22/19) pt states it makes her collapse Problems (1) Schizoaffective disorder, bipolar type Status: Acute Response to Treatment: Worse Discussed With: Nurse Problem Specific Plan: Monitor Clinically, Repeat Tests Problem Text: Continue lithium and Thorazine, lithium level to be drawn. Discontinue cause role as it does not appear helpful and patient not taking bowel prophylaxis. Start Haldol 5 mg BID as reportedly had done well on this (2) Cocaine abuse Status: Chronic (3) Hypothyroidism Status: Chronic Response to Treatment: Stable Problem Specific Plan: Repeat Labs (4) Discharge planning issues Status: Chronic Problem Text: currently seeking long-term placement Plan / VTE VTE Prophylaxis Ordered?: No Plan Diet: Continue Current Activity: Continue Current Anticipated Discharge: Psych (long-term treatment being sought) LYRIC REID DO Jan 18, 2020 09:29
[2020-01-19] MEDS: LEVOTHYROXINE 100MCG TABLET (0.1MG) PO SCH (06:00)
[2020-01-19] MEDS: chlorproMAZINE 25 MG TABLET PO SCH ×3 (09:00→21:00)
[2020-01-19] MEDS: DOCUSATE SODIUM 100 MG CAP PO SCH (09:00)
[2020-01-19] MEDS: haloperidoL 5 MG TAB PO SCH ×2 (09:00→21:00)
[2020-01-19] MEDS: LITHIUM CARBONATE 150 MG CAP PO SCH ×2 (09:00→21:00)
--- NOTE | 2020-01-19 18:52 | MHIPNPDOC ---
[facility] Progress Note Progress Note DATE OF SERVICE: 01/19/20 HISTORY: As per Dr. Lucero: "The patient a 29 year old woman with a long psychiatric history and poor compliance with treatment, presents with emergent psychosis. When I saw the patient, she denied any fever or chills, palpitations, shortness of breath, diarrhea or dysuria. Patient stated that she had multiple seizures in the past and she was diagnosed with epilepsy, but I did not find any records about it." VITAL SIGNS: See below. NEW TEST RESULTS: See below CURRENT MEDICATIONS: See below. MENTAL STATUS EXAMINATION: The patient refused to be seen. She has been refusing her medications ASSESSMENT: According to staff members she has been refusing to take her medications, she says she is very manic at this time. I couldn't evaluate her, she refused to be seen. MANAGEMENT PLAN: As per Dr. Lucero TIME SPENT: 0 minutes. Current Medications Current Medications Medications (Trade) Dose Ordered Sig/Ruth Route PRN Reason Start Time Stop Time Status Last Admin Dose Admin Acetaminophen (Tylenol Tab) 650 mg Q6HP PRN PO HEADACHE or DISCOMFORT 12/23/19 01:00 Al Hydrox/Mg Hydrox/Simethicone (Mylanta) 30 ml Q4HP PRN PO HEARTBURN/INDIGESTION 12/23/19 01:00 Chlorpromazine HCl (Thorazine) 100 mg Q6HP PRN PO AGITATION 12/28/19 14:00 12/28/19 14:00 DC Chlorpromazine HCl (Thorazine) 100 mg STAT STAT IM 12/29/19 13:02 12/29/19 13:04 DC 12/29/19 13:32 Chlorpromazine HCl (Thorazine) 150 mg Q6HP PRN PO AGITATION/anxiety 12/28/19 14:00 01/04/20 13:34 DC 01/04/20 09:25 Chlorpromazine HCl (Thorazine) 150 mg TID PO 01/04/20 16:00 01/16/20 21:17 Clozapine (Clozaril) 12.5 mg QHS PO 01/06/20 21:00 01/12/20 09:29 DC 01/11/20 20:13 Clozapine (Clozaril) 25 mg BID PO 01/14/20 21:00 01/18/20 09:33 DC 01/16/20 21:17 Clozapine (Clozaril) 25 mg QHS PO 01/12/20 21:00 01/14/20 10:58 DC 01/13/20 22:43 Diphenhydramine HCl (Benadryl) 50 mg Q4HP PRN PO ANXIETY/AGITATION 12/23/19 15:00 Diphenhydramine HCl (Benadryl) 50 mg STAT STAT IM 12/22/19 21:28 12/22/19 21:30 DC 12/22/19 22:03 Docusate Sodium (Colace) 100 mg DAILY PO 01/08/20 09:00 Fluphenazine HCl (Prolixin) 10 mg BID PO 12/23/19 09:00 12/28/19 09:42 DC Haloperidol (Haldol) 5 mg BID PO 01/18/20 09:00 Levothyroxine Sodium (Synthroid) 100 mcg DAILY@06 PO 12/24/19 06:00 01/17/20 06:17 [place] Carbonate (Eskalith Oral Solution) 300 mg BID PO 12/23/19 09:00 12/28/19 09:41 DC 12/28/19 09:35 [place] Carbonate (Eskalith Oral Solution) 450 mg BID PO 12/28/19 21:00 12/31/19 10:58 DC 12/31/19 08:37 [place] Carbonate ([place] Carbonate) 450 mg BID PO 12/31/19 21:00 01/16/20 21:17 Magnesium Hydroxide (Milk Of Magnesia) 30 ml DAILYPRN PRN PO CONSTIPATION 12/23/19 01:00 Trazodone HCl (Desyrel) 50 mg QHSP PRN PO INSOMNIA 12/23/19 01:00 Allergies Coded Allergies: Sulfa (Sulfonamide Antibiotics) (Verified Allergy, Severe, hives, 04/25/19) amoxicillin (Verified Allergy, Intermediate, rash, 04/25/19) azithromycin (Verified Allergy, Intermediate, rash, 04/25/19) levothyroxine (Verified Allergy, Unknown, 12/22/19) pt states it makes her collapse LOBITO AGUERO MD Jan 19, 2020 18:43
[2020-01-19] MEDS ORDERED: chlorproMAZINE INJ 50MG/2ML AMP (J3230) IM ONE (20:00)
[2020-01-19] MEDS ORDERED: diphenhydrAMINE 50MG/ML VIAL (J1200) IM ONE (20:00)
[2020-01-20] MEDS: LEVOTHYROXINE 100MCG TABLET (0.1MG) PO SCH (05:51)
[2020-01-20 10:00] LABS: LITHIUM LEVEL < 0.20 MEQ/L (0.60-1.20)
[2020-01-20] MEDS: haloperidoL 5 MG TAB PO SCH ×2 (10:01→21:00)
[2020-01-20] MEDS: chlorproMAZINE 25 MG TABLET PO SCH ×3 (10:01→21:00)
[2020-01-20] MEDS: DOCUSATE SODIUM 100 MG CAP PO SCH (10:01)
[2020-01-20] MEDS: LITHIUM CARBONATE 150 MG CAP PO SCH ×2 (10:01→21:00)
--- NOTE | 2020-01-20 15:50 | MHIPNPDOC ---
[facility] Progress Note Progress Note DATE OF SERVICE: 01/20/20 THE PATIENT REFUSED TO MEET WITH ME TODAY TIME SPENT: 0 minutes. Laboratory Data 24H Labs Laboratory Tests 2 01/20/20 09:02: Thyroid Stimulating Hormone (TSH) 8.100H, [place] Level < 0.20L Current Medications Current Medications Medications (Trade) Dose Ordered Sig/Ruth Route PRN Reason Start Time Stop Time Status Last Admin Dose Admin Acetaminophen (Tylenol Tab) 650 mg Q6HP PRN PO HEADACHE or DISCOMFORT 12/23/19 01:00 Al Hydrox/Mg Hydrox/Simethicone (Mylanta) 30 ml Q4HP PRN PO HEARTBURN/INDIGESTION 12/23/19 01:00 Chlorpromazine HCl (Thorazine) 100 mg Q6HP PRN PO AGITATION 12/28/19 14:00 12/28/19 14:00 DC Chlorpromazine HCl (Thorazine) 100 mg STAT STAT IM 12/29/19 13:02 12/29/19 13:04 DC 12/29/19 13:32 Chlorpromazine HCl (Thorazine) 150 mg Q6HP PRN PO AGITATION/anxiety 12/28/19 14:00 01/04/20 13:34 DC 01/04/20 09:25 Chlorpromazine HCl (Thorazine) 150 mg TID PO 01/04/20 16:00 01/16/20 21:17 Clozapine (Clozaril) 12.5 mg QHS PO 01/06/20 21:00 01/12/20 09:29 DC 01/11/20 20:13 Clozapine (Clozaril) 25 mg BID PO 01/14/20 21:00 01/18/20 09:33 DC 01/16/20 21:17 Clozapine (Clozaril) 25 mg QHS PO 01/12/20 21:00 01/14/20 10:58 DC 01/13/20 22:43 Diphenhydramine HCl (Benadryl) 50 mg Q4HP PRN PO ANXIETY/AGITATION 12/23/19 15:00 Diphenhydramine HCl (Benadryl) 50 mg STAT STAT IM 12/22/19 21:28 12/22/19 21:30 DC 12/22/19 22:03 Docusate Sodium (Colace) 100 mg DAILY PO 01/08/20 09:00 Fluphenazine HCl (Prolixin) 10 mg BID PO 12/23/19 09:00 12/28/19 09:42 DC Haloperidol (Haldol) 5 mg BID PO 01/18/20 09:00 Levothyroxine Sodium (Synthroid) 100 mcg DAILY@06 PO 12/24/19 06:00 01/17/20 06:17 [place] Carbonate (Eskalith Oral Solution) 300 mg BID PO 12/23/19 09:00 12/28/19 09:41 DC 12/28/19 09:35 [place] Carbonate (Eskalith Oral Solution) 450 mg BID PO 12/28/19 21:00 12/31/19 10:58 DC 12/31/19 08:37 [place] Carbonate ([place] Carbonate) 450 mg BID PO 12/31/19 21:00 01/16/20 21:17 Magnesium Hydroxide (Milk Of Magnesia) 30 ml DAILYPRN PRN PO CONSTIPATION 12/23/19 01:00 Trazodone HCl (Desyrel) 50 mg QHSP PRN PO INSOMNIA 12/23/19 01:00 Allergies Coded Allergies: Sulfa (Sulfonamide Antibiotics) (Verified Allergy, Severe, hives, 04/25/19) amoxicillin (Verified Allergy, Intermediate, rash, 04/25/19) azithromycin (Verified Allergy, Intermediate, rash, 04/25/19) levothyroxine (Verified Allergy, Unknown, 12/22/19) pt states it makes her collapse LOBITO AGUERO MD Jan 20, 2020 15:50
[2020-01-21] MEDS: LEVOTHYROXINE 100MCG TABLET (0.1MG) PO SCH (06:00)
[2020-01-21] MEDS: haloperidoL 5 MG TAB PO SCH ×2 (09:00→21:00)
[2020-01-21] MEDS: LITHIUM CARBONATE 150 MG CAP PO SCH ×2 (09:00→21:00)
[2020-01-21] MEDS: chlorproMAZINE 25 MG TABLET PO SCH ×3 (09:00→21:00)
[2020-01-21] MEDS: DOCUSATE SODIUM 100 MG CAP PO SCH (09:00)
--- NOTE | 2020-01-21 09:22 | MHIPNPDOC ---
[facility] Progress Note Progress Note DOS: 2019 Patient met with today with nurse present for telehealth evaluation due to COVID Crisis Events Overnight: multiple episodes of vegetation Group Attendance:: none Symptom changes (psych ROS): refuses to me today Staff Report: increasingly bizarre or paranoid and unable to relay basic needs Medical ROS: Patient refuses interview MSE: Vitals: Below Patient refuses interview Current Medications Current Medications Medications (Trade) Dose Ordered Sig/Ruth Route PRN Reason Start Time Stop Time Status Last Admin Dose Admin Acetaminophen (Tylenol Tab) 650 mg Q6HP PRN PO HEADACHE or DISCOMFORT 12/23/19 01:00 Al Hydrox/Mg Hydrox/Simethicone (Mylanta) 30 ml Q4HP PRN PO HEARTBURN/INDIGESTION 12/23/19 01:00 Chlorpromazine HCl (Thorazine) 100 mg Q6HP PRN PO AGITATION 12/28/19 14:00 12/28/19 14:00 DC Chlorpromazine HCl (Thorazine) 100 mg STAT STAT IM 12/29/19 13:02 12/29/19 13:04 DC 12/29/19 13:32 Chlorpromazine HCl (Thorazine) 150 mg Q6HP PRN PO AGITATION/anxiety 12/28/19 14:00 01/04/20 13:34 DC 01/04/20 09:25 Chlorpromazine HCl (Thorazine) 150 mg TID PO 01/04/20 16:00 01/16/20 21:17 Clozapine (Clozaril) 12.5 mg QHS PO 01/06/20 21:00 01/12/20 09:29 DC 01/11/20 20:13 Clozapine (Clozaril) 25 mg BID PO 01/14/20 21:00 01/18/20 09:33 DC 01/16/20 21:17 Clozapine (Clozaril) 25 mg QHS PO 01/12/20 21:00 01/14/20 10:58 DC 01/13/20 22:43 Diphenhydramine HCl (Benadryl) 50 mg Q4HP PRN PO ANXIETY/AGITATION 12/23/19 15:00 Diphenhydramine HCl (Benadryl) 50 mg STAT STAT IM 12/22/19 21:28 12/22/19 21:30 DC 12/22/19 22:03 Docusate Sodium (Colace) 100 mg DAILY PO 01/08/20 09:00 Fluphenazine HCl (Prolixin) 10 mg BID PO 12/23/19 09:00 12/28/19 09:42 DC Haloperidol (Haldol) 5 mg BID PO 01/18/20 09:00 Levothyroxine Sodium (Synthroid) 100 mcg DAILY@06 PO 12/24/19 06:00 01/17/20 06:17 [place] Carbonate (Eskalith Oral Solution) 300 mg BID PO 12/23/19 09:00 12/28/19 09:41 DC 12/28/19 09:35 [place] Carbonate (Eskalith Oral Solution) 450 mg BID PO 12/28/19 21:00 12/31/19 10:58 DC 12/31/19 08:37 [place] Carbonate ([place] Carbonate) 450 mg BID PO 12/31/19 21:00 01/16/20 21:17 Magnesium Hydroxide (Milk Of Magnesia) 30 ml DAILYPRN PRN PO CONSTIPATION 12/23/19 01:00 Miscellaneous (Unresolved Clarification Entry) SEE LABEL COMMENTS DAILY XX 01/21/20 09:00 01/21/20 08:04 DC Trazodone HCl (Desyrel) 50 mg QHSP PRN PO INSOMNIA 12/23/19 01:00 Allergies Coded Allergies: Sulfa (Sulfonamide Antibiotics) (Verified Allergy, Severe, hives, 04/25/19) amoxicillin (Verified Allergy, Intermediate, rash, 04/25/19) azithromycin (Verified Allergy, Intermediate, rash, 04/25/19) levothyroxine (Verified Allergy, Unknown, 12/22/19) pt states it makes her collapse Problems (1) Schizoaffective disorder, bipolar type Status: Acute Response to Treatment: Worse Discussed With: Nurse Problem Specific Plan: Monitor Clinically, Repeat Tests Problem Text: Patient no longer taking medications, will need to pursue treatment of her objection (2) Cocaine abuse Status: Chronic (3) Hypothyroidism Status: Chronic Response to Treatment: Worse (4) Discharge planning issues Status: Chronic Problem Text: currently seeking long-term placement Plan / VTE VTE Prophylaxis Ordered?: No Plan Diet: Continue Current Activity: Continue Current Anticipated Discharge: Psych (long-term treatment being sought) LYRIC REID DO Jan 21, 2020 09:22
[2020-01-21] MEDS ORDERED: diphenhydrAMINE 50MG/ML VIAL (J1200) IM ONE (16:45)
[2020-01-21] MEDS ORDERED: chlorproMAZINE INJ 50MG/2ML AMP (J3230) IM ONE (16:45)
[2020-01-22] MEDS: LEVOTHYROXINE 100MCG TABLET (0.1MG) PO SCH (06:00)
[2020-01-22] MEDS: DOCUSATE SODIUM 100 MG CAP PO SCH (08:57)
[2020-01-22] MEDS: haloperidoL 5 MG TAB PO SCH ×2 (08:57→20:35)
[2020-01-22] MEDS: LITHIUM CARBONATE 150 MG CAP PO SCH ×2 (08:58→20:35)
[2020-01-22] MEDS: chlorproMAZINE 25 MG TABLET PO SCH ×3 (08:58→20:35)
[2020-01-22 10:00] VITALS: BP 143/84
[2020-01-22] MEDS ORDERED: diphenhydrAMINE 50MG/ML VIAL (J1200) IM ONE ×2 (13:00→22:00)
[2020-01-22] MEDS ORDERED: chlorproMAZINE INJ 50MG/2ML AMP (J3230) IM ONE ×2 (13:00→22:00)
[2020-01-23] MEDS ORDERED: HALOPERIDOL 5MG/ML VIAL (J1630 PER 1) IM STA ×2 (01:38→21:42)
[2020-01-23] MEDS ORDERED: LORazepam 2 MG/ML VIAL IM STA ×2 (01:38→21:42)
[2020-01-23] MEDS ORDERED: diphenhydrAMINE 50MG/ML VIAL (J1200) IM STA ×2 (01:38→19:56)
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
[2020-01-23 03:15] VITALS: BP 130/83
[2020-01-23] MEDS: LEVOTHYROXINE 100MCG TABLET (0.1MG) PO SCH (05:08)
[2020-01-23] MEDS: chlorproMAZINE 25 MG TABLET PO SCH ×3 (09:00→20:25)
[2020-01-23] MEDS: haloperidoL 5 MG TAB PO SCH ×2 (09:00→20:25)
[2020-01-23] MEDS: DOCUSATE SODIUM 100 MG CAP PO SCH (09:00)
[2020-01-23] MEDS: LITHIUM CARBONATE 150 MG CAP PO SCH ×2 (09:00→20:25)
[2020-01-23] MEDS ORDERED: chlorproMAZINE INJ 50MG/2ML AMP (J3230) IM STA (19:56)
[2020-01-23 23:25] VITALS: BP 120/72
[2020-01-23 23:40] VITALS: BP 121/72
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
--- NOTE | 2020-01-24 00:14 | MHPR ---
General Date: Jan 23, 2020 Time: 03:30 Post-Restraint Evaluation THE OUTCOME OF THE RESTRAINT: It was positive, patient was able to calm down, slept EFFECTIVENESS OF THE RESTRAINT: Mechanical and/or chemical: Positive]. ANY EVIDENCE THAT THE PATIENT WAS AFFECTED EMOTIONALLY: Not in a negative way. She was able to rest and sleep. When she woke up, she ate breakfast and remained on behavioral control for most of the day. ANY NEED FOR COUNSELING/ASSISTANCE: The patient received support by Nursing Staff before the restraints and when she woke up this morning. The patient had a good respnse to the restraints.. CHANGES IN TREATMENT PLAN: The patient will continue to receive the same medications via IM, Thorazine and Benadryl because she has refused to take her oral medications RECOMMENDATIONS FOR FUTURE INCIDENTS: Patient will have to go through a TOO because she is refusing medications and the only wy to prevent these incidents is by her being compliant with her medications. LOBITO AGUERO MD Jan 24, 2020 00:14
--- NOTE | 2020-01-24 00:20 | MHIR ---
General Date: Jan 23, 2020 Time Initiated: 21:42 Restraint Documentation Order/Evaluation FACE TO FACE: No. PHYSICIAN ASSESSMENT: The patient was agitated, was trying to get out of the Unit, was verbally aggressive, she was yelling and screaming in the middle of the hallways. Didn't respond to de escalation from staff, didn't respond to support provided by staff. REASON FOR RESTRAINT: Patient poses imminent danger of harming self or others: As above. DE-ESCALATION INTERVENTIONS ATTEMPTED BEFORE USE OF RESTRAINTS: Yes, de escalation was attempted, support was provided, re direction was attempted. MECHANICAL AND/OR CHEMICAL RESTRAINTS USED: Both. The chemical restraints used were Haldol 10 mgs. and Ativan 2 mgs Im. she didn't recive Benadryl at this time because approximately 2 hours before she had received Thorazine 150 mgs IM and Benadryl 50 mgs IM.. LENGTH OF TIME ORDERED IN RESTRAINTS: 240 minutes. WHEN TO DISCONTINUE RESTRAINTS: When the patient is no longer a threat to themselves or others Post evaluation of restraint due in 24 hours. LOBITO AGUERO MD Jan 24, 2020 00:20
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
[2020-01-24] MEDS: LEVOTHYROXINE 100MCG TABLET (0.1MG) PO SCH (06:00)
[2020-01-24] MEDS: chlorproMAZINE 25 MG TABLET PO SCH ×3 (09:00→21:00)
[2020-01-24] MEDS: DOCUSATE SODIUM 100 MG CAP PO SCH (09:00)
[2020-01-24] MEDS: LITHIUM CARBONATE 150 MG CAP PO SCH ×2 (09:00→21:00)
[2020-01-24] MEDS: haloperidoL 5 MG TAB PO SCH ×2 (09:00→21:00)
--- NOTE | 2020-01-24 10:18 | MHIPNPDOC ---
[facility] Progress Note Progress Note DATE OF SERVICE: 01/24/20 Subjective The patient refuses to meet today. She has been notably upset and irritable as well as bizarre and paranoid as reported by the staff. Unable to perform mental status examination on objective. Objective as above Assessment F25.9 Schizoaffective disorder, unspecified Plan Continue to offer medications, however patient will need treatment over objection, likely will perform treatment over objection assessment today, as patient has been completely uninterested in care and is highly bizarre. Shes likely to be decompensated. Will need further in-patient care and likely transfer to long-term at [place]. She generally is not doing well. Vital Signs Vital Signs Date Time Temp Pulse Resp B/P (MAP) Pulse Ox O2 Delivery O2 Flow Rate FiO2 01/23/20 23:40 96.9 96 16 121/72 100 Room Air Current Medications Current Medications Medications (Trade) Dose Ordered Sig/Ruth Route PRN Reason Start Time Stop Time Status Last Admin Dose Admin Acetaminophen (Tylenol Tab) 650 mg Q6HP PRN PO HEADACHE or DISCOMFORT 12/23/19 01:00 Al Hydrox/Mg Hydrox/Simethicone (Mylanta) 30 ml Q4HP PRN PO HEARTBURN/INDIGESTION 12/23/19 01:00 Chlorpromazine HCl (Thorazine) 100 mg Q6HP PRN PO AGITATION 12/28/19 14:00 12/28/19 14:00 DC Chlorpromazine HCl (Thorazine) 100 mg STAT STAT IM 12/29/19 13:02 12/29/19 13:04 DC 12/29/19 13:32 Chlorpromazine HCl (Thorazine) 150 mg Q6HP PRN PO AGITATION/anxiety 12/28/19 14:00 01/04/20 13:34 DC 01/04/20 09:25 Chlorpromazine HCl (Thorazine) 150 mg STAT STAT IM 01/23/20 19:56 01/23/20 19:58 DC 01/23/20 19:59 Chlorpromazine HCl (Thorazine) 150 mg TID PO 01/04/20 16:00 01/23/20 16:00 Clozapine (Clozaril) 12.5 mg QHS PO 01/06/20 21:00 01/12/20 09:29 DC 01/11/20 20:13 Clozapine (Clozaril) 25 mg BID PO 01/14/20 21:00 01/18/20 09:33 DC 01/16/20 21:17 Clozapine (Clozaril) 25 mg QHS PO 01/12/20 21:00 01/14/20 10:58 DC 01/13/20 22:43 Diphenhydramine HCl (Benadryl) 50 mg Q4HP PRN PO ANXIETY/AGITATION 12/23/19 15:00 Diphenhydramine HCl (Benadryl) 50 mg STAT STAT IM 12/22/19 21:28 12/22/19 21:30 DC 12/22/19 22:03 Diphenhydramine HCl (Benadryl) 50 mg STAT STAT IM 01/23/20 01:38 01/23/20 01:40 DC 01/23/20 01:49 Diphenhydramine HCl (Benadryl) 50 mg STAT STAT IM 01/23/20 19:56 01/23/20 19:58 DC 01/23/20 20:00 Docusate Sodium (Colace) 100 mg DAILY PO 01/08/20 09:00 Fluphenazine HCl (Prolixin) 10 mg BID PO 12/23/19 09:00 12/28/19 09:42 DC Haloperidol (Haldol) 5 mg BID PO 01/18/20 09:00 Haloperidol (Haldol) 10 mg STAT STAT IM 01/23/20 01:38 01/23/20 01:40 DC 01/23/20 01:49 Haloperidol (Haldol) 10 mg STAT STAT IM 01/23/20 21:42 01/23/20 21:44 DC 01/23/20 21:55 Levothyroxine Sodium (Synthroid) 100 mcg DAILY@06 PO 12/24/19 06:00 01/17/20 06:17 [place] Carbonate (Eskalith Oral Solution) 300 mg BID PO 12/23/19 09:00 12/28/19 09:41 DC 12/28/19 09:35 [place] Carbonate (Eskalith Oral Solution) 450 mg BID PO 12/28/19 21:00 12/31/19 10:58 DC 12/31/19 08:37 [place] Carbonate ([place] Carbonate) 450 mg BID PO 12/31/19 21:00 6/7/20 21:17 Lorazepam (Ativan) 2 mg STAT STAT IM 01/23/20 01:38 01/23/20 01:40 DC 01/23/20 01:49 Lorazepam (Ativan) 2 mg STAT STAT IM 01/23/20 21:42 01/23/20 21:44 DC 01/23/20 21:56 Magnesium Hydroxide (Milk Of Magnesia) 30 ml DAILYPRN PRN PO CONSTIPATION 12/23/19 01:00 Miscellaneous (Unresolved Clarification Entry) SEE LABEL COMMENTS DAILY XX 01/21/20 09:00 01/21/20 08:04 DC Trazodone HCl (Desyrel) 50 mg QHSP PRN PO INSOMNIA 12/23/19 01:00 Allergies Coded Allergies: Sulfa (Sulfonamide Antibiotics) (Verified Allergy, Severe, hives, 04/25/19) amoxicillin (Verified Allergy, Intermediate, rash, 04/25/19) azithromycin (Verified Allergy, Intermediate, rash, 04/25/19) levothyroxine (Verified Allergy, Unknown, 12/22/19) pt states it makes her collapse LYRIC REID DO Jan 24, 2020 10:18
[2020-01-24] MEDS ORDERED: chlorproMAZINE INJ 50MG/2ML AMP (J3230) IM ONE (21:15)
[2020-01-24] MEDS ORDERED: LORazepam 2 MG/ML VIAL IM STA (23:45)
[2020-01-24] MEDS ORDERED: HALOPERIDOL 5MG/ML VIAL (J1630 PER 1) IM STA (23:45)
[2020-01-25] MEDS ORDERED: HALOPERIDOL 5MG/ML VIAL (J1630 PER 1) IM STA (02:22)
[2020-01-25] MEDS: LEVOTHYROXINE 100MCG TABLET (0.1MG) PO SCH (06:00)
[2020-01-25] MEDS: DOCUSATE SODIUM 100 MG CAP PO SCH (09:00)
[2020-01-25] MEDS: LITHIUM CARBONATE 150 MG CAP PO SCH ×2 (09:00→21:00)
[2020-01-25] MEDS: chlorproMAZINE 25 MG TABLET PO SCH ×3 (09:00→21:00)
[2020-01-25] MEDS: haloperidoL 5 MG TAB PO SCH ×2 (09:00→21:00)
--- NOTE | 2020-01-25 09:21 | MHIPNPDOC ---
[facility] Progress Note Progress Note DATE OF SERVICE: 01/25/20 Subjective Patient refuses interview today. Nursing staff reported patient is still quite bizarre and paranoid. She needed to be coded multiple times last night due to aggression and bizarreness. Objective exam is not able to be completed today due to patient refusal. Objective Assessment F25.9 Schizoaffective disorder, unspecified F14.90 Cocaine use, unspecified, uncomplicated Plan Complete treatment over objection today and to pursue this at this time. Placement is still a complex issue of which will be pursued. [facility] vs. [facility] for long-term treatment. She likely will need fairly enhanced medication regiment. Well judiciously fill out treatment on form to include extensive options available as she has tried many medications and has done well in the past. 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 Vital Signs Vital Signs Date Time Temp Pulse Resp B/P (MAP) Pulse Ox O2 Delivery O2 Flow Rate FiO2 01/23/20 23:40 96.9 96 16 121/72 100 Room Air Current Medications Current Medications Medications (Trade) Dose Ordered Sig/Ruth Route PRN Reason Start Time Stop Time Status Last Admin Dose Admin Acetaminophen (Tylenol Tab) 650 mg Q6HP PRN PO HEADACHE or DISCOMFORT 12/23/19 01:00 Al Hydrox/Mg Hydrox/Simethicone (Mylanta) 30 ml Q4HP PRN PO HEARTBURN/INDIGESTION 12/23/19 01:00 Chlorpromazine HCl (Thorazine) 100 mg Q6HP PRN PO AGITATION 12/28/19 14:00 12/28/19 14:00 DC Chlorpromazine HCl (Thorazine) 100 mg STAT STAT IM 12/29/19 13:02 12/29/19 13:04 DC 12/29/19 13:32 Chlorpromazine HCl (Thorazine) 150 mg Q6HP PRN PO AGITATION/anxiety 12/28/19 14:00 01/04/20 13:34 DC 01/04/20 09:25 Chlorpromazine HCl (Thorazine) 150 mg STAT STAT IM 01/23/20 19:56 01/23/20 19:58 DC 01/23/20 19:59 Chlorpromazine HCl (Thorazine) 150 mg TID PO 01/04/20 16:00 01/23/20 16:00 Clozapine (Clozaril) 12.5 mg QHS PO 01/06/20 21:00 01/12/20 09:29 DC 01/11/20 20:13 Clozapine (Clozaril) 25 mg BID PO 01/14/20 21:00 01/18/20 09:33 DC 01/16/20 21:17 Clozapine (Clozaril) 25 mg QHS PO 01/12/20 21:00 01/14/20 10:58 DC 01/13/20 22:43 Diphenhydramine HCl (Benadryl) 50 mg Q4HP PRN PO ANXIETY/AGITATION 12/23/19 15:00 Diphenhydramine HCl (Benadryl) 50 mg STAT STAT IM 12/22/19 21:28 12/22/19 21:30 DC 12/22/19 22:03 Diphenhydramine HCl (Benadryl) 50 mg STAT STAT IM 01/23/20 01:38 01/23/20 01:40 DC 01/23/20 01:49 Diphenhydramine HCl (Benadryl) 50 mg STAT STAT IM 01/23/20 19:56 01/23/20 19:58 DC 01/23/20 20:00 Docusate Sodium (Colace) 100 mg DAILY PO 01/08/20 09:00 Fluphenazine HCl (Prolixin) 10 mg BID PO 12/23/19 09:00 12/28/19 09:42 DC Haloperidol (Haldol) 5 mg BID PO 01/18/20 09:00 Haloperidol (Haldol) 10 mg STAT STAT IM 01/23/20 01:38 01/23/20 01:40 DC 01/23/20 01:49 Haloperidol (Haldol) 10 mg STAT STAT IM 01/23/20 21:42 01/23/20 21:44 DC 01/23/20 21:55 Haloperidol (Haldol) 10 mg STAT STAT IM 01/24/20 23:45 01/24/20 23:47 DC 01/25/20 00:04 Haloperidol (Haldol) 10 mg STAT STAT IM 01/25/20 02:22 01/25/20 02:24 DC 01/25/20 02:27 Levothyroxine Sodium (Synthroid) 100 mcg DAILY@06 PO 12/24/19 06:00 01/17/20 06:17 [place] Carbonate (Eskalith Oral Solution) 300 mg BID PO 12/23/19 09:00 12/28/19 09:41 DC 12/28/19 09:35 [place] Carbonate (Eskalith Oral Solution) 450 mg BID PO 12/28/19 21:00 12/31/19 10:58 DC 12/31/19 08:37 [place] Carbonate ([place] Carbonate) 450 mg BID PO 12/31/19 21:00 01/16/20 21:17 Lorazepam (Ativan) 1 mg STAT STAT IM 01/24/20 23:45 01/24/20 23:47 DC 01/25/20 00:04 Lorazepam (Ativan) 2 mg STAT STAT IM 01/23/20 01:38 01/23/20 01:40 DC 01/23/20 01:49 Lorazepam (Ativan) 2 mg STAT STAT IM 01/23/20 21:42 01/23/20 21:44 DC 01/23/20 21:56 Magnesium Hydroxide (Milk Of Magnesia) 30 ml DAILYPRN PRN PO CONSTIPATION 12/23/19 01:00 Miscellaneous (Unresolved Clarification Entry) SEE LABEL COMMENTS DAILY XX 01/21/20 09:00 01/21/20 08:04 DC Trazodone HCl (Desyrel) 50 mg QHSP PRN PO INSOMNIA 12/23/19 01:00 Allergies Coded Allergies: Sulfa (Sulfonamide Antibiotics) (Verified Allergy, Severe, hives, 04/25/19) amoxicillin (Verified Allergy, Intermediate, rash, 04/25/19) azithromycin (Verified Allergy, Intermediate, rash, 04/25/19) levothyroxine (Verified Allergy, Unknown, 12/22/19) pt states it makes her collapse LYRIC REID DO Jan 25, 2020 09:21
--- NOTE | 2020-01-25 18:26 | MHIPNPDOC ---
[facility] Progress Note Progress Note DATE OF SERVICE: 01/25/2020 ADMIT DATE: December 23, 2019 at 00:52 ATTENDING DOCTOR: Dr.Jason Nic AGUIAR FAMILY CONTACTS: AOT coordinator, who reports patient has been Decompensating recently left long-term and is spent only a few days out of hospitals intermittently prior to becoming psychotic again due to noncompliance and/or substance use. SECTION I: CLINICAL SUMMARY: 29-year-old with a long history of schizoaffective presents psychotic and distorted after using cocaine and other stimulants, she last left long-term treatment for psychosis 4 days prior to her presentation. She presents thinking that she is another person only accepting medications by injection thinking that she has "seizures", she is highly delusional DIAGNOSIS: schizoaffective disorder SECTION II: Proposed Treatment. 1. Course of treatment recommended by treating physician: To prescribe an antipsychotic as the follows: - Invega 3 mg twice a day with the option of progressively increasing the dose up to 6 or 9 mg twice a day as tolerated for signs and symptoms of psychosis. Start Invega Sustenna 234mg loading dose IM injection and then, pending medication tolerance, Invega Sustenna 156mg maintenance dose IM injection for medication compliance 3 days later. If the patient would refuse taking medications orally, the patient should receive - Zyprexa IM 10 mg at various doses up to a total of 30 mg per day. The patient will then be maintained on Invega Sustenna monthly injection with doses up to 234 mg IM every month once she is discharged Cogentin 0.5 to 1mg daily up to a total of 4 mg per day in divided doses if Parkinsonian symptoms are evident. 2. Reasonable alternatives if any are: Haldol 5-10mg IM and Ativan 2mg IM in the event patient becomes a danger to herself or others during her treatment. Should paliperidone be unable to produce reasonable results in a reasonable period of time or cause excessive side effects, there are several alternative pr oposals -Haldol 5 mg up to a total of 20 mg daily in divided doses, if positive results Haldol long-acting injectable once monthly intramuscular 50 to 200mg as related to the current well-tolerated oral dose of Haldol, at a rate of 10 to 20 times oral dose approximated. If she refuses 5 mg up to 20 mg in divided doses of intramuscular immediate release Haldol -Risperidone 1 mg up to a total of 4 mg daily orally, with a dose between 25 to 50 mg intramuscular every 2 weeks. If she refuses risperidone if available of equivalent oral dose or Haldol/Zyprexa (whichever is better tolerated) IM in either 5-20mg or 5-30mg respectively. -Abilify 5 mg to 30 mg daily, and oral dosing either divider single, with Abilify made enough 400 mg monthly IM if tolerated well on oral dose. Haldol/Zyprexa (whichever is better tolerated) IM in either 5-20mg or 5-30mg respectively. -Additionally, propose that in cases such as this patient's where multiple previous medicines have been tried and have failed and she is progress to severe cases, at times is need to augment to use a combination of the above-mentioned medications to produce desirable results with the lowest chance of side effect thus request opportunity to utilize any combination of the above-mentioned medication regimens -Should all other treatment options fail or be poorly tolerated, propose involuntary electroconvulsive treatment with treatment frequency of daily for the 1st week then spaced out as appropriate, as either augmented with treatment options above or solo depending on discussion practitioner 3. Has the patient been tried on the proposed treatment?: The patient is been tried on nearly all well-known treatments, with positive results in the past, report on Haldol and paliperidone and number of others. However, poor compliance and her disease progressing make remission and her ultimate prognosis generally guarded at this time, needing more complex regiments in order to produce reasonable results. 4. Anticipated benefits to proposed treatment: Produce long-lasting and compliance enhancing regiment that helps remove the patient's aggressive tendencies while she psychosis, allowing her to be safe around others 5. Reasonable foreseeable adverse side effects: Parkinsonian symptoms, weight gain, sedation, side effects of neuroleptics. In rare cases, neuroleptic malignant syndrome and tardive dyskinesia may develop. However, the treatment team believes that the benefit outweighs any risk. 6. Prognosis without treatment: extremely poor, likely will be horribly psychotic and aggressive for an extended period of time SECTION III: Patient's capacity. 1. Explained to the patient: A. Condition:. Yes B. Proposed treatment: yes C. Anticipated benefits of treatment: yes D. Risks of adverse side effects of treatment: yes E. Availability of other treatments and comparison of benefits and risks: yes F. Risk of no treatment: yes 2. State the nature of the patient's objections to treatment: "I only have seizure disorders.", "I'm Kristy not Latrice, you must be thinking of my twin". 3. The patient's capacity: heavily impaired by psychosis SECTION IV: LIKELIHOOD FOR DANGEROUS BEHAVIOR: 1. The patient is believed to be dangerous to others at the hospital unless treated: yes, as her psychosis is gone were sees required restraints due to her aggressive and violent behavior 2. Is the patient believed to be likely dangerous to self if not treated: Yes. SECTION V: ANY OTHER INFORMATION: patient's initial acquiescence to taking medication is only the form of injectable chlorpromazine, however, it is generally dangerous in this form due to prolonged heart rhythms, risks of infe ction from multiple injection sites and has performed very poorly for control patient's psychosis, it is not ineffective treatment and I propose that it does not constitute her accepting treatment but simply being too distorted to tell the difference between reasonable treatment and bizarre delusions about the efficacy of multiple injections. Vital Signs Vital Signs Date Time Temp Pulse Resp B/P (MAP) Pulse Ox O2 Delivery O2 Flow Rate FiO2 01/23/20 23:40 96.9 96 16 121/72 100 Room Air Current Medications Current Medications Medications (Trade) Dose Ordered Sig/Ruth Route PRN Reason Start Time Stop Time Status Last Admin Dose Admin Acetaminophen (Tylenol Tab) 650 mg Q6HP PRN PO HEADACHE or DISCOMFORT 12/23/19 01:00 Al Hydrox/Mg Hydrox/Simethicone (Mylanta) 30 ml Q4HP PRN PO HEARTBURN/INDIGESTION 12/23/19 01:00 Chlorpromazine HCl (Thorazine) 100 mg Q6HP PRN PO AGITATION 12/28/19 14:00 12/28/19 14:00 DC Chlorpromazine HCl (Thorazine) 100 mg STAT STAT IM 12/29/19 13:02 12/29/19 13:04 DC 12/29/19 13:32 Chlorpromazine HCl (Thorazine) 150 mg Q6HP PRN PO AGITATION/anxiety 12/28/19 14:00 01/04/20 13:34 DC 01/04/20 09:25 Chlorpromazine HCl (Thorazine) 150 mg STAT STAT IM 01/23/20 19:56 01/23/20 19:58 DC 01/23/20 19:59 Chlorpromazine HCl (Thorazine) 150 mg TID PO 01/04/20 16:00 01/23/20 16:00 Clozapine (Clozaril) 12.5 mg QHS PO 01/06/20 21:00 01/12/20 09:29 DC 01/11/20 20:13 Clozapine (Clozaril) 25 mg BID PO 01/14/20 21:00 01/18/20 09:33 DC 01/16/20 21:17 Clozapine (Clozaril) 25 mg QHS PO 01/12/20 21:00 01/14/20 10:58 DC 01/13/20 22:43 Diphenhydramine HCl (Benadryl) 50 mg Q4HP PRN PO ANXIETY/AGITATION 12/23/19 15:00 Diphenhydramine HCl (Benadryl) 50 mg STAT STAT IM 12/22/19 21:28 12/22/19 21:30 DC 12/22/19 22:03 Diphenhydramine HCl (Benadryl) 50 mg STAT STAT IM 01/23/20 01:38 01/23/20 01:40 DC 01/23/20 01:49 Diphenhydramine HCl (Benadryl) 50 mg STAT STAT IM 01/23/20 19:56 01/23/20 19:58 DC 01/23/20 20:00 Docusate Sodium (Colace) 100 mg DAILY PO 01/08/20 09:00 Fluphenazine HCl (Prolixin) 10 mg BID PO 12/23/19 09:00 12/28/19 09:42 DC Haloperidol (Haldol) 5 mg BID PO 01/18/20 09:00 Haloperidol (Haldol) 10 mg STAT STAT IM 01/23/20 01:38 01/23/20 01:40 DC 01/23/20 01:49 Haloperidol (Haldol) 10 mg STAT STAT IM 01/23/20 21:42 01/23/20 21:44 DC 01/23/20 21:55 Haloperidol (Haldol) 10 mg STAT STAT IM 01/24/20 23:45 01/24/20 23:47 DC 01/25/20 00:04 Haloperidol (Haldol) 10 mg STAT STAT IM 01/25/20 02:22 01/25/20 02:24 DC 01/25/20 02:27 Levothyroxine Sodium (Synthroid) 100 mcg DAILY@06 PO 12/24/19 06:00 01/17/20 06:17 [place] Carbonate (Eskalith Oral Solution) 300 mg BID PO 12/23/19 09:00 12/28/19 09:41 DC 12/28/19 09:35 [place] Carbonate (Eskalith Oral Solution) 450 mg BID PO 12/28/19 21:00 12/31/19 10:58 DC 12/31/19 08:37 [place] Carbonate ([place] Carbonate) 450 mg BID PO 12/31/19 21:00 01/16/20 21:17 Lorazepam (Ativan) 1 mg STAT STAT IM 01/24/20 23:45 01/24/20 23:47 DC 01/25/20 00:04 Lorazepam (Ativan) 2 mg STAT STAT IM 01/23/20 01:38 01/23/20 01:40 DC 01/23/20 01:49 Lorazepam (Ativan) 2 mg STAT STAT IM 01/23/20 21:42 01/23/20 21:44 DC 01/23/20 21:56 Magnesium Hydroxide (Milk Of Magnesia) 30 ml DAILYPRN PRN PO CONSTIPATION 12/23/19 01:00 Miscellaneous (Unresolved Clarification Entry) SEE LABEL COMMENTS DAILY XX 01/21/20 09:00 01/21/20 08:04 DC Trazodone HCl (Desyrel) 50 mg QHSP PRN PO INSOMNIA 12/23/19 01:00 Allergies Coded Allergies: Sulfa (Sulfonamide Antibiotics) (Verified Allergy, Severe, hives, 04/25/19) amoxicillin (Verified Allergy, Intermediate, rash, 04/25/19) azithromycin (Verified Allergy, Intermediate, rash, 04/25/19) levothyroxine (Verified Allergy, Unknown, 12/22/19) pt states it makes her collapse LYRIC REID DO Jan 25, 2020 18:26
[2020-01-26] MEDS ORDERED: HALOPERIDOL 5MG/ML VIAL (J1630 PER 1) IM ONE (00:30)
[2020-01-26] MEDS ORDERED: LORazepam 2 MG/ML VIAL IM ONE (00:30)
[2020-01-26] MEDS ORDERED: chlorproMAZINE INJ 50MG/2ML AMP (J3230) IM ONE (03:00)
[2020-01-26] MEDS: LEVOTHYROXINE 100MCG TABLET (0.1MG) PO SCH (05:58)
[2020-01-26] MEDS: LITHIUM CARBONATE 150 MG CAP PO SCH ×2 (09:00→20:43)
[2020-01-26] MEDS: DOCUSATE SODIUM 100 MG CAP PO SCH (09:00)
[2020-01-26] MEDS: haloperidoL 5 MG TAB PO SCH ×2 (09:00→20:43)
[2020-01-26] MEDS: chlorproMAZINE 25 MG TABLET PO SCH ×3 (09:12→20:43)
--- NOTE | 2020-01-26 10:27 | MHIPNPDOC ---
[facility] Progress Note Progress Note DOS: 01/26/2020 Patient met with today with nurse present for telehealth evaluation due to COVID Crisis Events Overnight: multiple episodes of agitation needing IMs Group Attendance:: none Symptom changes (psych ROS): refused to meet with provider Staff Report: bizarre and aggressive Medical ROS: Refused to meet with provider MSE: Vitals: Below Refused me with provider Vital Signs Vital Signs Date Time Temp Pulse Resp B/P (MAP) Pulse Ox O2 Delivery O2 Flow Rate FiO2 01/23/20 23:40 96.9 96 16 121/72 100 Room Air Current Medications Current Medications Medications (Trade) Dose Ordered Sig/Ruth Route PRN Reason Start Time Stop Time Status Last Admin Dose Admin Acetaminophen (Tylenol Tab) 650 mg Q6HP PRN PO HEADACHE or DISCOMFORT 12/23/19 01:00 Al Hydrox/Mg Hydrox/Simethicone (Mylanta) 30 ml Q4HP PRN PO HEARTBURN/INDIGESTION 12/23/19 01:00 Chlorpromazine HCl (Thorazine) 100 mg Q6HP PRN PO AGITATION 12/28/19 14:00 12/28/19 14:00 DC Chlorpromazine HCl (Thorazine) 100 mg STAT STAT IM 12/29/19 13:02 12/29/19 13:04 DC 12/29/19 13:32 Chlorpromazine HCl (Thorazine) 150 mg Q6HP PRN PO AGITATION/anxiety 12/28/19 14:00 01/04/20 13:34 DC 01/04/20 09:25 Chlorpromazine HCl (Thorazine) 150 mg STAT STAT IM 01/23/20 19:56 01/23/20 19:58 DC 01/23/20 19:59 Chlorpromazine HCl (Thorazine) 150 mg TID PO 01/04/20 16:00 01/26/20 09:12 Clozapine (Clozaril) 12.5 mg QHS PO 01/06/20 21:00 01/12/20 09:29 DC 01/11/20 20:13 Clozapine (Clozaril) 25 mg BID PO 01/14/20 21:00 01/18/20 09:33 DC 01/16/20 21:17 Clozapine (Clozaril) 25 mg QHS PO 01/12/20 21:00 01/14/20 10:58 DC 01/13/20 22:43 Diphenhydramine HCl (Benadryl) 50 mg Q4HP PRN PO ANXIETY/AGITATION 12/23/19 15:00 Diphenhydramine HCl (Benadryl) 50 mg STAT STAT IM 12/22/19 21:28 12/22/19 21:30 DC 12/22/19 22:03 Diphenhydramine HCl (Benadryl) 50 mg STAT STAT IM 01/23/20 01:38 01/23/20 01:40 DC 01/23/20 01:49 Diphenhydramine HCl (Benadryl) 50 mg STAT STAT IM 01/23/20 19:56 01/23/20 19:58 DC 01/23/20 20:00 Docusate Sodium (Colace) 100 mg DAILY PO 01/08/20 09:00 Fluphenazine HCl (Prolixin) 10 mg BID PO 12/23/19 09:00 12/28/19 09:42 DC Haloperidol (Haldol) 5 mg BID PO 01/18/20 09:00 Haloperidol (Haldol) 10 mg STAT STAT IM 01/23/20 01:38 01/23/20 01:40 DC 01/23/20 01:49 Haloperidol (Haldol) 10 mg STAT STAT IM 01/23/20 21:42 01/23/20 21:44 DC 01/23/20 21:55 Haloperidol (Haldol) 10 mg STAT STAT IM 01/24/20 23:45 01/24/20 23:47 DC 01/25/20 00:04 Haloperidol (Haldol) 10 mg STAT STAT IM 01/25/20 02:22 01/25/20 02:24 DC 01/25/20 02:27 Levothyroxine Sodium (Synthroid) 100 mcg DAILY@06 PO 12/24/19 06:00 01/17/20 06:17 [place] Carbonate (Eskalith Oral Solution) 300 mg BID PO 12/23/19 09:00 12/28/19 09:41 DC 12/28/19 09:35 [place] Carbonate (Eskalith Oral Solution) 450 mg BID PO 12/28/19 21:00 12/31/19 10:58 DC 12/31/19 08:37 [place] Carbonate ([place] Carbonate) 450 mg BID PO 12/31/19 21:00 01/16/20 21:17 Lorazepam (Ativan) 1 mg STAT STAT IM 01/24/20 23:45 01/24/20 23:47 DC 01/25/20 00:04 Lorazepam (Ativan) 2 mg STAT STAT IM 01/23/20 01:38 01/23/20 01:40 DC 01/23/20 01:49 Lorazepam (Ativan) 2 mg STAT STAT IM 01/23/20 21:42 01/23/20 21:44 DC 01/23/20 21:56 Magnesium Hydroxide (Milk Of Magnesia) 30 ml DAILYPRN PRN PO CONSTIPATION 12/23/19 01:00 Miscellaneous (Unresolved Clarification Entry) SEE LABEL COMMENTS DAILY XX 01/21/20 09:00 01/21/20 08:04 DC Trazodone HCl (Desyrel) 50 mg QHSP PRN PO INSOMNIA 12/23/19 01:00 Allergies Coded Allergies: Sulfa (Sulfonamide Antibiotics) (Verified Allergy, Severe, hives, 04/25/19) amoxicillin (Verified Allergy, Intermediate, rash, 04/25/19) azithromycin (Verified Allergy, Intermediate, rash, 04/25/19) levothyroxine (Verified Allergy, Unknown, 12/22/19) pt states it makes her collapse Problems (1) Schizoaffective disorder, bipolar type Status: Acute Response to Treatment: Worse Discussed With: Nurse Problem Specific Plan: Monitor Clinically, Repeat Tests Problem Text: Patient no longer taking medications, will need to pursue treatment of over objection (2) Cocaine abuse Status: Chronic (3) Hypothyroidism Status: Chronic Response to Treatment: Worse (4) Discharge planning issues Status: Chronic Problem Text: currently seeking long-term placement Plan / VTE VTE Prophylaxis Ordered?: No Plan Diet: Continue Current Activity: Continue Current Anticipated Discharge: Psych (long-term treatment being sought) LYRIC REID DO Jan 26, 2020 10:27
[2020-01-26] MEDS ORDERED: LORazepam 2 MG/ML VIAL IM STA (16:38)
[2020-01-26] MEDS ORDERED: diphenhydrAMINE 50MG/ML VIAL (J1200) IM STA (16:38)
[2020-01-26] MEDS ORDERED: HALOPERIDOL 5MG/ML VIAL (J1630 PER 1) IM STA (16:50)
[2020-01-26] MEDS ORDERED: LORazepam 2 MG/ML VIAL As Ordered ONE (16:51)
[2020-01-27] MEDS: LEVOTHYROXINE 100MCG TABLET (0.1MG) PO SCH (05:56)
[2020-01-27] MEDS: haloperidoL 5 MG TAB PO SCH ×2 (09:00→21:00)
[2020-01-27] MEDS: chlorproMAZINE 25 MG TABLET PO SCH ×3 (09:00→21:00)
[2020-01-27] MEDS: LITHIUM CARBONATE 150 MG CAP PO SCH ×2 (09:00→21:00)
[2020-01-27] MEDS: DOCUSATE SODIUM 100 MG CAP PO SCH (09:00)
--- NOTE | 2020-01-27 09:21 | MHIPNPDOC ---
[facility] Progress Note Progress Note Unable to see patient as telehealth couldn't be arranged after multiple attempts to reach unit, discussed with belt and link shop supervisor, unable to complete assessment. Vital Signs Vital Signs Date Time Temp Pulse Resp B/P (MAP) Pulse Ox O2 Delivery O2 Flow Rate FiO2 01/23/20 23:40 96.9 96 16 121/72 100 Room Air Current Medications Current Medications Medications (Trade) Dose Ordered Sig/Ruth Route PRN Reason Start Time Stop Time Status Last Admin Dose Admin Acetaminophen (Tylenol Tab) 650 mg Q6HP PRN PO HEADACHE or DISCOMFORT 12/23/19 01:00 Al Hydrox/Mg Hydrox/Simethicone (Mylanta) 30 ml Q4HP PRN PO HEARTBURN/INDIGESTION 12/23/19 01:00 Chlorpromazine HCl (Thorazine) 100 mg Q6HP PRN PO AGITATION 12/28/19 14:00 12/28/19 14:00 DC Chlorpromazine HCl (Thorazine) 100 mg STAT STAT IM 12/29/19 13:02 12/29/19 13:04 DC 12/29/19 13:32 Chlorpromazine HCl (Thorazine) 150 mg Q6HP PRN PO AGITATION/anxiety 12/28/19 14:00 01/04/20 13:34 DC 01/04/20 09:25 Chlorpromazine HCl (Thorazine) 150 mg STAT STAT IM 01/23/20 19:56 01/23/20 19:58 DC 01/23/20 19:59 Chlorpromazine HCl (Thorazine) 150 mg TID PO 01/04/20 16:00 01/26/20 09:12 Clozapine (Clozaril) 12.5 mg QHS PO 01/06/20 21:00 01/12/20 09:29 DC 01/11/20 20:13 Clozapine (Clozaril) 25 mg BID PO 01/14/20 21:00 01/18/20 09:33 DC 01/16/20 21:17 Clozapine (Clozaril) 25 mg QHS PO 01/12/20 21:00 01/14/20 10:58 DC 01/13/20 22:43 Diphenhydramine HCl (Benadryl) 50 mg Q4HP PRN PO ANXIETY/AGITATION 12/23/19 15:00 Diphenhydramine HCl (Benadryl) 50 mg STAT STAT IM 12/22/19 21:28 12/22/19 21:30 DC 12/22/19 22:03 Diphenhydramine HCl (Benadryl) 50 mg STAT STAT IM 01/23/20 01:38 01/23/20 01:40 DC 01/23/20 01:49 Diphenhydramine HCl (Benadryl) 50 mg STAT STAT IM 01/23/20 19:56 01/23/20 19:58 DC 01/23/20 20:00 Diphenhydramine HCl (Benadryl) 50 mg STAT STAT IM 01/26/20 16:38 01/26/20 16:42 DC 01/26/20 16:59 Docusate Sodium (Colace) 100 mg DAILY PO 01/08/20 09:00 Fluphenazine HCl (Prolixin) 10 mg BID PO 12/23/19 09:00 12/28/19 09:42 DC Haloperidol (Haldol) 5 mg BID PO 01/18/20 09:00 Haloperidol (Haldol) 10 mg STAT STAT IM 01/23/20 01:38 01/23/20 01:40 DC 01/23/20 01:49 Haloperidol (Haldol) 10 mg STAT STAT IM 01/23/20 21:42 01/23/20 21:44 DC 01/23/20 21:55 Haloperidol (Haldol) 10 mg STAT STAT IM 01/24/20 23:45 01/24/20 23:47 DC 01/25/20 00:04 Haloperidol (Haldol) 10 mg STAT STAT IM 01/25/20 02:22 01/25/20 02:24 DC 01/25/20 02:27 Haloperidol (Haldol) 10 mg STAT STAT IM 01/26/20 16:50 01/26/20 16:52 DC 01/26/20 16:58 Haloperidol (Haldol) 10 mg STAT STAT PO 01/26/20 16:38 01/26/20 16:52 DC Levothyroxine Sodium (Synthroid) 100 mcg DAILY@06 PO 12/24/19 06:00 01/17/20 06:17 [place] Carbonate (Eskalith Oral Solution) 300 mg BID PO 12/23/19 09:00 12/28/19 09:41 DC 12/28/19 09:35 [place] Carbonate (Eskalith Oral Solution) 450 mg BID PO 12/28/19 21:00 12/31/19 10:58 DC 12/31/19 08:37 [place] Carbonate ([place] Carbonate) 450 mg BID PO 12/31/19 21:00 01/16/20 21:17 Lorazepam (Ativan) 1 mg STAT STAT IM 01/24/20 23:45 01/24/20 23:47 DC 01/25/20 00:04 Lorazepam (Ativan) 2 mg STAT STAT IM 01/23/20 01:38 01/23/20 01:40 DC 01/23/20 01:49 Lorazepam (Ativan) 2 mg STAT STAT IM 01/23/20 21:42 01/23/20 21:44 DC 01/23/20 21:56 Lorazepam (Ativan) 2 mg STAT STAT IM 01/26/20 16:38 01/26/20 16:42 DC 01/26/20 16:59 Magnesium Hydroxide (Milk Of Magnesia) 30 ml DAILYPRN PRN PO CONSTIPATION 12/23/19 01:00 Miscellaneous (Unresolved Clarification Entry) SEE LABEL COMMENTS DAILY XX 01/21/20 09:00 01/21/20 08:04 DC Trazodone HCl (Desyrel) 50 mg QHSP PRN PO INSOMNIA 12/23/19 01:00 Allergies Coded Allergies: Sulfa (Sulfonamide Antibiotics) (Verified Allergy, Severe, hives, 04/25/19) amoxicillin (Verified Allergy, Intermediate, rash, 04/25/19) azithromycin (Verified Allergy, Intermediate, rash, 04/25/19) levothyroxine (Verified Allergy, Unknown, 12/22/19) pt states it makes her collapse LYRIC REID DO Jan 27, 2020 09:21
[2020-01-27] MEDS ORDERED: diphenhydrAMINE 50MG/ML VIAL (J1200) IM STA (20:17)
[2020-01-27] MEDS ORDERED: LORazepam 2 MG/ML VIAL IM STA (20:17)
[2020-01-27] MEDS ORDERED: HALOPERIDOL 5MG/ML VIAL (J1630 PER 1) IM STA (20:17)
[2020-01-27] MEDS ORDERED: HALOPERIDOL 5MG/ML VIAL (J1630 PER 1) As Ordered ONE (20:20)
--- NOTE | 2020-01-27 20:24 | IPNPDOC ---
Date Seen The patient was seen on 01/27/20. Progress Note Code 25 was called on the patient, upon my arrival patient was already in four point restraints. Patient has pulled far alarm and continues to have aggressive, psychotic behavior towards staff. On-call psychiatrist was called by inpatient mental health unit staff and medications were ordered by psychiatrist. Patient is ordered to receive Ativan 2 mg, Benadryl 50 mg and Haldol 10 mg. Patient is silent during my evaluation, sitting up and staring at the wall, will not answer any of my questions or follow commands. Patient appears comfortable, no further intervention needed from internal medicine aspect. VS, I&O, 24H, Fishbone Vital Signs/I&O Vital Signs Date Time Temp Pulse Resp B/P (MAP) Pulse Ox O2 Delivery O2 Flow Rate FiO2 01/23/20 23:40 96.9 96 16 121/72 100 Room Air TABBY BALDERRAMA MD Jan 27, 2020 20:24
[2020-01-27 22:00] VITALS: BP 130/88
[2020-01-27 22:15] VITALS: BP 132/72
[2020-01-27] MEDS ORDERED: chlorproMAZINE INJ 50MG/2ML AMP (J3230) IM STA (22:16)
[2020-01-28] MEDS: LEVOTHYROXINE 100MCG TABLET (0.1MG) PO SCH (06:00)
[2020-01-28] MEDS: DOCUSATE SODIUM 100 MG CAP PO SCH (09:00)
--- NOTE | 2020-01-28 09:59 | MHIPNPDOC ---
[facility] Progress Note Progress Note DATE OF SERVICE: 01/28/20 Subjective HPI: Patient refused to meet with the provider today. Stall reports that patient is still quite bizarre and paranoid. As well as needing to be coated on a near regular basis. My diagnosis is schizoaffective disorder with current episode manic. Objective Appearance: For objective exam it is unable to be completed due to patients refusal. Assessment F25.9 Schizoaffective disorder, unspecified F30.2 Manic episode, severe with psychotic symptoms Plan The patient is still quite impaired and psychotic. We will need to have treatmen t over objection. Which is currently being coordinated. We will continue to offer medications in the interim. Assuming she gets some more insight in order to take them on cooperative treatment. At this time, we will need a long-term care as previously discussed. Vital Signs Vital Signs Date Time Temp Pulse Resp B/P (MAP) Pulse Ox O2 Delivery O2 Flow Rate FiO2 01/27/20 22:15 97.5 86 16 132/72 Room Air 01/23/20 23:40 100 Current Medications Current Medications Medications (Trade) Dose Ordered Sig/Ruth Route PRN Reason Start Time Stop Time Status Last Admin Dose Admin Acetaminophen (Tylenol Tab) 650 mg Q6HP PRN PO HEADACHE or DISCOMFORT 12/23/19 01:00 Al Hydrox/Mg Hydrox/Simethicone (Mylanta) 30 ml Q4HP PRN PO HEARTBURN/INDIGESTION 12/23/19 01:00 Chlorpromazine HCl (Thorazine) 100 mg Q6HP PRN PO AGITATION 12/28/19 14:00 12/28/19 14:00 DC Chlorpromazine HCl (Thorazine) 100 mg STAT STAT IM 12/29/19 13:02 12/29/19 13:04 DC 12/29/19 13:32 Chlorpromazine HCl (Thorazine) 150 mg Q6HP PRN PO AGITATION/anxiety 12/28/19 14:00 01/04/20 13:34 DC 01/04/20 09:25 Chlorpromazine HCl (Thorazine) 150 mg STAT STAT IM 01/23/20 19:56 01/23/20 19:58 DC 01/23/20 19:59 Chlorpromazine HCl (Thorazine) 150 mg STAT STAT IM 01/27/20 22:16 01/27/20 22:17 DC 01/27/20 22:54 Chlorpromazine HCl (Thorazine) 150 mg TID PO 01/04/20 16:00 01/26/20 09:12 Clozapine (Clozaril) 12.5 mg QHS PO 01/06/20 21:00 01/12/20 09:29 DC 01/11/20 20:13 Clozapine (Clozaril) 25 mg BID PO 01/14/20 21:00 01/18/20 09:33 DC 01/16/20 21:17 Clozapine (Clozaril) 25 mg QHS PO 01/12/20 21:00 01/14/20 10:58 DC 01/13/20 22:43 Diphenhydramine HCl (Benadryl) 50 mg Q4HP PRN PO ANXIETY/AGITATION 12/23/19 15:00 Diphenhydramine HCl (Benadryl) 50 mg STAT STAT IM 12/22/19 21:28 12/22/19 21:30 DC 12/22/19 22:03 Diphenhydramine HCl (Benadryl) 50 mg STAT STAT IM 01/23/20 01:38 01/23/20 01:40 DC 01/23/20 01:49 Diphenhydramine HCl (Benadryl) 50 mg STAT STAT IM 01/23/20 19:56 01/23/20 19:58 DC 01/23/20 20:00 Diphenhydramine HCl (Benadryl) 50 mg STAT STAT IM 01/26/20 16:38 01/26/20 16:42 DC 01/26/20 16:59 Diphenhydramine HCl (Benadryl) 50 mg STAT STAT IM 01/27/20 20:17 01/27/20 20:20 DC 01/27/20 20:32 Docusate Sodium (Colace) 100 mg DAILY PO 01/08/20 09:00 Fluphenazine HCl (Prolixin) 10 mg BID PO 12/23/19 09:00 12/28/19 09:42 DC Haloperidol (Haldol) 5 mg BID PO 01/18/20 09:00 Haloperidol (Haldol) 10 mg STAT STAT IM 01/23/20 01:38 01/23/20 01:40 DC 01/23/20 01:49 Haloperidol (Haldol) 10 mg STAT STAT IM 01/23/20 21:42 01/23/20 21:44 DC 01/23/20 21:55 Haloperidol (Haldol) 10 mg STAT STAT IM 01/24/20 23:45 01/24/20 23:47 DC 01/25/20 00:04 Haloperidol (Haldol) 10 mg STAT STAT IM 01/25/20 02:22 01/25/20 02:24 DC 01/25/20 02:27 Haloperidol (Haldol) 10 mg STAT STAT IM 01/26/20 16:50 01/26/20 16:52 DC 01/26/20 16:58 Haloperidol (Haldol) 10 mg STAT STAT IM 01/27/20 20:17 01/27/20 20:20 DC 01/27/20 20:32 Haloperidol (Haldol) 10 mg STAT STAT PO 01/26/20 16:38 01/26/20 16:52 DC Levothyroxine Sodium (Synthroid) 100 mcg DAILY@06 PO 12/24/19 06:00 01/17/20 06:17 [place] Carbonate (Eskalith Oral Solution) 300 mg BID PO 12/23/19 09:00 12/28/19 09:41 DC 12/28/19 09:35 [place] Carbonate (Eskalith Oral Solution) 450 mg BID PO 12/28/19 21:00 12/31/19 10:58 DC 12/31/19 08:37 [place] Carbonate ([place] Carbonate) 450 mg BID PO 12/31/19 21:00 01/16/20 21:17 Lorazepam (Ativan) 1 mg STAT STAT IM 01/24/20 23:45 01/24/20 23:47 DC 01/25/20 00:04 Lorazepam (Ativan) 2 mg STAT STAT IM 01/23/20 01:38 01/23/20 01:40 DC 01/23/20 01:49 Lorazepam (Ativan) 2 mg STAT STAT IM 01/23/20 21:42 01/23/20 21:44 DC 01/23/20 21:56 Lorazepam (Ativan) 2 mg STAT STAT IM 01/26/20 16:38 01/26/20 16:42 DC 01/26/20 16:59 Lorazepam (Ativan) 2 mg STAT STAT IM 01/27/20 20:17 01/27/20 20:20 DC 01/27/20 20:31 Magnesium Hydroxide (Milk Of Magnesia) 30 ml DAILYPRN PRN PO CONSTIPATION 12/23/19 01:00 Miscellaneous (Unresolved Clarification Entry) SEE LABEL COMMENTS DAILY XX 01/21/20 09:00 01/21/20 08:04 DC Trazodone HCl (Desyrel) 50 mg QHSP PRN PO INSOMNIA 12/23/19 01:00 Allergies Coded Allergies: Sulfa (Sulfonamide Antibiotics) (Verified Allergy, Severe, hives, 04/25/19) amoxicillin (Verified Allergy, Intermediate, rash, 04/25/19) azithromycin (Verified Allergy, Intermediate, rash, 04/25/19) levothyroxine (Verified Allergy, Unknown, 12/22/19) pt states it makes her collapse LYRIC REID DO Jan 28, 2020 09:59
[2020-01-28] MEDS: chlorproMAZINE 25 MG TABLET PO SCH ×3 (10:15→21:00)
[2020-01-28] MEDS: LITHIUM CARBONATE 150 MG CAP PO SCH ×2 (10:16→21:00)
[2020-01-28] MEDS: haloperidoL 5 MG TAB PO SCH ×2 (10:16→21:00)
--- NOTE | 2020-01-28 10:21 | MHIR ---
General Date: Jan 27, 2020 Time Initiated: 20:16 Restraint Documentation Order/Evaluation FACE TO FACE: No PHYSICIAN ASSESSMENT: The patient was agitated, aggressive, has threatening, angry, aggressive behavior REASON FOR RESTRAINT: Patient poses imminent danger of harming self or others: Yes, patient has a h/o vilent and aggressive behavior, she has not been taking her medications, she was agitated and was aggressive (verbally) DE-ESCALATION INTERVENTIONS ATTEMPTED BEFORE USE OF RESTRAINTS: Re direction, support, offered medications PO [MECHANICAL AND/OR CHEMICAL] RESTRAINTS USED: Both-- Haldol 10 mgs IM, Benadryl 50 mgs IM and Ativan 2 mgs IM LENGTH OF TIME ORDERED IN RESTRAINTS: 240 minutes. WHEN TO DISCONTINUE RESTRAINTS: When the patient is no longer a threat to themselves or others. Post evaluation of restraint due in 24 hours. LOBITO AGUERO MD Jan 28, 2020 10:21
[2020-01-28] MEDS ORDERED: chlorproMAZINE INJ 50MG/2ML AMP (J3230) IM ONE (17:00)
[2020-01-28] MEDS ORDERED: diphenhydrAMINE 50MG/ML VIAL (J1200) IM ONE ×3 (17:00→22:15)
[2020-01-28] MEDS ORDERED: LORazepam 2 MG/ML VIAL IM ONE ×2 (18:45→22:15)
[2020-01-28] MEDS ORDERED: HALOPERIDOL 5MG/ML VIAL (J1630 PER 1) IM ONE ×2 (18:45→22:15)
[2020-01-28] MEDS: ACETAMINOPHEN TAB 650MG DOSE (2X325MG) PO PRN (21:33)
[2020-01-29] MEDS ORDERED: diphenhydrAMINE 50MG/ML VIAL (J1200) IM ONE ×2 (01:30→20:15)
[2020-01-29] MEDS ORDERED: HALOPERIDOL 5MG/ML VIAL (J1630 PER 1) IM ONE ×2 (01:30→20:15)
[2020-01-29] MEDS ORDERED: LORazepam 2 MG/ML VIAL IM ONE ×2 (01:30→20:15)
[2020-01-29] MEDS: LEVOTHYROXINE 100MCG TABLET (0.1MG) PO SCH (05:31)
[2020-01-29] MEDS: DOCUSATE SODIUM 100 MG CAP PO SCH (09:00)
[2020-01-29] MEDS: chlorproMAZINE 25 MG TABLET PO SCH ×3 (09:00→21:00)
[2020-01-29] MEDS: LITHIUM CARBONATE 150 MG CAP PO SCH ×2 (09:00→20:40)
[2020-01-29] MEDS: haloperidoL 5 MG TAB PO SCH ×2 (09:00→20:38)
[2020-01-29] MEDS: ACETAMINOPHEN TAB 650MG DOSE (2X325MG) PO PRN ×2 (13:11→23:25)
[2020-01-30] MEDS: LEVOTHYROXINE 100MCG TABLET (0.1MG) PO SCH (05:58)
[2020-01-30] MEDS: haloperidoL 5 MG TAB PO SCH ×2 (09:00→21:00)
[2020-01-30] MEDS: DOCUSATE SODIUM 100 MG CAP PO SCH (09:00)
[2020-01-30] MEDS: chlorproMAZINE 25 MG TABLET PO SCH ×3 (09:00→21:00)
[2020-01-30] MEDS: LITHIUM CARBONATE 150 MG CAP PO SCH ×2 (09:00→21:00)
[2020-01-30] MEDS: ACETAMINOPHEN TAB 650MG DOSE (2X325MG) PO PRN ×2 (09:14→22:57)
[2020-01-30] MEDS ORDERED: diphenhydrAMINE 50MG/ML VIAL (J1200) IM ONE ×3 (17:15→21:45)
[2020-01-30] MEDS ORDERED: HALOPERIDOL 5MG/ML VIAL (J1630 PER 1) IM ONE ×2 (17:15→20:00)
[2020-01-30] MEDS ORDERED: LORazepam 2 MG/ML VIAL IM ONE ×2 (17:15→20:00)
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
[2020-01-30] MEDS ORDERED: chlorproMAZINE INJ 50MG/2ML AMP (J3230) IM ONE ×2 (21:45)
[2020-01-30] MEDS: traZODone 50 MG TAB PO PRN (22:56)
[2020-01-31] MEDS: LEVOTHYROXINE 100MCG TABLET (0.1MG) PO SCH (06:00)
[2020-01-31] MEDS: LITHIUM CARBONATE 150 MG CAP PO SCH ×2 (09:00→21:00)
[2020-01-31] MEDS: chlorproMAZINE 25 MG TABLET PO SCH ×3 (09:00→21:00)
[2020-01-31] MEDS: haloperidoL 5 MG TAB PO SCH ×2 (09:00→21:00)
[2020-01-31] MEDS: DOCUSATE SODIUM 100 MG CAP PO SCH (09:00)
[2020-01-31] MEDS: ACETAMINOPHEN TAB 650MG DOSE (2X325MG) PO PRN (17:53)
[2020-01-31] MEDS ORDERED: HALOPERIDOL 5MG/ML VIAL (J1630 PER 1) IM STA (20:14)
[2020-01-31] MEDS ORDERED: diphenhydrAMINE 50MG/ML VIAL (J1200) IM STA (20:14)
[2020-01-31] MEDS ORDERED: LORazepam 2 MG/ML VIAL IM STA (20:14)
[2020-01-31 20:35] VITALS: BP 158/89
[2020-01-31 20:50] VITALS: BP 164/80
[2020-01-31 21:05] VITALS: BP 169/100
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
[2020-01-31 21:35] VITALS: BP 147/103
[2020-01-31] MEDS ORDERED: chlorproMAZINE INJ 50MG/2ML AMP (J3230) IM STA (21:38)
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
--- NOTE | 2020-01-31 22:33 | MHPR ---
General Date: Jan 29, 2020 Post-Restraint Evaluation THIS IS A LATE ENTRY FOR THE RESTRAINTS APPLIED TO THE PATIENT ON 01/28/2020 THE OUTCOME OF THE RESTRAINT: According to staff from [facility] she was able to calm down after she remained on restraints (physical and chemical) EFFECTIVENESS OF THE RESTRAINT: Mechanical and/or chemical: Positive ANY EVIDENCE THAT THE PATIENT WAS AFFECTED EMOTIONALLY: Not in a negative way, she was able to calm down, her impulsivity and aggressiveness were decreased. ANY NEED FOR COUNSELING/ASSISTANCE: She received support from staff after she came off the restraints because she was sleepy. CHANGES IN TREATMENT PLAN: Soon she will have to go through a Treatment over Objection RECOMMENDATIONS FOR FUTURE INCIDENTS: Medication compliance but unfortunately because she is psychotic she is not insightful. She needs to be TOO'd. LOBITO AGUERO MD Jan 31, 2020 22:33
--- NOTE | 2020-01-31 22:39 | MHIPNPDOC ---
[facility] Progress Note Progress Note DATE OF SERVICE: 01/31/20 This software writer attempted to meet with the patient and because she has refused to do it, Debora Scott, one of the Nurses, brought the tablet to where Latrice was at that moment, in the hallway. At that moment she could not refuse to see me or talk to me as she has been doing. Her hair was wet, her mood was euphoric at that moment, elated. Her speech was extremely fast and pressured, so fast and pressured that I could not understand what she told me. She turned around and left while I was still trying to talk to her. Her insight and judgement are impaired, she is dangerous to others even when at this moment she is not being violent to others but she has a tendency to shift moods very rapidly. Vital Signs Vital Signs Date Time Temp Pulse Resp B/P (MAP) Pulse Ox O2 Delivery O2 Flow Rate FiO2 01/31/20 22:05 18 01/31/20 21:35 103 147/103 100 Room Air 01/31/20 16:40 98.7 Current Medications Current Medications Medications (Trade) Dose Ordered Sig/Ruth Route PRN Reason Start Time Stop Time Status Last Admin Dose Admin Acetaminophen (Tylenol Tab) 650 mg Q6HP PRN PO HEADACHE or DISCOMFORT 12/23/19 01:00 01/31/20 17:53 Al Hydrox/Mg Hydrox/Simethicone (Mylanta) 30 ml Q4HP PRN PO HEARTBURN/INDIGESTION 12/23/19 01:00 Chlorpromazine HCl (Thorazine) 100 mg Q6HP PRN PO AGITATION 12/28/19 14:00 12/28/19 14:00 DC Chlorpromazine HCl (Thorazine) 100 mg STAT STAT IM 12/29/19 13:02 12/29/19 13:04 DC 12/29/19 13:32 Chlorpromazine HCl (Thorazine) 100 mg STAT STAT IM 01/31/20 21:38 01/31/20 21:40 DC 01/31/20 21:42 Chlorpromazine HCl (Thorazine) 150 mg Q6HP PRN PO AGITATION/anxiety 12/28/19 14:00 01/04/20 13:34 DC 01/04/20 09:25 Chlorpromazine HCl (Thorazine) 150 mg STAT STAT IM 01/23/20 19:56 01/23/20 19:58 DC 01/23/20 19:59 Chlorpromazine HCl (Thorazine) 150 mg STAT STAT IM 01/27/20 22:16 01/27/20 22:17 DC 01/27/20 22:54 Chlorpromazine HCl (Thorazine) 150 mg TID PO 01/04/20 16:00 01/28/20 10:15 Clozapine (Clozaril) 12.5 mg QHS PO 01/06/20 21:00 01/12/20 09:29 DC 01/11/20 20:13 Clozapine (Clozaril) 25 mg BID PO 01/14/20 21:00 01/18/20 09:33 DC 01/16/20 21:17 Clozapine (Clozaril) 25 mg QHS PO 01/12/20 21:00 01/14/20 10:58 DC 01/13/20 22:43 Diphenhydramine HCl (Benadryl) 50 mg Q4HP PRN PO ANXIETY/AGITATION 12/23/19 15:00 Diphenhydramine HCl (Benadryl) 50 mg STAT STAT IM 12/22/19 21:28 12/22/19 21:30 DC 12/22/19 22:03 Diphenhydramine HCl (Benadryl) 50 mg STAT STAT IM 01/23/20 01:38 01/23/20 01:40 DC 01/23/20 01:49 Diphenhydramine HCl (Benadryl) 50 mg STAT STAT IM 01/23/20 19:56 01/23/20 19:58 DC 01/23/20 20:00 Diphenhydramine HCl (Benadryl) 50 mg STAT STAT IM 01/26/20 16:38 01/26/20 16:42 DC 01/26/20 16:59 Diphenhydramine HCl (Benadryl) 50 mg STAT STAT IM 01/27/20 20:17 01/27/20 20:20 DC 01/27/20 20:32 Diphenhydramine HCl (Benadryl) 50 mg STAT STAT IM 01/31/20 20:14 01/31/20 20:16 DC 01/31/20 20:21 Docusate Sodium (Colace) 100 mg DAILY PO 01/08/20 09:00 Fluphenazine HCl (Prolixin) 10 mg BID PO 12/23/19 09:00 12/28/19 09:42 DC Haloperidol (Haldol) 5 mg BID PO 01/18/20 09:00 01/28/20 10:16 Haloperidol (Haldol) 10 mg STAT STAT IM 01/23/20 01:38 01/23/20 01:40 DC 01/23/20 01:49 Haloperidol (Haldol) 10 mg STAT STAT IM 01/23/20 21:42 01/23/20 21:44 DC 01/23/20 21:55 Haloperidol (Haldol) 10 mg STAT STAT IM 01/24/20 23:45 01/24/20 23:47 DC 01/25/20 00:04 Haloperidol (Haldol) 10 mg STAT STAT IM 01/25/20 02:22 01/25/20 02:24 DC 01/25/20 02:27 Haloperidol (Haldol) 10 mg STAT STAT IM 01/26/20 16:50 01/26/20 16:52 DC 01/26/20 16:58 Haloperidol (Haldol) 10 mg STAT STAT IM 01/27/20 20:17 01/27/20 20:20 DC 01/27/20 20:32 Haloperidol (Haldol) 10 mg STAT STAT IM 01/31/20 20:14 01/31/20 20:16 DC 01/31/20 20:21 Haloperidol (Haldol) 10 mg STAT STAT PO 01/26/20 16:38 01/26/20 16:52 DC Levothyroxine Sodium (Synthroid) 100 mcg DAILY@06 PO 12/24/19 06:00 01/17/20 06:17 [place] Carbonate (Eskalith Oral Solution) 300 mg BID PO 12/23/19 09:00 12/28/19 09:41 DC 12/28/19 09:35 [place] Carbonate (Eskalith Oral Solution) 450 mg BID PO 12/28/19 21:00 12/31/19 10:58 DC 12/31/19 08:37 [place] Carbonate ([place] Carbonate) 450 mg BID PO 12/31/19 21:00 01/28/20 10:16 Lorazepam (Ativan) 1 mg STAT STAT IM 01/24/20 23:45 01/24/20 23:47 DC 01/25/20 00:04 Lorazepam (Ativan) 2 mg STAT STAT IM 01/23/20 01:38 01/23/20 01:40 DC 01/23/20 01:49 Lorazepam (Ativan) 2 mg STAT STAT IM 01/23/20 21:42 01/23/20 21:44 DC 01/23/20 21:56 Lorazepam (Ativan) 2 mg STAT STAT IM 01/26/20 16:38 01/26/20 16:42 DC 01/26/20 16:59 Lorazepam (Ativan) 2 mg STAT STAT IM 01/27/20 20:17 01/27/20 20:20 DC 01/27/20 20:31 Lorazepam (Ativan) 2 mg STAT STAT IM 01/31/20 20:14 01/31/20 20:16 DC 01/31/20 20:21 Magnesium Hydroxide (Milk Of Magnesia) 30 ml DAILYPRN PRN PO CONSTIPATION 12/23/19 01:00 Miscellaneous (Unresolved Clarification Entry) SEE LABEL COMMENTS DAILY XX 01/21/20 09:00 01/21/20 08:04 DC Miscellaneous (Unresolved Clarification Entry) SEE LABEL COMMENTS DAILY XX 01/30/20 09:00 01/30/20 13:01 DC Trazodone HCl (Desyrel) 50 mg QHSP PRN PO INSOMNIA 12/23/19 01:00 01/30/20 22:56 Allergies Coded Allergies: Sulfa (Sulfonamide Antibiotics) (Verified Allergy, Severe, hives, 04/25/19) amoxicillin (Verified Allergy, Intermediate, rash, 04/25/19) azithromycin (Verified Allergy, Intermediate, rash, 04/25/19) levothyroxine (Verified Allergy, Unknown, 12/22/19) pt states it makes her collapse LOBITO AGUERO MD Jan 31, 2020 22:39
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
[2020-02-01] MEDS: LEVOTHYROXINE 100MCG TABLET (0.1MG) PO SCH (05:29)
[2020-02-01] MEDS: haloperidoL 5 MG TAB PO SCH ×2 (09:00→21:00)
[2020-02-01] MEDS: LITHIUM CARBONATE 150 MG CAP PO SCH ×2 (09:00→21:00)
[2020-02-01] MEDS: DOCUSATE SODIUM 100 MG CAP PO SCH (09:00)
[2020-02-01] MEDS: chlorproMAZINE 25 MG TABLET PO SCH ×3 (09:00→21:00)
[2020-02-01] MEDS: ACETAMINOPHEN TAB 650MG DOSE (2X325MG) PO PRN (16:32)
[2020-02-01] MEDS ORDERED: HALOPERIDOL 5MG/ML VIAL (J1630 PER 1) IM STA (19:35)
[2020-02-01] MEDS ORDERED: LORazepam 2 MG/ML VIAL IM STA (19:35)
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
[2020-02-01] MEDS ORDERED: chlorproMAZINE INJ 50MG/2ML AMP (J3230) IM STA (21:01)
[2020-02-02] MEDS: LEVOTHYROXINE 100MCG TABLET (0.1MG) PO SCH (06:00)
[2020-02-02] MEDS: DOCUSATE SODIUM 100 MG CAP PO SCH (09:00)
[2020-02-02] MEDS: haloperidoL 5 MG TAB PO SCH ×2 (09:00→20:14)
[2020-02-02] MEDS: chlorproMAZINE 25 MG TABLET PO SCH ×3 (09:00→20:14)
[2020-02-02] MEDS: LITHIUM CARBONATE 150 MG CAP PO SCH ×2 (09:00→20:14)
--- NOTE | 2020-02-02 09:23 | MHIPNPDOC ---
[facility] Progress Note Progress Note DATE OF SERVICE: 02/02/20 HPI: The patient refuses to meet with this provider again. She is quite distorted and needs to be coded nearly every evening. Report is still incredibly distorted, pressured, and unable to engage in any coherent interview. Objective Behavior: Patient declines interview today. . Assessment F25.8 Other schizoaffective disorders Plan My assessment is schizoaffective disorder, current episode, manic. Continue to offer reasonable medications, however, patient will only take injections of Thorazine. These are unsafe, well continue to pursue the treatment over objection as well as retention as she is approaching day 42. Referral to [place] after treatment over objection has been attained. Vital Signs Vital Signs Date Time Temp Pulse Resp B/P (MAP) Pulse Ox O2 Delivery O2 Flow Rate FiO2 01/31/20 22:50 18 01/31/20 21:35 103 147/103 100 Room Air 01/31/20 16:40 98.7 Current Medications Current Medications Medications (Trade) Dose Ordered Sig/Ruth Route PRN Reason Start Time Stop Time Status Last Admin Dose Admin Acetaminophen (Tylenol Tab) 650 mg Q6HP PRN PO HEADACHE or DISCOMFORT 12/23/19 01:00 02/01/20 16:32 Al Hydrox/Mg Hydrox/Simethicone (Mylanta) 30 ml Q4HP PRN PO HEARTBURN/INDIGESTION 12/23/19 01:00 Chlorpromazine HCl (Thorazine) 50 mg STAT STAT IM 02/01/20 21:01 02/01/20 21:03 DC 02/01/20 21:07 Chlorpromazine HCl (Thorazine) 100 mg Q6HP PRN PO AGITATION 12/28/19 14:00 12/28/19 14:00 DC Chlorpromazine HCl (Thorazine) 100 mg STAT STAT IM 12/29/19 13:02 12/29/19 13:04 DC 12/29/19 13:32 Chlorpromazine HCl (Thorazine) 100 mg STAT STAT IM 01/31/20 21:38 01/31/20 21:40 DC 01/31/20 21:42 Chlorpromazine HCl (Thorazine) 150 mg Q6HP PRN PO AGITATION/anxiety 12/28/19 14:00 01/04/20 13:34 DC 01/04/20 09:25 Chlorpromazine HCl (Thorazine) 150 mg STAT STAT IM 01/23/20 19:56 01/23/20 19:58 DC 01/23/20 19:59 Chlorpromazine HCl (Thorazine) 150 mg STAT STAT IM 01/27/20 22:16 01/27/20 22:17 DC 01/27/20 22:54 Chlorpromazine HCl (Thorazine) 150 mg TID PO 01/04/20 16:00 01/28/20 10:15 Clozapine (Clozaril) 12.5 mg QHS PO 01/06/20 21:00 01/12/20 09:29 DC 01/11/20 20:13 Clozapine (Clozaril) 25 mg BID PO 01/14/20 21:00 01/18/20 09:33 DC 01/16/20 21:17 Clozapine (Clozaril) 25 mg QHS PO 01/12/20 21:00 01/14/20 10:58 DC 01/13/20 22:43 Diphenhydramine HCl (Benadryl) 50 mg Q4HP PRN PO ANXIETY/AGITATION 12/23/19 15:00 Diphenhydramine HCl (Benadryl) 50 mg STAT STAT IM 12/22/19 21:28 12/22/19 21:30 DC 12/22/19 22:03 Diphenhydramine HCl (Benadryl) 50 mg STAT STAT IM 01/23/20 01:38 01/23/20 01:40 DC 01/23/20 01:49 Diphenhydramine HCl (Benadryl) 50 mg STAT STAT IM 01/23/20 19:56 01/23/20 19:58 DC 01/23/20 20:00 Diphenhydramine HCl (Benadryl) 50 mg STAT STAT IM 01/26/20 16:38 01/26/20 16:42 DC 01/26/20 16:59 Diphenhydramine HCl (Benadryl) 50 mg STAT STAT IM 01/27/20 20:17 01/27/20 20:20 DC 01/27/20 20:32 Diphenhydramine HCl (Benadryl) 50 mg STAT STAT IM 01/31/20 20:14 01/31/20 20:16 DC 01/31/20 20:21 Docusate Sodium (Colace) 100 mg DAILY PO 01/08/20 09:00 Fluphenazine HCl (Prolixin) 10 mg BID PO 12/23/19 09:00 12/28/19 09:42 DC Haloperidol (Haldol) 5 mg BID PO 01/18/20 09:00 01/28/20 10:16 Haloperidol (Haldol) 10 mg STAT STAT IM 01/23/20 01:38 01/23/20 01:40 DC 01/23/20 01:49 Haloperidol (Haldol) 10 mg STAT STAT IM 01/23/20 21:42 01/23/20 21:44 DC 01/23/20 21:55 Haloperidol (Haldol) 10 mg STAT STAT IM 01/24/20 23:45 01/24/20 23:47 DC 01/25/20 00:04 Haloperidol (Haldol) 10 mg STAT STAT IM 01/25/20 02:22 01/25/20 02:24 DC 01/25/20 02:27 Haloperidol (Haldol) 10 mg STAT STAT IM 01/26/20 16:50 01/26/20 16:52 DC 01/26/20 16:58 Haloperidol (Haldol) 10 mg STAT STAT IM 01/27/20 20:17 01/27/20 20:20 DC 01/27/20 20:32 Haloperidol (Haldol) 10 mg STAT STAT IM 01/31/20 20:14 01/31/20 20:16 DC 01/31/20 20:21 Haloperidol (Haldol) 10 mg STAT STAT IM 02/01/20 19:35 02/01/20 19:37 DC 02/01/20 19:41 Haloperidol (Haldol) 10 mg STAT STAT PO 01/26/20 16:38 01/26/20 16:52 DC Levothyroxine Sodium (Synthroid) 100 mcg DAILY@06 PO 12/24/19 06:00 01/17/20 06:17 [place] Carbonate (Eskalith Oral Solution) 300 mg BID PO 12/23/19 09:00 12/28/19 09:41 DC 12/28/19 09:35 [place] Carbonate (Eskalith Oral Solution) 450 mg BID PO 12/28/19 21:00 12/31/19 10:58 DC 12/31/19 08:37 [place] Carbonate ([place] Carbonate) 450 mg BID PO 12/31/19 21:00 01/28/20 10:16 Lorazepam (Ativan) 1 mg STAT STAT IM 01/24/20 23:45 01/24/20 23:47 DC 01/25/20 00:04 Lorazepam (Ativan) 2 mg STAT STAT IM 01/23/20 01:38 01/23/20 01:40 DC 01/23/20 01:49 Lorazepam (Ativan) 2 mg STAT STAT IM 01/23/20 21:42 01/23/20 21:44 DC 01/23/20 21:56 Lorazepam (Ativan) 2 mg STAT STAT IM 01/26/20 16:38 01/26/20 16:42 DC 01/26/20 16:59 Lorazepam (Ativan) 2 mg STAT STAT IM 01/27/20 20:17 01/27/20 20:20 DC 01/27/20 20:31 Lorazepam (Ativan) 2 mg STAT STAT IM 01/31/20 20:14 01/31/20 20:16 DC 01/31/20 20:21 Lorazepam (Ativan) 2 mg STAT STAT IM 02/01/20 19:35 02/01/20 19:37 DC 02/01/20 19:41 Magnesium Hydroxide (Milk Of Magnesia) 30 ml DAILYPRN PRN PO CONSTIPATION 12/23/19 01:00 Miscellaneous (Unresolved Clarification Entry) SEE LABEL COMMENTS DAILY XX 01/21/20 09:00 01/21/20 08:04 DC Miscellaneous (Unresolved Clarification Entry) SEE LABEL COMMENTS DAILY XX 01/30/20 09:00 01/30/20 13:01 DC Trazodone HCl (Desyrel) 50 mg QHSP PRN PO INSOMNIA 12/23/19 01:00 01/30/20 22:56 Allergies Coded Allergies: Sulfa (Sulfonamide Antibiotics) (Verified Allergy, Severe, hives, 04/25/19) amoxicillin (Verified Allergy, Intermediate, rash, 04/25/19) azithromycin (Verified Allergy, Intermediate, rash, 04/25/19) levothyroxine (Verified Allergy, Unknown, 12/22/19) pt states it makes her collapse LYRIC REID DO Feb 02, 2020 09:23
[2020-02-02] MEDS ORDERED: LORazepam 2 MG/ML VIAL IM STA ×2 (13:33→16:52)
[2020-02-02] MEDS ORDERED: diphenhydrAMINE 50MG/ML VIAL (J1200) IM STA ×2 (13:33→16:52)
[2020-02-02] MEDS ORDERED: HALOPERIDOL 5MG/ML VIAL (J1630 PER 1) IM STA ×2 (13:33→16:52)
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
[2020-02-02 15:30] VITALS: BP 137/90
[2020-02-02 16:00] VITALS: BP 134/92
--- NOTE | 2020-02-02 16:59 | IPN ---
DATE: 02/02/2020 I was asked to see the patient emergently after she has been placed on a four-point restraint. The patient refused examination at first and then said I could listen to her heart if I wanted to. The patient had no medical issues and is being monitored after 15 minutes in the inpatient mental health unit by nursing. She remains uncooperative and would not allow vital signs to be checked by nursing. GENERAL: She is awake, alert, oriented, is able to state her name. She has no respiratory distress. Able to speak if full sentences without any difficulty. Currently in a four-point restraint. Lungs are clear to auscultation. No wheezing, rales, or rhonchi. HEART: S1, S2, sinus rhythm. ABDOMEN: Soft, nontender, nondistended. Positive bowel sounds. EXTREMITIES: No clubbing, cyanosis, or any pitting edema. The patient permitted the rest of the examination. She remains aggressive and agitated. She refuses further evaluation by nursing. REASON FOR RESTRAINT: The patient remains violent and aggressive. De-escalation interventions were attempted prior to use of the restraints including support, redirection, oral medications. Mechanical restraints used. The patient was placed in four-point restraint. Length of time ordered in restraints is 240 minutes. When to discontinue restraints, when the patient is no longer a threat to herself and others. MEREDITH
[2020-02-02 17:15] VITALS: BP 143/99
[2020-02-03] MEDS: LEVOTHYROXINE 100MCG TABLET (0.1MG) PO SCH (05:17)
--- NOTE | 2020-02-03 09:48 | MHIPNPDOC ---
[facility] Progress Note Progress Note DATE OF SERVICE: 02/03/20 Patient attempted to meet today. However, patient declined again today to meet. She has been extraordinarily agitated and continuously refuses medications, nee ding injections quite regularly now. She has become increasingly manic and distorted and was able to see her pass in front of the door for a short time. Objective Appearance: patient declined interview. poor hygiene as she has not showered. Behavior: distorted and walks bizarrely. Judgement: poor. Insight: poor. Assessment F25.9 Schizoaffective disorder, unspecified Plan It is unclear whether she will be able to be regulated long enough to engage in a court hearing. Currently working out the details of court hearing with shoe lay out planner in terms of the format as has not been done through the coronavirus crisis prior via virtual. Continue offering her medications, presuming treatment over objection as well as retention. She will likely need a complex setup of medications in order to achieve any measurable ability to memory stable. Referral to [facility] for long-term care as she will take quite some time to resolve. Vital Signs Vital Signs Date Time Temp Pulse Resp B/P (MAP) Pulse Ox O2 Delivery O2 Flow Rate FiO2 02/02/20 17:15 98.4 122 18 143/99 98 Room Air Current Medications Current Medications Medications (Trade) Dose Ordered Sig/Ruth Route PRN Reason Start Time Stop Time Status Last Admin Dose Admin Acetaminophen (Tylenol Tab) 650 mg Q6HP PRN PO HEADACHE or DISCOMFORT 12/23/19 01:00 02/01/20 16:32 Al Hydrox/Mg Hydrox/Simethicone (Mylanta) 30 ml Q4HP PRN PO HEARTBURN/INDIGESTION 12/23/19 01:00 Chlorpromazine HCl (Thorazine) 50 mg STAT STAT IM 02/01/20 21:01 02/01/20 21:03 DC 02/01/20 21:07 Chlorpromazine HCl (Thorazine) 100 mg Q6HP PRN PO AGITATION 12/28/19 14:00 12/28/19 14:00 DC Chlorpromazine HCl (Thorazine) 100 mg STAT STAT IM 12/29/19 13:02 12/29/19 13:04 DC 12/29/19 13:32 Chlorpromazine HCl (Thorazine) 100 mg STAT STAT IM 01/31/20 21:38 01/31/20 21:40 DC 01/31/20 21:42 Chlorpromazine HCl (Thorazine) 150 mg Q6HP PRN PO AGITATION/anxiety 12/28/19 14:00 01/04/20 13:34 DC 01/04/20 09:25 Chlorpromazine HCl (Thorazine) 150 mg STAT STAT IM 01/23/20 19:56 01/23/20 19:58 DC 01/23/20 19:59 Chlorpromazine HCl (Thorazine) 150 mg STAT STAT IM 01/27/20 22:16 01/27/20 22:17 DC 01/27/20 22:54 Chlorpromazine HCl (Thorazine) 150 mg TID PO 01/04/20 16:00 01/28/20 10:15 Clozapine (Clozaril) 12.5 mg QHS PO 01/06/20 21:00 01/12/20 09:29 DC 01/11/20 20:13 Clozapine (Clozaril) 25 mg BID PO 01/14/20 21:00 01/18/20 09:33 DC 01/16/20 21:17 Clozapine (Clozaril) 25 mg QHS PO 01/12/20 21:00 01/14/20 10:58 DC 01/13/20 22:43 Diphenhydramine HCl (Benadryl) 50 mg Q4HP PRN PO ANXIETY/AGITATION 12/23/19 15:00 Diphenhydramine HCl (Benadryl) 50 mg STAT STAT IM 12/22/19 21:28 12/22/19 21:30 DC 12/22/19 22:03 Diphenhydramine HCl (Benadryl) 50 mg STAT STAT IM 01/23/20 01:38 01/23/20 01:40 DC 01/23/20 01:49 Diphenhydramine HCl (Benadryl) 50 mg STAT STAT IM 01/23/20 19:56 01/23/20 19:58 DC 01/23/20 20:00 Diphenhydramine HCl (Benadryl) 50 mg STAT STAT IM 01/26/20 16:38 01/26/20 16:42 DC 01/26/20 16:59 Diphenhydramine HCl (Benadryl) 50 mg STAT STAT IM 01/27/20 20:17 01/27/20 20:20 DC 01/27/20 20:32 Diphenhydramine HCl (Benadryl) 50 mg STAT STAT IM 01/31/20 20:14 01/31/20 20:16 DC 01/31/20 20:21 Diphenhydramine HCl (Benadryl) 50 mg STAT STAT IM 02/02/20 13:33 02/02/20 13:37 DC 02/02/20 13:45 Diphenhydramine HCl (Benadryl) 50 mg STAT STAT IM 02/02/20 16:52 02/02/20 16:55 DC 02/02/20 17:09 Docusate Sodium (Colace) 100 mg DAILY PO 01/08/20 09:00 Fluphenazine HCl (Prolixin) 10 mg BID PO 12/23/19 09:00 12/28/19 09:42 DC Haloperidol (Haldol) 5 mg BID PO 01/18/20 09:00 01/28/20 10:16 Haloperidol (Haldol) 10 mg STAT STAT IM 01/23/20 01:38 01/23/20 01:40 DC 01/23/20 01:49 Haloperidol (Haldol) 10 mg STAT STAT IM 01/23/20 21:42 01/23/20 21:44 DC 01/23/20 21:55 Haloperidol (Haldol) 10 mg STAT STAT IM 01/24/20 23:45 01/24/20 23:47 DC 01/25/20 00:04 Haloperidol (Haldol) 10 mg STAT STAT IM 01/25/20 02:22 01/25/20 02:24 DC 01/25/20 02:27 Haloperidol (Haldol) 10 mg STAT STAT IM 01/26/20 16:50 01/26/20 16:52 DC 01/26/20 16:58 Haloperidol (Haldol) 10 mg STAT STAT IM 01/27/20 20:17 01/27/20 20:20 DC 01/27/20 20:32 Haloperidol (Haldol) 10 mg STAT STAT IM 01/31/20 20:14 01/31/20 20:16 DC 01/31/20 20:21 Haloperidol (Haldol) 10 mg STAT STAT IM 02/01/20 19:35 02/01/20 19:37 DC 02/01/20 19:41 Haloperidol (Haldol) 10 mg STAT STAT IM 02/02/20 13:33 02/02/20 13:37 DC 02/02/20 13:46 Haloperidol (Haldol) 10 mg STAT STAT IM 02/02/20 16:52 02/02/20 16:55 DC 02/02/20 17:09 Haloperidol (Haldol) 10 mg STAT STAT PO 01/26/20 16:38 01/26/20 16:52 DC Levothyroxine Sodium (Synthroid) 100 mcg DAILY@06 PO 12/24/19 06:00 01/17/20 06:17 [place] Carbonate (Eskalith Oral Solution) 300 mg BID PO 12/23/19 09:00 12/28/19 09:41 DC 12/28/19 09:35 [place] Carbonate (Eskalith Oral Solution) 450 mg BID PO 12/28/19 21:00 12/31/19 10:58 DC 12/31/19 08:37 [place] Carbonate ([place] Carbonate) 450 mg BID PO 12/31/19 21:00 01/28/20 10:16 Lorazepam (Ativan) 1 mg STAT STAT IM 01/24/20 23:45 01/24/20 23:47 DC 01/25/20 00:04 Lorazepam (Ativan) 2 mg STAT STAT IM 01/23/20 01:38 01/23/20 01:40 DC 01/23/20 01:49 Lorazepam (Ativan) 2 mg STAT STAT IM 01/23/20 21:42 01/23/20 21:44 DC 01/23/20 21:56 Lorazepam (Ativan) 2 mg STAT STAT IM 01/26/20 16:38 01/26/20 16:42 DC 01/26/20 16:59 Lorazepam (Ativan) 2 mg STAT STAT IM 01/27/20 20:17 01/27/20 20:20 DC 01/27/20 20:31 Lorazepam (Ativan) 2 mg STAT STAT IM 01/31/20 20:14 01/31/20 20:16 DC 01/31/20 20:21 Lorazepam (Ativan) 2 mg STAT STAT IM 02/01/20 19:35 02/01/20 19:37 DC 02/01/20 19:41 Lorazepam (Ativan) 2 mg STAT STAT IM 02/02/20 13:33 02/02/20 13:37 DC 02/02/20 13:46 Lorazepam (Ativan) 2 mg STAT STAT IM 02/02/20 16:52 02/02/20 16:55 DC 02/02/20 17:09 Magnesium Hydroxide (Milk Of Magnesia) 30 ml DAILYPRN PRN PO CONSTIPATION 12/23/19 01:00 Miscellaneous (Unresolved Clarification Entry) SEE LABEL COMMENTS DAILY XX 01/21/20 09:00 01/21/20 08:04 DC Miscellaneous (Unresolved Clarification Entry) SEE LABEL COMMENTS DAILY XX 01/30/20 09:00 01/30/20 13:01 DC Miscellaneous (Unresolved Clarification Entry) SEE LABEL COMMENTS DAILY XX 02/02/20 09:00 Trazodone HCl (Desyrel) 50 mg QHSP PRN PO INSOMNIA 12/23/19 01:00 01/30/20 22:56 Allergies Coded Allergies: Sulfa (Sulfonamide Antibiotics) (Verified Allergy, Severe, hives, 04/25/19) amoxicillin (Verified Allergy, Intermediate, rash, 04/25/19) azithromycin (Verified Allergy, Intermediate, rash, 04/25/19) levothyroxine (Verified Allergy, Unknown, 12/22/19) pt states it makes her collapse LRYIC REID DO Feb 03, 2020 09:48
[2020-02-03] MEDS: LITHIUM CARBONATE 150 MG CAP PO SCH ×2 (10:22→21:00)
[2020-02-03] MEDS: haloperidoL 5 MG TAB PO SCH ×2 (10:23→21:00)
[2020-02-03] MEDS: DOCUSATE SODIUM 100 MG CAP PO SCH (10:23)
[2020-02-03] MEDS: chlorproMAZINE 25 MG TABLET PO SCH ×3 (10:23→21:00)
[2020-02-03] MEDS: ACETAMINOPHEN TAB 650MG DOSE (2X325MG) PO PRN (14:04)
[2020-02-03] MEDS ORDERED: HALOPERIDOL 5MG/ML VIAL (J1630 PER 1) IM ONE (19:45)
[2020-02-03] MEDS ORDERED: diphenhydrAMINE 50MG/ML VIAL (J1200) IM ONE (19:45)
[2020-02-03] MEDS ORDERED: LORazepam 2 MG/ML VIAL IM ONE (19:45)
[2020-02-03] MEDS: traZODone 50 MG TAB PO PRN (23:03)
[2020-02-04] MEDS: LEVOTHYROXINE 100MCG TABLET (0.1MG) PO SCH (06:00)
[2020-02-04] MEDS: DOCUSATE SODIUM 100 MG CAP PO SCH (09:00)
[2020-02-04] MEDS: haloperidoL 5 MG TAB PO SCH ×2 (09:00→21:00)
[2020-02-04] MEDS: chlorproMAZINE 25 MG TABLET PO SCH ×3 (09:00→21:00)
[2020-02-04] MEDS: LITHIUM CARBONATE 150 MG CAP PO SCH ×2 (09:00→21:00)
--- NOTE | 2020-02-04 09:23 | MHIPNPDOC ---
[facility] Progress Note Progress Note DATE OF SERVICE: 02/04/20 HPI: Latrice refuses to meet with provider again as she has done before. Nursing staff reports she is still bizarre and needing sedation at times. Getting coded fairly regularly due to agitation. Objective Objective exam was unable to complete due to Latrice declining to meet. Assessment F31.10 Bipolar disorder, current episode manic without psychotic features, unspecified Plan Continue to try to offer Haldol, which has been previously effective. She is currently in the process of going to court for treatment over objection. Vital Signs Vital Signs Date Time Temp Pulse Resp B/P (MAP) Pulse Ox O2 Delivery O2 Flow Rate FiO2 02/02/20 17:15 98.4 122 18 143/99 98 Room Air Current Medications Current Medications Medications (Trade) Dose Ordered Sig/Ruth Route PRN Reason Start Time Stop Time Status Last Admin Dose Admin Acetaminophen (Tylenol Tab) 650 mg Q6HP PRN PO HEADACHE or DISCOMFORT 12/23/19 01:00 02/03/20 14:04 Al Hydrox/Mg Hydrox/Simethicone (Mylanta) 30 ml Q4HP PRN PO HEARTBURN/INDIGESTION 12/23/19 01:00 Chlorpromazine HCl (Thorazine) 50 mg STAT STAT IM 02/01/20 21:01 02/01/20 21:03 DC 02/01/20 21:07 Chlorpromazine HCl (Thorazine) 100 mg Q6HP PRN PO AGITATION 12/28/19 14:00 12/28/19 14:00 DC Chlorpromazine HCl (Thorazine) 100 mg STAT STAT IM 12/29/19 13:02 12/29/19 13:04 DC 12/29/19 13:32 Chlorpromazine HCl (Thorazine) 100 mg STAT STAT IM 01/31/20 21:38 01/31/20 21:40 DC 01/31/20 21:42 Chlorpromazine HCl (Thorazine) 150 mg Q6HP PRN PO AGITATION/anxiety 12/28/19 14:00 01/04/20 13:34 DC 01/04/20 09:25 Chlorpromazine HCl (Thorazine) 150 mg STAT STAT IM 01/23/20 19:56 01/23/20 19:58 DC 01/23/20 19:59 Chlorpromazine HCl (Thorazine) 150 mg STAT STAT IM 01/27/20 22:16 01/27/20 22:17 DC 01/27/20 22:54 Chlorpromazine HCl (Thorazine) 150 mg TID PO 01/04/20 16:00 02/03/20 21:00 Clozapine (Clozaril) 12.5 mg QHS PO 01/06/20 21:00 01/12/20 09:29 DC 01/11/20 20:13 Clozapine (Clozaril) 25 mg BID PO 01/14/20 21:00 01/18/20 09:33 DC 01/16/20 21:17 Clozapine (Clozaril) 25 mg QHS PO 01/12/20 21:00 01/14/20 10:58 DC 01/13/20 22:43 Diphenhydramine HCl (Benadryl) 50 mg Q4HP PRN PO ANXIETY/AGITATION 12/23/19 15:00 Diphenhydramine HCl (Benadryl) 50 mg STAT STAT IM 12/22/19 21:28 12/22/19 21:30 DC 12/22/19 22:03 Diphenhydramine HCl (Benadryl) 50 mg STAT STAT IM 01/23/20 01:38 01/23/20 01:40 DC 01/23/20 01:49 Diphenhydramine HCl (Benadryl) 50 mg STAT STAT IM 01/23/20 19:56 01/23/20 19:58 DC 01/23/20 20:00 Diphenhydramine HCl (Benadryl) 50 mg STAT STAT IM 01/26/20 16:38 01/26/20 16:42 DC 01/26/20 16:59 Diphenhydramine HCl (Benadryl) 50 mg STAT STAT IM 01/27/20 20:17 01/27/20 20:20 DC 01/27/20 20:32 Diphenhydramine HCl (Benadryl) 50 mg STAT STAT IM 01/31/20 20:14 01/31/20 20:16 DC 01/31/20 20:21 Diphenhydramine HCl (Benadryl) 50 mg STAT STAT IM 02/02/20 13:33 02/02/20 13:37 DC 02/02/20 13:45 Diphenhydramine HCl (Benadryl) 50 mg STAT STAT IM 02/02/20 16:52 02/02/20 16:55 DC 02/02/20 17:09 Docusate Sodium (Colace) 100 mg DAILY PO 01/08/20 09:00 02/03/20 10:23 Fluphenazine HCl (Prolixin) 10 mg BID PO 12/23/19 09:00 12/28/19 09:42 DC Haloperidol (Haldol) 5 mg BID PO 01/18/20 09:00 02/03/20 21:00 Haloperidol (Haldol) 10 mg STAT STAT IM 01/23/20 01:38 01/23/20 01:40 DC 01/23/20 01:49 Haloperidol (Haldol) 10 mg STAT STAT IM 01/23/20 21:42 01/23/20 21:44 DC 01/23/20 21:55 Haloperidol (Haldol) 10 mg STAT STAT IM 01/24/20 23:45 01/24/20 23:47 DC 01/25/20 00:04 Haloperidol (Haldol) 10 mg STAT STAT IM 01/25/20 02:22 01/25/20 02:24 DC 01/25/20 02:27 Haloperidol (Haldol) 10 mg STAT STAT IM 01/26/20 16:50 01/26/20 16:52 DC 01/26/20 16:58 Haloperidol (Haldol) 10 mg STAT STAT IM 01/27/20 20:17 01/27/20 20:20 DC 01/27/20 20:32 Haloperidol (Haldol) 10 mg STAT STAT IM 01/31/20 20:14 01/31/20 20:16 DC 01/31/20 20:21 Haloperidol (Haldol) 10 mg STAT STAT IM 02/01/20 19:35 02/01/20 19:37 DC 02/01/20 19:41 Haloperidol (Haldol) 10 mg STAT STAT IM 02/02/20 13:33 02/02/20 13:37 DC 02/02/20 13:46 Haloperidol (Haldol) 10 mg STAT STAT IM 02/02/20 16:52 02/02/20 16:55 DC 02/02/20 17:09 Haloperidol (Haldol) 10 mg STAT STAT PO 01/26/20 16:38 01/26/20 16:52 DC Levothyroxine Sodium (Synthroid) 100 mcg DAILY@06 PO 12/24/19 06:00 01/17/20 06:17 [place] Carbonate (Eskalith Oral Solution) 300 mg BID PO 12/23/19 09:00 12/28/19 09:41 DC 12/28/19 09:35 [place] Carbonate (Eskalith Oral Solution) 450 mg BID PO 12/28/19 21:00 12/31/19 10:58 DC 12/31/19 08:37 [place] Carbonate ([place] Carbonate) 450 mg BID PO 12/31/19 21:00 02/03/20 10:22 Lorazepam (Ativan) 1 mg STAT STAT IM 01/24/20 23:45 01/24/20 23:47 DC 01/25/20 00:04 Lorazepam (Ativan) 2 mg STAT STAT IM 01/23/20 01:38 01/23/20 01:40 DC 01/23/20 01:49 Lorazepam (Ativan) 2 mg STAT STAT IM 01/23/20 21:42 01/23/20 21:44 DC 01/23/20 21:56 Lorazepam (Ativan) 2 mg STAT STAT IM 01/26/20 16:38 01/26/20 16:42 DC 01/26/20 16:59 Lorazepam (Ativan) 2 mg STAT STAT IM 01/27/20 20:17 01/27/20 20:20 DC 01/27/20 20:31 Lorazepam (Ativan) 2 mg STAT STAT IM 01/31/20 20:14 01/31/20 20:16 DC 01/31/20 20:21 Lorazepam (Ativan) 2 mg STAT STAT IM 02/01/20 19:35 02/01/20 19:37 DC 02/01/20 19:41 Lorazepam (Ativan) 2 mg STAT STAT IM 02/02/20 13:33 02/02/20 13:37 DC 02/02/20 13:46 Lorazepam (Ativan) 2 mg STAT STAT IM 02/02/20 16:52 02/02/20 16:55 DC 02/02/20 17:09 Magnesium Hydroxide (Milk Of Magnesia) 30 ml DAILYPRN PRN PO CONSTIPATION 12/23/19 01:00 Miscellaneous (Unresolved Clarification Entry) SEE LABEL COMMENTS DAILY XX 01/21/20 09:00 01/21/20 08:04 DC Miscellaneous (Unresolved Clarification Entry) SEE LABEL COMMENTS DAILY XX 01/30/20 09:00 01/30/20 13:01 DC Miscellaneous (Unresolved Clarification Entry) SEE LABEL COMMENTS DAILY XX 02/02/20 09:00 Trazodone HCl (Desyrel) 50 mg QHSP PRN PO INSOMNIA 12/23/19 01:00 02/03/20 23:03 Allergies Coded Allergies: Sulfa (Sulfonamide Antibiotics) (Verified Allergy, Severe, hives, 04/25/19) amoxicillin (Verified Allergy, Intermediate, rash, 04/25/19) azithromycin (Verified Allergy, Intermediate, rash, 04/25/19) levothyroxine (Verified Allergy, Unknown, 12/22/19) pt states it makes her collapse LYRIC REID DO Feb 04, 2020 09:23
[2020-02-04] MEDS ORDERED: LORazepam 2 MG/ML VIAL IM ONE (20:00)
[2020-02-04] MEDS ORDERED: HALOPERIDOL 5MG/ML VIAL (J1630 PER 1) IM ONE (20:00)
[2020-02-05] MEDS: LEVOTHYROXINE 100MCG TABLET (0.1MG) PO SCH (06:00)
[2020-02-05] MEDS: LITHIUM CARBONATE 150 MG CAP PO SCH ×2 (09:00→23:04)
[2020-02-05] MEDS: DOCUSATE SODIUM 100 MG CAP PO SCH (09:00)
[2020-02-05] MEDS: chlorproMAZINE 25 MG TABLET PO SCH ×3 (09:00→23:04)
[2020-02-05] MEDS: haloperidoL 5 MG TAB PO SCH ×2 (09:00→23:04)
[2020-02-05] MEDS ORDERED: HALOPERIDOL 5MG/ML VIAL (J1630 PER 1) IM STA (14:41)
[2020-02-05] MEDS ORDERED: LORazepam 2 MG/ML VIAL IM STA (16:29)
[2020-02-05] MEDS ORDERED: chlorproMAZINE INJ 50MG/2ML AMP (J3230) IM STA (16:29)
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
[2020-02-06] MEDS: LEVOTHYROXINE 100MCG TABLET (0.1MG) PO SCH (06:00)
[2020-02-06] MEDS: LITHIUM CARBONATE 150 MG CAP PO SCH ×2 (09:00→22:05)
[2020-02-06] MEDS: chlorproMAZINE 25 MG TABLET PO SCH ×3 (09:00→22:05)
[2020-02-06] MEDS: haloperidoL 5 MG TAB PO SCH ×2 (09:00→22:05)
[2020-02-06] MEDS: DOCUSATE SODIUM 100 MG CAP PO SCH (09:00)
[2020-02-06] MEDS ORDERED: LORazepam 2 MG/ML VIAL IM STA (14:47)
[2020-02-06] MEDS ORDERED: chlorproMAZINE INJ 50MG/2ML AMP (J3230) IM STA (14:47)
[2020-02-06] MEDS: traZODone 50 MG TAB PO PRN (22:01)
[2020-02-07] MEDS: LEVOTHYROXINE 100MCG TABLET (0.1MG) PO SCH (05:38)
--- NOTE | 2020-02-07 08:16 | MHIPN ---
DATE: 02/06/2020 She declined to see me today. She is still on one-to-one observation. She has at times been agitated, has refused medications to help with that. We will continue with current monitoring, and observations. Further recommendations will be made depending on the clinical picture.
[2020-02-07] MEDS: LITHIUM CARBONATE 150 MG CAP PO SCH ×2 (08:49→21:00)
[2020-02-07] MEDS: haloperidoL 5 MG TAB PO SCH ×2 (08:49→21:00)
[2020-02-07] MEDS: chlorproMAZINE 25 MG TABLET PO SCH ×3 (08:50→21:00)
--- NOTE | 2020-02-07 21:07 | MHIPNPDOC ---
[facility] Progress Note Progress Note DATE OF SERVICE: 02/07/20 Latrice the again today as per her frequent uncooperativeness refused to meet for a session She continues to refuse psychotropic medication despite the fact that she exhibits persistent and clear-cut psychotic phenomena At this point she has been evaluated sufficiently as to warrant a recommendation for long-term psychiatric care in a residential setting I will attempt to meet with her again tomorrow No change in treatment plan Vital Signs Vital Signs Date Time Temp Pulse Resp B/P (MAP) Pulse Ox O2 Delivery O2 Flow Rate FiO2 02/07/20 06:12 95.9 18 02/06/20 16:20 94 02/02/20 17:15 143/99 98 Room Air Current Medications Current Medications Medications (Trade) Dose Ordered Sig/Ruth Route PRN Reason Start Time Stop Time Status Last Admin Dose Admin Acetaminophen (Tylenol Tab) 650 mg Q6HP PRN PO HEADACHE or DISCOMFORT 12/23/19 01:00 02/03/20 14:04 Al Hydrox/Mg Hydrox/Simethicone (Mylanta) 30 ml Q4HP PRN PO HEARTBURN/INDIGESTION 12/23/19 01:00 Chlorpromazine HCl (Thorazine) 50 mg STAT STAT IM 02/01/20 21:01 02/01/20 21:03 DC 02/01/20 21:07 Chlorpromazine HCl (Thorazine) 50 mg STAT STAT IM 02/05/20 16:29 02/05/20 16:34 DC 02/05/20 16:38 Chlorpromazine HCl (Thorazine) 50 mg STAT STAT IM 02/06/20 14:47 02/06/20 14:49 DC 02/06/20 14:54 Chlorpromazine HCl (Thorazine) 100 mg Q6HP PRN PO AGITATION 12/28/19 14:00 12/28/19 14:00 DC Chlorpromazine HCl (Thorazine) 100 mg STAT STAT IM 12/29/19 13:02 12/29/19 13:04 DC 12/29/19 13:32 Chlorpromazine HCl (Thorazine) 100 mg STAT STAT IM 01/31/20 21:38 01/31/20 21:40 DC 01/31/20 21:42 Chlorpromazine HCl (Thorazine) 150 mg Q6HP PRN PO AGITATION/anxiety 12/28/19 14:00 01/04/20 13:34 DC 01/04/20 09:25 Chlorpromazine HCl (Thorazine) 150 mg STAT STAT IM 01/23/20 19:56 01/23/20 19:58 DC 01/23/20 19:59 Chlorpromazine HCl (Thorazine) 150 mg STAT STAT IM 01/27/20 22:16 01/27/20 22:17 DC 01/27/20 22:54 Chlorpromazine HCl (Thorazine) 150 mg TID PO 01/04/20 16:00 02/04/20 15:35 Clozapine (Clozaril) 12.5 mg QHS PO 01/06/20 21:00 01/12/20 09:29 DC 01/11/20 20:13 Clozapine (Clozaril) 25 mg BID PO 01/14/20 21:00 01/18/20 09:33 DC 01/16/20 21:17 Clozapine (Clozaril) 25 mg QHS PO 01/12/20 21:00 01/14/20 10:58 DC 01/13/20 22:43 Diphenhydramine HCl (Benadryl) 50 mg Q4HP PRN PO ANXIETY/AGITATION 12/23/19 15:00 Diphenhydramine HCl (Benadryl) 50 mg STAT STAT IM 12/22/19 21:28 12/22/19 21:30 DC 12/22/19 22:03 Diphenhydramine HCl (Benadryl) 50 mg STAT STAT IM 01/23/20 01:38 01/23/20 01:40 DC 01/23/20 01:49 Diphenhydramine HCl (Benadryl) 50 mg STAT STAT IM 01/23/20 19:56 01/23/20 19:58 DC 01/23/20 20:00 Diphenhydramine HCl (Benadryl) 50 mg STAT STAT IM 01/26/20 16:38 01/26/20 16:42 DC 01/26/20 16:59 Diphenhydramine HCl (Benadryl) 50 mg STAT STAT IM 01/27/20 20:17 01/27/20 20:20 DC 01/27/20 20:32 Diphenhydramine HCl (Benadryl) 50 mg STAT STAT IM 01/31/20 20:14 01/31/20 20:16 DC 01/31/20 20:21 Diphenhydramine HCl (Benadryl) 50 mg STAT STAT IM 02/02/20 13:33 02/02/20 13:37 DC 02/02/20 13:45 Diphenhydramine HCl (Benadryl) 50 mg STAT STAT IM 02/02/20 16:52 02/02/20 16:55 DC 02/02/20 17:09 Docusate Sodium (Colace) 100 mg DAILY PO 01/08/20 09:00 02/07/20 08:59 DC 02/03/20 10:23 Fluphenazine HCl (Prolixin) 10 mg BID PO 12/23/19 09:00 12/28/19 09:42 DC Haloperidol (Haldol) 5 mg BID PO 01/18/20 09:00 02/03/20 21:00 Haloperidol (Haldol) 5 mg STAT STAT IM 02/05/20 14:41 02/05/20 14:42 DC 02/05/20 14:50 Haloperidol (Haldol) 10 mg STAT STAT IM 01/23/20 01:38 01/23/20 01:40 DC 01/23/20 01:49 Haloperidol (Haldol) 10 mg STAT STAT IM 01/23/20 21:42 01/23/20 21:44 DC 01/23/20 21:55 Haloperidol (Haldol) 10 mg STAT STAT IM 01/24/20 23:45 01/24/20 23:47 DC 01/25/20 00:04 Haloperidol (Haldol) 10 mg STAT STAT IM 01/25/20 02:22 01/25/20 02:24 DC 01/25/20 02:27 Haloperidol (Haldol) 10 mg STAT STAT IM 01/26/20 16:50 01/26/20 16:52 DC 01/26/20 16:58 Haloperidol (Haldol) 10 mg STAT STAT IM 01/27/20 20:17 01/27/20 20:20 DC 01/27/20 20:32 Haloperidol (Haldol) 10 mg STAT STAT IM 01/31/20 20:14 01/31/20 20:16 DC 01/31/20 20:21 Haloperidol (Haldol) 10 mg STAT STAT IM 02/01/20 19:35 02/01/20 19:37 DC 02/01/20 19:41 Haloperidol (Haldol) 10 mg STAT STAT IM 02/02/20 13:33 02/02/20 13:37 DC 02/02/20 13:46 Haloperidol (Haldol) 10 mg STAT STAT IM 02/02/20 16:52 02/02/20 16:55 DC 02/02/20 17:09 Haloperidol (Haldol) 10 mg STAT STAT PO 01/26/20 16:38 01/26/20 16:52 DC Levothyroxine Sodium (Synthroid) 100 mcg DAILY@06 PO 12/24/19 06:00 01/17/20 06:17 [place] Carbonate (Eskalith Oral Solution) 300 mg BID PO 12/23/19 09:00 12/28/19 09:41 DC 12/28/19 09:35 [place] Carbonate (Esk[place] Oral Solution) 450 mg BID PO 12/28/19 21:00 12/31/19 10:58 DC 12/31/19 08:37 [place] Carbonate ([place] Carbonate) 450 mg BID PO 12/31/19 21:00 02/03/20 10:22 Lorazepam (Ativan) 1 mg STAT STAT IM 01/24/20 23:45 01/24/20 23:47 DC 01/25/20 00:04 Lorazepam (Ativan) 1 mg STAT STAT IM 02/06/20 14:47 02/06/20 14:49 DC 02/06/20 14:54 Lorazepam (Ativan) 2 mg STAT STAT IM 01/23/20 01:38 01/23/20 01:40 DC 01/23/20 01:49 Lorazepam (Ativan) 2 mg STAT STAT IM 01/23/20 21:42 01/23/20 21:44 DC 01/23/20 21:56 Lorazepam (Ativan) 2 mg STAT STAT IM 01/26/20 16:38 01/26/20 16:42 DC 01/26/20 16:59 Lorazepam (Ativan) 2 mg STAT STAT IM 01/27/20 20:17 01/27/20 20:20 DC 01/27/20 20:31 Lorazepam (Ativan) 2 mg STAT STAT IM 01/31/20 20:14 01/31/20 20:16 DC 01/31/20 20:21 Lorazepam (Ativan) 2 mg STAT STAT IM 02/01/20 19:35 02/01/20 19:37 DC 02/01/20 19:41 Lorazepam (Ativan) 2 mg STAT STAT IM 02/02/20 13:33 02/02/20 13:37 DC 02/02/20 13:46 Lorazepam (Ativan) 2 mg STAT STAT IM 02/02/20 16:52 02/02/20 16:55 DC 02/02/20 17:09 Lorazepam (Ativan) 2 mg STAT STAT IM 02/05/20 16:29 02/05/20 16:34 DC 02/05/20 16:38 Magnesium Hydroxide (Milk Of Magnesia) 30 ml DAILYPRN PRN PO CONSTIPATION 12/23/19 01:00 Miscellaneous (Unresolved Clarification Entry) SEE LABEL COMMENTS DAILY XX 01/21/20 09:00 01/21/20 08:04 DC Miscellaneous (Unresolved Clarification Entry) SEE LABEL COMMENTS DAILY XX 01/30/20 09:00 01/30/20 13:01 DC Miscellaneous (Unresolved Clarification Entry) SEE LABEL COMMENTS DAILY XX 02/02/20 09:00 02/04/20 09:30 DC Trazodone HCl (Desyrel) 50 mg QHSP PRN PO INSOMNIA 12/23/19 01:00 02/06/20 22:01 Allergies Coded Allergies: Sulfa (Sulfonamide Antibiotics) (Verified Allergy, Severe, hives, 04/25/19) amoxicillin (Verified Allergy, Intermediate, rash, 04/25/19) azithromycin (Verified Allergy, Intermediate, rash, 04/25/19) levothyroxine (Verified Allergy, Unknown, 12/22/19) pt states it makes her collapse Roger Reyes MD Feb 07, 2020 21:07
[2020-02-08] MEDS: traZODone 50 MG TAB PO PRN (01:00)
[2020-02-08] MEDS: LEVOTHYROXINE 100MCG TABLET (0.1MG) PO SCH (06:00)
[2020-02-08] MEDS: chlorproMAZINE 25 MG TABLET PO SCH ×3 (09:00→21:00)
[2020-02-08] MEDS: LITHIUM CARBONATE 150 MG CAP PO SCH ×2 (09:00→21:00)
[2020-02-08] MEDS: haloperidoL 5 MG TAB PO SCH ×2 (09:00→21:00)
--- NOTE | 2020-02-08 19:12 | MHIPNPDOC ---
[facility] Progress Note Progress Note DATE OF SERVICE: 02/08/20 Patient was seen for medical psychotherapy today Patient was seen for a medical psychotherapy session in which the patient's treatment plan was reviewed, mental status exam performed, vital signs reviewed, current medical conditions reviewed, and treatment goals were reviewed This visit was performed as a telehealth visit utilizing an interactive a/v telecommunications system or telephone that permitted real time communication between myself and the patient--permission/consent from patient/guardian was obtained Latrice continues to exhibit delusional thinking with loose associations and tangential thoughts She is noncompliant with her medications and refusing to take either the Haldol Thorazine or lithium At this point the plan is to proceed with treatment on an inpatient unit here albeit on a involuntary basis At this point there is a consideration and planned to proceed to obtain a court order to treat Latrice with appropriate psychotropic medication over objection There was also the consideration of a long-term psychiatric unit for treatment setting She is now been here for 6 weeks without any real improvement in in her condition Mental status She is alert but disoriented to reality She denies suicidality but does exhibit delusional thinking and at times appears to be responding to internal stimuli She was calm through the interview Tangential thoughts Paranoid delusions Patient denies suicidal or homicidal thoughts TIME SPENT: 20 minutes Vital Signs Vital Signs Date Time Temp Pulse Resp B/P (MAP) Pulse Ox O2 Delivery O2 Flow Rate FiO2 02/08/20 06:22 97.9 18 02/06/20 16:20 94 02/02/20 17:15 143/99 98 Room Air Current Medications Current Medications Medications (Trade) Dose Ordered Sig/Ruth Route PRN Reason Start Time Stop Time Status Last Admin Dose Admin Acetaminophen (Tylenol Tab) 650 mg Q6HP PRN PO HEADACHE or DISCOMFORT 12/23/19 01:00 02/03/20 14:04 Al Hydrox/Mg Hydrox/Simethicone (Mylanta) 30 ml Q4HP PRN PO HEARTBURN/INDIGESTION 12/23/19 01:00 Chlorpromazine HCl (Thorazine) 50 mg STAT STAT IM 02/01/20 21:01 02/01/20 21:03 DC 02/01/20 21:07 Chlorpromazine HCl (Thorazine) 50 mg STAT STAT IM 02/05/20 16:29 02/05/20 16:34 DC 02/05/20 16:38 Chlorpromazine HCl (Thorazine) 50 mg STAT STAT IM 02/06/20 14:47 02/06/20 14:49 DC 02/06/20 14:54 Chlorpromazine HCl (Thorazine) 100 mg Q6HP PRN PO AGITATION 12/28/19 14:00 12/28/19 14:00 DC Chlorpromazine HCl (Thorazine) 100 mg STAT STAT IM 12/29/19 13:02 12/29/19 13:04 DC 12/29/19 13:32 Chlorpromazine HCl (Thorazine) 100 mg STAT STAT IM 01/31/20 21:38 01/31/20 21:40 DC 01/31/20 21:42 Chlorpromazine HCl (Thorazine) 150 mg Q6HP PRN PO AGITATION/anxiety 12/28/19 14:00 01/04/20 13:34 DC 01/04/20 09:25 Chlorpromazine HCl (Thorazine) 150 mg STAT STAT IM 01/23/20 19:56 01/23/20 19:58 DC 01/23/20 19:59 Chlorpromazine HCl (Thorazine) 150 mg STAT STAT IM 01/27/20 22:16 01/27/20 22:17 DC 01/27/20 22:54 Chlorpromazine HCl (Thorazine) 150 mg TID PO 01/04/20 16:00 02/04/20 15:35 Clozapine (Clozaril) 12.5 mg QHS PO 01/06/20 21:00 01/12/20 09:29 DC 01/11/20 20:13 Clozapine (Clozaril) 25 mg BID PO 01/14/20 21:00 01/18/20 09:33 DC 01/16/20 21:17 Clozapine (Clozaril) 25 mg QHS PO 01/12/20 21:00 01/14/20 10:58 DC 01/13/20 22:43 Diphenhydramine HCl (Benadryl) 50 mg Q4HP PRN PO ANXIETY/AGITATION 12/23/19 15:00 Diphenhydramine HCl (Benadryl) 50 mg STAT STAT IM 12/22/19 21:28 12/22/19 21:30 DC 12/22/19 22:03 Diphenhydramine HCl (Benadryl) 50 mg STAT STAT IM 01/23/20 01:38 01/23/20 01:40 DC 01/23/20 01:49 Diphenhydramine HCl (Benadryl) 50 mg STAT STAT IM 01/23/20 19:56 01/23/20 19:58 DC 01/23/20 20:00 Diphenhydramine HCl (Benadryl) 50 mg STAT STAT IM 01/26/20 16:38 01/26/20 16:42 DC 01/26/20 16:59 Diphenhydramine HCl (Benadryl) 50 mg STAT STAT IM 01/27/20 20:17 01/27/20 20:20 DC 01/27/20 20:32 Diphenhydramine HCl (Benadryl) 50 mg STAT STAT IM 01/31/20 20:14 01/31/20 20:16 DC 01/31/20 20:21 Diphenhydramine HCl (Benadryl) 50 mg STAT STAT IM 02/02/20 13:33 02/02/20 13:37 DC 02/02/20 13:45 Diphenhydramine HCl (Benadryl) 50 mg STAT STAT IM 02/02/20 16:52 02/02/20 16:55 DC 02/02/20 17:09 Docusate Sodium (Colace) 100 mg DAILY PO 01/08/20 09:00 02/07/20 08:59 DC 02/03/20 10:23 Fluphenazine HCl (Prolixin) 10 mg BID PO 12/23/19 09:00 12/28/19 09:42 DC Haloperidol (Haldol) 5 mg BID PO 01/18/20 09:00 02/03/20 21:00 Haloperidol (Haldol) 5 mg STAT STAT IM 02/05/20 14:41 02/05/20 14:42 DC 02/05/20 14:50 Haloperidol (Haldol) 10 mg STAT STAT IM 01/23/20 01:38 01/23/20 01:40 DC 01/23/20 01:49 Haloperidol (Haldol) 10 mg STAT STAT IM 01/23/20 21:42 01/23/20 21:44 DC 6/14/20 21:55 Haloperidol (Haldol) 10 mg STAT STAT IM 01/24/20 23:45 01/24/20 23:47 DC 01/25/20 00:04 Haloperidol (Haldol) 10 mg STAT STAT IM 01/25/20 02:22 01/25/20 02:24 DC 01/25/20 02:27 Haloperidol (Haldol) 10 mg STAT STAT IM 01/26/20 16:50 01/26/20 16:52 DC 01/26/20 16:58 Haloperidol (Haldol) 10 mg STAT STAT IM 01/27/20 20:17 01/27/20 20:20 DC 01/27/20 20:32 Haloperidol (Haldol) 10 mg STAT STAT IM 01/31/20 20:14 01/31/20 20:16 DC 01/31/20 20:21 Haloperidol (Haldol) 10 mg STAT STAT IM 02/01/20 19:35 02/01/20 19:37 DC 02/01/20 19:41 Haloperidol (Haldol) 10 mg STAT STAT IM 02/02/20 13:33 02/02/20 13:37 DC 02/02/20 13:46 Haloperidol (Haldol) 10 mg STAT STAT IM 02/02/20 16:52 02/02/20 16:55 DC 02/02/20 17:09 Haloperidol (Haldol) 10 mg STAT STAT PO 01/26/20 16:38 01/26/20 16:52 DC Levothyroxine Sodium (Synthroid) 100 mcg DAILY@06 PO 12/24/19 06:00 01/17/20 06:17 [place] Carbonate (Eskalith Oral Solution) 300 mg BID PO 12/23/19 09:00 12/28/19 09:41 DC 12/28/19 09:35 [place] Carbonate (Eskalith Oral Solution) 450 mg BID PO 12/28/19 21:00 12/31/19 10:58 DC 12/31/19 08:37 [place] Carbonate ([place] Carbonate) 450 mg BID PO 12/31/19 21:00 02/03/20 10:22 Lorazepam (Ativan) 1 mg STAT STAT IM 01/24/20 23:45 01/24/20 23:47 DC 01/25/20 00:04 Lorazepam (Ativan) 1 mg STAT STAT IM 02/06/20 14:47 02/06/20 14:49 DC 02/06/20 14:54 Lorazepam (Ativan) 2 mg STAT STAT IM 01/23/20 01:38 01/23/20 01:40 DC 01/23/20 01:49 Lorazepam (Ativan) 2 mg STAT STAT IM 01/23/20 21:42 01/23/20 21:44 DC 01/23/20 21:56 Lorazepam (Ativan) 2 mg STAT STAT IM 01/26/20 16:38 01/26/20 16:42 DC 01/26/20 16:59 Lorazepam (Ativan) 2 mg STAT STAT IM 01/27/20 20:17 01/27/20 20:20 DC 01/27/20 20:31 Lorazepam (Ativan) 2 mg STAT STAT IM 01/31/20 20:14 01/31/20 20:16 DC 01/31/20 20:21 Lorazepam (Ativan) 2 mg STAT STAT IM 02/01/20 19:35 02/01/20 19:37 DC 02/01/20 19:41 Lorazepam (Ativan) 2 mg STAT STAT IM 02/02/20 13:33 02/02/20 13:37 DC 02/02/20 13:46 Lorazepam (Ativan) 2 mg STAT STAT IM 02/02/20 16:52 02/02/20 16:55 DC 02/02/20 17:09 Lorazepam (Ativan) 2 mg STAT STAT IM 02/05/20 16:29 02/05/20 16:34 DC 02/05/20 16:38 Magnesium Hydroxide (Milk Of Magnesia) 30 ml DAILYPRN PRN PO CONSTIPATION 12/23/19 01:00 Miscellaneous (Unresolved Clarification Entry) SEE LABEL COMMENTS DAILY XX 01/21/20 09:00 01/21/20 08:04 DC Miscellaneous (Unresolved Clarification Entry) SEE LABEL COMMENTS DAILY XX 01/30/20 09:00 01/30/20 13:01 DC Miscellaneous (Unresolved Clarification Entry) SEE LABEL COMMENTS DAILY XX 02/02/20 09:00 02/04/20 09:30 DC Trazodone HCl (Desyrel) 50 mg QHSP PRN PO INSOMNIA 12/23/19 01:00 02/08/20 01:00 Allergies Coded Allergies: Sulfa (Sulfonamide Antibiotics) (Verified Allergy, Severe, hives, 04/25/19) amoxicillin (Verified Allergy, Intermediate, rash, 04/25/19) azithromycin (Verified Allergy, Intermediate, rash, 04/25/19) levothyroxine (Verified Allergy, Unknown, 12/22/19) pt states it makes her collapse Roger Reyes MD Feb 08, 2020 19:12
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
[2020-02-09] MEDS: LEVOTHYROXINE 100MCG TABLET (0.1MG) PO SCH (06:00)
[2020-02-09] MEDS: haloperidoL 5 MG TAB PO SCH ×2 (09:00→20:28)
[2020-02-09] MEDS: LITHIUM CARBONATE 150 MG CAP PO SCH ×2 (09:00→20:28)
[2020-02-09] MEDS: chlorproMAZINE 25 MG TABLET PO SCH ×3 (09:00→20:28)
[2020-02-09] MEDS ORDERED: diphenhydrAMINE 50MG/ML VIAL (J1200) IM ONE (20:00)
--- NOTE | 2020-02-09 20:23 | MHIPNPDOC ---
[facility] Progress Note Progress Note DATE OF SERVICE: 02/09/20 Latrice was seen for medical psychotherapy today Patient was seen for a medical psychotherapy session in which the patient's t reatment plan was reviewed, mental status exam performed, vital signs reviewed, current medical conditions reviewed, and treatment goals were reviewed This visit was performed as a telehealth visit utilizing an interactive a/v telecommunications system or telephone that permitted real time communication between myself and the patient--permission/consent from patient/guardian was obtained Latrice continues to reject conventional treatment and object to any kind of oral psychotropic medication--clearly she has no insight into her illness and she remains very disturbed She continues to focus on her wish for Benadryl injections clearly psychotic thinking Her mental status is that her affect is flat she continues to act inappropriately in terms of her behavior she is irritable easily frustrated has a short attention span cannot concentrate has no active suicidal behavior No change in treatment plan and we will pursue at some point medication over objection Vital Signs Vital Signs Date Time Temp Pulse Resp B/P (MAP) Pulse Ox O2 Delivery O2 Flow Rate FiO2 02/09/20 08:22 Room Air 02/08/20 06:22 97.9 18 02/06/20 16:20 94 Current Medications Current Medications Medications (Trade) Dose Ordered Sig/Ruth Route PRN Reason Start Time Stop Time Status Last Admin Dose Admin Acetaminophen (Tylenol Tab) 650 mg Q6HP PRN PO HEADACHE or DISCOMFORT 12/23/19 01:00 02/03/20 14:04 Al Hydrox/Mg Hydrox/Simethicone (Mylanta) 30 ml Q4HP PRN PO HEARTBURN/INDIGESTION 12/23/19 01:00 Chlorpromazine HCl (Thorazine) 50 mg STAT STAT IM 02/01/20 21:01 02/01/20 21:03 DC 02/01/20 21:07 Chlorpromazine HCl (Thorazine) 50 mg STAT STAT IM 02/05/20 16:29 02/05/20 16:34 DC 02/05/20 16:38 Chlorpromazine HCl (Thorazine) 50 mg STAT STAT IM 02/06/20 14:47 02/06/20 14:49 DC 02/06/20 14:54 Chlorpromazine HCl (Thorazine) 100 mg Q6HP PRN PO AGITATION 12/28/19 14:00 12/28/19 14:00 DC Chlorpromazine HCl (Thorazine) 100 mg STAT STAT IM 12/29/19 13:02 12/29/19 13:04 DC 12/29/19 13:32 Chlorpromazine HCl (Thorazine) 100 mg STAT STAT IM 01/31/20 21:38 01/31/20 21:40 DC 01/31/20 21:42 Chlorpromazine HCl (Thorazine) 150 mg Q6HP PRN PO AGITATION/anxiety 12/28/19 14:00 01/04/20 13:34 DC 01/04/20 09:25 Chlorpromazine HCl (Thorazine) 150 mg STAT STAT IM 01/23/20 19:56 01/23/20 19:58 DC 01/23/20 19:59 Chlorpromazine HCl (Thorazine) 150 mg STAT STAT IM 01/27/20 22:16 01/27/20 22:17 DC 01/27/20 22:54 Chlorpromazine HCl (Thorazine) 150 mg TID PO 01/04/20 16:00 02/04/20 15:35 Clozapine (Clozaril) 12.5 mg QHS PO 01/06/20 21:00 01/12/20 09:29 DC 01/11/20 20:13 Clozapine (Clozaril) 25 mg BID PO 01/14/20 21:00 01/18/20 09:33 DC 01/16/20 21:17 Clozapine (Clozaril) 25 mg QHS PO 01/12/20 21:00 01/14/20 10:58 DC 01/13/20 22:43 Diphenhydramine HCl (Benadryl) 50 mg Q4HP PRN PO ANXIETY/AGITATION 12/23/19 15:00 Diphenhydramine HCl (Benadryl) 50 mg STAT STAT IM 12/22/19 21:28 12/22/19 21:30 DC 12/22/19 22:03 Diphenhydramine HCl (Benadryl) 50 mg STAT STAT IM 01/23/20 01:38 01/23/20 01:40 DC 01/23/20 01:49 Diphenhydramine HCl (Benadryl) 50 mg STAT STAT IM 01/23/20 19:56 01/23/20 19:58 DC 01/23/20 20:00 Diphenhydramine HCl (Benadryl) 50 mg STAT STAT IM 01/26/20 16:38 01/26/20 16:42 DC 01/26/20 16:59 Diphenhydramine HCl (Benadryl) 50 mg STAT STAT IM 01/27/20 20:17 01/27/20 20:20 DC 01/27/20 20:32 Diphenhydramine HCl (Benadryl) 50 mg STAT STAT IM 01/31/20 20:14 01/31/20 20:16 DC 01/31/20 20:21 Diphenhydramine HCl (Benadryl) 50 mg STAT STAT IM 02/02/20 13:33 02/02/20 13:37 DC 02/02/20 13:45 Diphenhydramine HCl (Benadryl) 50 mg STAT STAT IM 02/02/20 16:52 02/02/20 16:55 DC 02/02/20 17:09 Docusate Sodium (Colace) 100 mg DAILY PO 01/08/20 09:00 02/07/20 08:59 DC 02/03/20 10:23 Fluphenazine HCl (Prolixin) 10 mg BID PO 12/23/19 09:00 12/28/19 09:42 DC Haloperidol (Haldol) 5 mg BID PO 01/18/20 09:00 02/03/20 21:00 Haloperidol (Haldol) 5 mg STAT STAT IM 02/05/20 14:41 02/05/20 14:42 DC 02/05/20 14:50 Haloperidol (Haldol) 10 mg STAT STAT IM 01/23/20 01:38 01/23/20 01:40 DC 01/23/20 01:49 Haloperidol (Haldol) 10 mg STAT STAT IM 01/23/20 21:42 01/23/20 21:44 DC 01/23/20 21:55 Haloperidol (Haldol) 10 mg STAT STAT IM 01/24/20 23:45 01/24/20 23:47 DC 01/25/20 00:04 Haloperidol (Haldol) 10 mg STAT STAT IM 01/25/20 02:22 01/25/20 02:24 DC 01/25/20 02:27 Haloperidol (Haldol) 10 mg STAT STAT IM 01/26/20 16:50 01/26/20 16:52 DC 01/26/20 16:58 Haloperidol (Haldol) 10 mg STAT STAT IM 01/27/20 20:17 01/27/20 20:20 DC 01/27/20 20:32 Haloperidol (Haldol) 10 mg STAT STAT IM 01/31/20 20:14 01/31/20 20:16 DC 01/31/20 20:21 Haloperidol (Haldol) 10 mg STAT STAT IM 02/01/20 19:35 02/01/20 19:37 DC 02/01/20 19:41 Haloperidol (Haldol) 10 mg STAT STAT IM 02/02/20 13:33 02/02/20 13:37 DC 02/02/20 13:46 Haloperidol (Haldol) 10 mg STAT STAT IM 02/02/20 16:52 02/02/20 16:55 DC 02/02/20 17:09 Haloperidol (Haldol) 10 mg STAT STAT PO 01/26/20 16:38 01/26/20 16:52 DC Levothyroxine Sodium (Synthroid) 100 mcg DAILY@06 PO 12/24/19 06:00 01/17/20 06:17 [place] Carbonate (Eskalith Oral Solution) 300 mg BID PO 12/23/19 09:00 12/28/19 09:41 DC 12/28/19 09:35 [place] Carbonate (Eskalith Oral Solution) 450 mg BID PO 12/28/19 21:00 12/31/19 10:58 DC 12/31/19 08:37 [place] Carbonate ([place] Carbonate) 450 mg BID PO 12/31/19 21:00 02/03/20 10:22 Lorazepam (Ativan) 1 mg STAT STAT IM 01/24/20 23:45 01/24/20 23:47 DC 01/25/20 00:04 Lorazepam (Ativan) 1 mg STAT STAT IM 02/06/20 14:47 02/06/20 14:49 DC 02/06/20 14:54 Lorazepam (Ativan) 2 mg STAT STAT IM 01/23/20 01:38 01/23/20 01:40 DC 01/23/20 01:49 Lorazepam (Ativan) 2 mg STAT STAT IM 01/23/20 21:42 01/23/20 21:44 DC 01/23/20 21:56 Lorazepam (Ativan) 2 mg STAT STAT IM 01/26/20 16:38 01/26/20 16:42 DC 01/26/20 16:59 Lorazepam (Ativan) 2 mg STAT STAT IM 01/27/20 20:17 01/27/20 20:20 DC 01/27/20 20:31 Lorazepam (Ativan) 2 mg STAT STAT IM 01/31/20 20:14 01/31/20 20:16 DC 01/31/20 20:21 Lorazepam (Ativan) 2 mg STAT STAT IM 02/01/20 19:35 02/01/20 19:37 DC 02/01/20 19:41 Lorazepam (Ativan) 2 mg STAT STAT IM 02/02/20 13:33 02/02/20 13:37 DC 02/02/20 13:46 Lorazepam (Ativan) 2 mg STAT STAT IM 02/02/20 16:52 02/02/20 16:55 DC 02/02/20 17:09 Lorazepam (Ativan) 2 mg STAT STAT IM 02/05/20 16:29 02/05/20 16:34 DC 02/05/20 16:38 Magnesium Hydroxide (Milk Of Magnesia) 30 ml DAILYPRN PRN PO CONSTIPATION 12/23/19 01:00 Miscellaneous (Unresolved Clarification Entry) SEE LABEL COMMENTS DAILY XX 01/21/20 09:00 01/21/20 08:04 DC Miscellaneous (Unresolved Clarification Entry) SEE LABEL COMMENTS DAILY XX 01/30/20 09:00 01/30/20 13:01 DC Miscellaneous (Unresolved Clarification Entry) SEE LABEL COMMENTS DAILY XX 02/02/20 09:00 02/04/20 09:30 DC Trazodone HCl (Desyrel) 50 mg QHSP PRN PO INSOMNIA 12/23/19 01:00 02/08/20 01:00 Allergies Coded Allergies: Sulfa (Sulfonamide Antibiotics) (Verified Allergy, Severe, hives, 04/25/19) amoxicillin (Verified Allergy, Intermediate, rash, 04/25/19) azithromycin (Verified Allergy, Intermediate, rash, 04/25/19) levothyroxine (Verified Allergy, Unknown, 12/22/19) pt states it makes her collapse Yacona,Roger F. MD Feb 09, 2020 20:23
[2020-02-10] MEDS: LEVOTHYROXINE 100MCG TABLET (0.1MG) PO SCH (06:00)
[2020-02-10] MEDS: LITHIUM CARBONATE 150 MG CAP PO SCH ×2 (09:00→21:00)
[2020-02-10] MEDS: chlorproMAZINE 25 MG TABLET PO SCH ×3 (09:00→21:00)
[2020-02-10] MEDS: haloperidoL 5 MG TAB PO SCH ×2 (09:00→21:00)
--- NOTE | 2020-02-10 19:11 | MHIPNPDOC ---
[facility] Progress Note Progress Note DATE OF SERVICE: 02/10/20 Latrice refused to meet and discuss anything with me today she instead preferred to stay in bed Her case was discussed in treatment team meeting this morning and no significant change was reported I will attempt to meet with her again tomorrow after discussing her case and treatment further with the treatment team Vital Signs Vital Signs Date Time Temp Pulse Resp B/P (MAP) Pulse Ox O2 Delivery O2 Flow Rate FiO2 02/10/20 10:47 Room Air 02/08/20 06:22 97.9 18 02/06/20 16:20 94 Current Medications Current Medications Medications (Trade) Dose Ordered Sig/Ruth Route PRN Reason Start Time Stop Time Status Last Admin Dose Admin Acetaminophen (Tylenol Tab) 650 mg Q6HP PRN PO HEADACHE or DISCOMFORT 12/23/19 01:00 02/03/20 14:04 Al Hydrox/Mg Hydrox/Simethicone (Mylanta) 30 ml Q4HP PRN PO HEARTBURN/INDIGESTION 12/23/19 01:00 Chlorpromazine HCl (Thorazine) 50 mg STAT STAT IM 02/01/20 21:01 02/01/20 21:03 DC 02/01/20 21:07 Chlorpromazine HCl (Thorazine) 50 mg STAT STAT IM 02/05/20 16:29 02/05/20 16:34 DC 02/05/20 16:38 Chlorpromazine HCl (Thorazine) 50 mg STAT STAT IM 02/06/20 14:47 02/06/20 14:49 DC 02/06/20 14:54 Chlorpromazine HCl (Thorazine) 100 mg Q6HP PRN PO AGITATION 12/28/19 14:00 12/28/19 14:00 DC Chlorpromazine HCl (Thorazine) 100 mg STAT STAT IM 12/29/19 13:02 12/29/19 13:04 DC 12/29/19 13:32 Chlorpromazine HCl (Thorazine) 100 mg STAT STAT IM 01/31/20 21:38 01/31/20 21:40 DC 01/31/20 21:42 Chlorpromazine HCl (Thorazine) 150 mg Q6HP PRN PO AGITATION/anxiety 12/28/19 14:00 01/04/20 13:34 DC 01/04/20 09:25 Chlorpromazine HCl (Thorazine) 150 mg STAT STAT IM 01/23/20 19:56 01/23/20 19:58 DC 01/23/20 19:59 Chlorpromazine HCl (Thorazine) 150 mg STAT STAT IM 01/27/20 22:16 01/27/20 22:17 DC 01/27/20 22:54 Chlorpromazine HCl (Thorazine) 150 mg TID PO 01/04/20 16:00 02/04/20 15:35 Clozapine (Clozaril) 12.5 mg QHS PO 01/06/20 21:00 01/12/20 09:29 DC 01/11/20 20:13 Clozapine (Clozaril) 25 mg BID PO 01/14/20 21:00 01/18/20 09:33 DC 01/16/20 21:17 Clozapine (Clozaril) 25 mg QHS PO 01/12/20 21:00 01/14/20 10:58 DC 01/13/20 22:43 Diphenhydramine HCl (Benadryl) 50 mg Q4HP PRN PO ANXIETY/AGITATION 12/23/19 15:00 Diphenhydramine HCl (Benadryl) 50 mg STAT STAT IM 12/22/19 21:28 12/22/19 21:30 DC 12/22/19 22:03 Diphenhydramine HCl (Benadryl) 50 mg STAT STAT IM 01/23/20 01:38 01/23/20 01:40 DC 01/23/20 01:49 Diphenhydramine HCl (Benadryl) 50 mg STAT STAT IM 01/23/20 19:56 01/23/20 19:58 DC 01/23/20 20:00 Diphenhydramine HCl (Benadryl) 50 mg STAT STAT IM 01/26/20 16:38 01/26/20 16:42 DC 01/26/20 16:59 Diphenhydramine HCl (Benadryl) 50 mg STAT STAT IM 01/27/20 20:17 01/27/20 20:20 DC 01/27/20 20:32 Diphenhydramine HCl (Benadryl) 50 mg STAT STAT IM 01/31/20 20:14 01/31/20 20:16 DC 01/31/20 20:21 Diphenhydramine HCl (Benadryl) 50 mg STAT STAT IM 02/02/20 13:33 02/02/20 13:37 DC 02/02/20 13:45 Diphenhydramine HCl (Benadryl) 50 mg STAT STAT IM 02/02/20 16:52 02/02/20 16:55 DC 02/02/20 17:09 Docusate Sodium (Colace) 100 mg DAILY PO 01/08/20 09:00 02/07/20 08:59 DC 02/03/20 10:23 Fluphenazine HCl (Prolixin) 10 mg BID PO 12/23/19 09:00 12/28/19 09:42 DC Haloperidol (Haldol) 5 mg BID PO 01/18/20 09:00 02/03/20 21:00 Haloperidol (Haldol) 5 mg STAT STAT IM 02/05/20 14:41 02/05/20 14:42 DC 02/05/20 14:50 Haloperidol (Haldol) 10 mg STAT STAT IM 01/23/20 01:38 01/23/20 01:40 DC 01/23/20 01:49 Haloperidol (Haldol) 10 mg STAT STAT IM 01/23/20 21:42 01/23/20 21:44 DC 01/23/20 21:55 Haloperidol (Haldol) 10 mg STAT STAT IM 01/24/20 23:45 01/24/20 23:47 DC 01/25/20 00:04 Haloperidol (Haldol) 10 mg STAT STAT IM 01/25/20 02:22 01/25/20 02:24 DC 01/25/20 02:27 Haloperidol (Haldol) 10 mg STAT STAT IM 01/26/20 16:50 01/26/20 16:52 DC 01/26/20 16:58 Haloperidol (Haldol) 10 mg STAT STAT IM 01/27/20 20:17 01/27/20 20:20 DC 01/27/20 20:32 Haloperidol (Haldol) 10 mg STAT STAT IM 01/31/20 20:14 01/31/20 20:16 DC 01/31/20 20:21 Haloperidol (Haldol) 10 mg STAT STAT IM 02/01/20 19:35 02/01/20 19:37 DC 02/01/20 19:41 Haloperidol (Haldol) 10 mg STAT STAT IM 02/02/20 13:33 02/02/20 13:37 DC 02/02/20 13:46 Haloperidol (Haldol) 10 mg STAT STAT IM 02/02/20 16:52 02/02/20 16:55 DC 02/02/20 17:09 Haloperidol (Haldol) 10 mg STAT STAT PO 01/26/20 16:38 01/26/20 16:52 DC Levothyroxine Sodium (Synthroid) 100 mcg DAILY@06 PO 12/24/19 06:00 01/17/20 06:17 [place] Carbonate (Eskalith Oral Solution) 300 mg BID PO 12/23/19 09:00 12/28/19 09:41 DC 12/28/19 09:35 [place] Carbonate (Eskalith Oral Solution) 450 mg BID PO 12/28/19 21:00 12/31/19 10:58 DC 12/31/19 08:37 [place] Carbonate ([place] Carbonate) 450 mg BID PO 12/31/19 21:00 02/03/20 10:22 Lorazepam (Ativan) 1 mg STAT STAT IM 01/24/20 23:45 01/24/20 23:47 DC 01/25/20 00:04 Lorazepam (Ativan) 1 mg STAT STAT IM 02/06/20 14:47 02/06/20 14:49 DC 02/06/20 14:54 Lorazepam (Ativan) 2 mg STAT STAT IM 01/23/20 01:38 01/23/20 01:40 DC 01/23/20 01:49 Lorazepam (Ativan) 2 mg STAT STAT IM 01/23/20 21:42 01/23/20 21:44 DC 01/23/20 21:56 Lorazepam (Ativan) 2 mg STAT STAT IM 01/26/20 16:38 01/26/20 16:42 DC 01/26/20 16:59 Lorazepam (Ativan) 2 mg STAT STAT IM 01/27/20 20:17 01/27/20 20:20 DC 01/27/20 20:31 Lorazepam (Ativan) 2 mg STAT STAT IM 01/31/20 20:14 01/31/20 20:16 DC 01/31/20 20:21 Lorazepam (Ativan) 2 mg STAT STAT IM 02/01/20 19:35 02/01/20 19:37 DC 02/01/20 19:41 Lorazepam (Ativan) 2 mg STAT STAT IM 02/02/20 13:33 02/02/20 13:37 DC 02/02/20 13:46 Lorazepam (Ativan) 2 mg STAT STAT IM 02/02/20 16:52 02/02/20 16:55 DC 02/02/20 17:09 Lorazepam (Ativan) 2 mg STAT STAT IM 02/05/20 16:29 02/05/20 16:34 DC 02/05/20 16:38 Magnesium Hydroxide (Milk Of Magnesia) 30 ml DAILYPRN PRN PO CONSTIPATION 12/23/19 01:00 Miscellaneous (Unresolved Clarification Entry) SEE LABEL COMMENTS DAILY XX 01/21/20 09:00 01/21/20 08:04 DC Miscellaneous (Unresolved Clarification Entry) SEE LABEL COMMENTS DAILY XX 01/30/20 09:00 01/30/20 13:01 DC Miscellaneous (Unresolved Clarification Entry) SEE LABEL COMMENTS DAILY XX 02/02/20 09:00 02/04/20 09:30 DC Trazodone HCl (Desyrel) 50 mg QHSP PRN PO INSOMNIA 12/23/19 01:00 02/08/20 01:00 Allergies Coded Allergies: Sulfa (Sulfonamide Antibiotics) (Verified Allergy, Severe, hives, 04/25/19) amoxicillin (Verified Allergy, Intermediate, rash, 04/25/19) azithromycin (Verified Allergy, Intermediate, rash, 04/25/19) levothyroxine (Verified Allergy, Unknown, 12/22/19) pt states it makes her collapse Roger Reyes MD Feb 10, 2020 19:11
[2020-02-10] MEDS ORDERED: diphenhydrAMINE 50MG/ML VIAL (J1200) IM ONE (20:15)
[2020-02-11] MEDS: LEVOTHYROXINE 100MCG TABLET (0.1MG) PO SCH (06:00)
[2020-02-11] MEDS: LITHIUM CARBONATE 150 MG CAP PO SCH ×2 (11:19→20:42)
[2020-02-11] MEDS: chlorproMAZINE 25 MG TABLET PO SCH ×3 (11:19→20:42)
[2020-02-11] MEDS: haloperidoL 5 MG TAB PO SCH ×2 (11:19→20:42)
--- NOTE | 2020-02-11 17:35 | MHIPNPDOC ---
[facility] Progress Note Progress Note DATE OF SERVICE: 02/11/20 Latrice refused to meet with me today--she was isolating in her home throughout most of the day--nursing is checking on her on a regular basis No change in treatment plan Patient continues to not comply with her treatment Vital Signs Vital Signs Date Time Temp Pulse Resp B/P (MAP) Pulse Ox O2 Delivery O2 Flow Rate FiO2 02/11/20 11:22 Room Air 02/08/20 06:22 97.9 18 02/06/20 16:20 94 Current Medications Current Medications Medications (Trade) Dose Ordered Sig/Ruth Route PRN Reason Start Time Stop Time Status Last Admin Dose Admin Acetaminophen (Tylenol Tab) 650 mg Q6HP PRN PO HEADACHE or DISCOMFORT 12/23/19 01:00 02/03/20 14:04 Al Hydrox/Mg Hydrox/Simethicone (Mylanta) 30 ml Q4HP PRN PO HEARTBURN/INDIGESTION 12/23/19 01:00 Chlorpromazine HCl (Thorazine) 50 mg STAT STAT IM 02/01/20 21:01 02/01/20 21:03 DC 02/01/20 21:07 Chlorpromazine HCl (Thorazine) 50 mg STAT STAT IM 02/05/20 16:29 02/05/20 16:34 DC 02/05/20 16:38 Chlorpromazine HCl (Thorazine) 50 mg STAT STAT IM 02/06/20 14:47 02/06/20 14:49 DC 02/06/20 14:54 Chlorpromazine HCl (Thorazine) 100 mg Q6HP PRN PO AGITATION 12/28/19 14:00 12/28/19 14:00 DC Chlorpromazine HCl (Thorazine) 100 mg STAT STAT IM 12/29/19 13:02 12/29/19 13:04 DC 12/29/19 13:32 Chlorpromazine HCl (Thorazine) 100 mg STAT STAT IM 01/31/20 21:38 01/31/20 21:40 DC 01/31/20 21:42 Chlorpromazine HCl (Thorazine) 150 mg Q6HP PRN PO AGITATION/anxiety 12/28/19 14:00 01/04/20 13:34 DC 01/04/20 09:25 Chlorpromazine HCl (Thorazine) 150 mg STAT STAT IM 01/23/20 19:56 01/23/20 19:58 DC 01/23/20 19:59 Chlorpromazine HCl (Thorazine) 150 mg STAT STAT IM 01/27/20 22:16 01/27/20 22:17 DC 01/27/20 22:54 Chlorpromazine HCl (Thorazine) 150 mg TID PO 01/04/20 16:00 02/04/20 15:35 Clozapine (Clozaril) 12.5 mg QHS PO 01/06/20 21:00 01/12/20 09:29 DC 01/11/20 20:13 Clozapine (Clozaril) 25 mg BID PO 01/14/20 21:00 01/18/20 09:33 DC 01/16/20 21:17 Clozapine (Clozaril) 25 mg QHS PO 01/12/20 21:00 01/14/20 10:58 DC 01/13/20 22:43 Diphenhydramine HCl (Benadryl) 50 mg Q4HP PRN PO ANXIETY/AGITATION 12/23/19 15:00 Diphenhydramine HCl (Benadryl) 50 mg STAT STAT IM 12/22/19 21:28 12/22/19 21:30 DC 12/22/19 22:03 Diphenhydramine HCl (Benadryl) 50 mg STAT STAT IM 01/23/20 01:38 01/23/20 01:40 DC 01/23/20 01:49 Diphenhydramine HCl (Benadryl) 50 mg STAT STAT IM 01/23/20 19:56 01/23/20 19:58 DC 01/23/20 20:00 Diphenhydramine HCl (Benadryl) 50 mg STAT STAT IM 01/26/20 16:38 01/26/20 16:42 DC 01/26/20 16:59 Diphenhydramine HCl (Benadryl) 50 mg STAT STAT IM 01/27/20 20:17 01/27/20 20:20 DC 01/27/20 20:32 Diphenhydramine HCl (Benadryl) 50 mg STAT STAT IM 01/31/20 20:14 01/31/20 20:16 DC 01/31/20 20:21 Diphenhydramine HCl (Benadryl) 50 mg STAT STAT IM 02/02/20 13:33 02/02/20 13:37 DC 02/02/20 13:45 Diphenhydramine HCl (Benadryl) 50 mg STAT STAT IM 02/02/20 16:52 02/02/20 16:55 DC 02/02/20 17:09 Docusate Sodium (Colace) 100 mg DAILY PO 01/08/20 09:00 02/07/20 08:59 DC 02/03/20 10:23 Fluphenazine HCl (Prolixin) 10 mg BID PO 12/23/19 09:00 12/28/19 09:42 DC Haloperidol (Haldol) 5 mg BID PO 01/18/20 09:00 02/03/20 21:00 Haloperidol (Haldol) 5 mg STAT STAT IM 02/05/20 14:41 02/05/20 14:42 DC 02/05/20 14:50 Haloperidol (Haldol) 10 mg STAT STAT IM 01/23/20 01:38 01/23/20 01:40 DC 01/23/20 01:49 Haloperidol (Haldol) 10 mg STAT STAT IM 01/23/20 21:42 01/23/20 21:44 DC 01/23/20 21:55 Haloperidol (Haldol) 10 mg STAT STAT IM 01/24/20 23:45 01/24/20 23:47 DC 01/25/20 00:04 Haloperidol (Haldol) 10 mg STAT STAT IM 01/25/20 02:22 01/25/20 02:24 DC 01/25/20 02:27 Haloperidol (Haldol) 10 mg STAT STAT IM 01/26/20 16:50 01/26/20 16:52 DC 01/26/20 16:58 Haloperidol (Haldol) 10 mg STAT STAT IM 01/27/20 20:17 01/27/20 20:20 DC 01/27/20 20:32 Haloperidol (Haldol) 10 mg STAT STAT IM 01/31/20 20:14 01/31/20 20:16 DC 01/31/20 20:21 Haloperidol (Haldol) 10 mg STAT STAT IM 02/01/20 19:35 02/01/20 19:37 DC 02/01/20 19:41 Haloperidol (Haldol) 10 mg STAT STAT IM 02/02/20 13:33 02/02/20 13:37 DC 02/02/20 13:46 Haloperidol (Haldol) 10 mg STAT STAT IM 02/02/20 16:52 02/02/20 16:55 DC 02/02/20 17:09 Haloperidol (Haldol) 10 mg STAT STAT PO 01/26/20 16:38 01/26/20 16:52 DC Levothyroxine Sodium (Synthroid) 100 mcg DAILY@06 PO 12/24/19 06:00 01/17/20 06:17 [employer] Carbonate (Eskalith Oral Solution) 300 mg BID PO 12/23/19 09:00 12/28/19 09:41 DC 12/28/19 09:35 [employer] Carbonate (Eskalith Oral Solution) 450 mg BID PO 12/28/19 21:00 12/31/19 10:58 DC 12/31/19 08:37 [employer] Carbonate ([employer] Carbonate) 450 mg BID PO 12/31/19 21:00 02/03/20 10:22 Lorazepam (Ativan) 1 mg STAT STAT IM 01/24/20 23:45 01/24/20 23:47 DC 01/25/20 00:04 Lorazepam (Ativan) 1 mg STAT STAT IM 02/06/20 14:47 02/06/20 14:49 DC 02/06/20 14:54 Lorazepam (Ativan) 2 mg STAT STAT IM 01/23/20 01:38 01/23/20 01:40 DC 01/23/20 01:49 Lorazepam (Ativan) 2 mg STAT STAT IM 01/23/20 21:42 01/23/20 21:44 DC 01/23/20 21:56 Lorazepam (Ativan) 2 mg STAT STAT IM 01/26/20 16:38 01/26/20 16:42 DC 01/26/20 16:59 Lorazepam (Ativan) 2 mg STAT STAT IM 01/27/20 20:17 01/27/20 20:20 DC 01/27/20 20:31 Lorazepam (Ativan) 2 mg STAT STAT IM 01/31/20 20:14 01/31/20 20:16 DC 01/31/20 20:21 Lorazepam (Ativan) 2 mg STAT STAT IM 02/01/20 19:35 02/01/20 19:37 DC 02/01/20 19:41 Lorazepam (Ativan) 2 mg STAT STAT IM 02/02/20 13:33 02/02/20 13:37 DC 02/02/20 13:46 Lorazepam (Ativan) 2 mg STAT STAT IM 02/02/20 16:52 02/02/20 16:55 DC 02/02/20 17:09 Lorazepam (Ativan) 2 mg STAT STAT IM 02/05/20 16:29 02/05/20 16:34 DC 02/05/20 16:38 Magnesium Hydroxide (Milk Of Magnesia) 30 ml DAILYPRN PRN PO CONSTIPATION 12/23/19 01:00 Miscellaneous (Unresolved Clarification Entry) SEE LABEL COMMENTS DAILY XX 01/21/20 09:00 01/21/20 08:04 DC Miscellaneous (Unresolved Clarification Entry) SEE LABEL COMMENTS DAILY XX 01/30/20 09:00 01/30/20 13:01 DC Miscellaneous (Unresolved Clarification Entry) SEE LABEL COMMENTS DAILY XX 02/02/20 09:00 02/04/20 09:30 DC Trazodone HCl (Desyrel) 50 mg QHSP PRN PO INSOMNIA 12/23/19 01:00 02/08/20 01:00 Allergies Coded Allergies: Sulfa (Sulfonamide Antibiotics) (Verified Allergy, Severe, hives, 04/25/19) amoxicillin (Verified Allergy, Intermediate, rash, 04/25/19) azithromycin (Verified Allergy, Intermediate, rash, 04/25/19) levothyroxine (Verified Allergy, Unknown, 12/22/19) pt states it makes her collapse Roger Reyes MD Feb 11, 2020 17:35
--- NOTE | 2020-02-11 18:55 | MHIPNPDOC ---
[facility] Progress Note Progress Note DATE OF SERVICE: 02/11/20 Subsequent to the earlier appointment day when Latrice refused to meet with me she did cooperate with a session in which we talked about her medication compliance and her need to address her psychiatric problems She agreed with nursing present to take a IM injection of long-acting Haldol 100 mg She also was requesting Benadryl which I agreed to give her 50 mg We will continue with the oral Haldol order of her as part of her current treatment plan Vital Signs Vital Signs Date Time Temp Pulse Resp B/P (MAP) Pulse Ox O2 Delivery O2 Flow Rate FiO2 02/11/20 11:22 Room Air 02/08/20 06:22 97.9 18 02/06/20 16:20 94 Current Medications Current Medications Medications (Trade) Dose Ordered Sig/Ruth Route PRN Reason Start Time Stop Time Status Last Admin Dose Admin Acetaminophen (Tylenol Tab) 650 mg Q6HP PRN PO HEADACHE or DISCOMFORT 12/23/19 01:00 02/03/20 14:04 Al Hydrox/Mg Hydrox/Simethicone (Mylanta) 30 ml Q4HP PRN PO HEARTBURN/INDIGESTION 12/23/19 01:00 Chlorpromazine HCl (Thorazine) 50 mg STAT STAT IM 02/01/20 21:01 02/01/20 21:03 DC 02/01/20 21:07 Chlorpromazine HCl (Thorazine) 50 mg STAT STAT IM 02/05/20 16:29 02/05/20 16:34 DC 02/05/20 16:38 Chlorpromazine HCl (Thorazine) 50 mg STAT STAT IM 02/06/20 14:47 02/06/20 14:49 DC 02/06/20 14:54 Chlorpromazine HCl (Thorazine) 100 mg Q6HP PRN PO AGITATION 12/28/19 14:00 12/28/19 14:00 DC Chlorpromazine HCl (Thorazine) 100 mg STAT STAT IM 12/29/19 13:02 12/29/19 13:04 DC 12/29/19 13:32 Chlorpromazine HCl (Thorazine) 100 mg STAT STAT IM 01/31/20 21:38 01/31/20 21:40 DC 01/31/20 21:42 Chlorpromazine HCl (Thorazine) 150 mg Q6HP PRN PO AGITATION/anxiety 12/28/19 14:00 01/04/20 13:34 DC 01/04/20 09:25 Chlorpromazine HCl (Thorazine) 150 mg STAT STAT IM 01/23/20 19:56 01/23/20 19:58 DC 01/23/20 19:59 Chlorpromazine HCl (Thorazine) 150 mg STAT STAT IM 01/27/20 22:16 01/27/20 22:17 DC 01/27/20 22:54 Chlorpromazine HCl (Thorazine) 150 mg TID PO 01/04/20 16:00 02/04/20 15:35 Clozapine (Clozaril) 12.5 mg QHS PO 01/06/20 21:00 01/12/20 09:29 DC 01/11/20 20:13 Clozapine (Clozaril) 25 mg BID PO 01/14/20 21:00 01/18/20 09:33 DC 01/16/20 21:17 Clozapine (Clozaril) 25 mg QHS PO 01/12/20 21:00 01/14/20 10:58 DC 01/13/20 22:43 Diphenhydramine HCl (Benadryl) 50 mg Q4HP PRN PO ANXIETY/AGITATION 12/23/19 15:00 Diphenhydramine HCl (Benadryl) 50 mg STAT STAT IM 12/22/19 21:28 12/22/19 21:30 DC 12/22/19 22:03 Diphenhydramine HCl (Benadryl) 50 mg STAT STAT IM 01/23/20 01:38 01/23/20 01:40 DC 01/23/20 01:49 Diphenhydramine HCl (Benadryl) 50 mg STAT STAT IM 01/23/20 19:56 01/23/20 19:58 DC 01/23/20 20:00 Diphenhydramine HCl (Benadryl) 50 mg STAT STAT IM 01/26/20 16:38 01/26/20 16:42 DC 01/26/20 16:59 Diphenhydramine HCl (Benadryl) 50 mg STAT STAT IM 01/27/20 20:17 01/27/20 20:20 DC 01/27/20 20:32 Diphenhydramine HCl (Benadryl) 50 mg STAT STAT IM 01/31/20 20:14 01/31/20 20:16 DC 01/31/20 20:21 Diphenhydramine HCl (Benadryl) 50 mg STAT STAT IM 02/02/20 13:33 02/02/20 13:37 DC 02/02/20 13:45 Diphenhydramine HCl (Benadryl) 50 mg STAT STAT IM 02/02/20 16:52 02/02/20 16:55 DC 02/02/20 17:09 Docusate Sodium (Colace) 100 mg DAILY PO 01/08/20 09:00 02/07/20 08:59 DC 02/03/20 10:23 Fluphenazine HCl (Prolixin) 10 mg BID PO 12/23/19 09:00 12/28/19 09:42 DC Haloperidol (Haldol) 5 mg BID PO 01/18/20 09:00 02/03/20 21:00 Haloperidol (Haldol) 5 mg STAT STAT IM 02/05/20 14:41 02/05/20 14:42 DC 02/05/20 14:50 Haloperidol (Haldol) 10 mg STAT STAT IM 01/23/20 01:38 01/23/20 01:40 DC 01/23/20 01:49 Haloperidol (Haldol) 10 mg STAT STAT IM 01/23/20 21:42 01/23/20 21:44 DC 01/23/20 21:55 Haloperidol (Haldol) 10 mg STAT STAT IM 01/24/20 23:45 01/24/20 23:47 DC 01/25/20 00:04 Haloperidol (Haldol) 10 mg STAT STAT IM 01/25/20 02:22 01/25/20 02:24 DC 01/25/20 02:27 Haloperidol (Haldol) 10 mg STAT STAT IM 01/26/20 16:50 01/26/20 16:52 DC 01/26/20 16:58 Haloperidol (Haldol) 10 mg STAT STAT IM 01/27/20 20:17 01/27/20 20:20 DC 01/27/20 20:32 Haloperidol (Haldol) 10 mg STAT STAT IM 01/31/20 20:14 01/31/20 20:16 DC 01/31/20 20:21 Haloperidol (Haldol) 10 mg STAT STAT IM 02/01/20 19:35 02/01/20 19:37 DC 02/01/20 19:41 Haloperidol (Haldol) 10 mg STAT STAT IM 02/02/20 13:33 02/02/20 13:37 DC 02/02/20 13:46 Haloperidol (Haldol) 10 mg STAT STAT IM 02/02/20 16:52 02/02/20 16:55 DC 02/02/20 17:09 Haloperidol (Haldol) 10 mg STAT STAT PO 01/26/20 16:38 01/26/20 16:52 DC Levothyroxine Sodium (Synthroid) 100 mcg DAILY@06 PO 12/24/19 06:00 01/17/20 06:17 [place] Carbonate (Eskalith Oral Solution) 300 mg BID PO 12/23/19 09:00 12/28/19 09:41 DC 12/28/19 09:35 [place] Carbonate (Eskalith Oral Solution) 450 mg BID PO 12/28/19 21:00 12/31/19 10:58 DC 12/31/19 08:37 [place] Carbonate ([place] Carbonate) 450 mg BID PO 12/31/19 21:00 02/03/20 10:22 Lorazepam (Ativan) 1 mg STAT STAT IM 01/24/20 23:45 01/24/20 23:47 DC 01/25/20 00:04 Lorazepam (Ativan) 1 mg STAT STAT IM 02/06/20 14:47 02/06/20 14:49 DC 02/06/20 14:54 Lorazepam (Ativan) 2 mg STAT STAT IM 01/23/20 01:38 01/23/20 01:40 DC 01/23/20 01:49 Lorazepam (Ativan) 2 mg STAT STAT IM 01/23/20 21:42 01/23/20 21:44 DC 01/23/20 21:56 Lorazepam (Ativan) 2 mg STAT STAT IM 01/26/20 16:38 01/26/20 16:42 DC 01/26/20 16:59 Lorazepam (Ativan) 2 mg STAT STAT IM 01/27/20 20:17 01/27/20 20:20 DC 01/27/20 20:31 Lorazepam (Ativan) 2 mg STAT STAT IM 01/31/20 20:14 01/31/20 20:16 DC 01/31/20 20:21 Lorazepam (Ativan) 2 mg STAT STAT IM 02/01/20 19:35 02/01/20 19:37 DC 02/01/20 19:41 Lorazepam (Ativan) 2 mg STAT STAT IM 02/02/20 13:33 02/02/20 13:37 DC 02/02/20 13:46 Lorazepam (Ativan) 2 mg STAT STAT IM 02/02/20 16:52 02/02/20 16:55 DC 02/02/20 17:09 Lorazepam (Ativan) 2 mg STAT STAT IM 02/05/20 16:29 02/05/20 16:34 DC 02/05/20 16:38 Magnesium Hydroxide (Milk Of Magnesia) 30 ml DAILYPRN PRN PO CONSTIPATION 12/23/19 01:00 Miscellaneous (Unresolved Clarification Entry) SEE LABEL COMMENTS DAILY XX 01/21/20 09:00 01/21/20 08:04 DC Miscellaneous (Unresolved Clarification Entry) SEE LABEL COMMENTS DAILY XX 01/30/20 09:00 01/30/20 13:01 DC Miscellaneous (Unresolved Clarification Entry) SEE LABEL COMMENTS DAILY XX 02/02/20 09:00 02/04/20 09:30 DC Trazodone HCl (Desyrel) 50 mg QHSP PRN PO INSOMNIA 12/23/19 01:00 02/08/20 01:00 Allergies Coded Allergies: Sulfa (Sulfonamide Antibiotics) (Verified Allergy, Severe, hives, 04/25/19) amoxicillin (Verified Allergy, Intermediate, rash, 04/25/19) azithromycin (Verified Allergy, Intermediate, rash, 04/25/19) levothyroxine (Verified Allergy, Unknown, 12/22/19) pt states it makes her collapse Roger Reyes MD Feb 11, 2020 18:55
[2020-02-11] MEDS ORDERED: diphenhydrAMINE 50MG/ML VIAL (J1200) IM ONE (19:00)
[2020-02-11] MEDS ORDERED: HALOPERIDOL DECANOATE 100 MG/ML VIAL (J1631) IM ONE (19:00)
[2020-02-12] MEDS: LEVOTHYROXINE 100MCG TABLET (0.1MG) PO SCH (06:00)
[2020-02-12] MEDS: LITHIUM CARBONATE 150 MG CAP PO SCH ×3 (09:00→21:03)
[2020-02-12] MEDS: haloperidoL 5 MG TAB PO SCH ×3 (09:00→21:02)
[2020-02-12] MEDS: chlorproMAZINE 25 MG TABLET PO SCH ×4 (09:00→21:02)
[2020-02-12] MEDS: diphenhydrAMINE 50MG/ML VIAL (J1200) IM ONE ×2 (21:02→22:30)
[2020-02-13] MEDS: LEVOTHYROXINE 100MCG TABLET (0.1MG) PO SCH (06:00)
[2020-02-13] MEDS: LITHIUM CARBONATE 150 MG CAP PO SCH ×2 (08:54→21:00)
[2020-02-13] MEDS: haloperidoL 5 MG TAB PO SCH ×2 (08:54→21:00)
[2020-02-13] MEDS: chlorproMAZINE 25 MG TABLET PO SCH ×3 (08:55→21:00)
[2020-02-13] MEDS ORDERED: diphenhydrAMINE 50MG CAP PO ONE (20:30)
[2020-02-13] MEDS ORDERED: diphenhydrAMINE 50MG/ML VIAL (J1200) IM ONE (21:00)
[2020-02-14] MEDS: LEVOTHYROXINE 100MCG TABLET (0.1MG) PO SCH (06:00)
[2020-02-14] MEDS: LITHIUM CARBONATE 150 MG CAP PO SCH ×2 (09:00→20:26)
[2020-02-14] MEDS: chlorproMAZINE 25 MG TABLET PO SCH ×3 (09:00→20:26)
[2020-02-14] MEDS: haloperidoL 5 MG TAB PO SCH ×2 (09:00→20:26)
--- NOTE | 2020-02-14 09:31 | MHIPNPDOC ---
[facility] Progress Note Progress Note DATE OF SERVICE: 02/14/20 HPI: Latrice presents today for concerns regarding her follow up. She wants to meet in ten minutes because she wants to get ready. She does not want to take medication orally. MEDICATIONS: She has been getting injections with haldol dec over the previous week with Dr. Reyes. She wants her Benadryl shot today, but knows that it is advised against. Objective General: disheveled Speech: pressured Thought processes: more linear than previous Thought content: focused on shots Abstract reasoning, and computation: less impaired than previous Description of associations: improving Description of abnormal or psychotic thoughts: still has bizarre ideation Judgment: limited Mood: ["okay"] Affect: flat Assessment F25.8 Other schizoaffective disorders Plan Continue observing patient on Haldol long-acting injectable, she does appear to be making some progress, much less aggressive. Continue one-to-one at this time. Retention will be sought as patient will likely need long-term care as she has very short times of stability. She has agreed for the Haldol, but continues to ask for Benadryl, but will attempt to avoid giving injections if possible. Will drop TOO as patient cons enting (although it's difficult to determine if she is willing to take medicines consistently) Vital Signs Vital Signs Date Time Temp Pulse Resp B/P (MAP) Pulse Ox O2 Delivery O2 Flow Rate FiO2 02/11/20 11:22 Room Air 02/08/20 06:22 97.9 18 Current Medications Current Medications Medications (Trade) Dose Ordered Sig/Ruth Route PRN Reason Start Time Stop Time Status Last Admin Dose Admin Acetaminophen (Tylenol Tab) 650 mg Q6HP PRN PO HEADACHE or DISCOMFORT 12/23/19 01:00 02/03/20 14:04 Al Hydrox/Mg Hydrox/Simethicone (Mylanta) 30 ml Q4HP PRN PO HEARTBURN/INDIGESTION 12/23/19 01:00 Chlorpromazine HCl (Thorazine) 50 mg STAT STAT IM 02/01/20 21:01 02/01/20 21:03 DC 02/01/20 21:07 Chlorpromazine HCl (Thorazine) 50 mg STAT STAT IM 02/05/20 16:29 02/05/20 16:34 DC 02/05/20 16:38 Chlorpromazine HCl (Thorazine) 50 mg STAT STAT IM 02/06/20 14:47 02/06/20 14:49 DC 02/06/20 14:54 Chlorpromazine HCl (Thorazine) 100 mg Q6HP PRN PO AGITATION 12/28/19 14:00 12/28/19 14:00 DC Chlorpromazine HCl (Thorazine) 100 mg STAT STAT IM 12/29/19 13:02 12/29/19 13:04 DC 12/29/19 13:32 Chlorpromazine HCl (Thorazine) 100 mg STAT STAT IM 01/31/20 21:38 01/31/20 21:40 DC 01/31/20 21:42 Chlorpromazine HCl (Thorazine) 150 mg Q6HP PRN PO AGITATION/anxiety 12/28/19 14:00 01/04/20 13:34 DC 01/04/20 09:25 Chlorpromazine HCl (Thorazine) 150 mg STAT STAT IM 01/23/20 19:56 01/23/20 19:58 DC 01/23/20 19:59 Chlorpromazine HCl (Thorazine) 150 mg STAT STAT IM 01/27/20 22:16 01/27/20 22:17 DC 01/27/20 22:54 Chlorpromazine HCl (Thorazine) 150 mg TID PO 01/04/20 16:00 02/04/20 15:35 Clozapine (Clozaril) 12.5 mg QHS PO 01/06/20 21:00 01/12/20 09:29 DC 01/11/20 20:13 Clozapine (Clozaril) 25 mg BID PO 01/14/20 21:00 01/18/20 09:33 DC 01/16/20 21:17 Clozapine (Clozaril) 25 mg QHS PO 01/12/20 21:00 01/14/20 10:58 DC 01/13/20 22:43 Diphenhydramine HCl (Benadryl) 50 mg Q4HP PRN PO ANXIETY/AGITATION 12/23/19 15:00 Diphenhydramine HCl (Benadryl) 50 mg STAT STAT IM 12/22/19 21:28 12/22/19 21:30 DC 12/22/19 22:03 Diphenhydramine HCl (Benadryl) 50 mg STAT STAT IM 01/23/20 01:38 01/23/20 01:40 DC 01/23/20 01:49 Diphenhydramine HCl (Benadryl) 50 mg STAT STAT IM 01/23/20 19:56 01/23/20 19:58 DC 01/23/20 20:00 Diphenhydramine HCl (Benadryl) 50 mg STAT STAT IM 01/26/20 16:38 01/26/20 16:42 DC 01/26/20 16:59 Diphenhydramine HCl (Benadryl) 50 mg STAT STAT IM 01/27/20 20:17 01/27/20 20:20 DC 01/27/20 20:32 Diphenhydramine HCl (Benadryl) 50 mg STAT STAT IM 01/31/20 20:14 01/31/20 20:16 DC 01/31/20 20:21 Diphenhydramine HCl (Benadryl) 50 mg STAT STAT IM 02/02/20 13:33 02/02/20 13:37 DC 02/02/20 13:45 Diphenhydramine HCl (Benadryl) 50 mg STAT STAT IM 02/02/20 16:52 02/02/20 16:55 DC 02/02/20 17:09 Docusate Sodium (Colace) 100 mg DAILY PO 01/08/20 09:00 02/07/20 08:59 DC 02/03/20 10:23 Fluphenazine HCl (Prolixin) 10 mg BID PO 12/23/19 09:00 12/28/19 09:42 DC Haloperidol (Haldol) 5 mg BID PO 01/18/20 09:00 02/03/20 21:00 Haloperidol (Haldol) 5 mg STAT STAT IM 02/05/20 14:41 02/05/20 14:42 DC 02/05/20 14:50 Haloperidol (Haldol) 10 mg STAT STAT IM 01/23/20 01:38 01/23/20 01:40 DC 01/23/20 01:49 Haloperidol (Haldol) 10 mg STAT STAT IM 01/23/20 21:42 01/23/20 21:44 DC 01/23/20 21:55 Haloperidol (Haldol) 10 mg STAT STAT IM 01/24/20 23:45 01/24/20 23:47 DC 01/25/20 00:04 Haloperidol (Haldol) 10 mg STAT STAT IM 01/25/20 02:22 01/25/20 02:24 DC 01/25/20 02:27 Haloperidol (Haldol) 10 mg STAT STAT IM 01/26/20 16:50 01/26/20 16:52 DC 01/26/20 16:58 Haloperidol (Haldol) 10 mg STAT STAT IM 01/27/20 20:17 01/27/20 20:20 DC 01/27/20 20:32 Haloperidol (Haldol) 10 mg STAT STAT IM 01/31/20 20:14 01/31/20 20:16 DC 01/31/20 20:21 Haloperidol (Haldol) 10 mg STAT STAT IM 02/01/20 19:35 02/01/20 19:37 DC 02/01/20 19:41 Haloperidol (Haldol) 10 mg STAT STAT IM 02/02/20 13:33 02/02/20 13:37 DC 02/02/20 13:46 Haloperidol (Haldol) 10 mg STAT STAT IM 02/02/20 16:52 02/02/20 16:55 DC 02/02/20 17:09 Haloperidol (Haldol) 10 mg STAT STAT PO 01/26/20 16:38 01/26/20 16:52 DC Levothyroxine Sodium (Synthroid) 100 mcg DAILY@06 PO 12/24/19 06:00 01/17/20 06:17 [place] Carbonate (Eskalith Oral Solution) 300 mg BID PO 12/23/19 09:00 12/28/19 09:41 DC 12/28/19 09:35 [place] Carbonate (Esk[place] Oral Solution) 450 mg BID PO 12/28/19 21:00 12/31/19 10:58 DC 12/31/19 08:37 [place] Carbonate ([place] Carbonate) 450 mg BID PO 12/31/19 21:00 02/03/20 10:22 Lorazepam (Ativan) 1 mg STAT STAT IM 01/24/20 23:45 01/24/20 23:47 DC 01/25/20 00:04 Lorazepam (Ativan) 1 mg STAT STAT IM 02/06/20 14:47 02/06/20 14:49 DC 02/06/20 14:54 Lorazepam (Ativan) 2 mg STAT STAT IM 01/23/20 01:38 01/23/20 01:40 DC 01/23/20 01:49 Lorazepam (Ativan) 2 mg STAT STAT IM 01/23/20 21:42 01/23/20 21:44 DC 01/23/20 21:56 Lorazepam (Ativan) 2 mg STAT STAT IM 01/26/20 16:38 01/26/20 16:42 DC 01/26/20 16:59 Lorazepam (Ativan) 2 mg STAT STAT IM 01/27/20 20:17 01/27/20 20:20 DC 01/27/20 20:31 Lorazepam (Ativan) 2 mg STAT STAT IM 01/31/20 20:14 01/31/20 20:16 DC 01/31/20 20:21 Lorazepam (Ativan) 2 mg STAT STAT IM 02/01/20 19:35 02/01/20 19:37 DC 02/01/20 19:41 Lorazepam (Ativan) 2 mg STAT STAT IM 02/02/20 13:33 02/02/20 13:37 DC 02/02/20 13:46 Lorazepam (Ativan) 2 mg STAT STAT IM 02/02/20 16:52 02/02/20 16:55 DC 02/02/20 17:09 Lorazepam (Ativan) 2 mg STAT STAT IM 02/05/20 16:29 02/05/20 16:34 DC 02/05/20 16:38 [place] Hydroxide (Milk Of Magnesia) 30 ml DAILYPRN PRN PO CONSTIPATION 12/23/19 01:00 Miscellaneous (Unresolved Clarification Entry) SEE LABEL COMMENTS DAILY XX 01/21/20 09:00 01/21/20 08:04 DC Miscellaneous (Unresolved Clarification Entry) SEE LABEL COMMENTS DAILY XX 01/30/20 09:00 01/30/20 13:01 DC Miscellaneous (Unresolved Clarification Entry) SEE LABEL COMMENTS DAILY XX 02/02/20 09:00 02/04/20 09:30 DC Trazodone HCl (Desyrel) 50 mg QHSP PRN PO INSOMNIA 12/23/19 01:00 02/08/20 01:00 Allergies Coded Allergies: Sulfa (Sulfonamide Antibiotics) (Verified Allergy, Severe, hives, 04/25/19) amoxicillin (Verified Allergy, Intermediate, rash, 04/25/19) azithromycin (Verified Allergy, Intermediate, rash, 04/25/19) levothyroxine (Verified Allergy, Unknown, 12/22/19) pt states it makes her collapse LYRIC REID DO Feb 14, 2020 09:31
[2020-02-14] MEDS ORDERED: diphenhydrAMINE 50MG/ML VIAL (J1200) IM ONE (20:15)
[2020-02-15] MEDS: LEVOTHYROXINE 100MCG TABLET (0.1MG) PO SCH (05:38)
[2020-02-15] MEDS: LITHIUM CARBONATE 150 MG CAP PO SCH ×2 (09:00→21:00)
[2020-02-15] MEDS: chlorproMAZINE 25 MG TABLET PO SCH ×3 (09:00→21:00)
[2020-02-15] MEDS: haloperidoL 5 MG TAB PO SCH ×2 (09:00→21:00)
[2020-02-15] MEDS ORDERED: diphenhydrAMINE 50MG/ML VIAL (J1200) IM STA (14:29)
[2020-02-15] MEDS ORDERED: diphenhydrAMINE 50MG/ML VIAL (J1200) IM ONE (21:00)
[2020-02-16] MEDS: LEVOTHYROXINE 100MCG TABLET (0.1MG) PO SCH (06:00)
[2020-02-16] MEDS: LITHIUM CARBONATE 150 MG CAP PO SCH ×2 (08:54→21:00)
[2020-02-16] MEDS: haloperidoL 5 MG TAB PO SCH ×2 (08:54→21:00)
[2020-02-16] MEDS: chlorproMAZINE 25 MG TABLET PO SCH ×3 (08:55→21:00)
--- NOTE | 2020-02-16 09:36 | MHIPNPDOC ---
[facility] Progress Note Progress Note DATE OF SERVICE: 02/16/20 HPI: Latrice is seen for recheck. Latrice notes that she is not Latrice and is in fact Ciarra Solorzano, and she believes that it is a case of mistaken identity. She also notes that she has been sleeping fine. 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 Objective Appearance: Grossly psychotic. Disheveled. Speech: Hyperverbal and nearly all incoherent in her speech. Cognition: Grossly intact. Insight: Limited insight. Assessment F25.0 Schizoaffective disorder, bipolar type Plan Continue patients current medications at this time, although she is generally non-compliant and reports that she is allergic to Haldol. She has done well on Haldol before and has become much less agitated. Continue one-to-one sitter at this time. Referral to [place] after retention hearing. 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 Vital Signs Vital Signs Date Time Temp Pulse Resp B/P (MAP) Pulse Ox O2 Delivery O2 Flow Rate FiO2 02/11/20 11:22 Room Air Current Medications Current Medications Medications (Trade) Dose Ordered Sig/Ruth Route PRN Reason Start Time Stop Time Status Last Admin Dose Admin Acetaminophen (Tylenol Tab) 650 mg Q6HP PRN PO HEADACHE or DISCOMFORT 12/23/19 01:00 02/03/20 14:04 Al Hydrox/Mg Hydrox/Simethicone (Mylanta) 30 ml Q4HP PRN PO HEARTBURN/INDIGESTION 12/23/19 01:00 Chlorpromazine HCl (Thorazine) 50 mg STAT STAT IM 02/01/20 21:01 02/01/20 21:03 DC 02/01/20 21:07 Chlorpromazine HCl (Thorazine) 50 mg STAT STAT IM 02/05/20 16:29 02/05/20 16:34 DC 02/05/20 16:38 Chlorpromazine HCl (Thorazine) 50 mg STAT STAT IM 02/06/20 14:47 02/06/20 14:49 DC 02/06/20 14:54 Chlorpromazine HCl (Thorazine) 100 mg Q6HP PRN PO AGITATION 12/28/19 14:00 12/28/19 14:00 DC Chlorpromazine HCl (Thorazine) 100 mg STAT STAT IM 12/29/19 13:02 12/29/19 13:04 DC 12/29/19 13:32 Chlorpromazine HCl (Thorazine) 100 mg STAT STAT IM 01/31/20 21:38 01/31/20 21:40 DC 01/31/20 21:42 Chlorpromazine HCl (Thorazine) 150 mg Q6HP PRN PO AGITATION/anxiety 12/28/19 14:00 01/04/20 13:34 DC 01/04/20 09:25 Chlorpromazine HCl (Thorazine) 150 mg STAT STAT IM 01/23/20 19:56 01/23/20 19:58 DC 01/23/20 19:59 Chlorpromazine HCl (Thorazine) 150 mg STAT STAT IM 01/27/20 22:16 01/27/20 22:17 DC 01/27/20 22:54 Chlorpromazine HCl (Thorazine) 150 mg TID PO 01/04/20 16:00 02/04/20 15:35 Clozapine (Clozaril) 12.5 mg QHS PO 01/06/20 21:00 01/12/20 09:29 DC 01/11/20 20:13 Clozapine (Clozaril) 25 mg BID PO 01/14/20 21:00 01/18/20 09:33 DC 01/16/20 21:17 Clozapine (Clozaril) 25 mg QHS PO 01/12/20 21:00 01/14/20 10:58 DC 01/13/20 22:43 Diphenhydramine HCl (Benadryl) 50 mg Q4HP PRN PO ANXIETY/AGITATION 12/23/19 15:00 Diphenhydramine HCl (Benadryl) 50 mg STAT STAT IM 12/22/19 21:28 12/22/19 21:30 DC 12/22/19 22:03 Diphenhydramine HCl (Benadryl) 50 mg STAT STAT IM 01/23/20 01:38 01/23/20 01:40 DC 01/23/20 01:49 Diphenhydramine HCl (Benadryl) 50 mg STAT STAT IM 01/23/20 19:56 01/23/20 19:58 DC 01/23/20 20:00 Diphenhydramine HCl (Benadryl) 50 mg STAT STAT IM 01/26/20 16:38 01/26/20 16:42 DC 01/26/20 16:59 Diphenhydramine HCl (Benadryl) 50 mg STAT STAT IM 01/27/20 20:17 01/27/20 20:20 DC 01/27/20 20:32 Diphenhydramine HCl (Benadryl) 50 mg STAT STAT IM 01/31/20 20:14 01/31/20 20:16 DC 01/31/20 20:21 Diphenhydramine HCl (Benadryl) 50 mg STAT STAT IM 02/02/20 13:33 02/02/20 13:37 DC 02/02/20 13:45 Diphenhydramine HCl (Benadryl) 50 mg STAT STAT IM 02/02/20 16:52 02/02/20 16:55 DC 02/02/20 17:09 Diphenhydramine HCl (Benadryl) 50 mg STAT STAT IM 02/15/20 14:29 02/15/20 14:30 DC 02/15/20 14:51 Docusate Sodium (Colace) 100 mg DAILY PO 01/08/20 09:00 02/07/20 08:59 DC 02/03/20 10:23 Fluphenazine HCl (Prolixin) 10 mg BID PO 12/23/19 09:00 12/28/19 09:42 DC Haloperidol (Haldol) 5 mg BID PO 01/18/20 09:00 02/03/20 21:00 Haloperidol (Haldol) 5 mg STAT STAT IM 02/05/20 14:41 02/05/20 14:42 DC 02/05/20 14:50 Haloperidol (Haldol) 10 mg STAT STAT IM 01/23/20 01:38 01/23/20 01:40 DC 01/23/20 01:49 Haloperidol (Haldol) 10 mg STAT STAT IM 01/23/20 21:42 01/23/20 21:44 DC 01/23/20 21:55 Haloperidol (Haldol) 10 mg STAT STAT IM 01/24/20 23:45 01/24/20 23:47 DC 01/25/20 00:04 Haloperidol (Haldol) 10 mg STAT STAT IM 01/25/20 02:22 01/25/20 02:24 DC 01/25/20 02:27 Haloperidol (Haldol) 10 mg STAT STAT IM 01/26/20 16:50 01/26/20 16:52 DC 01/26/20 16:58 Haloperidol (Haldol) 10 mg STAT STAT IM 01/27/20 20:17 01/27/20 20:20 DC 01/27/20 20:32 Haloperidol (Haldol) 10 mg STAT STAT IM 01/31/20 20:14 01/31/20 20:16 DC 01/31/20 20:21 Haloperidol (Haldol) 10 mg STAT STAT IM 02/01/20 19:35 02/01/20 19:37 DC 02/01/20 19:41 Haloperidol (Haldol) 10 mg STAT STAT IM 02/02/20 13:33 02/02/20 13:37 DC 02/02/20 13:46 Haloperidol (Haldol) 10 mg STAT STAT IM 02/02/20 16:52 02/02/20 16:55 DC 02/02/20 17:09 Haloperidol (Haldol) 10 mg STAT STAT PO 01/26/20 16:38 01/26/20 16:52 DC Levothyroxine Sodium (Synthroid) 100 mcg DAILY@06 PO 12/24/19 06:00 01/17/20 06:17 [place] Carbonate (Eskalith Oral Solution) 300 mg BID PO 12/23/19 09:00 12/28/19 09:41 DC 12/28/19 09:35 [place] Carbonate (Eskalith Oral Solution) 450 mg BID PO 12/28/19 21:00 12/31/19 10:58 DC 12/31/19 08:37 [place] Carbonate ([place] Carbonate) 450 mg BID PO 12/31/19 21:00 02/03/20 10:22 Lorazepam (Ativan) 1 mg STAT STAT IM 01/24/20 23:45 01/24/20 23:47 DC 01/25/20 00:04 Lorazepam (Ativan) 1 mg STAT STAT IM 02/06/20 14:47 02/06/20 14:49 DC 02/06/20 14:54 Lorazepam (Ativan) 2 mg STAT STAT IM 01/23/20 01:38 01/23/20 01:40 DC 01/23/20 01:49 Lorazepam (Ativan) 2 mg STAT STAT IM 01/23/20 21:42 01/23/20 21:44 DC 01/23/20 21:56 Lorazepam (Ativan) 2 mg STAT STAT IM 01/26/20 16:38 01/26/20 16:42 DC 01/26/20 16:59 Lorazepam (Ativan) 2 mg STAT STAT IM 01/27/20 20:17 01/27/20 20:20 DC 01/27/20 20:31 Lorazepam (Ativan) 2 mg STAT STAT IM 01/31/20 20:14 01/31/20 20:16 DC 01/31/20 20:21 Lorazepam (Ativan) 2 mg STAT STAT IM 02/01/20 19:35 02/01/20 19:37 DC 02/01/20 19:41 Lorazepam (Ativan) 2 mg STAT STAT IM 02/02/20 13:33 02/02/20 13:37 DC 02/02/20 13:46 Lorazepam (Ativan) 2 mg STAT STAT IM 02/02/20 16:52 02/02/20 16:55 DC 02/02/20 17:09 Lorazepam (Ativan) 2 mg STAT STAT IM 02/05/20 16:29 02/05/20 16:34 DC 02/05/20 16:38 Magnesium Hydroxide (Milk Of Magnesia) 30 ml DAILYPRN PRN PO CONSTIPATION 12/23/19 01:00 Miscellaneous (Unresolved Clarification Entry) SEE LABEL COMMENTS DAILY XX 01/21/20 09:00 01/21/20 08:04 DC Miscellaneous (Unresolved Clarification Entry) SEE LABEL COMMENTS DAILY XX 01/30/20 09:00 01/30/20 13:01 DC Miscellaneous (Unresolved Clarification Entry) SEE LABEL COMMENTS DAILY XX 02/02/20 09:00 02/04/20 09:30 DC Miscellaneous (Unresolved Clarification Entry) SEE LABEL COMMENTS DAILY XX 02/16/20 09:00 Trazodone HCl (Desyrel) 50 mg QHSP PRN PO INSOMNIA 12/23/19 01:00 02/08/20 01:00 Allergies Coded Allergies: Sulfa (Sulfonamide Antibiotics) (Verified Allergy, Severe, hives, 04/25/19) amoxicillin (Verified Allergy, Intermediate, rash, 04/25/19) azithromycin (Verified Allergy, Intermediate, rash, 04/25/19) levothyroxine (Verified Allergy, Unknown, 12/22/19) pt states it makes her collapse LYRIC REID DO Feb 16, 2020 09:36
[2020-02-16] MEDS ORDERED: BENZTROPINE MESYLATE 2MG/2ML VIAL IM ONE (21:00)
[2020-02-17] MEDS: LEVOTHYROXINE 100MCG TABLET (0.1MG) PO SCH (05:20)
[2020-02-17] MEDS: LITHIUM CARBONATE 150 MG CAP PO SCH ×2 (09:00→20:38)
[2020-02-17] MEDS: chlorproMAZINE 25 MG TABLET PO SCH ×3 (09:00→20:39)
[2020-02-17] MEDS: haloperidoL 5 MG TAB PO SCH ×2 (09:00→20:38)
--- NOTE | 2020-02-17 09:51 | MHIPNPDOC ---
[facility] Progress Note Progress Note DATE OF SERVICE: 02/17/20 Latrice is seen today, however, she doesn't engage and stays with sheets covering her face. She has had less episodes of agitation. Objective Behavior: Sleeps with covers covering her face. Does not engage. Assessment F25.0 Schizoaffective disorder, bipolar type Plan Continue Haldol. Core proceeding next week in order for retention and being sent to [place]. Possible treatment over objective. However, she did accept the long-acting Haldol that will take some time to resolve her symptoms. Vital Signs Vital Signs Date Time Temp Pulse Resp B/P (MAP) Pulse Ox O2 Delivery O2 Flow Rate FiO2 02/17/20 08:03 Room Air Current Medications Current Medications Medications (Trade) Dose Ordered Sig/Ruth Route PRN Reason Start Time Stop Time Status Last Admin Dose Admin Acetaminophen (Tylenol Tab) 650 mg Q6HP PRN PO HEADACHE or DISCOMFORT 12/23/19 01:00 02/03/20 14:04 Al Hydrox/Mg Hydrox/Simethicone (Mylanta) 30 ml Q4HP PRN PO HEARTBURN/INDIGESTION 12/23/19 01:00 Chlorpromazine HCl (Thorazine) 50 mg STAT STAT IM 02/01/20 21:01 02/01/20 21:03 DC 02/01/20 21:07 Chlorpromazine HCl (Thorazine) 50 mg STAT STAT IM 02/05/20 16:29 02/05/20 16:34 DC 02/05/20 16:38 Chlorpromazine HCl (Thorazine) 50 mg STAT STAT IM 02/06/20 14:47 02/06/20 14:49 DC 02/06/20 14:54 Chlorpromazine HCl (Thorazine) 100 mg Q6HP PRN PO AGITATION 12/28/19 14:00 12/28/19 14:00 DC Chlorpromazine HCl (Thorazine) 100 mg STAT STAT IM 12/29/19 13:02 12/29/19 13:04 DC 12/29/19 13:32 Chlorpromazine HCl (Thorazine) 100 mg STAT STAT IM 01/31/20 21:38 01/31/20 21:40 DC 01/31/20 21:42 Chlorpromazine HCl (Thorazine) 150 mg Q6HP PRN PO AGITATION/anxiety 12/28/19 14:00 01/04/20 13:34 DC 01/04/20 09:25 Chlorpromazine HCl (Thorazine) 150 mg STAT STAT IM 01/23/20 19:56 01/23/20 19:58 DC 01/23/20 19:59 Chlorpromazine HCl (Thorazine) 150 mg STAT STAT IM 01/27/20 22:16 01/27/20 22:17 DC 01/27/20 22:54 Chlorpromazine HCl (Thorazine) 150 mg TID PO 01/04/20 16:00 02/04/20 15:35 Clozapine (Clozaril) 12.5 mg QHS PO 01/06/20 21:00 01/12/20 09:29 DC 01/11/20 20:13 Clozapine (Clozaril) 25 mg BID PO 01/14/20 21:00 01/18/20 09:33 DC 01/16/20 21:17 Clozapine (Clozaril) 25 mg QHS PO 01/12/20 21:00 01/14/20 10:58 DC 01/13/20 22:43 Diphenhydramine HCl (Benadryl) 50 mg Q4HP PRN PO ANXIETY/AGITATION 12/23/19 15:00 Diphenhydramine HCl (Benadryl) 50 mg STAT STAT IM 12/22/19 21:28 12/22/19 21:30 DC 12/22/19 22:03 Diphenhydramine HCl (Benadryl) 50 mg STAT STAT IM 01/23/20 01:38 01/23/20 01:40 DC 01/23/20 01:49 Diphenhydramine HCl (Benadryl) 50 mg STAT STAT IM 01/23/20 19:56 01/23/20 19:58 DC 01/23/20 20:00 Diphenhydramine HCl (Benadryl) 50 mg STAT STAT IM 01/26/20 16:38 01/26/20 16:42 DC 01/26/20 16:59 Diphenhydramine HCl (Benadryl) 50 mg STAT STAT IM 01/27/20 20:17 01/27/20 20:20 DC 01/27/20 20:32 Diphenhydramine HCl (Benadryl) 50 mg STAT STAT IM 01/31/20 20:14 01/31/20 20:16 DC 01/31/20 20:21 Diphenhydramine HCl (Benadryl) 50 mg STAT STAT IM 02/02/20 13:33 02/02/20 13:37 DC 02/02/20 13:45 Diphenhydramine HCl (Benadryl) 50 mg STAT STAT IM 02/02/20 16:52 02/02/20 16:55 DC 02/02/20 17:09 Diphenhydramine HCl (Benadryl) 50 mg STAT STAT IM 02/15/20 14:29 02/15/20 14:30 DC 02/15/20 14:51 Docusate Sodium (Colace) 100 mg DAILY PO 01/08/20 09:00 02/07/20 08:59 DC 02/03/20 10:23 Fluphenazine HCl (Prolixin) 10 mg BID PO 12/23/19 09:00 12/28/19 09:42 DC Haloperidol (Haldol) 5 mg BID PO 01/18/20 09:00 02/03/20 21:00 Haloperidol (Haldol) 5 mg STAT STAT IM 02/05/20 14:41 02/05/20 14:42 DC 02/05/20 14:50 Haloperidol (Haldol) 10 mg STAT STAT IM 01/23/20 01:38 01/23/20 01:40 DC 01/23/20 01:49 Haloperidol (Haldol) 10 mg STAT STAT IM 01/23/20 21:42 01/23/20 21:44 DC 01/23/20 21:55 Haloperidol (Haldol) 10 mg STAT STAT IM 01/24/20 23:45 01/24/20 23:47 DC 01/25/20 00:04 Haloperidol (Haldol) 10 mg STAT STAT IM 01/25/20 02:22 01/25/20 02:24 DC 01/25/20 02:27 Haloperidol (Haldol) 10 mg STAT STAT IM 01/26/20 16:50 01/26/20 16:52 DC 01/26/20 16:58 Haloperidol (Haldol) 10 mg STAT STAT IM 01/27/20 20:17 01/27/20 20:20 DC 01/27/20 20:32 Haloperidol (Haldol) 10 mg STAT STAT IM 01/31/20 20:14 01/31/20 20:16 DC 01/31/20 20:21 Haloperidol (Haldol) 10 mg STAT STAT IM 02/01/20 19:35 02/01/20 19:37 DC 02/01/20 19:41 Haloperidol (Haldol) 10 mg STAT STAT IM 02/02/20 13:33 02/02/20 13:37 DC 02/02/20 13:46 Haloperidol (Haldol) 10 mg STAT STAT IM 02/02/20 16:52 02/02/20 16:55 DC 02/02/20 17:09 Haloperidol (Haldol) 10 mg STAT STAT PO 01/26/20 16:38 01/26/20 16:52 DC Levothyroxine Sodium (Synthroid) 100 mcg DAILY@06 PO 12/24/19 06:00 01/17/20 06:17 [place] Carbonate (Eskalith Oral Solution) 300 mg BID PO 12/23/19 09:00 12/28/19 09:41 DC 12/28/19 09:35 [place] Carbonate (Eskalith Oral Solution) 450 mg BID PO 12/28/19 21:00 12/31/19 10:58 DC 12/31/19 08:37 [place] Carbonate ([place] Carbonate) 450 mg BID PO 12/31/19 21:00 02/03/20 10:22 Lorazepam (Ativan) 1 mg STAT STAT IM 01/24/20 23:45 01/24/20 23:47 DC 01/25/20 00:04 Lorazepam (Ativan) 1 mg STAT STAT IM 02/06/20 14:47 02/06/20 14:49 DC 02/06/20 14:54 Lorazepam (Ativan) 2 mg STAT STAT IM 01/23/20 01:38 01/23/20 01:40 DC 01/23/20 01:49 Lorazepam (Ativan) 2 mg STAT STAT IM 01/23/20 21:42 01/23/20 21:44 DC 01/23/20 21:56 Lorazepam (Ativan) 2 mg STAT STAT IM 01/26/20 16:38 01/26/20 16:42 DC 01/26/20 16:59 Lorazepam (Ativan) 2 mg STAT STAT IM 01/27/20 20:17 01/27/20 20:20 DC 01/27/20 20:31 Lorazepam (Ativan) 2 mg STAT STAT IM 01/31/20 20:14 01/31/20 20:16 DC 01/31/20 20:21 Lorazepam (Ativan) 2 mg STAT STAT IM 02/01/20 19:35 02/01/20 19:37 DC 02/01/20 19:41 Lorazepam (Ativan) 2 mg STAT STAT IM 02/02/20 13:33 02/02/20 13:37 DC 02/02/20 13:46 Lorazepam (Ativan) 2 mg STAT STAT IM 02/02/20 16:52 02/02/20 16:55 DC 02/02/20 17:09 Lorazepam (Ativan) 2 mg STAT STAT IM 02/05/20 16:29 02/05/20 16:34 DC 02/05/20 16:38 Magnesium Hydroxide (Milk Of Magnesia) 30 ml DAILYPRN PRN PO CONSTIPATION 12/23/19 01:00 Miscellaneous (Unresolved Clarification Entry) SEE LABEL COMMENTS DAILY XX 01/21/20 09:00 01/21/20 08:04 DC Miscellaneous (Unresolved Clarification Entry) SEE LABEL COMMENTS DAILY XX 01/30/20 09:00 01/30/20 13:01 DC Miscellaneous (Unresolved Clarification Entry) SEE LABEL COMMENTS DAILY XX 02/02/20 09:00 02/04/20 09:30 DC Miscellaneous (Unresolved Clarification Entry) SEE LABEL COMMENTS DAILY XX 02/16/20 09:00 02/16/20 09:59 DC Trazodone HCl (Desyrel) 50 mg QHSP PRN PO INSOMNIA 12/23/19 01:00 02/08/20 01:00 Allergies Coded Allergies: Sulfa (Sulfonamide Antibiotics) (Verified Allergy, Severe, hives, 04/25/19) amoxicillin (Verified Allergy, Intermediate, rash, 04/25/19) azithromycin (Verified Allergy, Intermediate, rash, 04/25/19) levothyroxine (Verified Allergy, Unknown, 12/22/19) pt states it makes her collapse LYRIC REID DO Feb 17, 2020 09:51
[2020-02-17] MEDS ORDERED: BENZTROPINE MESYLATE 2MG/2ML VIAL IM ONE (21:00)
[2020-02-18] MEDS: LEVOTHYROXINE 100MCG TABLET (0.1MG) PO SCH (06:00)
[2020-02-18] MEDS: haloperidoL 5 MG TAB PO SCH ×2 (09:00→20:41)
[2020-02-18] MEDS: LITHIUM CARBONATE 150 MG CAP PO SCH ×2 (09:00→20:42)
[2020-02-18] MEDS: chlorproMAZINE 25 MG TABLET PO SCH ×3 (09:00→20:42)
[2020-02-18] MEDS ORDERED: BENZTROPINE MESYLATE 2MG/2ML VIAL IM ONE (20:15)
[2020-02-19] MEDS: LEVOTHYROXINE 100MCG TABLET (0.1MG) PO SCH (05:54)
[2020-02-19] MEDS: haloperidoL 5 MG TAB PO SCH ×2 (08:26→19:56)
[2020-02-19] MEDS: LITHIUM CARBONATE 150 MG CAP PO SCH ×2 (08:26→19:56)
[2020-02-19] MEDS: chlorproMAZINE 25 MG TABLET PO SCH ×3 (08:26→19:56)
[2020-02-19] MEDS ORDERED: diphenhydrAMINE 50MG CAP PO ONE (09:00)
[2020-02-19] MEDS ORDERED: diphenhydrAMINE 50MG/ML VIAL (J1200) IM ONE (20:15)
[2020-02-20] MEDS: LEVOTHYROXINE 100MCG TABLET (0.1MG) PO SCH (06:00)
[2020-02-20] MEDS: haloperidoL 5 MG TAB PO SCH ×2 (09:00→21:00)
[2020-02-20] MEDS: chlorproMAZINE 25 MG TABLET PO SCH ×3 (09:00→21:00)
[2020-02-20] MEDS: LITHIUM CARBONATE 150 MG CAP PO SCH ×2 (09:00→21:00)
--- NOTE | 2020-02-20 18:36 | MHIPNPDOC ---
[facility] Progress Note Progress Note DATE OF SERVICE: 02/18/20 HISTORY: 29 year old female with history of Schizoaffective disorder, medication non compliance, multiple admissions to [facility] and other [facility], aggre ssion, violence and psychosis. the patient has been refusing to engage in treatment to speak to staff although later she has been more cooperative. VITAL SIGNS: See below. NEW TEST RESULTS: See below CURRENT MEDICATIONS: See below. MENTAL STATUS EXAMINATION: Patient is a 29 year old female, who is alert, dressed in hospital clothes, walking in the hallways. Speech: Is not as slurred, not as rapid or pressured as it was before. Language skills are fair. Thought processes including: circumstantial, tangential, not coherent, illogical. Thought content: angry thoughts about being at the Unit. At a certain point she is demanding to be discharged because she says she is not a danger ot self or others, she doesn't know hy she is hospitalized because when she was brought to the Hospital, she was angry, only that. She denies SI/HI Abstract reasoning, and computation: Unable to assess, she doesn't remain long enough with me in the office, she turns around and keeps on walking the hallways, she doesn't engage in a conversation. Description of associations: mildly loose. Description of abnormal or psychotic thoughts: She has grandiose delusions and paranoid delusions. At times she seems to be responding to internal stimuli Judgment: Poor Insight: Poor. Orientation: oriented to persona and place but only partially to date and time Recent and remote memory: Poor. Attention span and concentration: unable to focus Fund of knowledge: unable to assess Mood: irritable Affect: congruent with mood. DIAGNOSES: 1. Schizoaffective disorder 2. cocaine use disorder ASSESSMENT: the patient is mildy improved, she is not as disorganized, not as psychotic and not as manic as she was about 1 week ago but she is still ill. She still needs to be stabilized but unfortunately her medication compliance is not good. She continues to refuse oral medications MANAGEMENT PLAN: Will continue current treatment plan TIME SPENT: 10 minutes. Vital Signs Vital Signs Date Time Temp Pulse Resp B/P (MAP) Pulse Ox O2 Delivery O2 Flow Rate FiO2 02/18/20 09:18 Room Air Current Medications Current Medications Medications (Trade) Dose Ordered Sig/Ruth Route PRN Reason Start Time Stop Time Status Last Admin Dose Admin Acetaminophen (Tylenol Tab) 650 mg Q6HP PRN PO HEADACHE or DISCOMFORT 12/23/19 01:00 02/03/20 14:04 Al Hydrox/Mg Hydrox/Simethicone (Mylanta) 30 ml Q4HP PRN PO HEARTBURN/INDIGESTION 12/23/19 01:00 Chlorpromazine HCl (Thorazine) 50 mg STAT STAT IM 02/01/20 21:01 02/01/20 21:03 DC 02/01/20 21:07 Chlorpromazine HCl (Thorazine) 50 mg STAT STAT IM 02/05/20 16:29 02/05/20 16:34 DC 02/05/20 16:38 Chlorpromazine HCl (Thorazine) 50 mg STAT STAT IM 02/06/20 14:47 02/06/20 14:49 DC 02/06/20 14:54 Chlorpromazine HCl (Thorazine) 100 mg Q6HP PRN PO AGITATION 12/28/19 14:00 12/28/19 14:00 DC Chlorpromazine HCl (Thorazine) 100 mg STAT STAT IM 12/29/19 13:02 12/29/19 13:04 DC 12/29/19 13:32 Chlorpromazine HCl (Thorazine) 100 mg STAT STAT IM 01/31/20 21:38 01/31/20 21:40 DC 01/31/20 21:42 Chlorpromazine HCl (Thorazine) 150 mg Q6HP PRN PO AGITATION/anxiety 12/28/19 14:00 01/04/20 13:34 DC 01/04/20 09:25 Chlorpromazine HCl (Thorazine) 150 mg STAT STAT IM 01/23/20 19:56 01/23/20 19:58 DC 01/23/20 19:59 Chlorpromazine HCl (Thorazine) 150 mg STAT STAT IM 01/27/20 22:16 01/27/20 22:17 DC 01/27/20 22:54 Chlorpromazine HCl (Thorazine) 150 mg TID PO 01/04/20 16:00 02/04/20 15:35 Clozapine (Clozaril) 12.5 mg QHS PO 01/06/20 21:00 01/12/20 09:29 DC 01/11/20 20:13 Clozapine (Clozaril) 25 mg BID PO 01/14/20 21:00 01/18/20 09:33 DC 01/16/20 21:17 Clozapine (Clozaril) 25 mg QHS PO 01/12/20 21:00 01/14/20 10:58 DC 01/13/20 22:43 Diphenhydramine HCl (Benadryl) 50 mg Q4HP PRN PO ANXIETY/AGITATION 12/23/19 15:00 Diphenhydramine HCl (Benadryl) 50 mg STAT STAT IM 12/22/19 21:28 12/22/19 21:30 DC 12/22/19 22:03 Diphenhydramine HCl (Benadryl) 50 mg STAT STAT IM 01/23/20 01:38 01/23/20 01:40 DC 01/23/20 01:49 Diphenhydramine HCl (Benadryl) 50 mg STAT STAT IM 01/23/20 19:56 01/23/20 19:58 DC 01/23/20 20:00 Diphenhydramine HCl (Benadryl) 50 mg STAT STAT IM 01/26/20 16:38 01/26/20 16:42 DC 01/26/20 16:59 Diphenhydramine HCl (Benadryl) 50 mg STAT STAT IM 01/27/20 20:17 01/27/20 20:20 DC 01/27/20 20:32 Diphenhydramine HCl (Benadryl) 50 mg STAT STAT IM 01/31/20 20:14 01/31/20 20:16 DC 01/31/20 20:21 Diphenhydramine HCl (Benadryl) 50 mg STAT STAT IM 02/02/20 13:33 02/02/20 13:37 DC 02/02/20 13:45 Diphenhydramine HCl (Benadryl) 50 mg STAT STAT IM 02/02/20 16:52 02/02/20 16:55 DC 02/02/20 17:09 Diphenhydramine HCl (Benadryl) 50 mg STAT STAT IM 02/15/20 14:29 02/15/20 14:30 DC 02/15/20 14:51 Docusate Sodium (Colace) 100 mg DAILY PO 01/08/20 09:00 02/07/20 08:59 DC 02/03/20 10:23 Fluphenazine HCl (Prolixin) 10 mg BID PO 12/23/19 09:00 12/28/19 09:42 DC Haloperidol (Haldol) 5 mg BID PO 01/18/20 09:00 02/03/20 21:00 Haloperidol (Haldol) 5 mg STAT STAT IM 02/05/20 14:41 02/05/20 14:42 DC 02/05/20 14:50 Haloperidol (Haldol) 10 mg STAT STAT IM 01/23/20 01:38 01/23/20 01:40 DC 01/23/20 01:49 Haloperidol (Haldol) 10 mg STAT STAT IM 01/23/20 21:42 01/23/20 21:44 DC 01/23/20 21:55 Haloperidol (Haldol) 10 mg STAT STAT IM 01/24/20 23:45 01/24/20 23:47 DC 01/25/20 00:04 Haloperidol (Haldol) 10 mg STAT STAT IM 01/25/20 02:22 01/25/20 02:24 DC 01/25/20 02:27 Haloperidol (Haldol) 10 mg STAT STAT IM 01/26/20 16:50 01/26/20 16:52 DC 01/26/20 16:58 Haloperidol (Haldol) 10 mg STAT STAT IM 01/27/20 20:17 01/27/20 20:20 DC 01/27/20 20:32 Haloperidol (Haldol) 10 mg STAT STAT IM 01/31/20 20:14 01/31/20 20:16 DC 01/31/20 20:21 Haloperidol (Haldol) 10 mg STAT STAT IM 02/01/20 19:35 02/01/20 19:37 DC 02/01/20 19:41 Haloperidol (Haldol) 10 mg STAT STAT IM 02/02/20 13:33 02/02/20 13:37 DC 02/02/20 13:46 Haloperidol (Haldol) 10 mg STAT STAT IM 02/02/20 16:52 02/02/20 16:55 DC 02/02/20 17:09 Haloperidol (Haldol) 10 mg STAT STAT PO 01/26/20 16:38 01/26/20 16:52 DC Levothyroxine Sodium (Synthroid) 100 mcg DAILY@06 PO 12/24/19 06:00 01/17/20 06:17 [place] Carbonate (Eskalith Oral Solution) 300 mg BID PO 12/23/19 09:00 12/28/19 09:41 DC 12/28/19 09:35 [place] Carbonate (Eskal[place] Oral Solution) 450 mg BID PO 12/28/19 21:00 12/31/19 10:58 DC 12/31/19 08:37 [place] Carbonate ([place] Carbonate) 450 mg BID PO 12/31/19 21:00 02/03/20 10:22 Lorazepam (Ativan) 1 mg STAT STAT IM 01/24/20 23:45 01/24/20 23:47 DC 01/25/20 00:04 Lorazepam (Ativan) 1 mg STAT STAT IM 02/06/20 14:47 02/06/20 14:49 DC 02/06/20 14:54 Lorazepam (Ativan) 2 mg STAT STAT IM 01/23/20 01:38 01/23/20 01:40 DC 01/23/20 01:49 Lorazepam (Ativan) 2 mg STAT STAT IM 01/23/20 21:42 01/23/20 21:44 DC 01/23/20 21:56 Lorazepam (Ativan) 2 mg STAT STAT IM 01/26/20 16:38 01/26/20 16:42 DC 01/26/20 16:59 Lorazepam (Ativan) 2 mg STAT STAT IM 01/27/20 20:17 01/27/20 20:20 DC 01/27/20 20:31 Lorazepam (Ativan) 2 mg STAT STAT IM 01/31/20 20:14 01/31/20 20:16 DC 01/31/20 20:21 Lorazepam (Ativan) 2 mg STAT STAT IM 02/01/20 19:35 02/01/20 19:37 DC 02/01/20 19:41 Lorazepam (Ativan) 2 mg STAT STAT IM 02/02/20 13:33 02/02/20 13:37 DC 02/02/20 13:46 Lorazepam (Ativan) 2 mg STAT STAT IM 02/02/20 16:52 02/02/20 16:55 DC 6/24/20 17:09 Lorazepam (Ativan) 2 mg STAT STAT IM 02/05/20 16:29 02/05/20 16:34 DC 02/05/20 16:38 Magnesium Hydroxide (Milk Of Magnesia) 30 ml DAILYPRN PRN PO CONSTIPATION 12/23/19 01:00 Miscellaneous (Unresolved Clarification Entry) SEE LABEL COMMENTS DAILY XX 01/21/20 09:00 01/21/20 08:04 DC Miscellaneous (Unresolved Clarification Entry) SEE LABEL COMMENTS DAILY XX 01/30/20 09:00 01/30/20 13:01 DC Miscellaneous (Unresolved Clarification Entry) SEE LABEL COMMENTS DAILY XX 02/02/20 09:00 02/04/20 09:30 DC Miscellaneous (Unresolved Clarification Entry) SEE LABEL COMMENTS DAILY XX 02/16/20 09:00 02/16/20 09:59 DC Trazodone HCl (Desyrel) 50 mg QHSP PRN PO INSOMNIA 12/23/19 01:00 02/08/20 01:00 Allergies Coded Allergies: Sulfa (Sulfonamide Antibiotics) (Verified Allergy, Severe, hives, 04/25/19) amoxicillin (Verified Allergy, Intermediate, rash, 04/25/19) azithromycin (Verified Allergy, Intermediate, rash, 04/25/19) levothyroxine (Verified Allergy, Unknown, 12/22/19) pt states it makes her collapse LOBITO AGUERO MD Feb 18, 2020 17:27
[2020-02-21] MEDS: LEVOTHYROXINE 100MCG TABLET (0.1MG) PO SCH (05:14)
[2020-02-21] MEDS: haloperidoL 5 MG TAB PO SCH ×2 (09:00→21:00)
[2020-02-21] MEDS: chlorproMAZINE 25 MG TABLET PO SCH ×3 (09:00→21:00)
[2020-02-21] MEDS: LITHIUM CARBONATE 150 MG CAP PO SCH ×2 (09:00→21:00)
--- NOTE | 2020-02-21 09:23 | MHIPNPDOC ---
[facility] Progress Note Progress Note DATE OF SERVICE: 02/21/20 HPI: Latrice is seen for follow up, she is distorted and incoherent, demanding various treatments non-sensically. Objective Behavior: highly distorted. Speech: tangential, pressured speech. Insight: poor. Assessment F25.0 Schizoaffective disorder, bipolar type Plan Continue pursuing retention today. Transfer to [place] or other long-term care facility. Her compliance at a later time as she is notably less agitated on occurring a one-to-one. It is likely that she could resolve in time to increase her insight and subsequently resume taking her medications. She does appear to be making some progress on the long-acting Haldol that she was convinced to take by a previous provider and will likely take some time. Vital Signs Vital Signs Date Time Temp Pulse Resp B/P (MAP) Pulse Ox O2 Delivery O2 Flow Rate FiO2 02/18/20 09:18 Room Air Current Medications Current Medications Medications (Trade) Dose Ordered Sig/Ruth Route PRN Reason Start Time Stop Time Status Last Admin Dose Admin Acetaminophen (Tylenol Tab) 650 mg Q6HP PRN PO HEADACHE or DISCOMFORT 12/23/19 01:00 02/03/20 14:04 Al Hydrox/Mg Hydrox/Simethicone (Mylanta) 30 ml Q4HP PRN PO HEARTBURN/INDIGESTION 12/23/19 01:00 Chlorpromazine HCl (Thorazine) 50 mg STAT STAT IM 02/01/20 21:01 02/01/20 21:03 DC 02/01/20 21:07 Chlorpromazine HCl (Thorazine) 50 mg STAT STAT IM 02/05/20 16:29 02/05/20 16:34 DC 02/05/20 16:38 Chlorpromazine HCl (Thorazine) 50 mg STAT STAT IM 02/06/20 14:47 02/06/20 14:49 DC 02/06/20 14:54 Chlorpromazine HCl (Thorazine) 100 mg Q6HP PRN PO AGITATION 12/28/19 14:00 12/28/19 14:00 DC Chlorpromazine HCl (Thorazine) 100 mg STAT STAT IM 12/29/19 13:02 12/29/19 13:04 DC 12/29/19 13:32 Chlorpromazine HCl (Thorazine) 100 mg STAT STAT IM 01/31/20 21:38 01/31/20 21:40 DC 01/31/20 21:42 Chlorpromazine HCl (Thorazine) 150 mg Q6HP PRN PO AGITATION/anxiety 12/28/19 14:00 01/04/20 13:34 DC 01/04/20 09:25 Chlorpromazine HCl (Thorazine) 150 mg STAT STAT IM 01/23/20 19:56 01/23/20 19:58 DC 01/23/20 19:59 Chlorpromazine HCl (Thorazine) 150 mg STAT STAT IM 01/27/20 22:16 01/27/20 22:17 DC 01/27/20 22:54 Chlorpromazine HCl (Thorazine) 150 mg TID PO 01/04/20 16:00 02/04/20 15:35 Clozapine (Clozaril) 12.5 mg QHS PO 01/06/20 21:00 01/12/20 09:29 DC 01/11/20 20:13 Clozapine (Clozaril) 25 mg BID PO 01/14/20 21:00 01/18/20 09:33 DC 01/16/20 21:17 Clozapine (Clozaril) 25 mg QHS PO 01/12/20 21:00 01/14/20 10:58 DC 01/13/20 22:43 Diphenhydramine HCl (Benadryl) 50 mg Q4HP PRN PO ANXIETY/AGITATION 12/23/19 15:00 Diphenhydramine HCl (Benadryl) 50 mg STAT STAT IM 12/22/19 21:28 12/22/19 21:30 DC 12/22/19 22:03 Diphenhydramine HCl (Benadryl) 50 mg STAT STAT IM 01/23/20 01:38 01/23/20 01:40 DC 01/23/20 01:49 Diphenhydramine HCl (Benadryl) 50 mg STAT STAT IM 01/23/20 19:56 01/23/20 19:58 DC 01/23/20 20:00 Diphenhydramine HCl (Benadryl) 50 mg STAT STAT IM 01/26/20 16:38 01/26/20 16:42 DC 01/26/20 16:59 Diphenhydramine HCl (Benadryl) 50 mg STAT STAT IM 01/27/20 20:17 01/27/20 20:20 DC 01/27/20 20:32 Diphenhydramine HCl (Benadryl) 50 mg STAT STAT IM 01/31/20 20:14 01/31/20 20:16 DC 01/31/20 20:21 Diphenhydramine HCl (Benadryl) 50 mg STAT STAT IM 02/02/20 13:33 02/02/20 13:37 DC 02/02/20 13:45 Diphenhydramine HCl (Benadryl) 50 mg STAT STAT IM 02/02/20 16:52 02/02/20 16:55 DC 02/02/20 17:09 Diphenhydramine HCl (Benadryl) 50 mg STAT STAT IM 02/15/20 14:29 02/15/20 14:30 DC 02/15/20 14:51 Docusate Sodium (Colace) 100 mg DAILY PO 01/08/20 09:00 02/07/20 08:59 DC 02/03/20 10:23 Fluphenazine HCl (Prolixin) 10 mg BID PO 12/23/19 09:00 12/28/19 09:42 DC Haloperidol (Haldol) 5 mg BID PO 01/18/20 09:00 02/19/20 19:56 Haloperidol (Haldol) 5 mg STAT STAT IM 02/05/20 14:41 02/05/20 14:42 DC 02/05/20 14:50 Haloperidol (Haldol) 10 mg STAT STAT IM 01/23/20 01:38 01/23/20 01:40 DC 01/23/20 01:49 Haloperidol (Haldol) 10 mg STAT STAT IM 01/23/20 21:42 01/23/20 21:44 DC 01/23/20 21:55 Haloperidol (Haldol) 10 mg STAT STAT IM 01/24/20 23:45 01/24/20 23:47 DC 01/25/20 00:04 Haloperidol (Haldol) 10 mg STAT STAT IM 01/25/20 02:22 01/25/20 02:24 DC 01/25/20 02:27 Haloperidol (Haldol) 10 mg STAT STAT IM 6/17/20 16:50 01/26/20 16:52 DC 01/26/20 16:58 Haloperidol (Haldol) 10 mg STAT STAT IM 01/27/20 20:17 01/27/20 20:20 DC 01/27/20 20:32 Haloperidol (Haldol) 10 mg STAT STAT IM 01/31/20 20:14 01/31/20 20:16 DC 01/31/20 20:21 Haloperidol (Haldol) 10 mg STAT STAT IM 02/01/20 19:35 02/01/20 19:37 DC 02/01/20 19:41 Haloperidol (Haldol) 10 mg STAT STAT IM 02/02/20 13:33 02/02/20 13:37 DC 02/02/20 13:46 Haloperidol (Haldol) 10 mg STAT STAT IM 02/02/20 16:52 02/02/20 16:55 DC 02/02/20 17:09 Haloperidol (Haldol) 10 mg STAT STAT PO 01/26/20 16:38 01/26/20 16:52 DC Levothyroxine Sodium (Synthroid) 100 mcg DAILY@06 PO 12/24/19 06:00 01/17/20 06:17 [place] Carbonate (Eskalith Oral Solution) 300 mg BID PO 12/23/19 09:00 12/28/19 09:41 DC 12/28/19 09:35 [place] Carbonate (Eskalith Oral Solution) 450 mg BID PO 12/28/19 21:00 12/31/19 10:58 DC 12/31/19 08:37 [place] Carbonate ([place] Carbonate) 450 mg BID PO 12/31/19 21:00 02/03/20 10:22 Lorazepam (Ativan) 1 mg STAT STAT IM 01/24/20 23:45 01/24/20 23:47 DC 01/25/20 00:04 Lorazepam (Ativan) 1 mg STAT STAT IM 02/06/20 14:47 02/06/20 14:49 DC 02/06/20 14:54 Lorazepam (Ativan) 2 mg STAT STAT IM 01/23/20 01:38 01/23/20 01:40 DC 01/23/20 01:49 Lorazepam (Ativan) 2 mg STAT STAT IM 01/23/20 21:42 01/23/20 21:44 DC 01/23/20 21:56 Lorazepam (Ativan) 2 mg STAT STAT IM 01/26/20 16:38 01/26/20 16:42 DC 01/26/20 16:59 Lorazepam (Ativan) 2 mg STAT STAT IM 01/27/20 20:17 01/27/20 20:20 DC 01/27/20 20:31 Lorazepam (Ativan) 2 mg STAT STAT IM 01/31/20 20:14 01/31/20 20:16 DC 01/31/20 20:21 Lorazepam (Ativan) 2 mg STAT STAT IM 02/01/20 19:35 02/01/20 19:37 DC 02/01/20 19:41 Lorazepam (Ativan) 2 mg STAT STAT IM 02/02/20 13:33 02/02/20 13:37 DC 02/02/20 13:46 Lorazepam (Ativan) 2 mg STAT STAT IM 02/02/20 16:52 02/02/20 16:55 DC 02/02/20 17:09 Lorazepam (Ativan) 2 mg STAT STAT IM 02/05/20 16:29 02/05/20 16:34 DC 02/05/20 16:38 Magnesium Hydroxide (Milk Of Magnesia) 30 ml DAILYPRN PRN PO CONSTIPATION 12/23/19 01:00 Miscellaneous (Unresolved Clarification Entry) SEE LABEL COMMENTS DAILY XX 01/21/20 09:00 01/21/20 08:04 DC Miscellaneous (Unresolved Clarification Entry) SEE LABEL COMMENTS DAILY XX 01/30/20 09:00 01/30/20 13:01 DC Miscellaneous (Unresolved Clarification Entry) SEE LABEL COMMENTS DAILY XX 02/02/20 09:00 02/04/20 09:30 DC Miscellaneous (Unresolved Clarification Entry) SEE LABEL COMMENTS DAILY XX 02/19/20 09:00 02/20/20 13:13 DC Miscellaneous (Unresolved Clarification Entry) SEE LABEL COMMENTS DAILY XX 02/16/20 09:00 02/16/20 09:59 DC Trazodone HCl (Desyrel) 50 mg QHSP PRN PO INSOMNIA 12/23/19 01:00 02/08/20 01:00 Allergies Coded Allergies: Sulfa (Sulfonamide Antibiotics) (Verified Allergy, Severe, hives, 04/25/19) amoxicillin (Verified Allergy, Intermediate, rash, 04/25/19) azithromycin (Verified Allergy, Intermediate, rash, 04/25/19) levothyroxine (Verified Allergy, Unknown, 12/22/19) pt states it makes her collapse LYRIC REID DO Feb 21, 2020 09:23
[2020-02-22] MEDS: LEVOTHYROXINE 100MCG TABLET (0.1MG) PO SCH (06:00)
--- NOTE | 2020-02-22 08:22 | MHIPNPDOC ---
[facility] Progress Note Progress Note DATE OF SERVICE: 02/22/20 HPI: Patient did not awaken for interview. Objective Behavior: Patient remains beneath her bed sheets. In no acute distress. Patient did not respond to calls to meet. Assessment F25.0 Schizoaffective disorder, bipolar type Plan Continue medications at this time. Refer to [facility]. Extension has been granted for the next six months. Patient is compliant with her medications as she is taking the long-acting Haldol [place]. Generally, she does not take other oral medications. She is fixated on injections but is compliant enough to not make the argument for treatment over objection at this time. Vital Signs Vital Signs Date Time Temp Pulse Resp B/P (MAP) Pulse Ox O2 Delivery O2 Flow Rate FiO2 02/18/20 09:18 Room Air Current Medications Current Medications Medications (Trade) Dose Ordered Sig/Ruth Route PRN Reason Start Time Stop Time Status Last Admin Dose Admin Acetaminophen (Tylenol Tab) 650 mg Q6HP PRN PO HEADACHE or DISCOMFORT 12/23/19 01:00 02/03/20 14:04 Al Hydrox/Mg Hydrox/Simethicone (Mylanta) 30 ml Q4HP PRN PO HEARTBURN/INDIGESTION 12/23/19 01:00 Chlorpromazine HCl (Thorazine) 50 mg STAT STAT IM 02/01/20 21:01 02/01/20 21:03 DC 02/01/20 21:07 Chlorpromazine HCl (Thorazine) 50 mg STAT STAT IM 02/05/20 16:29 02/05/20 16:34 DC 02/05/20 16:38 Chlorpromazine HCl (Thorazine) 50 mg STAT STAT IM 02/06/20 14:47 02/06/20 14:49 DC 02/06/20 14:54 Chlorpromazine HCl (Thorazine) 100 mg Q6HP PRN PO AGITATION 12/28/19 14:00 12/28/19 14:00 DC Chlorpromazine HCl (Thorazine) 100 mg STAT STAT IM 12/29/19 13:02 12/29/19 13:04 DC 12/29/19 13:32 Chlorpromazine HCl (Thorazine) 100 mg STAT STAT IM 01/31/20 21:38 01/31/20 21:40 DC 01/31/20 21:42 Chlorpromazine HCl (Thorazine) 150 mg Q6HP PRN PO AGITATION/anxiety 12/28/19 14:00 01/04/20 13:34 DC 01/04/20 09:25 Chlorpromazine HCl (Thorazine) 150 mg STAT STAT IM 01/23/20 19:56 01/23/20 19:58 DC 01/23/20 19:59 Chlorpromazine HCl (Thorazine) 150 mg STAT STAT IM 01/27/20 22:16 01/27/20 22:17 DC 01/27/20 22:54 Chlorpromazine HCl (Thorazine) 150 mg TID PO 01/04/20 16:00 02/04/20 15:35 Clozapine (Clozaril) 12.5 mg QHS PO 01/06/20 21:00 01/12/20 09:29 DC 01/11/20 20:13 Clozapine (Clozaril) 25 mg BID PO 01/14/20 21:00 01/18/20 09:33 DC 01/16/20 21:17 Clozapine (Clozaril) 25 mg QHS PO 01/12/20 21:00 01/14/20 10:58 DC 01/13/20 22:43 Diphenhydramine HCl (Benadryl) 50 mg Q4HP PRN PO ANXIETY/AGITATION 12/23/19 15:00 Diphenhydramine HCl (Benadryl) 50 mg STAT STAT IM 12/22/19 21:28 12/22/19 21:30 DC 12/22/19 22:03 Diphenhydramine HCl (Benadryl) 50 mg STAT STAT IM 01/23/20 01:38 01/23/20 01:40 DC 01/23/20 01:49 Diphenhydramine HCl (Benadryl) 50 mg STAT STAT IM 01/23/20 19:56 01/23/20 19:58 DC 01/23/20 20:00 Diphenhydramine HCl (Benadryl) 50 mg STAT STAT IM 01/26/20 16:38 01/26/20 16:42 DC 01/26/20 16:59 Diphenhydramine HCl (Benadryl) 50 mg STAT STAT IM 01/27/20 20:17 01/27/20 20:20 DC 01/27/20 20:32 Diphenhydramine HCl (Benadryl) 50 mg STAT STAT IM 01/31/20 20:14 01/31/20 20:16 DC 01/31/20 20:21 Diphenhydramine HCl (Benadryl) 50 mg STAT STAT IM 02/02/20 13:33 02/02/20 13:37 DC 02/02/20 13:45 Diphenhydramine HCl (Benadryl) 50 mg STAT STAT IM 02/02/20 16:52 02/02/20 16:55 DC 02/02/20 17:09 Diphenhydramine HCl (Benadryl) 50 mg STAT STAT IM 02/15/20 14:29 02/15/20 14:30 DC 02/15/20 14:51 Docusate Sodium (Colace) 100 mg DAILY PO 01/08/20 09:00 02/07/20 08:59 DC 02/03/20 10:23 Fluphenazine HCl (Prolixin) 10 mg BID PO 12/23/19 09:00 12/28/19 09:42 DC Haloperidol (Haldol) 5 mg BID PO 01/18/20 09:00 02/19/20 19:56 Haloperidol (Haldol) 5 mg STAT STAT IM 02/05/20 14:41 02/05/20 14:42 DC 02/05/20 14:50 Haloperidol (Haldol) 10 mg STAT STAT IM 01/23/20 01:38 01/23/20 01:40 DC 01/23/20 01:49 Haloperidol (Haldol) 10 mg STAT STAT IM 01/23/20 21:42 01/23/20 21:44 DC 01/23/20 21:55 Haloperidol (Haldol) 10 mg STAT STAT IM 01/24/20 23:45 01/24/20 23:47 DC 01/25/20 00:04 Haloperidol (Haldol) 10 mg STAT STAT IM 01/25/20 02:22 01/25/20 02:24 DC 01/25/20 02:27 Haloperidol (Haldol) 10 mg STAT STAT IM 01/26/20 16:50 01/26/20 16:52 DC 01/26/20 16:58 Haloperidol (Haldol) 10 mg STAT STAT IM 01/27/20 20:17 01/27/20 20:20 DC 01/27/20 20:32 Haloperidol (Haldol) 10 mg STAT STAT IM 01/31/20 20:14 01/31/20 20:16 DC 01/31/20 20:21 Haloperidol (Haldol) 10 mg STAT STAT IM 02/01/20 19:35 02/01/20 19:37 DC 02/01/20 19:41 Haloperidol (Haldol) 10 mg STAT STAT IM 02/02/20 13:33 02/02/20 13:37 DC 02/02/20 13:46 Haloperidol (Haldol) 10 mg STAT STAT IM 02/02/20 16:52 02/02/20 16:55 DC 02/02/20 17:09 Haloperidol (Haldol) 10 mg STAT STAT PO 01/26/20 16:38 01/26/20 16:52 DC Levothyroxine Sodium (Synthroid) 100 mcg DAILY@06 PO 12/24/19 06:00 01/17/20 06:17 [place] Carbonate (Eskalith Oral Solution) 300 mg BID PO 12/23/19 09:00 12/28/19 09:41 DC 12/28/19 09:35 [place] Carbonate (Eskalith Oral Solution) 450 mg BID PO 12/28/19 21:00 12/31/19 10:58 DC 12/31/19 08:37 [place] Carbonate ([place] Carbonate) 450 mg BID PO 12/31/19 21:00 02/03/20 10:22 Lorazepam (Ativan) 1 mg STAT STAT IM 01/24/20 23:45 01/24/20 23:47 DC 01/25/20 00:04 Lorazepam (Ativan) 1 mg STAT STAT IM 02/06/20 14:47 02/06/20 14:49 DC 02/06/20 14:54 Lorazepam (Ativan) 2 mg STAT STAT IM 01/23/20 01:38 01/23/20 01:40 DC 01/23/20 01:49 Lorazepam (Ativan) 2 mg STAT STAT IM 01/23/20 21:42 01/23/20 21:44 DC 01/23/20 21:56 Lorazepam (Ativan) 2 mg STAT STAT IM 01/26/20 16:38 01/26/20 16:42 DC 01/26/20 16:59 Lorazepam (Ativan) 2 mg STAT STAT IM 01/27/20 20:17 01/27/20 20:20 DC 01/27/20 20:31 Lorazepam (Ativan) 2 mg STAT STAT IM 01/31/20 20:14 01/31/20 20:16 DC 01/31/20 20:21 Lorazepam (Ativan) 2 mg STAT STAT IM 02/01/20 19:35 02/01/20 19:37 DC 02/01/20 19:41 Lorazepam (Ativan) 2 mg STAT STAT IM 02/02/20 13:33 02/02/20 13:37 DC 02/02/20 13:46 Lorazepam (Ativan) 2 mg STAT STAT IM 02/02/20 16:52 02/02/20 16:55 DC 02/02/20 17:09 Lorazepam (Ativan) 2 mg STAT STAT IM 02/05/20 16:29 02/05/20 16:34 DC 02/05/20 16:38 Magnesium Hydroxide (Milk Of Magnesia) 30 ml DAILYPRN PRN PO CONSTIPATION 12/23/19 01:00 Miscellaneous (Unresolved Clarification Entry) SEE LABEL COMMENTS DAILY XX 01/21/20 09:00 01/21/20 08:04 DC Miscellaneous (Unresolved Clarification Entry) SEE LABEL COMMENTS DAILY XX 01/30/20 09:00 01/30/20 13:01 DC Miscellaneous (Unresolved Clarification Entry) SEE LABEL COMMENTS DAILY XX 02/02/20 09:00 02/04/20 09:30 DC Miscellaneous (Unresolved Clarification Entry) SEE LABEL COMMENTS DAILY XX 02/19/20 09:00 02/20/20 13:13 DC Miscellaneous (Unresolved Clarification Entry) SEE LABEL COMMENTS DAILY XX 02/16/20 09:00 02/16/20 09:59 DC Trazodone HCl (Desyrel) 50 mg QHSP PRN PO INSOMNIA 12/23/19 01:00 02/08/20 01:00 Allergies Coded Allergies: Sulfa (Sulfonamide Antibiotics) (Verified Allergy, Severe, hives, 04/25/19) amoxicillin (Verified Allergy, Intermediate, rash, 04/25/19) azithromycin (Verified Allergy, Intermediate, rash, 04/25/19) levothyroxine (Verified Allergy, Unknown, 12/22/19) pt states it makes her collapse LYRIC REID DO Feb 22, 2020 08:22
[2020-02-22] MEDS: chlorproMAZINE 25 MG TABLET PO SCH ×3 (09:00→21:00)
[2020-02-22] MEDS: haloperidoL 5 MG TAB PO SCH ×2 (09:00→21:00)
[2020-02-22] MEDS: LITHIUM CARBONATE 150 MG CAP PO SCH ×2 (09:00→21:00)
[2020-02-23] MEDS: LEVOTHYROXINE 100MCG TABLET (0.1MG) PO SCH (05:19)
[2020-02-23] MEDS: chlorproMAZINE 25 MG TABLET PO SCH ×3 (08:58→20:27)
[2020-02-23] MEDS: haloperidoL 5 MG TAB PO SCH ×2 (08:58→20:27)
[2020-02-23] MEDS: LITHIUM CARBONATE 150 MG CAP PO SCH ×2 (08:58→20:27)
--- NOTE | 2020-02-23 10:29 | MHIPNPDOC ---
[facility] Progress Note Progress Note DATE OF SERVICE: 02/23/20 Latrice presents today for concerns regarding her schizoaffective disorder, bipolar type. She reports that she could not sleep well last night because she did not get a Benadryl shot for her seizures. Objective Speech: Hyperverbal. Thought Form: Non-linear. Perception: Psychotic. Judgement: Poor judgment. Insight: Poor insight. Assessment F25.0 Schizoaffective disorder, bipolar type Plan Continue to offer medications. Avoid injectable Benadryl as she overuses this and will likely lead to infections and other complications. Continue to pursue transfer to [place]. Vital Signs Vital Signs Date Time Temp Pulse Resp B/P (MAP) Pulse Ox O2 Delivery O2 Flow Rate FiO2 02/18/20 09:18 Room Air Current Medications Current Medications Medications (Trade) Dose Ordered Sig/Ruth Route PRN Reason Start Time Stop Time Status Last Admin Dose Admin Acetaminophen (Tylenol Tab) 650 mg Q6HP PRN PO HEADACHE or DISCOMFORT 12/23/19 01:00 02/03/20 14:04 Al Hydrox/Mg Hydrox/Simethicone (Mylanta) 30 ml Q4HP PRN PO HEARTBURN/INDIGESTION 12/23/19 01:00 Chlorpromazine HCl (Thorazine) 50 mg STAT STAT IM 02/01/20 21:01 02/01/20 21:03 DC 02/01/20 21:07 Chlorpromazine HCl (Thorazine) 50 mg STAT STAT IM 02/05/20 16:29 02/05/20 16:34 DC 02/05/20 16:38 Chlorpromazine HCl (Thorazine) 50 mg STAT STAT IM 02/06/20 14:47 02/06/20 14:49 DC 02/06/20 14:54 Chlorpromazine HCl (Thorazine) 100 mg Q6HP PRN PO AGITATION 12/28/19 14:00 12/28/19 14:00 DC Chlorpromazine HCl (Thorazine) 100 mg STAT STAT IM 12/29/19 13:02 12/29/19 13:04 DC 12/29/19 13:32 Chlorpromazine HCl (Thorazine) 100 mg STAT STAT IM 01/31/20 21:38 01/31/20 21:40 DC 01/31/20 21:42 Chlorpromazine HCl (Thorazine) 150 mg Q6HP PRN PO AGITATION/anxiety 12/28/19 14:00 01/04/20 13:34 DC 01/04/20 09:25 Chlorpromazine HCl (Thorazine) 150 mg STAT STAT IM 01/23/20 19:56 01/23/20 19:58 DC 01/23/20 19:59 Chlorpromazine HCl (Thorazine) 150 mg STAT STAT IM 01/27/20 22:16 01/27/20 22:17 DC 01/27/20 22:54 Chlorpromazine HCl (Thorazine) 150 mg TID PO 01/04/20 16:00 02/04/20 15:35 Clozapine (Clozaril) 12.5 mg QHS PO 01/06/20 21:00 01/12/20 09:29 DC 01/11/20 20:13 Clozapine (Clozaril) 25 mg BID PO 01/14/20 21:00 01/18/20 09:33 DC 01/16/20 21:17 Clozapine (Clozaril) 25 mg QHS PO 01/12/20 21:00 01/14/20 10:58 DC 01/13/20 22:43 Diphenhydramine HCl (Benadryl) 50 mg Q4HP PRN PO ANXIETY/AGITATION 12/23/19 15:00 Diphenhydramine HCl (Benadryl) 50 mg STAT STAT IM 12/22/19 21:28 12/22/19 21:30 DC 12/22/19 22:03 Diphenhydramine HCl (Benadryl) 50 mg STAT STAT IM 01/23/20 01:38 01/23/20 01:40 DC 01/23/20 01:49 Diphenhydramine HCl (Benadryl) 50 mg STAT STAT IM 01/23/20 19:56 01/23/20 19:58 DC 01/23/20 20:00 Diphenhydramine HCl (Benadryl) 50 mg STAT STAT IM 01/26/20 16:38 01/26/20 16:42 DC 01/26/20 16:59 Diphenhydramine HCl (Benadryl) 50 mg STAT STAT IM 01/27/20 20:17 01/27/20 20:20 DC 01/27/20 20:32 Diphenhydramine HCl (Benadryl) 50 mg STAT STAT IM 01/31/20 20:14 01/31/20 20:16 DC 01/31/20 20:21 Diphenhydramine HCl (Benadryl) 50 mg STAT STAT IM 02/02/20 13:33 02/02/20 13:37 DC 02/02/20 13:45 Diphenhydramine HCl (Benadryl) 50 mg STAT STAT IM 02/02/20 16:52 02/02/20 16:55 DC 02/02/20 17:09 Diphenhydramine HCl (Benadryl) 50 mg STAT STAT IM 02/15/20 14:29 02/15/20 14:30 DC 02/15/20 14:51 Docusate Sodium (Colace) 100 mg DAILY PO 01/08/20 09:00 02/07/20 08:59 DC 02/03/20 10:23 Fluphenazine HCl (Prolixin) 10 mg BID PO 12/23/19 09:00 12/28/19 09:42 DC Haloperidol (Haldol) 5 mg BID PO 01/18/20 09:00 02/19/20 19:56 Haloperidol (Haldol) 5 mg STAT STAT IM 02/05/20 14:41 02/05/20 14:42 DC 02/05/20 14:50 Haloperidol (Haldol) 10 mg STAT STAT IM 01/23/20 01:38 01/23/20 01:40 DC 01/23/20 01:49 Haloperidol (Haldol) 10 mg STAT STAT IM 01/23/20 21:42 01/23/20 21:44 DC 01/23/20 21:55 Haloperidol (Haldol) 10 mg STAT STAT IM 01/24/20 23:45 01/24/20 23:47 DC 01/25/20 00:04 Haloperidol (Haldol) 10 mg STAT STAT IM 01/25/20 02:22 01/25/20 02:24 DC 01/25/20 02:27 Haloperidol (Haldol) 10 mg STAT STAT IM 01/26/20 16:50 01/26/20 16:52 DC 01/26/20 16:58 Haloperidol (Haldol) 10 mg STAT STAT IM 01/27/20 20:17 01/27/20 20:20 DC 01/27/20 20:32 Haloperidol (Haldol) 10 mg STAT STAT IM 01/31/20 20:14 01/31/20 20:16 DC 01/31/20 20:21 Haloperidol (Haldol) 10 mg STAT STAT IM 02/01/20 19:35 02/01/20 19:37 DC 02/01/20 19:41 Haloperidol (Haldol) 10 mg STAT STAT IM 02/02/20 13:33 02/02/20 13:37 DC 02/02/20 13:46 Haloperidol (Haldol) 10 mg STAT STAT IM 02/02/20 16:52 02/02/20 16:55 DC 02/02/20 17:09 Haloperidol (Haldol) 10 mg STAT STAT PO 01/26/20 16:38 01/26/20 16:52 DC Levothyroxine Sodium (Synthroid) 100 mcg DAILY@06 PO 12/24/19 06:00 01/17/20 06:17 [place] Carbonate (Eskalith Oral Solution) 300 mg BID PO 12/23/19 09:00 12/28/19 09:41 DC 12/28/19 09:35 [place] Carbonate (Eskalith Oral Solution) 450 mg BID PO 12/28/19 21:00 12/31/19 10:58 DC 12/31/19 08:37 [place] Carbonate ([place] Carbonate) 450 mg BID PO 12/31/19 21:00 02/03/20 10:22 Lorazepam (Ativan) 1 mg STAT STAT IM 01/24/20 23:45 01/24/20 23:47 DC 01/25/20 00:04 Lorazepam (Ativan) 1 mg STAT STAT IM 02/06/20 14:47 02/06/20 14:49 DC 02/06/20 14:54 Lorazepam (Ativan) 2 mg STAT STAT IM 01/23/20 01:38 01/23/20 01:40 DC 01/23/20 01:49 Lorazepam (Ativan) 2 mg STAT STAT IM 01/23/20 21:42 01/23/20 21:44 DC 01/23/20 21:56 Lorazepam (Ativan) 2 mg STAT STAT IM 01/26/20 16:38 01/26/20 16:42 DC 01/26/20 16:59 Lorazepam (Ativan) 2 mg STAT STAT IM 01/27/20 20:17 01/27/20 20:20 DC 01/27/20 20:31 Lorazepam (Ativan) 2 mg STAT STAT IM 01/31/20 20:14 01/31/20 20:16 DC 01/31/20 20:21 Lorazepam (Ativan) 2 mg STAT STAT IM 02/01/20 19:35 02/01/20 19:37 DC 02/01/20 19:41 Lorazepam (Ativan) 2 mg STAT STAT IM 02/02/20 13:33 02/02/20 13:37 DC 02/02/20 13:46 Lorazepam (Ativan) 2 mg STAT STAT IM 02/02/20 16:52 02/02/20 16:55 DC 02/02/20 17:09 Lorazepam (Ativan) 2 mg STAT STAT IM 02/05/20 16:29 02/05/20 16:34 DC 02/05/20 16:38 Magnesium Hydroxide (Milk Of Magnesia) 30 ml DAILYPRN PRN PO CONSTIPATION 12/23/19 01:00 Miscellaneous (Unresolved Clarification Entry) SEE LABEL COMMENTS DAILY XX 01/21/20 09:00 01/21/20 08:04 DC Miscellaneous (Unresolved Clarification Entry) SEE LABEL COMMENTS DAILY XX 01/30/20 09:00 01/30/20 13:01 DC Miscellaneous (Unresolved Clarification Entry) SEE LABEL COMMENTS DAILY XX 02/02/20 09:00 02/04/20 09:30 DC Miscellaneous (Unresolved Clarification Entry) SEE LABEL COMMENTS DAILY XX 02/19/20 09:00 02/20/20 13:13 DC Miscellaneous (Unresolved Clarification Entry) SEE LABEL COMMENTS DAILY XX 02/16/20 09:00 02/16/20 09:59 DC Trazodone HCl (Desyrel) 50 mg QHSP PRN PO INSOMNIA 12/23/19 01:00 02/08/20 01:00 Allergies Coded Allergies: Sulfa (Sulfonamide Antibiotics) (Verified Allergy, Severe, hives, 04/25/19) amoxicillin (Verified Allergy, Intermediate, rash, 04/25/19) azithromycin (Verified Allergy, Intermediate, rash, 04/25/19) levothyroxine (Verified Allergy, Unknown, 12/22/19) pt states it makes her collapse LYRIC REID DO Feb 23, 2020 10:29
[2020-02-23] MEDS ORDERED: diphenhydrAMINE 50MG/ML VIAL (J1200) IM ONE (18:30)
[2020-02-24] MEDS: LEVOTHYROXINE 100MCG TABLET (0.1MG) PO SCH (06:00)
--- NOTE | 2020-02-24 07:43 | MHIPNPDOC ---
[facility] Progress Note Progress Note DATE OF SERVICE: 02/24/20 Tamara presents today for a follow-up visit. She reports she doesnt feel depressed anymore and denies having suicidal tendencies. MEDICATIONS: Tamara states the Ambien helped her go to sleep. Objective Appearance: Well nourished. Well groomed. Behavior: Engaged. Cooperative with good eye contact. Pleasant. Affect: Appropriate to context. Full range. Mood: Generally good. Euthymic. Appropriately reactive. Speech: Normal rate. Normal volume. Motor: No gross motor abnormalities. Cognition: Alert, Attentive, and Oriented to person, place, time. Memory: No gross abnormalities of short or nursing home memory noted during interview. No formal testing. Thought Form: Linear and goal directed. Thought Content: No evidence of delusions. No evidence of aggressive or homicidal ideation. No thoughts of self harm. No evidence of suicidal ideation. Perception: No perceptual abnormalities noted. Judgement: intact as evidenced by decision making in the recent past. Insight: good insight into symptoms and treatment options. Assessment F33.9 Major depressive disorder, recurrent, unspecified F15.20 Other stimulant dependence, uncomplicated Plan Observe overnight. Continue medications. Discharged tomorrow if continues to show improvement. Vital Signs Vital Signs Date Time Temp Pulse Resp B/P (MAP) Pulse Ox O2 Delivery O2 Flow Rate FiO2 02/18/20 09:18 Room Air Current Medications Current Medications Medications (Trade) Dose Ordered Sig/Ruth Route PRN Reason Start Time Stop Time Status Last Admin Dose Admin Acetaminophen (Tylenol Tab) 650 mg Q6HP PRN PO HEADACHE or DISCOMFORT 12/23/19 01:00 02/03/20 14:04 Al Hydrox/Mg Hydrox/Simethicone (Mylanta) 30 ml Q4HP PRN PO HEARTBURN/INDIGESTION 12/23/19 01:00 Chlorpromazine HCl (Thorazine) 50 mg STAT STAT IM 02/01/20 21:01 02/01/20 21:03 DC 02/01/20 21:07 Chlorpromazine HCl (Thorazine) 50 mg STAT STAT IM 02/05/20 16:29 02/05/20 16:34 DC 02/05/20 16:38 Chlorpromazine HCl (Thorazine) 50 mg STAT STAT IM 02/06/20 14:47 02/06/20 14:49 DC 02/06/20 14:54 Chlorpromazine HCl (Thorazine) 100 mg Q6HP PRN PO AGITATION 12/28/19 14:00 12/28/19 14:00 DC Chlorpromazine HCl (Thorazine) 100 mg STAT STAT IM 12/29/19 13:02 12/29/19 13:04 DC 12/29/19 13:32 Chlorpromazine HCl (Thorazine) 100 mg STAT STAT IM 01/31/20 21:38 01/31/20 21:40 DC 01/31/20 21:42 Chlorpromazine HCl (Thorazine) 150 mg Q6HP PRN PO AGITATION/anxiety 12/28/19 14:00 01/04/20 13:34 DC 01/04/20 09:25 Chlorpromazine HCl (Thorazine) 150 mg STAT STAT IM 01/23/20 19:56 01/23/20 19:58 DC 01/23/20 19:59 Chlorpromazine HCl (Thorazine) 150 mg STAT STAT IM 01/27/20 22:16 01/27/20 22:17 DC 01/27/20 22:54 Chlorpromazine HCl (Thorazine) 150 mg TID PO 01/04/20 16:00 02/04/20 15:35 Clozapine (Clozaril) 12.5 mg QHS PO 01/06/20 21:00 01/12/20 09:29 DC 01/11/20 20:13 Clozapine (Clozaril) 25 mg BID PO 01/14/20 21:00 01/18/20 09:33 DC 01/16/20 21:17 Clozapine (Clozaril) 25 mg QHS PO 01/12/20 21:00 01/14/20 10:58 DC 01/13/20 22:43 Diphenhydramine HCl (Benadryl) 50 mg Q4HP PRN PO ANXIETY/AGITATION 12/23/19 15:00 Diphenhydramine HCl (Benadryl) 50 mg STAT STAT IM 12/22/19 21:28 12/22/19 21:30 DC 12/22/19 22:03 Diphenhydramine HCl (Benadryl) 50 mg STAT STAT IM 01/23/20 01:38 01/23/20 01:40 DC 01/23/20 01:49 Diphenhydramine HCl (Benadryl) 50 mg STAT STAT IM 01/23/20 19:56 01/23/20 19:58 DC 01/23/20 20:00 Diphenhydramine HCl (Benadryl) 50 mg STAT STAT IM 01/26/20 16:38 01/26/20 16:42 DC 01/26/20 16:59 Diphenhydramine HCl (Benadryl) 50 mg STAT STAT IM 01/27/20 20:17 01/27/20 20:20 DC 01/27/20 20:32 Diphenhydramine HCl (Benadryl) 50 mg STAT STAT IM 01/31/20 20:14 01/31/20 20:16 DC 01/31/20 20:21 Diphenhydramine HCl (Benadryl) 50 mg STAT STAT IM 02/02/20 13:33 02/02/20 13:37 DC 02/02/20 13:45 Diphenhydramine HCl (Benadryl) 50 mg STAT STAT IM 02/02/20 16:52 02/02/20 16:55 DC 02/02/20 17:09 Diphenhydramine HCl (Benadryl) 50 mg STAT STAT IM 02/15/20 14:29 02/15/20 14:30 DC 02/15/20 14:51 Docusate Sodium (Colace) 100 mg DAILY PO 01/08/20 09:00 02/07/20 08:59 DC 02/03/20 10:23 Fluphenazine HCl (Prolixin) 10 mg BID PO 12/23/19 09:00 12/28/19 09:42 DC Haloperidol (Haldol) 5 mg BID PO 01/18/20 09:00 02/19/20 19:56 Haloperidol (Haldol) 5 mg STAT STAT IM 02/05/20 14:41 02/05/20 14:42 DC 02/05/20 14:50 Haloperidol (Haldol) 10 mg STAT STAT IM 01/23/20 01:38 01/23/20 01:40 DC 01/23/20 01:49 Haloperidol (Haldol) 10 mg STAT STAT IM 01/23/20 21:42 01/23/20 21:44 DC 01/23/20 21:55 Haloperidol (Haldol) 10 mg STAT STAT IM 01/24/20 23:45 01/24/20 23:47 DC 01/25/20 00:04 Haloperidol (Haldol) 10 mg STAT STAT IM 01/25/20 02:22 01/25/20 02:24 DC 01/25/20 02:27 Haloperidol (Haldol) 10 mg STAT STAT IM 01/26/20 16:50 01/26/20 16:52 DC 01/26/20 16:58 Haloperidol (Haldol) 10 mg STAT STAT IM 01/27/20 20:17 01/27/20 20:20 DC 01/27/20 20:32 Haloperidol (Haldol) 10 mg STAT STAT IM 01/31/20 20:14 01/31/20 20:16 DC 01/31/20 20:21 Haloperidol (Haldol) 10 mg STAT STAT IM 02/01/20 19:35 02/01/20 19:37 DC 02/01/20 19:41 Haloperidol (Haldol) 10 mg STAT STAT IM 02/02/20 13:33 02/02/20 13:37 DC 02/02/20 13:46 Haloperidol (Haldol) 10 mg STAT STAT IM 02/02/20 16:52 02/02/20 16:55 DC 02/02/20 17:09 Haloperidol (Haldol) 10 mg STAT STAT PO 01/26/20 16:38 01/26/20 16:52 DC Levothyroxine Sodium (Synthroid) 100 mcg DAILY@06 PO 12/24/19 06:00 01/17/20 06:17 [place] Carbonate (Eskalith Oral Solution) 300 mg BID PO 12/23/19 09:00 12/28/19 09:41 DC 12/28/19 09:35 [place] Carbonate (Eskalith Oral Solution) 450 mg BID PO 12/28/19 21:00 12/31/19 10:58 DC 12/31/19 08:37 [place] Carbonate ([place] Carbonate) 450 mg BID PO 12/31/19 21:00 02/03/20 10:22 Lorazepam (Ativan) 1 mg STAT STAT IM 01/24/20 23:45 01/24/20 23:47 DC 01/25/20 00:04 Lorazepam (Ativan) 1 mg STAT STAT IM 02/06/20 14:47 02/06/20 14:49 DC 02/06/20 14:54 Lorazepam (Ativan) 2 mg STAT STAT IM 01/23/20 01:38 01/23/20 01:40 DC 01/23/20 01:49 Lorazepam (Ativan) 2 mg STAT STAT IM 01/23/20 21:42 01/23/20 21:44 DC 01/23/20 21:56 Lorazepam (Ativan) 2 mg STAT STAT IM 01/26/20 16:38 01/26/20 16:42 DC 01/26/20 16:59 Lorazepam (Ativan) 2 mg STAT STAT IM 01/27/20 20:17 01/27/20 20:20 DC 01/27/20 20:31 Lorazepam (Ativan) 2 mg STAT STAT IM 01/31/20 20:14 01/31/20 20:16 DC 01/31/20 20:21 Lorazepam (Ativan) 2 mg STAT STAT IM 02/01/20 19:35 02/01/20 19:37 DC 02/01/20 19:41 Lorazepam (Ativan) 2 mg STAT STAT IM 02/02/20 13:33 02/02/20 13:37 DC 02/02/20 13:46 Lorazepam (Ativan) 2 mg STAT STAT IM 02/02/20 16:52 02/02/20 16:55 DC 02/02/20 17:09 Lorazepam (Ativan) 2 mg STAT STAT IM 02/05/20 16:29 02/05/20 16:34 DC 02/05/20 16:38 Magnesium Hydroxide (Milk Of Magnesia) 30 ml DAILYPRN PRN PO CONSTIPATION 12/23/19 01:00 Miscellaneous (Unresolved Clarification Entry) SEE LABEL COMMENTS DAILY XX 01/21/20 09:00 01/21/20 08:04 DC Miscellaneous (Unresolved Clarification Entry) SEE LABEL COMMENTS DAILY XX 01/30/20 09:00 01/30/20 13:01 DC Miscellaneous (Unresolved Clarification Entry) SEE LABEL COMMENTS DAILY XX 02/02/20 09:00 02/04/20 09:30 DC Miscellaneous (Unresolved Clarification Entry) SEE LABEL COMMENTS DAILY XX 02/19/20 09:00 02/20/20 13:13 DC Miscellaneous (Unresolved Clarification Entry) SEE LABEL COMMENTS DAILY XX 02/16/20 09:00 02/16/20 09:59 DC Trazodone HCl (Desyrel) 50 mg QHSP PRN PO INSOMNIA 12/23/19 01:00 02/08/20 01:00 Allergies Coded Allergies: Sulfa (Sulfonamide Antibiotics) (Verified Allergy, Severe, hives, 04/25/19) amoxicillin (Verified Allergy, Intermediate, rash, 04/25/19) azithromycin (Verified Allergy, Intermediate, rash, 04/25/19) levothyroxine (Verified Allergy, Unknown, 12/22/19) pt states it makes her collapse LYRIC REID DO Feb 24, 2020 07:43
[2020-02-24] MEDS: chlorproMAZINE 25 MG TABLET PO SCH ×3 (09:00→20:52)
[2020-02-24] MEDS: haloperidoL 5 MG TAB PO SCH ×2 (09:00→20:52)
[2020-02-24] MEDS: LITHIUM CARBONATE 150 MG CAP PO SCH ×2 (09:00→20:52)
[2020-02-25] MEDS: LEVOTHYROXINE 100MCG TABLET (0.1MG) PO SCH (06:00)
[2020-02-25] MEDS: LITHIUM CARBONATE 150 MG CAP PO SCH ×2 (09:00→21:00)
[2020-02-25] MEDS: haloperidoL 5 MG TAB PO SCH ×2 (09:00→21:00)
[2020-02-25] MEDS: chlorproMAZINE 25 MG TABLET PO SCH ×3 (12:15→21:00)
[2020-02-25] MEDS ORDERED: diphenhydrAMINE 50MG/ML VIAL (J1200) IM ONE (20:15)
--- NOTE | 2020-02-25 20:51 | MHIPNPDOC ---
[facility] Progress Note Progress Note DATE OF SERVICE: 02/25/20 HISTORY: 29 year old female with history of Schizoaffective disorder, medication non compliance, multiple admissions to [facility] and other mental hospitals, aggre ssion, violence and psychosis. The patient has been refusing to engage in treatment to speak to staff although later she has been more cooperative. VITAL SIGNS: See below. NEW TEST RESULTS: See below CURRENT MEDICATIONS: See below. MENTAL STATUS EXAMINATION: Patient is a 29 year old female, who is alert, dressed in hospital clothes, she was laying on her hospital bed, wrapped in her blankets Speech: Is a little bit slurred, rapid, a little bit pressured Language skills are fair. Thought processes including: not organized, circumstantial. Thought content: Denies depressive/angry thoughts, denies anxious thoughts. Focused on obtaining Benadryl IM. She denies SI/HI Description of associations: mildly loose. Description of abnormal or psychotic thoughts: Paranoid and grandiose delusions. She denies TAV hallucinations, she doesn't seem to be responding to internal stimuli Judgment: Poor Insight: Poor. Orientation: oriented to person and place but only partially to date and time Recent and remote memory: Poor. Attention span and concentration: unable to focus Fund of knowledge: unable to assess Mood: euthymic Affect: congruent with mood, calm DIAGNOSES: 1. Schizoaffective disorder 2. cocaine use disorder ASSESSMENT: She is accepting her Thorazine PO now, hopefully she will accept her Benadryl PO too. She is calm, cooperative, seems sleepy. Her speech is stil rapid and she is still delusional but she was not violent or aggressive at this time. MANAGEMENT PLAN: Will continue current treatment plan TIME SPENT: 10 minutes. Current Medications Current Medications Medications (Trade) Dose Ordered Sig/Ruth Route PRN Reason Start Time Stop Time Status Last Admin Dose Admin Acetaminophen (Tylenol Tab) 650 mg Q6HP PRN PO HEADACHE or DISCOMFORT 12/23/19 01:00 02/03/20 14:04 Al Hydrox/Mg Hydrox/Simethicone (Mylanta) 30 ml Q4HP PRN PO HEARTBURN/INDIGESTION 12/23/19 01:00 Chlorpromazine HCl (Thorazine) 50 mg STAT STAT IM 02/01/20 21:01 02/01/20 21:03 DC 02/01/20 21:07 Chlorpromazine HCl (Thorazine) 50 mg STAT STAT IM 02/05/20 16:29 02/05/20 16:34 DC 02/05/20 16:38 Chlorpromazine HCl (Thorazine) 50 mg STAT STAT IM 02/06/20 14:47 02/06/20 14:49 DC 02/06/20 14:54 Chlorpromazine HCl (Thorazine) 100 mg Q6HP PRN PO AGITATION 12/28/19 14:00 12/28/19 14:00 DC Chlorpromazine HCl (Thorazine) 100 mg STAT STAT IM 12/29/19 13:02 12/29/19 13:04 DC 12/29/19 13:32 Chlorpromazine HCl (Thorazine) 100 mg STAT STAT IM 01/31/20 21:38 01/31/20 21:40 DC 01/31/20 21:42 Chlorpromazine HCl (Thorazine) 150 mg Q6HP PRN PO AGITATION/anxiety 12/28/19 14:00 01/04/20 13:34 DC 01/04/20 09:25 Chlorpromazine HCl (Thorazine) 150 mg STAT STAT IM 01/23/20 19:56 01/23/20 19:58 DC 01/23/20 19:59 Chlorpromazine HCl (Thorazine) 150 mg STAT STAT IM 01/27/20 22:16 01/27/20 22:17 DC 01/27/20 22:54 Chlorpromazine HCl (Thorazine) 150 mg TID PO 01/04/20 16:00 02/25/20 17:20 Clozapine (Clozaril) 12.5 mg QHS PO 01/06/20 21:00 01/12/20 09:29 DC 01/11/20 20:13 Clozapine (Clozaril) 25 mg BID PO 01/14/20 21:00 01/18/20 09:33 DC 01/16/20 21:17 Clozapine (Clozaril) 25 mg QHS PO 01/12/20 21:00 01/14/20 10:58 DC 01/13/20 22:43 Diphenhydramine HCl (Benadryl) 50 mg Q4HP PRN PO ANXIETY/AGITATION 12/23/19 15:00 Diphenhydramine HCl (Benadryl) 50 mg STAT STAT IM 12/22/19 21:28 12/22/19 21:30 DC 12/22/19 22:03 Diphenhydramine HCl (Benadryl) 50 mg STAT STAT IM 01/23/20 01:38 01/23/20 01:40 DC 01/23/20 01:49 Diphenhydramine HCl (Benadryl) 50 mg STAT STAT IM 01/23/20 19:56 01/23/20 19:58 DC 01/23/20 20:00 Diphenhydramine HCl (Benadryl) 50 mg STAT STAT IM 01/26/20 16:38 01/26/20 16:42 DC 01/26/20 16:59 Diphenhydramine HCl (Benadryl) 50 mg STAT STAT IM 01/27/20 20:17 01/27/20 20:20 DC 01/27/20 20:32 Diphenhydramine HCl (Benadryl) 50 mg STAT STAT IM 01/31/20 20:14 01/31/20 20:16 DC 01/31/20 20:21 Diphenhydramine HCl (Benadryl) 50 mg STAT STAT IM 02/02/20 13:33 02/02/20 13:37 DC 02/02/20 13:45 Diphenhydramine HCl (Benadryl) 50 mg STAT STAT IM 02/02/20 16:52 02/02/20 16:55 DC 02/02/20 17:09 Diphenhydramine HCl (Benadryl) 50 mg STAT STAT IM 02/15/20 14:29 02/15/20 14:30 DC 02/15/20 14:51 Docusate Sodium (Colace) 100 mg DAILY PO 01/08/20 09:00 02/07/20 08:59 DC 02/03/20 10:23 Fluphenazine HCl (Prolixin) 10 mg BID PO 12/23/19 09:00 12/28/19 09:42 DC Haloperidol (Haldol) 5 mg BID PO 01/18/20 09:00 02/19/20 19:56 Haloperidol (Haldol) 5 mg STAT STAT IM 02/05/20 14:41 02/05/20 14:42 DC 02/05/20 14:50 Haloperidol (Haldol) 10 mg STAT STAT IM 01/23/20 01:38 01/23/20 01:40 DC 01/23/20 01:49 Haloperidol (Haldol) 10 mg STAT STAT IM 01/23/20 21:42 01/23/20 21:44 DC 01/23/20 21:55 Haloperidol (Haldol) 10 mg STAT STAT IM 01/24/20 23:45 01/24/20 23:47 DC 01/25/20 00:04 Haloperidol (Haldol) 10 mg STAT STAT IM 01/25/20 02:22 01/25/20 02:24 DC 01/25/20 02:27 Haloperidol (Haldol) 10 mg STAT STAT IM 01/26/20 16:50 01/26/20 16:52 DC 01/26/20 16:58 Haloperidol (Haldol) 10 mg STAT STAT IM 01/27/20 20:17 01/27/20 20:20 DC 01/27/20 20:32 Haloperidol (Haldol) 10 mg STAT STAT IM 01/31/20 20:14 01/31/20 20:16 DC 01/31/20 20:21 Haloperidol (Haldol) 10 mg STAT STAT IM 02/01/20 19:35 02/01/20 19:37 DC 02/01/20 19:41 Haloperidol (Haldol) 10 mg STAT STAT IM 02/02/20 13:33 02/02/20 13:37 DC 02/02/20 13:46 Haloperidol (Haldol) 10 mg STAT STAT IM 02/02/20 16:52 02/02/20 16:55 DC 02/02/20 17:09 Haloperidol (Haldol) 10 mg STAT STAT PO 01/26/20 16:38 01/26/20 16:52 DC Levothyroxine Sodium (Synthroid) 100 mcg DAILY@06 PO 12/24/19 06:00 01/17/20 06:17 [place] Carbonate (Eskalith Oral Solution) 300 mg BID PO 12/23/19 09:00 12/28/19 09:41 DC 12/28/19 09:35 [place] Carbonate (Eskalith Oral Solution) 450 mg BID PO 12/28/19 21:00 12/31/19 10:58 DC 12/31/19 08:37 [place] Carbonate ([place] Carbonate) 450 mg BID PO 12/31/19 21:00 02/03/20 10:22 Lorazepam (Ativan) 1 mg STAT STAT IM 01/24/20 23:45 01/24/20 23:47 DC 01/25/20 00:04 Lorazepam (Ativan) 1 mg STAT STAT IM 02/06/20 14:47 02/06/20 14:49 DC 02/06/20 14:54 Lorazepam (Ativan) 2 mg STAT STAT IM 01/23/20 01:38 01/23/20 01:40 DC 01/23/20 01:49 Lorazepam (Ativan) 2 mg STAT STAT IM 01/23/20 21:42 01/23/20 21:44 DC 01/23/20 21:56 Lorazepam (Ativan) 2 mg STAT STAT IM 01/26/20 16:38 01/26/20 16:42 DC 01/26/20 16:59 Lorazepam (Ativan) 2 mg STAT STAT IM 01/27/20 20:17 01/27/20 20:20 DC 01/27/20 20:31 Lorazepam (Ativan) 2 mg STAT STAT IM 01/31/20 20:14 01/31/20 20:16 DC 01/31/20 20:21 Lorazepam (Ativan) 2 mg STAT STAT IM 02/01/20 19:35 02/01/20 19:37 DC 02/01/20 19:41 Lorazepam (Ativan) 2 mg STAT STAT IM 02/02/20 13:33 02/02/20 13:37 DC 02/02/20 13:46 Lorazepam (Ativan) 2 mg STAT STAT IM 02/02/20 16:52 02/02/20 16:55 DC 02/02/20 17:09 Lorazepam (Ativan) 2 mg STAT STAT IM 02/05/20 16:29 02/05/20 16:34 DC 02/05/20 16:38 Magnesium Hydroxide (Milk Of Magnesia) 30 ml DAILYPRN PRN PO CONSTIPATION 12/23/19 01:00 Miscellaneous (Unresolved Clarification Entry) SEE LABEL COMMENTS DAILY XX 01/21/20 09:00 01/21/20 08:04 DC Miscellaneous (Unresolved Clarification Entry) SEE LABEL COMMENTS DAILY XX 01/30/20 09:00 01/30/20 13:01 DC Miscellaneous (Unresolved Clarification Entry) SEE LABEL COMMENTS DAILY XX 02/02/20 09:00 02/04/20 09:30 DC Miscellaneous (Unresolved Clarification Entry) SEE LABEL COMMENTS DAILY XX 02/19/20 09:00 02/20/20 13:13 DC Miscellaneous (Unresolved Clarification Entry) SEE LABEL COMMENTS DAILY XX 02/16/20 09:00 02/16/20 09:59 DC Trazodone HCl (Desyrel) 50 mg QHSP PRN PO INSOMNIA 12/23/19 01:00 02/08/20 01:00 Allergies Coded Allergies: Sulfa (Sulfonamide Antibiotics) (Verified Allergy, Severe, hives, 04/25/19) amoxicillin (Verified Allergy, Intermediate, rash, 04/25/19) azithromycin (Verified Allergy, Intermediate, rash, 04/25/19) levothyroxine (Verified Allergy, Unknown, 12/22/19) pt states it makes her collapse LOBITO AGUERO MD Feb 25, 2020 20:51
[2020-02-26] MEDS: LEVOTHYROXINE 100MCG TABLET (0.1MG) PO SCH (06:00)
[2020-02-26] MEDS: chlorproMAZINE 25 MG TABLET PO SCH ×3 (09:00→21:00)
[2020-02-26] MEDS: LITHIUM CARBONATE 150 MG CAP PO SCH ×2 (09:00→21:00)
[2020-02-26] MEDS: haloperidoL 5 MG TAB PO SCH ×2 (09:00→21:00)
[2020-02-26] MEDS ORDERED: diphenhydrAMINE 50MG/ML VIAL (J1200) IM ONE (21:45)
[2020-02-27] MEDS: LEVOTHYROXINE 100MCG TABLET (0.1MG) PO SCH (06:00)
[2020-02-27] MEDS: chlorproMAZINE 25 MG TABLET PO SCH ×3 (08:57→21:00)
[2020-02-27] MEDS: LITHIUM CARBONATE 150 MG CAP PO SCH ×2 (08:57→21:00)
[2020-02-27] MEDS: haloperidoL 5 MG TAB PO SCH ×2 (08:57→21:00)
[2020-02-27] MEDS ORDERED: diphenhydrAMINE 50MG/ML VIAL (J1200) IM ONE (22:15)
[2020-02-28] MEDS: LEVOTHYROXINE 100MCG TABLET (0.1MG) PO SCH (05:53)
--- NOTE | 2020-02-28 07:40 | MHIPNPDOC ---
[facility] Progress Note Progress Note DATE OF SERVICE: 02/24/20 (late entry) HPI: Latrice presents today for concerns regarding his/her follow up concerning her seizures and transferring to [place]. She has been receiving Benadryl injections and denies any pain from them. She also notes she does not plan on stopping the injections anytime soon. MEDICAL HISTORY: Patient has attempted to transfer to [place], but was rejected. Objective Behavior: Psychotic distorted. Speech: Hyper-verbal. Insight: Poor insight. Assessment F25.0 Schizoaffective disorder, bipolar type Plan Patient will continue to be offered medication. She will be transferred to [place]. Patient will follow up with the condition of her injection site and if it becomes infected. Current Medications Current Medications Medications (Trade) Dose Ordered Sig/Ruth Route PRN Reason Start Time Stop Time Status Last Admin Dose Admin Acetaminophen (Tylenol Tab) 650 mg Q6HP PRN PO HEADACHE or DISCOMFORT 12/23/19 01:00 02/03/20 14:04 [place] Hydrox/Mg Hydrox/Simethicone (Mylanta) 30 ml Q4HP PRN PO HEARTBURN/INDIGESTION 12/23/19 01:00 Chlorpromazine HCl (Thorazine) 50 mg STAT STAT IM 02/01/20 21:01 02/01/20 21:03 DC 02/01/20 21:07 Chlorpromazine HCl (Thorazine) 50 mg STAT STAT IM 02/05/20 16:29 02/05/20 16:34 DC 02/05/20 16:38 Chlorpromazine HCl (Thorazine) 50 mg STAT STAT IM 02/06/20 14:47 02/06/20 14:49 DC 02/06/20 14:54 Chlorpromazine HCl (Thorazine) 100 mg Q6HP PRN PO AGITATION 12/28/19 14:00 12/28/19 14:00 DC Chlorpromazine HCl (Thorazine) 100 mg STAT STAT IM 12/29/19 13:02 12/29/19 13:04 DC 12/29/19 13:32 Chlorpromazine HCl (Thorazine) 100 mg STAT STAT IM 01/31/20 21:38 01/31/20 21:40 DC 01/31/20 21:42 Chlorpromazine HCl (Thorazine) 150 mg Q6HP PRN PO AGITATION/anxiety 12/28/19 14:00 01/04/20 13:34 DC 01/04/20 09:25 Chlorpromazine HCl (Thorazine) 150 mg STAT STAT IM 01/23/20 19:56 01/23/20 19:58 DC 01/23/20 19:59 Chlorpromazine HCl (Thorazine) 150 mg STAT STAT IM 01/27/20 22:16 01/27/20 22:17 DC 01/27/20 22:54 Chlorpromazine HCl (Thorazine) 150 mg TID PO 01/04/20 16:00 02/25/20 17:20 Clozapine (Clozaril) 12.5 mg QHS PO 01/06/20 21:00 01/12/20 09:29 DC 01/11/20 20:13 Clozapine (Clozaril) 25 mg BID PO 01/14/20 21:00 01/18/20 09:33 DC 01/16/20 21:17 Clozapine (Clozaril) 25 mg QHS PO 01/12/20 21:00 01/14/20 10:58 DC 01/13/20 22:43 Diphenhydramine HCl (Benadryl) 50 mg Q4HP PRN PO ANXIETY/AGITATION 12/23/19 15:00 Diphenhydramine HCl (Benadryl) 50 mg STAT STAT IM 12/22/19 21:28 12/22/19 21:30 DC 12/22/19 22:03 Diphenhydramine HCl (Benadryl) 50 mg STAT STAT IM 01/23/20 01:38 01/23/20 01:40 DC 01/23/20 01:49 Diphenhydramine HCl (Benadryl) 50 mg STAT STAT IM 01/23/20 19:56 01/23/20 19:58 DC 01/23/20 20:00 Diphenhydramine HCl (Benadryl) 50 mg STAT STAT IM 01/26/20 16:38 01/26/20 16:42 DC 01/26/20 16:59 Diphenhydramine HCl (Benadryl) 50 mg STAT STAT IM 01/27/20 20:17 01/27/20 20:20 DC 01/27/20 20:32 Diphenhydramine HCl (Benadryl) 50 mg STAT STAT IM 01/31/20 20:14 01/31/20 20:16 DC 01/31/20 20:21 Diphenhydramine HCl (Benadryl) 50 mg STAT STAT IM 02/02/20 13:33 02/02/20 13:37 DC 02/02/20 13:45 Diphenhydramine HCl (Benadryl) 50 mg STAT STAT IM 02/02/20 16:52 02/02/20 16:55 DC 02/02/20 17:09 Diphenhydramine HCl (Benadryl) 50 mg STAT STAT IM 02/15/20 14:29 02/15/20 14:30 DC 02/15/20 14:51 Docusate Sodium (Colace) 100 mg DAILY PO 01/08/20 09:00 02/07/20 08:59 DC 02/03/20 10:23 Fluphenazine HCl (Prolixin) 10 mg BID PO 12/23/19 09:00 12/28/19 09:42 DC Haloperidol (Haldol) 5 mg BID PO 01/18/20 09:00 02/19/20 19:56 Haloperidol (Haldol) 5 mg STAT STAT IM 02/05/20 14:41 02/05/20 14:42 DC 02/05/20 14:50 Haloperidol (Haldol) 10 mg STAT STAT IM 01/23/20 01:38 01/23/20 01:40 DC 01/23/20 01:49 Haloperidol (Haldol) 10 mg STAT STAT IM 01/23/20 21:42 01/23/20 21:44 DC 01/23/20 21:55 Haloperidol (Haldol) 10 mg STAT STAT IM 01/24/20 23:45 01/24/20 23:47 DC 01/25/20 00:04 Haloperidol (Haldol) 10 mg STAT STAT IM 01/25/20 02:22 01/25/20 02:24 DC 01/25/20 02:27 Haloperidol (Haldol) 10 mg STAT STAT IM 01/26/20 16:50 01/26/20 16:52 DC 01/26/20 16:58 Haloperidol (Haldol) 10 mg STAT STAT IM 01/27/20 20:17 01/27/20 20:20 DC 01/27/20 20:32 Haloperidol (Haldol) 10 mg STAT STAT IM 01/31/20 20:14 01/31/20 20:16 DC 01/31/20 20:21 Haloperidol (Haldol) 10 mg STAT STAT IM 02/01/20 19:35 02/01/20 19:37 DC 02/01/20 19:41 Haloperidol (Haldol) 10 mg STAT STAT IM 02/02/20 13:33 02/02/20 13:37 DC 02/02/20 13:46 Haloperidol (Haldol) 10 mg STAT STAT IM 02/02/20 16:52 02/02/20 16:55 DC 02/02/20 17:09 Haloperidol (Haldol) 10 mg STAT STAT PO 01/26/20 16:38 01/26/20 16:52 DC Levothyroxine Sodium (Synthroid) 100 mcg DAILY@06 PO 12/24/19 06:00 01/17/20 06:17 [place] Carbonate (Eskalith Oral Solution) 300 mg BID PO 12/23/19 09:00 12/28/19 09:41 DC 12/28/19 09:35 [place] Carbonate (Eskalith Oral Solution) 450 mg BID PO 12/28/19 21:00 12/31/19 10:58 DC 12/31/19 08:37 [place] Carbonate ([place] Carbonate) 450 mg BID PO 12/31/19 21:00 02/03/20 10:22 Lorazepam (Ativan) 1 mg STAT STAT IM 01/24/20 23:45 01/24/20 23:47 DC 01/25/20 00:04 Lorazepam (Ativan) 1 mg STAT STAT IM 02/06/20 14:47 02/06/20 14:49 DC 02/06/20 14:54 Lorazepam (Ativan) 2 mg STAT STAT IM 01/23/20 01:38 01/23/20 01:40 DC 01/23/20 01:49 Lorazepam (Ativan) 2 mg STAT STAT IM 01/23/20 21:42 01/23/20 21:44 DC 01/23/20 21:56 Lorazepam (Ativan) 2 mg STAT STAT IM 01/26/20 16:38 01/26/20 16:42 DC 01/26/20 16:59 Lorazepam (Ativan) 2 mg STAT STAT IM 01/27/20 20:17 01/27/20 20:20 DC 01/27/20 20:31 Lorazepam (Ativan) 2 mg STAT STAT IM 01/31/20 20:14 01/31/20 20:16 DC 01/31/20 20:21 Lorazepam (Ativan) 2 mg STAT STAT IM 02/01/20 19:35 02/01/20 19:37 DC 02/01/20 19:41 Lorazepam (Ativan) 2 mg STAT STAT IM 02/02/20 13:33 02/02/20 13:37 DC 02/02/20 13:46 Lorazepam (Ativan) 2 mg STAT STAT IM 02/02/20 16:52 02/02/20 16:55 DC 02/02/20 17:09 Lorazepam (Ativan) 2 mg STAT STAT IM 02/05/20 16:29 02/05/20 16:34 DC 02/05/20 16:38 Magnesium Hydroxide (Milk Of Magnesia) 30 ml DAILYPRN PRN PO CONSTIPATION 12/23/19 01:00 Miscellaneous (Unresolved Clarification Entry) SEE LABEL COMMENTS DAILY XX 01/21/20 09:00 01/21/20 08:04 DC Miscellaneous (Unresolved Clarification Entry) SEE LABEL COMMENTS DAILY XX 01/30/20 09:00 01/30/20 13:01 DC Miscellaneous (Unresolved Clarification Entry) SEE LABEL COMMENTS DAILY XX 02/02/20 09:00 02/04/20 09:30 DC Miscellaneous (Unresolved Clarification Entry) SEE LABEL COMMENTS DAILY XX 02/19/20 09:00 02/20/20 13:13 DC Miscellaneous (Unresolved Clarification Entry) SEE LABEL COMMENTS DAILY XX 02/16/20 09:00 02/16/20 09:59 DC Trazodone HCl (Desyrel) 50 mg QHSP PRN PO INSOMNIA 12/23/19 01:00 02/08/20 01:00 Allergies Coded Allergies: Sulfa (Sulfonamide Antibiotics) (Verified Allergy, Severe, hives, 04/25/19) amoxicillin (Verified Allergy, Intermediate, rash, 04/25/19) azithromycin (Verified Allergy, Intermediate, rash, 04/25/19) levothyroxine (Verified Allergy, Unknown, 12/22/19) pt states it makes her collapse LYRIC REID DO Feb 28, 2020 07:40
[2020-02-28] MEDS: haloperidoL 5 MG TAB PO SCH ×2 (09:00→21:00)
[2020-02-28] MEDS: LITHIUM CARBONATE 150 MG CAP PO SCH ×2 (09:00→21:00)
[2020-02-28] MEDS: chlorproMAZINE 25 MG TABLET PO SCH ×3 (09:00→21:00)
--- NOTE | 2020-02-28 18:54 | MHIPN ---
DATE: 02/28/2020 I am assigned to her care today. She is seen for followup in the presence of staff. CHIEF COMPLAINT: Says feels okay. SUBJECTIVE: Seen for followup in the presence of staff. Says feels okay, though does not elaborate, and then says like injections of benzodiazepine three times a day. Says also has seizures. MENTAL STATUS EXAMINATION: Cooperative for the most part. No agitation. No psychomotor retardation. Coherent, though tangential at times. Affect is reactive, though appears a bit restricted, somewhat insistent. No evidence of any thoughts of harming herself or anyone else actively. Remains deluded. Judgment and insight are poor. ASSESSMENT: Schizoaffective disorder, bipolar type. PLAN: Continue current care and observations. Further recommendations will be made depending on the clinical picture.
[2020-02-28] MEDS ORDERED: diphenhydrAMINE 50MG/ML VIAL (J1200) IM ONE (23:00)
[2020-02-29] MEDS: LEVOTHYROXINE 100MCG TABLET (0.1MG) PO SCH (06:00)
[2020-02-29] MEDS: haloperidoL 5 MG TAB PO SCH ×2 (09:00→21:00)
[2020-02-29] MEDS: chlorproMAZINE 25 MG TABLET PO SCH ×3 (09:00→21:00)
[2020-02-29] MEDS: LITHIUM CARBONATE 150 MG CAP PO SCH ×2 (09:00→21:00)
--- NOTE | 2020-02-29 20:35 | MHIPN ---
DATE: 02/29/2020 I am assigned to her care. She declined to see me when I went to see her with staff, and said something about the medications she was on, but declined to engage in a conversation. I was unable to assess her. For now, we will continue with current care.
[2020-02-29] MEDS: traZODone 50 MG TAB PO PRN (22:53)
[2020-03-01] MEDS: LEVOTHYROXINE 100MCG TABLET (0.1MG) PO SCH (06:00)
[2020-03-01] MEDS: chlorproMAZINE 25 MG TABLET PO SCH ×3 (09:00→22:02)
[2020-03-01] MEDS: LITHIUM CARBONATE 150 MG CAP PO SCH ×2 (09:00→22:02)
[2020-03-01] MEDS: haloperidoL 5 MG TAB PO SCH ×2 (09:00→21:00)
[2020-03-02] MEDS: LEVOTHYROXINE 100MCG TABLET (0.1MG) PO SCH (06:00)
--- NOTE | 2020-03-02 08:40 | MHIPN ---
DATE: 03/01/2020 I am assigned to her care today, she declined to see me. In view of this, I would suggest continuing with current observations and care. She is awaiting jail care.
[2020-03-02] MEDS: chlorproMAZINE 25 MG TABLET PO SCH (09:00)
[2020-03-02] MEDS: haloperidoL 5 MG TAB PO SCH (09:00)
[2020-03-02] MEDS: LITHIUM CARBONATE 150 MG CAP PO SCH (09:00)
[2020-03-05] MEDS ORDERED: ACETAMINOPHEN TAB 650MG DOSE (2X325MG) ONE (11:47)
[2020-03-06] MEDS ORDERED: chlorproMAZINE 25 MG TABLET ONE (10:34)
[2020-03-06] MEDS ORDERED: haloperidoL 5 MG TAB ONE (10:34)
[2020-03-06] MEDS ORDERED: traZODone 50 MG TAB ONE ×2 (12:13→22:35)
[2020-03-06] MEDS ORDERED: ACETAMINOPHEN TAB 650MG DOSE (2X325MG) ONE (22:35)
[2020-03-07] MEDS ORDERED: diphenhydrAMINE 50MG/ML VIAL (J1200) As Ordered ONE ×2 (11:05→23:20)
[2020-03-07] MEDS ORDERED: chlorproMAZINE INJ 50MG/2ML AMP (J3230) As Ordered ONE (11:05)
[2020-03-07] MEDS ORDERED: haloperidoL 5 MG TAB ONE (21:20)
[2020-03-07] MEDS ORDERED: LITHIUM CARBONATE 150 MG CAP ONE (21:20)
[2020-03-07] MEDS ORDERED: chlorproMAZINE 25 MG TABLET ONE (21:20)
[2020-03-07] MEDS ORDERED: traZODone 50 MG TAB ONE (21:20)
[2020-03-07] MEDS ORDERED: ACETAMINOPHEN TAB 650MG DOSE (2X325MG) ONE (22:46)
[2020-03-08] MEDS ORDERED: HALOPERIDOL 5MG/ML VIAL (J1630 PER 1) As Ordered ONE ×2 (15:40→20:14)
[2020-03-08] MEDS ORDERED: diphenhydrAMINE 50MG/ML VIAL (J1200) As Ordered ONE ×2 (15:40→20:14)
[2020-03-08] MEDS ORDERED: LORazepam 2 MG/ML VIAL As Ordered ONE ×2 (15:42→20:15)
[2020-03-09] MEDS ORDERED: haloperidoL 5 MG TAB ONE (11:34)
[2020-03-09] MEDS ORDERED: ACETAMINOPHEN TAB 650MG DOSE (2X325MG) ONE (11:34)
[2020-03-09] MEDS ORDERED: chlorproMAZINE 25 MG TABLET ONE (11:34)
[2020-03-09] MEDS ORDERED: chlorproMAZINE INJ 50MG/2ML AMP (J3230) As Ordered ONE ×3 (11:58→22:40)
[2020-03-09] MEDS ORDERED: diphenhydrAMINE 50MG/ML VIAL (J1200) As Ordered ONE ×3 (11:59→21:13)
[2020-03-09] MEDS ORDERED: LORazepam 2 MG/ML VIAL As Ordered ONE ×2 (14:45→21:13)
[2020-03-09] MEDS ORDERED: HALOPERIDOL 5MG/ML VIAL (J1630 PER 1) As Ordered ONE (21:13)
[2020-03-10] MEDS ORDERED: ACETAMINOPHEN TAB 650MG DOSE (2X325MG) ONE ×2 (01:35→10:48)
[2020-03-10] MEDS ORDERED: diphenhydrAMINE 50MG/ML VIAL (J1200) As Ordered ONE ×3 (04:15→23:34)
[2020-03-10] MEDS ORDERED: HALOPERIDOL 5MG/ML VIAL (J1630 PER 1) As Ordered ONE (04:15)
[2020-03-10] MEDS ORDERED: diphenhydrAMINE 50MG/ML VIAL (J1200) ONE ×3 (04:15→23:33)
[2020-03-10] MEDS ORDERED: HALOPERIDOL 5MG/ML VIAL (J1630 PER 1) ONE (04:15)
[2020-03-10] MEDS ORDERED: LORazepam 2 MG/ML VIAL As Ordered ONE (04:16)
[2020-03-10] MEDS ORDERED: LORazepam 2 MG/ML VIAL ONE (04:16)
[2020-03-10] MEDS ORDERED: chlorproMAZINE INJ 50MG/2ML AMP (J3230) ONE ×2 (20:06→23:33)
[2020-03-10] MEDS ORDERED: chlorproMAZINE INJ 50MG/2ML AMP (J3230) As Ordered ONE ×2 (20:16→23:33)
[2020-03-11] MEDS ORDERED: LITHIUM CARBONATE 150 MG CAP ONE (08:41)
[2020-03-11] MEDS ORDERED: haloperidoL 5 MG TAB ONE (08:41)
[2020-03-11] MEDS ORDERED: chlorproMAZINE 25 MG TABLET ONE (08:41)
[2020-03-11] MEDS ORDERED: HALOPERIDOL 5MG/ML VIAL (J1630 PER 1) As Ordered ONE ×3 (20:13→21:32)
[2020-03-11] MEDS ORDERED: diphenhydrAMINE 50MG/ML VIAL (J1200) As Ordered ONE ×3 (20:13→21:33)
[2020-03-11] MEDS ORDERED: LORazepam 2 MG/ML VIAL As Ordered ONE ×3 (20:14→21:33)
[2020-03-12] MEDS ORDERED: HALOPERIDOL 5MG/ML VIAL (J1630 PER 1) As Ordered ONE ×4 (18:33→23:07)
[2020-03-12] MEDS ORDERED: diphenhydrAMINE 50MG/ML VIAL (J1200) As Ordered ONE ×4 (18:34→23:08)
[2020-03-12] MEDS ORDERED: LORazepam 2 MG/ML VIAL As Ordered ONE ×4 (18:35→23:08)
[2020-03-12] MEDS ORDERED: ACETAMINOPHEN TAB 650MG DOSE (2X325MG) ONE (22:50)
[2020-03-13] MEDS ORDERED: diphenhydrAMINE 50MG/ML VIAL (J1200) As Ordered ONE ×3 (02:27→19:43)
[2020-03-13] MEDS ORDERED: HALOPERIDOL 5MG/ML VIAL (J1630 PER 1) As Ordered ONE ×4 (02:28→21:18)
[2020-03-13] MEDS ORDERED: LORazepam 2 MG/ML VIAL As Ordered ONE ×3 (02:28→21:19)
[2020-03-14] MEDS ORDERED: ACETAMINOPHEN TAB 650MG DOSE (2X325MG) ONE (00:16)
[2020-03-14] MEDS ORDERED: HALOPERIDOL 5MG/ML VIAL (J1630 PER 1) As Ordered ONE ×2 (03:52→18:48)
[2020-03-14] MEDS ORDERED: LORazepam 2 MG/ML VIAL As Ordered ONE ×2 (03:53→18:49)
[2020-03-14] MEDS ORDERED: chlorproMAZINE INJ 50MG/2ML AMP (J3230) As Ordered ONE (20:06)
[2020-03-14] MEDS ORDERED: BENZTROPINE MESYLATE 2MG/2ML VIAL As Ordered ONE (20:58)
[2020-03-14] MEDS ORDERED: diphenhydrAMINE 50MG/ML VIAL (J1200) As Ordered ONE (23:21)
[2020-03-15] MEDS ORDERED: chlorproMAZINE INJ 50MG/2ML AMP (J3230) As Ordered ONE (15:43)
[2020-03-15] MEDS ORDERED: diphenhydrAMINE 50MG/ML VIAL (J1200) As Ordered ONE ×5 (15:44→22:56)
[2020-03-15] MEDS ORDERED: LORazepam 2 MG/ML VIAL As Ordered ONE ×4 (20:10→22:57)
[2020-03-15] MEDS ORDERED: HALOPERIDOL 5MG/ML VIAL (J1630 PER 1) As Ordered ONE ×3 (20:10→22:55)
[2020-03-17] MEDS ORDERED: HALOPERIDOL 5MG/ML VIAL (J1630 PER 1) As Ordered ONE (03:22)
[2020-03-17] MEDS ORDERED: LORazepam 2 MG/ML VIAL As Ordered ONE (03:23)
[2020-03-17] MEDS ORDERED: chlorproMAZINE INJ 50MG/2ML AMP (J3230) As Ordered ONE (13:45)
[2020-03-18] MEDS ORDERED: HALOPERIDOL 5MG/ML VIAL (J1630 PER 1) As Ordered ONE ×3 (11:54→20:48)
[2020-03-18] MEDS ORDERED: diphenhydrAMINE 50MG/ML VIAL (J1200) As Ordered ONE (11:55)
[2020-03-18] MEDS ORDERED: LORazepam 1 MG TAB As Ordered ONE (15:20)
[2020-03-18] MEDS ORDERED: OLANZapine INTRAMUSCULAR 10MG VIAL As Ordered ONE ×2 (16:15→17:21)
[2020-03-18] MEDS ORDERED: chlorproMAZINE INJ 50MG/2ML AMP (J3230) As Ordered ONE (21:55)
[2020-03-20] MEDS ORDERED: OLANZapine INTRAMUSCULAR 10MG VIAL As Ordered ONE ×2 (13:12→16:07)
[2020-03-20] MEDS ORDERED: HALOPERIDOL 5MG/ML VIAL (J1630 PER 1) As Ordered ONE ×2 (20:49→21:32)
[2020-03-20] MEDS ORDERED: diphenhydrAMINE 50MG/ML VIAL (J1200) As Ordered ONE ×2 (20:50→21:34)
[2020-03-20] MEDS ORDERED: LORazepam 2 MG/ML VIAL As Ordered ONE ×2 (20:50→21:35)
[2020-03-21] MEDS ORDERED: LITHIUM CARBONATE 150 MG CAP ONE (09:53)
[2020-03-21] MEDS ORDERED: LITHIUM CARBONATE 300 MG CAP As Ordered ONE (09:54)
[2020-03-21] MEDS ORDERED: HALOPERIDOL DECANOATE 100 MG/ML VIAL (J1631) As Ordered ONE (10:10)
[2020-03-21] MEDS ORDERED: diphenhydrAMINE 50MG/ML VIAL (J1200) As Ordered ONE ×3 (10:30→22:07)
[2020-03-21] MEDS ORDERED: HALOPERIDOL 5MG/ML VIAL (J1630 PER 1) As Ordered ONE ×2 (13:51→22:07)
[2020-03-21] MEDS ORDERED: LORazepam 2 MG/ML VIAL As Ordered ONE ×2 (13:53→22:09)
[2020-03-22] MEDS ORDERED: HALOPERIDOL 5MG/ML VIAL (J1630 PER 1) As Ordered ONE (21:19)
[2020-03-22] MEDS ORDERED: diphenhydrAMINE 50MG/ML VIAL (J1200) As Ordered ONE (21:19)
[2020-03-22] MEDS ORDERED: LORazepam 2 MG/ML VIAL As Ordered ONE (21:20)
[2020-03-23] MEDS ORDERED: MAALOX 30 ML SUSP *UDC As Ordered ONE (22:18)
[2020-03-24] MEDS ORDERED: HALOPERIDOL 5MG/ML VIAL (J1630 PER 1) As Ordered ONE (19:30)
[2020-03-24] MEDS ORDERED: diphenhydrAMINE 50MG/ML VIAL (J1200) As Ordered ONE (19:31)
[2020-03-24] MEDS ORDERED: LORazepam 2 MG/ML VIAL As Ordered ONE (19:31)
[2020-03-25] MEDS ORDERED: diphenhydrAMINE 50MG/ML VIAL (J1200) As Ordered ONE ×2 (21:44→22:30)
[2020-03-25] MEDS ORDERED: HALOPERIDOL 5MG/ML VIAL (J1630 PER 1) As Ordered ONE ×2 (21:44→22:30)
[2020-03-25] MEDS ORDERED: LORazepam 2 MG/ML VIAL As Ordered ONE (21:50)
[2020-03-27] MEDS ORDERED: diphenhydrAMINE 50MG/ML VIAL (J1200) As Ordered ONE (21:58)
[2020-03-28] MEDS ORDERED: ACETAMINOPHEN TAB 650MG DOSE (2X325MG) PO PRN (15:00)
[2020-03-28] MEDS ORDERED: MOM 30ML SUSPENSION UDC PO PRN (15:00)
[2020-03-28] MEDS ORDERED: PILL CUTTER 1 EACH XX PRN (15:00)
[2020-03-28] MEDS: chlorproMAZINE 25 MG TABLET PO SCH (20:51)
[2020-03-28] MEDS: haloperidoL 5 MG TAB PO SCH (20:51)
[2020-03-28] MEDS: LITHIUM CARBONATE 150 MG CAP PO SCH (20:51)
[2020-03-28] MEDS ORDERED: diphenhydrAMINE 50MG/ML VIAL (J1200) IM ONE (21:15)
[2020-03-29] MEDS: LEVOTHYROXINE 100MCG TABLET (0.1MG) PO SCH (05:54)
--- NOTE | 2020-03-29 08:38 | MHIPNPDOC ---
[facility] Progress Note Progress Note DATE OF SERVICE: 03/28/20 Subjective HPI: Patient denies treatment of rejection court, but informs wanting to sign release forms due to stay being over 1 month. Objective Appearance: Well groomed. Patient was met in her room and stays curled up under covers. Appears to be stated age. Well nourished. Behavior: Cooperative with good eye contact. Generally uninterested in engaging and reports that she does not want to go to court. Engaged. Pleasant. Assessment F25.0 Schizoaffective disorder, bipolar type Plan Continue offering medication stream of objection for Friday. Patient refuses to go to court, currently hashing out details for the treatment of objection petition. Current Medications Current Medications Medications (Trade) Dose Ordered Sig/Ruth Route PRN Reason Start Time Stop Time Status Last Admin Dose Admin Acetaminophen (Tylenol Tab) 650 mg Q6HP PRN PO HEADACHE or DISCOMFORT 12/23/19 01:00 03/25/20 13:23 DC 02/03/20 14:04 Acetaminophen (Tylenol Tab) 650 mg Q6HP PRN PO HEADACHE OR DISCOMFORT 03/28/20 15:00 Al Hydrox/Mg Hydrox/Simethicone (Mylanta) 30 ml Q4HP PRN PO HEARTBURN/INDIGESTION 12/23/19 01:00 03/25/20 13:23 DC Al Hydrox/Mg Hydrox/Simethicone (Mylanta) 30 ml Q4HP PRN PO HEARTBURN/INDIGESTION 03/28/20 15:00 Chlorpromazine HCl (Thorazine) 50 mg STAT STAT IM 02/01/20 21:01 02/01/20 21:03 DC 02/01/20 21:07 Chlorpromazine HCl (Thorazine) 50 mg STAT STAT IM 02/05/20 16:29 02/05/20 16:34 DC 02/05/20 16:38 Chlorpromazine HCl (Thorazine) 50 mg STAT STAT IM 02/06/20 14:47 02/06/20 14:49 DC 02/06/20 14:54 Chlorpromazine HCl (Thorazine) 100 mg Q6HP PRN PO AGITATION 12/28/19 14:00 12/28/19 14:00 DC Chlorpromazine HCl (Thorazine) 100 mg STAT STAT IM 12/29/19 13:02 12/29/19 13:04 DC 12/29/19 13:32 Chlorpromazine HCl (Thorazine) 100 mg STAT STAT IM 01/31/20 21:38 01/31/20 21:40 DC 01/31/20 21:42 Chlorpromazine HCl (Thorazine) 150 mg Q6HP PRN PO AGITATION/anxiety 12/28/19 14:00 01/04/20 13:34 DC 01/04/20 09:25 Chlorpromazine HCl (Thorazine) 150 mg STAT STAT IM 01/23/20 19:56 01/23/20 19:58 DC 01/23/20 19:59 Chlorpromazine HCl (Thorazine) 150 mg STAT STAT IM 01/27/20 22:16 01/27/20 22:17 DC 01/27/20 22:54 Chlorpromazine HCl (Thorazine) 150 mg TID PO 01/04/20 16:00 03/25/20 13:13 DC 02/25/20 17:20 Chlorpromazine HCl (Thorazine) 150 mg TID PO 03/28/20 21:00 Clozapine (Clozaril) 12.5 mg QHS PO 01/06/20 21:00 01/12/20 09:29 DC 01/11/20 20:13 Clozapine (Clozaril) 25 mg BID PO 01/14/20 21:00 01/18/20 09:33 DC 01/16/20 21:17 Clozapine (Clozaril) 25 mg QHS PO 01/12/20 21:00 01/14/20 10:58 DC 01/13/20 22:43 Diphenhydramine HCl (Benadryl) 50 mg Q4HP PRN PO ANXIETY/AGITATION 12/23/19 15:00 03/25/20 13:23 DC Diphenhydramine HCl (Benadryl) 50 mg Q4HP PRN PO ANXIETY/AGITATION 03/28/20 15:00 Diphenhydramine HCl (Benadryl) 50 mg STAT STAT IM 12/22/19 21:28 12/22/19 21:30 DC 12/22/19 22:03 Diphenhydramine HCl (Benadryl) 50 mg STAT STAT IM 01/23/20 01:38 01/23/20 01:40 DC 01/23/20 01:49 Diphenhydramine HCl (Benadryl) 50 mg STAT STAT IM 01/23/20 19:56 01/23/20 19:58 DC 01/23/20 20:00 Diphenhydramine HCl (Benadryl) 50 mg STAT STAT IM 01/26/20 16:38 01/26/20 16:42 DC 01/26/20 16:59 Diphenhydramine HCl (Benadryl) 50 mg STAT STAT IM 01/27/20 20:17 01/27/20 20:20 DC 01/27/20 20:32 Diphenhydramine HCl (Benadryl) 50 mg STAT STAT IM 01/31/20 20:14 01/31/20 20:16 DC 01/31/20 20:21 Diphenhydramine HCl (Benadryl) 50 mg STAT STAT IM 02/02/20 13:33 02/02/20 13:37 DC 02/02/20 13:45 Diphenhydramine HCl (Benadryl) 50 mg STAT STAT IM 02/02/20 16:52 02/02/20 16:55 DC 02/02/20 17:09 Diphenhydramine HCl (Benadryl) 50 mg STAT STAT IM 02/15/20 14:29 02/15/20 14:30 DC 02/15/20 14:51 Docusate Sodium (Colace) 100 mg DAILY PO 01/08/20 09:00 02/07/20 08:59 DC 02/03/20 10:23 Fluphenazine HCl (Prolixin) 10 mg BID PO 12/23/19 09:00 12/28/19 09:42 DC Haloperidol (Haldol) 5 mg BID PO 01/18/20 09:00 03/25/20 13:22 DC 02/19/20 19:56 Haloperidol (Haldol) 5 mg BID PO 03/28/20 21:00 Haloperidol (Haldol) 5 mg STAT STAT IM 02/05/20 14:41 02/05/20 14:42 DC 02/05/20 14:50 Haloperidol (Haldol) 10 mg STAT STAT IM 01/23/20 01:38 01/23/20 01:40 DC 01/23/20 01:49 Haloperidol (Haldol) 10 mg STAT STAT IM 01/23/20 21:42 01/23/20 21:44 DC 01/23/20 21:55 Haloperidol (Haldol) 10 mg STAT STAT IM 01/24/20 23:45 01/24/20 23:47 DC 01/25/20 00:04 Haloperidol (Haldol) 10 mg STAT STAT IM 01/25/20 02:22 01/25/20 02:24 DC 01/25/20 02:27 Haloperidol (Haldol) 10 mg STAT STAT IM 01/26/20 16:50 01/26/20 16:52 DC 01/26/20 16:58 Haloperidol (Haldol) 10 mg STAT STAT IM 01/27/20 20:17 01/27/20 20:20 DC 01/27/20 20:32 Haloperidol (Haldol) 10 mg STAT STAT IM 01/31/20 20:14 01/31/20 20:16 DC 01/31/20 20:21 Haloperidol (Haldol) 10 mg STAT STAT IM 02/01/20 19:35 02/01/20 19:37 DC 02/01/20 19:41 Haloperidol (Haldol) 10 mg STAT STAT IM 02/02/20 13:33 02/02/20 13:37 DC 02/02/20 13:46 Haloperidol (Haldol) 10 mg STAT STAT IM 02/02/20 16:52 02/02/20 16:55 DC 02/02/20 17:09 Haloperidol (Haldol) 10 mg STAT STAT PO 01/26/20 16:38 01/26/20 16:52 DC Levothyroxine Sodium (Synthroid) 100 mcg DAILY@06 PO 12/24/19 06:00 03/25/20 13:23 DC 01/17/20 06:17 Levothyroxine Sodium (Synthroid) 100 mcg DAILY@06 PO 03/29/20 06:00 [place] Carbonate (Eskalith Oral Solution) 300 mg BID PO 12/23/19 09:00 12/28/19 09:41 DC 12/28/19 09:35 [place]ish Carbonate (Eskalith Oral Solution) 450 mg BID PO 12/28/19 21:00 12/31/19 10:58 DC 12/31/19 08:37 Dish Carbonate (Dish Carbonate) 450 mg BID PO 12/31/19 21:00 03/28/20 07:14 DC 02/03/20 10:22 Dish Carbonate (Dish Carbonate) 450 mg BID PO 03/28/20 21:00 Lorazepam (Ativan) 1 mg STAT STAT IM 01/24/20 23:45 01/24/20 23:47 DC 01/25/20 00:04 Lorazepam (Ativan) 1 mg STAT STAT IM 02/06/20 14:47 02/06/20 14:49 DC 02/06/20 14:54 Lorazepam (Ativan) 2 mg STAT STAT IM 01/23/20 01:38 01/23/20 01:40 DC 01/23/20 01:49 Lorazepam (Ativan) 2 mg STAT STAT IM 01/23/20 21:42 01/23/20 21:44 DC 01/23/20 21:56 Lorazepam (Ativan) 2 mg STAT STAT IM 01/26/20 16:38 01/26/20 16:42 DC 01/26/20 16:59 Lorazepam (Ativan) 2 mg STAT STAT IM 01/27/20 20:17 01/27/20 20:20 DC 01/27/20 20:31 Lorazepam (Ativan) 2 mg STAT STAT IM 01/31/20 20:14 01/31/20 20:16 DC 01/31/20 20:21 Lorazepam (Ativan) 2 mg STAT STAT IM 02/01/20 19:35 02/01/20 19:37 DC 02/01/20 19:41 Lorazepam (Ativan) 2 mg STAT STAT IM 02/02/20 13:33 02/02/20 13:37 DC 02/02/20 13:46 Lorazepam (Ativan) 2 mg STAT STAT IM 02/02/20 16:52 02/02/20 16:55 DC 02/02/20 17:09 Lorazepam (Ativan) 2 mg STAT STAT IM 02/05/20 16:29 02/05/20 16:34 DC 02/05/20 16:38 Magnesium Hydroxide (Milk Of Magnesia) 30 ml DAILYPRN PRN PO CONSTIPATION 12/23/19 01:00 03/25/20 13:23 DC Magnesium Hydroxide (Milk Of Magnesia) 30 ml DAILYPRN PRN PO CONSTIPATION 03/28/20 15:00 Miscellaneous (Unresolved Clarification Entry) SEE LABEL COMMENTS DAILY XX 01/21/20 09:00 01/21/20 08:04 DC Miscellaneous (Unresolved Clarification Entry) SEE LABEL COMMENTS DAILY XX 01/30/20 09:00 01/30/20 13:01 DC Miscellaneous (Unresolved Clarification Entry) SEE LABEL COMMENTS DAILY XX 02/02/20 09:00 02/04/20 09:30 DC Miscellaneous (Unresolved Clarification Entry) SEE LABEL COMMENTS DAILY XX 02/19/20 09:00 02/20/20 13:13 DC Miscellaneous (Unresolved Clarification Entry) SEE LABEL COMMENTS DAILY XX 02/16/20 09:00 02/16/20 09:59 DC Trazodone HCl (Desyrel) 50 mg QHSP PRN PO INSOMNIA 12/23/19 01:00 03/25/20 13:23 DC 02/29/20 22:53 Trazodone HCl (Desyrel) 50 mg QHSP PRN PO INSOMNIA 03/28/20 15:00 Allergies Coded Allergies: Sulfa (Sulfonamide Antibiotics) (Verified Allergy, Severe, hives, 04/25/19) amoxicillin (Verified Allergy, Intermediate, rash, 04/25/19) azithromycin (Verified Allergy, Intermediate, rash, 04/25/19) LYRIC REID DO Mar 29, 2020 08:38
--- NOTE | 2020-03-29 08:42 | MHIPNPDOC ---
[facility] Progress Note Progress Note DATE OF SERVICE: 03/29/20 Subjective HPI: Latrice presents today for concerns regarding her discharge plan. Patient reports a good sleep schedule. She denies going to court. Objective stays undersheets, doesn't engage with any interview Assessment Plan Patient is scheduled for a court visit Friday. Current Medications Current Medications Medications (Trade) Dose Ordered Sig/Ruth Route PRN Reason Start Time Stop Time Status Last Admin Dose Admin Acetaminophen (Tylenol Tab) 650 mg Q6HP PRN PO HEADACHE or DISCOMFORT 12/23/19 01:00 03/25/20 13:23 DC 02/03/20 14:04 Acetaminophen (Tylenol Tab) 650 mg Q6HP PRN PO HEADACHE OR DISCOMFORT 03/28/20 15:00 Al Hydrox/Mg Hydrox/Simethicone (Mylanta) 30 ml Q4HP PRN PO HEARTBURN/INDIGESTION 12/23/19 01:00 03/25/20 13:23 DC Al Hydrox/Mg Hydrox/Simethicone (Mylanta) 30 ml Q4HP PRN PO HEARTBURN/INDIGESTION 03/28/20 15:00 Chlorpromazine HCl (Thorazine) 50 mg STAT STAT IM 02/01/20 21:01 02/01/20 21:03 DC 02/01/20 21:07 Chlorpromazine HCl (Thorazine) 50 mg STAT STAT IM 02/05/20 16:29 02/05/20 16:34 DC 02/05/20 16:38 Chlorpromazine HCl (Thorazine) 50 mg STAT STAT IM 02/06/20 14:47 02/06/20 14:49 DC 02/06/20 14:54 Chlorpromazine HCl (Thorazine) 100 mg Q6HP PRN PO AGITATION 12/28/19 14:00 12/28/19 14:00 DC Chlorpromazine HCl (Thorazine) 100 mg STAT STAT IM 12/29/19 13:02 12/29/19 13:04 DC 12/29/19 13:32 Chlorpromazine HCl (Thorazine) 100 mg STAT STAT IM 01/31/20 21:38 01/31/20 21:40 DC 01/31/20 21:42 Chlorpromazine HCl (Thorazine) 150 mg Q6HP PRN PO AGITATION/anxiety 12/28/19 14:00 01/04/20 13:34 DC 01/04/20 09:25 Chlorpromazine HCl (Thorazine) 150 mg STAT STAT IM 01/23/20 19:56 01/23/20 19:58 DC 01/23/20 19:59 Chlorpromazine HCl (Thorazine) 150 mg STAT STAT IM 01/27/20 22:16 01/27/20 22:17 DC 01/27/20 22:54 Chlorpromazine HCl (Thorazine) 150 mg TID PO 01/04/20 16:00 03/25/20 13:13 DC 02/25/20 17:20 Chlorpromazine HCl (Thorazine) 150 mg TID PO 03/28/20 21:00 Clozapine (Clozaril) 12.5 mg QHS PO 01/06/20 21:00 01/12/20 09:29 DC 01/11/20 20:13 Clozapine (Clozaril) 25 mg BID PO 01/14/20 21:00 01/18/20 09:33 DC 01/16/20 21:17 Clozapine (Clozaril) 25 mg QHS PO 01/12/20 21:00 01/14/20 10:58 DC 01/13/20 22:43 Diphenhydramine HCl (Benadryl) 50 mg Q4HP PRN PO ANXIETY/AGITATION 12/23/19 15:00 03/25/20 13:23 DC Diphenhydramine HCl (Benadryl) 50 mg Q4HP PRN PO ANXIETY/AGITATION 03/28/20 15:00 Diphenhydramine HCl (Benadryl) 50 mg STAT STAT IM 12/22/19 21:28 12/22/19 21:30 DC 12/22/19 22:03 Diphenhydramine HCl (Benadryl) 50 mg STAT STAT IM 01/23/20 01:38 01/23/20 01:40 DC 01/23/20 01:49 Diphenhydramine HCl (Benadryl) 50 mg STAT STAT IM 01/23/20 19:56 01/23/20 19:58 DC 01/23/20 20:00 Diphenhydramine HCl (Benadryl) 50 mg STAT STAT IM 01/26/20 16:38 01/26/20 16:42 DC 01/26/20 16:59 Diphenhydramine HCl (Benadryl) 50 mg STAT STAT IM 01/27/20 20:17 01/27/20 20:20 DC 01/27/20 20:32 Diphenhydramine HCl (Benadryl) 50 mg STAT STAT IM 01/31/20 20:14 01/31/20 20:16 DC 01/31/20 20:21 Diphenhydramine HCl (Benadryl) 50 mg STAT STAT IM 02/02/20 13:33 02/02/20 13:37 DC 02/02/20 13:45 Diphenhydramine HCl (Benadryl) 50 mg STAT STAT IM 02/02/20 16:52 02/02/20 16:55 DC 02/02/20 17:09 Diphenhydramine HCl (Benadryl) 50 mg STAT STAT IM 02/15/20 14:29 02/15/20 14:30 DC 02/15/20 14:51 Docusate Sodium (Colace) 100 mg DAILY PO 01/08/20 09:00 02/07/20 08:59 DC 02/03/20 10:23 Fluphenazine HCl (Prolixin) 10 mg BID PO 12/23/19 09:00 12/28/19 09:42 DC Haloperidol (Haldol) 5 mg BID PO 01/18/20 09:00 03/25/20 13:22 DC 02/19/20 19:56 Haloperidol (Haldol) 5 mg BID PO 03/28/20 21:00 Haloperidol (Haldol) 5 mg STAT STAT IM 02/05/20 14:41 02/05/20 14:42 DC 02/05/20 14:50 Haloperidol (Haldol) 10 mg STAT STAT IM 01/23/20 01:38 01/23/20 01:40 DC 01/23/20 01:49 Haloperidol (Haldol) 10 mg STAT STAT IM 01/23/20 21:42 01/23/20 21:44 DC 01/23/20 21:55 Haloperidol (Haldol) 10 mg STAT STAT IM 01/24/20 23:45 01/24/20 23:47 DC 01/25/20 00:04 Haloperidol (Haldol) 10 mg STAT STAT IM 01/25/20 02:22 01/25/20 02:24 DC 01/25/20 02:27 Haloperidol (Haldol) 10 mg STAT STAT IM 01/26/20 16:50 01/26/20 16:52 DC 01/26/20 16:58 Haloperidol (Haldol) 10 mg STAT STAT IM 01/27/20 20:17 01/27/20 20:20 DC 01/27/20 20:32 Haloperidol (Haldol) 10 mg STAT STAT IM 01/31/20 20:14 01/31/20 20:16 DC 01/31/20 20:21 Haloperidol (Haldol) 10 mg STAT STAT IM 02/01/20 19:35 02/01/20 19:37 DC 02/01/20 19:41 Haloperidol (Haldol) 10 mg STAT STAT IM 02/02/20 13:33 02/02/20 13:37 DC 02/02/20 13:46 Haloperidol (Haldol) 10 mg STAT STAT IM 02/02/20 16:52 02/02/20 16:55 DC 02/02/20 17:09 Haloperidol (Haldol) 10 mg STAT STAT PO 01/26/20 16:38 01/26/20 16:52 DC Levothyroxine Sodium (Synthroid) 100 mcg DAILY@06 PO 12/24/19 06:00 03/25/20 13:23 DC 01/17/20 06:17 Levothyroxine Sodium (Synthroid) 100 mcg DAILY@06 PO 03/29/20 06:00 [place] Carbonate (Eskalith Oral Solution) 300 mg BID PO 12/23/19 09:00 12/28/19 09:41 DC 12/28/19 09:35 [place] Carbonate (Eskalith Oral Solution) 450 mg BID PO 12/28/19 21:00 12/31/19 10:58 DC 12/31/19 08:37 [place] Carbonate (Musella Carbonate) 450 mg BID PO 12/31/19 21:00 03/28/20 07:14 DC 02/03/20 10:22 [place] Carbonate ([place] Carbonate) 450 mg BID PO 03/28/20 21:00 Lorazepam (Ativan) 1 mg STAT STAT IM 01/24/20 23:45 01/24/20 23:47 DC 01/25/20 00:04 Lorazepam (Ativan) 1 mg STAT STAT IM 02/06/20 14:47 02/06/20 14:49 DC 02/06/20 14:54 Lorazepam (Ativan) 2 mg STAT STAT IM 01/23/20 01:38 01/23/20 01:40 DC 01/23/20 01:49 Lorazepam (Ativan) 2 mg STAT STAT IM 01/23/20 21:42 01/23/20 21:44 DC 01/23/20 21:56 Lorazepam (Ativan) 2 mg STAT STAT IM 01/26/20 16:38 01/26/20 16:42 DC 01/26/20 16:59 Lorazepam (Ativan) 2 mg STAT STAT IM 01/27/20 20:17 01/27/20 20:20 DC 01/27/20 20:31 Lorazepam (Ativan) 2 mg STAT STAT IM 01/31/20 20:14 01/31/20 20:16 DC 01/31/20 20:21 Lorazepam (Ativan) 2 mg STAT STAT IM 02/01/20 19:35 02/01/20 19:37 DC 02/01/20 19:41 Lorazepam (Ativan) 2 mg STAT STAT IM 02/02/20 13:33 02/02/20 13:37 DC 02/02/20 13:46 Lorazepam (Ativan) 2 mg STAT STAT IM 02/02/20 16:52 02/02/20 16:55 DC 02/02/20 17:09 Lorazepam (Ativan) 2 mg STAT STAT IM 02/05/20 16:29 02/05/20 16:34 DC 02/05/20 16:38 Magnesium Hydroxide (Milk Of Magnesia) 30 ml DAILYPRN PRN PO CONSTIPATION 12/23/19 01:00 03/25/20 13:23 DC Magnesium Hydroxide (Milk Of Magnesia) 30 ml DAILYPRN PRN PO CONSTIPATION 03/28/20 15:00 Miscellaneous (Unresolved Clarification Entry) SEE LABEL COMMENTS DAILY XX 01/21/20 09:00 01/21/20 08:04 DC Miscellaneous (Unresolved Clarification Entry) SEE LABEL COMMENTS DAILY XX 01/30/20 09:00 01/30/20 13:01 DC Miscellaneous (Unresolved Clarification Entry) SEE LABEL COMMENTS DAILY XX 02/02/20 09:00 02/04/20 09:30 DC Miscellaneous (Unresolved Clarification Entry) SEE LABEL COMMENTS DAILY XX 02/19/20 09:00 02/20/20 13:13 DC Miscellaneous (Unresolved Clarification Entry) SEE LABEL COMMENTS DAILY XX 02/16/20 09:00 02/16/20 09:59 DC Trazodone HCl (Desyrel) 50 mg QHSP PRN PO INSOMNIA 12/23/19 01:00 03/25/20 13:23 DC 02/29/20 22:53 Trazodone HCl (Desyrel) 50 mg QHSP PRN PO INSOMNIA 03/28/20 15:00 Allergies Coded Allergies: Sulfa (Sulfonamide Antibiotics) (Verified Allergy, Severe, hives, 04/25/19) amoxicillin (Verified Allergy, Intermediate, rash, 04/25/19) azithromycin (Verified Allergy, Intermediate, rash, 04/25/19) LYRIC REID DO Mar 29, 2020 08:42
[2020-03-29] MEDS: haloperidoL 5 MG TAB PO SCH ×2 (09:00→21:00)
[2020-03-29] MEDS: LITHIUM CARBONATE 150 MG CAP PO SCH ×2 (09:00→21:00)
[2020-03-29] MEDS: chlorproMAZINE 25 MG TABLET PO SCH ×3 (09:00→21:00)
[2020-03-29] MEDS ORDERED: diphenhydrAMINE 50MG/ML VIAL (J1200) IM ONE (20:45)
[2020-03-30] MEDS: LEVOTHYROXINE 100MCG TABLET (0.1MG) PO SCH (05:59)
[2020-03-30] MEDS: chlorproMAZINE 25 MG TABLET PO SCH ×3 (09:00→21:00)
[2020-03-30] MEDS: haloperidoL 5 MG TAB PO SCH ×2 (09:00→21:00)
[2020-03-30] MEDS: LITHIUM CARBONATE 150 MG CAP PO SCH ×2 (09:00→21:00)
--- NOTE | 2020-03-30 11:48 | MHIPNPDOC ---
[facility] Progress Note Progress Note DATE OF SERVICE: 03/30/20 Subjective HPI: The patient is too ill to meet with today, and she is quite distorted, speaking so quickly that shes unintelligible. SHes continue on 1:1. Shes asked for a razor report. Shes not going to court, and continually asked about discharge. Objective Appearance: Appears to be stated age. Well nourished. Well groomed. Thought Form: Non linear. Psychotic. Incoherent. Judgement: Poor. Insight: Poor. Assessment F25.0 Schizoaffective disorder, bipolar type Plan Continue to pursue treatment over rejection, and well continue to offer medication. Shes hasnt coded recently, however will remain on a 1:1 as she is quite unpredictable. Vital Signs Vital Signs Date Time Temp Pulse Resp B/P (MAP) Pulse Ox O2 Delivery O2 Flow Rate FiO2 03/30/20 09:40 Room Air Current Medications Current Medications Medications (Trade) Dose Ordered Sig/Ruth Route PRN Reason Start Time Stop Time Status Last Admin Dose Admin Acetaminophen (Tylenol Tab) 650 mg Q6HP PRN PO HEADACHE or DISCOMFORT 12/23/19 01:00 03/25/20 13:23 DC 02/03/20 14:04 Acetaminophen (Tylenol Tab) 650 mg Q6HP PRN PO HEADACHE OR DISCOMFORT 03/28/20 15:00 Al Hydrox/Mg Hydrox/Simethicone (Mylanta) 30 ml Q4HP PRN PO HEARTBURN/INDIGESTION 12/23/19 01:00 03/25/20 13:23 DC Al Hydrox/Mg Hydrox/Simethicone (Mylanta) 30 ml Q4HP PRN PO HEARTBURN/INDIGESTION 03/28/20 15:00 Chlorpromazine HCl (Thorazine) 50 mg STAT STAT IM 02/01/20 21:01 02/01/20 21:03 DC 02/01/20 21:07 Chlorpromazine HCl (Thorazine) 50 mg STAT STAT IM 02/05/20 16:29 02/05/20 16:34 DC 02/05/20 16:38 Chlorpromazine HCl (Thorazine) 50 mg STAT STAT IM 02/06/20 14:47 02/06/20 14:49 DC 02/06/20 14:54 Chlorpromazine HCl (Thorazine) 100 mg Q6HP PRN PO AGITATION 12/28/19 14:00 12/28/19 14:00 DC Chlorpromazine HCl (Thorazine) 100 mg STAT STAT IM 12/29/19 13:02 12/29/19 13:04 DC 12/29/19 13:32 Chlorpromazine HCl (Thorazine) 100 mg STAT STAT IM 01/31/20 21:38 01/31/20 21:40 DC 01/31/20 21:42 Chlorpromazine HCl (Thorazine) 150 mg Q6HP PRN PO AGITATION/anxiety 12/28/19 14:00 01/04/20 13:34 DC 01/04/20 09:25 Chlorpromazine HCl (Thorazine) 150 mg STAT STAT IM 01/23/20 19:56 01/23/20 19:58 DC 01/23/20 19:59 Chlorpromazine HCl (Thorazine) 150 mg STAT STAT IM 01/27/20 22:16 01/27/20 22:17 DC 01/27/20 22:54 Chlorpromazine HCl (Thorazine) 150 mg TID PO 01/04/20 16:00 03/25/20 13:13 DC 02/25/20 17:20 Chlorpromazine HCl (Thorazine) 150 mg TID PO 03/28/20 21:00 Clozapine (Clozaril) 12.5 mg QHS PO 01/06/20 21:00 01/12/20 09:29 DC 01/11/20 20:13 Clozapine (Clozaril) 25 mg BID PO 01/14/20 21:00 01/18/20 09:33 DC 01/16/20 21:17 Clozapine (Clozaril) 25 mg QHS PO 01/12/20 21:00 01/14/20 10:58 DC 01/13/20 22:43 Diphenhydramine HCl (Benadryl) 50 mg Q4HP PRN PO ANXIETY/AGITATION 12/23/19 15:00 03/25/20 13:23 DC Diphenhydramine HCl (Benadryl) 50 mg Q4HP PRN PO ANXIETY/AGITATION 03/28/20 15:00 Diphenhydramine HCl (Benadryl) 50 mg STAT STAT IM 12/22/19 21:28 12/22/19 21:30 DC 12/22/19 22:03 Diphenhydramine HCl (Benadryl) 50 mg STAT STAT IM 01/23/20 01:38 01/23/20 01:40 DC 01/23/20 01:49 Diphenhydramine HCl (Benadryl) 50 mg STAT STAT IM 01/23/20 19:56 01/23/20 19:58 DC 01/23/20 20:00 Diphenhydramine HCl (Benadryl) 50 mg STAT STAT IM 01/26/20 16:38 01/26/20 16:42 DC 01/26/20 16:59 Diphenhydramine HCl (Benadryl) 50 mg STAT STAT IM 01/27/20 20:17 01/27/20 20:20 DC 01/27/20 20:32 Diphenhydramine HCl (Benadryl) 50 mg STAT STAT IM 01/31/20 20:14 01/31/20 20:16 DC 01/31/20 20:21 Diphenhydramine HCl (Benadryl) 50 mg STAT STAT IM 02/02/20 13:33 02/02/20 13:37 DC 02/02/20 13:45 Diphenhydramine HCl (Benadryl) 50 mg STAT STAT IM 02/02/20 16:52 02/02/20 16:55 DC 02/02/20 17:09 Diphenhydramine HCl (Benadryl) 50 mg STAT STAT IM 02/15/20 14:29 02/15/20 14:30 DC 02/15/20 14:51 Docusate Sodium (Colace) 100 mg DAILY PO 01/08/20 09:00 02/07/20 08:59 DC 02/03/20 10:23 Fluphenazine HCl (Prolixin) 10 mg BID PO 12/23/19 09:00 12/28/19 09:42 DC Haloperidol (Haldol) 5 mg BID PO 01/18/20 09:00 03/25/20 13:22 DC 02/19/20 19:56 Haloperidol (Haldol) 5 mg BID PO 03/28/20 21:00 Haloperidol (Haldol) 5 mg STAT STAT IM 02/05/20 14:41 02/05/20 14:42 DC 02/05/20 14:50 Haloperidol (Haldol) 10 mg STAT STAT IM 01/23/20 01:38 01/23/20 01:40 DC 01/23/20 01:49 Haloperidol (Haldol) 10 mg STAT STAT IM 01/23/20 21:42 01/23/20 21:44 DC 01/23/20 21:55 Haloperidol (Haldol) 10 mg STAT STAT IM 01/24/20 23:45 01/24/20 23:47 DC 01/25/20 00:04 Haloperidol (Haldol) 10 mg STAT STAT IM 01/25/20 02:22 01/25/20 02:24 DC 01/25/20 02:27 Haloperidol (Haldol) 10 mg STAT STAT IM 01/26/20 16:50 01/26/20 16:52 DC 01/26/20 16:58 Haloperidol (Haldol) 10 mg STAT STAT IM 01/27/20 20:17 01/27/20 20:20 DC 01/27/20 20:32 Haloperidol (Haldol) 10 mg STAT STAT IM 01/31/20 20:14 01/31/20 20:16 DC 01/31/20 20:21 Haloperidol (Haldol) 10 mg STAT STAT IM 02/01/20 19:35 02/01/20 19:37 DC 02/01/20 19:41 Haloperidol (Haldol) 10 mg STAT STAT IM 02/02/20 13:33 02/02/20 13:37 DC 02/02/20 13:46 Haloperidol (Haldol) 10 mg STAT STAT IM 02/02/20 16:52 02/02/20 16:55 DC 02/02/20 17:09 Haloperidol (Haldol) 10 mg STAT STAT PO 01/26/20 16:38 01/26/20 16:52 DC Levothyroxine Sodium (Synthroid) 100 mcg DAILY@06 PO 12/24/19 06:00 03/25/20 13:23 DC 01/17/20 06:17 Levothyroxine Sodium (Synthroid) 100 mcg DAILY@06 PO 03/29/20 06:00 [place] Carbonate (Eskalith Oral Solution) 300 mg BID PO 12/23/19 09:00 12/28/19 09:41 DC 12/28/19 09:35 [place] Carbonate (Eskalith Oral Solution) 450 mg BID PO 12/28/19 21:00 12/31/19 10:58 DC 12/31/19 08:37 [place] Carbonate ([place] Carbonate) 450 mg BID PO 12/31/19 21:00 03/28/20 07:14 DC 02/03/20 10:22 [place] Carbonate ([place] Carbonate) 450 mg BID PO 03/28/20 21:00 Lorazepam (Ativan) 1 mg STAT STAT IM 01/24/20 23:45 01/24/20 23:47 DC 01/25/20 00:04 Lorazepam (Ativan) 1 mg STAT STAT IM 02/06/20 14:47 02/06/20 14:49 DC 02/06/20 14:54 Lorazepam (Ativan) 2 mg STAT STAT IM 01/23/20 01:38 01/23/20 01:40 DC 01/23/20 01:49 Lorazepam (Ativan) 2 mg STAT STAT IM 01/23/20 21:42 01/23/20 21:44 DC 01/23/20 21:56 Lorazepam (Ativan) 2 mg STAT STAT IM 01/26/20 16:38 01/26/20 16:42 DC 01/26/20 16:59 Lorazepam (Ativan) 2 mg STAT STAT IM 01/27/20 20:17 01/27/20 20:20 DC 01/27/20 20:31 Lorazepam (Ativan) 2 mg STAT STAT IM 01/31/20 20:14 01/31/20 20:16 DC 01/31/20 20:21 Lorazepam (Ativan) 2 mg STAT STAT IM 02/01/20 19:35 02/01/20 19:37 DC 02/01/20 19:41 Lorazepam (Ativan) 2 mg STAT STAT IM 02/02/20 13:33 02/02/20 13:37 DC 02/02/20 13:46 Lorazepam (Ativan) 2 mg STAT STAT IM 02/02/20 16:52 02/02/20 16:55 DC 02/02/20 17:09 Lorazepam (Ativan) 2 mg STAT STAT IM 02/05/20 16:29 02/05/20 16:34 DC 02/05/20 16:38 Magnesium Hydroxide (Milk Of Magnesia) 30 ml DAILYPRN PRN PO CONSTIPATION 12/23/19 01:00 03/25/20 13:23 DC Magnesium Hydroxide (Milk Of Magnesia) 30 ml DAILYPRN PRN PO CONSTIPATION 03/28/20 15:00 Miscellaneous (Unresolved Clarification Entry) SEE LABEL COMMENTS DAILY XX 01/21/20 09:00 01/21/20 08:04 DC Miscellaneous (Unresolved Clarification Entry) SEE LABEL COMMENTS DAILY XX 01/30/20 09:00 01/30/20 13:01 DC Miscellaneous (Unresolved Clarification Entry) SEE LABEL COMMENTS DAILY XX 02/02/20 09:00 02/04/20 09:30 DC Miscellaneous (Unresolved Clarification Entry) SEE LABEL COMMENTS DAILY XX 02/19/20 09:00 02/20/20 13:13 DC Miscellaneous (Unresolved Clarification Entry) SEE LABEL COMMENTS DAILY XX 02/16/20 09:00 02/16/20 09:59 DC Trazodone HCl (Desyrel) 50 mg QHSP PRN PO INSOMNIA 12/23/19 01:00 03/25/20 13:23 DC 02/29/20 22:53 Trazodone HCl (Desyrel) 50 mg QHSP PRN PO INSOMNIA 03/28/20 15:00 Allergies Coded Allergies: Sulfa (Sulfonamide Antibiotics) (Verified Allergy, Severe, hives, 04/25/19) amoxicillin (Verified Allergy, Intermediate, rash, 04/25/19) azithromycin (Verified Allergy, Intermediate, rash, 04/25/19) LYRIC REID DO Mar 30, 2020 11:48
[2020-03-30] MEDS ORDERED: diphenhydrAMINE 50MG/ML VIAL (J1200) IM ONE (21:30)
[2020-03-31] MEDS: LEVOTHYROXINE 100MCG TABLET (0.1MG) PO SCH (06:00)
--- NOTE | 2020-03-31 08:02 | MHIPNPDOC ---
[facility] Progress Note Progress Note DATE OF SERVICE: 03/31/20 Subjective HPI: The patient is unable to be met with, however, she is highly intrusive talking to this provider multiple times. So highly talkative that shes incoherent in nature. The patient has episodes of agitation, but remains significantly intrusive with very big difficulties in any kind of reasonable thought. Objective Speech: Hyper-verbal. Thought Form: Tangential. Nonlinear. Perception: Grossly psychotic. Judgement: Poor judgement. Insight: Poor insight. Assessment F25.0 Schizoaffective disorder, bipolar type Plan Continue with treatment over objection which will be held at 2 PM. Vital Signs Vital Signs Date Time Temp Pulse Resp B/P (MAP) Pulse Ox O2 Delivery O2 Flow Rate FiO2 03/30/20 09:40 Room Air Current Medications Current Medications Medications (Trade) Dose Ordered Sig/Ruth Route PRN Reason Start Time Stop Time Status Last Admin Dose Admin Acetaminophen (Tylenol Tab) 650 mg Q6HP PRN PO HEADACHE or DISCOMFORT 12/23/19 01:00 03/25/20 13:23 DC 02/03/20 14:04 Acetaminophen (Tylenol Tab) 650 mg Q6HP PRN PO HEADACHE OR DISCOMFORT 03/28/20 15:00 Al Hydrox/Mg Hydrox/Simethicone (Mylanta) 30 ml Q4HP PRN PO HEARTBURN/INDIGESTION 12/23/19 01:00 03/25/20 13:23 DC Al Hydrox/Mg Hydrox/Simethicone (Mylanta) 30 ml Q4HP PRN PO HEARTBURN/INDIGESTION 03/28/20 15:00 Chlorpromazine HCl (Thorazine) 50 mg STAT STAT IM 02/01/20 21:01 02/01/20 21:03 DC 02/01/20 21:07 Chlorpromazine HCl (Thorazine) 50 mg STAT STAT IM 02/05/20 16:29 02/05/20 16:34 DC 02/05/20 16:38 Chlorpromazine HCl (Thorazine) 50 mg STAT STAT IM 02/06/20 14:47 02/06/20 14:49 DC 02/06/20 14:54 Chlorpromazine HCl (Thorazine) 100 mg Q6HP PRN PO AGITATION 12/28/19 14:00 12/28/19 14:00 DC Chlorpromazine HCl (Thorazine) 100 mg STAT STAT IM 12/29/19 13:02 12/29/19 13:04 DC 12/29/19 13:32 Chlorpromazine HCl (Thorazine) 100 mg STAT STAT IM 01/31/20 21:38 01/31/20 21:40 DC 01/31/20 21:42 Chlorpromazine HCl (Thorazine) 150 mg Q6HP PRN PO AGITATION/anxiety 12/28/19 14:00 01/04/20 13:34 DC 01/04/20 09:25 Chlorpromazine HCl (Thorazine) 150 mg STAT STAT IM 01/23/20 19:56 01/23/20 19:58 DC 01/23/20 19:59 Chlorpromazine HCl (Thorazine) 150 mg STAT STAT IM 01/27/20 22:16 01/27/20 22:17 DC 01/27/20 22:54 Chlorpromazine HCl (Thorazine) 150 mg TID PO 01/04/20 16:00 03/25/20 13:13 DC 02/25/20 17:20 Chlorpromazine HCl (Thorazine) 150 mg TID PO 03/28/20 21:00 Clozapine (Clozaril) 12.5 mg QHS PO 01/06/20 21:00 01/12/20 09:29 DC 01/11/20 20:13 Clozapine (Clozaril) 25 mg BID PO 01/14/20 21:00 01/18/20 09:33 DC 01/16/20 21:17 Clozapine (Clozaril) 25 mg QHS PO 01/12/20 21:00 01/14/20 10:58 DC 01/13/20 22:43 Diphenhydramine HCl (Benadryl) 50 mg Q4HP PRN PO ANXIETY/AGITATION 12/23/19 15:00 03/25/20 13:23 DC Diphenhydramine HCl (Benadryl) 50 mg Q4HP PRN PO ANXIETY/AGITATION 03/28/20 15:00 Diphenhydramine HCl (Benadryl) 50 mg STAT STAT IM 12/22/19 21:28 12/22/19 21:30 DC 12/22/19 22:03 Diphenhydramine HCl (Benadryl) 50 mg STAT STAT IM 01/23/20 01:38 01/23/20 01:40 DC 01/23/20 01:49 Diphenhydramine HCl (Benadryl) 50 mg STAT STAT IM 01/23/20 19:56 01/23/20 19:58 DC 01/23/20 20:00 Diphenhydramine HCl (Benadryl) 50 mg STAT STAT IM 01/26/20 16:38 01/26/20 16:42 DC 01/26/20 16:59 Diphenhydramine HCl (Benadryl) 50 mg STAT STAT IM 01/27/20 20:17 01/27/20 20:20 DC 01/27/20 20:32 Diphenhydramine HCl (Benadryl) 50 mg STAT STAT IM 01/31/20 20:14 01/31/20 20:16 DC 01/31/20 20:21 Diphenhydramine HCl (Benadryl) 50 mg STAT STAT IM 02/02/20 13:33 02/02/20 13:37 DC 02/02/20 13:45 Diphenhydramine HCl (Benadryl) 50 mg STAT STAT IM 02/02/20 16:52 02/02/20 16:55 DC 02/02/20 17:09 Diphenhydramine HCl (Benadryl) 50 mg STAT STAT IM 02/15/20 14:29 02/15/20 14:30 DC 02/15/20 14:51 Docusate Sodium (Colace) 100 mg DAILY PO 01/08/20 09:00 02/07/20 08:59 DC 02/03/20 10:23 Fluphenazine HCl (Prolixin) 10 mg BID PO 12/23/19 09:00 12/28/19 09:42 DC Haloperidol (Haldol) 5 mg BID PO 01/18/20 09:00 03/25/20 13:22 DC 02/19/20 19:56 Haloperidol (Haldol) 5 mg BID PO 03/28/20 21:00 Haloperidol (Haldol) 5 mg STAT STAT IM 02/05/20 14:41 02/05/20 14:42 DC 02/05/20 14:50 Haloperidol (Haldol) 10 mg STAT STAT IM 01/23/20 01:38 01/23/20 01:40 DC 01/23/20 01:49 Haloperidol (Haldol) 10 mg STAT STAT IM 01/23/20 21:42 01/23/20 21:44 DC 01/23/20 21:55 Haloperidol (Haldol) 10 mg STAT STAT IM 01/24/20 23:45 01/24/20 23:47 DC 01/25/20 00:04 Haloperidol (Haldol) 10 mg STAT STAT IM 01/25/20 02:22 01/25/20 02:24 DC 01/25/20 02:27 Haloperidol (Haldol) 10 mg STAT STAT IM 01/26/20 16:50 01/26/20 16:52 DC 01/26/20 16:58 Haloperidol (Haldol) 10 mg STAT STAT IM 01/27/20 20:17 01/27/20 20:20 DC 01/27/20 20:32 Haloperidol (Haldol) 10 mg STAT STAT IM 01/31/20 20:14 01/31/20 20:16 DC 01/31/20 20:21 Haloperidol (Haldol) 10 mg STAT STAT IM 02/01/20 19:35 02/01/20 19:37 DC 02/01/20 19:41 Haloperidol (Haldol) 10 mg STAT STAT IM 02/02/20 13:33 02/02/20 13:37 DC 02/02/20 13:46 Haloperidol (Haldol) 10 mg STAT STAT IM 02/02/20 16:52 02/02/20 16:55 DC 02/02/20 17:09 Haloperidol (Haldol) 10 mg STAT STAT PO 01/26/20 16:38 01/26/20 16:52 DC Levothyroxine Sodium (Synthroid) 100 mcg DAILY@06 PO 12/24/19 06:00 03/25/20 13:23 DC 01/17/20 06:17 Levothyroxine Sodium (Synthroid) 100 mcg DAILY@06 PO 03/29/20 06:00 [place] Carbonate (Eskalith Oral Solution) 300 mg BID PO 12/23/19 09:00 12/28/19 09:41 DC 12/28/19 09:35 [place] Carbonate (Eskalith Oral Solution) 450 mg BID PO 12/28/19 21:00 12/31/19 10:58 DC 12/31/19 08:37 [place] Carbonate ([place] Carbonate) 450 mg BID PO 12/31/19 21:00 03/28/20 07:14 DC 02/03/20 10:22 [place] Carbonate ([place] Carbonate) 450 mg BID PO 03/28/20 21:00 Lorazepam (Ativan) 1 mg STAT STAT IM 01/24/20 23:45 01/24/20 23:47 DC 01/25/20 00:04 Lorazepam (Ativan) 1 mg STAT STAT IM 02/06/20 14:47 02/06/20 14:49 DC 02/06/20 14:54 Lorazepam (Ativan) 2 mg STAT STAT IM 01/23/20 01:38 01/23/20 01:40 DC 01/23/20 01:49 Lorazepam (Ativan) 2 mg STAT STAT IM 01/23/20 21:42 01/23/20 21:44 DC 01/23/20 21:56 Lorazepam (Ativan) 2 mg STAT STAT IM 01/26/20 16:38 01/26/20 16:42 DC 01/26/20 16:59 Lorazepam (Ativan) 2 mg STAT STAT IM 01/27/20 20:17 01/27/20 20:20 DC 01/27/20 20:31 Lorazepam (Ativan) 2 mg STAT STAT IM 01/31/20 20:14 01/31/20 20:16 DC 01/31/20 20:21 Lorazepam (Ativan) 2 mg STAT STAT IM 02/01/20 19:35 02/01/20 19:37 DC 02/01/20 19:41 Lorazepam (Ativan) 2 mg STAT STAT IM 02/02/20 13:33 02/02/20 13:37 DC 02/02/20 13:46 Lorazepam (Ativan) 2 mg STAT STAT IM 02/02/20 16:52 02/02/20 16:55 DC 02/02/20 17:09 Lorazepam (Ativan) 2 mg STAT STAT IM 02/05/20 16:29 02/05/20 16:34 DC 02/05/20 16:38 Magnesium Hydroxide (Milk Of Magnesia) 30 ml DAILYPRN PRN PO CONSTIPATION 12/23/19 01:00 03/25/20 13:23 DC Magnesium Hydroxide (Milk Of Magnesia) 30 ml DAILYPRN PRN PO CONSTIPATION 03/28/20 15:00 Miscellaneous (Unresolved Clarification Entry) SEE LABEL COMMENTS DAILY XX 01/21/20 09:00 01/21/20 08:04 DC Miscellaneous (Unresolved Clarification Entry) SEE LABEL COMMENTS DAILY XX 01/30/20 09:00 01/30/20 13:01 DC Miscellaneous (Unresolved Clarification Entry) SEE LABEL COMMENTS DAILY XX 02/02/20 09:00 02/04/20 09:30 DC Miscellaneous (Unresolved Clarification Entry) SEE LABEL COMMENTS DAILY XX 02/19/20 09:00 02/20/20 13:13 DC Miscellaneous (Unresolved Clarification Entry) SEE LABEL COMMENTS DAILY XX 02/16/20 09:00 02/16/20 09:59 DC Trazodone HCl (Desyrel) 50 mg QHSP PRN PO INSOMNIA 12/23/19 01:00 03/25/20 13:23 DC 02/29/20 22:53 Trazodone HCl (Desyrel) 50 mg QHSP PRN PO INSOMNIA 03/28/20 15:00 Allergies Coded Allergies: Sulfa (Sulfonamide Antibiotics) (Verified Allergy, Severe, hives, 04/25/19) amoxicillin (Verified Allergy, Intermediate, rash, 04/25/19) azithromycin (Verified Allergy, Intermediate, rash, 04/25/19) LYRIC REID DO Mar 31, 2020 08:02
[2020-03-31] MEDS: chlorproMAZINE 25 MG TABLET PO SCH ×3 (09:00→21:00)
[2020-03-31] MEDS: LITHIUM CARBONATE 150 MG CAP PO SCH ×2 (09:00→21:00)
[2020-03-31] MEDS: haloperidoL 5 MG TAB PO SCH ×2 (09:00→21:00)
[2020-04-01] MEDS: LEVOTHYROXINE 100MCG TABLET (0.1MG) PO SCH (05:21)
[2020-04-01] MEDS ORDERED: diphenhydrAMINE 50MG/ML VIAL (J1200) IM STA ×2 (06:43→21:59)
[2020-04-01] MEDS ORDERED: HALOPERIDOL 5MG/ML VIAL (J1630 PER 1) IM STA ×2 (06:43→21:59)
[2020-04-01] MEDS: haloperidoL 5 MG TAB PO SCH ×2 (09:00→21:00)
[2020-04-01] MEDS: LITHIUM CARBONATE 150 MG CAP PO SCH ×2 (09:00→21:00)
[2020-04-01] MEDS: chlorproMAZINE 25 MG TABLET PO SCH ×3 (09:00→21:00)
[2020-04-02] MEDS: LEVOTHYROXINE 100MCG TABLET (0.1MG) PO SCH (05:08)
[2020-04-02] MEDS: haloperidoL 5 MG TAB PO SCH ×2 (09:00→21:00)
[2020-04-02] MEDS: LITHIUM CARBONATE 150 MG CAP PO SCH ×2 (09:00→21:00)
[2020-04-02] MEDS: chlorproMAZINE 25 MG TABLET PO SCH ×3 (09:00→21:00)
[2020-04-03] MEDS: LEVOTHYROXINE 100MCG TABLET (0.1MG) PO SCH (06:00)
[2020-04-03] MEDS: chlorproMAZINE 25 MG TABLET PO SCH ×3 (09:00→20:40)
[2020-04-03] MEDS: haloperidoL 5 MG TAB PO SCH ×2 (09:00→20:40)
[2020-04-03] MEDS: LITHIUM CARBONATE 150 MG CAP PO SCH ×2 (09:00→20:40)
--- NOTE | 2020-04-03 11:40 | MHIPNPDOC ---
[facility] [place] Note DATE OF SERVICE: 04/03/20 Subjective HPI: Patient is unable to be met with today. She is still quite distorted, asking if Im from [place]. Objective Behavior: Giggles and appropriately talks to self. Response to internal stimuli. Thought Form: Incoherent. Tangential. Judgement: Poor. Insight: Poor. Assessment F25.0 Schizoaffective disorder, bipolar type Plan Await final signed order for two more objections to then subsequently begin. Vital Signs Vital Signs Date Time Temp Pulse Resp B/P (MAP) Pulse Ox O2 Delivery O2 Flow Rate FiO2 04/03/20 09:01 Room Air Current Medications Current Medications Medications (Trade) Dose Ordered Sig/Ruth Route PRN Reason Start Time Stop Time Status Last Admin Dose Admin Acetaminophen (Tylenol Tab) 650 mg Q6HP PRN PO HEADACHE or DISCOMFORT 12/23/19 01:00 03/25/20 13:23 DC 02/03/20 14:04 Acetaminophen (Tylenol Tab) 650 mg Q6HP PRN PO HEADACHE OR DISCOMFORT 03/28/20 15:00 Al Hydrox/Mg Hydrox/Simethicone (Mylanta) 30 ml Q4HP PRN PO HEARTBURN/INDIGESTION 12/23/19 01:00 03/25/20 13:23 DC Al Hydrox/Mg Hydrox/Simethicone (Mylanta) 30 ml Q4HP PRN PO HEARTBURN/INDIGESTION 03/28/20 15:00 Chlorpromazine HCl (Thorazine) 50 mg STAT STAT IM 02/01/20 21:01 02/01/20 21:03 DC 02/01/20 21:07 Chlorpromazine HCl (Thorazine) 50 mg STAT STAT IM 02/05/20 16:29 02/05/20 16:34 DC 02/05/20 16:38 Chlorpromazine HCl (Thorazine) 50 mg STAT STAT IM 02/06/20 14:47 02/06/20 14:49 DC 02/06/20 14:54 Chlorpromazine HCl (Thorazine) 100 mg Q6HP PRN PO AGITATION 12/28/19 14:00 12/28/19 14:00 DC Chlorpromazine HCl (Thorazine) 100 mg STAT STAT IM 12/29/19 13:02 12/29/19 13:04 DC 12/29/19 13:32 Chlorpromazine HCl (Thorazine) 100 mg STAT STAT IM 01/31/20 21:38 01/31/20 21:40 DC 01/31/20 21:42 Chlorpromazine HCl (Thorazine) 150 mg Q6HP PRN PO AGITATION/anxiety 12/28/19 14:00 01/04/20 13:34 DC 01/04/20 09:25 Chlorpromazine HCl (Thorazine) 150 mg STAT STAT IM 01/23/20 19:56 01/23/20 19:58 DC 01/23/20 19:59 Chlorpromazine HCl (Thorazine) 150 mg STAT STAT IM 01/27/20 22:16 01/27/20 22:17 DC 01/27/20 22:54 Chlorpromazine HCl (Thorazine) 150 mg TID PO 01/04/20 16:00 03/25/20 13:13 DC 02/25/20 17:20 Chlorpromazine HCl (Thorazine) 150 mg TID PO 03/28/20 21:00 Clozapine (Clozaril) 12.5 mg QHS PO 01/06/20 21:00 01/12/20 09:29 DC 01/11/20 20:13 Clozapine (Clozaril) 25 mg BID PO 01/14/20 21:00 01/18/20 09:33 DC 01/16/20 21:17 Clozapine (Clozaril) 25 mg QHS PO 01/12/20 21:00 01/14/20 10:58 DC 01/13/20 22:43 Diphenhydramine HCl (Benadryl) 25 mg STAT STAT IM 04/01/20 21:59 04/01/20 22:01 DC 04/01/20 22:11 Diphenhydramine HCl (Benadryl) 50 mg Q4HP PRN PO ANXIETY/AGITATION 12/23/19 15:00 03/25/20 13:23 DC Diphenhydramine HCl (Benadryl) 50 mg Q4HP PRN PO ANXIETY/AGITATION 03/28/20 15:00 Diphenhydramine HCl (Benadryl) 50 mg STAT STAT IM 12/22/19 21:28 12/22/19 21:30 DC 12/22/19 22:03 Diphenhydramine HCl (Benadryl) 50 mg STAT STAT IM 01/23/20 01:38 01/23/20 01:40 DC 01/23/20 01:49 Diphenhydramine HCl (Benadryl) 50 mg STAT STAT IM 01/23/20 19:56 01/23/20 19:58 DC 01/23/20 20:00 Diphenhydramine HCl (Benadryl) 50 mg STAT STAT IM 01/26/20 16:38 01/26/20 16:42 DC 01/26/20 16:59 Diphenhydramine HCl (Benadryl) 50 mg STAT STAT IM 01/27/20 20:17 01/27/20 20:20 DC 01/27/20 20:32 Diphenhydramine HCl (Benadryl) 50 mg STAT STAT IM 01/31/20 20:14 01/31/20 20:16 DC 01/31/20 20:21 Diphenhydramine HCl (Benadryl) 50 mg STAT STAT IM 02/02/20 13:33 02/02/20 13:37 DC 02/02/20 13:45 Diphenhydramine HCl (Benadryl) 50 mg STAT STAT IM 02/02/20 16:52 02/02/20 16:55 DC 02/02/20 17:09 Diphenhydramine HCl (Benadryl) 50 mg STAT STAT IM 02/15/20 14:29 02/15/20 14:30 DC 02/15/20 14:51 Diphenhydramine HCl (Benadryl) 50 mg STAT STAT IM 04/01/20 06:43 04/01/20 06:45 DC 04/01/20 06:56 Docusate Sodium (Colace) 100 mg DAILY PO 01/08/20 09:00 02/07/20 08:59 DC 02/03/20 10:23 Fluphenazine HCl (Prolixin) 10 mg BID PO 12/23/19 09:00 12/28/19 09:42 DC Haloperidol (Haldol) 5 mg BID PO 01/18/20 09:00 03/25/20 13:22 DC 02/19/20 19:56 Haloperidol (Haldol) 5 mg BID PO 03/28/20 21:00 Haloperidol (Haldol) 5 mg STAT STAT IM 02/05/20 14:41 02/05/20 14:42 DC 02/05/20 14:50 Haloperidol (Haldol) 5 mg STAT STAT IM 04/01/20 06:43 04/01/20 06:45 DC 04/01/20 06:56 Haloperidol (Haldol) 5 mg STAT STAT IM 04/01/20 21:59 04/01/20 22:01 DC 04/01/20 22:11 Haloperidol (Haldol) 10 mg STAT STAT IM 01/23/20 01:38 01/23/20 01:40 DC 01/23/20 01:49 Haloperidol (Haldol) 10 mg STAT STAT IM 01/23/20 21:42 01/23/20 21:44 DC 01/23/20 21:55 Haloperidol (Haldol) 10 mg STAT STAT IM 01/24/20 23:45 01/24/20 23:47 DC 01/25/20 00:04 Haloperidol (Haldol) 10 mg STAT STAT IM 01/25/20 02:22 01/25/20 02:24 DC 01/25/20 02:27 Haloperidol (Haldol) 10 mg STAT STAT IM 01/26/20 16:50 01/26/20 16:52 DC 01/26/20 16:58 Haloperidol (Haldol) 10 mg STAT STAT IM 01/27/20 20:17 01/27/20 20:20 DC 01/27/20 20:32 Haloperidol (Haldol) 10 mg STAT STAT IM 01/31/20 20:14 01/31/20 20:16 DC 01/31/20 20:21 Haloperidol (Haldol) 10 mg STAT STAT IM 02/01/20 19:35 02/01/20 19:37 DC 02/01/20 19:41 Haloperidol (Haldol) 10 mg STAT STAT IM 02/02/20 13:33 02/02/20 13:37 DC 02/02/20 13:46 Haloperidol (Haldol) 10 mg STAT STAT IM 02/02/20 16:52 02/02/20 16:55 DC 02/02/20 17:09 Haloperidol (Haldol) 10 mg STAT STAT PO 01/26/20 16:38 01/26/20 16:52 DC Levothyroxine Sodium (Synthroid) 100 mcg DAILY@06 PO 12/24/19 06:00 03/25/20 13:23 DC 01/17/20 06:17 Levothyroxine Sodium (Synthroid) 100 mcg DAILY@06 PO 03/29/20 06:00 [place] Carbonate (Eskalith Oral Solution) 300 mg BID PO 12/23/19 09:00 12/28/19 09:41 DC 12/28/19 09:35 [place] Carbonate (Eskalith Oral Solution) 450 mg BID PO 12/28/19 21:00 12/31/19 10:58 DC 12/31/19 08:37 [place] Carbonate ([place] Carbonate) 450 mg BID PO 12/31/19 21:00 03/28/20 07:14 DC 02/03/20 10:22 [place] Carbonate ([place] Carbonate) 450 mg BID PO 03/28/20 21:00 Lorazepam (Ativan) 1 mg STAT STAT IM 01/24/20 23:45 01/24/20 23:47 DC 01/25/20 00:04 Lorazepam (Ativan) 1 mg STAT STAT IM 02/06/20 14:47 02/06/20 14:49 DC 02/06/20 14:54 Lorazepam (Ativan) 2 mg STAT STAT IM 01/23/20 01:38 01/23/20 01:40 DC 01/23/20 01:49 Lorazepam (Ativan) 2 mg STAT STAT IM 01/23/20 21:42 01/23/20 21:44 DC 01/23/20 21:56 Lorazepam (Ativan) 2 mg STAT STAT IM 01/26/20 16:38 01/26/20 16:42 DC 01/26/20 16:59 Lorazepam (Ativan) 2 mg STAT STAT IM 01/27/20 20:17 01/27/20 20:20 DC 01/27/20 20:31 Lorazepam (Ativan) 2 mg STAT STAT IM 01/31/20 20:14 01/31/20 20:16 DC 01/31/20 20:21 Lorazepam (Ativan) 2 mg STAT STAT IM 02/01/20 19:35 02/01/20 19:37 DC 02/01/20 19:41 Lorazepam (Ativan) 2 mg STAT STAT IM 02/02/20 13:33 02/02/20 13:37 DC 02/02/20 13:46 Lorazepam (Ativan) 2 mg STAT STAT IM 02/02/20 16:52 02/02/20 16:55 DC 02/02/20 17:09 Lorazepam (Ativan) 2 mg STAT STAT IM 02/05/20 16:29 02/05/20 16:34 DC 02/05/20 16:38 Magnesium Hydroxide (Milk Of Magnesia) 30 ml DAILYPRN PRN PO CONSTIPATION 12/23/19 01:00 03/25/20 13:23 DC Magnesium Hydroxide (Milk Of Magnesia) 30 ml DAILYPRN PRN PO CONSTIPATION 03/28/20 15:00 Miscellaneous (Unresolved Clarification Entry) SEE LABEL COMMENTS DAILY XX 01/21/20 09:00 01/21/20 08:04 DC Miscellaneous (Unresolved Clarification Entry) SEE LABEL COMMENTS DAILY XX 01/30/20 09:00 01/30/20 13:01 DC Miscellaneous (Unresolved Clarification Entry) SEE LABEL COMMENTS DAILY XX 02/02/20 09:00 02/04/20 09:30 DC Miscellaneous (Unresolved Clarification Entry) SEE LABEL COMMENTS DAILY XX 02/19/20 09:00 02/20/20 13:13 DC Miscellaneous (Unresolved Clarification Entry) SEE LABEL COMMENTS DAILY XX 02/16/20 09:00 02/16/20 09:59 DC Trazodone HCl (Desyrel) 50 mg QHSP PRN PO INSOMNIA 12/23/19 01:00 03/25/20 13:23 DC 02/29/20 22:53 Trazodone HCl (Desyrel) 50 mg QHSP PRN PO INSOMNIA 03/28/20 15:00 Allergies Coded Allergies: Sulfa (Sulfonamide Antibiotics) (Verified Allergy, Severe, hives, 04/25/19) amoxicillin (Verified Allergy, Intermediate, rash, 04/25/19) azithromycin (Verified Allergy, Intermediate, rash, 04/25/19) LYRIC REID DO Apr 03, 2020 11:40
[2020-04-04] MEDS: LEVOTHYROXINE 100MCG TABLET (0.1MG) PO SCH (06:00)
--- NOTE | 2020-04-04 08:01 | MHIPNPDOC ---
[facility] Progress Note Progress Note DATE OF SERVICE: 04/04/20 Subjective HPI: Attempted to meet with patient. However, she refused to meet this morning, saying that she didnt want to talk. The patient has not had any agitation episodes but remains highly distorted. Objective Behavior: Patient lying in bed and refuses to speak. Saying I dont want to talk to you. Does not awaken. Assessment F25.0 Schizoaffective disorder, bipolar type Plan Wait for final order for treatment of objection of which we are waiting for the judicial officer to sign off before beginning her treatment. Vital Signs Vital Signs Date Time Temp Pulse Resp B/P (MAP) Pulse Ox O2 Delivery O2 Flow Rate FiO2 04/03/20 09:01 Room Air Current Medications Current Medications Medications (Trade) Dose Ordered Sig/Ruth Route PRN Reason Start Time Stop Time Status Last Admin Dose Admin Acetaminophen (Tylenol Tab) 650 mg Q6HP PRN PO HEADACHE or DISCOMFORT 12/23/19 01:00 03/25/20 13:23 DC 02/03/20 14:04 Acetaminophen (Tylenol Tab) 650 mg Q6HP PRN PO HEADACHE OR DISCOMFORT 03/28/20 15:00 Al Hydrox/Mg Hydrox/Simethicone (Mylanta) 30 ml Q4HP PRN PO HEARTBURN/INDIGESTION 12/23/19 01:00 03/25/20 13:23 DC Al Hydrox/Mg Hydrox/Simethicone (Mylanta) 30 ml Q4HP PRN PO HEARTBURN/INDIGESTION 03/28/20 15:00 Chlorpromazine HCl (Thorazine) 50 mg STAT STAT IM 02/01/20 21:01 02/01/20 21:03 DC 02/01/20 21:07 Chlorpromazine HCl (Thorazine) 50 mg STAT STAT IM 02/05/20 16:29 02/05/20 16:34 DC 02/05/20 16:38 Chlorpromazine HCl (Thorazine) 50 mg STAT STAT IM 02/06/20 14:47 02/06/20 14:49 DC 02/06/20 14:54 Chlorpromazine HCl (Thorazine) 100 mg Q6HP PRN PO AGITATION 12/28/19 14:00 12/28/19 14:00 DC Chlorpromazine HCl (Thorazine) 100 mg STAT STAT IM 12/29/19 13:02 12/29/19 13:04 DC 12/29/19 13:32 Chlorpromazine HCl (Thorazine) 100 mg STAT STAT IM 01/31/20 21:38 01/31/20 21:40 DC 01/31/20 21:42 Chlorpromazine HCl (Thorazine) 150 mg Q6HP PRN PO AGITATION/anxiety 12/28/19 14:00 01/04/20 13:34 DC 01/04/20 09:25 Chlorpromazine HCl (Thorazine) 150 mg STAT STAT IM 01/23/20 19:56 01/23/20 19:58 DC 01/23/20 19:59 Chlorpromazine HCl (Thorazine) 150 mg STAT STAT IM 01/27/20 22:16 01/27/20 22:17 DC 01/27/20 22:54 Chlorpromazine HCl (Thorazine) 150 mg TID PO 01/04/20 16:00 03/25/20 13:13 DC 02/25/20 17:20 Chlorpromazine HCl (Thorazine) 150 mg TID PO 03/28/20 21:00 Clozapine (Clozaril) 12.5 mg QHS PO 01/06/20 21:00 01/12/20 09:29 DC 01/11/20 20:13 Clozapine (Clozaril) 25 mg BID PO 01/14/20 21:00 01/18/20 09:33 DC 01/16/20 21:17 Clozapine (Clozaril) 25 mg QHS PO 01/12/20 21:00 01/14/20 10:58 DC 01/13/20 22:43 Diphenhydramine HCl (Benadryl) 25 mg STAT STAT IM 04/01/20 21:59 04/01/20 22:01 DC 04/01/20 22:11 Diphenhydramine HCl (Benadryl) 50 mg Q4HP PRN PO ANXIETY/AGITATION 12/23/19 15:00 03/25/20 13:23 DC Diphenhydramine HCl (Benadryl) 50 mg Q4HP PRN PO ANXIETY/AGITATION 03/28/20 15:00 Diphenhydramine HCl (Benadryl) 50 mg STAT STAT IM 12/22/19 21:28 12/22/19 21:30 DC 12/22/19 22:03 Diphenhydramine HCl (Benadryl) 50 mg STAT STAT IM 01/23/20 01:38 01/23/20 01:40 DC 01/23/20 01:49 Diphenhydramine HCl (Benadryl) 50 mg STAT STAT IM 01/23/20 19:56 01/23/20 19:58 DC 01/23/20 20:00 Diphenhydramine HCl (Benadryl) 50 mg STAT STAT IM 01/26/20 16:38 01/26/20 16:42 DC 01/26/20 16:59 Diphenhydramine HCl (Benadryl) 50 mg STAT STAT IM 01/27/20 20:17 01/27/20 20:20 DC 01/27/20 20:32 Diphenhydramine HCl (Benadryl) 50 mg STAT STAT IM 01/31/20 20:14 01/31/20 20:16 DC 01/31/20 20:21 Diphenhydramine HCl (Benadryl) 50 mg STAT STAT IM 02/02/20 13:33 02/02/20 13:37 DC 02/02/20 13:45 Diphenhydramine HCl (Benadryl) 50 mg STAT STAT IM 02/02/20 16:52 02/02/20 16:55 DC 02/02/20 17:09 Diphenhydramine HCl (Benadryl) 50 mg STAT STAT IM 02/15/20 14:29 02/15/20 14:30 DC 02/15/20 14:51 Diphenhydramine HCl (Benadryl) 50 mg STAT STAT IM 04/01/20 06:43 04/01/20 06:45 DC 04/01/20 06:56 Docusate Sodium (Colace) 100 mg DAILY PO 01/08/20 09:00 02/07/20 08:59 DC 02/03/20 10:23 Fluphenazine HCl (Prolixin) 10 mg BID PO 12/23/19 09:00 12/28/19 09:42 DC Haloperidol (Haldol) 5 mg BID PO 01/18/20 09:00 03/25/20 13:22 DC 02/19/20 19:56 Haloperidol (Haldol) 5 mg BID PO 03/28/20 21:00 Haloperidol (Haldol) 5 mg STAT STAT IM 02/05/20 14:41 02/05/20 14:42 DC 02/05/20 14:50 Haloperidol (Haldol) 5 mg STAT STAT IM 04/01/20 06:43 04/01/20 06:45 DC 04/01/20 06:56 Haloperidol (Haldol) 5 mg STAT STAT IM 04/01/20 21:59 04/01/20 22:01 DC 04/01/20 22:11 Haloperidol (Haldol) 10 mg STAT STAT IM 01/23/20 01:38 01/23/20 01:40 DC 01/23/20 01:49 Haloperidol (Haldol) 10 mg STAT STAT IM 01/23/20 21:42 01/23/20 21:44 DC 01/23/20 21:55 Haloperidol (Haldol) 10 mg STAT STAT IM 01/24/20 23:45 01/24/20 23:47 DC 01/25/20 00:04 Haloperidol (Haldol) 10 mg STAT STAT IM 01/25/20 02:22 01/25/20 02:24 DC 01/25/20 02:27 Haloperidol (Haldol) 10 mg STAT STAT IM 01/26/20 16:50 01/26/20 16:52 DC 01/26/20 16:58 Haloperidol (Haldol) 10 mg STAT STAT IM 01/27/20 20:17 01/27/20 20:20 DC 01/27/20 20:32 Haloperidol (Haldol) 10 mg STAT STAT IM 01/31/20 20:14 01/31/20 20:16 DC 01/31/20 20:21 Haloperidol (Haldol) 10 mg STAT STAT IM 02/01/20 19:35 02/01/20 19:37 DC 02/01/20 19:41 Haloperidol (Haldol) 10 mg STAT STAT IM 02/02/20 13:33 02/02/20 13:37 DC 02/02/20 13:46 Haloperidol (Haldol) 10 mg STAT STAT IM 02/02/20 16:52 02/02/20 16:55 DC 02/02/20 17:09 Haloperidol (Haldol) 10 mg STAT STAT PO 01/26/20 16:38 01/26/20 16:52 DC Levothyroxine Sodium (Synthroid) 100 mcg DAILY@06 PO 12/24/19 06:00 03/25/20 13:23 DC 01/17/20 06:17 Levothyroxine Sodium (Synthroid) 100 mcg DAILY@06 PO 03/29/20 06:00 [place] Carbonate (Eskalith Oral Solution) 300 mg BID PO 12/23/19 09:00 12/28/19 09:41 DC 12/28/19 09:35 [place] Carbonate (Eskalith Oral Solution) 450 mg BID PO 12/28/19 21:00 12/31/19 10:58 DC 12/31/19 08:37 [place] Carbonate ([place] Carbonate) 450 mg BID PO 12/31/19 21:00 03/28/20 07:14 DC 02/03/20 10:22 [place] Carbonate ([place] Carbonate) 450 mg BID PO 03/28/20 21:00 Lorazepam (Ativan) 1 mg STAT STAT IM 01/24/20 23:45 01/24/20 23:47 DC 01/25/20 00:04 Lorazepam (Ativan) 1 mg STAT STAT IM 02/06/20 14:47 02/06/20 14:49 DC 02/06/20 14:54 Lorazepam (Ativan) 2 mg STAT STAT IM 01/23/20 01:38 01/23/20 01:40 DC 01/23/20 01:49 Lorazepam (Ativan) 2 mg STAT STAT IM 01/23/20 21:42 01/23/20 21:44 DC 01/23/20 21:56 Lorazepam (Ativan) 2 mg STAT STAT IM 01/26/20 16:38 01/26/20 16:42 DC 01/26/20 16:59 Lorazepam (Ativan) 2 mg STAT STAT IM 01/27/20 20:17 01/27/20 20:20 DC 01/27/20 20:31 Lorazepam (Ativan) 2 mg STAT STAT IM 01/31/20 20:14 01/31/20 20:16 DC 01/31/20 20:21 Lorazepam (Ativan) 2 mg STAT STAT IM 02/01/20 19:35 02/01/20 19:37 DC 02/01/20 19:41 Lorazepam (Ativan) 2 mg STAT STAT IM 02/02/20 13:33 02/02/20 13:37 DC 02/02/20 13:46 Lorazepam (Ativan) 2 mg STAT STAT IM 02/02/20 16:52 02/02/20 16:55 DC 02/02/20 17:09 Lorazepam (Ativan) 2 mg STAT STAT IM 02/05/20 16:29 02/05/20 16:34 DC 02/05/20 16:38 Magnesium Hydroxide (Milk Of Magnesia) 30 ml DAILYPRN PRN PO CONSTIPATION 12/23/19 01:00 03/25/20 13:23 DC Magnesium Hydroxide (Milk Of Magnesia) 30 ml DAILYPRN PRN PO CONSTIPATION 03/28/20 15:00 Miscellaneous (Unresolved Clarification Entry) SEE LABEL COMMENTS DAILY XX 01/21/20 09:00 01/21/20 08:04 DC Miscellaneous (Unresolved Clarification Entry) SEE LABEL COMMENTS DAILY XX 01/30/20 09:00 01/30/20 13:01 DC Miscellaneous (Unresolved Clarification Entry) SEE LABEL COMMENTS DAILY XX 02/02/20 09:00 02/04/20 09:30 DC Miscellaneous (Unresolved Clarification Entry) SEE LABEL COMMENTS DAILY XX 02/19/20 09:00 02/20/20 13:13 DC Miscellaneous (Unresolved Clarification Entry) SEE LABEL COMMENTS DAILY XX 02/16/20 09:00 02/16/20 09:59 DC Trazodone HCl (Desyrel) 50 mg QHSP PRN PO INSOMNIA 12/23/19 01:00 03/25/20 13:23 DC 02/29/20 22:53 Trazodone HCl (Desyrel) 50 mg QHSP PRN PO INSOMNIA 03/28/20 15:00 Allergies Coded Allergies: Sulfa (Sulfonamide Antibiotics) (Verified Allergy, Severe, hives, 04/25/19) amoxicillin (Verified Allergy, Intermediate, rash, 04/25/19) azithromycin (Verified Allergy, Intermediate, rash, 04/25/19) LYRIC REID DO Apr 04, 2020 08:01
[2020-04-04] MEDS: chlorproMAZINE 25 MG TABLET PO SCH ×3 (09:00→21:00)
[2020-04-04] MEDS: LITHIUM CARBONATE 150 MG CAP PO SCH ×2 (09:00→21:00)
[2020-04-04] MEDS: haloperidoL 5 MG TAB PO SCH ×2 (09:00→21:00)
[2020-04-05] MEDS: LEVOTHYROXINE 100MCG TABLET (0.1MG) PO SCH (05:46)
[2020-04-05] MEDS: LITHIUM CARBONATE 150 MG CAP PO SCH (09:00)
[2020-04-05] MEDS: chlorproMAZINE 25 MG TABLET PO SCH ×2 (09:00→15:13)
[2020-04-05] MEDS: haloperidoL 5 MG TAB PO SCH (09:00)
--- NOTE | 2020-04-05 11:47 | MHIPNPDOC ---
[facility] Progress Note Progress Note DATE OF SERVICE: 04/05/20 Subjective HPI: Latrice presents today for concerns regarding treatment. The patient was met with today. However, she is still quite distorted, nonlinear, and nearly incoherent. She has been less aggressive however she is unable to engage in any reasonable conversation. Objective Thought Form: Psychotic. Nonlinear. Perception: No perceptual abnormalities noted. Judgement: Poor. Insight: Poor. Tangential and nearly incoherent. Assessment F25.0 Schizoaffective disorder, bipolar type Plan Plan is to treat patient over objection as order has been received. She will be given Invega 3 mg twice daily with alternative Zyprexa 10 mg IM for refuse doses as per the treatment over objection order. Vital Signs Vital Signs Date Time Temp Pulse Resp B/P (MAP) Pulse Ox O2 Delivery O2 Flow Rate FiO2 04/03/20 09:01 Room Air Current Medications Current Medications Medications (Trade) Dose Ordered Sig/Ruth Route PRN Reason Start Time Stop Time Status Last Admin Dose Admin Acetaminophen (Tylenol Tab) 650 mg Q6HP PRN PO HEADACHE or DISCOMFORT 12/23/19 01:00 03/25/20 13:23 DC 02/03/20 14:04 Acetaminophen (Tylenol Tab) 650 mg Q6HP PRN PO HEADACHE OR DISCOMFORT 03/28/20 15:00 Al Hydrox/Mg Hydrox/Simethicone (Mylanta) 30 ml Q4HP PRN PO HEARTBURN/INDIGESTION 12/23/19 01:00 03/25/20 13:23 DC Al Hydrox/Mg Hydrox/Simethicone (Mylanta) 30 ml Q4HP PRN PO HEARTBURN/INDIGESTION 03/28/20 15:00 Chlorpromazine HCl (Thorazine) 50 mg STAT STAT IM 02/01/20 21:01 02/01/20 21:03 DC 02/01/20 21:07 Chlorpromazine HCl (Thorazine) 50 mg STAT STAT IM 02/05/20 16:29 02/05/20 16:34 DC 02/05/20 16:38 Chlorpromazine HCl (Thorazine) 50 mg STAT STAT IM 02/06/20 14:47 02/06/20 14:49 DC 02/06/20 14:54 Chlorpromazine HCl (Thorazine) 100 mg Q6HP PRN PO AGITATION 5/19/20 14:00 12/28/19 14:00 DC Chlorpromazine HCl (Thorazine) 100 mg STAT STAT IM 12/29/19 13:02 12/29/19 13:04 DC 12/29/19 13:32 Chlorpromazine HCl (Thorazine) 100 mg STAT STAT IM 01/31/20 21:38 01/31/20 21:40 DC 01/31/20 21:42 Chlorpromazine HCl (Thorazine) 150 mg Q6HP PRN PO AGITATION/anxiety 12/28/19 14:00 01/04/20 13:34 DC 01/04/20 09:25 Chlorpromazine HCl (Thorazine) 150 mg STAT STAT IM 01/23/20 19:56 01/23/20 19:58 DC 01/23/20 19:59 Chlorpromazine HCl (Thorazine) 150 mg STAT STAT IM 01/27/20 22:16 01/27/20 22:17 DC 01/27/20 22:54 Chlorpromazine HCl (Thorazine) 150 mg TID PO 01/04/20 16:00 03/25/20 13:13 DC 02/25/20 17:20 Chlorpromazine HCl (Thorazine) 150 mg TID PO 03/28/20 21:00 Clozapine (Clozaril) 12.5 mg QHS PO 01/06/20 21:00 01/12/20 09:29 DC 01/11/20 20:13 Clozapine (Clozaril) 25 mg BID PO 01/14/20 21:00 01/18/20 09:33 DC 01/16/20 21:17 Clozapine (Clozaril) 25 mg QHS PO 01/12/20 21:00 01/14/20 10:58 DC 01/13/20 22:43 Diphenhydramine HCl (Benadryl) 25 mg STAT STAT IM 04/01/20 21:59 04/01/20 22:01 DC 04/01/20 22:11 Diphenhydramine HCl (Benadryl) 50 mg Q4HP PRN PO ANXIETY/AGITATION 12/23/19 15:00 03/25/20 13:23 DC Diphenhydramine HCl (Benadryl) 50 mg Q4HP PRN PO ANXIETY/AGITATION 03/28/20 15:00 Diphenhydramine HCl (Benadryl) 50 mg STAT STAT IM 12/22/19 21:28 12/22/19 21:30 DC 12/22/19 22:03 Diphenhydramine HCl (Benadryl) 50 mg STAT STAT IM 01/23/20 01:38 01/23/20 01:40 DC 01/23/20 01:49 Diphenhydramine HCl (Benadryl) 50 mg STAT STAT IM 01/23/20 19:56 01/23/20 19:58 DC 01/23/20 20:00 Diphenhydramine HCl (Benadryl) 50 mg STAT STAT IM 01/26/20 16:38 01/26/20 16:42 DC 01/26/20 16:59 Diphenhydramine HCl (Benadryl) 50 mg STAT STAT IM 01/27/20 20:17 01/27/20 20:20 DC 01/27/20 20:32 Diphenhydramine HCl (Benadryl) 50 mg STAT STAT IM 01/31/20 20:14 01/31/20 20:16 DC 01/31/20 20:21 Diphenhydramine HCl (Benadryl) 50 mg STAT STAT IM 02/02/20 13:33 02/02/20 13:37 DC 02/02/20 13:45 Diphenhydramine HCl (Benadryl) 50 mg STAT STAT IM 02/02/20 16:52 02/02/20 16:55 DC 02/02/20 17:09 Diphenhydramine HCl (Benadryl) 50 mg STAT STAT IM 02/15/20 14:29 02/15/20 14:30 DC 02/15/20 14:51 Diphenhydramine HCl (Benadryl) 50 mg STAT STAT IM 04/01/20 06:43 04/01/20 06:45 DC 04/01/20 06:56 Docusate Sodium (Colace) 100 mg DAILY PO 01/08/20 09:00 02/07/20 08:59 DC 02/03/20 10:23 Fluphenazine HCl (Prolixin) 10 mg BID PO 12/23/19 09:00 12/28/19 09:42 DC Haloperidol (Haldol) 5 mg BID PO 01/18/20 09:00 03/25/20 13:22 DC 02/19/20 19:56 Haloperidol (Haldol) 5 mg BID PO 03/28/20 21:00 Haloperidol (Haldol) 5 mg STAT STAT IM 02/05/20 14:41 02/05/20 14:42 DC 02/05/20 14:50 Haloperidol (Haldol) 5 mg STAT STAT IM 04/01/20 06:43 04/01/20 06:45 DC 04/01/20 06:56 Haloperidol (Haldol) 5 mg STAT STAT IM 04/01/20 21:59 04/01/20 22:01 DC 04/01/20 22:11 Haloperidol (Haldol) 10 mg STAT STAT IM 01/23/20 01:38 01/23/20 01:40 DC 01/23/20 01:49 Haloperidol (Haldol) 10 mg STAT STAT IM 01/23/20 21:42 01/23/20 21:44 DC 01/23/20 21:55 Haloperidol (Haldol) 10 mg STAT STAT IM 01/24/20 23:45 01/24/20 23:47 DC 01/25/20 00:04 Haloperidol (Haldol) 10 mg STAT STAT IM 01/25/20 02:22 01/25/20 02:24 DC 01/25/20 02:27 Haloperidol (Haldol) 10 mg STAT STAT IM 01/26/20 16:50 01/26/20 16:52 DC 01/26/20 16:58 Haloperidol (Haldol) 10 mg STAT STAT IM 01/27/20 20:17 01/27/20 20:20 DC 01/27/20 20:32 Haloperidol (Haldol) 10 mg STAT STAT IM 01/31/20 20:14 01/31/20 20:16 DC 01/31/20 20:21 Haloperidol (Haldol) 10 mg STAT STAT IM 02/01/20 19:35 02/01/20 19:37 DC 02/01/20 19:41 Haloperidol (Haldol) 10 mg STAT STAT IM 02/02/20 13:33 02/02/20 13:37 DC 02/02/20 13:46 Haloperidol (Haldol) 10 mg STAT STAT IM 02/02/20 16:52 02/02/20 16:55 DC 02/02/20 17:09 Haloperidol (Haldol) 10 mg STAT STAT PO 01/26/20 16:38 01/26/20 16:52 DC Levothyroxine Sodium (Synthroid) 100 mcg DAILY@06 PO 12/24/19 06:00 03/25/20 13:23 DC 01/17/20 06:17 Levothyroxine Sodium (Synthroid) 100 mcg DAILY@06 PO 03/29/20 06:00 [place] Carbonate (Eskalith Oral Solution) 300 mg BID PO 12/23/19 09:00 12/28/19 09:41 DC 12/28/19 09:35 [place] Carbonate (Eskalith Oral Solution) 450 mg BID PO 12/28/19 21:00 12/31/19 10:58 DC 12/31/19 08:37 [place] Carbonate ([place] Carbonate) 450 mg BID PO 12/31/19 21:00 03/28/20 07:14 DC 02/03/20 10:22 [place] Carbonate ([place] Carbonate) 450 mg BID PO 03/28/20 21:00 Lorazepam (Ativan) 1 mg STAT STAT IM 01/24/20 23:45 01/24/20 23:47 DC 01/25/20 00:04 Lorazepam (Ativan) 1 mg STAT STAT IM 02/06/20 14:47 02/06/20 14:49 DC 02/06/20 14:54 Lorazepam (Ativan) 2 mg STAT STAT IM 01/23/20 01:38 01/23/20 01:40 DC 01/23/20 01:49 Lorazepam (Ativan) 2 mg STAT STAT IM 01/23/20 21:42 01/23/20 21:44 DC 01/23/20 21:56 Lorazepam (Ativan) 2 mg STAT STAT IM 01/26/20 16:38 01/26/20 16:42 DC 01/26/20 16:59 Lorazepam (Ativan) 2 mg STAT STAT IM 01/27/20 20:17 01/27/20 20:20 DC 01/27/20 20:31 Lorazepam (Ativan) 2 mg STAT STAT IM 01/31/20 20:14 01/31/20 20:16 DC 01/31/20 20:21 Lorazepam (Ativan) 2 mg STAT STAT IM 02/01/20 19:35 02/01/20 19:37 DC 02/01/20 19:41 Lorazepam (Ativan) 2 mg STAT STAT IM 02/02/20 13:33 02/02/20 13:37 DC 02/02/20 13:46 Lorazepam (Ativan) 2 mg STAT STAT IM 02/02/20 16:52 02/02/20 16:55 DC 02/02/20 17:09 Lorazepam (Ativan) 2 mg STAT STAT IM 02/05/20 16:29 02/05/20 16:34 DC 02/05/20 16:38 Magnesium Hydroxide (Milk Of Magnesia) 30 ml DAILYPRN PRN PO CONSTIPATION 12/23/19 01:00 03/25/20 13:23 DC Magnesium Hydroxide (Milk Of Magnesia) 30 ml DAILYPRN PRN PO CONSTIPATION 03/28/20 15:00 Miscellaneous (Unresolved Clarification Entry) SEE LABEL COMMENTS DAILY XX 01/21/20 09:00 01/21/20 08:04 DC Miscellaneous (Unresolved Clarification Entry) SEE LABEL COMMENTS DAILY XX 01/30/20 09:00 01/30/20 13:01 DC Miscellaneous (Unresolved Clarification Entry) SEE LABEL COMMENTS DAILY XX 02/02/20 09:00 02/04/20 09:30 DC Miscellaneous (Unresolved Clarification Entry) SEE LABEL COMMENTS DAILY XX 02/19/20 09:00 02/20/20 13:13 DC Miscellaneous (Unresolved Clarification Entry) SEE LABEL COMMENTS DAILY XX 02/16/20 09:00 02/16/20 09:59 DC Trazodone HCl (Desyrel) 50 mg QHSP PRN PO INSOMNIA 12/23/19 01:00 03/25/20 13:23 DC 02/29/20 22:53 Trazodone HCl (Desyrel) 50 mg QHSP PRN PO INSOMNIA 03/28/20 15:00 Allergies Coded Allergies: Sulfa (Sulfonamide Antibiotics) (Verified Allergy, Severe, hives, 04/25/19) amoxicillin (Verified Allergy, Intermediate, rash, 04/25/19) azithromycin (Verified Allergy, Intermediate, rash, 04/25/19) LYRIC REID DO Apr 05, 2020 11:47
[2020-04-05 16:07] VITALS: BP 170/108
[2020-04-05] MEDS: PALIPERIDONE 3 MG ER TAB (INVEGA) PO SCH (21:00)
[2020-04-05] MEDS: OLANZapine INTRAMUSCULAR 10MG VIAL IM PRN (21:39)
[2020-04-06] MEDS: LEVOTHYROXINE 100MCG TABLET (0.1MG) PO SCH (05:47)
--- NOTE | 2020-04-06 07:37 | MHIPNPDOC ---
[facility] Progress Note Progress Note DATE OF SERVICE: 04/06/20 Subjective HPI: Latrice presents today for concerns regarding her behavior situation. She is quite distorted, bizarre, laughing incoherently; however, she has been much less violent with no agitation episodes in several days. Patient reports that she wants to rest. She reports that she just wants to rest. MEDICATIONS: She had gotten her first dose of Olanzapine as she had refused her Invega. Objective Thought Form: More linear and More logical. Perception: She appears to be much less preoccupied interally. Judgement: Poor. Insight: Poor. Assessment F25.0 Schizoaffective disorder, bipolar type Plan Continue treatment with Invega 3 mg BID with 10 mg of Olanzapine BID IM. If she refuses making some progress, perhaps even might be able to divert from skilled nursing. However, were still petitioning at this time. Vital Signs Vital Signs Date Time Temp Pulse Resp B/P (MAP) Pulse Ox O2 Delivery O2 Flow Rate FiO2 04/05/20 16:07 98.2 89 16 170/108 (128) 99 Room Air Current Medications Current Medications Medications (Trade) Dose Ordered Sig/Ruth Route PRN Reason Start Time Stop Time Status Last Admin Dose Admin Acetaminophen (Tylenol Tab) 650 mg Q6HP PRN PO HEADACHE or DISCOMFORT 12/23/19 01:00 03/25/20 13:23 DC 02/03/20 14:04 Acetaminophen (Tylenol Tab) 650 mg Q6HP PRN PO HEADACHE OR DISCOMFORT 03/28/20 15:00 Al Hydrox/Mg Hydrox/Simethicone (Mylanta) 30 ml Q4HP PRN PO HEARTBURN/INDIGESTION 12/23/19 01:00 03/25/20 13:23 DC Al Hydrox/Mg Hydrox/Simethicone (Mylanta) 30 ml Q4HP PRN PO HEARTBURN/INDIGESTION 03/28/20 15:00 Chlorpromazine HCl (Thorazine) 50 mg STAT STAT IM 02/01/20 21:01 02/01/20 21:03 DC 02/01/20 21:07 Chlorpromazine HCl (Thorazine) 50 mg STAT STAT IM 02/05/20 16:29 02/05/20 16:34 DC 02/05/20 16:38 Chlorpromazine HCl (Thorazine) 50 mg STAT STAT IM 02/06/20 14:47 02/06/20 14:49 DC 02/06/20 14:54 Chlorpromazine HCl (Thorazine) 100 mg Q6HP PRN PO AGITATION 12/28/19 14:00 12/28/19 14:00 DC Chlorpromazine HCl (Thorazine) 100 mg STAT STAT IM 12/29/19 13:02 12/29/19 13:04 DC 12/29/19 13:32 Chlorpromazine HCl (Thorazine) 100 mg STAT STAT IM 01/31/20 21:38 01/31/20 21:40 DC 01/31/20 21:42 Chlorpromazine HCl (Thorazine) 150 mg Q6HP PRN PO AGITATION/anxiety 12/28/19 14:00 01/04/20 13:34 DC 01/04/20 09:25 Chlorpromazine HCl (Thorazine) 150 mg STAT STAT IM 01/23/20 19:56 01/23/20 19:58 DC 01/23/20 19:59 Chlorpromazine HCl (Thorazine) 150 mg STAT STAT IM 01/27/20 22:16 01/27/20 22:17 DC 01/27/20 22:54 Chlorpromazine HCl (Thorazine) 150 mg TID PO 01/04/20 16:00 03/25/20 13:13 DC 02/25/20 17:20 Chlorpromazine HCl (Thorazine) 150 mg TID PO 03/28/20 21:00 04/05/20 15:35 DC Clozapine (Clozaril) 12.5 mg QHS PO 01/06/20 21:00 01/12/20 09:29 DC 01/11/20 20:13 Clozapine (Clozaril) 25 mg BID PO 01/14/20 21:00 01/18/20 09:33 DC 01/16/20 21:17 Clozapine (Clozaril) 25 mg QHS PO 01/12/20 21:00 01/14/20 10:58 DC 01/13/20 22:43 Diphenhydramine HCl (Benadryl) 25 mg STAT STAT IM 04/01/20 21:59 04/01/20 22:01 DC 04/01/20 22:11 Diphenhydramine HCl (Benadryl) 50 mg Q4HP PRN PO ANXIETY/AGITATION 12/23/19 15:00 03/25/20 13:23 DC Diphenhydramine HCl (Benadryl) 50 mg Q4HP PRN PO ANXIETY/AGITATION 03/28/20 15:00 Diphenhydramine HCl (Benadryl) 50 mg STAT STAT IM 12/22/19 21:28 12/22/19 21:30 DC 12/22/19 22:03 Diphenhydramine HCl (Benadryl) 50 mg STAT STAT IM 01/23/20 01:38 01/23/20 01:40 DC 01/23/20 01:49 Diphenhydramine HCl (Benadryl) 50 mg STAT STAT IM 01/23/20 19:56 01/23/20 19:58 DC 01/23/20 20:00 Diphenhydramine HCl (Benadryl) 50 mg STAT STAT IM 01/26/20 16:38 01/26/20 16:42 DC 01/26/20 16:59 Diphenhydramine HCl (Benadryl) 50 mg STAT STAT IM 01/27/20 20:17 01/27/20 20:20 DC 01/27/20 20:32 Diphenhydramine HCl (Benadryl) 50 mg STAT STAT IM 01/31/20 20:14 01/31/20 20:16 DC 01/31/20 20:21 Diphenhydramine HCl (Benadryl) 50 mg STAT STAT IM 02/02/20 13:33 02/02/20 13:37 DC 02/02/20 13:45 Diphenhydramine HCl (Benadryl) 50 mg STAT STAT IM 02/02/20 16:52 02/02/20 16:55 DC 02/02/20 17:09 Diphenhydramine HCl (Benadryl) 50 mg STAT STAT IM 02/15/20 14:29 02/15/20 14:30 DC 02/15/20 14:51 Diphenhydramine HCl (Benadryl) 50 mg STAT STAT IM 04/01/20 06:43 04/01/20 06:45 DC 04/01/20 06:56 Docusate Sodium (Colace) 100 mg DAILY PO 01/08/20 09:00 02/07/20 08:59 DC 02/03/20 10:23 Fluphenazine HCl (Prolixin) 10 mg BID PO 12/23/19 09:00 12/28/19 09:42 DC Haloperidol (Haldol) 5 mg BID PO 01/18/20 09:00 03/25/20 13:22 DC 02/19/20 19:56 Haloperidol (Haldol) 5 mg BID PO 03/28/20 21:00 04/05/20 15:35 DC Haloperidol (Haldol) 5 mg STAT STAT IM 02/05/20 14:41 02/05/20 14:42 DC 02/05/20 14:50 Haloperidol (Haldol) 5 mg STAT STAT IM 04/01/20 06:43 04/01/20 06:45 DC 04/01/20 06:56 Haloperidol (Haldol) 5 mg STAT STAT IM 04/01/20 21:59 04/01/20 22:01 DC 04/01/20 22:11 Haloperidol (Haldol) 10 mg STAT STAT IM 01/23/20 01:38 01/23/20 01:40 DC 01/23/20 01:49 Haloperidol (Haldol) 10 mg STAT STAT IM 01/23/20 21:42 01/23/20 21:44 DC 01/23/20 21:55 Haloperidol (Haldol) 10 mg STAT STAT IM 01/24/20 23:45 01/24/20 23:47 DC 01/25/20 00:04 Haloperidol (Haldol) 10 mg STAT STAT IM 01/25/20 02:22 01/25/20 02:24 DC 01/25/20 02:27 Haloperidol (Haldol) 10 mg STAT STAT IM 01/26/20 16:50 01/26/20 16:52 DC 01/26/20 16:58 Haloperidol (Haldol) 10 mg STAT STAT IM 01/27/20 20:17 01/27/20 20:20 DC 01/27/20 20:32 Haloperidol (Haldol) 10 mg STAT STAT IM 01/31/20 20:14 01/31/20 20:16 DC 01/31/20 20:21 Haloperidol (Haldol) 10 mg STAT STAT IM 02/01/20 19:35 02/01/20 19:37 DC 02/01/20 19:41 Haloperidol (Haldol) 10 mg STAT STAT IM 02/02/20 13:33 02/02/20 13:37 DC 02/02/20 13:46 Haloperidol (Haldol) 10 mg STAT STAT IM 02/02/20 16:52 02/02/20 16:55 DC 02/02/20 17:09 Haloperidol (Haldol) 10 mg STAT STAT PO 01/26/20 16:38 01/26/20 16:52 DC Levothyroxine Sodium (Synthroid) 100 mcg DAILY@06 PO 12/24/19 06:00 03/25/20 13:23 DC 01/17/20 06:17 Levothyroxine Sodium (Synthroid) 100 mcg DAILY@06 PO 03/29/20 06:00 Lisinopril (Prinivil) 5 mg DAILY PO 04/06/20 09:00 [place] Carbonate (Eskalith Oral Solution) 300 mg BID PO 12/23/19 09:00 12/28/19 09:41 DC 12/28/19 09:35 [place] Carbonate (Eskalith Oral Solution) 450 mg BID PO 12/28/19 21:00 12/31/19 10:58 DC 12/31/19 08:37 [place] Carbonate ([place] Carbonate) 450 mg BID PO 12/31/19 21:00 03/28/20 07:14 DC 02/03/20 10:22 [place] Carbonate ([place] Carbonate) 450 mg BID PO 03/28/20 21:00 04/05/20 15:35 DC Lorazepam (Ativan) 1 mg STAT STAT IM 01/24/20 23:45 01/24/20 23:47 DC 01/25/20 00:04 Lorazepam (Ativan) 1 mg STAT STAT IM 02/06/20 14:47 02/06/20 14:49 DC 02/06/20 14:54 Lorazepam (Ativan) 2 mg STAT STAT IM 01/23/20 01:38 01/23/20 01:40 DC 01/23/20 01:49 Lorazepam (Ativan) 2 mg STAT STAT IM 01/23/20 21:42 01/23/20 21:44 DC 01/23/20 21:56 Lorazepam (Ativan) 2 mg STAT STAT IM 01/26/20 16:38 01/26/20 16:42 DC 01/26/20 16:59 Lorazepam (Ativan) 2 mg STAT STAT IM 01/27/20 20:17 01/27/20 20:20 DC 01/27/20 20:31 Lorazepam (Ativan) 2 mg STAT STAT IM 01/31/20 20:14 01/31/20 20:16 DC 01/31/20 20:21 Lorazepam (Ativan) 2 mg STAT STAT IM 02/01/20 19:35 02/01/20 19:37 DC 02/01/20 19:41 Lorazepam (Ativan) 2 mg STAT STAT IM 02/02/20 13:33 02/02/20 13:37 DC 02/02/20 13:46 Lorazepam (Ativan) 2 mg STAT STAT IM 02/02/20 16:52 02/02/20 16:55 DC 02/02/20 17:09 Lorazepam (Ativan) 2 mg STAT STAT IM 02/05/20 16:29 02/05/20 16:34 DC 02/05/20 16:38 Magnesium Hydroxide (Milk Of Magnesia) 30 ml DAILYPRN PRN PO CONSTIPATION 12/23/19 01:00 03/25/20 13:23 DC Magnesium Hydroxide (Milk Of Magnesia) 30 ml DAILYPRN PRN PO CONSTIPATION 03/28/20 15:00 Miscellaneous (Unresolved Clarification Entry) SEE LABEL COMMENTS DAILY XX 01/21/20 09:00 01/21/20 08:04 DC Miscellaneous (Unresolved Clarification Entry) SEE LABEL COMMENTS DAILY XX 01/30/20 09:00 01/30/20 13:01 DC Miscellaneous (Unresolved Clarification Entry) SEE LABEL COMMENTS DAILY XX 02/02/20 09:00 02/04/20 09:30 DC Miscellaneous (Unresolved Clarification Entry) SEE LABEL COMMENTS DAILY XX 02/19/20 09:00 02/20/20 13:13 DC Miscellaneous (Unresolved Clarification Entry) SEE LABEL COMMENTS DAILY XX 02/16/20 09:00 02/16/20 09:59 DC Olanzapine (Zyprexa Intramuscular) 10 mg BIDP PRN IM If refuses invega 04/05/20 19:30 04/05/20 21:39 Paliperidone (Invega) 3 mg BID PO 8/26/20 21:00 Trazodone HCl (Desyrel) 50 mg QHSP PRN PO INSOMNIA 12/23/19 01:00 03/25/20 13:23 DC 02/29/20 22:53 Trazodone HCl (Desyrel) 50 mg QHSP PRN PO INSOMNIA 03/28/20 15:00 Allergies Coded Allergies: Sulfa (Sulfonamide Antibiotics) (Verified Allergy, Severe, hives, 04/25/19) amoxicillin (Verified Allergy, Intermediate, rash, 04/25/19) azithromycin (Verified Allergy, Intermediate, rash, 04/25/19) LYRIC REID DO Apr 06, 2020 07:37
[2020-04-06] MEDS: lisinopriL 5 MG TAB PO SCH (09:00)
[2020-04-06] MEDS: PALIPERIDONE 3 MG ER TAB (INVEGA) PO SCH ×2 (09:00→21:25)
[2020-04-06] MEDS: OLANZapine INTRAMUSCULAR 10MG VIAL IM PRN (10:51)
[2020-04-06] MEDS: traZODone 50 MG TAB PO PRN (21:25)
[2020-04-07] MEDS: LEVOTHYROXINE 100MCG TABLET (0.1MG) PO SCH (05:53)
--- NOTE | 2020-04-07 08:19 | MHIPNPDOC ---
[facility] Progress Note Progress Note DATE OF SERVICE: 04/07/20 Subjective HPI: Patient presents today for follow-up and meet for the evaluation. She is still quite distorted, unreasonable, and generally unable to engage in any reasonable conversation as she is so hyper-verbal that she is incoherent. She has had no behavioral issues overnight. Objective Appearance: Hygiene is fair. Behavior: Unusal pacing behavior. Hyper-verbal. Nearly incoherent. Judgement: Poor. Insight: Poor. Assessment F25.0 Schizoaffective disorder, bipolar type Plan Continue with treatment over objection protocol, 3 mg Invega BID with 10 mg Olanzapine IM as alternative. Start Propranolol 10 mg Q 6 hours PRN for potential akathisia as well as Cogentin BID. Vital Signs Vital Signs Date Time Temp Pulse Resp B/P (MAP) Pulse Ox O2 Delivery O2 Flow Rate FiO2 04/05/20 16:07 98.2 89 16 170/108 (128) 99 Room Air Current Medications Current Medications Medications (Trade) Dose Ordered Sig/Ruth Route PRN Reason Start Time Stop Time Status Last Admin Dose Admin Acetaminophen (Tylenol Tab) 650 mg Q6HP PRN PO HEADACHE or DISCOMFORT 12/23/19 01:00 03/25/20 13:23 DC 02/03/20 14:04 Acetaminophen (Tylenol Tab) 650 mg Q6HP PRN PO HEADACHE OR DISCOMFORT 03/28/20 15:00 Al Hydrox/Mg Hydrox/Simethicone (Mylanta) 30 ml Q4HP PRN PO HEARTBURN/INDIGESTION 12/23/19 01:00 03/25/20 13:23 DC Al Hydrox/Mg Hydrox/Simethicone (Mylanta) 30 ml Q4HP PRN PO HEARTBURN/INDIGESTION 03/28/20 15:00 Chlorpromazine HCl (Thorazine) 50 mg STAT STAT IM 02/01/20 21:01 02/01/20 21:03 DC 02/01/20 21:07 Chlorpromazine HCl (Thorazine) 50 mg STAT STAT IM 02/05/20 16:29 02/05/20 16:34 DC 02/05/20 16:38 Chlorpromazine HCl (Thorazine) 50 mg STAT STAT IM 02/06/20 14:47 02/06/20 14:49 DC 02/06/20 14:54 Chlorpromazine HCl (Thorazine) 100 mg Q6HP PRN PO AGITATION 12/28/19 14:00 12/28/19 14:00 DC Chlorpromazine HCl (Thorazine) 100 mg STAT STAT IM 12/29/19 13:02 12/29/19 13:04 DC 12/29/19 13:32 Chlorpromazine HCl (Thorazine) 100 mg STAT STAT IM 01/31/20 21:38 01/31/20 21:40 DC 01/31/20 21:42 Chlorpromazine HCl (Thorazine) 150 mg Q6HP PRN PO AGITATION/anxiety 12/28/19 14:00 01/04/20 13:34 DC 01/04/20 09:25 Chlorpromazine HCl (Thorazine) 150 mg STAT STAT IM 01/23/20 19:56 01/23/20 19:58 DC 01/23/20 19:59 Chlorpromazine HCl (Thorazine) 150 mg STAT STAT IM 01/27/20 22:16 01/27/20 22:17 DC 01/27/20 22:54 Chlorpromazine HCl (Thorazine) 150 mg TID PO 01/04/20 16:00 03/25/20 13:13 DC 02/25/20 17:20 Chlorpromazine HCl (Thorazine) 150 mg TID PO 03/28/20 21:00 04/05/20 15:35 DC Clozapine (Clozaril) 12.5 mg QHS PO 01/06/20 21:00 01/12/20 09:29 DC 01/11/20 20:13 Clozapine (Clozaril) 25 mg BID PO 01/14/20 21:00 01/18/20 09:33 DC 01/16/20 21:17 Clozapine (Clozaril) 25 mg QHS PO 01/12/20 21:00 01/14/20 10:58 DC 01/13/20 22:43 Diphenhydramine HCl (Benadryl) 25 mg STAT STAT IM 04/01/20 21:59 04/01/20 22:01 DC 04/01/20 22:11 Diphenhydramine HCl (Benadryl) 50 mg Q4HP PRN PO ANXIETY/AGITATION 12/23/19 15:00 03/25/20 13:23 DC Diphenhydramine HCl (Benadryl) 50 mg Q4HP PRN PO ANXIETY/AGITATION 03/28/20 15:00 Diphenhydramine HCl (Benadryl) 50 mg STAT STAT IM 12/22/19 21:28 12/22/19 21:30 DC 12/22/19 22:03 Diphenhydramine HCl (Benadryl) 50 mg STAT STAT IM 01/23/20 01:38 01/23/20 01:40 DC 01/23/20 01:49 Diphenhydramine HCl (Benadryl) 50 mg STAT STAT IM 01/23/20 19:56 01/23/20 19:58 DC 01/23/20 20:00 Diphenhydramine HCl (Benadryl) 50 mg STAT STAT IM 01/26/20 16:38 01/26/20 16:42 DC 01/26/20 16:59 Diphenhydramine HCl (Benadryl) 50 mg STAT STAT IM 01/27/20 20:17 01/27/20 20:20 DC 01/27/20 20:32 Diphenhydramine HCl (Benadryl) 50 mg STAT STAT IM 01/31/20 20:14 01/31/20 20:16 DC 01/31/20 20:21 Diphenhydramine HCl (Benadryl) 50 mg STAT STAT IM 02/02/20 13:33 02/02/20 13:37 DC 02/02/20 13:45 Diphenhydramine HCl (Benadryl) 50 mg STAT STAT IM 02/02/20 16:52 02/02/20 16:55 DC 02/02/20 17:09 Diphenhydramine HCl (Benadryl) 50 mg STAT STAT IM 02/15/20 14:29 02/15/20 14:30 DC 02/15/20 14:51 Diphenhydramine HCl (Benadryl) 50 mg STAT STAT IM 04/01/20 06:43 04/01/20 06:45 DC 04/01/20 06:56 Docusate Sodium (Colace) 100 mg DAILY PO 01/08/20 09:00 02/07/20 08:59 DC 02/03/20 10:23 Fluphenazine HCl (Prolixin) 10 mg BID PO 12/23/19 09:00 12/28/19 09:42 DC Haloperidol (Haldol) 5 mg BID PO 01/18/20 09:00 03/25/20 13:22 DC 02/19/20 19:56 Haloperidol (Haldol) 5 mg BID PO 03/28/20 21:00 04/05/20 15:35 DC Haloperidol (Haldol) 5 mg STAT STAT IM 02/05/20 14:41 02/05/20 14:42 DC 02/05/20 14:50 Haloperidol (Haldol) 5 mg STAT STAT IM 04/01/20 06:43 04/01/20 06:45 DC 04/01/20 06:56 Haloperidol (Haldol) 5 mg STAT STAT IM 04/01/20 21:59 04/01/20 22:01 DC 04/01/20 22:11 Haloperidol (Haldol) 10 mg STAT STAT IM 01/23/20 01:38 01/23/20 01:40 DC 01/23/20 01:49 Haloperidol (Haldol) 10 mg STAT STAT IM 01/23/20 21:42 01/23/20 21:44 DC 01/23/20 21:55 Haloperidol (Haldol) 10 mg STAT STAT IM 01/24/20 23:45 01/24/20 23:47 DC 01/25/20 00:04 Haloperidol (Haldol) 10 mg STAT STAT IM 01/25/20 02:22 01/25/20 02:24 DC 01/25/20 02:27 Haloperidol (Haldol) 10 mg STAT STAT IM 01/26/20 16:50 01/26/20 16:52 DC 01/26/20 16:58 Haloperidol (Haldol) 10 mg STAT STAT IM 01/27/20 20:17 01/27/20 20:20 DC 01/27/20 20:32 Haloperidol (Haldol) 10 mg STAT STAT IM 01/31/20 20:14 01/31/20 20:16 DC 01/31/20 20:21 Haloperidol (Haldol) 10 mg STAT STAT IM 02/01/20 19:35 02/01/20 19:37 DC 02/01/20 19:41 Haloperidol (Haldol) 10 mg STAT STAT IM 02/02/20 13:33 02/02/20 13:37 DC 02/02/20 13:46 Haloperidol (Haldol) 10 mg STAT STAT IM 02/02/20 16:52 02/02/20 16:55 DC 02/02/20 17:09 Haloperidol (Haldol) 10 mg STAT STAT PO 01/26/20 16:38 01/26/20 16:52 DC Levothyroxine Sodium (Synthroid) 100 mcg DAILY@06 PO 12/24/19 06:00 03/25/20 13:23 DC 01/17/20 06:17 Levothyroxine Sodium (Synthroid) 100 mcg DAILY@06 PO 03/29/20 06:00 Lisinopril (Prinivil) 5 mg DAILY PO 04/06/20 09:00 [place] Carbonate (Eskalith Oral Solution) 300 mg BID PO 12/23/19 09:00 12/28/19 09:41 DC 12/28/19 09:35 [place] Carbonate (Eskalith Oral Solution) 450 mg BID PO 12/28/19 21:00 12/31/19 10:58 DC 12/31/19 08:37 [place] Carbonate ([place] Carbonate) 450 mg BID PO 12/31/19 21:00 03/28/20 07:14 DC 02/03/20 10:22 [place] Carbonate ([place] Carbonate) 450 mg BID PO 03/28/20 21:00 04/05/20 15:35 DC Lorazepam (Ativan) 1 mg STAT STAT IM 01/24/20 23:45 01/24/20 23:47 DC 01/25/20 00:04 Lorazepam (Ativan) 1 mg STAT STAT IM 02/06/20 14:47 02/06/20 14:49 DC 02/06/20 14:54 Lorazepam (Ativan) 2 mg STAT STAT IM 01/23/20 01:38 01/23/20 01:40 DC 01/23/20 01:49 Lorazepam (Ativan) 2 mg STAT STAT IM 01/23/20 21:42 01/23/20 21:44 DC 01/23/20 21:56 Lorazepam (Ativan) 2 mg STAT STAT IM 01/26/20 16:38 01/26/20 16:42 DC 01/26/20 16:59 Lorazepam (Ativan) 2 mg STAT STAT IM 01/27/20 20:17 01/27/20 20:20 DC 01/27/20 20:31 Lorazepam (Ativan) 2 mg STAT STAT IM 01/31/20 20:14 01/31/20 20:16 DC 01/31/20 20:21 Lorazepam (Ativan) 2 mg STAT STAT IM 02/01/20 19:35 02/01/20 19:37 DC 02/01/20 19:41 Lorazepam (Ativan) 2 mg STAT STAT IM 02/02/20 13:33 02/02/20 13:37 DC 02/02/20 13:46 Lorazepam (Ativan) 2 mg STAT STAT IM 02/02/20 16:52 02/02/20 16:55 DC 02/02/20 17:09 Lorazepam (Ativan) 2 mg STAT STAT IM 02/05/20 16:29 02/05/20 16:34 DC 02/05/20 16:38 Magnesium Hydroxide (Milk Of Magnesia) 30 ml DAILYPRN PRN PO CONSTIPATION 12/23/19 01:00 03/25/20 13:23 DC Magnesium Hydroxide (Milk Of Magnesia) 30 ml DAILYPRN PRN PO CONSTIPATION 03/28/20 15:00 Miscellaneous (Unresolved Clarification Entry) SEE LABEL COMMENTS DAILY XX 01/21/20 09:00 01/21/20 08:04 DC Miscellaneous (Unresolved Clarification Entry) SEE LABEL COMMENTS DAILY XX 01/30/20 09:00 01/30/20 13:01 DC Miscellaneous (Unresolved Clarification Entry) SEE LABEL COMMENTS DAILY XX 02/02/20 09:00 02/04/20 09:30 DC Miscellaneous (Unresolved Clarification Entry) SEE LABEL COMMENTS DAILY XX 02/19/20 09:00 02/20/20 13:13 DC Miscellaneous (Unresolved Clarification Entry) SEE LABEL COMMENTS DAILY XX 02/16/20 09:00 02/16/20 09:59 DC Olanzapine (Zyprexa Intramuscular) 10 mg BIDP PRN IM If refuses invega 04/05/20 19:30 04/06/20 10:51 Paliperidone (Invega) 3 mg BID PO 04/05/20 21:00 04/06/20 21:25 Trazodone HCl (Desyrel) 50 mg QHSP PRN PO INSOMNIA 12/23/19 01:00 03/25/20 13:23 DC 02/29/20 22:53 Trazodone HCl (Desyrel) 50 mg QHSP PRN PO INSOMNIA 03/28/20 15:00 04/06/20 21:25 Allergies Coded Allergies: Sulfa (Sulfonamide Antibiotics) (Verified Allergy, Severe, hives, 04/25/19) amoxicillin (Verified Allergy, Intermediate, rash, 04/25/19) azithromycin (Verified Allergy, Intermediate, rash, 04/25/19) LYRIC REID DO Apr 07, 2020 08:19
[2020-04-07] MEDS: BENZTROPINE 1 MG TAB PO SCH ×2 (09:00→22:05)
[2020-04-07] MEDS: PALIPERIDONE 3 MG ER TAB (INVEGA) PO SCH ×2 (09:00→22:05)
[2020-04-07] MEDS: lisinopriL 5 MG TAB PO SCH (09:00)
[2020-04-07] MEDS ORDERED: PROPRANOLOL 10 MG TAB PO PRN (09:15)
[2020-04-07] MEDS: OLANZapine INTRAMUSCULAR 10MG VIAL IM PRN (10:52)
[2020-04-07] MEDS: traZODone 50 MG TAB PO PRN (22:05)
[2020-04-08] MEDS: LEVOTHYROXINE 100MCG TABLET (0.1MG) PO SCH (06:00)
[2020-04-08] MEDS: BENZTROPINE 1 MG TAB PO SCH ×2 (09:00→21:00)
[2020-04-08] MEDS: lisinopriL 5 MG TAB PO SCH (09:00)
[2020-04-08] MEDS: PALIPERIDONE 3 MG ER TAB (INVEGA) PO SCH ×2 (09:00→21:00)
[2020-04-08] MEDS: OLANZapine INTRAMUSCULAR 10MG VIAL IM PRN ×2 (11:20→21:34)
[2020-04-09] MEDS: LEVOTHYROXINE 100MCG TABLET (0.1MG) PO SCH (06:00)
[2020-04-09] MEDS: PALIPERIDONE 3 MG ER TAB (INVEGA) PO SCH ×2 (09:00→20:59)
[2020-04-09] MEDS: lisinopriL 5 MG TAB PO SCH (09:00)
[2020-04-09] MEDS: BENZTROPINE 1 MG TAB PO SCH ×2 (09:00→20:59)
[2020-04-09] MEDS: OLANZapine INTRAMUSCULAR 10MG VIAL IM PRN ×2 (10:31→21:08)
[2020-04-10] MEDS ORDERED: HALOPERIDOL 5MG/ML VIAL (J1630 PER 1) IM ONE (03:00)
[2020-04-10] MEDS ORDERED: diphenhydrAMINE 50MG/ML VIAL (J1200) IM ONE (03:00)
[2020-04-10] MEDS ORDERED: LORazepam 2 MG/ML VIAL IM ONE (03:00)
[2020-04-10] MEDS: LEVOTHYROXINE 100MCG TABLET (0.1MG) PO SCH (05:46)
--- NOTE | 2020-04-10 07:47 | MHIPNPDOC ---
[facility] Progress Note Progress Note DATE OF SERVICE: 04/10/20 Subjective HPI: Latrice presents today for a check-in. She is highly distractible and unengaged in any reasonable conversation. She continues to try to touch my badge necessitating me to exit the situation multiple times. She is still distorted and becomes quite agitated when stopped. Objective Speech: Poor insight and judgement. tangential, nonlinear, pressure speech. Normal volume. incoherent. Assessment F25.0 Schizoaffective disorder, bipolar type Plan Continue medications and increase inVega to 6 mg BID with Zyprexa 15 mg. Vital Signs Vital Signs Date Time Temp Pulse Resp B/P (MAP) Pulse Ox O2 Delivery O2 Flow Rate FiO2 04/05/20 16:07 98.2 89 16 170/108 (128) 99 Room Air Current Medications Current Medications Medications (Trade) Dose Ordered Sig/Ruth Route PRN Reason Start Time Stop Time Status Last Admin Dose Admin Acetaminophen (Tylenol Tab) 650 mg Q6HP PRN PO HEADACHE or DISCOMFORT 12/23/19 01:00 03/25/20 13:23 DC 02/03/20 14:04 Acetaminophen (Tylenol Tab) 650 mg Q6HP PRN PO HEADACHE OR DISCOMFORT 03/28/20 15:00 Al Hydrox/Mg Hydrox/Simethicone (Mylanta) 30 ml Q4HP PRN PO HEARTBURN/INDIGESTION 12/23/19 01:00 03/25/20 13:23 DC Al Hydrox/Mg Hydrox/Simethicone (Mylanta) 30 ml Q4HP PRN PO HEARTBURN/INDIGESTION 03/28/20 15:00 Benztropine Mesylate (Cogentin) 1 mg BID PO 04/07/20 09:00 04/07/20 22:05 Chlorpromazine HCl (Thorazine) 50 mg STAT STAT IM 02/01/20 21:01 02/01/20 21:03 DC 02/01/20 21:07 Chlorpromazine HCl (Thorazine) 50 mg STAT STAT IM 02/05/20 16:29 02/05/20 16:34 DC 02/05/20 16:38 Chlorpromazine HCl (Thorazine) 50 mg STAT STAT IM 02/06/20 14:47 02/06/20 14:49 DC 02/06/20 14:54 Chlorpromazine HCl (Thorazine) 100 mg Q6HP PRN PO AGITATION 12/28/19 14:00 12/28/19 14:00 DC Chlorpromazine HCl (Thorazine) 100 mg STAT STAT IM 12/29/19 13:02 12/29/19 13:04 DC 12/29/19 13:32 Chlorpromazine HCl (Thorazine) 100 mg STAT STAT IM 01/31/20 21:38 01/31/20 21:40 DC 01/31/20 21:42 Chlorpromazine HCl (Thorazine) 150 mg Q6HP PRN PO AGITATION/anxiety 12/28/19 14:00 01/04/20 13:34 DC 01/04/20 09:25 Chlorpromazine HCl (Thorazine) 150 mg STAT STAT IM 01/23/20 19:56 01/23/20 19:58 DC 01/23/20 19:59 Chlorpromazine HCl (Thorazine) 150 mg STAT STAT IM 01/27/20 22:16 01/27/20 22:17 DC 01/27/20 22:54 Chlorpromazine HCl (Thorazine) 150 mg TID PO 01/04/20 16:00 03/25/20 13:13 DC 02/25/20 17:20 Chlorpromazine HCl (Thorazine) 150 mg TID PO 03/28/20 21:00 04/05/20 15:35 DC Clozapine (Clozaril) 12.5 mg QHS PO 01/06/20 21:00 01/12/20 09:29 DC 01/11/20 20:13 Clozapine (Clozaril) 25 mg BID PO 01/14/20 21:00 01/18/20 09:33 DC 01/16/20 21:17 Clozapine (Clozaril) 25 mg QHS PO 01/12/20 21:00 01/14/20 10:58 DC 01/13/20 22:43 Diphenhydramine HCl (Benadryl) 25 mg STAT STAT IM 04/01/20 21:59 04/01/20 22:01 DC 04/01/20 22:11 Diphenhydramine HCl (Benadryl) 50 mg Q4HP PRN PO ANXIETY/AGITATION 12/23/19 15:00 03/25/20 13:23 DC Diphenhydramine HCl (Benadryl) 50 mg Q4HP PRN PO ANXIETY/AGITATION 03/28/20 15:00 Diphenhydramine HCl (Benadryl) 50 mg STAT STAT IM 12/22/19 21:28 12/22/19 21:30 DC 12/22/19 22:03 Diphenhydramine HCl (Benadryl) 50 mg STAT STAT IM 01/23/20 01:38 01/23/20 01:40 DC 01/23/20 01:49 Diphenhydramine HCl (Benadryl) 50 mg STAT STAT IM 01/23/20 19:56 01/23/20 19:58 DC 01/23/20 20:00 Diphenhydramine HCl (Benadryl) 50 mg STAT STAT IM 01/26/20 16:38 01/26/20 16:42 DC 01/26/20 16:59 Diphenhydramine HCl (Benadryl) 50 mg STAT STAT IM 01/27/20 20:17 01/27/20 20:20 DC 01/27/20 20:32 Diphenhydramine HCl (Benadryl) 50 mg STAT STAT IM 01/31/20 20:14 01/31/20 20:16 DC 01/31/20 20:21 Diphenhydramine HCl (Benadryl) 50 mg STAT STAT IM 02/02/20 13:33 02/02/20 13:37 DC 02/02/20 13:45 Diphenhydramine HCl (Benadryl) 50 mg STAT STAT IM 02/02/20 16:52 02/02/20 16:55 DC 02/02/20 17:09 Diphenhydramine HCl (Benadryl) 50 mg STAT STAT IM 02/15/20 14:29 02/15/20 14:30 DC 02/15/20 14:51 Diphenhydramine HCl (Benadryl) 50 mg STAT STAT IM 04/01/20 06:43 04/01/20 06:45 DC 04/01/20 06:56 Docusate Sodium (Colace) 100 mg DAILY PO 01/08/20 09:00 02/07/20 08:59 DC 02/03/20 10:23 Fluphenazine HCl (Prolixin) 10 mg BID PO 12/23/19 09:00 12/28/19 09:42 DC Haloperidol (Haldol) 5 mg BID PO 01/18/20 09:00 03/25/20 13:22 DC 02/19/20 19:56 Haloperidol (Haldol) 5 mg BID PO 03/28/20 21:00 04/05/20 15:35 DC Haloperidol (Haldol) 5 mg STAT STAT IM 02/05/20 14:41 02/05/20 14:42 DC 02/05/20 14:50 Haloperidol (Haldol) 5 mg STAT STAT IM 04/01/20 06:43 04/01/20 06:45 DC 04/01/20 06:56 Haloperidol (Haldol) 5 mg STAT STAT IM 04/01/20 21:59 04/01/20 22:01 DC 04/01/20 22:11 Haloperidol (Haldol) 10 mg STAT STAT IM 01/23/20 01:38 01/23/20 01:40 DC 01/23/20 01:49 Haloperidol (Haldol) 10 mg STAT STAT IM 01/23/20 21:42 01/23/20 21:44 DC 01/23/20 21:55 Haloperidol (Haldol) 10 mg STAT STAT IM 01/24/20 23:45 01/24/20 23:47 DC 01/25/20 00:04 Haloperidol (Haldol) 10 mg STAT STAT IM 01/25/20 02:22 01/25/20 02:24 DC 01/25/20 02:27 Haloperidol (Haldol) 10 mg STAT STAT IM 01/26/20 16:50 01/26/20 16:52 DC 01/26/20 16:58 Haloperidol (Haldol) 10 mg STAT STAT IM 01/27/20 20:17 01/27/20 20:20 DC 01/27/20 20:32 Haloperidol (Haldol) 10 mg STAT STAT IM 01/31/20 20:14 01/31/20 20:16 DC 01/31/20 20:21 Haloperidol (Haldol) 10 mg STAT STAT IM 02/01/20 19:35 02/01/20 19:37 DC 02/01/20 19:41 Haloperidol (Haldol) 10 mg STAT STAT IM 02/02/20 13:33 02/02/20 13:37 DC 02/02/20 13:46 Haloperidol (Haldol) 10 mg STAT STAT IM 02/02/20 16:52 02/02/20 16:55 DC 02/02/20 17:09 Haloperidol (Haldol) 10 mg STAT STAT PO 01/26/20 16:38 01/26/20 16:52 DC Levothyroxine Sodium (Synthroid) 100 mcg DAILY@06 PO 12/24/19 06:00 03/25/20 13:23 DC 01/17/20 06:17 Levothyroxine Sodium (Synthroid) 100 mcg DAILY@06 PO 03/29/20 06:00 Lisinopril (Prinivil) 5 mg DAILY PO 04/06/20 09:00 [place] Carbonate (Eskalith Oral Solution) 300 mg BID PO 12/23/19 09:00 12/28/19 09:41 DC 12/28/19 09:35 [place] Carbonate (Eskalith Oral Solution) 450 mg BID PO 12/28/19 21:00 12/31/19 10:58 DC 12/31/19 08:37 [place] Carbonate ([place] Carbonate) 450 mg BID PO 12/31/19 21:00 03/28/20 07:14 DC 02/03/20 10:22 [place] Carbonate ([place] Carbonate) 450 mg BID PO 03/28/20 21:00 04/05/20 15:35 DC Lorazepam (Ativan) 1 mg STAT STAT IM 01/24/20 23:45 01/24/20 23:47 DC 01/25/20 00:04 Lorazepam (Ativan) 1 mg STAT STAT IM 02/06/20 14:47 02/06/20 14:49 DC 02/06/20 14:54 Lorazepam (Ativan) 2 mg STAT STAT IM 01/23/20 01:38 01/23/20 01:40 DC 01/23/20 01:49 Lorazepam (Ativan) 2 mg STAT STAT IM 01/23/20 21:42 01/23/20 21:44 DC 01/23/20 21:56 Lorazepam (Ativan) 2 mg STAT STAT IM 01/26/20 16:38 01/26/20 16:42 DC 01/26/20 16:59 Lorazepam (Ativan) 2 mg STAT STAT IM 01/27/20 20:17 01/27/20 20:20 DC 01/27/20 20:31 Lorazepam (Ativan) 2 mg STAT STAT IM 01/31/20 20:14 01/31/20 20:16 DC 01/31/20 20:21 Lorazepam (Ativan) 2 mg STAT STAT IM 02/01/20 19:35 02/01/20 19:37 DC 02/01/20 19:41 Lorazepam (Ativan) 2 mg STAT STAT IM 02/02/20 13:33 02/02/20 13:37 DC 02/02/20 13:46 Lorazepam (Ativan) 2 mg STAT STAT IM 02/02/20 16:52 02/02/20 16:55 DC 02/02/20 17:09 Lorazepam (Ativan) 2 mg STAT STAT IM 02/05/20 16:29 02/05/20 16:34 DC 02/05/20 16:38 Magnesium Hydroxide (Milk Of Magnesia) 30 ml DAILYPRN PRN PO CONSTIPATION 12/23/19 01:00 03/25/20 13:23 DC Magnesium Hydroxide (Milk Of Magnesia) 30 ml DAILYPRN PRN PO CONSTIPATION 03/28/20 15:00 Miscellaneous (Unresolved Clarification Entry) SEE LABEL COMMENTS DAILY XX 01/21/20 09:00 01/21/20 08:04 DC Miscellaneous (Unresolved Clarification Entry) SEE LABEL COMMENTS DAILY XX 01/30/20 09:00 01/30/20 13:01 DC Miscellaneous (Unresolved Clarification Entry) SEE LABEL COMMENTS DAILY XX 02/02/20 09:00 02/04/20 09:30 DC Miscellaneous (Unresolved Clarification Entry) SEE LABEL COMMENTS DAILY XX 02/19/20 09:00 02/20/20 13:13 DC Miscellaneous (Unresolved Clarification Entry) SEE LABEL COMMENTS DAILY XX 02/16/20 09:00 02/16/20 09:59 DC Olanzapine (Zyprexa Intramuscular) 10 mg BIDP PRN IM If refuses invega 04/05/20 19:30 04/09/20 21:08 Paliperidone (Invega) 3 mg BID PO 04/05/20 21:00 04/07/20 22:05 Propranolol HCl (Inderal) 10 mg Q6H PRN PO restlessness 04/07/20 09:15 Trazodone HCl (Desyrel) 50 mg QHSP PRN PO INSOMNIA 12/23/19 01:00 03/25/20 13:23 DC 02/29/20 22:53 Trazodone HCl (Desyrel) 50 mg QHSP PRN PO INSOMNIA 03/28/20 15:00 04/07/20 22:05 Allergies Coded Allergies: Sulfa (Sulfonamide Antibiotics) (Verified Allergy, Severe, hives, 04/25/19) amoxicillin (Verified Allergy, Intermediate, rash, 04/25/19) azithromycin (Verified Allergy, Intermediate, rash, 04/25/19) LYRIC REID DO Apr 10, 2020 07:47
[2020-04-10] MEDS: BENZTROPINE 1 MG TAB PO SCH ×2 (09:00→21:00)
[2020-04-10] MEDS: PALIPERIDONE 6 MG ER TAB (INVEGA) PO SCH ×2 (09:00→21:00)
[2020-04-10] MEDS: lisinopriL 5 MG TAB PO SCH (09:00)
[2020-04-10] MEDS: OLANZapine INTRAMUSCULAR 10MG VIAL IM PRN (10:24)
[2020-04-10] MEDS ORDERED: diphenhydrAMINE 50MG/ML VIAL (J1200) IM STA (13:23)
--- NOTE | 2020-04-10 13:30 | MHIR ---
General Date: Apr 10, 2020 Time Initiated: 13:00 Restraint Documentation Order/Evaluation FACE TO FACE: Yes PHYSICIAN ASSESSMENT: intrusive behavior, attempting to grab this provider, chasing him down halls, yelling, threatening REASON FOR RESTRAINT: Patient poses imminent danger of harming self or others: as above DE-ESCALATION INTERVENTIONS ATTEMPTED BEFORE USE OF RESTRAINTS: verbal, medicines [MECHANICAL AND/OR CHEMICAL] RESTRAINTS USED: 4 point LENGTH OF TIME ORDERED IN RESTRAINTS: 240 minutes. WHEN TO DISCONTINUE RESTRAINTS: when in behavioral control Post evaluation of restraint due in 24 hours. LYRIC REID DO Apr 10, 2020 13:30
[2020-04-10] MEDS ORDERED: OLANZapine INTRAMUSCULAR 10MG VIAL IM STA (15:06)
[2020-04-10] MEDS ORDERED: chlorproMAZINE INJ 50MG/2ML AMP (J3230) IM ONE (20:15)
[2020-04-10] MEDS: traZODone 50 MG TAB PO PRN (23:36)
[2020-04-10] MEDS: diphenhydrAMINE 50MG CAP PO PRN (23:36)
[2020-04-11] MEDS: LEVOTHYROXINE 100MCG TABLET (0.1MG) PO SCH (05:51)
[2020-04-11] MEDS: lisinopriL 5 MG TAB PO SCH (09:00)
[2020-04-11] MEDS: PALIPERIDONE 6 MG ER TAB (INVEGA) PO SCH ×2 (09:00→21:00)
[2020-04-11] MEDS: BENZTROPINE 1 MG TAB PO SCH ×2 (09:00→21:00)
--- NOTE | 2020-04-11 11:02 | MHIPNPDOC ---
[facility] Progress Note Progress Note DATE OF SERVICE: 04/11/20 HPI: Latrice is met with today, however, is highly distorted and attempts to touch providers badge multiple times. Patient appears obsessed and follows provider around for the majority of the day. Shes still hyper-verbal, nearly incoherent and did need to be coded later on the day. Objective Appearance: Well groomed. Well nourished. Appears to be stated age. Affect: Flat. Speech: Hyper-verbal. Tangential. Judgement: Poor. Insight: Poor. Assessment F25.0 Schizoaffective disorder, bipolar type Plan Continue Zyprexa with Invega oral as treatment over objection protocol. Will consider changing if she doesnt make any strong improvement. Vital Signs Vital Signs Date Time Temp Pulse Resp B/P (MAP) Pulse Ox O2 Delivery O2 Flow Rate FiO2 04/05/20 16:07 98.2 89 16 170/108 (128) 99 Room Air Current Medications Current Medications Medications (Trade) Dose Ordered Sig/Ruth Route PRN Reason Start Time Stop Time Status Last Admin Dose Admin Acetaminophen (Tylenol Tab) 650 mg Q6HP PRN PO HEADACHE or DISCOMFORT 12/23/19 01:00 03/25/20 13:23 DC 02/03/20 14:04 Acetaminophen (Tylenol Tab) 650 mg Q6HP PRN PO HEADACHE OR DISCOMFORT 03/28/20 15:00 Al Hydrox/Mg Hydrox/Simethicone (Mylanta) 30 ml Q4HP PRN PO HEARTBURN/INDIGESTION 12/23/19 01:00 03/25/20 13:23 DC Al Hydrox/Mg Hydrox/Simethicone (Mylanta) 30 ml Q4HP PRN PO HEARTBURN/INDIGESTION 03/28/20 15:00 Benztropine Mesylate (Cogentin) 1 mg BID PO 04/07/20 09:00 04/07/20 22:05 Chlorpromazine HCl (Thorazine) 50 mg STAT STAT IM 02/01/20 21:01 02/01/20 21:03 DC 02/01/20 21:07 Chlorpromazine HCl (Thorazine) 50 mg STAT STAT IM 02/05/20 16:29 02/05/20 16:34 DC 02/05/20 16:38 Chlorpromazine HCl (Thorazine) 50 mg STAT STAT IM 02/06/20 14:47 02/06/20 14:49 DC 02/06/20 14:54 Chlorpromazine HCl (Thorazine) 100 mg Q6HP PRN PO AGITATION 12/28/19 14:00 12/28/19 14:00 DC Chlorpromazine HCl (Thorazine) 100 mg STAT STAT IM 12/29/19 13:02 12/29/19 13:04 DC 12/29/19 13:32 Chlorpromazine HCl (Thorazine) 100 mg STAT STAT IM 01/31/20 21:38 01/31/20 21:40 DC 01/31/20 21:42 Chlorpromazine HCl (Thorazine) 150 mg Q6HP PRN PO AGITATION/anxiety 12/28/19 14:00 01/04/20 13:34 DC 01/04/20 09:25 Chlorpromazine HCl (Thorazine) 150 mg STAT STAT IM 01/23/20 19:56 01/23/20 19:58 DC 01/23/20 19:59 Chlorpromazine HCl (Thorazine) 150 mg STAT STAT IM 01/27/20 22:16 01/27/20 22:17 DC 01/27/20 22:54 Chlorpromazine HCl (Thorazine) 150 mg TID PO 01/04/20 16:00 03/25/20 13:13 DC 02/25/20 17:20 Chlorpromazine HCl (Thorazine) 150 mg TID PO 03/28/20 21:00 04/05/20 15:35 DC Clozapine (Clozaril) 12.5 mg QHS PO 01/06/20 21:00 01/12/20 09:29 DC 01/11/20 20:13 Clozapine (Clozaril) 25 mg BID PO 01/14/20 21:00 01/18/20 09:33 DC 01/16/20 21:17 Clozapine (Clozaril) 25 mg QHS PO 01/12/20 21:00 01/14/20 10:58 DC 01/13/20 22:43 Diphenhydramine HCl (Benadryl) 25 mg STAT STAT IM 04/01/20 21:59 04/01/20 22:01 DC 04/01/20 22:11 Diphenhydramine HCl (Benadryl) 50 mg Q4HP PRN PO ANXIETY/AGITATION 12/23/19 15:00 03/25/20 13:23 DC Diphenhydramine HCl (Benadryl) 50 mg Q4HP PRN PO ANXIETY/AGITATION 03/28/20 15:00 04/10/20 23:36 Diphenhydramine HCl (Benadryl) 50 mg STAT STAT IM 12/22/19 21:28 12/22/19 21:30 DC 12/22/19 22:03 Diphenhydramine HCl (Benadryl) 50 mg STAT STAT IM 01/23/20 01:38 01/23/20 01:40 DC 01/23/20 01:49 Diphenhydramine HCl (Benadryl) 50 mg STAT STAT IM 01/23/20 19:56 01/23/20 19:58 DC 01/23/20 20:00 Diphenhydramine HCl (Benadryl) 50 mg STAT STAT IM 01/26/20 16:38 01/26/20 16:42 DC 01/26/20 16:59 Diphenhydramine HCl (Benadryl) 50 mg STAT STAT IM 01/27/20 20:17 01/27/20 20:20 DC 01/27/20 20:32 Diphenhydramine HCl (Benadryl) 50 mg STAT STAT IM 01/31/20 20:14 01/31/20 20:16 DC 01/31/20 20:21 Diphenhydramine HCl (Benadryl) 50 mg STAT STAT IM 02/02/20 13:33 02/02/20 13:37 DC 02/02/20 13:45 Diphenhydramine HCl (Benadryl) 50 mg STAT STAT IM 02/02/20 16:52 02/02/20 16:55 DC 02/02/20 17:09 Diphenhydramine HCl (Benadryl) 50 mg STAT STAT IM 02/15/20 14:29 02/15/20 14:30 DC 02/15/20 14:51 Diphenhydramine HCl (Benadryl) 50 mg STAT STAT IM 04/01/20 06:43 04/01/20 06:45 DC 04/01/20 06:56 Diphenhydramine HCl (Benadryl) 100 mg STAT STAT IM 04/10/20 13:23 04/10/20 13:25 DC 04/10/20 13:29 Docusate Sodium (Colace) 100 mg DAILY PO 01/08/20 09:00 02/07/20 08:59 DC 02/03/20 10:23 Fluphenazine HCl (Prolixin) 10 mg BID PO 12/23/19 09:00 12/28/19 09:42 DC Haloperidol (Haldol) 5 mg BID PO 01/18/20 09:00 03/25/20 13:22 DC 02/19/20 19:56 Haloperidol (Haldol) 5 mg BID PO 03/28/20 21:00 04/05/20 15:35 DC Haloperidol (Haldol) 5 mg STAT STAT IM 02/05/20 14:41 02/05/20 14:42 DC 02/05/20 14:50 Haloperidol (Haldol) 5 mg STAT STAT IM 04/01/20 06:43 04/01/20 06:45 DC 04/01/20 06:56 Haloperidol (Haldol) 5 mg STAT STAT IM 04/01/20 21:59 04/01/20 22:01 DC 04/01/20 22:11 Haloperidol (Haldol) 10 mg STAT STAT IM 01/23/20 01:38 01/23/20 01:40 DC 01/23/20 01:49 Haloperidol (Haldol) 10 mg STAT STAT IM 01/23/20 21:42 01/23/20 21:44 DC 01/23/20 21:55 Haloperidol (Haldol) 10 mg STAT STAT IM 01/24/20 23:45 01/24/20 23:47 DC 01/25/20 00:04 Haloperidol (Haldol) 10 mg STAT STAT IM 01/25/20 02:22 01/25/20 02:24 DC 01/25/20 02:27 Haloperidol (Haldol) 10 mg STAT STAT IM 01/26/20 16:50 01/26/20 16:52 DC 01/26/20 16:58 Haloperidol (Haldol) 10 mg STAT STAT IM 01/27/20 20:17 01/27/20 20:20 DC 01/27/20 20:32 Haloperidol (Haldol) 10 mg STAT STAT IM 01/31/20 20:14 01/31/20 20:16 DC 01/31/20 20:21 Haloperidol (Haldol) 10 mg STAT STAT IM 02/01/20 19:35 02/01/20 19:37 DC 02/01/20 19:41 Haloperidol (Haldol) 10 mg STAT STAT IM 02/02/20 13:33 02/02/20 13:37 DC 02/02/20 13:46 Haloperidol (Haldol) 10 mg STAT STAT IM 02/02/20 16:52 02/02/20 16:55 DC 02/02/20 17:09 Haloperidol (Haldol) 10 mg STAT STAT PO 01/26/20 16:38 01/26/20 16:52 DC Levothyroxine Sodium (Synthroid) 100 mcg DAILY@06 PO 12/24/19 06:00 03/25/20 13:23 DC 01/17/20 06:17 Levothyroxine Sodium (Synthroid) 100 mcg DAILY@06 PO 03/29/20 06:00 Lisinopril (Prinivil) 5 mg DAILY PO 04/06/20 09:00 [place] Carbonate (Eskalith Oral Solution) 300 mg BID PO 12/23/19 09:00 12/28/19 09:41 DC 12/28/19 09:35 [place] Carbonate (Eskalith Oral Solution) 450 mg BID PO 12/28/19 21:00 12/31/19 10:58 DC 12/31/19 08:37 [place] Carbonate ([place] Carbonate) 450 mg BID PO 12/31/19 21:00 03/28/20 07:14 DC 02/03/20 10:22 [place] Carbonate ([place] Carbonate) 450 mg BID PO 03/28/20 21:00 04/05/20 15:35 DC Lorazepam (Ativan) 1 mg STAT STAT IM 01/24/20 23:45 01/24/20 23:47 DC 01/25/20 00:04 Lorazepam (Ativan) 1 mg STAT STAT IM 02/06/20 14:47 02/06/20 14:49 DC 02/06/20 14:54 Lorazepam (Ativan) 2 mg STAT STAT IM 01/23/20 01:38 01/23/20 01:40 DC 01/23/20 01:49 Lorazepam (Ativan) 2 mg STAT STAT IM 01/23/20 21:42 01/23/20 21:44 DC 01/23/20 21:56 Lorazepam (Ativan) 2 mg STAT STAT IM 01/26/20 16:38 01/26/20 16:42 DC 01/26/20 16:59 Lorazepam (Ativan) 2 mg STAT STAT IM 01/27/20 20:17 01/27/20 20:20 DC 01/27/20 20:31 Lorazepam (Ativan) 2 mg STAT STAT IM 01/31/20 20:14 01/31/20 20:16 DC 01/31/20 20:21 Lorazepam (Ativan) 2 mg STAT STAT IM 02/01/20 19:35 02/01/20 19:37 DC 02/01/20 19:41 Lorazepam (Ativan) 2 mg STAT STAT IM 02/02/20 13:33 02/02/20 13:37 DC 02/02/20 13:46 Lorazepam (Ativan) 2 mg STAT STAT IM 02/02/20 16:52 02/02/20 16:55 DC 02/02/20 17:09 Lorazepam (Ativan) 2 mg STAT STAT IM 02/05/20 16:29 02/05/20 16:34 DC 02/05/20 16:38 Magnesium Hydroxide (Milk Of Magnesia) 30 ml DAILYPRN PRN PO CONSTIPATION 12/23/19 01:00 03/25/20 13:23 DC Magnesium Hydroxide (Milk Of Magnesia) 30 ml DAILYPRN PRN PO CONSTIPATION 03/28/20 15:00 Miscellaneous (Unresolved Clarification Entry) SEE LABEL COMMENTS DAILY XX 01/21/20 09:00 01/21/20 08:04 DC Miscellaneous (Unresolved Clarification Entry) SEE LABEL COMMENTS DAILY XX 01/30/20 09:00 01/30/20 13:01 DC Miscellaneous (Unresolved Clarification Entry) SEE LABEL COMMENTS DAILY XX 02/02/20 09:00 02/04/20 09:30 DC Miscellaneous (Unresolved Clarification Entry) SEE LABEL COMMENTS DAILY XX 02/19/20 09:00 02/20/20 13:13 DC Miscellaneous (Unresolved Clarification Entry) SEE LABEL COMMENTS DAILY XX 02/16/20 09:00 02/16/20 09:59 DC Olanzapine (Zyprexa Intramuscular) 10 mg BIDP PRN IM If refuses invega 04/05/20 19:30 04/10/20 08:42 DC 04/09/20 21:08 Olanzapine (Zyprexa Intramuscular) 15 mg BIDP PRN IM If refuses invega 04/10/20 08:45 04/10/20 10:24 Olanzapine (Zyprexa Intramuscular) 15 mg STAT STAT IM 04/10/20 15:06 04/10/20 15:09 DC 04/10/20 15:23 Paliperidone (Invega) 3 mg BID PO 04/05/20 21:00 04/10/20 08:42 DC 04/07/20 22:05 Paliperidone (Invega) 6 mg BID PO 04/10/20 09:00 Propranolol HCl (Inderal) 10 mg Q6H PRN PO restlessness 04/07/20 09:15 Trazodone HCl (Desyrel) 50 mg QHSP PRN PO INSOMNIA 12/23/19 01:00 03/25/20 13:23 DC 02/29/20 22:53 Trazodone HCl (Desyrel) 50 mg QHSP PRN PO INSOMNIA 03/28/20 15:00 04/10/20 23:36 Allergies Coded Allergies: Sulfa (Sulfonamide Antibiotics) (Verified Allergy, Severe, hives, 04/25/19) amoxicillin (Verified Allergy, Intermediate, rash, 04/25/19) azithromycin (Verified Allergy, Intermediate, rash, 04/25/19) LYRIC REID DO Apr 11, 2020 11:02
[2020-04-11] MEDS: OLANZapine INTRAMUSCULAR 10MG VIAL IM PRN ×2 (11:09→23:26)
--- NOTE | 2020-04-11 11:25 | MHPR ---
General Date: Apr 11, 2020 Time: 11:25 Post-Restraint Evaluation THE OUTCOME OF THE RESTRAINT: improved behavioral control EFFECTIVENESS OF THE RESTRAINT: Mechanical and/or chemical: positive ANY EVIDENCE THAT THE PATIENT WAS AFFECTED EMOTIONALLY: no ANY NEED FOR COUNSELING/ASSISTANCE: no CHANGES IN TREATMENT PLAN: increase medicines RECOMMENDATIONS FOR FUTURE INCIDENTS: n/a LYRIC REID DO Apr 11, 2020 11:25
[2020-04-11] MEDS ORDERED: chlorproMAZINE INJ 50MG/2ML AMP (J3230) IM STA (16:17)
[2020-04-11] MEDS ORDERED: diphenhydrAMINE 50MG/ML VIAL (J1200) IM STA (16:17)
[2020-04-11] MEDS: diphenhydrAMINE 50MG CAP PO PRN (21:59)
[2020-04-11] MEDS: traZODone 50 MG TAB PO PRN (21:59)
[2020-04-11] MEDS ORDERED: chlorproMAZINE INJ 50MG/2ML AMP (J3230) IM ONE (23:30)
[2020-04-11] MEDS ORDERED: diphenhydrAMINE 50MG/ML VIAL (J1200) IM ONE (23:30)
[2020-04-12] MEDS: LEVOTHYROXINE 100MCG TABLET (0.1MG) PO SCH (05:06)
--- NOTE | 2020-04-12 08:54 | MHIPNPDOC ---
[facility] Progress Note Progress Note DATE OF SERVICE: 04/12/20 Subjective HPI: aLtrice is still quite distorted and not able to answer questions in any coherent manner. She is giggling and laughing nearly consistently every few minutes and responding to unseen others. Objective Appearance: Well nourished. Well groomed. Appears to be stated age. Speech: Incoherent. Cognition: Impaired secondary to thought process. Thought Form: Non-linear. Tangential. Judgement: Poor. Insight: Poor. Assessment F25.0 Schizoaffective disorder, bipolar type Plan Discontinue Zyprexa, patient reportedly gets incontinent when shes given the injections. She has not taken the oral Invega enough that its sufficient for a trial. Will switch to Haldol, which is the second option on her treatment over objection form 10 mg BID PO/IM. Continue to pursue [place] transfer. Current Medications Current Medications Medications (Trade) Dose Ordered Sig/Ruth Route PRN Reason Start Time Stop Time Status Last Admin Dose Admin Acetaminophen (Tylenol Tab) 650 mg Q6HP PRN PO HEADACHE or DISCOMFORT 12/23/19 01:00 03/25/20 13:23 DC 02/03/20 14:04 Acetaminophen (Tylenol Tab) 650 mg Q6HP PRN PO HEADACHE OR DISCOMFORT 03/28/20 15:00 Al Hydrox/Mg Hydrox/Simethicone (Mylanta) 30 ml Q4HP PRN PO HEARTBURN/INDIGESTION 12/23/19 01:00 03/25/20 13:23 DC Al Hydrox/Mg Hydrox/Simethicone (Mylanta) 30 ml Q4HP PRN PO HEARTBURN/INDIGESTION 03/28/20 15:00 Benztropine Mesylate (Cogentin) 1 mg BID PO 04/07/20 09:00 04/07/20 22:05 Chlorpromazine HCl (Thorazine) 50 mg STAT STAT IM 02/01/20 21:01 02/01/20 21:03 DC 02/01/20 21:07 Chlorpromazine HCl (Thorazine) 50 mg STAT STAT IM 02/05/20 16:29 02/05/20 16:34 DC 02/05/20 16:38 Chlorpromazine HCl (Thorazine) 50 mg STAT STAT IM 02/06/20 14:47 02/06/20 14:49 DC 02/06/20 14:54 Chlorpromazine HCl (Thorazine) 50 mg STAT STAT IM 04/11/20 16:17 04/11/20 16:19 DC 04/11/20 16:30 Chlorpromazine HCl (Thorazine) 100 mg Q6HP PRN PO AGITATION 12/28/19 14:00 12/28/19 14:00 DC Chlorpromazine HCl (Thorazine) 100 mg STAT STAT IM 12/29/19 13:02 12/29/19 13:04 DC 12/29/19 13:32 Chlorpromazine HCl (Thorazine) 100 mg STAT STAT IM 01/31/20 21:38 01/31/20 21:40 DC 01/31/20 21:42 Chlorpromazine HCl (Thorazine) 150 mg Q6HP PRN PO AGITATION/anxiety 12/28/19 14:00 01/04/20 13:34 DC 01/04/20 09:25 Chlorpromazine HCl (Thorazine) 150 mg STAT STAT IM 01/23/20 19:56 01/23/20 19:58 DC 01/23/20 19:59 Chlorpromazine HCl (Thorazine) 150 mg STAT STAT IM 01/27/20 22:16 01/27/20 22:17 DC 01/27/20 22:54 Chlorpromazine HCl (Thorazine) 150 mg TID PO 01/04/20 16:00 03/25/20 13:13 DC 02/25/20 17:20 Chlorpromazine HCl (Thorazine) 150 mg TID PO 03/28/20 21:00 04/05/20 15:35 DC Clozapine (Clozaril) 12.5 mg QHS PO 01/06/20 21:00 01/12/20 09:29 DC 01/11/20 20:13 Clozapine (Clozaril) 25 mg BID PO 01/14/20 21:00 01/18/20 09:33 DC 01/16/20 21:17 Clozapine (Clozaril) 25 mg QHS PO 01/12/20 21:00 01/14/20 10:58 DC 01/13/20 22:43 Diphenhydramine HCl (Benadryl) 25 mg STAT STAT IM 04/01/20 21:59 04/01/20 22:01 DC 04/01/20 22:11 Diphenhydramine HCl (Benadryl) 25 mg STAT STAT IM 04/11/20 16:17 04/11/20 16:19 DC 04/11/20 16:30 Diphenhydramine HCl (Benadryl) 50 mg Q4HP PRN PO ANXIETY/AGITATION 12/23/19 15:00 03/25/20 13:23 DC Diphenhydramine HCl (Benadryl) 50 mg Q4HP PRN PO ANXIETY/AGITATION 03/28/20 15:00 04/11/20 21:59 Diphenhydramine HCl (Benadryl) 50 mg STAT STAT IM 12/22/19 21:28 12/22/19 21:30 DC 12/22/19 22:03 Diphenhydramine HCl (Benadryl) 50 mg STAT STAT IM 01/23/20 01:38 01/23/20 01:40 DC 01/23/20 01:49 Diphenhydramine HCl (Benadryl) 50 mg STAT STAT IM 01/23/20 19:56 01/23/20 19:58 DC 01/23/20 20:00 Diphenhydramine HCl (Benadryl) 50 mg STAT STAT IM 01/26/20 16:38 01/26/20 16:42 DC 01/26/20 16:59 Diphenhydramine HCl (Benadryl) 50 mg STAT STAT IM 01/27/20 20:17 01/27/20 20:20 DC 01/27/20 20:32 Diphenhydramine HCl (Benadryl) 50 mg STAT STAT IM 01/31/20 20:14 01/31/20 20:16 DC 01/31/20 20:21 Diphenhydramine HCl (Benadryl) 50 mg STAT STAT IM 02/02/20 13:33 02/02/20 13:37 DC 02/02/20 13:45 Diphenhydramine HCl (Benadryl) 50 mg STAT STAT IM 02/02/20 16:52 02/02/20 16:55 DC 02/02/20 17:09 Diphenhydramine HCl (Benadryl) 50 mg STAT STAT IM 02/15/20 14:29 02/15/20 14:30 DC 02/15/20 14:51 Diphenhydramine HCl (Benadryl) 50 mg STAT STAT IM 04/01/20 06:43 04/01/20 06:45 DC 04/01/20 06:56 Diphenhydramine HCl (Benadryl) 100 mg STAT STAT IM 04/10/20 13:23 04/10/20 13:25 DC 04/10/20 13:29 Docusate Sodium (Colace) 100 mg DAILY PO 01/08/20 09:00 02/07/20 08:59 DC 02/03/20 10:23 Fluphenazine HCl (Prolixin) 10 mg BID PO 12/23/19 09:00 12/28/19 09:42 DC Haloperidol (Haldol) 5 mg BID PO 01/18/20 09:00 03/25/20 13:22 DC 02/19/20 19:56 Haloperidol (Haldol) 5 mg BID PO 03/28/20 21:00 04/05/20 15:35 DC Haloperidol (Haldol) 5 mg STAT STAT IM 02/05/20 14:41 02/05/20 14:42 DC 02/05/20 14:50 Haloperidol (Haldol) 5 mg STAT STAT IM 04/01/20 06:43 04/01/20 06:45 DC 04/01/20 06:56 Haloperidol (Haldol) 5 mg STAT STAT IM 04/01/20 21:59 04/01/20 22:01 DC 04/01/20 22:11 Haloperidol (Haldol) 10 mg STAT STAT IM 01/23/20 01:38 01/23/20 01:40 DC 01/23/20 01:49 Haloperidol (Haldol) 10 mg STAT STAT IM 01/23/20 21:42 01/23/20 21:44 DC 01/23/20 21:55 Haloperidol (Haldol) 10 mg STAT STAT IM 01/24/20 23:45 01/24/20 23:47 DC 01/25/20 00:04 Haloperidol (Haldol) 10 mg STAT STAT IM 01/25/20 02:22 01/25/20 02:24 DC 01/25/20 02:27 Haloperidol (Haldol) 10 mg STAT STAT IM 01/26/20 16:50 01/26/20 16:52 DC 01/26/20 16:58 Haloperidol (Haldol) 10 mg STAT STAT IM 01/27/20 20:17 01/27/20 20:20 DC 01/27/20 20:32 Haloperidol (Haldol) 10 mg STAT STAT IM 01/31/20 20:14 01/31/20 20:16 DC 01/31/20 20:21 Haloperidol (Haldol) 10 mg STAT STAT IM 02/01/20 19:35 02/01/20 19:37 DC 02/01/20 19:41 Haloperidol (Haldol) 10 mg STAT STAT IM 02/02/20 13:33 02/02/20 13:37 DC 02/02/20 13:46 Haloperidol (Haldol) 10 mg STAT STAT IM 02/02/20 16:52 02/02/20 16:55 DC 02/02/20 17:09 Haloperidol (Haldol) 10 mg STAT STAT PO 01/26/20 16:38 01/26/20 16:52 DC Levothyroxine Sodium (Synthroid) 100 mcg DAILY@06 PO 12/24/19 06:00 03/25/20 13:23 DC 01/17/20 06:17 Levothyroxine Sodium (Synthroid) 100 mcg DAILY@06 PO 03/29/20 06:00 Lisinopril (Prinivil) 5 mg DAILY PO 04/06/20 09:00 [place] Carbonate (Eskalith Oral Solution) 300 mg BID PO 12/23/19 09:00 12/28/19 09:41 DC 12/28/19 09:35 [place] Carbonate (Eskalith Oral Solution) 450 mg BID PO 12/28/19 21:00 12/31/19 10:58 DC 12/31/19 08:37 [place] Carbonate ([place] Carbonate) 450 mg BID PO 12/31/19 21:00 03/28/20 07:14 DC 02/03/20 10:22 [place] Carbonate ([place] Carbonate) 450 mg BID PO 03/28/20 21:00 04/05/20 15:35 DC Lorazepam (Ativan) 1 mg STAT STAT IM 01/24/20 23:45 01/24/20 23:47 DC 01/25/20 00:04 Lorazepam (Ativan) 1 mg STAT STAT IM 02/06/20 14:47 02/06/20 14:49 DC 02/06/20 14:54 Lorazepam (Ativan) 2 mg STAT STAT IM 01/23/20 01:38 01/23/20 01:40 DC 01/23/20 01:49 Lorazepam (Ativan) 2 mg STAT STAT IM 01/23/20 21:42 01/23/20 21:44 DC 01/23/20 21:56 Lorazepam (Ativan) 2 mg STAT STAT IM 01/26/20 16:38 01/26/20 16:42 DC 01/26/20 16:59 Lorazepam (Ativan) 2 mg STAT STAT IM 01/27/20 20:17 01/27/20 20:20 DC 01/27/20 20:31 Lorazepam (Ativan) 2 mg STAT STAT IM 01/31/20 20:14 01/31/20 20:16 DC 01/31/20 20:21 Lorazepam (Ativan) 2 mg STAT STAT IM 02/01/20 19:35 02/01/20 19:37 DC 02/01/20 19:41 Lorazepam (Ativan) 2 mg STAT STAT IM 02/02/20 13:33 02/02/20 13:37 DC 02/02/20 13:46 Lorazepam (Ativan) 2 mg STAT STAT IM 02/02/20 16:52 02/02/20 16:55 DC 02/02/20 17:09 Lorazepam (Ativan) 2 mg STAT STAT IM 02/05/20 16:29 02/05/20 16:34 DC 02/05/20 16:38 Magnesium Hydroxide (Milk Of Magnesia) 30 ml DAILYPRN PRN PO CONSTIPATION 12/23/19 01:00 03/25/20 13:23 DC Magnesium Hydroxide (Milk Of Magnesia) 30 ml DAILYPRN PRN PO CONSTIPATION 03/28/20 15:00 Miscellaneous (Unresolved Clarification Entry) SEE LABEL COMMENTS DAILY XX 01/21/20 09:00 01/21/20 08:04 DC Miscellaneous (Unresolved Clarification Entry) SEE LABEL COMMENTS DAILY XX 01/30/20 09:00 01/30/20 13:01 DC Miscellaneous (Unresolved Clarification Entry) SEE LABEL COMMENTS DAILY XX 02/02/20 09:00 02/04/20 09:30 DC Miscellaneous (Unresolved Clarification Entry) SEE LABEL COMMENTS DAILY XX 02/19/20 09:00 02/20/20 13:13 DC Miscellaneous (Unresolved Clarification Entry) SEE LABEL COMMENTS DAILY XX 02/16/20 09:00 02/16/20 09:59 DC Olanzapine (Zyprexa Intramuscular) 10 mg BIDP PRN IM If refuses invega 04/05/20 19:30 04/10/20 08:42 DC 04/09/20 21:08 Olanzapine (Zyprexa Intramuscular) 15 mg BIDP PRN IM If refuses invega 04/10/20 08:45 04/11/20 11:09 Olanzapine (Zyprexa Intramuscular) 15 mg STAT STAT IM 04/10/20 15:06 04/10/20 15:09 DC 04/10/20 15:23 Paliperidone (Invega) 3 mg BID PO 04/05/20 21:00 04/10/20 08:42 DC 04/07/20 22:05 Paliperidone (Invega) 6 mg BID PO 04/10/20 09:00 Propranolol HCl (Inderal) 10 mg Q6H PRN PO restlessness 04/07/20 09:15 Trazodone HCl (Desyrel) 50 mg QHSP PRN PO INSOMNIA 12/23/19 01:00 03/25/20 13:23 DC 02/29/20 22:53 Trazodone HCl (Desyrel) 50 mg QHSP PRN PO INSOMNIA 03/28/20 15:00 04/11/20 21:59 Allergies Coded Allergies: Sulfa (Sulfonamide Antibiotics) (Verified Allergy, Severe, hives, 04/25/19) amoxicillin (Verified Allergy, Intermediate, rash, 04/25/19) azithromycin (Verified Allergy, Intermediate, rash, 04/25/19) LYRIC REID DO Apr 12, 2020 08:54
[2020-04-12] MEDS: BENZTROPINE 1 MG TAB PO SCH ×2 (09:00→21:00)
[2020-04-12] MEDS: lisinopriL 5 MG TAB PO SCH (09:00)
[2020-04-12] MEDS: HALOPERIDOL 5MG/ML VIAL (J1630 PER 1) IM PRN (10:46)
[2020-04-12] MEDS ORDERED: HALOPERIDOL 5MG/ML VIAL (J1630 PER 1) IM STA ×2 (18:14→18:44)
[2020-04-12] MEDS ORDERED: diphenhydrAMINE 50MG/ML VIAL (J1200) IM STA ×2 (18:14→18:44)
[2020-04-12] MEDS ORDERED: LORazepam 2 MG/ML VIAL IM STA ×2 (18:14→18:44)
--- NOTE | 2020-04-13 07:51 | MHPR ---
General Date: Apr 13, 2020 Time: 07:45 Post-Restraint Evaluation THE OUTCOME OF THE RESTRAINT: positive EFFECTIVENESS OF THE RESTRAINT: Mechanical and/or chemical: [Positive]. ANY EVIDENCE THAT THE PATIENT WAS AFFECTED EMOTIONALLY: n/a ANY NEED FOR COUNSELING/ASSISTANCE: n/a CHANGES IN TREATMENT PLAN:n/a RECOMMENDATIONS FOR FUTURE INCIDENTS: n/a LYRIC REID DO Apr 13, 2020 07:50
--- NOTE | 2020-04-13 08:13 | MHIPNPDOC ---
[facility] Progress Note Progress Note DATE OF SERVICE: 04/13/20 Subjective HPI: Latrice presents today for intrusive behavior. Patient was very intrusive and difficult to meet with as she continued to grab my badge. When I attempted to move away from her, she began propositioning me in a variety of manners. The majority of any interviewing time was spent with patient making bizarre statements, propositioning various male staff members and patients on the unit being bizarre and tangential. Objective Appearance: Appears to be stated age. Fair hygiene. Well nourished. Behavior: Appears to have significant paranoid delusions. Affect: Elated affect. Cognition: Impaired, secondary to thought process. Thought Form: Nonlinear, tangential, psychotic. Judgement: Poor. Insight: Poor. Assessment F25.0 Schizoaffective disorder, bipolar type Plan Continue Haldol, 10 mg BID with potential increase. Will consider going back for treatment over objection for thyroid treatment. It appears that the thyroid treatment does come in an injectable. Spoke to Dr. Ventura our hospitalist, who is open to participating in such medical treatment over objection and will likely pursue treatment for electroconvulsive as the patients treatment options run thin, and she is not responding well to Haldol. However, she does respond better when her thyroid is treated. Vital Signs Vital Signs Date Time Temp Pulse Resp B/P (MAP) Pulse Ox O2 Delivery O2 Flow Rate FiO2 04/12/20 09:48 Room Air Current Medications Current Medications Medications (Trade) Dose Ordered Sig/Ruth Route PRN Reason Start Time Stop Time Status Last Admin Dose Admin Acetaminophen (Tylenol Tab) 650 mg Q6HP PRN PO HEADACHE or DISCOMFORT 12/23/19 01:00 03/25/20 13:23 DC 02/03/20 14:04 Acetaminophen (Tylenol Tab) 650 mg Q6HP PRN PO HEADACHE OR DISCOMFORT 03/28/20 15:00 Al Hydrox/Mg Hydrox/Simethicone (Mylanta) 30 ml Q4HP PRN PO HEARTBURN/INDIGESTION 12/23/19 01:00 03/25/20 13:23 DC Al Hydrox/Mg Hydrox/Simethicone (Mylanta) 30 ml Q4HP PRN PO HEARTBURN/INDIGESTION 03/28/20 15:00 Benztropine Mesylate (Cogentin) 1 mg BID PO 04/07/20 09:00 04/07/20 22:05 Chlorpromazine HCl (Thorazine) 50 mg STAT STAT IM 02/01/20 21:01 02/01/20 21:03 DC 02/01/20 21:07 Chlorpromazine HCl (Thorazine) 50 mg STAT STAT IM 02/05/20 16:29 02/05/20 16:34 DC 02/05/20 16:38 Chlorpromazine HCl (Thorazine) 50 mg STAT STAT IM 02/06/20 14:47 02/06/20 14:49 DC 02/06/20 14:54 Chlorpromazine HCl (Thorazine) 50 mg STAT STAT IM 04/11/20 16:17 04/11/20 16:19 DC 04/11/20 16:30 Chlorpromazine HCl (Thorazine) 100 mg Q6HP PRN PO AGITATION 12/28/19 14:00 12/28/19 14:00 DC Chlorpromazine HCl (Thorazine) 100 mg STAT STAT IM 12/29/19 13:02 12/29/19 13:04 DC 12/29/19 13:32 Chlorpromazine HCl (Thorazine) 100 mg STAT STAT IM 01/31/20 21:38 01/31/20 21:40 DC 01/31/20 21:42 Chlorpromazine HCl (Thorazine) 150 mg Q6HP PRN PO AGITATION/anxiety 12/28/19 14:00 01/04/20 13:34 DC 01/04/20 09:25 Chlorpromazine HCl (Thorazine) 150 mg STAT STAT IM 01/23/20 19:56 01/23/20 19:58 DC 01/23/20 19:59 Chlorpromazine HCl (Thorazine) 150 mg STAT STAT IM 01/27/20 22:16 01/27/20 22:17 DC 01/27/20 22:54 Chlorpromazine HCl (Thorazine) 150 mg TID PO 01/04/20 16:00 03/25/20 13:13 DC 02/25/20 17:20 Chlorpromazine HCl (Thorazine) 150 mg TID PO 03/28/20 21:00 04/05/20 15:35 DC Clozapine (Clozaril) 12.5 mg QHS PO 01/06/20 21:00 01/12/20 09:29 DC 01/11/20 20:13 Clozapine (Clozaril) 25 mg BID PO 01/14/20 21:00 01/18/20 09:33 DC 01/16/20 21:17 Clozapine (Clozaril) 25 mg QHS PO 01/12/20 21:00 01/14/20 10:58 DC 01/13/20 22:43 Diphenhydramine HCl (Benadryl) 25 mg STAT STAT IM 04/01/20 21:59 04/01/20 22:01 DC 04/01/20 22:11 Diphenhydramine HCl (Benadryl) 25 mg STAT STAT IM 04/11/20 16:17 04/11/20 16:19 DC 04/11/20 16:30 Diphenhydramine HCl (Benadryl) 50 mg Q4HP PRN PO ANXIETY/AGITATION 12/23/19 15:00 03/25/20 13:23 DC Diphenhydramine HCl (Benadryl) 50 mg Q4HP PRN PO ANXIETY/AGITATION 03/28/20 15:00 04/11/20 21:59 Diphenhydramine HCl (Benadryl) 50 mg STAT STAT IM 12/22/19 21:28 12/22/19 21:30 DC 12/22/19 22:03 Diphenhydramine HCl (Benadryl) 50 mg STAT STAT IM 01/23/20 01:38 01/23/20 01:40 DC 01/23/20 01:49 Diphenhydramine HCl (Benadryl) 50 mg STAT STAT IM 01/23/20 19:56 01/23/20 19:58 DC 01/23/20 20:00 Diphenhydramine HCl (Benadryl) 50 mg STAT STAT IM 01/26/20 16:38 01/26/20 16:42 DC 01/26/20 16:59 Diphenhydramine HCl (Benadryl) 50 mg STAT STAT IM 01/27/20 20:17 01/27/20 20:20 DC 01/27/20 20:32 Diphenhydramine HCl (Benadryl) 50 mg STAT STAT IM 01/31/20 20:14 01/31/20 20:16 DC 01/31/20 20:21 Diphenhydramine HCl (Benadryl) 50 mg STAT STAT IM 02/02/20 13:33 02/02/20 13:37 DC 02/02/20 13:45 Diphenhydramine HCl (Benadryl) 50 mg STAT STAT IM 02/02/20 16:52 02/02/20 16:55 DC 02/02/20 17:09 Diphenhydramine HCl (Benadryl) 50 mg STAT STAT IM 02/15/20 14:29 02/15/20 14:30 DC 02/15/20 14:51 Diphenhydramine HCl (Benadryl) 50 mg STAT STAT IM 04/01/20 06:43 04/01/20 06:45 DC 04/01/20 06:56 Diphenhydramine HCl (Benadryl) 50 mg STAT STAT IM 04/12/20 18:14 04/12/20 18:18 DC 04/12/20 18:28 Diphenhydramine HCl (Benadryl) 50 mg STAT STAT IM 04/12/20 18:44 04/12/20 18:47 DC 04/12/20 19:00 Diphenhydramine HCl (Benadryl) 100 mg STAT STAT IM 04/10/20 13:23 04/10/20 13:25 DC 04/10/20 13:29 Docusate Sodium (Colace) 100 mg DAILY PO 01/08/20 09:00 02/07/20 08:59 DC 02/03/20 10:23 Fluphenazine HCl (Prolixin) 10 mg BID PO 12/23/19 09:00 12/28/19 09:42 DC Haloperidol (Haldol) 5 mg BID PO 01/18/20 09:00 03/25/20 13:22 DC 02/19/20 19:56 Haloperidol (Haldol) 5 mg BID PO 03/28/20 21:00 04/05/20 15:35 DC Haloperidol (Haldol) 5 mg STAT STAT IM 02/05/20 14:41 02/05/20 14:42 DC 02/05/20 14:50 Haloperidol (Haldol) 5 mg STAT STAT IM 04/01/20 06:43 04/01/20 06:45 DC 04/01/20 06:56 Haloperidol (Haldol) 5 mg STAT STAT IM 04/01/20 21:59 04/01/20 22:01 DC 04/01/20 22:11 Haloperidol (Haldol) 10 mg BID PO 04/12/20 09:00 Haloperidol (Haldol) 10 mg BIDP PRN IM IF REFUSES ORAL 04/12/20 09:00 04/12/20 10:46 Haloperidol (Haldol) 10 mg STAT STAT IM 01/23/20 01:38 01/23/20 01:40 DC 01/23/20 01:49 Haloperidol (Haldol) 10 mg STAT STAT IM 01/23/20 21:42 01/23/20 21:44 DC 01/23/20 21:55 Haloperidol (Haldol) 10 mg STAT STAT IM 01/24/20 23:45 01/24/20 23:47 DC 01/25/20 00:04 Haloperidol (Haldol) 10 mg STAT STAT IM 01/25/20 02:22 01/25/20 02:24 DC 01/25/20 02:27 Haloperidol (Haldol) 10 mg STAT STAT IM 01/26/20 16:50 01/26/20 16:52 DC 01/26/20 16:58 Haloperidol (Haldol) 10 mg STAT STAT IM 01/27/20 20:17 01/27/20 20:20 DC 01/27/20 20:32 Haloperidol (Haldol) 10 mg STAT STAT IM 01/31/20 20:14 01/31/20 20:16 DC 01/31/20 20:21 Haloperidol (Haldol) 10 mg STAT STAT IM 02/01/20 19:35 02/01/20 19:37 DC 02/01/20 19:41 Haloperidol (Haldol) 10 mg STAT STAT IM 02/02/20 13:33 02/02/20 13:37 DC 02/02/20 13:46 Haloperidol (Haldol) 10 mg STAT STAT IM 02/02/20 16:52 02/02/20 16:55 DC 02/02/20 17:09 Haloperidol (Haldol) 10 mg STAT STAT IM 04/12/20 18:14 04/12/20 18:18 DC 04/12/20 18:27 Haloperidol (Haldol) 10 mg STAT STAT IM 04/12/20 18:44 04/12/20 18:47 DC 04/12/20 19:00 Haloperidol (Haldol) 10 mg STAT STAT PO 01/26/20 16:38 01/26/20 16:52 DC Levothyroxine Sodium (Synthroid) 100 mcg DAILY@06 PO 12/24/19 06:00 03/25/20 13:23 DC 01/17/20 06:17 Levothyroxine Sodium (Synthroid) 100 mcg DAILY@06 PO 03/29/20 06:00 Lisinopril (Prinivil) 5 mg DAILY PO 04/06/20 09:00 [place] Carbonate (Eskalith Oral Solution) 300 mg BID PO 12/23/19 09:00 12/28/19 09:41 DC 12/28/19 09:35 [place] Carbonate (Eskalith Oral Solution) 450 mg BID PO 12/28/19 21:00 12/31/19 10:58 DC 12/31/19 08:37 [place] Carbonate ([place] Carbonate) 450 mg BID PO 12/31/19 21:00 03/28/20 07:14 DC 02/03/20 10:22 [place] Carbonate ([place] Carbonate) 450 mg BID PO 03/28/20 21:00 04/05/20 15:35 DC Lorazepam (Ativan) 1 mg STAT STAT IM 01/24/20 23:45 01/24/20 23:47 DC 01/25/20 00:04 Lorazepam (Ativan) 1 mg STAT STAT IM 02/06/20 14:47 02/06/20 14:49 DC 02/06/20 14:54 Lorazepam (Ativan) 2 mg STAT STAT IM 01/23/20 01:38 01/23/20 01:40 DC 01/23/20 01:49 Lorazepam (Ativan) 2 mg STAT STAT IM 01/23/20 21:42 01/23/20 21:44 DC 01/23/20 21:56 Lorazepam (Ativan) 2 mg STAT STAT IM 01/26/20 16:38 01/26/20 16:42 DC 01/26/20 16:59 Lorazepam (Ativan) 2 mg STAT STAT IM 01/27/20 20:17 01/27/20 20:20 DC 01/27/20 20:31 Lorazepam (Ativan) 2 mg STAT STAT IM 01/31/20 20:14 01/31/20 20:16 DC 01/31/20 20:21 Lorazepam (Ativan) 2 mg STAT STAT IM 02/01/20 19:35 02/01/20 19:37 DC 02/01/20 19:41 Lorazepam (Ativan) 2 mg STAT STAT IM 02/02/20 13:33 02/02/20 13:37 DC 02/02/20 13:46 Lorazepam (Ativan) 2 mg STAT STAT IM 02/02/20 16:52 02/02/20 16:55 DC 02/02/20 17:09 Lorazepam (Ativan) 2 mg STAT STAT IM 02/05/20 16:29 02/05/20 16:34 DC 02/05/20 16:38 Lorazepam (Ativan) 2 mg STAT STAT IM 04/12/20 18:14 04/12/20 18:18 DC 04/12/20 18:28 Lorazepam (Ativan) 2 mg STAT STAT IM 04/12/20 18:44 04/12/20 18:47 DC 04/12/20 19:00 Magnesium Hydroxide (Milk Of Magnesia) 30 ml DAILYPRN PRN PO CONSTIPATION 12/23/19 01:00 03/25/20 13:23 DC Magnesium Hydroxide (Milk Of Magnesia) 30 ml DAILYPRN PRN PO CONSTIPATION 03/28/20 15:00 Miscellaneous (Unresolved Clarification Entry) SEE LABEL COMMENTS DAILY XX 01/21/20 09:00 01/21/20 08:04 DC Miscellaneous (Unresolved Clarification Entry) SEE LABEL COMMENTS DAILY XX 01/30/20 09:00 01/30/20 13:01 DC Miscellaneous (Unresolved Clarification Entry) SEE LABEL COMMENTS DAILY XX 02/02/20 09:00 02/04/20 09:30 DC Miscellaneous (Unresolved Clarification Entry) SEE LABEL COMMENTS DAILY XX 02/19/20 09:00 02/20/20 13:13 DC Miscellaneous (Unresolved Clarification Entry) SEE LABEL COMMENTS DAILY XX 02/16/20 09:00 02/16/20 09:59 DC Olanzapine (Zyprexa Intramuscular) 10 mg BIDP PRN IM If refuses invega 04/05/20 19:30 04/10/20 08:42 DC 04/09/20 21:08 Olanzapine (Zyprexa Intramuscular) 15 mg BIDP PRN IM If refuses invega 04/10/20 08:45 04/12/20 09:05 DC 04/11/20 11:09 Olanzapine (Zyprexa Intramuscular) 15 mg STAT STAT IM 04/10/20 15:06 04/10/20 15:09 DC 04/10/20 15:23 Paliperidone (Invega) 3 mg BID PO 04/05/20 21:00 04/10/20 08:42 DC 04/07/20 22:05 Paliperidone (Invega) 6 mg BID PO 04/10/20 09:00 04/12/20 09:05 DC Propranolol HCl (Inderal) 10 mg Q6H PRN PO restlessness 04/07/20 09:15 Trazodone HCl (Desyrel) 50 mg QHSP PRN PO INSOMNIA 12/23/19 01:00 03/25/20 13:23 DC 02/29/20 22:53 Trazodone HCl (Desyrel) 50 mg QHSP PRN PO INSOMNIA 03/28/20 15:00 04/11/20 21:59 Allergies Coded Allergies: Sulfa (Sulfonamide Antibiotics) (Verified Allergy, Severe, hives, 04/25/19) amoxicillin (Verified Allergy, Intermediate, rash, 04/25/19) azithromycin (Verified Allergy, Intermediate, rash, 04/25/19) LYRIC REID DO Apr 13, 2020 08:13
[2020-04-13] MEDS: lisinopriL 5 MG TAB PO SCH (09:00)
[2020-04-13] MEDS: BENZTROPINE 1 MG TAB PO SCH ×2 (09:00→20:27)
[2020-04-13] MEDS: LEVOTHYROXINE 100MCG (0.1MG) VIAL IM SCH (12:00)
[2020-04-13] MEDS: HALOPERIDOL 5MG/ML VIAL (J1630 PER 1) IM PRN ×2 (15:19→20:28)
[2020-04-13] MEDS ORDERED: HALOPERIDOL DECANOATE 100 MG/ML VIAL (J1631) IM ONE (17:00)
[2020-04-13] MEDS ORDERED: LORazepam 2 MG/ML VIAL IM ONE ×2 (17:00→22:00)
[2020-04-13] MEDS ORDERED: diphenhydrAMINE 50MG/ML VIAL (J1200) IM ONE (17:00)
[2020-04-13] MEDS: traZODone 50 MG TAB PO PRN (20:28)
[2020-04-13] MEDS ORDERED: diphenhydrAMINE 50MG CAP PO ONE (22:00)
[2020-04-14] MEDS: lisinopriL 5 MG TAB PO SCH (09:00)
[2020-04-14] MEDS: LEVOTHYROXINE 100MCG (0.1MG) VIAL IM SCH (09:00)
[2020-04-14] MEDS: BENZTROPINE 1 MG TAB PO SCH ×2 (09:00→20:15)
--- NOTE | 2020-04-14 10:26 | MHIPNPDOC ---
[facility] Progress Note Progress Note DATE OF SERVICE: 04/14/20 Subjective HPI: Latrice presents today for her schizophrenia. The patient was attempted to be met with, however, she is quite distorted and unusual today. She generally does not engage in much conversation other than to sexually proposition male staff members and appears to follow this provider around asking to grab his badge and continually asking bizarre questions. Still, fairly intrusive although notably less aggressive. Objective Appearance: Fair hygiene. Affect: Flat with an intense stare. Mood: Labile. Speech: Tangential hyper-verbal to the point of being nearly incoherent. She appears to be tripping over her own words at times. . Judgement: Poor. Insight: Poor. Assessment F20.89 Other schizophrenia F25.9 Schizoaffective disorder, unspecified Plan Continue treatment of haldol 10 mg BID. Spoke with Dr. Fagan at [facility] of which he accepted the patient for a transfer on Friday. COVID-19 tests ordered at their request. Vital Signs Vital Signs Date Time Temp Pulse Resp B/P (MAP) Pulse Ox O2 Delivery O2 Flow Rate FiO2 04/13/20 09:58 Room Air Current Medications Current Medications Medications (Trade) Dose Ordered Sig/Ruth Route PRN Reason Start Time Stop Time Status Last Admin Dose Admin Acetaminophen (Tylenol Tab) 650 mg Q6HP PRN PO HEADACHE or DISCOMFORT 12/23/19 01:00 03/25/20 13:23 DC 02/03/20 14:04 Acetaminophen (Tylenol Tab) 650 mg Q6HP PRN PO HEADACHE OR DISCOMFORT 03/28/20 15:00 Al Hydrox/Mg Hydrox/Simethicone (Mylanta) 30 ml Q4HP PRN PO HEARTBURN/INDIGESTION 12/23/19 01:00 03/25/20 13:23 DC Al Hydrox/Mg Hydrox/Simethicone (Mylanta) 30 ml Q4HP PRN PO HEARTBURN/INDIGESTION 03/28/20 15:00 Benztropine Mesylate (Cogentin) 1 mg BID PO 04/07/20 09:00 04/07/20 22:05 Chlorpromazine HCl (Thorazine) 50 mg STAT STAT IM 02/01/20 21:01 02/01/20 21:03 DC 02/01/20 21:07 Chlorpromazine HCl (Thorazine) 50 mg STAT STAT IM 02/05/20 16:29 02/05/20 16:34 DC 02/05/20 16:38 Chlorpromazine HCl (Thorazine) 50 mg STAT STAT IM 02/06/20 14:47 02/06/20 14:49 DC 02/06/20 14:54 Chlorpromazine HCl (Thorazine) 50 mg STAT STAT IM 04/11/20 16:17 04/11/20 16:19 DC 04/11/20 16:30 Chlorpromazine HCl (Thorazine) 100 mg Q6HP PRN PO AGITATION 12/28/19 14:00 12/28/19 14:00 DC Chlorpromazine HCl (Thorazine) 100 mg STAT STAT IM 12/29/19 13:02 12/29/19 13:04 DC 12/29/19 13:32 Chlorpromazine HCl (Thorazine) 100 mg STAT STAT IM 01/31/20 21:38 01/31/20 21:40 DC 01/31/20 21:42 Chlorpromazine HCl (Thorazine) 150 mg Q6HP PRN PO AGITATION/anxiety 12/28/19 14:00 01/04/20 13:34 DC 01/04/20 09:25 Chlorpromazine HCl (Thorazine) 150 mg STAT STAT IM 01/23/20 19:56 01/23/20 19:58 DC 01/23/20 19:59 Chlorpromazine HCl (Thorazine) 150 mg STAT STAT IM 01/27/20 22:16 01/27/20 22:17 DC 01/27/20 22:54 Chlorpromazine HCl (Thorazine) 150 mg TID PO 01/04/20 16:00 03/25/20 13:13 DC 02/25/20 17:20 Chlorpromazine HCl (Thorazine) 150 mg TID PO 03/28/20 21:00 04/05/20 15:35 DC Clozapine (Clozaril) 12.5 mg QHS PO 01/06/20 21:00 01/12/20 09:29 DC 01/11/20 20:13 Clozapine (Clozaril) 25 mg BID PO 01/14/20 21:00 01/18/20 09:33 DC 01/16/20 21:17 Clozapine (Clozaril) 25 mg QHS PO 01/12/20 21:00 01/14/20 10:58 DC 01/13/20 22:43 Diphenhydramine HCl (Benadryl) 25 mg STAT STAT IM 04/01/20 21:59 04/01/20 22:01 DC 04/01/20 22:11 Diphenhydramine HCl (Benadryl) 25 mg STAT STAT IM 04/11/20 16:17 04/11/20 16:19 DC 04/11/20 16:30 Diphenhydramine HCl (Benadryl) 50 mg Q4HP PRN PO ANXIETY/AGITATION 12/23/19 15:00 03/25/20 13:23 DC Diphenhydramine HCl (Benadryl) 50 mg Q4HP PRN PO ANXIETY/AGITATION 03/28/20 15:00 04/11/20 21:59 Diphenhydramine HCl (Benadryl) 50 mg STAT STAT IM 12/22/19 21:28 12/22/19 21:30 DC 12/22/19 22:03 Diphenhydramine HCl (Benadryl) 50 mg STAT STAT IM 01/23/20 01:38 01/23/20 01:40 DC 01/23/20 01:49 Diphenhydramine HCl (Benadryl) 50 mg STAT STAT IM 01/23/20 19:56 01/23/20 19:58 DC 01/23/20 20:00 Diphenhydramine HCl (Benadryl) 50 mg STAT STAT IM 01/26/20 16:38 01/26/20 16:42 DC 01/26/20 16:59 Diphenhydramine HCl (Benadryl) 50 mg STAT STAT IM 01/27/20 20:17 01/27/20 20:20 DC 01/27/20 20:32 Diphenhydramine HCl (Benadryl) 50 mg STAT STAT IM 01/31/20 20:14 01/31/20 20:16 DC 01/31/20 20:21 Diphenhydramine HCl (Benadryl) 50 mg STAT STAT IM 02/02/20 13:33 02/02/20 13:37 DC 02/02/20 13:45 Diphenhydramine HCl (Benadryl) 50 mg STAT STAT IM 02/02/20 16:52 02/02/20 16:55 DC 02/02/20 17:09 Diphenhydramine HCl (Benadryl) 50 mg STAT STAT IM 02/15/20 14:29 02/15/20 14:30 DC 02/15/20 14:51 Diphenhydramine HCl (Benadryl) 50 mg STAT STAT IM 04/01/20 06:43 04/01/20 06:45 DC 04/01/20 06:56 Diphenhydramine HCl (Benadryl) 50 mg STAT STAT IM 04/12/20 18:14 04/12/20 18:18 DC 04/12/20 18:28 Diphenhydramine HCl (Benadryl) 50 mg STAT STAT IM 04/12/20 18:44 04/12/20 18:47 DC 04/12/20 19:00 Diphenhydramine HCl (Benadryl) 100 mg STAT STAT IM 04/10/20 13:23 04/10/20 13:25 DC 04/10/20 13:29 Docusate Sodium (Colace) 100 mg DAILY PO 01/08/20 09:00 02/07/20 08:59 DC 02/03/20 10:23 Fluphenazine HCl (Prolixin) 10 mg BID PO 12/23/19 09:00 12/28/19 09:42 DC Haloperidol (Haldol) 5 mg BID PO 01/18/20 09:00 03/25/20 13:22 DC 02/19/20 19:56 Haloperidol (Haldol) 5 mg BID PO 03/28/20 21:00 04/05/20 15:35 DC Haloperidol (Haldol) 5 mg STAT STAT IM 02/05/20 14:41 02/05/20 14:42 DC 02/05/20 14:50 Haloperidol (Haldol) 5 mg STAT STAT IM 04/01/20 06:43 04/01/20 06:45 DC 04/01/20 06:56 Haloperidol (Haldol) 5 mg STAT STAT IM 04/01/20 21:59 04/01/20 22:01 DC 04/01/20 22:11 Haloperidol (Haldol) 10 mg BID PO 04/12/20 09:00 Haloperidol (Haldol) 10 mg BIDP PRN IM IF REFUSES ORAL 04/12/20 09:00 04/13/20 20:28 Haloperidol (Haldol) 10 mg STAT STAT IM 01/23/20 01:38 01/23/20 01:40 DC 01/23/20 01:49 Haloperidol (Haldol) 10 mg STAT STAT IM 01/23/20 21:42 01/23/20 21:44 DC 01/23/20 21:55 Haloperidol (Haldol) 10 mg STAT STAT IM 01/24/20 23:45 01/24/20 23:47 DC 01/25/20 00:04 Haloperidol (Haldol) 10 mg STAT STAT IM 01/25/20 02:22 01/25/20 02:24 DC 01/25/20 02:27 Haloperidol (Haldol) 10 mg STAT STAT IM 01/26/20 16:50 01/26/20 16:52 DC 01/26/20 16:58 Haloperidol (Haldol) 10 mg STAT STAT IM 01/27/20 20:17 01/27/20 20:20 DC 01/27/20 20:32 Haloperidol (Haldol) 10 mg STAT STAT IM 01/31/20 20:14 01/31/20 20:16 DC 01/31/20 20:21 Haloperidol (Haldol) 10 mg STAT STAT IM 02/01/20 19:35 02/01/20 19:37 DC 02/01/20 19:41 Haloperidol (Haldol) 10 mg STAT STAT IM 02/02/20 13:33 02/02/20 13:37 DC 02/02/20 13:46 Haloperidol (Haldol) 10 mg STAT STAT IM 02/02/20 16:52 02/02/20 16:55 DC 02/02/20 17:09 Haloperidol (Haldol) 10 mg STAT STAT IM 04/12/20 18:14 04/12/20 18:18 DC 04/12/20 18:27 Haloperidol (Haldol) 10 mg STAT STAT IM 04/12/20 18:44 04/12/20 18:47 DC 04/12/20 19:00 Haloperidol (Haldol) 10 mg STAT STAT PO 01/26/20 16:38 01/26/20 16:52 DC Levothyroxine Sodium (Synthroid) 50 mcg DAILY IM 04/13/20 12:00 Levothyroxine Sodium (Synthroid) 100 mcg DAILY@06 PO 12/24/19 06:00 03/25/20 13:23 DC 01/17/20 06:17 Levothyroxine Sodium (Synthroid) 100 mcg DAILY@06 PO 03/29/20 06:00 04/13/20 11:26 DC Lisinopril (Prinivil) 5 mg DAILY PO 04/06/20 09:00 [place] Carbonate (Eskalith Oral Solution) 300 mg BID PO 12/23/19 09:00 12/28/19 09:41 DC 12/28/19 09:35 [place] Carbonate (Eskalith Oral Solution) 450 mg BID PO 12/28/19 21:00 12/31/19 10:58 DC 12/31/19 08:37 [place] Carbonate ([place] Carbonate) 450 mg BID PO 12/31/19 21:00 03/28/20 07:14 DC 02/03/20 10:22 [place] Carbonate ([place] Carbonate) 450 mg BID PO 03/28/20 21:00 04/05/20 15:35 DC Lorazepam (Ativan) 1 mg STAT STAT IM 01/24/20 23:45 01/24/20 23:47 DC 01/25/20 00:04 Lorazepam (Ativan) 1 mg STAT STAT IM 02/06/20 14:47 02/06/20 14:49 DC 02/06/20 14:54 Lorazepam (Ativan) 2 mg STAT STAT IM 01/23/20 01:38 01/23/20 01:40 DC 01/23/20 01:49 Lorazepam (Ativan) 2 mg STAT STAT IM 01/23/20 21:42 01/23/20 21:44 DC 01/23/20 21:56 Lorazepam (Ativan) 2 mg STAT STAT IM 01/26/20 16:38 01/26/20 16:42 DC 01/26/20 16:59 Lorazepam (Ativan) 2 mg STAT STAT IM 01/27/20 20:17 01/27/20 20:20 DC 01/27/20 20:31 Lorazepam (Ativan) 2 mg STAT STAT IM 01/31/20 20:14 01/31/20 20:16 DC 01/31/20 20:21 Lorazepam (Ativan) 2 mg STAT STAT IM 02/01/20 19:35 02/01/20 19:37 DC 02/01/20 19:41 Lorazepam (Ativan) 2 mg STAT STAT IM 02/02/20 13:33 02/02/20 13:37 DC 02/02/20 13:46 Lorazepam (Ativan) 2 mg STAT STAT IM 02/02/20 16:52 02/02/20 16:55 DC 02/02/20 17:09 Lorazepam (Ativan) 2 mg STAT STAT IM 02/05/20 16:29 02/05/20 16:34 DC 02/05/20 16:38 Lorazepam (Ativan) 2 mg STAT STAT IM 04/12/20 18:14 04/12/20 18:18 DC 04/12/20 18:28 Lorazepam (Ativan) 2 mg STAT STAT IM 04/12/20 18:44 04/12/20 18:47 DC 04/12/20 19:00 Magnesium Hydroxide (Milk Of Magnesia) 30 ml DAILYPRN PRN PO CONSTIPATION 12/23/19 01:00 03/25/20 13:23 DC Magnesium Hydroxide (Milk Of Magnesia) 30 ml DAILYPRN PRN PO CONSTIPATION 03/28/20 15:00 Miscellaneous (Unresolved Clarification Entry) SEE LABEL COMMENTS DAILY XX 01/21/20 09:00 01/21/20 08:04 DC Miscellaneous (Unresolved Clarification Entry) SEE LABEL COMMENTS DAILY XX 01/30/20 09:00 01/30/20 13:01 DC Miscellaneous (Unresolved Clarification Entry) SEE LABEL COMMENTS DAILY XX 02/02/20 09:00 02/04/20 09:30 DC Miscellaneous (Unresolved Clarification Entry) SEE LABEL COMMENTS DAILY XX 02/19/20 09:00 02/20/20 13:13 DC Miscellaneous (Unresolved Clarification Entry) SEE LABEL COMMENTS DAILY XX 02/16/20 09:00 02/16/20 09:59 DC Olanzapine (Zyprexa Intramuscular) 10 mg BIDP PRN IM If refuses invega 04/05/20 19:30 04/10/20 08:42 DC 04/09/20 21:08 Olanzapine (Zyprexa Intramuscular) 15 mg BIDP PRN IM If refuses invega 04/10/20 08:45 04/12/20 09:05 DC 04/11/20 11:09 Olanzapine (Zyprexa Intramuscular) 15 mg STAT STAT IM 04/10/20 15:06 04/10/20 15:09 DC 04/10/20 15:23 Paliperidone (Invega) 3 mg BID PO 04/05/20 21:00 04/10/20 08:42 DC 04/07/20 22:05 Paliperidone (Invega) 6 mg BID PO 04/10/20 09:00 04/12/20 09:05 DC Propranolol HCl (Inderal) 10 mg Q6H PRN PO restlessness 04/07/20 09:15 Trazodone HCl (Desyrel) 50 mg QHSP PRN PO INSOMNIA 12/23/19 01:00 03/25/20 13:23 DC 02/29/20 22:53 Trazodone HCl (Desyrel) 50 mg QHSP PRN PO INSOMNIA 03/28/20 15:00 04/13/20 20:28 Allergies Coded Allergies: Sulfa (Sulfonamide Antibiotics) (Verified Allergy, Severe, hives, 04/25/19) amoxicillin (Verified Allergy, Intermediate, rash, 04/25/19) azithromycin (Verified Allergy, Intermediate, rash, 04/25/19) LYRIC REID DO Apr 14, 2020 10:26
[2020-04-14] MEDS: HALOPERIDOL 5MG/ML VIAL (J1630 PER 1) IM PRN ×2 (11:15→20:00)
[2020-04-14] MEDS ORDERED: LORazepam 2 MG/ML VIAL IM ONE (19:45)
[2020-04-14] MEDS: traZODone 50 MG TAB PO PRN (20:20)
[2020-04-15] MEDS: lisinopriL 5 MG TAB PO SCH (09:00)
[2020-04-15] MEDS: BENZTROPINE 1 MG TAB PO SCH ×2 (09:00→16:16)
[2020-04-15] MEDS: LEVOTHYROXINE 100MCG (0.1MG) VIAL IM SCH (09:00)
[2020-04-15] MEDS: MAALOX 30 ML SUSP *UDC PO PRN (09:43)
[2020-04-15] MEDS: HALOPERIDOL 5MG/ML VIAL (J1630 PER 1) IM PRN ×2 (12:35→20:24)
[2020-04-15] MEDS: diphenhydrAMINE 50MG CAP PO PRN ×2 (16:15→20:23)
[2020-04-15] MEDS: traZODone 50 MG TAB PO PRN (20:23)
[2020-04-16] MEDS ORDERED: HALOPERIDOL 5MG/ML VIAL (J1630 PER 1) IM ONE ×2 (00:45→05:00)
[2020-04-16] MEDS ORDERED: LORazepam 2 MG/ML VIAL IM ONE ×2 (00:45→05:00)
[2020-04-16] MEDS ORDERED: diphenhydrAMINE 50MG/ML VIAL (J1200) IM ONE (00:45)
[2020-04-16] MEDS ORDERED: chlorproMAZINE INJ 50MG/2ML AMP (J3230) IM ONE (05:00)
[2020-04-16] MEDS: lisinopriL 5 MG TAB PO SCH (09:00)
[2020-04-16] MEDS: BENZTROPINE 1 MG TAB PO SCH ×2 (09:00→21:00)
[2020-04-16] MEDS: LEVOTHYROXINE 100MCG (0.1MG) VIAL IM SCH (09:00)
[2020-04-16] MEDS: MAALOX 30 ML SUSP *UDC PO PRN (09:45)
[2020-04-16] MEDS: HALOPERIDOL 5MG/ML VIAL (J1630 PER 1) IM PRN ×2 (09:56→21:48)
--- NOTE | 2020-04-16 16:23 | MHIPN ---
DATE: 04/15/2020 CHIEF COMPLAINT: She has remained intrusive, difficult to direct, with rapid speech, tangential thoughts, poor judgment and insight. There have been attempts made to directing her. MENTAL STATUS EXAMINATION: Intrusive, agitated, rapid speech, tangential thoughts. Poor judgment and insight. No fluctuation of consciousness. ASSESSMENT: Schizoaffective disorder. PLAN: Continue current care, observations, and treatment according to the protocol. MEREDITH
[2020-04-16 18:46] VITALS: BP 127/67
[2020-04-16] MEDS: diphenhydrAMINE 50MG CAP PO PRN (21:27)
[2020-04-16] MEDS: traZODone 50 MG TAB PO PRN (21:27)
[2020-04-17] MEDS: lisinopriL 5 MG TAB PO SCH (09:00)
[2020-04-17] MEDS: BENZTROPINE 1 MG TAB PO SCH ×2 (09:00→22:02)
[2020-04-17] MEDS: LEVOTHYROXINE 100MCG (0.1MG) VIAL IM SCH (09:00)
[2020-04-17] MEDS ORDERED: ChlorproMAZINE 100 MG TABLET PO STA (11:21)
[2020-04-17] MEDS ORDERED: chlorproMAZINE INJ 50MG/2ML AMP (J3230) IM STA (11:35)
[2020-04-17 21:45] LABS: APPEARANCE, URINE CLEAR (CLEAR); BACTERIA, URINE AUTO NEGATIVE (NEGATIVE); BILIRUBIN, URINE AUTO NEGATIVE (NEGATIVE); BLOOD, URINE BLOOD 2+ (NEGATIVE); COLOR, URINE STRAW (YELLOW); GLUCOSE, URINE (UA) AUTO NEGATIVE (NEGATIVE); KETONE, URINE AUTO NEGATIVE (NEGATIVE); LEUKOCYTE ESTERASE, URINE AUTO NEGATIVE (NEGATIVE); NITRITE, URINE AUTO NEGATIVE (NEGATIVE); PROTEIN, URINE AUTO NEGATIVE (NEGATIVE); RBC, URINE AUTO 2 /HPF (0-3); SPECIFIC GRAVITY URINE AUTO 1.005 (1.002-1.035); SQUAMOUS EPITHELIAL CELL UR AU 0 /HPF (0-6); UROBILINOGEN, URINE AUTO 0.2 mg/dL (0.0-2.0); WBC, URINE AUTO 0 /HPF (0-3)
[2020-04-17 21:47] LABS: BASO % 0.3 % (0.0-1.0); EOS # 0.1 10^3/uL (0.0-0.5); EOS % 0.9 % (0.0-3.0); HEMATOCRIT 40.6 % (36.0-47.0); HEMOGLOBIN 13.2 g/dl (12.0-15.5); LYMPH # 1.8 10^3/uL (1.5-5.0); LYMPH % 23.2 % (24.0-44.0); MEAN CORPUSCULAR HEMOGLOBIN 27.3 pg (27.0-33.0); MEAN CORPUSCULAR HGB CONC 32.5 g/dl (32.0-36.5); MEAN CORPUSCULAR VOLUME 84.1 fl (80.0-96.0); MONO # 0.3 10^3/uL (0.0-0.8); MONO % 4.1 % (0.0-5.0); NEUTROPHILS # 5.5 10^3/uL (1.5-8.5); NEUTROPHILS % 71.2 % (36.0-66.0); PLATELET COUNT, AUTOMATED 350 10^3/uL (150-450); RED BLOOD COUNT 4.83 10^6/uL (4.00-5.40); WHITE BLOOD COUNT 7.8 10^3/uL (4.0-10.0)
[2020-04-17] MEDS: diphenhydrAMINE 50MG CAP PO PRN (22:01)
[2020-04-17] MEDS: HALOPERIDOL 5MG/ML VIAL (J1630 PER 1) IM PRN (22:01)
[2020-04-17] MEDS: traZODone 50 MG TAB PO PRN (22:01)
[2020-04-18] MEDS: BENZTROPINE 1 MG TAB PO SCH ×2 (09:00→22:15)
[2020-04-18] MEDS: lisinopriL 5 MG TAB PO SCH (09:00)
[2020-04-18] MEDS: LEVOTHYROXINE 100MCG (0.1MG) VIAL IM SCH (09:00)
--- NOTE | 2020-04-18 09:51 | MHIPNPDOC ---
[facility] Progress Note Progress Note DATE OF SERVICE: 04/18/20 HISTORY: . VITAL SIGNS: See below. NEW TEST RESULTS: . CURRENT MEDICATIONS: See below. MENTAL STATUS EXAMINATION: Patient is a -year old female, who is . Speech: Is . Language skills are . Thought processes including: . Thought content: . Abstract reasoning, and computation: . Description of assoc iations: . Description of abnormal or psychotic thoughts: . Judgment: . Insight: [very limited, good, fair. poor]. Orientation: . Recent and remote memory: . Attention span and concentration: . Language: . Fund of knowledge: . Mood: . Affect: . DIAGNOSES: 1. . 2. . 3. . ASSESSMENT: MANAGEMENT PLAN: . TIME SPENT: minutes. Vital Signs Vital Signs Date Time Temp Pulse Resp B/P (MAP) Pulse Ox O2 Delivery O2 Flow Rate FiO2 04/16/20 18:46 98.6 80 20 127/67 (87) 04/13/20 09:58 Room Air Current Medications Current Medications Medications (Trade) Dose Ordered Sig/Ruth Route PRN Reason Start Time Stop Time Status Last Admin Dose Admin Acetaminophen (Tylenol Tab) 650 mg Q6HP PRN PO HEADACHE or DISCOMFORT 12/23/19 01:00 03/25/20 13:23 DC 02/03/20 14:04 Acetaminophen (Tylenol Tab) 650 mg Q6HP PRN PO HEADACHE OR DISCOMFORT 03/28/20 15:00 Al Hydrox/Mg Hydrox/Simethicone (Mylanta) 30 ml Q4HP PRN PO HEARTBURN/INDIGESTION 12/23/19 01:00 03/25/20 13:23 DC Al Hydrox/Mg Hydrox/Simethicone (Mylanta) 30 ml Q4HP PRN PO HEARTBURN/INDIGESTION 03/28/20 15:00 04/16/20 09:45 Benztropine Mesylate (Cogentin) 1 mg BID PO 04/07/20 09:00 04/17/20 22:02 Chlorpromazine HCl (Thorazine) 50 mg STAT STAT IM 02/01/20 21:01 02/01/20 21:03 DC 02/01/20 21:07 Chlorpromazine HCl (Thorazine) 50 mg STAT STAT IM 02/05/20 16:29 02/05/20 16:34 DC 02/05/20 16:38 Chlorpromazine HCl (Thorazine) 50 mg STAT STAT IM 02/06/20 14:47 02/06/20 14:49 DC 02/06/20 14:54 Chlorpromazine HCl (Thorazine) 50 mg STAT STAT IM 04/11/20 16:17 04/11/20 16:19 DC 04/11/20 16:30 Chlorpromazine HCl (Thorazine) 100 mg Q6HP PRN PO AGITATION 12/28/19 14:00 12/28/19 14:00 DC Chlorpromazine HCl (Thorazine) 100 mg STAT STAT IM 12/29/19 13:02 12/29/19 13:04 DC 12/29/19 13:32 Chlorpromazine HCl (Thorazine) 100 mg STAT STAT IM 01/31/20 21:38 01/31/20 21:40 DC 01/31/20 21:42 Chlorpromazine HCl (Thorazine) 150 mg Q6HP PRN PO AGITATION/anxiety 12/28/19 14:00 01/04/20 13:34 DC 01/04/20 09:25 Chlorpromazine HCl (Thorazine) 150 mg STAT STAT IM 01/23/20 19:56 01/23/20 19:58 DC 01/23/20 19:59 Chlorpromazine HCl (Thorazine) 150 mg STAT STAT IM 01/27/20 22:16 01/27/20 22:17 DC 01/27/20 22:54 Chlorpromazine HCl (Thorazine) 150 mg STAT STAT IM 04/17/20 11:35 04/17/20 11:37 DC 04/17/20 11:49 Chlorpromazine HCl (Thorazine) 150 mg STAT STAT PO 04/17/20 11:21 04/17/20 11:37 DC Chlorpromazine HCl (Thorazine) 150 mg TID PO 01/04/20 16:00 03/25/20 13:13 DC 02/25/20 17:20 Chlorpromazine HCl (Thorazine) 150 mg TID PO 03/28/20 21:00 04/05/20 15:35 DC Clozapine (Clozaril) 12.5 mg QHS PO 01/06/20 21:00 01/12/20 09:29 DC 01/11/20 20:13 Clozapine (Clozaril) 25 mg BID PO 01/14/20 21:00 01/18/20 09:33 DC 01/16/20 21:17 Clozapine (Clozaril) 25 mg QHS PO 01/12/20 21:00 01/14/20 10:58 DC 01/13/20 22:43 Diphenhydramine HCl (Benadryl) 25 mg STAT STAT IM 04/01/20 21:59 04/01/20 22:01 DC 04/01/20 22:11 Diphenhydramine HCl (Benadryl) 25 mg STAT STAT IM 04/11/20 16:17 04/11/20 16:19 DC 04/11/20 16:30 Diphenhydramine HCl (Benadryl) 50 mg Q4HP PRN PO ANXIETY/AGITATION 12/23/19 15:00 03/25/20 13:23 DC Diphenhydramine HCl (Benadryl) 50 mg Q4HP PRN PO ANXIETY/AGITATION 03/28/20 15:00 04/17/20 22:01 Diphenhydramine HCl (Benadryl) 50 mg STAT STAT IM 12/22/19 21:28 12/22/19 21:30 DC 12/22/19 22:03 Diphenhydramine HCl (Benadryl) 50 mg STAT STAT IM 01/23/20 01:38 01/23/20 01:40 DC 01/23/20 01:49 Diphenhydramine HCl (Benadryl) 50 mg STAT STAT IM 01/23/20 19:56 01/23/20 19:58 DC 01/23/20 20:00 Diphenhydramine HCl (Benadryl) 50 mg STAT STAT IM 01/26/20 16:38 01/26/20 16:42 DC 01/26/20 16:59 Diphenhydramine HCl (Benadryl) 50 mg STAT STAT IM 01/27/20 20:17 01/27/20 20:20 DC 01/27/20 20:32 Diphenhydramine HCl (Benadryl) 50 mg STAT STAT IM 01/31/20 20:14 01/31/20 20:16 DC 01/31/20 20:21 Diphenhydramine HCl (Benadryl) 50 mg STAT STAT IM 02/02/20 13:33 02/02/20 13:37 DC 02/02/20 13:45 Diphenhydramine HCl (Benadryl) 50 mg STAT STAT IM 02/02/20 16:52 02/02/20 16:55 DC 02/02/20 17:09 Diphenhydramine HCl (Benadryl) 50 mg STAT STAT IM 02/15/20 14:29 02/15/20 14:30 DC 02/15/20 14:51 Diphenhydramine HCl (Benadryl) 50 mg STAT STAT IM 04/01/20 06:43 04/01/20 06:45 DC 04/01/20 06:56 Diphenhydramine HCl (Benadryl) 50 mg STAT STAT IM 04/12/20 18:14 04/12/20 18:18 DC 04/12/20 18:28 Diphenhydramine HCl (Benadryl) 50 mg STAT STAT IM 04/12/20 18:44 04/12/20 18:47 DC 04/12/20 19:00 Diphenhydramine HCl (Benadryl) 100 mg STAT STAT IM 04/10/20 13:23 04/10/20 13:25 DC 04/10/20 13:29 Docusate Sodium (Colace) 100 mg DAILY PO 01/08/20 09:00 02/07/20 08:59 DC 02/03/20 10:23 Fluphenazine HCl (Prolixin) 10 mg BID PO 12/23/19 09:00 12/28/19 09:42 DC Haloperidol (Haldol) 5 mg BID PO 01/18/20 09:00 03/25/20 13:22 DC 02/19/20 19:56 Haloperidol (Haldol) 5 mg BID PO 03/28/20 21:00 04/05/20 15:35 DC Haloperidol (Haldol) 5 mg STAT STAT IM 02/05/20 14:41 02/05/20 14:42 DC 02/05/20 14:50 Haloperidol (Haldol) 5 mg STAT STAT IM 04/01/20 06:43 04/01/20 06:45 DC 04/01/20 06:56 Haloperidol (Haldol) 5 mg STAT STAT IM 04/01/20 21:59 8/22/20 22:01 DC 04/01/20 22:11 Haloperidol (Haldol) 10 mg BID PO 04/12/20 09:00 04/17/20 10:30 Haloperidol (Haldol) 10 mg BIDP PRN IM IF REFUSES ORAL 04/12/20 09:00 04/17/20 22:01 Haloperidol (Haldol) 10 mg STAT STAT IM 01/23/20 01:38 01/23/20 01:40 DC 01/23/20 01:49 Haloperidol (Haldol) 10 mg STAT STAT IM 01/23/20 21:42 01/23/20 21:44 DC 01/23/20 21:55 Haloperidol (Haldol) 10 mg STAT STAT IM 01/24/20 23:45 01/24/20 23:47 DC 01/25/20 00:04 Haloperidol (Haldol) 10 mg STAT STAT IM 01/25/20 02:22 01/25/20 02:24 DC 01/25/20 02:27 Haloperidol (Haldol) 10 mg STAT STAT IM 01/26/20 16:50 01/26/20 16:52 DC 01/26/20 16:58 Haloperidol (Haldol) 10 mg STAT STAT IM 01/27/20 20:17 01/27/20 20:20 DC 01/27/20 20:32 Haloperidol (Haldol) 10 mg STAT STAT IM 01/31/20 20:14 01/31/20 20:16 DC 01/31/20 20:21 Haloperidol (Haldol) 10 mg STAT STAT IM 02/01/20 19:35 02/01/20 19:37 DC 02/01/20 19:41 Haloperidol (Haldol) 10 mg STAT STAT IM 02/02/20 13:33 02/02/20 13:37 DC 02/02/20 13:46 Haloperidol (Haldol) 10 mg STAT STAT IM 02/02/20 16:52 02/02/20 16:55 DC 02/02/20 17:09 Haloperidol (Haldol) 10 mg STAT STAT IM 04/12/20 18:14 04/12/20 18:18 DC 04/12/20 18:27 Haloperidol (Haldol) 10 mg STAT STAT IM 04/12/20 18:44 04/12/20 18:47 DC 04/12/20 19:00 Haloperidol (Haldol) 10 mg STAT STAT PO 01/26/20 16:38 01/26/20 16:52 DC Levothyroxine Sodium (Synthroid) 50 mcg DAILY IM 04/13/20 12:00 Levothyroxine Sodium (Synthroid) 100 mcg DAILY@06 PO 12/24/19 06:00 03/25/20 13:23 DC 01/17/20 06:17 Levothyroxine Sodium (Synthroid) 100 mcg DAILY@06 PO 03/29/20 06:00 04/13/20 11:26 DC Lisinopril (Prinivil) 5 mg DAILY PO 04/06/20 09:00 Blenheim Carbonate (Eskalith Oral Solution) 300 mg BID PO 12/23/19 09:00 12/28/19 09:41 DC 12/28/19 09:35 Blenheim Carbonate (Eskalith Oral Solution) 450 mg BID PO 12/28/19 21:00 12/31/19 10:58 DC 12/31/19 08:37 Blenheim Carbonate (Blenheim Carbonate) 450 mg BID PO 12/31/19 21:00 03/28/20 07:14 DC 02/03/20 10:22 Blenheim Carbonate (Blenheim Carbonate) 450 mg BID PO 03/28/20 21:00 04/05/20 15:35 DC Lorazepam (Ativan) 1 mg STAT STAT IM 01/24/20 23:45 01/24/20 23:47 DC 01/25/20 00:04 Lorazepam (Ativan) 1 mg STAT STAT IM 02/06/20 14:47 02/06/20 14:49 DC 02/06/20 14:54 Lorazepam (Ativan) 2 mg STAT STAT IM 01/23/20 01:38 01/23/20 01:40 DC 01/23/20 01:49 Lorazepam (Ativan) 2 mg STAT STAT IM 01/23/20 21:42 01/23/20 21:44 DC 01/23/20 21:56 Lorazepam (Ativan) 2 mg STAT STAT IM 01/26/20 16:38 01/26/20 16:42 DC 01/26/20 16:59 Lorazepam (Ativan) 2 mg STAT STAT IM 01/27/20 20:17 01/27/20 20:20 DC 01/27/20 20:31 Lorazepam (Ativan) 2 mg STAT STAT IM 01/31/20 20:14 01/31/20 20:16 DC 01/31/20 20:21 Lorazepam (Ativan) 2 mg STAT STAT IM 02/01/20 19:35 02/01/20 19:37 DC 02/01/20 19:41 Lorazepam (Ativan) 2 mg STAT STAT IM 02/02/20 13:33 02/02/20 13:37 DC 02/02/20 13:46 Lorazepam (Ativan) 2 mg STAT STAT IM 02/02/20 16:52 02/02/20 16:55 DC 02/02/20 17:09 Lorazepam (Ativan) 2 mg STAT STAT IM 02/05/20 16:29 02/05/20 16:34 DC 02/05/20 16:38 Lorazepam (Ativan) 2 mg STAT STAT IM 04/12/20 18:14 04/12/20 18:18 DC 04/12/20 18:28 Lorazepam (Ativan) 2 mg STAT STAT IM 04/12/20 18:44 04/12/20 18:47 DC 04/12/20 19:00 Magnesium Hydroxide (Milk Of Magnesia) 30 ml DAILYPRN PRN PO CONSTIPATION 12/23/19 01:00 03/25/20 13:23 DC Magnesium Hydroxide (Milk Of Magnesia) 30 ml DAILYPRN PRN PO CONSTIPATION 03/28/20 15:00 Miscellaneous (Unresolved Clarification Entry) SEE LABEL COMMENTS DAILY XX 01/21/20 09:00 01/21/20 08:04 DC Miscellaneous (Unresolved Clarification Entry) SEE LABEL COMMENTS DAILY XX 01/30/20 09:00 01/30/20 13:01 DC Miscellaneous (Unresolved Clarification Entry) SEE LABEL COMMENTS DAILY XX 02/02/20 09:00 02/04/20 09:30 DC Miscellaneous (Unresolved Clarification Entry) SEE LABEL COMMENTS DAILY XX 02/19/20 09:00 02/20/20 13:13 DC Miscellaneous (Unresolved Clarification Entry) SEE LABEL COMMENTS DAILY XX 02/16/20 09:00 02/16/20 09:59 DC Olanzapine (Zyprexa Intramuscular) 10 mg BIDP PRN IM If refuses invega 04/05/20 19:30 04/10/20 08:42 DC 04/09/20 21:08 Olanzapine (Zyprexa Intramuscular) 15 mg BIDP PRN IM If refuses invega 04/10/20 08:45 04/12/20 09:05 DC 04/11/20 11:09 Olanzapine (Zyprexa Intramuscular) 15 mg STAT STAT IM 04/10/20 15:06 04/10/20 15:09 DC 04/10/20 15:23 Paliperidone (Invega) 3 mg BID PO 04/05/20 21:00 04/10/20 08:42 DC 04/07/20 22:05 Paliperidone (Invega) 6 mg BID PO 04/10/20 09:00 04/12/20 09:05 DC Propranolol HCl (Inderal) 10 mg Q6H PRN PO restlessness 04/07/20 09:15 Trazodone HCl (Desyrel) 50 mg QHSP PRN PO INSOMNIA 12/23/19 01:00 03/25/20 13:23 DC 02/29/20 22:53 Trazodone HCl (Desyrel) 50 mg QHSP PRN PO INSOMNIA 03/28/20 15:00 04/17/20 22:01 Allergies Coded Allergies: Sulfa (Sulfonamide Antibiotics) (Verified Allergy, Severe, hives, 04/25/19) amoxicillin (Verified Allergy, Intermediate, rash, 04/25/19) azithromycin (Verified Allergy, Intermediate, rash, 04/25/19) LYRIC REID DO Apr 18, 2020 09:51
--- NOTE | 2020-04-18 09:55 | MHDSPDOC ---
[facility] Discharge Summary Discharge Summary DATE OF ADMISSION: December 23, 2019 at 00:52 DATE OF DISCHARGE: 04/19/20 DISCHARGE DIAGNOSES: Schizoaffective disorder, bipolar type CONSULTANTS INVOLVED: hospitalist for thyroid and hypertension management REASON FOR ADMISSION & TREATMENT AND PROGRESS ON THE UNIT : The patient was admitted to the inpatient mental health unit after she had recently left long-term care at [facility], she had used various drugs and then become psychotic. Usually she would present and resolved quite quickly. However, she was additionally open taking medications such as liquid lithium, however, she quickly continued to decompensate becoming manic, psychotic, and unmanageable. Eventually we were no longer able to stock liquid lithium in the patient altogether began refusing medications. Prior to this she was tried on Clozaril which appeared to make her more agitated even at low doses such as 25 mg. The patient initially was triaged for treatment of her objection, however she did except a Haldol long-acting 200 mg injection from a covering provider, she was observed or she did make some mild progress. However, it became clear that her progress slipped away and she became more distorted and unable to reason, having multiple episodes of aggression. She was eventually taken to court for treatment of her objection tried on paliperidone/olanzapine if she refused, however she notably had difficulty with urinary incontinence and was subsequently changed Haldol 10 mg BID either IM versus PO. She did make some progress in terms of being somewhat less agitated, but still remains quite psychotic unable to reason, giggling insensibly. DISCHARGE ASSESSMENT[unchanged] Legal status considerations: Patients on a six-month retention and a treatment of over her objection MENTAL STATUS EXAMINATION ON DISCHARGE: General: poor Speech: rapid Thought processes: tangential Thought content: psychotic delusions Abstract reasoning, and computation: impaired Description of associations: imparied Description of abnormal or psychotic thoughts:Unclear, appears to have psychotic processes going on. Judgment: poor Insight: poor Orientation: Alert and orientated 3 Recent and remote memory: Intact Attention span and concentration: impaired secondary to thought process Fund of knowledge: unable to determine Mood: "incoherent" Affect: flat, little reactivity PLAN/FOLLOWUP ARRANGEMENTS: discussed with AOT coordinator, will go to long-term care, will likely need reapplication of AOT and supportive living environment. The amount of time spent in the coordination of care for this patient was ap proximately 30 minutes. Vital Signs/I&Os Vital Signs Date Time Temp Pulse Resp B/P (MAP) Pulse Ox O2 Delivery O2 Flow Rate FiO2 04/16/20 18:46 98.6 80 20 127/67 (87) 04/13/20 09:58 Room Air Medications Scheduled Benztropine Mesylate (Benztropine Mesylate) 1 Mg Tablet, 1 MG PO BID for eps for 30 Days, #30 Haloperidol (Haloperidol) 10 Mg Tablet, 10 MG PO BID for thoughts for 30 Days, #30 Levothyroxine Sodium (Synthroid) 100 Mcg Tablet, 100 MCG PO DAILY, (Reported) Lisinopril (Lisinopril) 5 Mg Tablet, 5 MG PO DAILY for htn for 30 Days, #30 Scheduled PRN Propranolol HCl (Propranolol HCl) 10 Mg Tablet, 10 MG PO Q6H PRN for restlessness for 30 Days, #30 [haloperidoL] 5 MG/ML INJ, 10 MG IM BIDP PRN for IF REFUSES ORAL for 30 Days, #30 Allergies Coded Allergies: Sulfa (Sulfonamide Antibiotics) (Verified Allergy, Severe, hives, 04/25/19) amoxicillin (Verified Allergy, Intermediate, rash, 04/25/19) azithromycin (Verified Allergy, Intermediate, rash, 04/25/19) LYRIC REID DO Apr 18, 2020 09:55
[2020-04-18] MEDS ORDERED: HALO10TA20 PO (10:45)
[2020-04-18] MEDS ORDERED: haloperidoL IM (10:45)
[2020-04-18] MEDS ORDERED: LISI-542 PO (10:45)
[2020-04-18] MEDS ORDERED: PROP10TA56 PO (10:45)
[2020-04-18] MEDS ORDERED: BENZ-52 PO (10:45)
--- NOTE | 2020-04-18 12:12 | MHIPN ---
DATE: 04/16/2020 MENTAL STATUS EXAMINATION: She has been intrusive, agitated, displays rapid speech, excessive energy. Lability of affect as well as mood. Poor judgment. Improved insight. ASSESSMENT: Schizoaffective disorder bipolar type. PLAN: Continue current care, observations including one-on-one observations, and treatment according to the court ordered protocol. MEREDITH
[2020-04-19] MEDS ORDERED: ChlorproMAZINE 100 MG TABLET PO ONE (09:00)
[2020-04-19] MEDS: LEVOTHYROXINE 100MCG (0.1MG) VIAL IM SCH (10:06)
[2020-04-19] MEDS: lisinopriL 5 MG TAB PO SCH (10:06)
[2020-04-19] MEDS: BENZTROPINE 1 MG TAB PO SCH (10:10)
[2020-04-26 14:16] LABS: ALBUMIN 3.8 GM/DL (3.2-5.2); ALT/SGPT 18 U/L (12-78); BILIRUBIN,TOTAL 0.3 MG/DL (0.2-1.0); BLOOD UREA NITROGEN 12 MG/DL (7-18); CALCIUM LEVEL 9.1 MG/DL (8.5-10.1); CARBON DIOXIDE LEVEL 27 MEQ/L (21-32); CHLORIDE LEVEL 106 MEQ/L (98-107); CREATININE FOR GFR 0.79 MG/DL (0.55-1.30); FERRITIN 62 NG/ML (8-252); FOLATE 11.1 NG/ML (>5.4); FREE T4 1.23 NG/DL (0.76-1.46); GLOMERULAR FILTRATION RATE > 60.0 (>60); GLUCOSE, FASTING 96 MG/DL (70-100); IRON (FE) 41 UG/DL (50-170); MAGNESIUM LEVEL 2.1 MG/DL (1.8-2.4); PERCENT SATURATION 14.4 % (13.2-45.0); PHOSPHORUS LEVEL 4.3 MG/DL (2.5-4.9); POTASSIUM SERUM 4.2 MEQ/L (3.5-5.1); SODIUM LEVEL 137 MEQ/L (136-145); TOTAL 25(OH) VITAMIN D 23.3 NG/ML (30.0-100.0); TOTAL IRON BINDING CAPACITY 284 UG/DL (250-450); TOTAL PROTEIN 6.9 GM/DL (6.4-8.2); VITAMIN B12 LEVEL 439 PG/ML (247-911)
--- NOTE | 2020-05-19 14:24 | MHIPN ---
DATE: 03/11/2020 The patient refused to see me today. MTDD
--- NOTE | 2020-05-19 14:25 | MHIPN ---
DATE: 03/12/2020 The patient refused to see me today. MTDD
--- NOTE | 2020-05-19 14:27 | MHIPN ---
DATE: 03/13/2020 I am assigned to her care for today, 03/13/2020. She offers no complaints, other than she has not been given Klonopin. An attempt was made to have a conversation with her, but she is intrusive, and had earlier been agitated, and over the last 12 hours or so at various points, I understand she has been quite agitated and has required anti-agitation medications as well as restraints. MENTAL STATUS EXAMINATION: Irritable, grandiose, mild agitation, deluded, with somewhat labile affect, judgment and insight remain compromised. ASSESSMENT: Schizoaffective disorder. PLAN: Continue current observations including one-on-one observation, and proceed with application for Treatment Over Objection. MEREDITH
--- NOTE | 2020-05-19 14:28 | MHIPN ---
DATE: 03/14/2020 I am assigned to her care for today. She has continued being agitated, deluded, delusions of grandeur, has been intrusive, has required restraints, within the last 24 hours or so as well. MENTAL STATUS EXAMINATION: Neat, easily irritated, intrusive, grandiose, and the exam was cut short as she became agitated, was unable to continue, then banged the door. Judgment and insight remain quite compromised. ASSESSMENT: Schizoaffective disorder. Remains with fluctuant moods, psychosis. PLAN: We will look at trying to persuade her to take Haldol decanoate, it will be offered to her daily, at 100 mg intramuscular, and if she does take it, may need to increase the decanoate dose, will start off with 100 mg intramuscular. Meanwhile, will continue with current observations including one-on-one observation. Await sending in for the application for Treatment Over Objection, some of the evaluations have been done. Further recommendations will be made depending on the clinical picture. MTDD
--- NOTE | 2020-05-19 14:30 | MHIPN ---
DATE: 03/27/2020 HISTORY: Ms. Latrice De Paz is a 29-year-old female with history of schizoaffective disorder and medication noncompliance. INTERVAL HISTORY: Ms. De Paz has been refusing medications and a Treatment Over Objection (TOO) was recently placed so that she can receive treatment over her objection. She continues to request medications when she needs them and she frequently asks for Benadryl, not for medications that would really help her with her psychiatric illness. She has an induration on her deltoid muscle in one of her arms due to frequent intramuscular injections. The patient was evaluated by Dr. Chamorro, the hospitalist, and she felt that she did not have an abscess or cellulitis in the area. SUBJECTIVE: When I went to wake her up, she was asleep and not willing to speak with me this afternoon. She frequently goes to bed late and frequently receives medications at night which makes her sleep late during the day. OBJECTIVE: Ms. Latrice De Paz was sleeping at this time, I could not evaluate her, but over the weekend I was able to observe her while I was at the inpatient mental health unit and she continued to be psychotic and requested Haldol 10 mg intramuscular (IM), Benadryl 50 mg IM on the night of 03/25/2020, and previously she had received another dose of Haldol 10 mg, Ativan 2 mg IM, and Benadryl 50 mg. DIAGNOSIS: Schizoaffective disorder. ASSESSMENT AND PLAN: The patient continues to be psychotic, this board writer was able to observe her behavior during the weekend (03/25/2020 and 03/26/2020) and according to staff, she has continued to get irritable, especially during the night when she becomes demanding, and during those hours she frequently needs to be restrained either chemically or physically, or both. Ms. De Paz is pending Treatment Over Objection so that she can receive the right medications. Will continue to monitor for safety. [facility]
--- NOTE | 2020-05-19 14:30 | MHIPN ---
DATE: 04/01/2020 SUBJECTIVE: She is seen for follow-up. She is maintained on a one-on-one observation. She had been asleep for part of the early part of the day, was out and about in the unit. She is intrusive, but only somewhat cooperative. Tangential in thought. Judgment and insight remain poor. PLAN: Continue current care and observation including one-on-one observations. The patient's case for being treated over objection was presented to the court yesterday, and he will await the results. Meanwhile we will continue current care. MEREDITH
--- NOTE | 2020-05-19 14:31 | MHIPN ---
DATE: 04/02/2020 She is seen for followup. She remains on one-on-one observation, has been agitated, intrusive, has required anti-agitation medications yesterday. Today, remains intrusive, requires frequent direction, has rapid speech, poor judgment and insight. PLAN: Continue current care, and await details related to treatment approved under the Treatment Over Objection, which was presented to court a couple of days ago. Further recommendations will be made by the assigned clinician tomorrow. MEREDITH
--- NOTE | 2020-05-19 16:52 | TOB ---
PSYCHIATRIC TREATMENT OVER OBJECTION DATE: 03/23/2020 I am dictating it because the computer system has been down. This is an assessment made on Ms. De Paz, because I have been assigned to her care several times during her current hospitalization. SECTION 1, CLINICAL ASSESSMENT: The patient follows with AOT care, has it coordinated, and the coordinator prior to the patient coming to the hospital indicated that the patient had been decompensating soon after leaving a long- term psychiatric center at [facility] in [place], [place]. CLINICAL SUMMARY: Ms. De Paz is a 29-year-old female with a long history of schizoaffective disorder and has had multiple hospitalizations at [facility] to the inpatient mental health unit. She was admitted this time on 12/23/2019 basically because of psychosis and agitation. She has just left long-term care at [facility], was out for about 4 days or so, and started using cocaine and other stimulants. She became quite delusional, stating that she was somebody else, and refused to accept oral medications. She also reported to staff that she has seizures. She had decompensated to the point where she was unable to care for herself and was admitted to the hospital. During her stay here, she has been agitated, irritable, has had elated mood. At times she has been aggressive, frequently attempting to leave the unit, running toward the door, pulling the fire alarm, and has required frequent redirection and has been restrained several times, having received medications to calm her down. During the last week, she attempted to escape the hospital several times. DIAGNOSIS: Schizoaffective disorder. SECTION 2, PROPOSED TREATMENT: 1. Course of treatment recommended by the treating physician. The treating physician has suggested that she be prescribed oral antipsychotics. This is as follows: A) Invega 3 mg twice a day, and the dose be titrated according to response, up to 6 or 9 mg twice a day as tolerated. If the oral medicine is well tolerated, it has been proposed that she be given long-acting intramuscular Invega Sustenna 234 mg loading dose to be followed 3 days later by Invega Sustenna 156 maintenance dose intramuscular. Subsequent to that, will be on the Invega Sustenna monthly injection dose up to 234 mg intramuscular. If the patient refuses oral medications, what I would propose is as follows. B) Zyprexa 10 mg intramuscular at various doses up to a total of 30 mg a day. If that is tolerated, she will be maintained on Invega Sustenna monthly injection, as previously stated, up to 234 or 234 mg intramuscular as well as Cogentin 0.5 mg to 1 mg by mouth for a total of 4 mg a day if parkinsonian symptoms secondary to the Invega or Zyprexa develop. 2. Reasonable alternatives, if any, are Haldol 5 mg to 10 mg intramuscular and Ativan 2 mg intramuscular in the event that the patient becomes a danger to herself or others during her treatment. If Invega (paliperidone) is unable to produce reasonable results in a reasonable period of time or causes excessive side effects, there are other alternative proposals. This is as follows. A) Haldol 5 mg up to 20 mg daily in divided doses by mouth, and if she has a positive response to that, she could receive Haldol long-acting injectable once a month intramuscular 50-200 mg, depending on which dose will be tolerated, or if she would tolerate oral Haldol. If she tolerates oral Haldol, then she will be a candidate for intramuscular Haldol Decanoate. If she refuses 5 mg up to 20 of intramuscular immediate release Haldol, then the alternative will be risperidone 1 mg up to a total of 4 mg daily orally. If she refuses risperidone, a lower dose of Zyprexa (whichever is better tolerated) intramuscular could be used, either 5-10 mg or 5-30 mg, respectively. B) Abilify 5 mg to 30 mg oral dose, and if tolerated well, then could be given Abilify Maintena 200 mg to 400 mg intramuscular once a month. It should be noted, as she has had multiple previous admissions in the past, and some have not been successful and condition has decompensated further, it will be necessary to augment one medicine with another as long as it is safe to produce therapeutic effect with the lowest chances of side effects. Should all other treatment options fail or be poorly tolerated, involuntary electroconvulsive therapy could also be considered with a frequency of daily treatment for the first week and then spaced out as appropriate, either augmented with the treatment options above or on its own depending on the practitioner. 3. Has the patient been tried on proposed treatment? The patient has been tried on nearly all well-known treatment with some positive results in the past, particularly with Haldol and paliperidone; however, poor adherence to recommendations and the intensity of her illness make remission and prognosis generally guarded. This requires more complex regimens in order to produce reasonable results. 4. Anticipated benefits to proposed treatment. Anticipated benefits including producing long-lasting improvement and that will increase the chances of her adhering to the regimen and diminishing days of agitation and the symptoms of psychosis, including delusions. This will enhance her functioning, including around others. 5. Reasonable foreseeable adverse side effects. These include parkinsonian symptoms, weight gain, sedation, and side effects of neuroleptic. In rare instances, neuroleptic malignant syndrome and tardive dyskinesia may develop. However, given the intensity of her illness, it is believed by the treatment team that the benefits of the medicines at this point outweigh the risks. 6. Prognosis without treatment. This is extremely poor and will likely result in perpetration of psychosis and agitation for an extended period of time. SECTION 3, PATIENT'S CAPACITY: 1. Explained to the patient: A) Condition ____. Yes. B) Proposed treatment. Yes. C) Anticipated benefits of treatment. Yes. D) Risks of adverse side effects of treatment. Yes. E: Availability of other treatments and comparable benefits and risks. Yes. F) The risk of no treatment. Yes. Although attempts were made to explain the reason for treatment, the patient was quite irritable and agitated and was unable due to her illness to engage in a meaningful conversation regarding them. She also has very poor insight and at times insists that she does not have any difficulties. 2. State the nature of the patient's objections to treatment. Please refer to my comments above. She does not think that she has an illness except for possible seizures and remains deluded, so a conversation, given her irritability and agitation, becomes very difficult. 3. Patient's capacity. This is quite heavily impaired by her condition, and she does not have the capacity to understand her illness, the proposed treatment in any meaningful manner, at this point. SECTION 4, LIKELIHOOD FOR DANGEROUS BEHAVIOR. 1. The patient is believed to be dangerous to others at the hospital unless treated. Yes, as her illness has been intense, she has been frequently agitated and has required frequent direction, including restraints at times to manage the impacts of the aggression and agitation. She has been physically violent toward staff members on more than one occasion. 2. The patient is believed to be likely dangerous to herself if not treated. Yes, given the above, and her agitation, the psychosis, the fluctuating moods, all put her in a position where she may hurt herself, including inadvertently. SECTION 5, ANY OTHER INFORMATION: The patient has from time to time agreed to take intramuscular injections, including chlorpromazine, Zyprexa, and Haldol, but frequent injections also run the risk of side effects, and anti-agitation medications are for short-term use, when rather no other methods have been successful, are not effective in treating the patient in intermediate accountant. At this point, she requires treatment, including over her objection. MEREDITH
--- NOTE | 2020-05-20 08:30 | MHIPN ---
DATE: 03/09/2020 CHIEF COMPLAINT: She does not offer any or such. SUBJECTIVE: She is seen for followup and has been agitated, verbally aggressive, and required frequent directions. She is on one-on-one observation. She has received oral anti-agitation medications earlier today. She is irritable, displays mild agitation during the interview, needs frequent direction, answers questions with non-sequiturs. Has delusions, those are grandeur. No overt indication of any thoughts of actively harming herself or anyone else. Judgment and insight remain quite poor. Displays distinct elements of psychosis, and irritability, and this impacts her functioning quite considerably. PLAN: Continue current observations. She needs one-on-one observation and anti- agitation medications as needed. She has declined taking regularly scheduled medicines. We will apply for treatment over objection. It should be noted, the computer system is still down. There is no access to her past records. MEREDITH
--- NOTE | 2020-05-20 09:27 | TOB ---
DATE: 03/13/2020 This is an assessment for Treatment Over Objection. It should be noted, the computer system is down, and I do not have access to previous records for now. This is an assessment made regarding Ms. De Paz, as the treating physician was asking for treating the patient over her objection. It should also be noted, that I have, during her current admission, been assigned to her care at various times and days, and this was all during her current hospitalization. I last saw her 03/10/2020, and I am due to see her again later today. SECTION I - CLINICAL ASSESSMENT: I understand that the patient follows with AOT care, has it coordinated, and the coordinator prior to the patient coming to the hospital, indicated that the patient had been decompensating soon after leaving a retirement psychiatric center at [facility] in [place], [place]. CLINICAL SUMMARY: Ms. De Paz is a 29-year-old female, with long history of schizoaffective disorder, and has had multiple hospitalizations at [facility] to the inpatient mental health unit. She was admitted this time on 12/23/2019, essentially because of psychosis and agitation. 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 She became quite diluted that she was someone else, and refused to accept oral medications. She also reported to staff that she had seizures. She had decompensated to the point where she was unable to care for herself and was admitted to the hospital. During her stay here, she has been agitated, irritable, elated in mood, at times aggressive, frequently attempting to leave the unit, running towards the door, pulling the firearm, had required frequent direction, and at times restraints as well with anti-agitation medication. DIAGNOSIS: Schizoaffective disorder. SECTION II PROPOSED TREATMENT: * Course of treatment recommended by the treating physician. The treating physician has suggested that she be prescribed oral antipsychotics. This is as follows: a. Invega 3 mg twice a day and that the dose be titrated according to response, up to 6 or 9 mg twice a day as tolerated. If the oral medicine is well tolerated, it has been proposed that she then be given long-acting intramuscular Invega Sustenna 234 mg loading dose, to be followed three days later by Invega Sustenna 156 mg maintenance dose intramuscular. Subsequent to that, would be on the Invega Sustenna monthly injection dose up 234 mg intramuscular. If the patient refuses oral medications, what I would propose is as follows: b. Zyprexa 10 mg intramuscular at various doses, up to a total of 30 mg a day. If that is tolerated, she would be maintained on Invega Sustenna monthly injections, as previously stated, up to 234 mg intramuscular, as well as Cogentin 0.5 mg to 1 mg by mouth for a total of 4 mg a day if Parkinsonian symptoms secondary to the Invega or Zyprexa develop. 2. Reasonable alternatives, if any, are Haldol 5 mg to 10 mg intramuscular and Ativan 2 mg intramuscular in the event that the patient becomes a danger to herself or others during her treatment. If Invega (palperidone) is unable to produce reasonable results in a reasonable period of time, or causes excessive side effects, there are other alternative proposals. This is as follows. a. Haldol 5 mg up to 20 mg daily in divided doses by mouth, and if she has a positive response to that, she could receive Haldol long-acting injectable once a month intramuscular 50 to 200 mg, depending one tablet he well tolerated oral dose of Haldol. If she refused 5 mg up to 20 mg of the intramuscular immediate release Haldol, then the alternative would be risperidone 1 mg up to a total of 4 mg daily orally. If she refused risperidone or a lower dose of Haldol or Zyprexa (whichever is better tolerated) intramuscular could be used either 5 to 20 mg or 5 to 30 mg respectively. b. Abilify 5 mg to 30 mg oral dose, and if tolerated well, then could be given Abilify Maintena 200 mg to 400 mg intramuscular once a month. It should be noted, as she has had multiple previous admissions in the past and some have not been successful and condition decompensated further, it would be necessary to augment one medicine with another, as long as it is safe, to produce therapeutic effects, with the lowest chances of side effects. Should all other treatment options fail, or be poorly tolerated, involuntary electroconvulsive therapy could also be considered, with the frequency of daily treatment for the first week, and then spaced out as appropriate, either augmented with the treatment options above or on its own depending on the practitioner. 3. HAS THE PATIENT BEEN TRIED ON PROPOSED TREATMENT The patient has been tried on nearly all well-known treatments with some positive results in the past, particularly with Haldol and paliperidone. However, poor adherence to recommendations, and the intensity of her illness make remission and prognosis generally guarded. This requires more complex regimens in order to produce reasonable results. 4. ANTICIPATED BENEFITS TO PROPOSED TREATMENT Anticipated benefits include producing long-lasting improvement, and that would increase the chances of her adhering to the regimen, and diminishing days of agitation, and the symptoms of psychosis, including delusions. This would enhance her functioning, including around others. 5. REASONABLE FORESEEABLE ADVERSE SIDE EFFECTS These include Parkinsonian symptoms, weight gain, sedation, and side effects of neuroleptics. In rare instances, neuroleptic malignant syndrome and tardive dyskinesia may develop. However, given the intensity of her illness, it is believed by the treatment team that the benefits of the medicines at this point outweigh the risks. 6. PROGNOSIS WITHOUT TREATMENT. This is extremely poor, and will likely result in perpetuation of psychosis, and agitation, for an extended period of time. SECTION III PATIENTS CAPACITY: 1. Explained to the patient. a. Condition Yes. b. Proposed treatment Yes. c. Anticipated benefits of treatment Yes. d. Risks of adverse side effects of treatment Yes. e. Availability of other treatments and compatible benefits and risks Yes. f. The risk of no treatment Yes. Although attempts were made to explain the reasons for treatment, the patient was quite irritable and agitated, and was unable, due to her illness, to engage in a meaningful conversation regarding them. She also has very poor insight and at times insists that she does not have any difficulties. 2. State the nature of the patients objections to treatment. Please refer to my comments above. She does not think that she has an illness except for possible seizures, and remains diluted, so a conversation, given her irritability and agitation, becomes difficult. 3. Patients capacity. This is quite heavily impaired by her condition, and she does not have the capacity to understand her illness, the proposed treatment, in any meaningful manner, at this point. SECTION IV LIKELIHOOD FOR DANGEROUS BEHAVIOR 1. The patient is believed to be dangerous to others at the hospital unless treated. Yes, as her illness has been intense, she has been frequently agitated and has required frequent directions, including restraints at times to diminish the impact of the aggression and agitation. She has been physically violent toward staff members on more than one occasion. 2. The patient is believed to be likely dangerous to herself if not treated. Yes, given the above, and her agitation, the psychosis, the fluctuating moods, all put her in a position where she may hurt herself, including inadvertently. SECTION V ANY OTHER INFORMATION The patient has from time to time agreed to take intramuscular injections, including chlorpromazine, but frequent injections also run the risk of side effects and anti-agitation medications are for short term use, when rather no other methods have been successful, are not effective in treating the patient in the retirement. At this point, she requires treatment, including over her objection. MEREDITH
== END 2020-04-19 13:08 | DRG 885 ==
LOC: M ED 19:16 → M ED INP 12-23 00:52 → M PSY 12-23 01:52
PROVIDERS: ADMIT Psychiatry & Neurology Psychiatry; ATTEND Psychiatry & Neurology Addiction Medicine
DX: F25.0 Schizoaffective disorder, bipolar type (principal); F14.20 Cocaine dependence, uncomplicated; F15.20 Other stimulant dependence, uncomplicated; F17.200 Nicotine dependence, unspecified, uncomplicated; F12.10 Cannabis abuse, uncomplicated; M54.2 Cervicalgia; Z79.899 Other long term (current) drug therapy; Z88.1 Allergy status to other antibiotic agents; Z88.0 Allergy status to penicillin; Z88.2 Allergy status to sulfonamides; Z88.8 Allergy status to other drugs, medicaments and biological substances; Z91.19 Patient's noncompliance with other medical treatment and regimen; Z78.1 Physical restraint status; Z11.59 Encounter for screening for other viral diseases

== ENCOUNTER → 2021-11-09 | Outpatient (REF) | payer MEDICARE, MEDICAID ==
[~2021-11-09] MED LIST changes: +ARIP10TA32; +ARIP10TA32 PO; -ARIP1TAB; -ARIP1TAB PO; +CIPR7.5D5 AU; -CIPRODEX AU; +HALO10TA20 PO; -HALO5TA PO; +HALO5TAB33 PO; +LISI5TAB11 PO; +PROP10TA56 PO; +haloperidoL IM
[2021-11-09 16:01] LABS: BASO % 0.4 % (0.0-1.0); EOS # 0.3 10^3/uL (0.0-0.5); EOS % 3.1 % (0.0-3.0); HEMOGLOBIN 13.1 g/dl (12.0-15.5); LYMPH # 2.8 10^3/uL (1.5-5.0); LYMPH % 27.8 % (24.0-44.0); MEAN CORPUSCULAR HEMOGLOBIN 27.8 pg (27.0-33.0); MEAN CORPUSCULAR HGB CONC 32.8 g/dl (32.0-36.5); MEAN CORPUSCULAR VOLUME 84.7 fl (80.0-96.0); MONO # 0.5 10^3/uL (0.0-0.8); MONO % 4.7 % (2.0-8.0); NEUTROPHILS # 6.4 10^3/uL (1.5-8.5); NEUTROPHILS % 63.6 % (36.0-66.0); PLATELET COUNT, AUTOMATED 419 10^3/uL (150-450); RED BLOOD COUNT 4.72 10^6/uL (4.00-5.40)
[2021-11-09 16:30] LABS: HCG, SERUM QUALITATIVE NEGATIVE (NEGATIVE)
[2021-11-09 16:35] LABS: ALBUMIN 3.6 GM/DL (3.2-5.2); ALT/SGPT 16 U/L (12-78); BILIRUBIN,TOTAL 0.3 MG/DL (0.2-1.0); BLOOD UREA NITROGEN 11 MG/DL (7-18); CARBON DIOXIDE LEVEL 25 MEQ/L (21-32); CHLORIDE LEVEL 108 MEQ/L (98-107); CHOLESTEROL LEVEL 197 MG/DL (<200); CHOLESTEROL RISK RATIO 3.862 (<5); CREATININE FOR GFR 0.81 MG/DL (0.55-1.30); GLOMERULAR FILTRATION RATE > 60.0 (>60); GLUCOSE, FASTING 152 MG/DL (70-100); HDL CHOLESTEROL 51 MG/DL (>40); LDL CHOLESTEROL 121 MG/DL (<100); NON-HDL-C 146 MG/DL; POTASSIUM SERUM 4.3 MEQ/L (3.5-5.1); PROLACTIN 62.8 NG/ML; SODIUM LEVEL 140 MEQ/L (136-145); TRIGLYCERIDES LEVEL 124 MG/DL (<150)
[2021-11-09 16:39] LABS: HEMOGLOBIN A1c 5.4 %
== END ==
LOC: M LABDRAWC 15:34
PROVIDERS: ATTEND Nurse Practitioner Psychiatric/Mental Health
DX: F20.0 Paranoid schizophrenia (principal)

== ENCOUNTER → 2021-11-29 | Outpatient (REF) | payer MEDICARE, MEDICAID ==
[2021-11-29 15:53] LABS: HEMATOCRIT 39.6 % (36.0-47.0); HEMOGLOBIN 12.8 g/dl (12.0-15.5); MEAN CORPUSCULAR HEMOGLOBIN 26.9 pg (27.0-33.0); MEAN CORPUSCULAR HGB CONC 32.3 g/dl (32.0-36.5); MEAN CORPUSCULAR VOLUME 83.2 fl (80.0-96.0); PLATELET COUNT, AUTOMATED 378 10^3/uL (150-450); RED BLOOD COUNT 4.76 10^6/uL (4.00-5.40)
[2021-11-29 16:17] LABS: HEMOGLOBIN A1c 5.6 %
[2021-11-29 16:33] LABS: ALBUMIN 3.8 GM/DL (3.2-5.2); ALT/SGPT 41 U/L (12-78); BILIRUBIN,TOTAL < 0.1 MG/DL (0.2-1.0); BLOOD UREA NITROGEN 13 MG/DL (7-18); CALCIUM LEVEL 9.8 MG/DL (8.5-10.1); CARBON DIOXIDE LEVEL 28 MEQ/L (21-32); CHLORIDE LEVEL 106 MEQ/L (98-107); CHOLESTEROL LEVEL 202 MG/DL (<200); CHOLESTEROL RISK RATIO 3.672 (<5); CREATININE FOR GFR 0.68 MG/DL (0.55-1.30); FREE T4 1.18 NG/DL (0.76-1.46); GLOMERULAR FILTRATION RATE > 60.0 (>60); GLUCOSE, FASTING 93 MG/DL (70-100); HDL CHOLESTEROL 55 MG/DL (>40); LDL CHOLESTEROL 124 MG/DL (<100); NON-HDL-C 147 MG/DL; SODIUM LEVEL 141 MEQ/L (136-145); TRIGLYCERIDES LEVEL 113 MG/DL (<150)
[2021-11-29 16:44] LABS: CREATININE, URINE 67.3 MG/DL; MALB URINE SIEMENS < 5.0 MG/L; MAU/CREAT RATIO 7.4 MCG/MG (0.0-30.0)
== END ==
LOC: M SFHCCLAY 10:50
PROVIDERS: ATTEND Nurse Practitioner Family
DX: E03.9 Hypothyroidism, unspecified (principal); N91.2 Amenorrhea, unspecified; Z13.220 Encounter for screening for lipoid disorders; E11.9 Type 2 diabetes mellitus without complications

== ENCOUNTER → 2022-02-19 | Outpatient (REF) | payer MEDICARE, MEDICAID ==
[2022-02-19 18:10] LABS: HEMATOCRIT 41.4 % (36.0-47.0); HEMOGLOBIN 13.2 g/dl (12.0-15.5); MEAN CORPUSCULAR HEMOGLOBIN 26.1 pg (27.0-33.0); MEAN CORPUSCULAR HGB CONC 31.9 g/dl (32.0-36.5); PLATELET COUNT, AUTOMATED 377 10^3/uL (150-450); RED BLOOD COUNT 5.05 10^6/uL (4.00-5.40); WHITE BLOOD COUNT 7.8 10^3/uL (4.0-10.0)
[2022-02-19 20:50] LABS: ALBUMIN 3.8 GM/DL (3.2-5.2); ALT/SGPT 29 U/L (12-78); BILIRUBIN,TOTAL 0.4 MG/DL (0.2-1.0); BLOOD UREA NITROGEN 12 MG/DL (7-18); CALCIUM LEVEL 9.2 MG/DL (8.5-10.1); CARBON DIOXIDE LEVEL 26 MEQ/L (21-32); CHLORIDE LEVEL 107 MEQ/L (98-107); CHOLESTEROL LEVEL 208 MG/DL (<200); CREATININE FOR GFR 0.94 MG/DL (0.55-1.30); GLOMERULAR FILTRATION RATE > 60.0 (>60); GLUCOSE, FASTING 124 MG/DL (70-100); HDL CHOLESTEROL 52 MG/DL (>40); LDL CHOLESTEROL 116 MG/DL (<100); NON-HDL-C 156 MG/DL; POTASSIUM SERUM 4.5 MEQ/L (3.5-5.1); SODIUM LEVEL 137 MEQ/L (136-145); TOTAL PROTEIN 6.9 GM/DL (6.4-8.2); TRIGLYCERIDES LEVEL 199 MG/DL (<150)
[2022-02-19 23:26] LABS: HEMOGLOBIN A1c 5.6 %
== END ==
LOC: M SFHCCLAY 14:47
PROVIDERS: ATTEND Nurse Practitioner Family
DX: E11.9 Type 2 diabetes mellitus without complications (principal)

== ENCOUNTER → 2022-05-13 | Outpatient (REF) | payer MEDICARE, MEDICAID ==
[~2022-05-13] MED LIST changes: -CHLO25TA38 PO; +CHLO25TA88 PO
== END ==
LOC: M LABDRAWC 17:42
PROVIDERS: ATTEND Student in an Organized Health Care Education/Training Program
DX: F31.9 Bipolar disorder, unspecified (principal)

== ENCOUNTER 2022-07-21 16:26 | Inpatient (IN) | payer MEDICARE, MEDICAID ==
[~2022-07-21] VITALS: Ht 157.5 cm; Wt 77.3 kg
[2022-07-21] MEDS ORDERED: LORA1TAB4 PO (16:36)
[2022-07-21] MEDS ORDERED: ALPRAZolam 0.5 MG TAB PO ONE (17:15)
[2022-07-21 17:45] LABS: HEMATOCRIT 39.4 % (36.0-47.0); HEMOGLOBIN 13.2 g/dl (12.0-15.5); MEAN CORPUSCULAR HEMOGLOBIN 25.9 pg (27.0-33.0); MEAN CORPUSCULAR HGB CONC 33.5 g/dl (32.0-36.5); MEAN CORPUSCULAR VOLUME 77.3 fl (80.0-96.0); PLATELET COUNT, AUTOMATED 446 10^3/uL (150-450); WHITE BLOOD COUNT 12.7 10^3/uL (4.0-10.0)
[2022-07-21 17:54] LABS: ETHYL ALCOHOL (ETHANOL) 0.003 % (0.000-0.010)
[2022-07-21 17:55] LABS: ACETAMINOPHEN LEVEL < 2.0 UG/ML (10.0-20.0); BILIRUBIN,DIRECT 0.2 MG/DL (<0.4); SALICYLATE LEVEL < 3.0 MG/DL (<30)
[2022-07-21 17:56] LABS: ALKALINE PHOSPHATASE 86 U/L (46-116); ALT/SGPT 46 U/L (7.0-40); AST/SGOT 51 U/L (<34); BILIRUBIN,TOTAL 0.5 MG/DL (0.3-1.2); BLOOD UREA NITROGEN 15 MG/DL (9-23); CALCIUM LEVEL 9.2 MG/DL (8.5-10.1); CARBON DIOXIDE LEVEL 19 MMOL/L (20-31); CHLORIDE LEVEL 103 MMOL/L (98-107); CREATININE FOR GFR 0.84 MG/DL (0.55-1.30); GLOMERULAR FILTRATION RATE > 60.0 (>60); GLUCOSE, FASTING 85 MG/DL (60-100); POTASSIUM SERUM 3.6 MMOL/L (3.5-5.1); SODIUM LEVEL 137 MMOL/L (136-145); TOTAL PROTEIN 7.2 G/DL (5.7-8.2)
[2022-07-21 17:58] LABS: THYROID STIMULATING HORMONE 2.268 uIU/ML (0.55-4.78)
[2022-07-21] MEDS ORDERED: NS 1,000 ML IV ONE (18:25)
[2022-07-21] MEDS ORDERED: LEVO75TA4 PO (23:04)
[2022-07-21] MEDS ORDERED: HALO5TAB33 PO (23:04)
[2022-07-21] MEDS ORDERED: METF-838 PO (23:08)
[2022-07-21] MEDS ORDERED: OLAN2.5T25 PO (23:09)
[2022-07-21] MEDS ORDERED: OLAN1TAB16 PO (23:09)
[2022-07-21] MEDS ORDERED: HALO10AM IM (23:09)
[2022-07-21] MEDS ORDERED: VITMTA PO (23:09)
[2022-07-21] MEDS ORDERED: probiotic gummy PO (23:09)
[2022-07-21] MEDS ORDERED: ARIP10TA32 PO (23:09)
[2022-07-21] MEDS ORDERED: HOME MED LIST COMPLETE! XX SCH (23:10)
[2022-07-22] MEDS ORDERED: OLANZapine ORAL DISINTEGRATING TAB 5MG PO ONE (02:20)
[2022-07-22] MEDS ORDERED: LORazepam 2 MG TAB PO ONE (02:45)
[2022-07-22] MEDS ORDERED: ACETAMINOPHEN TAB 650MG DOSE (2X325MG) PO ONE (11:00)
[2022-07-22] MEDS ORDERED: ALPRAZolam 0.5 MG TAB PO ONE (13:45)
[2022-07-22] MEDS ORDERED: MOM 30ML SUSPENSION UDC PO PRN (14:35)
[2022-07-22] MEDS ORDERED: IBUPROFEN 400MG TAB PO PRN (14:35)
[2022-07-22] MEDS ORDERED: diphenhydrAMINE 25MG CAP PO PRN (14:35)
[2022-07-22] MEDS: metFORMIN XR 500MG TAB *GLUCOPHAGE XR PO SCH (21:44)
[2022-07-23] MEDS: LEVOTHYROXINE 75MCG TABLET (0.075MG) PO SCH (05:40)
[2022-07-23 06:39] VITALS: BP 151/84
[2022-07-23] MEDS: MULTIVITAMINS/MINERALS THERAP 1 TAB PO SCH (09:00)
[2022-07-23] MEDS: NICOTINE 21MG/24HR 1 EA TRANSDERMAL TD SCH ×2 (09:00→09:22)
[2022-07-23] MEDS: LORazepam 1 MG TAB PO SCH ×3 (10:21→20:39)
[2022-07-23] MEDS: ARIPiprazole 10 MG TAB PO SCH (10:21)
[2022-07-23] MEDS ORDERED: NICOTINE 14 MG/24 HR TRANSDERMAL TD PRN (10:40)
[2022-07-23] MEDS: traZODone 50 MG TAB PO PRN (20:39)
[2022-07-23] MEDS: OLANZapine 5 MG TAB PO SCH (20:40)
[2022-07-23] MEDS: metFORMIN XR 500MG TAB *GLUCOPHAGE XR PO SCH (20:40)
[2022-07-24] MEDS: LEVOTHYROXINE 75MCG TABLET (0.075MG) PO SCH (06:16)
[2022-07-24] MEDS: MULTIVITAMINS/MINERALS THERAP 1 TAB PO SCH (08:32)
[2022-07-24] MEDS: NICOTINE 21MG/24HR 1 EA TRANSDERMAL TD SCH (08:32)
[2022-07-24] MEDS: LORazepam 1 MG TAB PO SCH ×3 (08:34→21:10)
[2022-07-24] MEDS: ARIPiprazole 10 MG TAB PO SCH (08:34)
[2022-07-24] MEDS ORDERED: HALOPERIDOL DECANOATE 100 MG/ML 1ML VIAL IM ONE (09:25)
[2022-07-24] MEDS: BENZTROPINE 1 MG TAB PO SCH ×2 (10:21→21:10)
[2022-07-24] MEDS: OLANZapine 5 MG TAB PO SCH (21:00)
[2022-07-24] MEDS: metFORMIN XR 500MG TAB *GLUCOPHAGE XR PO SCH (21:10)
[2022-07-24] MEDS: traZODone 50 MG TAB PO PRN (21:11)
[2022-07-25] MEDS ORDERED: guaiFENesin SYRUP 200MG 10ML UDC PO PRN (01:05)
[2022-07-25] MEDS: CEPACOL LOZENGE PO PRN ×2 (01:27→02:05)
[2022-07-25] MEDS: LEVOTHYROXINE 75MCG TABLET (0.075MG) PO SCH (05:59)
[2022-07-25] MEDS: MULTIVITAMINS/MINERALS THERAP 1 TAB PO SCH (09:00)
[2022-07-25] MEDS: NICOTINE 21MG/24HR 1 EA TRANSDERMAL TD SCH (10:55)
[2022-07-25] MEDS: ARIPiprazole 10 MG TAB PO SCH (10:55)
[2022-07-25] MEDS: BENZTROPINE 1 MG TAB PO SCH ×2 (10:56→19:55)
[2022-07-25] MEDS: LORazepam 1 MG TAB PO SCH ×3 (10:56→19:55)
[2022-07-25] MEDS: metFORMIN XR 500MG TAB *GLUCOPHAGE XR PO SCH (19:55)
[2022-07-26] MEDS: LEVOTHYROXINE 75MCG TABLET (0.075MG) PO SCH (06:13)
[2022-07-26] MEDS: MULTIVITAMINS/MINERALS THERAP 1 TAB PO SCH (09:00)
[2022-07-26] MEDS: LORazepam 1 MG TAB PO SCH ×3 (09:42→20:54)
[2022-07-26] MEDS: BENZTROPINE 1 MG TAB PO SCH ×2 (09:42→20:54)
[2022-07-26] MEDS: ARIPiprazole 10 MG TAB PO SCH (09:42)
[2022-07-26] MEDS: NICOTINE 21MG/24HR 1 EA TRANSDERMAL TD SCH (09:43)
[2022-07-26] MEDS: CEPACOL LOZENGE PO PRN ×2 (11:03→15:11)
[2022-07-26] MEDS: MAALOX 30 ML SUSP *UDC PO PRN (13:53)
[2022-07-26] MEDS: metFORMIN XR 500MG TAB *GLUCOPHAGE XR PO SCH (20:54)
[2022-07-26] MEDS: traZODone 50 MG TAB PO PRN (20:54)
[2022-07-27] MEDS: CEPACOL LOZENGE PO PRN ×3 (00:44→23:06)
[2022-07-27] MEDS: MAALOX 30 ML SUSP *UDC PO PRN ×3 (03:02→19:55)
[2022-07-27] MEDS: LEVOTHYROXINE 75MCG TABLET (0.075MG) PO SCH (05:53)
[2022-07-27] MEDS: MULTIVITAMINS/MINERALS THERAP 1 TAB PO SCH (08:56)
[2022-07-27] MEDS: NICOTINE 21MG/24HR 1 EA TRANSDERMAL TD SCH (08:57)
[2022-07-27] MEDS: ARIPiprazole 10 MG TAB PO SCH (08:59)
[2022-07-27] MEDS: LORazepam 1 MG TAB PO SCH ×3 (08:59→19:55)
[2022-07-27] MEDS: BENZTROPINE 1 MG TAB PO SCH ×2 (08:59→19:56)
[2022-07-27] MEDS ORDERED: diphenhydrAMINE 50MG/ML VIAL IM ONE (11:30)
[2022-07-27] MEDS: metFORMIN XR 500MG TAB *GLUCOPHAGE XR PO SCH (19:56)
[2022-07-28] MEDS: traZODone 50 MG TAB PO PRN (00:31)
[2022-07-28] MEDS: LEVOTHYROXINE 75MCG TABLET (0.075MG) PO SCH (06:05)
[2022-07-28] MEDS: MULTIVITAMINS/MINERALS THERAP 1 TAB PO SCH (08:33)
[2022-07-28] MEDS: NICOTINE POLACRILEX 2 MG GUM PO PRN ×2 (08:45→13:58)
[2022-07-28] MEDS: BENZTROPINE 1 MG TAB PO SCH ×2 (08:46→21:00)
[2022-07-28] MEDS: LORazepam 1 MG TAB PO SCH ×3 (08:46→21:17)
[2022-07-28] MEDS: ARIPiprazole 10 MG TAB PO SCH (08:46)
[2022-07-28] MEDS: MAALOX 30 ML SUSP *UDC PO PRN (13:33)
[2022-07-28] MEDS: CEPACOL LOZENGE PO PRN (19:02)
[2022-07-28] MEDS: metFORMIN XR 500MG TAB *GLUCOPHAGE XR PO SCH (21:00)
[2022-07-29] MEDS: MAALOX 30 ML SUSP *UDC PO PRN ×2 (00:23→23:47)
[2022-07-29] MEDS: LEVOTHYROXINE 75MCG TABLET (0.075MG) PO SCH ×2 (06:00→06:02)
[2022-07-29] MEDS: MULTIVITAMINS/MINERALS THERAP 1 TAB PO SCH (08:52)
[2022-07-29] MEDS: ARIPiprazole 10 MG TAB PO SCH (09:15)
[2022-07-29] MEDS: LORazepam 1 MG TAB PO SCH ×3 (09:15→21:33)
[2022-07-29] MEDS: BENZTROPINE 1 MG TAB PO SCH ×2 (09:15→21:33)
[2022-07-29] MEDS: CEPACOL LOZENGE PO PRN (09:33)
[2022-07-29] MEDS: NICOTINE POLACRILEX 2 MG GUM PO PRN ×2 (10:30→16:40)
[2022-07-29] MEDS: traZODone 50 MG TAB PO PRN (21:33)
[2022-07-29] MEDS: metFORMIN XR 500MG TAB *GLUCOPHAGE XR PO SCH (21:33)
[2022-07-30] MEDS: LEVOTHYROXINE 75MCG TABLET (0.075MG) PO SCH (05:48)
[2022-07-30] MEDS: MULTIVITAMINS/MINERALS THERAP 1 TAB PO SCH (08:23)
[2022-07-30] MEDS: LORazepam 1 MG TAB PO SCH ×3 (08:24→19:58)
[2022-07-30] MEDS: BENZTROPINE 1 MG TAB PO SCH ×2 (08:24→19:58)
[2022-07-30] MEDS: ARIPiprazole 10 MG TAB PO SCH (08:24)
[2022-07-30] MEDS: CEPACOL LOZENGE PO PRN ×3 (09:00→22:02)
[2022-07-30] MEDS: NICOTINE POLACRILEX 2 MG GUM PO PRN (09:37)
[2022-07-30] MEDS ORDERED: diphenhydrAMINE 50MG/ML VIAL IM ONE (10:25)
[2022-07-30] MEDS: traZODone 50 MG TAB PO PRN (19:58)
[2022-07-30] MEDS: metFORMIN XR 500MG TAB *GLUCOPHAGE XR PO SCH (19:58)
[2022-07-31] MEDS: LEVOTHYROXINE 75MCG TABLET (0.075MG) PO SCH (05:52)
[2022-07-31] MEDS: MULTIVITAMINS/MINERALS THERAP 1 TAB PO SCH (08:46)
[2022-07-31] MEDS: LORazepam 1 MG TAB PO SCH ×3 (08:46→21:06)
[2022-07-31] MEDS: ARIPiprazole 10 MG TAB PO SCH (08:46)
[2022-07-31] MEDS: BENZTROPINE 1 MG TAB PO SCH ×2 (08:46→21:06)
[2022-07-31] MEDS: CEPACOL LOZENGE PO PRN ×2 (08:48→19:25)
[2022-07-31] MEDS: NICOTINE POLACRILEX 2 MG GUM PO PRN ×2 (11:52→16:38)
[2022-07-31] MEDS: metFORMIN XR 500MG TAB *GLUCOPHAGE XR PO SCH (21:06)
[2022-07-31] MEDS: traZODone 50 MG TAB PO PRN (23:10)
[2022-08-01] MEDS: LEVOTHYROXINE 75MCG TABLET (0.075MG) PO SCH (05:47)
[2022-08-01] MEDS: CEPACOL LOZENGE PO PRN ×2 (08:29→22:01)
[2022-08-01] MEDS: MULTIVITAMINS/MINERALS THERAP 1 TAB PO SCH (09:00)
[2022-08-01] MEDS: LORazepam 1 MG TAB PO SCH ×3 (09:01→21:02)
[2022-08-01] MEDS: ARIPiprazole 10 MG TAB PO SCH (09:01)
[2022-08-01] MEDS: BENZTROPINE 1 MG TAB PO SCH ×2 (09:01→21:01)
[2022-08-01] MEDS: NICOTINE POLACRILEX 2 MG GUM PO PRN ×2 (11:26→19:37)
[2022-08-01] MEDS: metFORMIN XR 500MG TAB *GLUCOPHAGE XR PO SCH (21:01)
[2022-08-01] MEDS: traZODone 50 MG TAB PO PRN (22:01)
[2022-08-02] MEDS: LEVOTHYROXINE 75MCG TABLET (0.075MG) PO SCH (05:44)
[2022-08-02] MEDS: LORazepam 1 MG TAB PO SCH ×3 (09:23→21:23)
[2022-08-02] MEDS: BENZTROPINE 1 MG TAB PO SCH ×2 (09:23→21:22)
[2022-08-02] MEDS: ARIPiprazole 10 MG TAB PO SCH (09:23)
[2022-08-02] MEDS: CEPACOL LOZENGE PO PRN ×2 (09:28→21:29)
[2022-08-02] MEDS: MAALOX 30 ML SUSP *UDC PO PRN (11:00)
[2022-08-02] MEDS: NICOTINE POLACRILEX 2 MG GUM PO PRN (16:17)
[2022-08-02] MEDS: metFORMIN XR 500MG TAB *GLUCOPHAGE XR PO SCH (21:23)
[2022-08-03] MEDS: LEVOTHYROXINE 75MCG TABLET (0.075MG) PO SCH (05:47)
[2022-08-03] MEDS: BENZTROPINE 1 MG TAB PO SCH ×2 (10:15→20:42)
[2022-08-03] MEDS: ARIPiprazole 10 MG TAB PO SCH (10:15)
[2022-08-03] MEDS: LORazepam 1 MG TAB PO SCH ×3 (10:16→20:42)
[2022-08-03] MEDS: CEPACOL LOZENGE PO PRN ×2 (10:42→19:56)
[2022-08-03] MEDS: NICOTINE POLACRILEX 2 MG GUM PO PRN ×2 (16:21→20:22)
[2022-08-03] MEDS: traZODone 50 MG TAB PO PRN (20:42)
[2022-08-03] MEDS: metFORMIN XR 500MG TAB *GLUCOPHAGE XR PO SCH (20:42)
[2022-08-03] MEDS: MAALOX 30 ML SUSP *UDC PO PRN (22:07)
[2022-08-04] MEDS: LEVOTHYROXINE 75MCG TABLET (0.075MG) PO SCH (05:32)
[2022-08-04] MEDS: ARIPiprazole 10 MG TAB PO SCH (08:43)
[2022-08-04] MEDS: LORazepam 1 MG TAB PO SCH ×3 (08:43→21:35)
[2022-08-04] MEDS: BENZTROPINE 1 MG TAB PO SCH ×2 (08:43→21:33)
[2022-08-04] MEDS: NICOTINE POLACRILEX 2 MG GUM PO PRN ×2 (11:57→17:09)
[2022-08-04] MEDS: CEPACOL LOZENGE PO PRN ×2 (15:43→21:33)
[2022-08-04] MEDS: traZODone 50 MG TAB PO PRN (21:34)
[2022-08-04] MEDS: metFORMIN XR 500MG TAB *GLUCOPHAGE XR PO SCH (21:34)
[2022-08-05] MEDS: MAALOX 30 ML SUSP *UDC PO PRN (01:25)
[2022-08-05] MEDS: LEVOTHYROXINE 75MCG TABLET (0.075MG) PO SCH (05:52)
[2022-08-05] MEDS: BENZTROPINE 1 MG TAB PO SCH ×2 (08:56→20:02)
[2022-08-05] MEDS: LORazepam 1 MG TAB PO SCH ×3 (08:56→20:02)
[2022-08-05] MEDS: ARIPiprazole 10 MG TAB PO SCH (08:57)
[2022-08-05] MEDS: metFORMIN XR 500MG TAB *GLUCOPHAGE XR PO SCH (20:02)
[2022-08-05] MEDS: traZODone 50 MG TAB PO PRN (20:02)
[2022-08-06] MEDS: MAALOX 30 ML SUSP *UDC PO PRN (00:42)
[2022-08-06] MEDS: LEVOTHYROXINE 75MCG TABLET (0.075MG) PO SCH (06:25)
[2022-08-06] MEDS ORDERED: TRAZ-252 PO (08:54)
[2022-08-06] MEDS ORDERED: BENZ-52 PO (08:54)
[2022-08-06] MEDS ORDERED: HALO10AM IM (08:54)
[2022-08-06] MEDS ORDERED: LORA1TAB4 PO (08:54)
[2022-08-06] MEDS ORDERED: ARIP10TA32 PO (08:54)
[2022-08-06] MEDS ORDERED: NICO2GUM PO (08:54)
[2022-08-06] MEDS ORDERED: HALO5TAB33 PO (08:54)
[2022-08-06] MEDS: CEPACOL LOZENGE PO PRN ×2 (09:26→17:25)
[2022-08-06] MEDS: LORazepam 1 MG TAB PO SCH ×3 (09:38→20:50)
[2022-08-06] MEDS: BENZTROPINE 1 MG TAB PO SCH ×2 (09:39→20:51)
[2022-08-06] MEDS ORDERED: HALD100I2 IM (09:39)
[2022-08-06] MEDS: ARIPiprazole 10 MG TAB PO SCH (09:39)
[2022-08-06] MEDS: traZODone 50 MG TAB PO PRN (20:49)
[2022-08-06] MEDS: metFORMIN XR 500MG TAB *GLUCOPHAGE XR PO SCH (20:55)
[2022-08-07] MEDS: LEVOTHYROXINE 75MCG TABLET (0.075MG) PO SCH (05:34)
[2022-08-07] MEDS: CEPACOL LOZENGE PO PRN (08:07)
[2022-08-07] MEDS: ARIPiprazole 10 MG TAB PO SCH ×2 (09:00→11:09)
[2022-08-07] MEDS: BENZTROPINE 1 MG TAB PO SCH ×2 (09:00→11:09)
[2022-08-07] MEDS: LORazepam 1 MG TAB PO SCH ×2 (09:00→11:09)
[2022-08-07] MEDS ORDERED: LORA1TAB4 PO (10:47)
[2022-08-07] MEDS ORDERED: ARIP10TA32 PO (10:47)
== END 2022-08-07 12:40 | disposition home or self-care (01) | DRG 885 ==
LOC: M ED 16:26 → M ED INP 07-22 14:33 → M PSY 07-22 17:16
PROVIDERS: ADMIT Student in an Organized Health Care Education/Training Program; ATTEND Student in an Organized Health Care Education/Training Program
DX: F25.0 Schizoaffective disorder, bipolar type (principal); F17.200 Nicotine dependence, unspecified, uncomplicated; E11.9 Type 2 diabetes mellitus without complications; E03.9 Hypothyroidism, unspecified; I10 Essential (primary) hypertension; M41.9 Scoliosis, unspecified; R32 Unspecified urinary incontinence; Z79.899 Other long term (current) drug therapy; Z88.0 Allergy status to penicillin; Z88.2 Allergy status to sulfonamides; Z88.1 Allergy status to other antibiotic agents; Z88.8 Allergy status to other drugs, medicaments and biological substances; Z79.84 Long term (current) use of oral hypoglycemic drugs; Z79.890 Hormone replacement therapy

== ENCOUNTER 2022-08-17 14:56 | Emergency (ER) | payer MEDICARE, MEDICAID ==
[~2022-08-17] VITALS: Ht 157.5 cm; Wt 113.6 kg
[2022-08-17 14:56] VITALS: BP 169/102
[~2022-08-17 14:56] MED LIST changes: +LEVO75TA4 PO; +LORA1TAB4 PO; +METF-838 PO; +NICO2GUM PO; +NYST-38; -NYST50SS; +OLAN1TAB16 PO; +OLAN2.5T25 PO; +VITMTA PO; +probiotic gummy PO
== END 2022-08-17 15:30 | disposition left against medical advice (07) ==
LOC: M ED 15:23
DX: Z53.21 Procedure and treatment not carried out due to patient leaving prior to being seen by health care provider (principal)

== ENCOUNTER 2022-08-17 16:24 | Inpatient (IN) | payer MEDICARE, MEDICAID ==
[~2022-08-17] VITALS: Ht 157.5 cm; Wt 95.5 kg
[~2022-08-17 16:24] MED LIST changes: -BENZ-52 PO; +BENZ1TAB5 PO
[2022-08-17] MEDS ORDERED: LORazepam 2 MG TAB PO STA (16:46)
[2022-08-17] MEDS ORDERED: HOME MED LIST COMPLETE! XX SCH (18:55)
[2022-08-17 19:08] LABS: HEMATOCRIT 40.1 % (36.0-47.0); HEMOGLOBIN 12.3 g/dl (12.0-15.5); MEAN CORPUSCULAR HEMOGLOBIN 24.6 pg (27.0-33.0); MEAN CORPUSCULAR HGB CONC 30.7 g/dl (32.0-36.5); MEAN CORPUSCULAR VOLUME 80.2 fl (80.0-96.0); PLATELET COUNT, AUTOMATED 391 10^3/uL (150-450); WHITE BLOOD COUNT 15.6 10^3/uL (4.0-10.0)
[2022-08-17 19:33] LABS: ETHYL ALCOHOL (ETHANOL) 0.003 % (0.000-0.010); HCG, SERUM QUALITATIVE NEGATIVE (NEGATIVE)
[2022-08-17 19:34] LABS: ACETAMINOPHEN LEVEL < 2.0 UG/ML (10.0-20.0); BILIRUBIN,DIRECT 0.2 MG/DL (<0.4)
[2022-08-17 19:35] LABS: ALBUMIN 4.3 G/DL (3.2-5.2); ALKALINE PHOSPHATASE 90 U/L (46-116); ALT/SGPT 32 U/L (7.0-40); AST/SGOT 29 U/L (<34); BILIRUBIN,TOTAL 0.4 MG/DL (0.3-1.2); BLOOD UREA NITROGEN 9 MG/DL (9-23); CALCIUM LEVEL 9.3 MG/DL (8.5-10.1); CARBON DIOXIDE LEVEL 15 MMOL/L (20-31); CHLORIDE LEVEL 103 MMOL/L (98-107); CREATININE FOR GFR 0.75 MG/DL (0.55-1.30); GLOMERULAR FILTRATION RATE > 60.0 (>60); GLUCOSE, FASTING 87 MG/DL (60-100); POTASSIUM SERUM 4.3 MMOL/L (3.5-5.1); SALICYLATE LEVEL < 3.0 MG/DL (<30); SODIUM LEVEL 136 MMOL/L (136-145); TOTAL PROTEIN 7.1 G/DL (5.7-8.2)
[2022-08-17 19:37] LABS: THYROID STIMULATING HORMONE 0.875 uIU/ML (0.55-4.78)
[2022-08-17 19:41] LABS: RSV AMPLIFICATION NEGATIVE (NEGATIVE)
[2022-08-18] MEDS ORDERED: traZODone 50 MG TAB PO PRN (08:05)
[2022-08-18 08:57] LABS: AMPHETAMINES LEVEL URINE NEGATIVE (NEGATIVE)
[2022-08-18 08:58] LABS: BARBITURATES URINE NEGATIVE (NEGATIVE); BENZODIAZEPINES URINE NEGATIVE (NEGATIVE); CANNABINOIDS URINE NEGATIVE (NEGATIVE); COCAINE METABOLITE URINE NEGATIVE (NEGATIVE); METHADONE URINE NEGATIVE (NEGATIVE); OPIATES URINE NEGATIVE (NEGATIVE); PHENCYCLIDINE URINE NEGATIVE (NEGATIVE)
[2022-08-18] MEDS: BENZTROPINE 1 MG TAB PO SCH ×2 (09:03→21:10)
[2022-08-18] MEDS: ARIPiprazole 10 MG TAB PO SCH (09:03)
[2022-08-18] MEDS ORDERED: metFORMIN XR 500MG TAB *GLUCOPHAGE XR PO SCH (21:00)
[2022-08-19] MEDS ORDERED: LEVOTHYROXINE 75MCG TABLET (0.075MG) PO SCH (06:00)
[2022-08-19] MEDS: ARIPiprazole 10 MG TAB PO SCH (09:46)
[2022-08-19] MEDS: BENZTROPINE 1 MG TAB PO SCH ×2 (09:46→21:00)
[2022-08-19] MEDS ORDERED: NICOTINE 21MG/24HR 1 EA TRANSDERMAL TD ONE (11:30)
[2022-08-19] MEDS ORDERED: IBUPROFEN 400MG TAB PO PRN (12:30)
[2022-08-19] MEDS ORDERED: LORazepam 1 MG TAB PO PRN (12:30)
[2022-08-19] MEDS ORDERED: MOM 30ML SUSPENSION UDC PO PRN (12:30)
[2022-08-19] MEDS: metFORMIN XR 500MG TAB *GLUCOPHAGE XR PO SCH (17:48)
[2022-08-20] MEDS: LEVOTHYROXINE 75MCG TABLET (0.075MG) PO SCH (05:22)
[2022-08-20] MEDS: fluPHENAZine 5MG TABLET PO SCH ×2 (09:00→21:00)
[2022-08-20] MEDS: ARIPiprazole 10 MG TAB PO SCH (09:00)
[2022-08-20] MEDS: BENZTROPINE 1 MG TAB PO SCH ×2 (09:00→21:00)
[2022-08-20] MEDS: MULTIVITAMINS/MINERALS THERAP 1 TAB PO SCH (09:00)
[2022-08-20] MEDS: NICOTINE POLACRILEX 2 MG GUM PO PRN (13:01)
[2022-08-20] MEDS: metFORMIN XR 500MG TAB *GLUCOPHAGE XR PO SCH (18:00)
[2022-08-21] MEDS: LEVOTHYROXINE 75MCG TABLET (0.075MG) PO SCH (06:00)
[2022-08-21] MEDS: ARIPiprazole 10 MG TAB PO SCH (08:48)
[2022-08-21] MEDS: BENZTROPINE 1 MG TAB PO SCH ×2 (08:48→21:00)
[2022-08-21] MEDS: MULTIVITAMINS/MINERALS THERAP 1 TAB PO SCH (08:48)
[2022-08-21] MEDS: fluPHENAZine 5MG TABLET PO SCH ×2 (08:48→21:00)
[2022-08-21] MEDS: NICOTINE POLACRILEX 2 MG GUM PO PRN (08:57)
[2022-08-21] MEDS: metFORMIN XR 500MG TAB *GLUCOPHAGE XR PO SCH (17:35)
[2022-08-22] MEDS: LEVOTHYROXINE 75MCG TABLET (0.075MG) PO SCH (06:00)
[2022-08-22] MEDS: BENZTROPINE 1 MG TAB PO SCH ×2 (08:52→20:20)
[2022-08-22] MEDS: fluPHENAZine 5MG TABLET PO SCH ×2 (08:52→20:21)
[2022-08-22] MEDS: ARIPiprazole 10 MG TAB PO SCH (08:52)
[2022-08-22] MEDS: MULTIVITAMINS/MINERALS THERAP 1 TAB PO SCH (08:52)
[2022-08-22] MEDS: metFORMIN XR 500MG TAB *GLUCOPHAGE XR PO SCH (18:00)
[2022-08-23] MEDS: LEVOTHYROXINE 75MCG TABLET (0.075MG) PO SCH (06:00)
[2022-08-23] MEDS: MULTIVITAMINS/MINERALS THERAP 1 TAB PO SCH (09:00)
[2022-08-23] MEDS: fluPHENAZine 5MG TABLET PO SCH ×2 (09:00→21:00)
[2022-08-23] MEDS ORDERED: HALOPERIDOL DECANOATE 100 MG/ML 1ML VIAL IM SCH (09:00)
[2022-08-23] MEDS: ARIPiprazole 10 MG TAB PO SCH (09:00)
[2022-08-23] MEDS: BENZTROPINE 1 MG TAB PO SCH ×2 (09:00→21:00)
[2022-08-23] MEDS: NICOTINE POLACRILEX 2 MG GUM PO PRN ×2 (09:35→16:23)
[2022-08-23] MEDS: metFORMIN XR 500MG TAB *GLUCOPHAGE XR PO SCH (17:33)
[2022-08-24] MEDS: LEVOTHYROXINE 75MCG TABLET (0.075MG) PO SCH (05:35)
[2022-08-24] MEDS: fluPHENAZine 5MG TABLET PO SCH ×2 (09:00→20:47)
[2022-08-24] MEDS: ARIPiprazole 10 MG TAB PO SCH (09:00)
[2022-08-24] MEDS: MULTIVITAMINS/MINERALS THERAP 1 TAB PO SCH (09:00)
[2022-08-24] MEDS: BENZTROPINE 1 MG TAB PO SCH ×2 (09:00→20:47)
[2022-08-24] MEDS: metFORMIN XR 500MG TAB *GLUCOPHAGE XR PO SCH (17:37)
[2022-08-25] MEDS: LEVOTHYROXINE 75MCG TABLET (0.075MG) PO SCH (05:07)
[2022-08-25] MEDS: ARIPiprazole 10 MG TAB PO SCH (09:00)
[2022-08-25] MEDS: BENZTROPINE 1 MG TAB PO SCH ×2 (09:00→21:00)
[2022-08-25] MEDS: fluPHENAZine 5MG TABLET PO SCH ×2 (09:00→21:00)
[2022-08-25] MEDS: MULTIVITAMINS/MINERALS THERAP 1 TAB PO SCH (09:00)
[2022-08-25] MEDS: metFORMIN XR 500MG TAB *GLUCOPHAGE XR PO SCH (17:45)
[2022-08-26] MEDS: LEVOTHYROXINE 75MCG TABLET (0.075MG) PO SCH (06:00)
[2022-08-26] MEDS: ARIPiprazole 10 MG TAB PO SCH (09:00)
[2022-08-26] MEDS: fluPHENAZine 5MG TABLET PO SCH ×2 (09:00→21:00)
[2022-08-26] MEDS: MULTIVITAMINS/MINERALS THERAP 1 TAB PO SCH (09:00)
[2022-08-26] MEDS: BENZTROPINE 1 MG TAB PO SCH ×2 (09:00→21:00)
[2022-08-26] MEDS: metFORMIN XR 500MG TAB *GLUCOPHAGE XR PO SCH (17:56)
[2022-08-27] MEDS: LEVOTHYROXINE 75MCG TABLET (0.075MG) PO SCH (05:53)
[2022-08-27] MEDS: ARIPiprazole 10 MG TAB PO SCH (09:00)
[2022-08-27] MEDS: fluPHENAZine 5MG TABLET PO SCH ×2 (09:00→21:00)
[2022-08-27] MEDS: MULTIVITAMINS/MINERALS THERAP 1 TAB PO SCH (09:00)
[2022-08-27] MEDS: BENZTROPINE 1 MG TAB PO SCH ×2 (09:00→21:00)
[2022-08-27] MEDS ORDERED: HALOPERIDOL DECANOATE 100 MG/ML 1ML VIAL IM ONE (11:30)
[2022-08-27] MEDS: MAALOX 30 ML SUSP *UDC PO PRN (17:03)
[2022-08-27] MEDS: metFORMIN XR 500MG TAB *GLUCOPHAGE XR PO SCH (17:48)
[2022-08-28] MEDS: LEVOTHYROXINE 75MCG TABLET (0.075MG) PO SCH (05:22)
[2022-08-28] MEDS: MULTIVITAMINS/MINERALS THERAP 1 TAB PO SCH (09:00)
[2022-08-28] MEDS: fluPHENAZine 5MG TABLET PO SCH ×2 (09:00→20:47)
[2022-08-28] MEDS: BENZTROPINE 1 MG TAB PO SCH ×2 (09:00→20:47)
[2022-08-28] MEDS: ARIPiprazole 10 MG TAB PO SCH (09:00)
[2022-08-28] MEDS: metFORMIN XR 500MG TAB *GLUCOPHAGE XR PO SCH (18:00)
[2022-08-29] MEDS: LEVOTHYROXINE 75MCG TABLET (0.075MG) PO SCH (05:14)
[2022-08-29] MEDS: fluPHENAZine 5MG TABLET PO SCH ×2 (09:00→20:24)
[2022-08-29] MEDS: BENZTROPINE 1 MG TAB PO SCH ×2 (09:00→20:24)
[2022-08-29] MEDS: ARIPiprazole 10 MG TAB PO SCH (09:00)
[2022-08-29] MEDS: MULTIVITAMINS/MINERALS THERAP 1 TAB PO SCH (09:00)
[2022-08-29] MEDS: metFORMIN XR 500MG TAB *GLUCOPHAGE XR PO SCH (17:18)
[2022-08-30] MEDS: LEVOTHYROXINE 75MCG TABLET (0.075MG) PO SCH (05:43)
[2022-08-30] MEDS: BENZTROPINE 1 MG TAB PO SCH ×2 (09:00→21:00)
[2022-08-30] MEDS: MULTIVITAMINS/MINERALS THERAP 1 TAB PO SCH (09:00)
[2022-08-30] MEDS: ARIPiprazole 10 MG TAB PO SCH (09:00)
[2022-08-30] MEDS: fluPHENAZine 5MG TABLET PO SCH ×2 (09:00→21:00)
[2022-08-30] MEDS: metFORMIN XR 500MG TAB *GLUCOPHAGE XR PO SCH (17:56)
[2022-08-31] MEDS: LEVOTHYROXINE 75MCG TABLET (0.075MG) PO SCH (06:00)
[2022-08-31] MEDS: BENZTROPINE 1 MG TAB PO SCH ×2 (08:47→21:00)
[2022-08-31] MEDS: ARIPiprazole 10 MG TAB PO SCH (08:47)
[2022-08-31] MEDS: fluPHENAZine 5MG TABLET PO SCH ×2 (08:47→21:00)
[2022-08-31] MEDS: MULTIVITAMINS/MINERALS THERAP 1 TAB PO SCH (08:47)
[2022-08-31] MEDS: metFORMIN XR 500MG TAB *GLUCOPHAGE XR PO SCH (17:52)
[2022-09-01] MEDS: LEVOTHYROXINE 75MCG TABLET (0.075MG) PO SCH (06:00)
[2022-09-01] MEDS: ARIPiprazole 10 MG TAB PO SCH (08:38)
[2022-09-01] MEDS: fluPHENAZine 5MG TABLET PO SCH ×2 (08:38→20:44)
[2022-09-01] MEDS: BENZTROPINE 1 MG TAB PO SCH ×2 (08:38→20:44)
[2022-09-01] MEDS: MULTIVITAMINS/MINERALS THERAP 1 TAB PO SCH (08:38)
[2022-09-01] MEDS: metFORMIN XR 500MG TAB *GLUCOPHAGE XR PO SCH (17:31)
[2022-09-02] MEDS: LEVOTHYROXINE 75MCG TABLET (0.075MG) PO SCH (05:21)
[2022-09-02] MEDS: MULTIVITAMINS/MINERALS THERAP 1 TAB PO SCH (09:00)
[2022-09-02] MEDS: BENZTROPINE 1 MG TAB PO SCH ×2 (09:00→21:00)
[2022-09-02] MEDS: fluPHENAZine 5MG TABLET PO SCH ×2 (09:00→21:00)
[2022-09-02] MEDS: ARIPiprazole 10 MG TAB PO SCH (09:00)
[2022-09-02] MEDS: metFORMIN XR 500MG TAB *GLUCOPHAGE XR PO SCH (18:00)
[2022-09-03] MEDS: LEVOTHYROXINE 75MCG TABLET (0.075MG) PO SCH (05:31)
[2022-09-03] MEDS: MULTIVITAMINS/MINERALS THERAP 1 TAB PO SCH (09:00)
[2022-09-03] MEDS: ARIPiprazole 10 MG TAB PO SCH (09:00)
[2022-09-03] MEDS: BENZTROPINE 1 MG TAB PO SCH ×2 (09:00→21:00)
[2022-09-03] MEDS: fluPHENAZine 5MG TABLET PO SCH ×2 (09:00→21:00)
[2022-09-03] MEDS: metFORMIN XR 500MG TAB *GLUCOPHAGE XR PO SCH (18:00)
[2022-09-04] MEDS: LEVOTHYROXINE 75MCG TABLET (0.075MG) PO SCH (05:40)
[2022-09-04] MEDS: ARIPiprazole 10 MG TAB PO SCH (09:00)
[2022-09-04] MEDS: fluPHENAZine 5MG TABLET PO SCH ×2 (09:00→21:00)
[2022-09-04] MEDS: BENZTROPINE 1 MG TAB PO SCH ×2 (09:00→21:00)
[2022-09-04] MEDS: MULTIVITAMINS/MINERALS THERAP 1 TAB PO SCH (09:00)
[2022-09-04] MEDS: metFORMIN XR 500MG TAB *GLUCOPHAGE XR PO SCH (18:00)
[2022-09-05] MEDS: LEVOTHYROXINE 75MCG TABLET (0.075MG) PO SCH (06:00)
[2022-09-05] MEDS: BENZTROPINE 1 MG TAB PO SCH ×2 (09:00→21:00)
[2022-09-05] MEDS: MULTIVITAMINS/MINERALS THERAP 1 TAB PO SCH (09:00)
[2022-09-05] MEDS: ARIPiprazole 10 MG TAB PO SCH (09:00)
[2022-09-05] MEDS: fluPHENAZine 5MG TABLET PO SCH ×2 (09:00→21:00)
[2022-09-05] MEDS: metFORMIN XR 500MG TAB *GLUCOPHAGE XR PO SCH (17:01)
[2022-09-06] MEDS: LEVOTHYROXINE 75MCG TABLET (0.075MG) PO SCH (06:00)
[2022-09-06] MEDS: fluPHENAZine 5MG TABLET PO SCH ×2 (08:42→20:22)
[2022-09-06] MEDS: ARIPiprazole 10 MG TAB PO SCH (08:42)
[2022-09-06] MEDS: MULTIVITAMINS/MINERALS THERAP 1 TAB PO SCH (08:42)
[2022-09-06] MEDS: BENZTROPINE 1 MG TAB PO SCH ×2 (08:42→20:22)
[2022-09-06] MEDS: metFORMIN XR 500MG TAB *GLUCOPHAGE XR PO SCH (18:00)
[2022-09-06] MEDS: NICOTINE POLACRILEX 2 MG GUM PO PRN (18:07)
[2022-09-07] MEDS: LEVOTHYROXINE 75MCG TABLET (0.075MG) PO SCH (05:19)
[2022-09-07] MEDS: fluPHENAZine 5MG TABLET PO SCH ×2 (09:00→20:30)
[2022-09-07] MEDS: ARIPiprazole 10 MG TAB PO SCH (09:00)
[2022-09-07] MEDS: MULTIVITAMINS/MINERALS THERAP 1 TAB PO SCH (09:00)
[2022-09-07] MEDS: BENZTROPINE 1 MG TAB PO SCH ×2 (09:00→20:30)
[2022-09-07] MEDS: metFORMIN XR 500MG TAB *GLUCOPHAGE XR PO SCH (17:28)
[2022-09-08] MEDS: LEVOTHYROXINE 75MCG TABLET (0.075MG) PO SCH (05:37)
[2022-09-08] MEDS: BENZTROPINE 1 MG TAB PO SCH ×2 (09:00→21:00)
[2022-09-08] MEDS: fluPHENAZine 5MG TABLET PO SCH ×2 (09:00→21:00)
[2022-09-08] MEDS: ARIPiprazole 10 MG TAB PO SCH (09:00)
[2022-09-08] MEDS: MULTIVITAMINS/MINERALS THERAP 1 TAB PO SCH (09:00)
[2022-09-08] MEDS: metFORMIN XR 500MG TAB *GLUCOPHAGE XR PO SCH (18:00)
[2022-09-09] MEDS: LEVOTHYROXINE 75MCG TABLET (0.075MG) PO SCH (06:00)
[2022-09-09] MEDS: MULTIVITAMINS/MINERALS THERAP 1 TAB PO SCH (09:00)
[2022-09-09] MEDS: ARIPiprazole 10 MG TAB PO SCH (09:00)
[2022-09-09] MEDS: BENZTROPINE 1 MG TAB PO SCH ×2 (09:00→21:00)
[2022-09-09] MEDS: fluPHENAZine 5MG TABLET PO SCH ×2 (09:00→21:00)
[2022-09-09] MEDS: metFORMIN XR 500MG TAB *GLUCOPHAGE XR PO SCH (17:00)
[2022-09-10] MEDS: LEVOTHYROXINE 75MCG TABLET (0.075MG) PO SCH (06:00)
[2022-09-10] MEDS: fluPHENAZine 5MG TABLET PO SCH ×2 (09:00→21:00)
[2022-09-10] MEDS: MULTIVITAMINS/MINERALS THERAP 1 TAB PO SCH (09:00)
[2022-09-10] MEDS: ARIPiprazole 10 MG TAB PO SCH (09:00)
[2022-09-10] MEDS: BENZTROPINE 1 MG TAB PO SCH ×2 (09:00→21:00)
[2022-09-10] MEDS: metFORMIN XR 500MG TAB *GLUCOPHAGE XR PO SCH (17:39)
[2022-09-11] MEDS: LEVOTHYROXINE 75MCG TABLET (0.075MG) PO SCH (05:34)
[2022-09-11] MEDS: ARIPiprazole 10 MG TAB PO SCH (09:00)
[2022-09-11] MEDS: BENZTROPINE 1 MG TAB PO SCH ×2 (09:00→20:00)
[2022-09-11] MEDS: MULTIVITAMINS/MINERALS THERAP 1 TAB PO SCH (09:00)
[2022-09-11] MEDS: fluPHENAZine 5MG TABLET PO SCH ×2 (09:00→20:00)
[2022-09-11] MEDS: LORazepam 2 MG TAB PO STA ×2 (09:57→10:38)
[2022-09-11] MEDS: metFORMIN XR 500MG TAB *GLUCOPHAGE XR PO SCH (17:17)
[2022-09-11] MEDS: LORazepam 2 MG TAB PO PRN (21:39)
[2022-09-12] MEDS: LEVOTHYROXINE 75MCG TABLET (0.075MG) PO SCH (06:00)
[2022-09-12] MEDS: fluPHENAZine 5MG TABLET PO SCH ×2 (09:00→21:00)
[2022-09-12] MEDS: ARIPiprazole 10 MG TAB PO SCH (09:00)
[2022-09-12] MEDS: MULTIVITAMINS/MINERALS THERAP 1 TAB PO SCH (09:00)
[2022-09-12] MEDS: BENZTROPINE 1 MG TAB PO SCH ×2 (09:00→21:00)
[2022-09-12] MEDS: metFORMIN XR 500MG TAB *GLUCOPHAGE XR PO SCH (17:00)
[2022-09-12] MEDS: LORazepam 2 MG TAB PO PRN (23:03)
[2022-09-12] MEDS ORDERED: diphenhydrAMINE 50MG/ML VIAL IM STA (23:38)
[2022-09-12] MEDS ORDERED: LORazepam 2 MG/ML 1ML VIAL IM STA (23:38)
[2022-09-12] MEDS ORDERED: HALOPERIDOL 5MG/ML 1ML VIAL IM STA (23:38)
[2022-09-13] MEDS: LEVOTHYROXINE 75MCG TABLET (0.075MG) PO SCH (05:56)
[2022-09-13] MEDS: fluPHENAZine 5MG TABLET PO SCH ×2 (09:00→20:31)
[2022-09-13] MEDS: MULTIVITAMINS/MINERALS THERAP 1 TAB PO SCH (09:00)
[2022-09-13] MEDS: ARIPiprazole 10 MG TAB PO SCH (09:00)
[2022-09-13] MEDS: BENZTROPINE 1 MG TAB PO SCH ×2 (09:00→20:31)
[2022-09-13] MEDS: LORazepam 2 MG TAB PO PRN (13:20)
[2022-09-13] MEDS: metFORMIN XR 500MG TAB *GLUCOPHAGE XR PO SCH (18:00)
[2022-09-14] MEDS: LEVOTHYROXINE 75MCG TABLET (0.075MG) PO SCH (05:50)
[2022-09-14] MEDS: BENZTROPINE 1 MG TAB PO SCH ×2 (09:00→20:27)
[2022-09-14] MEDS: ARIPiprazole 10 MG TAB PO SCH (09:00)
[2022-09-14] MEDS: fluPHENAZine 5MG TABLET PO SCH ×2 (09:00→20:27)
[2022-09-14] MEDS: MULTIVITAMINS/MINERALS THERAP 1 TAB PO SCH (09:00)
[2022-09-14] MEDS: LORazepam 2 MG TAB PO PRN ×2 (10:17→20:27)
[2022-09-14] MEDS: metFORMIN XR 500MG TAB *GLUCOPHAGE XR PO SCH (18:00)
[2022-09-15] MEDS: LEVOTHYROXINE 75MCG TABLET (0.075MG) PO SCH (06:00)
[2022-09-15] MEDS: fluPHENAZine 5MG TABLET PO SCH ×2 (09:00→20:27)
[2022-09-15] MEDS: MULTIVITAMINS/MINERALS THERAP 1 TAB PO SCH (09:00)
[2022-09-15] MEDS: ARIPiprazole 10 MG TAB PO SCH (09:00)
[2022-09-15] MEDS: BENZTROPINE 1 MG TAB PO SCH ×2 (09:00→20:26)
[2022-09-15] MEDS: LORazepam 2 MG TAB PO PRN ×2 (10:42→18:09)
[2022-09-15] MEDS: NICOTINE POLACRILEX 2 MG GUM PO PRN (14:46)
[2022-09-15] MEDS: metFORMIN XR 500MG TAB *GLUCOPHAGE XR PO SCH (17:54)
[2022-09-16] MEDS: LEVOTHYROXINE 75MCG TABLET (0.075MG) PO SCH (05:34)
[2022-09-16] MEDS: NICOTINE POLACRILEX 2 MG GUM PO PRN (07:37)
[2022-09-16] MEDS: LORazepam 2 MG TAB PO PRN (07:37)
[2022-09-16] MEDS: ARIPiprazole 10 MG TAB PO SCH (09:00)
[2022-09-16] MEDS: MULTIVITAMINS/MINERALS THERAP 1 TAB PO SCH (09:00)
[2022-09-16] MEDS: fluPHENAZine 5MG TABLET PO SCH ×2 (09:00→20:07)
[2022-09-16] MEDS: BENZTROPINE 1 MG TAB PO SCH ×2 (09:00→20:07)
[2022-09-16] MEDS ORDERED: diphenhydrAMINE 25MG CAP PO ONE (12:20)
[2022-09-16] MEDS ORDERED: OLANZapine ORAL DISINTEGRATING TAB 5MG PO ONE (12:20)
[2022-09-16] MEDS: metFORMIN XR 500MG TAB *GLUCOPHAGE XR PO SCH (17:06)
[2022-09-16] MEDS ORDERED: diphenhydrAMINE 50MG/ML VIAL IM STA (22:53)
[2022-09-16] MEDS ORDERED: LORazepam 2 MG/ML 1ML VIAL IM STA (22:53)
[2022-09-16] MEDS ORDERED: HALOPERIDOL 5MG/ML 1ML VIAL IM STA (22:53)
[2022-09-17] MEDS: LEVOTHYROXINE 75MCG TABLET (0.075MG) PO SCH (05:17)
[2022-09-17] MEDS: BENZTROPINE 1 MG TAB PO SCH ×2 (08:53→20:47)
[2022-09-17] MEDS: fluPHENAZine 5MG TABLET PO SCH ×2 (08:53→20:48)
[2022-09-17] MEDS: ARIPiprazole 10 MG TAB PO SCH (08:53)
[2022-09-17] MEDS: MULTIVITAMINS/MINERALS THERAP 1 TAB PO SCH (08:53)
[2022-09-17] MEDS: NICOTINE POLACRILEX 2 MG GUM PO PRN (10:40)
[2022-09-17] MEDS: LORazepam 2 MG TAB PO PRN ×2 (11:11→21:24)
[2022-09-17] MEDS: metFORMIN XR 500MG TAB *GLUCOPHAGE XR PO SCH (17:41)
[2022-09-18] MEDS: LEVOTHYROXINE 75MCG TABLET (0.075MG) PO SCH (06:00)
[2022-09-18] MEDS: MULTIVITAMINS/MINERALS THERAP 1 TAB PO SCH (09:00)
[2022-09-18] MEDS: fluPHENAZine 5MG TABLET PO SCH ×3 (09:00→20:02)
[2022-09-18] MEDS: ARIPiprazole 10 MG TAB PO SCH (09:26)
[2022-09-18] MEDS: BENZTROPINE 1 MG TAB PO SCH ×2 (09:26→20:02)
[2022-09-18] MEDS: LORazepam 2 MG TAB PO PRN (09:28)
[2022-09-18] MEDS: metFORMIN XR 500MG TAB *GLUCOPHAGE XR PO SCH (17:52)
[2022-09-18] MEDS: NICOTINE POLACRILEX 2 MG GUM PO PRN (20:02)
[2022-09-19] MEDS: traZODone 50 MG TAB PO PRN ×2 (00:54→21:07)
[2022-09-19] MEDS: LEVOTHYROXINE 75MCG TABLET (0.075MG) PO SCH (05:57)
[2022-09-19] MEDS: fluPHENAZine 5MG TABLET PO SCH ×2 (09:00→20:28)
[2022-09-19] MEDS: MULTIVITAMINS/MINERALS THERAP 1 TAB PO SCH (09:00)
[2022-09-19] MEDS: BENZTROPINE 1 MG TAB PO SCH ×2 (09:00→20:28)
[2022-09-19] MEDS: ARIPiprazole 10 MG TAB PO SCH (09:00)
[2022-09-19] MEDS: LORazepam 2 MG TAB PO PRN ×2 (12:11→21:07)
[2022-09-19] MEDS: metFORMIN XR 500MG TAB *GLUCOPHAGE XR PO SCH (17:10)
[2022-09-20] MEDS: LEVOTHYROXINE 75MCG TABLET (0.075MG) PO SCH ×2 (06:00→10:12)
[2022-09-20] MEDS: MULTIVITAMINS/MINERALS THERAP 1 TAB PO SCH (09:00)
[2022-09-20] MEDS: ARIPiprazole 10 MG TAB PO SCH (09:59)
[2022-09-20] MEDS: BENZTROPINE 1 MG TAB PO SCH ×2 (09:59→20:37)
[2022-09-20] MEDS: fluPHENAZine 5MG TABLET PO SCH (09:59)
[2022-09-20] MEDS: metFORMIN XR 500MG TAB *GLUCOPHAGE XR PO SCH (17:06)
[2022-09-21] MEDS: LEVOTHYROXINE 75MCG TABLET (0.075MG) PO SCH ×2 (05:52→07:15)
[2022-09-21] MEDS: ARIPiprazole 10 MG TAB PO SCH (07:15)
[2022-09-21] MEDS: BENZTROPINE 1 MG TAB PO SCH ×2 (07:16→20:50)
[2022-09-21] MEDS: LORazepam 2 MG TAB PO PRN (07:18)
[2022-09-21] MEDS: MULTIVITAMINS/MINERALS THERAP 1 TAB PO SCH (09:00)
[2022-09-21] MEDS: metFORMIN XR 500MG TAB *GLUCOPHAGE XR PO SCH (18:00)
[2022-09-21] MEDS: traZODone 50 MG TAB PO PRN (20:50)
[2022-09-22] MEDS: MULTIVITAMINS/MINERALS THERAP 1 TAB PO SCH (09:00)
[2022-09-22] MEDS: ARIPiprazole 10 MG TAB PO SCH (10:20)
[2022-09-22] MEDS: BENZTROPINE 1 MG TAB PO SCH ×2 (10:20→21:00)
[2022-09-22] MEDS: LEVOTHYROXINE 75MCG TABLET (0.075MG) PO SCH (10:20)
[2022-09-22] MEDS: LORazepam 2 MG TAB PO PRN ×2 (10:21→21:30)
[2022-09-22] MEDS: metFORMIN XR 500MG TAB *GLUCOPHAGE XR PO SCH (17:08)
[2022-09-22] MEDS: traZODone 50 MG TAB PO PRN (21:27)
[2022-09-23] MEDS: LEVOTHYROXINE 75MCG TABLET (0.075MG) PO SCH (06:00)
[2022-09-23] MEDS: ARIPiprazole 10 MG TAB PO SCH (09:00)
[2022-09-23] MEDS: BENZTROPINE 1 MG TAB PO SCH ×2 (09:00→20:51)
[2022-09-23] MEDS: MULTIVITAMINS/MINERALS THERAP 1 TAB PO SCH (09:00)
[2022-09-23] MEDS: metFORMIN XR 500MG TAB *GLUCOPHAGE XR PO SCH (17:29)
[2022-09-24] MEDS: LEVOTHYROXINE 75MCG TABLET (0.075MG) PO SCH (06:00)
[2022-09-24] MEDS: ARIPiprazole 10 MG TAB PO SCH (09:00)
[2022-09-24] MEDS: LORazepam 2 MG TAB PO PRN (11:23)
[2022-09-24] MEDS: MULTIVITAMINS/MINERALS THERAP 1 TAB PO SCH (11:31)
[2022-09-24] MEDS: BENZTROPINE 1 MG TAB PO SCH ×2 (11:31→21:00)
[2022-09-24] MEDS: metFORMIN XR 500MG TAB *GLUCOPHAGE XR PO SCH (17:41)
[2022-09-25] MEDS: LEVOTHYROXINE 75MCG TABLET (0.075MG) PO SCH (06:00)
[2022-09-25] MEDS: MULTIVITAMINS/MINERALS THERAP 1 TAB PO SCH (09:00)
[2022-09-25] MEDS: BENZTROPINE 1 MG TAB PO SCH ×2 (09:00→21:00)
[2022-09-25] MEDS: ARIPiprazole 10 MG TAB PO SCH (09:00)
[2022-09-25] MEDS: HALOPERIDOL DECANOATE 100 MG/ML 1ML VIAL IM SCH (12:51)
[2022-09-25] MEDS: metFORMIN XR 500MG TAB *GLUCOPHAGE XR PO SCH (17:02)
[2022-09-26] MEDS: LEVOTHYROXINE 75MCG TABLET (0.075MG) PO SCH ×2 (06:00→11:25)
[2022-09-26] MEDS: MULTIVITAMINS/MINERALS THERAP 1 TAB PO SCH (09:00)
[2022-09-26] MEDS: BENZTROPINE 1 MG TAB PO SCH ×2 (10:52→21:00)
[2022-09-26] MEDS: ARIPiprazole 10 MG TAB PO SCH (10:52)
[2022-09-26] MEDS: LORazepam 2 MG TAB PO PRN ×2 (10:52→17:49)
[2022-09-26] MEDS: metFORMIN XR 500MG TAB *GLUCOPHAGE XR PO SCH (18:00)
[2022-09-26] MEDS ORDERED: HALOPERIDOL 5MG/ML 1ML VIAL IM SCH (21:00)
[2022-09-27] MEDS: LEVOTHYROXINE 75MCG TABLET (0.075MG) PO SCH (05:45)
[2022-09-27] MEDS: MULTIVITAMINS/MINERALS THERAP 1 TAB PO SCH (09:00)
[2022-09-27] MEDS: ARIPiprazole 10 MG TAB PO SCH (09:00)
[2022-09-27] MEDS: BENZTROPINE 1 MG TAB PO SCH ×2 (09:00→21:00)
[2022-09-27] MEDS: metFORMIN XR 500MG TAB *GLUCOPHAGE XR PO SCH (18:00)
[2022-09-27] MEDS: traZODone 50 MG TAB PO PRN (21:18)
[2022-09-28] MEDS: LEVOTHYROXINE 75MCG TABLET (0.075MG) PO SCH (06:00)
[2022-09-28] MEDS: MULTIVITAMINS/MINERALS THERAP 1 TAB PO SCH (09:00)
[2022-09-28] MEDS: BENZTROPINE 1 MG TAB PO SCH ×2 (09:00→20:49)
[2022-09-28] MEDS: ARIPiprazole 10 MG TAB PO SCH (09:30)
[2022-09-28] MEDS: metFORMIN XR 500MG TAB *GLUCOPHAGE XR PO SCH (18:00)
[2022-09-28] MEDS: traZODone 50 MG TAB PO PRN (20:48)
[2022-09-29] MEDS: LORazepam 2 MG TAB PO PRN (00:23)
[2022-09-29] MEDS: LEVOTHYROXINE 75MCG TABLET (0.075MG) PO SCH (06:00)
[2022-09-29] MEDS: BENZTROPINE 1 MG TAB PO SCH ×2 (09:00→21:00)
[2022-09-29] MEDS: MULTIVITAMINS/MINERALS THERAP 1 TAB PO SCH (09:00)
[2022-09-29] MEDS: ARIPiprazole 10 MG TAB PO SCH (09:23)
[2022-09-29] MEDS: MAALOX 30 ML SUSP *UDC PO PRN (13:13)
[2022-09-29] MEDS: metFORMIN XR 500MG TAB *GLUCOPHAGE XR PO SCH (17:10)
[2022-09-30] MEDS: LEVOTHYROXINE 75MCG TABLET (0.075MG) PO SCH ×2 (06:00→10:46)
[2022-09-30] MEDS: BENZTROPINE 1 MG TAB PO SCH ×4 (09:00→21:32)
[2022-09-30] MEDS: MULTIVITAMINS/MINERALS THERAP 1 TAB PO SCH (09:00)
[2022-09-30] MEDS: ARIPiprazole 10 MG TAB PO SCH ×2 (10:47→13:22)
[2022-09-30] MEDS: LORazepam 2 MG TAB PO PRN (11:32)
[2022-09-30] MEDS: metFORMIN XR 500MG TAB *GLUCOPHAGE XR PO SCH (17:54)
[2022-10-01] MEDS: LEVOTHYROXINE 75MCG TABLET (0.075MG) PO SCH (06:00)
[2022-10-01] MEDS: BENZTROPINE 1 MG TAB PO SCH ×3 (09:00→21:35)
[2022-10-01] MEDS: MULTIVITAMINS/MINERALS THERAP 1 TAB PO SCH (09:00)
[2022-10-01] MEDS: ARIPiprazole 10 MG TAB PO SCH ×2 (09:00→14:11)
[2022-10-01] MEDS: LORazepam 2 MG TAB PO PRN (14:04)
[2022-10-01] MEDS: metFORMIN XR 500MG TAB *GLUCOPHAGE XR PO SCH (17:36)
[2022-10-01] MEDS: traZODone 50 MG TAB PO PRN (21:35)
[2022-10-02] MEDS: LEVOTHYROXINE 75MCG TABLET (0.075MG) PO SCH (05:26)
[2022-10-02] MEDS: BENZTROPINE 1 MG TAB PO SCH ×2 (09:00→21:15)
[2022-10-02] MEDS: MULTIVITAMINS/MINERALS THERAP 1 TAB PO SCH (09:00)
[2022-10-02] MEDS: ARIPiprazole 10 MG TAB PO SCH (11:14)
[2022-10-02] MEDS: metFORMIN XR 500MG TAB *GLUCOPHAGE XR PO SCH (17:44)
[2022-10-02] MEDS: traZODone 50 MG TAB PO PRN (21:15)
[2022-10-03] MEDS: LEVOTHYROXINE 75MCG TABLET (0.075MG) PO SCH (06:00)
[2022-10-03] MEDS: BENZTROPINE 1 MG TAB PO SCH ×2 (10:18→20:29)
[2022-10-03] MEDS: ARIPiprazole 10 MG TAB PO SCH (10:18)
[2022-10-03] MEDS: MULTIVITAMINS/MINERALS THERAP 1 TAB PO SCH (10:20)
[2022-10-03] MEDS ORDERED: DIMETHICONE 2% OINTMENT(VANICREAM) 70GM TUBE TOP PRN (13:20)
[2022-10-03] MEDS: metFORMIN XR 500MG TAB *GLUCOPHAGE XR PO SCH (17:00)
[2022-10-03] MEDS: traZODone 50 MG TAB PO PRN (20:29)
[2022-10-03] MEDS: LORazepam 2 MG TAB PO PRN (21:02)
[2022-10-04] MEDS: LEVOTHYROXINE 75MCG TABLET (0.075MG) PO SCH (05:35)
[2022-10-04] MEDS: MULTIVITAMINS/MINERALS THERAP 1 TAB PO SCH (09:00)
[2022-10-04] MEDS: BENZTROPINE 1 MG TAB PO SCH ×2 (11:08→22:22)
[2022-10-04] MEDS: ARIPiprazole 10 MG TAB PO SCH (11:08)
[2022-10-04] MEDS: LORazepam 2 MG TAB PO PRN (11:11)
[2022-10-04] MEDS: metFORMIN XR 500MG TAB *GLUCOPHAGE XR PO SCH (18:00)
[2022-10-05] MEDS: LORazepam 2 MG TAB PO PRN ×2 (02:51→18:13)
[2022-10-05] MEDS: LEVOTHYROXINE 75MCG TABLET (0.075MG) PO SCH (05:45)
[2022-10-05] MEDS: MULTIVITAMINS/MINERALS THERAP 1 TAB PO SCH (09:00)
[2022-10-05] MEDS: ARIPiprazole 10 MG TAB PO SCH (10:40)
[2022-10-05] MEDS: BENZTROPINE 1 MG TAB PO SCH ×2 (10:41→21:00)
[2022-10-05] MEDS: metFORMIN XR 500MG TAB *GLUCOPHAGE XR PO SCH (18:00)
[2022-10-06] MEDS: LORazepam 2 MG TAB PO PRN ×2 (00:33→19:14)
[2022-10-06] MEDS: traZODone 50 MG TAB PO PRN ×2 (00:33→20:50)
[2022-10-06] MEDS: LEVOTHYROXINE 75MCG TABLET (0.075MG) PO SCH (06:00)
[2022-10-06] MEDS: MULTIVITAMINS/MINERALS THERAP 1 TAB PO SCH (09:00)
[2022-10-06] MEDS: ARIPiprazole 10 MG TAB PO SCH (10:32)
[2022-10-06] MEDS: BENZTROPINE 1 MG TAB PO SCH ×2 (10:32→20:50)
[2022-10-06 12:09] VITALS: BP 138/80
[2022-10-06 13:00] LABS: BASO % 0.3 % (0.0-1.0); EOS # 0.2 10^3/uL (0.0-0.5); EOS % 2.8 % (0.0-3.0); HEMOGLOBIN 12.6 g/dl (12.0-15.5); LYMPH # 2.7 10^3/uL (1.5-5.0); MEAN CORPUSCULAR HEMOGLOBIN 24.6 pg (27.0-33.0); MEAN CORPUSCULAR HGB CONC 30.7 g/dl (32.0-36.5); MEAN CORPUSCULAR VOLUME 79.9 fl (80.0-96.0); MONO # 0.4 10^3/uL (0.0-0.8); MONO % 5.6 % (2.0-8.0); NEUTROPHILS # 3.1 10^3/uL (1.5-8.5); PLATELET COUNT, AUTOMATED 301 10^3/uL (150-450); RED BLOOD COUNT 5.13 10^6/uL (4.00-5.40); WHITE BLOOD COUNT 6.4 10^3/uL (4.0-10.0)
[2022-10-06] MEDS ORDERED: ACETAMINOPHEN TAB 650MG DOSE (2X325MG) PO PRN (13:15)
[2022-10-06 13:36] LABS: ALBUMIN 3.6 G/DL (3.2-5.2); ALKALINE PHOSPHATASE 82 U/L (46-116); ALT/SGPT 20 U/L (7.0-40); AST/SGOT 14 U/L (<34); BILIRUBIN,TOTAL 0.3 MG/DL (0.3-1.2); BLOOD UREA NITROGEN 7 MG/DL (9-23); CALCIUM LEVEL 8.7 MG/DL (8.5-10.1); CARBON DIOXIDE LEVEL 26 MMOL/L (20-31); CHLORIDE LEVEL 105 MMOL/L (98-107); GLOMERULAR FILTRATION RATE > 60.0 (>60); GLUCOSE, FASTING 84 MG/DL (60-100); POTASSIUM SERUM 4.3 MMOL/L (3.5-5.1); SODIUM LEVEL 138 MMOL/L (136-145); TOTAL PROTEIN 6.3 G/DL (5.7-8.2)
[2022-10-06] MEDS: metFORMIN XR 500MG TAB *GLUCOPHAGE XR PO SCH (17:05)
[2022-10-06] MEDS: MAALOX 30 ML SUSP *UDC PO PRN (19:09)
[2022-10-06] MEDS: NICOTINE POLACRILEX 2 MG GUM PO PRN (20:50)
[2022-10-07] MEDS: LEVOTHYROXINE 75MCG TABLET (0.075MG) PO SCH (05:43)
[2022-10-07] MEDS: BENZTROPINE 1 MG TAB PO SCH ×2 (09:00→19:44)
[2022-10-07] MEDS: ARIPiprazole 10 MG TAB PO SCH (09:00)
[2022-10-07] MEDS: MULTIVITAMINS/MINERALS THERAP 1 TAB PO SCH (09:00)
[2022-10-07] MEDS: HALOPERIDOL 5MG/ML 1ML VIAL IM PRN (11:09)
[2022-10-07] MEDS: metFORMIN XR 500MG TAB *GLUCOPHAGE XR PO SCH (17:31)
[2022-10-07] MEDS: traZODone 50 MG TAB PO PRN (19:41)
[2022-10-07] MEDS: LORazepam 2 MG TAB PO PRN (19:42)
[2022-10-07] MEDS: NICOTINE POLACRILEX 2 MG GUM PO PRN (19:42)
[2022-10-07] MEDS: MAALOX 30 ML SUSP *UDC PO PRN (20:03)
[2022-10-08] MEDS: LEVOTHYROXINE 75MCG TABLET (0.075MG) PO SCH (06:00)
[2022-10-08] MEDS: MULTIVITAMINS/MINERALS THERAP 1 TAB PO SCH (09:00)
[2022-10-08] MEDS: BENZTROPINE 1 MG TAB PO SCH ×2 (09:29→22:10)
[2022-10-08] MEDS: ARIPiprazole 10 MG TAB PO SCH (09:29)
[2022-10-08] MEDS: LORazepam 2 MG TAB PO PRN ×2 (09:42→23:54)
[2022-10-08] MEDS: MAALOX 30 ML SUSP *UDC PO PRN (16:14)
[2022-10-08] MEDS: metFORMIN XR 500MG TAB *GLUCOPHAGE XR PO SCH (17:25)
[2022-10-08] MEDS: HALOPERIDOL 5MG/ML 1ML VIAL IM PRN (22:10)
[2022-10-09] MEDS: LEVOTHYROXINE 75MCG TABLET (0.075MG) PO SCH (06:00)
[2022-10-09] MEDS: BENZTROPINE 1 MG TAB PO SCH ×2 (09:00→21:00)
[2022-10-09] MEDS: MULTIVITAMINS/MINERALS THERAP 1 TAB PO SCH (09:00)
[2022-10-09] MEDS: ARIPiprazole 10 MG TAB PO SCH (09:00)
[2022-10-09] MEDS: HALOPERIDOL 5MG/ML 1ML VIAL IM PRN ×2 (09:56→22:33)
[2022-10-09] MEDS: metFORMIN XR 500MG TAB *GLUCOPHAGE XR PO SCH (17:23)
[2022-10-10] MEDS: LORazepam 2 MG TAB PO PRN ×3 (03:31→19:33)
[2022-10-10] MEDS: LEVOTHYROXINE 75MCG TABLET (0.075MG) PO SCH (06:00)
[2022-10-10] MEDS: BENZTROPINE 1 MG TAB PO SCH ×2 (09:00→19:33)
[2022-10-10] MEDS: MULTIVITAMINS/MINERALS THERAP 1 TAB PO SCH (09:00)
[2022-10-10] MEDS: fluPHENAZine 5MG TABLET PO SCH ×2 (10:51→19:28)
[2022-10-10] MEDS: ARIPiprazole 10 MG TAB PO SCH (10:52)
[2022-10-10] MEDS: metFORMIN XR 500MG TAB *GLUCOPHAGE XR PO SCH (17:52)
[2022-10-10] MEDS: traZODone 50 MG TAB PO PRN (19:28)
[2022-10-11] MEDS: MAALOX 30 ML SUSP *UDC PO PRN ×2 (04:54→17:56)
[2022-10-11] MEDS: LEVOTHYROXINE 75MCG TABLET (0.075MG) PO SCH (05:14)
[2022-10-11] MEDS: MULTIVITAMINS/MINERALS THERAP 1 TAB PO SCH (09:00)
[2022-10-11] MEDS: fluPHENAZine 5MG TABLET PO SCH ×2 (09:00→21:00)
[2022-10-11] MEDS: ARIPiprazole 10 MG TAB PO SCH (09:00)
[2022-10-11] MEDS: BENZTROPINE 1 MG TAB PO SCH ×2 (09:00→21:00)
[2022-10-11] MEDS ORDERED: chlorproMAZINE INJ 50MG/2ML AMP IM ONE (10:00)
[2022-10-11] MEDS: HALOPERIDOL 5MG/ML 1ML VIAL IM PRN (10:24)
[2022-10-11] MEDS ORDERED: chlorproMAZINE INJ 50MG/2ML AMP IM STA (17:30)
[2022-10-11] MEDS: metFORMIN XR 500MG TAB *GLUCOPHAGE XR PO SCH (17:55)
[2022-10-11] MEDS: traZODone 50 MG TAB PO PRN (20:32)
[2022-10-12] MEDS: LEVOTHYROXINE 75MCG TABLET (0.075MG) PO SCH (06:00)
[2022-10-12] MEDS: fluPHENAZine 5MG TABLET PO SCH ×2 (09:00→20:26)
[2022-10-12] MEDS: BENZTROPINE 1 MG TAB PO SCH ×2 (09:00→20:28)
[2022-10-12] MEDS: ARIPiprazole 10 MG TAB PO SCH (09:00)
[2022-10-12] MEDS: MULTIVITAMINS/MINERALS THERAP 1 TAB PO SCH (09:00)
[2022-10-12] MEDS: HALOPERIDOL 5MG/ML 1ML VIAL IM PRN (09:31)
[2022-10-12] MEDS: MAALOX 30 ML SUSP *UDC PO PRN (10:02)
[2022-10-12] MEDS: metFORMIN XR 500MG TAB *GLUCOPHAGE XR PO SCH (17:26)
[2022-10-12] MEDS: traZODone 50 MG TAB PO PRN (20:26)
[2022-10-13] MEDS: LEVOTHYROXINE 75MCG TABLET (0.075MG) PO SCH (06:00)
[2022-10-13] MEDS: BENZTROPINE 1 MG TAB PO SCH ×2 (09:00→21:37)
[2022-10-13] MEDS: fluPHENAZine 5MG TABLET PO SCH ×2 (09:00→21:00)
[2022-10-13] MEDS: MULTIVITAMINS/MINERALS THERAP 1 TAB PO SCH (09:00)
[2022-10-13] MEDS: ARIPiprazole 10 MG TAB PO SCH ×2 (09:00→10:02)
[2022-10-13] MEDS: HALOPERIDOL 5MG/ML 1ML VIAL IM PRN ×3 (09:50→22:45)
[2022-10-13] MEDS: metFORMIN XR 500MG TAB *GLUCOPHAGE XR PO SCH (17:01)
[2022-10-14] MEDS: LEVOTHYROXINE 75MCG TABLET (0.075MG) PO SCH (05:26)
[2022-10-14] MEDS: MULTIVITAMINS/MINERALS THERAP 1 TAB PO SCH (09:00)
[2022-10-14] MEDS: fluPHENAZine 5MG TABLET PO SCH ×2 (09:57→21:10)
[2022-10-14] MEDS: BENZTROPINE 1 MG TAB PO SCH ×2 (09:57→21:00)
[2022-10-14] MEDS: ARIPiprazole 10 MG TAB PO SCH (09:57)
[2022-10-14] MEDS: metFORMIN XR 500MG TAB *GLUCOPHAGE XR PO SCH (18:00)
[2022-10-14] MEDS: NICOTINE POLACRILEX 2 MG GUM PO PRN (21:12)
[2022-10-15] MEDS: LEVOTHYROXINE 75MCG TABLET (0.075MG) PO SCH (05:08)
[2022-10-15] MEDS: MULTIVITAMINS/MINERALS THERAP 1 TAB PO SCH (09:00)
[2022-10-15] MEDS: ARIPiprazole 10 MG TAB PO SCH (13:02)
[2022-10-15] MEDS: fluPHENAZine 5MG TABLET PO SCH ×2 (13:03→22:02)
[2022-10-15] MEDS: BENZTROPINE 1 MG TAB PO SCH ×2 (13:03→22:02)
[2022-10-15] MEDS: NICOTINE POLACRILEX 2 MG GUM PO PRN (13:44)
[2022-10-15] MEDS: diphenhydrAMINE 12.5MG/5ML ELIXIR UDC PO PRN ×2 (17:01→22:28)
[2022-10-15] MEDS: metFORMIN XR 500MG TAB *GLUCOPHAGE XR PO SCH (18:00)
[2022-10-15] MEDS ORDERED: LORazepam 2 MG TAB PO STA (23:43)
[2022-10-16] MEDS: LEVOTHYROXINE 75MCG TABLET (0.075MG) PO SCH (05:25)
[2022-10-16] MEDS ORDERED: fluPHENAZine DECAN 25MG/ML 5ML VIAL IM SCH (09:00)
[2022-10-16] MEDS: **PENDING PPD ENTRY XX SCH (09:00)
[2022-10-16] MEDS: MULTIVITAMINS/MINERALS THERAP 1 TAB PO SCH (09:00)
[2022-10-16] MEDS ORDERED: TUBERCULIN PPD 5 UNITS/0.1 ML ID ONE (10:00)
[2022-10-16] MEDS: fluPHENAZine 5MG TABLET PO SCH ×2 (12:22→21:25)
[2022-10-16] MEDS: ARIPiprazole 10 MG TAB PO SCH (12:22)
[2022-10-16] MEDS: BENZTROPINE 1 MG TAB PO SCH ×2 (12:22→21:00)
[2022-10-16 17:30] VITALS: BP 138/98
[2022-10-16] MEDS: metFORMIN XR 500MG TAB *GLUCOPHAGE XR PO SCH (18:00)
[2022-10-17] MEDS: traZODone 50 MG TAB PO PRN (00:37)
[2022-10-17] MEDS: LEVOTHYROXINE 75MCG TABLET (0.075MG) PO SCH (05:59)
[2022-10-17] MEDS: ARIPiprazole 10 MG TAB PO SCH (08:05)
[2022-10-17] MEDS: fluPHENAZine 5MG TABLET PO SCH ×2 (08:05→20:11)
[2022-10-17] MEDS: MULTIVITAMINS/MINERALS THERAP 1 TAB PO SCH (08:07)
[2022-10-17] MEDS: BENZTROPINE 1 MG TAB PO SCH ×2 (08:07→20:11)
[2022-10-17] MEDS: **PENDING PPD ENTRY XX SCH (08:07)
[2022-10-17] MEDS ORDERED: PPD DOCUMENTATION ENTRY MISC XX SCH (10:00)
[2022-10-17] MEDS: metFORMIN XR 500MG TAB *GLUCOPHAGE XR PO SCH (17:00)
[2022-10-17] MEDS ORDERED: diphenhydrAMINE 50MG/ML VIAL IM STA ×2 (17:01→23:15)
[2022-10-17] MEDS ORDERED: LORazepam 2 MG/ML 1ML VIAL IM STA ×2 (17:01→23:15)
[2022-10-17] MEDS ORDERED: HALOPERIDOL 5MG/ML 1ML VIAL IM STA ×2 (17:01→23:15)
[2022-10-18] MEDS: LEVOTHYROXINE 75MCG TABLET (0.075MG) PO SCH (06:00)
[2022-10-18] MEDS: MULTIVITAMINS/MINERALS THERAP 1 TAB PO SCH (09:00)
[2022-10-18] MEDS: **PENDING PPD ENTRY XX SCH (09:00)
[2022-10-18 09:38] VITALS: BP 138/98
[2022-10-18] MEDS: ARIPiprazole 10 MG TAB PO SCH (12:08)
[2022-10-18] MEDS: fluPHENAZine 5MG TABLET PO SCH ×2 (12:08→22:56)
[2022-10-18] MEDS: BENZTROPINE 1 MG TAB PO SCH ×2 (12:08→22:55)
[2022-10-18] MEDS ORDERED: LORazepam 2 MG TAB PO STA (13:51)
[2022-10-18] MEDS: NICOTINE POLACRILEX 2 MG GUM PO PRN (14:25)
[2022-10-18] MEDS: metFORMIN XR 500MG TAB *GLUCOPHAGE XR PO SCH (17:45)
[2022-10-18] MEDS ORDERED: chlorproMAZINE INJ 50MG/2ML AMP IM ONE (18:50)
[2022-10-19] MEDS: LEVOTHYROXINE 75MCG TABLET (0.075MG) PO SCH (05:35)
[2022-10-19] MEDS: ARIPiprazole 10 MG TAB PO SCH (08:48)
[2022-10-19] MEDS: **PENDING PPD ENTRY XX SCH (09:00)
[2022-10-19] MEDS: MULTIVITAMINS/MINERALS THERAP 1 TAB PO SCH (09:00)
[2022-10-19] MEDS: fluPHENAZine 5MG TABLET PO SCH ×2 (09:24→20:17)
[2022-10-19] MEDS: BENZTROPINE 1 MG TAB PO SCH ×2 (09:24→20:17)
[2022-10-19] MEDS: LORazepam 2 MG TAB PO PRN ×2 (14:00→20:40)
[2022-10-19] MEDS: metFORMIN XR 500MG TAB *GLUCOPHAGE XR PO SCH (17:28)
[2022-10-19] MEDS: NICOTINE POLACRILEX 2 MG GUM PO PRN (20:18)
[2022-10-19] MEDS: traZODone 50 MG TAB PO PRN (20:19)
[2022-10-20] MEDS: LEVOTHYROXINE 75MCG TABLET (0.075MG) PO SCH (05:33)
[2022-10-20] MEDS: ARIPiprazole 10 MG TAB PO SCH ×2 (09:00→09:54)
[2022-10-20] MEDS: BENZTROPINE 1 MG TAB PO SCH ×3 (09:00→21:00)
[2022-10-20] MEDS: MULTIVITAMINS/MINERALS THERAP 1 TAB PO SCH ×2 (09:00→09:54)
[2022-10-20] MEDS: **PENDING PPD ENTRY XX SCH (09:00)
[2022-10-20] MEDS: fluPHENAZine 5MG TABLET PO SCH ×3 (09:00→21:00)
[2022-10-20] MEDS: LORazepam 2 MG TAB PO PRN ×2 (10:25→15:24)
[2022-10-20] MEDS: HALOPERIDOL 5MG/ML 1ML VIAL IM PRN ×2 (10:25→21:05)
[2022-10-20] MEDS: metFORMIN XR 500MG TAB *GLUCOPHAGE XR PO SCH (17:27)
[2022-10-20] MEDS: diphenhydrAMINE 12.5MG/5ML ELIXIR UDC PO PRN (22:21)
[2022-10-21] MEDS: LEVOTHYROXINE 75MCG TABLET (0.075MG) PO SCH (05:48)
[2022-10-21] MEDS: fluPHENAZine 5MG TABLET PO SCH ×3 (09:00→21:00)
[2022-10-21] MEDS: **PENDING PPD ENTRY XX SCH (09:00)
[2022-10-21] MEDS: BENZTROPINE 1 MG TAB PO SCH ×2 (09:00→21:00)
[2022-10-21] MEDS: MULTIVITAMINS/MINERALS THERAP 1 TAB PO SCH (09:00)
[2022-10-21] MEDS: ARIPiprazole 10 MG TAB PO SCH (09:00)
[2022-10-21] MEDS: HALOPERIDOL 5MG/ML 1ML VIAL IM PRN ×2 (10:20→21:42)
[2022-10-21] MEDS: metFORMIN XR 500MG TAB *GLUCOPHAGE XR PO SCH (17:22)
[2022-10-21] MEDS: LORazepam 2 MG TAB PO PRN (19:45)
[2022-10-22] MEDS: LEVOTHYROXINE 75MCG TABLET (0.075MG) PO SCH (06:00)
[2022-10-22] MEDS: BENZTROPINE 1 MG TAB PO SCH ×2 (09:00→21:00)
[2022-10-22] MEDS: **PENDING PPD ENTRY XX SCH (09:00)
[2022-10-22] MEDS: MULTIVITAMINS/MINERALS THERAP 1 TAB PO SCH (09:00)
[2022-10-22] MEDS: ARIPiprazole 10 MG TAB PO SCH (09:27)
[2022-10-22] MEDS: fluPHENAZine 5MG TABLET PO SCH ×2 (09:27→21:41)
[2022-10-22] MEDS: LORazepam 2 MG TAB PO PRN (09:30)
[2022-10-22] MEDS: diphenhydrAMINE 12.5MG/5ML ELIXIR UDC PO PRN (13:34)
[2022-10-22] MEDS: NICOTINE POLACRILEX 2 MG GUM PO PRN ×2 (15:29→23:34)
[2022-10-22] MEDS: metFORMIN XR 500MG TAB *GLUCOPHAGE XR PO SCH (17:10)
[2022-10-22] MEDS: HALOPERIDOL 5MG/ML 1ML VIAL IM PRN (22:14)
[2022-10-23] MEDS: LEVOTHYROXINE 75MCG TABLET (0.075MG) PO SCH (06:00)
[2022-10-23] MEDS: fluPHENAZine 5MG TABLET PO SCH ×2 (09:00→22:32)
[2022-10-23] MEDS: **PENDING PPD ENTRY XX SCH (09:00)
[2022-10-23] MEDS: BENZTROPINE 1 MG TAB PO SCH (09:00)
[2022-10-23] MEDS: MULTIVITAMINS/MINERALS THERAP 1 TAB PO SCH (09:00)
[2022-10-23] MEDS: DIVALPROEX 250MG *ER* TAB PO SCH (09:00)
[2022-10-23] MEDS: ARIPiprazole 10 MG TAB PO SCH (09:00)
[2022-10-23] MEDS: HALOPERIDOL 5MG/ML 1ML VIAL IM PRN ×2 (09:55→23:02)
[2022-10-23] MEDS: LORazepam 2 MG TAB PO PRN ×2 (12:06→18:15)
[2022-10-23] MEDS: metFORMIN XR 500MG TAB *GLUCOPHAGE XR PO SCH (18:00)
[2022-10-23] MEDS: BENZTROPINE 2 MG TAB PO SCH (22:32)
[2022-10-24] MEDS ORDERED: diphenhydrAMINE 50MG/ML VIAL IM STA (00:11)
[2022-10-24] MEDS ORDERED: HALOPERIDOL 5MG/ML 1ML VIAL IM STA ×2 (00:11→00:15)
[2022-10-24] MEDS ORDERED: LORazepam 2 MG/ML 1ML VIAL IM STA (00:11)
[2022-10-24 01:00] VITALS: BP 155/98
[2022-10-24 01:30] VITALS: BP 167/86
[2022-10-24] MEDS: LEVOTHYROXINE 75MCG TABLET (0.075MG) PO SCH ×2 (05:44→05:48)
[2022-10-24] MEDS: fluPHENAZine 5MG TABLET PO SCH ×2 (09:00→20:50)
[2022-10-24] MEDS: ARIPiprazole 10 MG TAB PO SCH (09:00)
[2022-10-24] MEDS: DIVALPROEX 250MG *ER* TAB PO SCH (09:00)
[2022-10-24] MEDS: BENZTROPINE 2 MG TAB PO SCH ×2 (09:00→20:50)
[2022-10-24] MEDS: MULTIVITAMINS/MINERALS THERAP 1 TAB PO SCH (09:00)
[2022-10-24] MEDS: **PENDING PPD ENTRY XX SCH (09:00)
[2022-10-24] MEDS: HALOPERIDOL 5MG/ML 1ML VIAL IM PRN ×2 (09:40→20:44)
[2022-10-24] MEDS: LORazepam 2 MG TAB PO PRN ×2 (12:17→20:45)
[2022-10-24] MEDS: MAALOX 30 ML SUSP *UDC PO PRN ×2 (14:10→21:47)
[2022-10-24] MEDS: NICOTINE POLACRILEX 2 MG GUM PO PRN (16:19)
[2022-10-24] MEDS: metFORMIN XR 500MG TAB *GLUCOPHAGE XR PO SCH (17:43)
[2022-10-24] MEDS: traZODone 50 MG TAB PO PRN (22:45)
[2022-10-25] MEDS: LEVOTHYROXINE 75MCG TABLET (0.075MG) PO SCH (05:12)
[2022-10-25] MEDS: ARIPiprazole 10 MG TAB PO SCH (09:00)
[2022-10-25] MEDS: MULTIVITAMINS/MINERALS THERAP 1 TAB PO SCH (09:00)
[2022-10-25] MEDS: **PENDING PPD ENTRY XX SCH (09:00)
[2022-10-25] MEDS: DIVALPROEX 250MG *ER* TAB PO SCH (09:00)
[2022-10-25] MEDS: BENZTROPINE 2 MG TAB PO SCH ×2 (09:00→21:00)
[2022-10-25] MEDS: fluPHENAZine 5MG TABLET PO SCH ×2 (09:00→21:00)
[2022-10-25] MEDS: HALOPERIDOL 5MG/ML 1ML VIAL IM PRN ×2 (09:33→22:06)
[2022-10-25] MEDS: HALOPERIDOL DECANOATE 100 MG/ML 1ML VIAL IM SCH (09:34)
[2022-10-25] MEDS: metFORMIN XR 500MG TAB *GLUCOPHAGE XR PO SCH (17:18)
[2022-10-25] MEDS: LORazepam 2 MG TAB PO PRN (17:55)
[2022-10-25 18:26] VITALS: BP 147/89
[2022-10-26] MEDS: LORazepam 2 MG TAB PO PRN ×3 (00:29→18:45)
[2022-10-26] MEDS: LEVOTHYROXINE 75MCG TABLET (0.075MG) PO SCH (06:00)
[2022-10-26] MEDS: BENZTROPINE 2 MG TAB PO SCH ×2 (09:00→21:00)
[2022-10-26] MEDS: **PENDING PPD ENTRY XX SCH (09:00)
[2022-10-26] MEDS: DIVALPROEX 250MG *ER* TAB PO SCH (09:00)
[2022-10-26] MEDS: ARIPiprazole 10 MG TAB PO SCH (09:00)
[2022-10-26] MEDS: fluPHENAZine 5MG TABLET PO SCH ×2 (09:00→21:00)
[2022-10-26] MEDS: MULTIVITAMINS/MINERALS THERAP 1 TAB PO SCH (09:00)
[2022-10-26] MEDS: HALOPERIDOL 5MG/ML 1ML VIAL IM PRN ×2 (09:40→21:49)
[2022-10-26] MEDS: metFORMIN XR 500MG TAB *GLUCOPHAGE XR PO SCH (17:11)
[2022-10-27] MEDS: LEVOTHYROXINE 75MCG TABLET (0.075MG) PO SCH (06:00)
[2022-10-27] MEDS: fluPHENAZine 5MG TABLET PO SCH ×2 (09:00→10:06)
[2022-10-27] MEDS: LORazepam 2 MG TAB PO PRN ×2 (09:57→21:39)
[2022-10-27] MEDS: ARIPiprazole 10 MG TAB PO SCH (10:06)
[2022-10-27] MEDS: BENZTROPINE 2 MG TAB PO SCH ×2 (10:08→21:30)
[2022-10-27] MEDS: DIVALPROEX 250MG *ER* TAB PO SCH (10:08)
[2022-10-27] MEDS: MULTIVITAMINS/MINERALS THERAP 1 TAB PO SCH (10:09)
[2022-10-27] MEDS: **PENDING PPD ENTRY XX SCH (10:09)
[2022-10-27] MEDS: metFORMIN XR 500MG TAB *GLUCOPHAGE XR PO SCH (18:00)
[2022-10-28] MEDS: LEVOTHYROXINE 75MCG TABLET (0.075MG) PO SCH (05:43)
[2022-10-28] MEDS ORDERED: HALOPERIDOL DECANOATE 100 MG/ML 1ML VIAL IM ONE (09:35)
[2022-10-28] MEDS: MULTIVITAMINS/MINERALS THERAP 1 TAB PO SCH (10:12)
[2022-10-28] MEDS: **PENDING PPD ENTRY XX SCH (10:13)
[2022-10-28] MEDS: MAALOX 30 ML SUSP *UDC PO PRN (11:27)
[2022-10-28] MEDS ORDERED: LORazepam 2 MG/ML 1ML VIAL IM ONE (11:30)
[2022-10-28] MEDS: ARIPiprazole 10 MG TAB PO SCH (11:46)
[2022-10-28] MEDS: BENZTROPINE 2 MG TAB PO SCH ×2 (11:46→19:39)
[2022-10-28] MEDS: fluPHENAZine 5MG TABLET PO SCH ×2 (11:47→19:39)
[2022-10-28] MEDS: DIVALPROEX 250MG *ER* TAB PO SCH (11:47)
[2022-10-28] MEDS: HALOPERIDOL 5MG/ML 1ML VIAL IM PRN (12:20)
[2022-10-28] MEDS: metFORMIN XR 500MG TAB *GLUCOPHAGE XR PO SCH (18:00)
[2022-10-28] MEDS: LORazepam 2 MG TAB PO PRN (19:40)
[2022-10-28] MEDS: NICOTINE POLACRILEX 2 MG GUM PO PRN (19:50)
[2022-10-29] MEDS: MAALOX 30 ML SUSP *UDC PO PRN ×4 (00:12→20:55)
[2022-10-29] MEDS: LEVOTHYROXINE 75MCG TABLET (0.075MG) PO SCH (05:27)
[2022-10-29] MEDS: ARIPiprazole 10 MG TAB PO SCH (09:00)
[2022-10-29] MEDS: DIVALPROEX 250MG *ER* TAB PO SCH (09:00)
[2022-10-29] MEDS: fluPHENAZine 5MG TABLET PO SCH ×2 (09:00→20:55)
[2022-10-29] MEDS: BENZTROPINE 2 MG TAB PO SCH ×2 (09:00→20:55)
[2022-10-29] MEDS: **PENDING PPD ENTRY XX SCH (09:00)
[2022-10-29] MEDS: MULTIVITAMINS/MINERALS THERAP 1 TAB PO SCH (11:03)
[2022-10-29] MEDS: LORazepam 2 MG TAB PO PRN ×2 (11:13→20:56)
[2022-10-29] MEDS: HALOPERIDOL 5MG/ML 1ML VIAL IM PRN (11:19)
[2022-10-29] MEDS: metFORMIN XR 500MG TAB *GLUCOPHAGE XR PO SCH (18:00)
[2022-10-29] MEDS: NICOTINE POLACRILEX 2 MG GUM PO PRN (22:33)
[2022-10-30] MEDS: LEVOTHYROXINE 75MCG TABLET (0.075MG) PO SCH (05:04)
[2022-10-30] MEDS: BENZTROPINE 2 MG TAB PO SCH ×2 (09:00→21:00)
[2022-10-30] MEDS: MULTIVITAMINS/MINERALS THERAP 1 TAB PO SCH (09:00)
[2022-10-30] MEDS: **PENDING PPD ENTRY XX SCH (09:00)
[2022-10-30] MEDS: DIVALPROEX 250MG *ER* TAB PO SCH (09:00)
[2022-10-30] MEDS: MAALOX 30 ML SUSP *UDC PO PRN (09:33)
[2022-10-30] MEDS: LORazepam 2 MG TAB PO PRN ×2 (10:12→16:42)
[2022-10-30] MEDS: ARIPiprazole 10 MG TAB PO SCH (10:12)
[2022-10-30] MEDS: fluPHENAZine 5MG TABLET PO SCH ×2 (10:13→22:29)
[2022-10-30] MEDS: metFORMIN XR 500MG TAB *GLUCOPHAGE XR PO SCH (18:00)
[2022-10-31] MEDS: LEVOTHYROXINE 75MCG TABLET (0.075MG) PO SCH (06:00)
[2022-10-31] MEDS: DIVALPROEX 250MG *ER* TAB PO SCH (09:00)
[2022-10-31] MEDS: fluPHENAZine 5MG TABLET PO SCH ×2 (09:00→20:25)
[2022-10-31] MEDS: MULTIVITAMINS/MINERALS THERAP 1 TAB PO SCH (09:00)
[2022-10-31] MEDS: **PENDING PPD ENTRY XX SCH (09:00)
[2022-10-31] MEDS: ARIPiprazole 10 MG TAB PO SCH (09:34)
[2022-10-31] MEDS: BENZTROPINE 2 MG TAB PO SCH ×2 (09:35→20:25)
[2022-10-31] MEDS: LORazepam 2 MG TAB PO PRN (15:21)
[2022-10-31] MEDS: metFORMIN XR 500MG TAB *GLUCOPHAGE XR PO SCH (18:00)
[2022-10-31] MEDS ORDERED: chlorproMAZINE INJ 50MG/2ML AMP IM STA (19:57)
[2022-10-31] MEDS: HALOPERIDOL 5MG/ML 1ML VIAL IM PRN (20:25)
[2022-11-01] MEDS: LEVOTHYROXINE 75MCG TABLET (0.075MG) PO SCH (05:47)
[2022-11-01] MEDS: ARIPiprazole 10 MG TAB PO SCH (09:00)
[2022-11-01] MEDS: MULTIVITAMINS/MINERALS THERAP 1 TAB PO SCH (09:00)
[2022-11-01] MEDS: BENZTROPINE 2 MG TAB PO SCH ×2 (09:00→21:00)
[2022-11-01] MEDS: DIVALPROEX 250MG *ER* TAB PO SCH (09:00)
[2022-11-01] MEDS: fluPHENAZine 5MG TABLET PO SCH ×2 (09:00→21:00)
[2022-11-01] MEDS: **PENDING PPD ENTRY XX SCH (09:00)
[2022-11-01] MEDS: LORazepam 2 MG TAB PO PRN (09:34)
[2022-11-01] MEDS ORDERED: LORazepam 1 MG TAB PO ONE (11:00)
[2022-11-01] MEDS: HALOPERIDOL 5MG/ML 1ML VIAL IM PRN ×2 (14:28→22:15)
[2022-11-01] MEDS: metFORMIN XR 500MG TAB *GLUCOPHAGE XR PO SCH (18:00)
[2022-11-02] MEDS: LEVOTHYROXINE 75MCG TABLET (0.075MG) PO SCH (05:21)
[2022-11-02] MEDS: BENZTROPINE 2 MG TAB PO SCH ×2 (09:00→21:00)
[2022-11-02] MEDS: MULTIVITAMINS/MINERALS THERAP 1 TAB PO SCH (09:00)
[2022-11-02] MEDS: ARIPiprazole 10 MG TAB PO SCH (09:00)
[2022-11-02] MEDS: DIVALPROEX 250MG *ER* TAB PO SCH (09:00)
[2022-11-02] MEDS: **PENDING PPD ENTRY XX SCH (09:00)
[2022-11-02] MEDS: fluPHENAZine 5MG TABLET PO SCH ×2 (09:00→21:00)
[2022-11-02] MEDS ORDERED: chlorproMAZINE INJ 50MG/2ML AMP IM STA (11:45)
[2022-11-02] MEDS: LORazepam 2 MG TAB PO PRN (11:52)
[2022-11-02] MEDS: HALOPERIDOL 5MG/ML 1ML VIAL IM PRN (12:46)
[2022-11-02] MEDS: metFORMIN XR 500MG TAB *GLUCOPHAGE XR PO SCH (18:00)
[2022-11-02] MEDS ORDERED: diphenhydrAMINE 50MG/ML VIAL IM STA (21:31)
[2022-11-02] MEDS ORDERED: HALOPERIDOL 5MG/ML 1ML VIAL IM STA (21:31)
[2022-11-02] MEDS ORDERED: LORazepam 2 MG/ML 1ML VIAL IM STA (21:31)
[2022-11-02 22:00] VITALS: BP 130/74
[2022-11-02 22:30] VITALS: BP 142/88
[2022-11-02 22:45] VITALS: BP 135/86
[2022-11-02 23:00] VITALS: BP 143/89
[2022-11-03] MEDS: LEVOTHYROXINE 75MCG TABLET (0.075MG) PO SCH (05:21)
[2022-11-03] MEDS: **PENDING PPD ENTRY XX SCH (09:00)
[2022-11-03] MEDS: DIVALPROEX 250MG *ER* TAB PO SCH (09:00)
[2022-11-03] MEDS: ARIPiprazole 10 MG TAB PO SCH (09:00)
[2022-11-03] MEDS: fluPHENAZine 5MG TABLET PO SCH ×2 (09:00→22:17)
[2022-11-03] MEDS: MULTIVITAMINS/MINERALS THERAP 1 TAB PO SCH (09:00)
[2022-11-03] MEDS: LORazepam 2 MG TAB PO PRN (09:25)
[2022-11-03] MEDS: BENZTROPINE 2 MG TAB PO SCH ×2 (10:13→21:00)
[2022-11-03] MEDS ORDERED: chlorproMAZINE INJ 50MG/2ML AMP IM STA (10:46)
[2022-11-03] MEDS: HALOPERIDOL 5MG/ML 1ML VIAL IM PRN (11:18)
[2022-11-03] MEDS: NICOTINE POLACRILEX 2 MG GUM PO PRN (15:36)
[2022-11-03] MEDS: metFORMIN XR 500MG TAB *GLUCOPHAGE XR PO SCH (18:00)
[2022-11-04] MEDS: LEVOTHYROXINE 75MCG TABLET (0.075MG) PO SCH (05:55)
[2022-11-04] MEDS: **PENDING PPD ENTRY XX SCH (09:00)
[2022-11-04] MEDS: BENZTROPINE 2 MG TAB PO SCH ×2 (10:47→20:22)
[2022-11-04] MEDS: MULTIVITAMINS/MINERALS THERAP 1 TAB PO SCH (10:53)
[2022-11-04] MEDS: ARIPiprazole 10 MG TAB PO SCH (10:54)
[2022-11-04] MEDS: DIVALPROEX 250MG *ER* TAB PO SCH (10:54)
[2022-11-04] MEDS: fluPHENAZine 5MG TABLET PO SCH ×2 (10:54→20:22)
[2022-11-04] MEDS: HALOPERIDOL 5MG/ML 1ML VIAL IM PRN ×2 (10:57→19:50)
[2022-11-04] MEDS: metFORMIN XR 500MG TAB *GLUCOPHAGE XR PO SCH (17:03)
[2022-11-04] MEDS ORDERED: chlorproMAZINE INJ 50MG/2ML AMP IM ONE (19:40)
[2022-11-05] MEDS: LEVOTHYROXINE 75MCG TABLET (0.075MG) PO SCH (05:42)
[2022-11-05] MEDS: BENZTROPINE 2 MG TAB PO SCH ×2 (09:00→21:00)
[2022-11-05] MEDS: MULTIVITAMINS/MINERALS THERAP 1 TAB PO SCH (09:00)
[2022-11-05] MEDS: ARIPiprazole 10 MG TAB PO SCH (09:00)
[2022-11-05] MEDS: **PENDING PPD ENTRY XX SCH (09:00)
[2022-11-05] MEDS: fluPHENAZine 5MG TABLET PO SCH (09:00)
[2022-11-05] MEDS: DIVALPROEX 250MG *ER* TAB PO SCH (09:00)
[2022-11-05] MEDS: metFORMIN XR 500MG TAB *GLUCOPHAGE XR PO SCH (17:15)
[2022-11-05] MEDS: MAALOX 30 ML SUSP *UDC PO PRN (19:32)
[2022-11-06] MEDS: LEVOTHYROXINE 75MCG TABLET (0.075MG) PO SCH (05:07)
[2022-11-06] MEDS: **PENDING PPD ENTRY XX SCH (09:00)
[2022-11-06] MEDS: BENZTROPINE 2 MG TAB PO SCH ×2 (09:00→21:00)
[2022-11-06] MEDS: MULTIVITAMINS/MINERALS THERAP 1 TAB PO SCH (09:00)
[2022-11-06] MEDS: metFORMIN XR 500MG TAB *GLUCOPHAGE XR PO SCH (17:18)
[2022-11-06] MEDS: LORazepam 2 MG TAB PO PRN (23:01)
[2022-11-07] MEDS: LEVOTHYROXINE 75MCG TABLET (0.075MG) PO SCH (06:00)
[2022-11-07] MEDS: BENZTROPINE 2 MG TAB PO SCH ×2 (09:00→21:00)
[2022-11-07] MEDS: MULTIVITAMINS/MINERALS THERAP 1 TAB PO SCH (09:00)
[2022-11-07] MEDS: **PENDING PPD ENTRY XX SCH (09:00)
[2022-11-07] MEDS: metFORMIN XR 500MG TAB *GLUCOPHAGE XR PO SCH (18:00)
[2022-11-08] MEDS: LEVOTHYROXINE 75MCG TABLET (0.075MG) PO SCH (05:33)
[2022-11-08] MEDS: **PENDING PPD ENTRY XX SCH (09:00)
[2022-11-08] MEDS: BENZTROPINE 2 MG TAB PO SCH ×2 (09:00→20:47)
[2022-11-08] MEDS: MULTIVITAMINS/MINERALS THERAP 1 TAB PO SCH (09:00)
[2022-11-08] MEDS: metFORMIN XR 500MG TAB *GLUCOPHAGE XR PO SCH (17:03)
[2022-11-09] MEDS: LEVOTHYROXINE 75MCG TABLET (0.075MG) PO SCH (06:00)
[2022-11-09] MEDS: BENZTROPINE 2 MG TAB PO SCH ×2 (09:00→20:56)
[2022-11-09] MEDS: MULTIVITAMINS/MINERALS THERAP 1 TAB PO SCH (09:00)
[2022-11-09] MEDS: **PENDING PPD ENTRY XX SCH (09:00)
[2022-11-09] MEDS: LORazepam 2 MG TAB PO PRN (13:30)
[2022-11-09] MEDS: metFORMIN XR 500MG TAB *GLUCOPHAGE XR PO SCH (17:23)
[2022-11-10] MEDS: LEVOTHYROXINE 75MCG TABLET (0.075MG) PO SCH (06:00)
[2022-11-10] MEDS: **PENDING PPD ENTRY XX SCH (09:00)
[2022-11-10] MEDS: MULTIVITAMINS/MINERALS THERAP 1 TAB PO SCH (09:00)
[2022-11-10] MEDS: BENZTROPINE 2 MG TAB PO SCH ×2 (09:00→20:17)
[2022-11-10] MEDS: metFORMIN XR 500MG TAB *GLUCOPHAGE XR PO SCH (17:12)
[2022-11-11] MEDS: LEVOTHYROXINE 75MCG TABLET (0.075MG) PO SCH (05:02)
[2022-11-11] MEDS: MULTIVITAMINS/MINERALS THERAP 1 TAB PO SCH (09:00)
[2022-11-11] MEDS: **PENDING PPD ENTRY XX SCH (09:00)
[2022-11-11] MEDS: BENZTROPINE 2 MG TAB PO SCH ×2 (09:00→20:38)
[2022-11-11] MEDS: NICOTINE POLACRILEX 2 MG GUM PO PRN (16:34)
[2022-11-11] MEDS: metFORMIN XR 500MG TAB *GLUCOPHAGE XR PO SCH (18:00)
[2022-11-12] MEDS: LEVOTHYROXINE 75MCG TABLET (0.075MG) PO SCH (05:01)
[2022-11-12] MEDS: BENZTROPINE 2 MG TAB PO SCH ×2 (09:00→20:41)
[2022-11-12] MEDS: **PENDING PPD ENTRY XX SCH (09:00)
[2022-11-12] MEDS: MULTIVITAMINS/MINERALS THERAP 1 TAB PO SCH (09:00)
[2022-11-12] MEDS: metFORMIN XR 500MG TAB *GLUCOPHAGE XR PO SCH (17:49)
[2022-11-12] MEDS: NICOTINE POLACRILEX 2 MG GUM PO PRN (19:01)
[2022-11-13] MEDS: LEVOTHYROXINE 75MCG TABLET (0.075MG) PO SCH (05:10)
[2022-11-13] MEDS: **PENDING PPD ENTRY XX SCH (10:18)
[2022-11-13] MEDS: BENZTROPINE 2 MG TAB PO SCH ×2 (10:18→21:00)
[2022-11-13] MEDS: MULTIVITAMINS/MINERALS THERAP 1 TAB PO SCH (10:18)
[2022-11-13] MEDS: metFORMIN XR 500MG TAB *GLUCOPHAGE XR PO SCH (17:19)
[2022-11-14] MEDS: LEVOTHYROXINE 75MCG TABLET (0.075MG) PO SCH (06:00)
[2022-11-14] MEDS: **PENDING PPD ENTRY XX SCH (09:00)
[2022-11-14] MEDS: BENZTROPINE 2 MG TAB PO SCH ×2 (09:00→21:00)
[2022-11-14] MEDS: MULTIVITAMINS/MINERALS THERAP 1 TAB PO SCH (09:00)
[2022-11-14] MEDS: metFORMIN XR 500MG TAB *GLUCOPHAGE XR PO SCH (17:55)
[2022-11-14] MEDS: MAALOX 30 ML SUSP *UDC PO PRN (20:30)
[2022-11-15] MEDS: LEVOTHYROXINE 75MCG TABLET (0.075MG) PO SCH (06:00)
[2022-11-15] MEDS: **PENDING PPD ENTRY XX SCH (09:00)
[2022-11-15] MEDS: MULTIVITAMINS/MINERALS THERAP 1 TAB PO SCH (09:00)
[2022-11-15] MEDS: BENZTROPINE 2 MG TAB PO SCH ×2 (09:00→20:17)
[2022-11-15] MEDS: LORazepam 2 MG TAB PO PRN (10:04)
[2022-11-15] MEDS: metFORMIN XR 500MG TAB *GLUCOPHAGE XR PO SCH (18:00)
[2022-11-16] MEDS: LEVOTHYROXINE 75MCG TABLET (0.075MG) PO SCH (05:12)
[2022-11-16] MEDS: LORazepam 2 MG TAB PO PRN (07:48)
[2022-11-16] MEDS: BENZTROPINE 2 MG TAB PO SCH ×2 (08:14→20:48)
[2022-11-16] MEDS: **PENDING PPD ENTRY XX SCH (08:14)
[2022-11-16] MEDS: MULTIVITAMINS/MINERALS THERAP 1 TAB PO SCH (08:14)
[2022-11-16] MEDS: metFORMIN XR 500MG TAB *GLUCOPHAGE XR PO SCH (17:12)
[2022-11-17] MEDS: LEVOTHYROXINE 75MCG TABLET (0.075MG) PO SCH (05:17)
[2022-11-17] MEDS: BENZTROPINE 2 MG TAB PO SCH ×2 (08:29→21:00)
[2022-11-17] MEDS: MULTIVITAMINS/MINERALS THERAP 1 TAB PO SCH (08:30)
[2022-11-17] MEDS: **PENDING PPD ENTRY XX SCH (08:30)
[2022-11-17] MEDS: LORazepam 2 MG TAB PO PRN (08:37)
[2022-11-17] MEDS: metFORMIN XR 500MG TAB *GLUCOPHAGE XR PO SCH (17:34)
[2022-11-18] MEDS: LEVOTHYROXINE 75MCG TABLET (0.075MG) PO SCH (05:41)
[2022-11-18] MEDS: BENZTROPINE 2 MG TAB PO SCH ×2 (09:00→21:00)
[2022-11-18] MEDS: **PENDING PPD ENTRY XX SCH (09:00)
[2022-11-18] MEDS: MULTIVITAMINS/MINERALS THERAP 1 TAB PO SCH (09:00)
[2022-11-18] MEDS ORDERED: LORazepam 2 MG/ML 1ML VIAL IM STA (09:13)
[2022-11-18] MEDS ORDERED: diphenhydrAMINE 50MG/ML VIAL IM STA (09:13)
[2022-11-18] MEDS ORDERED: HALOPERIDOL 5MG/ML 1ML VIAL IM STA (09:13)
[2022-11-18] MEDS: metFORMIN XR 500MG TAB *GLUCOPHAGE XR PO SCH (17:07)
[2022-11-18] MEDS: fluPHENAZine 5MG TABLET PO SCH (21:00)
[2022-11-18] MEDS: LORazepam 2 MG TAB PO PRN (22:01)
[2022-11-19] MEDS: LEVOTHYROXINE 75MCG TABLET (0.075MG) PO SCH (05:51)
[2022-11-19] MEDS: DIVALPROEX 250MG *ER* TAB PO SCH (09:00)
[2022-11-19] MEDS: MULTIVITAMINS/MINERALS THERAP 1 TAB PO SCH (09:00)
[2022-11-19] MEDS: BENZTROPINE 2 MG TAB PO SCH ×2 (09:00→22:33)
[2022-11-19] MEDS: **PENDING PPD ENTRY XX SCH (09:00)
[2022-11-19] MEDS: ARIPiprazole 10 MG TAB PO SCH (09:00)
[2022-11-19] MEDS: fluPHENAZine 5MG TABLET PO SCH ×2 (09:00→22:33)
[2022-11-19] MEDS: HALOPERIDOL 5MG/ML 1ML VIAL IM PRN (10:24)
[2022-11-19] MEDS: metFORMIN XR 500MG TAB *GLUCOPHAGE XR PO SCH (17:34)
[2022-11-20] MEDS: LEVOTHYROXINE 75MCG TABLET (0.075MG) PO SCH (05:21)
[2022-11-20] MEDS: fluPHENAZine 5MG TABLET PO SCH ×3 (09:00→22:01)
[2022-11-20] MEDS: BENZTROPINE 2 MG TAB PO SCH ×2 (09:00→21:00)
[2022-11-20] MEDS: **PENDING PPD ENTRY XX SCH (09:00)
[2022-11-20] MEDS: ARIPiprazole 10 MG TAB PO SCH (09:00)
[2022-11-20] MEDS: DIVALPROEX 250MG *ER* TAB PO SCH (09:00)
[2022-11-20] MEDS: MULTIVITAMINS/MINERALS THERAP 1 TAB PO SCH (09:00)
[2022-11-20] MEDS: HALOPERIDOL 5MG/ML 1ML VIAL IM PRN (10:20)
[2022-11-20] MEDS: metFORMIN XR 500MG TAB *GLUCOPHAGE XR PO SCH (17:49)
[2022-11-21] MEDS: LORazepam 2 MG TAB PO PRN ×2 (05:02→15:00)
[2022-11-21] MEDS: diphenhydrAMINE 12.5MG/5ML ELIXIR UDC PO PRN (05:09)
[2022-11-21] MEDS: LEVOTHYROXINE 75MCG TABLET (0.075MG) PO SCH (05:23)
[2022-11-21] MEDS ORDERED: HALOPERIDOL DECANOATE 100 MG/ML 1ML VIAL IM SCH (09:00)
[2022-11-21] MEDS: MULTIVITAMINS/MINERALS THERAP 1 TAB PO SCH (09:00)
[2022-11-21] MEDS: BENZTROPINE 2 MG TAB PO SCH ×2 (09:00→21:00)
[2022-11-21] MEDS: ARIPiprazole 10 MG TAB PO SCH (09:00)
[2022-11-21] MEDS: DIVALPROEX 250MG *ER* TAB PO SCH (09:00)
[2022-11-21] MEDS: **PENDING PPD ENTRY XX SCH (09:00)
[2022-11-21] MEDS: fluPHENAZine 5MG TABLET PO SCH ×2 (09:00→21:36)
[2022-11-21] MEDS: metFORMIN XR 500MG TAB *GLUCOPHAGE XR PO SCH (17:13)
[2022-11-22] MEDS: LEVOTHYROXINE 75MCG TABLET (0.075MG) PO SCH (06:00)
[2022-11-22] MEDS: **PENDING PPD ENTRY XX SCH (09:00)
[2022-11-22] MEDS: ARIPiprazole 10 MG TAB PO SCH (09:00)
[2022-11-22] MEDS: fluPHENAZine 5MG TABLET PO SCH ×2 (09:00→21:00)
[2022-11-22] MEDS: DIVALPROEX 250MG *ER* TAB PO SCH (09:00)
[2022-11-22] MEDS: BENZTROPINE 2 MG TAB PO SCH ×2 (09:00→21:00)
[2022-11-22] MEDS: MULTIVITAMINS/MINERALS THERAP 1 TAB PO SCH (09:00)
[2022-11-22] MEDS: LORazepam 2 MG TAB PO PRN (10:07)
[2022-11-22] MEDS: HALOPERIDOL 5MG/ML 1ML VIAL IM PRN ×2 (10:42→22:54)
[2022-11-22] MEDS: metFORMIN XR 500MG TAB *GLUCOPHAGE XR PO SCH (17:08)
[2022-11-23] MEDS: LEVOTHYROXINE 75MCG TABLET (0.075MG) PO SCH (05:27)
[2022-11-23] MEDS: BENZTROPINE 2 MG TAB PO SCH ×2 (09:00→21:00)
[2022-11-23] MEDS: ARIPiprazole 10 MG TAB PO SCH (09:00)
[2022-11-23] MEDS: MULTIVITAMINS/MINERALS THERAP 1 TAB PO SCH (09:00)
[2022-11-23] MEDS: **PENDING PPD ENTRY XX SCH (09:00)
[2022-11-23] MEDS: fluPHENAZine 5MG TABLET PO SCH ×2 (09:00→22:13)
[2022-11-23] MEDS: DIVALPROEX 250MG *ER* TAB PO SCH (09:00)
[2022-11-23] MEDS: LORazepam 2 MG TAB PO PRN (09:59)
[2022-11-23] MEDS: HALOPERIDOL 5MG/ML 1ML VIAL IM PRN (10:23)
[2022-11-23] MEDS: metFORMIN XR 500MG TAB *GLUCOPHAGE XR PO SCH (17:04)
[2022-11-24] MEDS: LEVOTHYROXINE 75MCG TABLET (0.075MG) PO SCH (05:45)
[2022-11-24] MEDS: BENZTROPINE 2 MG TAB PO SCH ×2 (09:00→20:36)
[2022-11-24] MEDS: MULTIVITAMINS/MINERALS THERAP 1 TAB PO SCH (09:00)
[2022-11-24] MEDS: **PENDING PPD ENTRY XX SCH (09:00)
[2022-11-24] MEDS: DIVALPROEX 250MG *ER* TAB PO SCH (09:00)
[2022-11-24] MEDS ORDERED: HALOPERIDOL DECANOATE 100 MG/ML 1ML VIAL IM SCH (09:00)
[2022-11-24] MEDS: ARIPiprazole 10 MG TAB PO SCH (10:57)
[2022-11-24] MEDS: fluPHENAZine 5MG TABLET PO SCH ×2 (10:57→20:36)
[2022-11-24] MEDS: metFORMIN XR 500MG TAB *GLUCOPHAGE XR PO SCH (17:35)
[2022-11-24] MEDS: LORazepam 2 MG TAB PO PRN (20:36)
[2022-11-25] MEDS: MAALOX 30 ML SUSP *UDC PO PRN (00:09)
[2022-11-25] MEDS: LEVOTHYROXINE 75MCG TABLET (0.075MG) PO SCH (05:12)
[2022-11-25] MEDS ORDERED: FLUP5TAB13 PO (08:26)
[2022-11-25] MEDS ORDERED: ABIL10TA9 PO (08:26)
[2022-11-25] MEDS ORDERED: HALO10AM IM (08:26)
[2022-11-25] MEDS ORDERED: BENZ2TAB48 PO (08:26)
[2022-11-25] MEDS: MULTIVITAMINS/MINERALS THERAP 1 TAB PO SCH (09:00)
[2022-11-25] MEDS: ARIPiprazole 10 MG TAB PO SCH (09:00)
[2022-11-25] MEDS: DIVALPROEX 250MG *ER* TAB PO SCH (09:00)
[2022-11-25] MEDS: BENZTROPINE 2 MG TAB PO SCH (09:00)
[2022-11-25] MEDS: **PENDING PPD ENTRY XX SCH (09:00)
[2022-11-25] MEDS: fluPHENAZine 5MG TABLET PO SCH (09:00)
[2022-11-25] MEDS: HALOPERIDOL 5MG/ML 1ML VIAL IM PRN (09:56)
[2022-11-25] MEDS ORDERED: chlorproMAZINE INJ 50MG/2ML AMP IM ONE (11:00)
[2022-11-25] MEDS: LORazepam 2 MG TAB PO PRN (13:15)
== END 2022-11-25 13:44 | DRG 885 ==
LOC: M ED 17:02 → M ED INP 08-19 12:30 → M PSY 08-19 15:00
PROVIDERS: ADMIT Student in an Organized Health Care Education/Training Program; ATTEND Student in an Organized Health Care Education/Training Program
DX: F25.0 Schizoaffective disorder, bipolar type (principal); E11.9 Type 2 diabetes mellitus without complications; E03.9 Hypothyroidism, unspecified; Z79.890 Hormone replacement therapy; Z91.198 Patient's noncompliance with other medical treatment and regimen for other reason; Z79.84 Long term (current) use of oral hypoglycemic drugs; Z79.899 Other long term (current) drug therapy; Z88.2 Allergy status to sulfonamides; Z88.0 Allergy status to penicillin; Z88.1 Allergy status to other antibiotic agents; Z88.8 Allergy status to other drugs, medicaments and biological substances; Z78.1 Physical restraint status

== ENCOUNTER → 2023-09-09 | Outpatient (REF) | payer MEDICARE ==
[~2023-09-09] MED LIST changes: +ABIL10TA9 PO; +BENZ0.5T2 PO; -BENZ0.5T23 PO; +BENZ2TAB48 PO; +FLUP5TAB13 PO; +LORA1TAB23 PO; -LORA1TAB4 PO
[2023-09-09 18:09] LABS: ALBUMIN 3.7 G/DL (3.2-5.2); ALKALINE PHOSPHATASE 74 U/L (46-116); ALT/SGPT 14 U/L (7.0-40); AST/SGOT 8 U/L (<34); BILIRUBIN,TOTAL 0.4 MG/DL (0.3-1.2); BLOOD UREA NITROGEN 9 MG/DL (9-23); CALCIUM LEVEL 9.3 MG/DL (8.5-10.1); CARBON DIOXIDE LEVEL 27 MMOL/L (20-31); CHLORIDE LEVEL 108 MMOL/L (98-107); GLOMERULAR FILTRATION RATE > 60.0 (>60); GLUCOSE, FASTING 74 MG/DL (60-100); HCG, SERUM QUANTITATIVE < 2.6 MIU/ML (<4.2); POTASSIUM SERUM 4.7 MMOL/L (3.5-5.1); SODIUM LEVEL 138 MMOL/L (136-145); TOTAL PROTEIN 6.8 G/DL (5.7-8.2)
[2023-09-09 18:10] LABS: FREE T4 1.47 NG/DL (0.89-1.76); HEMOGLOBIN A1c 5.2 % (4.0-6.0)
== END ==
LOC: M SFHCCLAY 14:56
PROVIDERS: ATTEND Nurse Practitioner Family
DX: N91.2 Amenorrhea, unspecified (principal); R23.9 Unspecified skin changes; E11.9 Type 2 diabetes mellitus without complications; E03.9 Hypothyroidism, unspecified

== ENCOUNTER 2023-10-03 19:51 | Inpatient (IN) | payer MEDICARE ==
[~2023-10-03] VITALS: Ht 157.5 cm; Wt 82.7 kg
[~2023-10-03 19:51] MED LIST changes: -KLON0.5T PO; +KLON0.5T8 PO
[2023-10-03 20:49] LABS: HEMATOCRIT 46.3 % (36.0-47.0); HEMOGLOBIN 15.6 g/dl (12.0-15.5); MEAN CORPUSCULAR HEMOGLOBIN 27.5 pg (27.0-33.0); MEAN CORPUSCULAR HGB CONC 33.7 g/dl (32.0-36.5); MEAN CORPUSCULAR VOLUME 81.5 fl (80.0-96.0); PLATELET COUNT, AUTOMATED 292 10^3/uL (150-450); RED BLOOD COUNT 5.68 10^6/uL (4.00-5.40); WHITE BLOOD COUNT 8.2 10^3/uL (4.0-10.0)
[2023-10-03 21:11] LABS: ETHYL ALCOHOL (ETHANOL) < 0.003 % (0.000-0.010)
[2023-10-03 21:13] LABS: ALBUMIN 4.3 G/DL (3.2-5.2); ALKALINE PHOSPHATASE 99 U/L (46-116); ALT/SGPT 23 U/L (7.0-40); AST/SGOT 20 U/L (<34); BILIRUBIN,DIRECT 0.2 MG/DL (<0.4); BILIRUBIN,TOTAL 0.5 MG/DL (0.3-1.2); BLOOD UREA NITROGEN 9 MG/DL (9-23); CALCIUM LEVEL 9.1 MG/DL (8.5-10.1); CARBON DIOXIDE LEVEL 26 MMOL/L (20-31); CHLORIDE LEVEL 106 MMOL/L (98-107); CREATININE FOR GFR 0.67 MG/DL (0.55-1.30); GLOMERULAR FILTRATION RATE > 60.0 (>60); GLUCOSE, FASTING 115 MG/DL (60-100); POTASSIUM SERUM 3.2 MMOL/L (3.5-5.1); SALICYLATE LEVEL < 3.0 MG/DL (<30); SODIUM LEVEL 140 MMOL/L (136-145); TOTAL PROTEIN 7.4 G/DL (5.7-8.2)
[2023-10-03 21:15] LABS: THYROID STIMULATING HORMONE 1.823 uIU/ML (0.55-4.78)
[2023-10-03 21:22] LABS: HCG, SERUM QUALITATIVE NEGATIVE (NEGATIVE)
[2023-10-03 21:54] LABS: BARBITURATES URINE NEGATIVE (NEGATIVE); BENZODIAZEPINES URINE NEGATIVE (NEGATIVE); CANNABINOIDS URINE NEGATIVE (NEGATIVE); METHADONE URINE NEGATIVE (NEGATIVE); OPIATES URINE NEGATIVE (NEGATIVE); PHENCYCLIDINE URINE NEGATIVE (NEGATIVE)
[2023-10-03 22:15] LABS: AMPHETAMINES LEVEL URINE POSITIVE (NEGATIVE); COCAINE METABOLITE URINE POSITIVE (NEGATIVE)
[2023-10-03] MEDS ORDERED: diphenhydrAMINE 25MG CAP PO PRN (23:00)
[2023-10-03] MEDS ORDERED: OLANZapine 5 MG TAB PO PRN (23:00)
[2023-10-03] MEDS ORDERED: ACETAMINOPHEN TAB 650MG DOSE (2X325MG) PO PRN (23:00)
[2023-10-03] MEDS ORDERED: MOM 30ML SUSPENSION UDC PO PRN (23:00)
[2023-10-03] MEDS ORDERED: IBUPROFEN 400MG TAB PO PRN (23:00)
[2023-10-03] MEDS: POTASSIUM CHLORIDE 10MEQ SR TABLET PO ONE (23:07)
[2023-10-03] MEDS ORDERED: HOME MED LIST COMPLETE! XX SCH (23:30)
[2023-10-04] MEDS ORDERED: HALO10AM IM (11:11)
[2023-10-04] MEDS ORDERED: NICOTINE 21MG/24HR 1 EA TRANSDERMAL TD PRN (12:05)
[2023-10-04] MEDS: LEVOTHYROXINE 75MCG TABLET (0.075MG) PO SCH (12:18)
[2023-10-04] MEDS: LORazepam 0.5 MG TAB PO ONE (12:20)
[2023-10-04 16:30] VITALS: BP 140/100; TEMP 98.1; O2SAT 100
[2023-10-04] MEDS: OLANZapine ORAL DISINTEGRATING TAB 5MG PO PRN (18:36)
[2023-10-04] MEDS: LORazepam 1 MG TAB PO PRN (19:45)
[2023-10-04] MEDS: traZODone 50 MG TAB PO PRN (20:52)
[2023-10-04] MEDS: OLANZapine 10 MG TAB PO SCH (20:52)
[2023-10-05 06:35] VITALS: BP 152/104; TEMP 97.2; O2SAT 100
[2023-10-05] MEDS: fluPHENAZine DECAN 25MG/ML 5ML VIAL IM SCH (15:17)
[2023-10-06] MEDS ORDERED: HALOPERIDOL DECANOATE 100 MG/ML 1ML VIAL IM ONE (09:50)
[2023-10-06] MEDS: fluPHENAZine 5MG TABLET PO SCH (10:33)
[2023-10-06] MEDS: OLANZapine INTRAMUSCULAR 10MG VIAL IM ONE (13:44)
[2023-10-06] MEDS: HALOPERIDOL 5MG/ML 1ML VIAL IM ONE (20:21)
[2023-10-06] MEDS: LORazepam 2 MG/ML 1ML VIAL IM ONE (20:21)
[2023-10-06] MEDS: diphenhydrAMINE 50MG/ML VIAL IM ONE (20:21)
[2023-10-07] MEDS: LITHIUM CARBONATE 300 MG **CR** TAB PO SCH (09:10)
[2023-10-08] MEDS: MAALOX 30 ML SUSP *UDC PO PRN (15:13)
[2023-10-08 17:14] VITALS: BP 142/84; TEMP 97
[2023-10-09 06:23] VITALS: BP 156/110; TEMP 97.9; O2SAT 99
[2023-10-10 18:50] VITALS: BP 142/80
[2023-10-10] MEDS: LITHIUM CARBONATE 300 MG **CR** TAB PO SCH (20:14)
[2023-10-12] MEDS: LORazepam 1 MG TAB PO PRN (15:11)
[2023-10-12 16:11] VITALS: BP 134/89; TEMP 97.9; O2SAT 96
[2023-10-14] MEDS ORDERED: ATIV1TAB7 PO (08:59)
[2023-10-14] MEDS ORDERED: OLAN5ZYD PO (08:59)
[2023-10-14] MEDS ORDERED: OLAN1TAB20 PO (08:59)
[2023-10-14] MEDS ORDERED: LITH1TAB PO (08:59)
[2023-10-14] MEDS ORDERED: NICO21PAT TD (08:59)
[2023-10-14] MEDS ORDERED: FLUP25VL IM (08:59)
== END 2023-10-14 14:24 | disposition home or self-care (01) | DRG 885 ==
LOC: M ED 19:51 → M ED INP 22:59 → M PSY 10-04 02:50
PROVIDERS: ADMIT Student in an Organized Health Care Education/Training Program; ATTEND Student in an Organized Health Care Education/Training Program
DX: F25.0 Schizoaffective disorder, bipolar type (principal); E03.9 Hypothyroidism, unspecified; F17.200 Nicotine dependence, unspecified, uncomplicated; Z79.890 Hormone replacement therapy; Z79.899 Other long term (current) drug therapy; Z91.51 Personal history of suicidal behavior; Z88.0 Allergy status to penicillin; Z88.1 Allergy status to other antibiotic agents; Z88.2 Allergy status to sulfonamides; Z88.8 Allergy status to other drugs, medicaments and biological substances; Z11.52 Encounter for screening for COVID-19

== ENCOUNTER → 2024-08-13 | Outpatient (CLI) | payer MEDICARE, MEDICAID ==
[~2024-08-13] MED LIST changes: -ARIP10TA32; -ARIP10TA32 PO; +ARIP10TA63; +ARIP10TA63 PO; +FLUP25VL IM; -GEOD40CA13 PO; +NICO21PAT TD; +OLAN1TAB20 PO; -OLAN2.5T25 PO; +OLAN2.5T53 PO; +OLAN5ZYD PO; +ZIPR40CA27 PO; -ZIPR80CA12 PO; +ZIPR80CA31 PO
[2024-08-13 18:07] LABS: BASO % 0.4 % (0.0-1.0); EOS # 0.3 10^3/uL (0.0-0.5); EOS % 3.2 % (0.0-3.0); HEMATOCRIT 43.9 % (36.0-47.0); HEMOGLOBIN 14.4 g/dl (12.0-15.5); HEMOGLOBIN A1c 5.5 % (4.0-6.0); LYMPH # 2.6 10^3/uL (1.5-5.0); LYMPH % 31.5 % (24.0-44.0); MEAN CORPUSCULAR HEMOGLOBIN 27.3 pg (27.0-33.0); MEAN CORPUSCULAR HGB CONC 32.8 g/dl (32.0-36.5); MEAN CORPUSCULAR VOLUME 83.1 fl (80.0-96.0); MONO # 0.5 10^3/uL (0.0-0.8); NEUTROPHILS # 4.9 10^3/uL (1.5-8.5); NEUTROPHILS % 58.7 % (36.0-66.0); PLATELET COUNT, AUTOMATED 328 10^3/uL (150-450); RED BLOOD COUNT 5.28 10^6/uL (4.00-5.40); WHITE BLOOD COUNT 8.4 10^3/uL (4.0-10.0)
[2024-08-13 18:24] LABS: LITHIUM LEVEL 0.41 MMOL/L (1.0-1.20)
[2024-08-13 18:25] LABS: ALBUMIN 3.9 G/DL (3.2-5.2); ALKALINE PHOSPHATASE 86 U/L (35-104); ALT/SGPT 85 U/L (7.0-40); AST/SGOT 54 U/L (<34); BILIRUBIN,TOTAL 0.3 MG/DL (0.3-1.2); BLOOD UREA NITROGEN 9 MG/DL (9-23); CALCIUM LEVEL 9.8 MG/DL (8.5-10.1); CARBON DIOXIDE LEVEL 26 MMOL/L (20-31); CHLORIDE LEVEL 107 MMOL/L (98-107); CHOLESTEROL LEVEL 189 MG/DL (<200); GLOMERULAR FILTRATION RATE > 60.0 (>60); GLUCOSE, FASTING 89 MG/DL (60-100); HDL CHOLESTEROL 49.7 MG/DL (>40); LDL CHOLESTEROL 102.7 MG/DL (<100); NON-HDL-C 139.3 MG/DL; POTASSIUM SERUM 4.5 MMOL/L (3.5-5.1); SODIUM LEVEL 142 MMOL/L (136-145); THYROID STIMULATING HORMONE 1.211 uIU/ML (0.55-4.78); TOTAL PROTEIN 7.4 G/DL (5.7-8.2); TRIGLYCERIDES LEVEL 183 MG/DL (<150)
[2024-08-13 18:27] LABS: HCG, SERUM QUALITATIVE NEGATIVE (NEGATIVE)
== END ==
LOC: M PLALAB 15:02
PROVIDERS: ATTEND Student in an Organized Health Care Education/Training Program
DX: F20.9 Schizophrenia, unspecified (principal); Z79.899 Other long term (current) drug therapy

== ENCOUNTER 2024-12-03 14:47 | Emergency (ER) | payer MEDICARE, MEDICAID ==
[~2024-12-03 14:47] MED LIST changes: -AMBI10TA PO; -AMBI6.25 PO; +ZOLP-533 PO; +ZOLP6.2544 PO
[2024-12-03 15:21] LABS: HEMATOCRIT 40.1 % (36.0-47.0); HEMOGLOBIN 13.4 g/dl (12.0-15.5); MEAN CORPUSCULAR HEMOGLOBIN 27.7 pg (27.0-33.0); MEAN CORPUSCULAR HGB CONC 33.4 g/dl (32.0-36.5); MEAN CORPUSCULAR VOLUME 82.9 fl (80.0-96.0); PLATELET COUNT, AUTOMATED 412 10^3/uL (150-450); RED BLOOD COUNT 4.84 10^6/uL (4.00-5.40); WHITE BLOOD COUNT 13.4 10^3/uL (4.0-10.0)
[2024-12-03 15:47] LABS: ETHYL ALCOHOL (ETHANOL) < 0.003 % (0.000-0.010)
[2024-12-03 15:49] LABS: ALKALINE PHOSPHATASE 84 U/L (35-104); ALT/SGPT 26 U/L (7.0-40); AST/SGOT 23 U/L (<34); BILIRUBIN,DIRECT < 0.1 MG/DL (<0.4); BILIRUBIN,TOTAL 0.3 MG/DL (0.3-1.2); BLOOD UREA NITROGEN 12 MG/DL (9-23); CALCIUM LEVEL 9.5 MG/DL (8.5-10.1); CARBON DIOXIDE LEVEL 23 MMOL/L (20-31); CHLORIDE LEVEL 106 MMOL/L (98-107); CREATININE FOR GFR 0.72 MG/DL (0.55-1.30); GLOMERULAR FILTRATION RATE > 90.0 (>60); GLUCOSE, FASTING 120 MG/DL (60-100); HCG, SERUM QUALITATIVE NEGATIVE (NEGATIVE); POTASSIUM SERUM 3.6 MMOL/L (3.5-5.1); SALICYLATE LEVEL < 3.0 MG/DL (<30); SODIUM LEVEL 139 MMOL/L (136-145); TOTAL PROTEIN 7.3 G/DL (5.7-8.2)
[2024-12-03 15:51] LABS: THYROID STIMULATING HORMONE 2.881 uIU/ML (0.55-4.78)
[2024-12-03 16:22] LABS: METHADONE URINE NEGATIVE (NEGATIVE); OPIATES URINE NEGATIVE (NEGATIVE)
[2024-12-03 16:23] LABS: AMPHETAMINES LEVEL URINE NEGATIVE (NEGATIVE); BARBITURATES URINE NEGATIVE (NEGATIVE); BENZODIAZEPINES URINE NEGATIVE (NEGATIVE); CANNABINOIDS URINE NEGATIVE (NEGATIVE); PHENCYCLIDINE URINE NEGATIVE (NEGATIVE)
[2024-12-03 16:24] LABS: COCAINE METABOLITE URINE POSITIVE (NEGATIVE)
[2024-12-03 18:51] VITALS: BP 131/78; TEMP 98; O2SAT 97
== END 2024-12-03 19:08 | disposition home or self-care (01) ==
LOC: M ED 14:47
DX: F25.0 Schizoaffective disorder, bipolar type (principal); F14.10 Cocaine abuse, uncomplicated; E03.9 Hypothyroidism, unspecified; Z79.899 Other long term (current) drug therapy; Z88.2 Allergy status to sulfonamides; Z88.0 Allergy status to penicillin; Z88.1 Allergy status to other antibiotic agents; Z88.8 Allergy status to other drugs, medicaments and biological substances

== ENCOUNTER → 2024-12-07 | Outpatient (CLI) | payer MEDICARE, MEDICAID | LOC: M WUC 09:43 | PROVIDERS: ATTEND Nurse Practitioner Family | DX: M25.572 Pain in left ankle and joints of left foot (principal); M79.89 Other specified soft tissue disorders; S82.52XA Displaced fracture of medial malleolus of left tibia, initial encounter for closed fracture; X58.XXXA Exposure to other specified factors, initial encounter; Y92.9 Unspecified place or not applicable; Y93.9 Activity, unspecified; Y99.9 Unspecified external cause status; M77.32 Calcaneal spur, left foot ==

== ENCOUNTER → 2025-06-14 | Outpatient (CLI) | payer MEDICARE, MEDICAID ==
[~2025-06-14] MED LIST changes: -ABIL400I IM; +ARIP400S IM; -DIPH50CA PO; +DIPH50CA31 PO; +FLUP25VI3 IM; -FLUP25VL IM
== END ==
LOC: M CLY 14:53
PROVIDERS: ATTEND Nurse Practitioner Family
DX: M54.2 Cervicalgia (principal); V89.2XXS Person injured in unspecified motor-vehicle accident, traffic, sequela